=== PATIENT | male | born 1950 | race Caucasian/White ===

== ENCOUNTER 2022-07-25 14:12 | Emergency (ER) | payer MEDICARE, SELFPAY ==
[2022-07-25 15:08] VITALS: BP 185/74; PULSE 69; RESP 16; TEMP 37.2; O2SAT 95; BMI 40.7
--- NOTE | 2022-07-25 15:41 | ED.GENADULT ---
HPI - General Adult General Chief complaint: Extremity Pain/Injury, Lower Stated complaint: Possible Cellulitis both legs Time Seen by Provider: 07/25/22 15:31 History of Present Illness HPI narrative: This 72-year-old male comes in with bilateral lower extremity swelling and erythema with some skin breakdown. This is not a new situation for him but it seems to worsen in the past day or so. He does have diabetes with bilateral neuropathy in his lower extremities along with chronic pedal edema. He is taking a diuretic. He does not report any shortness of breath or chest pain. He does not report any new injury event. He has not had any fevers. Related Data Home Medications Medication Instructions Recorded Confirmed amlodipine 10 mg tablet mg PO DAILY 07/04/22 07/04/22 aspirin 81 mg tablet,delayed mg PO DAILY 07/04/22 07/04/22 release atorvastatin 80 mg tablet mg PO .Bedtime 07/04/22 07/04/22 dabigatran etexilate 150 mg capsule 150 mg PO BID 07/04/22 07/04/22 duloxetine 60 mg capsule,delayed 60 mg PO DAILY 07/04/22 07/04/22 release escitalopram oxalate 20 mg tablet 20 mg PO DAILY 07/04/22 07/04/22 glipizide 5 mg tablet 5 mg PO DAILY 07/04/22 07/04/22 hydrochlorothiazide 12.5 mg tablet mg PO DAILY 07/04/22 07/04/22 lidocaine 5 % topical ointment 1 applic topical .Daily as needed 07/04/22 07/04/22 PRN lisinopril 20 mg tablet 30 mg PO DAILY 07/04/22 07/04/22 magnesium oxide 500 mg capsule mg PO DAILY 07/04/22 07/04/22 metformin 850 mg tablet 850 mg PO BID 07/04/22 07/04/22 metolazone 5 mg tablet mg PO DAILY 07/04/22 07/04/22 multivitamin (Multiple Vitamins 1 tab PO QDAY 07/04/22 07/04/22 tablet) ropinirole 2 mg tablet 2 mg PO .Bedtime 07/04/22 07/04/22 torsemide 20 mg tablet 40 mg PO DAILY 07/04/22 07/04/22 trazodone 150 mg tablet mg PO .Bedtime 07/04/22 07/04/22 Previous Rx's Medication Instructions Recorded tamsulosin 0.4 mg capsule 0.4 mg PO QDAY #30 caps 07/04/22 cephalexin 500 mg capsule 500 mg PO TID 7 days #21 caps 07/25/22 Allergies Allergy/AdvReac Type Severity Reaction Status Date / Time No Known Allergies Allergy Verified 07/04/22 10:56 Review of Systems Status of ROS: Reports: 10 or more systems reviewed and unremarkable except as noted in History and below Narrative: Constitutional: No fevers, no weight gain or loss. Eyes: No discharge. No vision changes. HENT: No congestion, no sore throat, no ear pain. Cardiovascular: No chest pain, no palpitations. Respiratory: No shortness of breath, no wheezes, no cough. Gastrointestinal: No abdominal pain, no vomiting, no diarrhea. Genitourinary: No dysuria, no hematuria. Musculoskeletal: Normal range of motion. Bilateral lower extremity swelling which is worse recently with some erythema that is increased and areas of skin breakdown. Skin: No rashes, no pruritis. Neurological: No dizziness, weakness, sensory change, speech change. Endo/Heme/Allergies: No bruising or bleeding. No polydipsia. Pysch: no suicidality, no anxiety, no insomnia. All other systems reviewed and are negative. [facility] Medical History (Updated 07/25/22 @ 17:17 by Aubrey Noland MD) Acute kidney injury Arthralgia of hip Behavioral change Bladder spasm Fatigue Hypotension Impaired glucose tolerance Pain and swelling of right elbow Squamous cell carcinoma Surgical History (Updated 04/27/22 @ 10:54 by Conrad Myles) History of colectomy History of removal of neck cyst Family History (Updated 04/07/22 @ 13:36 by Stacey Miner) Mother Cancer Father Heart disease Social History (Updated 04/07/22 @ 13:37 by Stacey Miner) Narrative: Does not drink alcohol Does not use illicit drugs Nonsmoker Smoking Status: Never smoker How often do you have a drink containing alcohol: 2-3 times a week AUDIT-C Alcohol total score: 3 Non-prescribed substance use: denies use Exam Narrative: Exam Narrative: Constitutional: Well-developed, well-nourished, no acute distress. HEENT: Normocephalic, atraumatic. Neck: Normal range of motion. Nontender. Supple. Heart: Regular. No murmurs. Normal rate. Intact distal pulses. Lungs: Clear to auscultation. No chest discomfort. No wheezes, rhonchi, or rales. Abdomen: Normal bowel sounds. Nontender. No rebound tenderness. Genitalia: Deferred. Back: No midline tenderness. Normal range of motion. Extremities: Normal range of motion. Bilateral large lower extremity edema with erythema and skin breakdown. Skin: No rash. Warm. No pallor. Neurologic: No altered sensation. No weakness. Alert and oriented. Psychiatric: No suicidality. No anxiety or depression. No insomnia. Nursing notes and vitals signs are reviewed. Const: Vital Signs, click to edit/add: Vital Signs - 24 hr 07/25/22 15:08 07/25/22 16:33 Temperature 98.9 F Pulse Rate [Pulse Oximeter] 69 69 Respiratory Rate 16 20 Blood Pressure [ri ght lower arm] 185/74 H 173/82 H Pulse Oximetry 95 96 Oxygen Delivery Me thod Room Air Room Air Course Vital Signs Vital signs: Initial Vital Signs Temperature 98.9 F 07/25/22 15:08 Temperature Source Temporal Artery Scan 07/25/22 15:08 Pulse Rate 69 07/25/22 15:08 Respiratory Rate 16 07/25/22 15:08 Blood Pressure 185/74 H 07/25/22 15:08 Blood Pressure Mean 111 07/25/22 15:08 Blood Pressure Position Sitting 07/25/22 15:08 Pulse Oximetry 95 07/25/22 15:08 Oxygen Delivery Method 07/25/22 15:08 Vital Signs Temperature 98.9 F 07/25/22 15:08 Pulse Rate 69 07/25/22 15:08 Respiratory Rate 16 07/25/22 15:08 Blood Pressure 185/74 H 07/25/22 15:08 Pulse Oximetry 95 07/25/22 15:08 Oxygen Delivery Method 07/25/22 15:08 Temperature 98.9 F 07/25/22 15:08 Pulse Rate 69 07/25/22 16:33 Respiratory Rate 20 07/25/22 16:33 Blood Pressure 173/82 H 07/25/22 16:33 Pulse Oximetry 96 07/25/22 16:33 Oxygen Delivery Method 07/25/22 16:33 Medical Decision Making MDM Narrative Medical decision making narrative: This patient comes in with his out of concerned that he may have an infection in his lower extremities. He does have large pedal edema which is chronic but seems worse according to them over the past few days. He is taking a diuretic and states that he is urinating frequently. He has not had any fevers. Labs were drawn and results with reassuring findings. He has a normal white count and his lactate is normal also. The patient had taken 4 doses of amoxicillin that were at home. This was out of concern of an infection in his lower extremities. His lab results and actually the exam are not obvious for such infection but he certainly is at risk given the large edema and his diabetic neuropathy. I did prescribe Keflex 3 times daily for 1 week. I advised him to increase his diuretic to 2 tablets daily for a week or so for better diuresis. He also knows that he should keep his legs elevated when sitting. Lab Data Labs: Lab Results 07/25/22 07/25/22 07/25/22 Range/Units 16:01 16:01 16:01 WBC 7.53 (4.50-11.00) K/uL RBC 4.14 L (4.30-5.90) m/uL Hgb 12.3 L (13.5-17.5) gm/dL Hct 37.5 (37.0-53.0) % MCV 91 (80-100) fL MCH 30 (26-34) pg MCHC 33 (32-36) gm/dL RDW Coeff of Ellie 12.2 (11.5-15.5) % Plt Count 203 (140-440) K/uL Neut % (Auto) 60.9 (42.0-72.0) % Lymph % (Auto) 25.5 (20-44) % [place] % (Auto) 9.3 (0.0-11.0) % Eos % (Auto) 3.2 (0.0-7.0) % Baso % (Auto) 0.7 (0.0-3.0) % Neut # (Auto) 4.59 (1.7-7.0) K/uL Lymph # (Auto) 1.92 (0.90-2.90) K/uL [place] # (Auto) 0.70 (0.00-0.90) K/UL Eos # (Auto) 0.24 (0.00-0.50) K/uL Baso # (Auto) 0.05 (0.00-0.30) K/uL Abs Immat Gran (auto) 0.03 (0.00-0.30) K/uL Sodium 136 (135-149) mmol/L Potassium 4.2 (3.6-5.1) mmol/L Chloride 102 (96-114) mmol/L Carbon Dioxide 27 (20-32) mmol/L BUN 19 (7-30) mg/dL Creatinine 1.1 (0.5-1.5) mg/dL Estimated Creat Clear 64.67 Estimated GFR 70 ml/min Glucose 150 H (60-115) mg/dL Lactate (0.5-1.9) mmol/L Calcium 9.4 (8.4-10.6) mg/dL NT-Pro-B Natriuret Pep 181 H Cancelled (0-125) PG/mL 07/25/22 Range/Units 16:01 WBC (4.50-11.00) K/uL RBC (4.30-5.90) m/uL Hgb (13.5-17.5) gm/dL Hct (37.0-53.0) % MCV (80-100) fL MCH (26-34) pg MCHC (32-36) gm/dL RDW Coeff of Ellie (11.5-15.5) % Plt Count (140-440) K/uL Neut % (Auto) (42.0-72.0) % Lymph % (Auto) (20-44) % [place] % (Auto) (0.0-11.0) % Eos % (Auto) (0.0-7.0) % Baso % (Auto) (0.0-3.0) % Neut # (Auto) (1.7-7.0) K/uL Lymph # (Auto) (0.90-2.90) K/uL [place] # (Auto) (0.00-0.90) K/UL Eos # (Auto) (0.00-0.50) K/uL Baso # (Auto) (0.00-0.30) K/uL Abs Immat Gran (auto) (0.00-0.30) K/uL Sodium (135-149) mmol/L Potassium (3.6-5.1) mmol/L Chloride (96-114) mmol/L Carbon Dioxide (20-32) mmol/L BUN (7-30) mg/dL Creatinine (0.5-1.5) mg/dL Estimated Creat Clear Estimated GFR ml/min Glucose (60-115) mg/dL Lactate 1.1 (0.5-1.9) mmol/L Calcium (8.4-10.6) mg/dL NT-Pro-B Natriuret Pep (0-125) PG/mL Discharge Plan Discharge Clinical Impression: Type 2 diabetes mellitus, Peripheral neuropathy, Pedal edema Patient Disposition: Home, Self-Care Condition: Stable Additional Instructions: Take medication as prescribed. Increase diuretic medications to twice daily for 5-7 days. Keep lower extremities elevated when sitting. Follow-up with primary physician. Prescriptions: New cephalexin 500 mg capsule 500 mg PO TID 7 Days Qty: 21 0RF No Action duloxetine 60 mg capsule,delayed release(DR/EC) 60 mg PO DAILY aspirin 81 mg tablet,delayed release (DR/EC) PO DAILY dabigatran etexilate 150 mg capsule 150 mg PO BID hydrochlorothiazide 12.5 mg tablet PO DAILY glipizide 5 mg tablet 5 mg PO DAILY escitalopram oxalate 20 mg tablet 20 mg PO DAILY trazodone 150 mg tablet PO .Bedtime amlodipine 10 mg tablet PO DAILY ropinirole 2 mg tablet 2 mg PO .Bedtime metolazone 5 mg tablet PO DAILY metformin 850 mg tablet 850 mg PO BID atorvastatin 80 mg tablet PO .Bedtime torsemide 20 mg tablet 40 mg PO DAILY magnesium oxide 500 mg capsule PO DAILY lidocaine 5 % ointment 1 applic topical .Daily as needed PRN Rx Instructions: Apply a thin film topically to affected area(s) daily as needed multivitamin [Multiple Vitamins] Tablet 1 tab PO QDAY tamsulosin 0.4 mg capsule 0.4 mg PO QDAY Qty: 30 12RF lisinopril 20 mg tablet 30 mg PO DAILY Follow Up/Referrals: Katharina Christian MD [Primary Care Provider] - Stand Alone Forms: [facility] Info Instructions
--- OUTSIDE RECORDS SUMMARY | 2022-07-25 16:05 | XMS_ITS | Encounter Summary ---
:1950 Author Organization [place] Address [facility] [place] [address] Care Team Providers Name Role Phone Freedom Monge MD Primary Care Provider [phone] Encounter Details Date Type Department Care Team Description 05/11/2016 Telephone [facility] Ethan Chance RN [place] [address] [place] [address] Social History Tobacco Use Types Packs/Day Years Used Date Never Smoker Smokeless Tobacco: Never Used Alcohol Use Standard Drinks/Week Comments No 0.8 (1 standard drink = 0.6 oz pure alco hol) Sex Assigned at Date Recorded Not on file documented as of this encounter Miscellaneous Notes Telephone Encounter - Ethan Chance RN - 05/11/2016 11:26 AM CDT Received message from patient's who is requesting that medical records her be sent to Dr. JR Fang at the [facility], Dept. Of Neurology. Address: [place] [address] [address] Fox. Will forward note to HIM. Feroz documented in this encounter Plan of Treatment Not on filedocumented as of this encounter Visit Diagnoses Not on filedocumented in this encounter Care Teams Family Caseworker Relationship Specialty Start Date End Date Freedom Monge MD PCP - General 05/05/16 documented as of this encounter
--- OUTSIDE RECORDS SUMMARY | 2022-07-25 16:05 | XMS_ITS | Encounter Summary ---
:1950 Author Organization [place] Address [facility] [place] [address] Care Team Providers Name Role Phone Freedom Monge MD Primary Care Provider [phone] Reason for Visit Reason Comments Loop Recorder Implant Check Annual in office check Encounter Details Date Type Department Care Team Description 05/05/2016 Allied Health/Nurse [facility] Loo p Recorder Implant Visit [facility] [place] Check (Annual in off... [address] [place] [address] Social History Tobacco Use Types Packs/Day Years Used Date Never Smoker Smokeless Tobacco: Never Used Alcohol Use Standard Drinks/Week Comments No 0.8 (1 standard drink = 0.6 oz pure alco hol) Sex Assigned at Date Recorded Not on file documented as of this encounter Progress Notes Arelis Barreto RN, RN - 05/05/2016 10:55 AM CDT [employer] Reveal Linq Loop recorder Since last remote (February 01, 2016) Patient has had 1 AF episode lasting 4 minutes, average V rate was at 86 BPM; 3 pauses detected- all occurred during sleep. 2 Tachy episodes logged- however EGM showsoversensing of the T waves and double counting. Heart rate histogram is stable with good variability; there are V beats logged up to 220 BPM (histogram has combined data since March 2014); Patient is seeing MD's at [place], with the confirmation of PAF he is now on warfarin. He will continue to monitor his loop recorder to see frequency and durations of his episodes. Once the battery is depleted will will discontinue monitoring, however patient does not wish to have it removed. Battery status is currently at good. Continue Q 3 month transmissions, we will send [facility] [place] a copy of our findings for their records. PIO De Souza I have reviewed and interpreted the device interrogation. The device is functioning within normal device parameters. I agree with the current findings, assessment and plan. documented in this encounter Plan of Treatment Not on filedocumented as of this encounter Procedures Procedure Name Priority Date/Time Associated Diagnosis Comme nts HC INTERR DEVICE EVAL IN Routine 05/05/2016 History of TIA ( transient PERSON, CARDIAC RHYTHM ischemic attack) and stroke MONITOR Encounter for loop recorder check documented in this encounter Results INTERR DEVICE EVAL IN PERSON, ILR ([id number]) (05/05/2016) Narrative This result has an attachment that is no t available. Regige Jordan MD PROCEDURES documented in this encounter Visit Diagnoses Diagnosis History of TIA (transient ischemic attac k) and stroke - Primary Encounter for loop recorder check documented in this encounter Care Teams Data Management Analyst Relationship Specialty Start Date End Date Freedom Monge MD PCP - General 05/05/16 documented as of this encounter
--- OUTSIDE RECORDS SUMMARY | 2022-07-25 16:05 | XMS_ITS | Encounter Summary ---
:1950 Author Organization [place] Address [address] [place] [address] Care Team Providers Name Role Phone Freedom Monge MD Primary Care Provider [phone] Encounter Details Date Type Department Care Team Description 08/17/2019 Travel Social History Tobacco Use Types Packs/Day Years Used Date Never Smoker 0 Smokeless Tobacco: Never Used Alcohol Use Standard Drinks/Week Comments Yes 0.8 (1 standard drink = 0.6 oz pure alco hol) 3 Rebel's Hard Lemonade/week Alcohol Habits Answer Date Recorded How often do you have a drink containing Not asked alcohol? How many drinks containing alcohol do you Not asked have on a typical day when you are drinking? How often do you have six or more drinks on Not asked one occasion? Comment: 3 Rebel's Hard Lemonade/week 08/17/2019 Sex Assigned at Date Recorded Not on file documented as of this encounter Plan of Treatment Not on filedocumented as of this encounter Visit Diagnoses Not on filedocumented in this encounter Care Teams Business Team Leader Relationship Specialty Start Date End Date Freedom Monge MD PCP - General 05/05/16 documented as of this encounter
--- OUTSIDE RECORDS SUMMARY | 2022-07-25 16:05 | XMS_ITS | Encounter Summary ---
:1950 Author Organization [place] Address [facility] [place] [address] Care Team Providers Name Role Phone Freedom Monge MD Primary Care Provider [phone] Reason for Visit Reason Onset Date Comments Nurse Advice Line 11/03/2016 infection screening Encounter Details Date Type Department Care Team Description 11/03/2016 Telephone [facility] Taya Cormier Nurse Advice Line Nurse Advisors PIO Marin (infection screening) [address] [place] [address] Social History Tobacco Use Types Packs/Day Years Used Date Never Smoker Smokeless Tobacco: Never Used Alcohol Use Standard Drinks/Week Comments No 0.8 (1 standard drink = 0.6 oz pure alco hol) Sex Assigned at Date Recorded Not on file documented as of this encounter Miscellaneous Notes Telephone Encounter - Taya Cormier RN - 11/03/2016 7:19 AM CRUCIBLE FURNACE TENDER Call Type: Triage Call Presenting Problem: was calling for patient and patient bumped his elbow and now has significant swelling to area. wants to make an appointment to see provider this am. Triager advised to call back at 0730 when the clinics open up. Triage Note: Guideline Title: Information Only Call; No Symptom Triage (Adult) Recommended Disposition: Call Provider When Office is Open Original Inclination: Wanted to speak with a nurse Override Disposition: Intended Action: Call PCP/HCP Physician Contacted: No Requesting regular office appointment ? YES Sign(s) or symptom(s) associated with a diagnosed condition or with a new illness ? NO Requesting information about provider, services or community resources ? NO Call back to complete assessment/clarification of information from prior caller to complete triage ? NO Physician Instructions: Care Advice: IBLE FURNACE TENDER documented in this encounter Plan of Treatment Not on filedocumented as of this encounter Visit Diagnoses Not on filedocumented in this encounter Care Teams Early Childhood Special Educator Relationship Specialty Start Date End Date Freedom Monge MD PCP - General 05/05/16 documented as of this encounter
--- OUTSIDE RECORDS SUMMARY | 2022-07-25 16:05 | XMS_ITS | Encounter Summary ---
:1950 Author Organization [facility] Address [address] [place] [address] Care Team Providers Name Role Phone Freedom Monge MD Primary Care Provider Reason for Visit Reason Comments Foot Problems Encounter Details Date Type Department Care Team Description 06/22/2018 Office Visit [facility] [place], Abrasion o f toe, [facility] [place] VERA Christina unspecified [address] laterality, initial [place], [place] [address] encounter (Primary [id number] [place], [place] Dx) [phone] (Wo rk) Social History Tobacco Use Types Packs/Day Years Used Date Never Smoker Smokeless Tobacco: Never Used Tobacco Cessation: Counseling Given: No Alcohol Use Standard Drinks/Week Comments No 0.8 (1 standard drink = 0.6 oz pure alco hol) Sex Assigned at Date Recorded Not on file documented as of this encounter Last Filed Vital Signs Vital Sign Reading Time Taken Comments Blood Pressure - - Pulse - - Temperature - - Respiratory Rate - - Oxygen Saturation - - Inhaled Oxygen Concentration - - Weight 122.5 kg (270 lb) 06/22/2018 10:11 AM CDT Height 185.4 cm (6' 1) 06/22/2018 10:11 AM CDT Body Mass Index 35.62 06/22/2018 10:11 AM CDT documented in this encounter Patient Instructions Patient InstructionsAlma Hendricks - 06/22/2018 10:15 AM CDT Thank you for choosing [facility]! DR[facility] LOCATIONS: MONDAY - Monday - [place] [address] [facility] [address] [address] [place] [address] [place] [address] [phone] MONDAY AM - [place] MONDAY PM - [place] [address] [place] [address] [place] [address] [phone] Monday - [place] SET UP SURGERY: [phone] [address] APPOINTMENTS: [phone] [place] [address] BILLING QUESTIONS: [phone] FAX NUMBER: [phone] Follow Up: 3 wks DIABETES AND YOUR FEET Diabetes can result in several problems in the feet including ulcers (open sores) and amputations. Two of the most important reasons why people develop foot problems when they have diabetes is : 1. Neuropathy (loss of feeling) 2. Vascular disease (loss or decrease of blood flow). Neuropathy is a term used to describe a loss of nerve function. Patients with diabetes are at risk of developing neuropathy if their sugars continue to run high and are above the normal value. One theory for neuropathy is that the extra sugar in the body enters the nerves and is broken down. These by- products build up in the nerve causing it to swell and impairing nerve function. Often times, this can be prevented by controlling your sugars, dieting and exercise. When a person develops neuropathy, they usually begin to feel numbness or tingling in their feet andsometime in their legs. Other symptoms may include painful burning or hot feet, tingling or feeling like insects or ants are crawling on your feet or legs. If the diabetes is sever and the sugars run high for long periods of time, neuropathy can also occur in the hands. Vascular disease is a term used to describe a loss or decrease in circulation (blood flow). There paul problem in getting blood and oxygen to areas that need it. Similar to neuropathy, sugars can buildup in the patterson of the arteries (blood vessels) and cause them to become swollen, thickened and hardened. This decreases the amount of blood that can go to an area that needs it. Though this is common in the legs of diabetic patients, it can also affect other arteries (blood vessels) in the body such as in the heart and eyes. In the legs, vascular disease usually results in cramping. Patients who develop leg cramps after walking the same distance every time (i.e. One block, half a mile, ect.) need to let their doctors know so that their circulation may be checked. Cramps causing severe pain in the feet and/or legs while sleeping and the cramps go away when you stand or hang your legs off the side of the bed, may also be asign of poor blood circulation. Occasional cramping in cold weather or on rare occasions with activity may not be due to poor circulation, but you should inform your doctor. PREVENTION OF THESE DISEASES The madison to prevention is good blood sugar control. Poor blood sugar control is a big reason many of these problems start. Physical activity (exercise) is a very good way to help decrease your blood sugars. Exercise can lower your blood sugar, blood pressure, and cholesterol. It also reduces your risk for heart disease and stroke, relieves stress, and strengthens your heart, muscles and bones. In addition, regular activity helps insulin work better, improves your blood circulation, and keeps your joints flexible. If you're trying to lose weight, a combination of exercise and gallagher food choices can help you reach your target weight and maintain it. PAIN MANAGEMENT 1.Blood Sugar Control - Most important 2. Medications such as: Amytriptylline, duloxetine, gabapentin, lyrica, tramadol 3. Nutritional therapy: Vitamin B6 (100mg daily), Vitamin B12 (75mcg daily), Vitamin D 2000 IU daily), Alpha-Lipoic Acid (600-1800mg daily), Bocruf-X-Hhelaedqd (500-1000mg TID, L-methyl folate (1500mcgdaily) Metformin can block Vitamin B6 and B12 so it is important to supplement FOOT CARE RECOMMENDATIONS 1. Wash your feet with lukewarm water and a mild soap and then dry them thoroughly, especially between the toes. 2. Examine your feet daily looking for cuts, corns, blisters, cracks, ect, especially after wearingnew shoes. Make sure to look between your toes. If you cannot see the bottom of your feet, set a mirror on the floor and hold your foot over it, or ask a spouse, friend or family member to examine yourfeet for you. Contact your doctor immediately if new problems are noted or if sores are not healing. 3. Immediately apply moisturizer to the tops and bottoms of your feet, avoiding areas between the toes. Hand lotion (Intesive Care, Merline, Eucerin, Neutrogena, Curel, ect) is sufficient unless your doctor prescribes a medicated lotion. Apply sunscreen to your feet when going swimming outside. 4. Use clean comfortable shoes, wear white socks (if you have any bleeding or drainage, you will see it on white socks). Socks should not have thick seams or cut off the circulation around the leg. Break in new shoes slowly and rotate with older shoes until broken in. Check the inside of your shoes with your hand to look for areas of irritation or objects that may have fallen into your shoes. 5. Keep slippers by the side of your bed for use during the night. 6. Shoes should be fitted by a professional and should not cause areas of irritation. Check your feet regularly when wearing a new pair of shoes and replace them as needed. 7. Talk to your doctor about proper exercise. Exercise and stretching stimulate blood flow to your feet and maintain proper glucose levels. 8. Monitor your blood glucose level as instructed by your doctor. Notify your doctor immediately ifyour blood sugar is abnormally high or low. 9. Cut your nails straight across, but then gently round any sharp edges with a cardboard nail file.If you have neuropathy, peripheral vascular disease or cannot see that well to trim your own toenails contact [facility] ([phone]) or [facility] ([phone]). THINGS TO AVOID DOING 1. Do not soak your feet if you have an open sore. Use only lukewarm water and always check the temperature with your hand as hot water can easily burn your feet. 2. Never use a hot water bottle or heating pad on your feet. Also do not apply cold compresses to your feet. With decreased sensation, you could burn or freeze your feet. 3. Do not apply any of these to your feet: - Over the counter medicine for corns or warts - Harsh chemicals like boric acid - Do not self-treat corns, cuts, blisters or infections. Always consult your doctor. 4. Do not wear sandals, slippers or walk barefoot, especially on hot sand or concrete or other harsh surfaces. 5. If you smoke, stop!!! Body Mass Index (BMI) Many things can cause foot and ankle problems. Foot structure, activity level, foot mechanics and injuries are common causes of pain. One very important issue that often goes unmentioned, is body weight. Extra weight can cause increased stress on muscles, ligaments, bones and tendons. Sometimes just afew extra pounds is all it takes to put one over her/his threshold. Without reducing that stress, itcan be difficult to alleviate pain. Some people are uncomfortable addressing this issue, but we feelit is important for you to think about it. As Foot & Ankle specialists, our job is addressing the lower extremity problem and possible causes. Regarding extra body weight, we encourage patients to discuss diet and weight management plans with their primary care doctors. It is this team approach that gives you the best opportunity for pain relief and getting you back on your feet. documented in this encounter Progress Notes Sanford Torres DPM - 06/22/2018 10:15 AM CDT Foot & Ankle Surgery June 22, 2018 CC: foot problems I was asked to see Damon Mccall regarding the chief complaint by: self HPI: Pt is a 68 year old male who presents with above complaint. Non healing wounds on his feet x 3-4 weeks. They sent me over. DMII, doesn't take meds or check blood sugar medications. Describes burning sensation, pain 6-7-8-9/10 twice a day. No treatments. ROS: Pos for CC. The patient denies current nausea, vomiting, chills, fevers, belly pain, calf pain,chest pain or SOB. Complete remainder of ROS is otherwise neg. VITALS: Vitals: 06/22/18 1011 Weight: 270 lb (122.5 kg) Height: 6' 1 (1.854 m) PMH: Past Medical History: Diagnosis Date ??? Hypertension ??? Irregular heart beat ??? Neuropathy ??? TIA (transient ischaemic attack) ??? Unspecified cerebral artery occlusion with cerebral infarction SXHX: Past Surgical History: Procedure Laterality Date ??? COLONOSCOPY ??? COLONOSCOPY 10/17/2012 Procedure: COLONOSCOPY; Colonoscopy; Surgeon: Damon Jaimes MD; Location: [facility] ??? GI SURGERY ??? RESECTION ABDOMINAL PERINEAL MEDS: Current Outpatient Prescriptions Medication ??? amLODIPine (NORVASC) 5 MG tablet ??? aspirin 81 MG tablet ??? blood glucose (ACCU-CHEK KRISTI) test strip ??? cyanocobalamin 500 MCG SUBL ??? dabigatran ANTICOAGULANT (PRADAXA ANTICOAGULANT) 150 MG capsule ??? DULoxetine (CYMBALTA) 60 MG EC capsule ??? escitalopram (LEXAPRO) 20 MG tablet ??? Folic Acid-Vit B6-Vit B12 (FOLTABS 800 PO) ??? furosemide (LASIX) 20 MG tablet ??? GABAPENTIN PO ??? HYDROcodone-acetaminophen (NORCO) 7.5-325 MG per tablet ??? lisinopril (PRINIVIL,ZESTRIL) 30 MG tablet ??? MAGNESIUM OXIDE PO ??? ROPINIROLE HCL PO ??? simvastatin (ZOCOR) 20 MG tablet No current facility-administered medications for this visit. ALL: No Known Allergies FMH: Family History Problem Relation Age of Onset ??? Cancer Mother ??? C.A.D. Father ??? Diabetes Sister SocHx: Social History Social History ??? Marital status: Spouse name: N/A ??? Number of children: N/A ??? Years of education: N/A Occupational History ??? Not on file. Social History Main Topics ??? Smoking status: Never Smoker ??? Smokeless tobacco: Never Used ??? Alcohol use No ??? Drug use: No ??? Sexual activity: Yes Partners: Female Other Topics Concern ??? Parent/Sibling W/ Cabg, Mi Or Angioplasty Before 65f 55m? Yes Social History Narrative EXAMINATION: Gen: No apparent distress Neuro: A&Ox3, no deficits Psych: Answering questions appropriately for age and situation with normal affect Head: NCAT Eye: Visual scanning without deficit Ear: Response to auditory stimuli wnl Lung: Non-labored breathing on RA noted Abd: NTND per patient report Lymph: Neg for pitting/non-pitting edema BLE Vasc: Pulses palpable, CFT minimally delayed Neuro: Light touch sensation diminished distally with paresthesias Derm: Superficial dry stable eschars R 2nd and 4th toes and L 2nd, 3rd, 4th toes. No SOI MSK: ROM, strength wnl without limitation, no pain on palpation noted. Calf: Neg for redness, swelling or tenderness Labs: Hemoglobin A1C 7.8 Assessment: 68 year old male with DMII with neuropathy; superficial abrasions toes bilateral Plan: Discussed etiologies, anatomy and options 1. DMII with sensory neuropathy -Regarding the patient's diabetes, we dispensed and discussed proper diabetic foot care. This includes closely monitoring their blood sugars, closely monitoring their blood pressures, and evaluating their feet at least once per day. We also discussed potential problems associated with barefoot/sock amb ulation and soaking their feet. -A1c draw today, see above -I advised he talk with his PCP about a management plan for his DMII. His wounds are unimpressive today but uncontrolled DMII can complicate even the stables of wounds 2. Superficial abrasions bilateral lower extremity toes -daily cares - wash/dry, abx ointment/bandaid until healed -accommodative shoe gear to minimize rubbing on toes Follow up: 3 weeks or sooner with acute issues Patient's medical history was reviewed today Body mass index is 35.62 kg/(m^2). Weight management plan: Patient was referred to their PCP to discuss a diet and exercise plan. Sanford Torres DPM FACFAS FACFAOM Podiatric Foot & Ankle Surgeon [facility] [phone] documented in this encounter Plan of Treatment Not on filedocumented as of this encounter Procedures Procedure Name Priority Date/Time Associated Diagnosis Comme nts HEMOGLOBIN A1C Routine 06/22/2018 10:29 AM Abrasion of toe, Re sults for this CDT unspecified procedure are i n laterality, initial the resu lts encounter section. documented in this encounter Results (ABNORMAL) Hemoglobin A1c (06/22/2018 10:29 AM CDT) P athologist Signature Hemoglobin A1C 7.8 (H) 0 - 5.6 % 06/22/2018 SAWYER 11:10 AM CDT [facility] Comment: Normal <5.7% Prediabetes 5.7-6.4% ??Diab etes 6.5% or higher - adopted from ADA consensus guidelines. Specimen Anatomical Collection Method Collection Time Receive d Time (Source) Location / / Volume Laterality Blood specimen 06/22/2018 10:29 8 (specimen) AM CDT 10:31 AM CDT Sanford Torres DPM LAB - BLOOD ORDERABLES Performing Organization Address City/State/ZIP Code Phon e Number [facility] [address] [place] [address] documented in this encounter Visit Diagnoses Diagnosis Abrasion of toe, unspecified laterality, initial encounter - Primary documented in this encounter Care Teams Public Housing Manager Relationship Specialty Start Date End Date Freedom Monge MD PCP - General 05/05/16 documented as of this encounter
--- OUTSIDE RECORDS SUMMARY | 2022-07-25 16:05 | XMS_ITS | Clinical Summary ---
:1950 Author Organization [facility] Address [address] [place] [address] Care Team Providers Name Role Phone Freedom Monge MD Primary Care Provider [phone] Allergies No known active allergies Medications Medication Sig Dispensed Refills Start Date End Date Status lisinopril Take 20 mg by 0 Activ e (PRINIVIL,ZESTRIL) 30 mouth 2 times MG tablet daily simvastatin (ZOCOR) 20 Take 20 mg by 0 Active MG tablet mouth every morning MAGNESIUM OXIDE PO Take 500 mg by 0 Active mouth every morning ROPINIROLE HCL PO Take 2 mg by mouth 0 Active At Bedtime (Takes 4 x 0.5mg tabs for a total of 2mg at bedtime) aspirin 81 MG Take 1 tablet (81 30 tablet 0 04/13/2014 Active tabletIndications: TIA mg) by mouth daily on medication Stop taking aspirin while on SUBQ lovenox injections. When lovenox is stopped start ababy aspirin PO daily blood glucose Use to test blood 100 strip 2 04/23/2014 Active (ACCU-CHEK KRISTI) test sugars 1 times stripIndications: daily for Syncope and collapse dizziness.. Brand per patient preference and health care plan. cyanocobalamin [address] 2 tablets 60 tablet 5 05/19/2014 Active SUBLIndications: (1,000 mcg) under Vitamin B12 deficiency the tongue daily (non anaemic) amLODIPine (NORVASC) 5 Take 1 tablet (5 90 tablet 2 06/18/2014 Active MG tabletIndications: mg) by mouth daily HTN (hypertension) Folic Acid-Vit B6-Vit Take 1 tablet by 0 Active B12 (FOLTABS 800 PO) mouth every morning HYDROcodone-acetaminop Take 1 tablet by 0 Active hen (NORCO) 7.5-325 MG mouth every per tablet evening GABAPENTIN PO Take 1,200 mg by 0 Active mouth every evening furosemide (LASIX) 20 Take 1 tablet (20 30 tablet 0 02/29/2016 Active MG tabletIndications: mg) by mouth every Bilateral edema of morning lower extremity DULoxetine (CYMBALTA) TAKE 1 CAPSULE BY 0 11/15/2016 Active 60 MG EC capsule MOUTH EVERY EVENING escitalopram (LEXAPRO) Take 20 mg by 0 11/14/2016 Active 20 MG tablet mouth dabigatran Take 150 mg by 0 11/14/2016 Act ángel ANTICOAGULANT (PRADAXA mouth ANTICOAGULANT) 150 MG capsule Active Problems Problem Noted Date Headache around the eyes 02/28/2016 Hyperlipidemia LDL goal <100 05/16/2014 Hypertension 04/28/2014 Health Fdc 04/15/2014 Overview: Status: NA - no longer [facility] patient Towboat Pilot: Radha Montoya RN See Letters for [facility] Emergency Care Plan Date: October 27, 2014 Seizure 04/11/2014 Overview: Diagnosis in progress TIA on medication 03/21/2014 Overview: DR AGUERO Resolved Problems Problem Noted Date Resolved Date Acute bilateral low back pain with left-sided sciatica 02/1304/19/2017 Family History Medical History Relation Comments C.A.D. Father Cancer Mother Diabetes Sister Relation Status Comments Father Mother Sister Social History Tobacco Use Types Packs/Day Years Used Date Never Smoker 0 Smokeless Tobacco: Never Used Tobacco Cessation: Counseling Given: No Alcohol Use Standard Drinks/Week Comments Yes 0.8 [...] Assigned at Date Recorded Not on file Last Filed Vital Signs Vital Sign Reading Time Taken Comments Blood Pressure 174/91 03/27/2020 7:18 PM CDT Pulse 69 03/27/2020 7:18 PM CDT Temperature 36.7 ??C (98.1 ??F) 03/27/2020 5:59 PM CDT Respiratory Rate 17 03/27/2020 5:59 PM CDT Oxygen Saturation 99% 03/27/2020 7:28 PM CDT Inhaled Oxygen Concentration - - Weight 129.3 kg (285 lb) 03/27/2020 5:59 PM CDT Height 185.4 cm (6' 1) 03/27/2020 5:59 PM CDT Body Mass Index 37.6 03/27/2020 5:59 PM CDT Plan of Treatment Health Maintenance Due Date Last Done Comments ADVANCE CARE PLANNING 1950 ANNUAL REVIEW OF HM ORDERS 1950 CT COLONOGRAPHY 1950 FIT-DNA (Cologuard) 1950 FIT 1950 FLEX SIG 1950 COVID-19 Vaccine (#1) 1950 HEPATITIS C SCREENING 1966 DTAP/TDAP/TD IMMUNIZATION 1973 (1 - Tdap) MEDICARE ANNUAL WELLNESS 2013 VISIT FALL RISK ASSESSMENT 04/21/2015 04/21/2014 ZOSTER IMMUNIZATION (2 of 08/06/2018 06/11/2018 2) Pneumococcal Vaccine: 65+ 06/11/2019 06/11/2018, 06/11/2018 Years (2 - PCV) LIPID 02/28/2021 02/29/2016, 03/21/2014 PHQ-2 (once per calendar 10/23/2021 year) INFLUENZA VACCINE (#1) 2022 06/19/2019, 06/19/2019, 09/20/2018, Additional history exists COLONOSCOPY 10/17/2022 10/17/2012, 10/17/2012 COLORECTAL CANCER SCREENING 10/17/2022 AORTIC ANEURYSM SCREENING Completed 05/26/2012 (SYSTEM ASSIGNED) HEPATITIS B IMMUNIZATION Aged Out No long er eligible based on patient 's age to complete this topic IPV IMMUNIZATION Aged Out No longer eligi ble based on patient 's age to complete this topic MENINGITIS IMMUNIZATION Aged Out No longe r eligible based on patient 's age to complete this topic Medical Devices Implanted Type Area Hall Director Device Shelf Model / Identifier Expiration Serial / Date Lot Implantable Loop Recorder Implantable [employer] REVEAL LINQ [id number] / Implanted: 03/25/2014 by Naomie Boyd MD (Quantity not on file) Loop R ecorder [id number] / Insurance Payer Benefit Plan / Subscriber ID Effective Phone Address T ype Group Dates COMMERCIAL GENERIC [id number] 2011-Pre [phone] Indemnity COMMERCIAL [phone] [place] [address] BC BCBS MEDICARE [id number] 2019-Prese [phone] PO LASHAUN X Medicare [place]VANTAGE [id number] [place] [address] [phone] [id number] (Home) [place] [address] [id number] Worker's Employer [phone] [address],INC Compensation 6 (Home) [place] [address] Damon Mccall Medicare Self 1950 [phone] [id number] [address] (Home) [place] none (Work) [place] [id number] Advance Directives For more information, please contact: [phone] Latest Code Status on File Code Status Date Activated Date Inactivated Comments Full Code 02/29/2016 10:26 AM 08/17/2019 2:19 PM DNI 02/28/2016 9:07 PM 02/29/2016 10:26 AM Full Code 04/13/2014 2:56 PM 02/28/2016 9:07 PM Full Code 04/11/2014 5:02 PM 04/13/2014 2:56 PM Full Code 03/27/2014 10:57 AM 04/11/2014 5:02 PM Care Teams Shotgun Shell Loading Machine Operator Relationship Specialty Start Date End Date Freedom Monge MD PCP - General 05/05/16
--- OUTSIDE RECORDS SUMMARY | 2022-07-25 16:05 | XMS_ITS | Encounter Summary ---
:1950 Author Organization [facility] Address [facility] [place] [address] Care Team Providers Name Role Phone Freedom Monge MD Primary Care Provider [phone] Reason for Visit Reason Comments Loop Recorder Implant Check remote Encounter Details Date Type Department Care Team Description 07/06/2017 Allied Health/Nurse [facility] L[facility] p Recorder Implant Visit [facility] [place] Check (remote) [address] [facility] [address] [place] [address] Social History Tobacco Use Types Packs/Day Years Used Date Never Smoker Smokeless Tobacco: Never Used Alcohol Use Standard Drinks/Week Comments No 0.8 (1 standard drink = 0.6 oz pure alco hol) Sex Assigned at Date Recorded Not on file documented as of this encounter Progress Notes Ame Davison RN - 07/06/2017 4:30 PM CDT Med[employer] Reveal Linq Loop Recorder (last remote check was over a year ago: 02/01/2016) Symptom: 0 Tachy: 15 Pause: 7 Ace: 0 AT: 0 AF: 10 Time in AT/AF: 0.0% Heart rate: histogram data unavailable Battery: EOS since 06/13/2017 Careplan: previous notes say pt had device implanted due to CVA/TIA to monitor for AF. AF has been diagnosed and pt is now on warfarin. Notes say pt wanted to keep monitoring ILR until battery runs outto know the frequency of AF, and he does not want the device explanted. Notes: 6 EGMs available for tachy episodes, all show either noise or T wave oversensing (no true tachycardia noted on this check) 3 EGMs available for pause episodes, all show undersensing (no true pauses noted on this check) 9 EGMs available for AF episodes, all show either noise or T wave oversensing (no true AF noted on this check) Called pt with results, and informed him his ILR battery has reached end of life, so we will not be monitoring his loop recorder any more. Pt states understanding. He wants this final report sent to his neurologist at [facility], Dr. Be Loyola. Faxed this report to [phone]. documented in this encounter Plan of Treatment Not on filedocumented as of this encounter Procedures Procedure Name Priority Date/Time Associated Diagnosis Comme nts C ICM/SQ CARDIAC RYTHYM Routine 07/06/2017 10:45 AM Encounter for loop MONITOR REMOTE TECH SERV CDT recorde r check History of TIA (transient ischemic attack) and stroke ZZC INTERROGATION DEVICE Routine 07/06/2017 Encounter for lo op EVAL, SQ CARDIAC RYTHYM recorder check MONITOR SYSTEM History of TIA (transient ischemic attack) and stroke documented in this encounter Results C INTERROGATION DEVICE EVAL, ILR Remote ([id number]) (07/06/2017) Narrative This result has an attachment that is no t available. Austyn Avalos MD PROCEDURES documented in this encounter Visit Diagnoses Diagnosis Encounter for loop recorder check - Prim tatyana History of TIA (transient ischemic attac k) and stroke documented in this encounter Care Teams Network Systems Integrator Relationship Specialty Start Date End Date Freedom Monge MD PCP - General 05/05/16 documented as of this encounter
--- OUTSIDE RECORDS SUMMARY | 2022-07-25 16:05 | XMS_ITS | Encounter Summary ---
:1950 Author Organization [place] Address [facility] [place] [address] Care Team Providers Name Role Phone Sindy Moses MD Primary Care Provider Reason for Visit Reason Onset Date Comments ER F/U 03/01/2016 Inpatient discharge from [facility] on 02/29/2016 Transient Cerebral Ischemia, U nspecified Transient Cerebral Ischemia Type, Bilateral Edema Of L ower Extremity Encounter Details Date Type Department Care Team Description 03/01/2016 Telephone [facility] Bill Thao ER F/U (Inpatient Clinic [place] MD Dewey discharge from [address] on 02/29/2016 [place], [place] Transie nt Cerebral [id number] Ischemia, Unspecified [phone] (Wo rk) Transient Cerebral Ischemia Type, Bilateral Edema Of Lower Extremity ) Social History Tobacco Use Types Packs/Day Years Used Date Never Smoker Smokeless Tobacco: Never Used Alcohol Use Standard Drinks/Week Comments No 0.8 (1 standard drink = 0.6 oz pure alco hol) Sex Assigned at Date Recorded Not on file documented as of this encounter Miscellaneous Notes Telephone Encounter - Radha Montoya RN - 03/02/2016 11:02 AM CDT NOT a [facility] patient any longer Radha Montoya Brim Curler PIO [facility] [phone] Telephone Encounter - Raquel Vail RN - 03/02/2016 8:39 AM CDT Routed to CC per ER protocol Raquel Vail RN, BSN Message handled by Nurse Triage. Telephone Encounter - Sonia Hidalgo - 03/01/2016 2:55 PM CDT Chief Complaint Patient presents with ??? ER F/U Inpatient discharge from [facility] on 02/29/2016 Transient Cerebral Ischemia, Unspecified Transient Cerebral Ischemia Type, Bilateral Edema Of Lower Extremity Sonia Hidalgo/Field Marketing Director documented in this encounter Plan of Treatment Not on filedocumented as of this encounter Visit Diagnoses Not on filedocumented in this encounter Care Teams Cat Hooker Relationship Specialty Start Date End Date Sindy Moses MD PCP - General 02/28/16 05/04/16 [place] [id number] documented as of this encounter
--- OUTSIDE RECORDS SUMMARY | 2022-07-25 16:05 | XMS_ITS | Encounter Summary ---
:1950 Author Organization [facility] Address [facility] [place] [address] Care Team Providers Name Role Phone Freedom Monge MD Primary Care Provider [phone] Reason for Visit Reason Comments Altered Mental Status Encounter Details Date Type Department Care Team Description 08/17/2019 Emergency [facility] nge in [facility] Emergency Dep t STAFF PHYSICAL THERAPY ASSISTANT PREFLIGHT MECHANIC status [address] [facility] EMERGENCY [place]YSICI[place] [address] [address] [facility] [phone] [place], [place] [address] (Wo rk) Social History Tobacco Use Types [...] Sign Reading Time Taken Comments Blood Pressure 170/81 08/17/2019 2:30 PM CDT Pulse 78 08/17/2019 4:00 PM CDT Temperature 36.7 ??C (98 ??F) 08/17/2019 2:25 PM CDT Respiratory Rate 16 08/17/2019 4:19 PM CDT Oxygen Saturation 97% 08/17/2019 3:30 PM CDT Inhaled Oxygen Concentration - - Weight 122.5 kg (270 lb) 08/17/2019 2:33 PM CDT Height - - Body Mass Index 35.62 06/22/2018 10:11 AM CDT documented in this encounter Discharge Instructions AttachmentsThe following attachments cannot be sent through Care Everywhere. Confusion (Faroese)documented in this encounter Medications at Time of Discharge Medication Sig Dispensed Refills Start Date End Date amLODIPine (NORVASC) 5 MG Take 1 tablet (5 mg) 90 tablet 2 06/18/2014 tabletIndications: HTN by mouth daily (hypertension) aspirin 81 MG Take 1 tablet (81 mg) 30 tablet 0 04/13/2014 tabletIndications: TIA on by mouth daily Stop medication taking aspirin while on SUBQ lovenox injections. When lovenox is stopped start ababy aspirin PO daily blood glucose (ACCU-CHEK Use to test blood 100 strip 2 11/2013 KRISTI) test sugars 1 times daily stripIndications: Syncope for dizziness.. Brand and collapse per patient preference and health care plan. cyanocobalamin [address] 2 tablets 60 tablet 5 05/19/20 14 SUBLIndications: Vitamin (1,000 mcg) under the B12 deficiency (non tongue daily anaemic) dabigatran ANTICOAGULANT Take 150 mg by mouth 0 0 11/14/2016 (PRADAXA ANTICOAGULANT) 150 MG capsule DULoxetine (CYMBALTA) 60 TAKE 1 CAPSULE BY 0 10/24 MG EC capsule MOUTH EVERY EVENING escitalopram (LEXAPRO) 20 Take 20 mg by mouth 0 0 11/14/2016 MG tablet Folic Acid-Vit B6-Vit B12 Take 1 tablet by 0 (FOLTABS 800 PO) mouth every morning furosemide (LASIX) 20 MG Take 1 tablet (20 mg) 30 tablet 0 02/29/2016 tabletIndications: by mouth every Bilateral edema of lower morning extremity GABAPENTIN PO Take 1,200 mg by 0 mouth every evening HYDROcodone-acetaminophen Take 1 tablet by 0 (NORCO) 7.5-325 MG per mouth every evening tablet lisinopril Take 20 mg by mouth 2 0 (PRINIVIL,ZESTRIL) 30 MG times daily tablet MAGNESIUM OXIDE PO Take 500 mg by mouth 0 every morning ROPINIROLE HCL PO Take 2 mg by mouth At 0 Bedtime (Takes 4 x 0.5mg tabs for a total of 2mg at bedtime) simvastatin (ZOCOR) 20 MG Take 20 mg by mouth 0 tablet every morning documented as of this encounter ED Notes Katharina Barrios RN - 08/17/2019 2:30 PM CDT Per and daughter pt reported headache on , which is a common signs prior to previous strokes. Also having difficulty lifting right leg yesterday. Pt had increased altered mental status through today. Katharina Barrios RN - 08/17/2019 2:23 PM CDT Pt presents via EMS from home. reports pt was not acting himself around 2200 last night, difficulty finding words and putting his drink in odd places. Hx of multiple strokes. Pt presents with word finding difficulty. ABCs intact. Carolyn Louis RN - 08/17/2019 2:19 PM CDT Bed: ED31 Expected date: Expected time: Means of arrival: Comments: Nia [age] yo M-possible stoke Aidan Marshall APRN CNP - 08/17/2019 2:19 PM CDT History Chief Complaint: Altered Mental Status HPI Damon Mccall is a 69 year old male with a history of hypertension, hyperlipidemia, a-fib, and strokewho presents to the emergency department today for evaluation of altered mental status. 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 She was told by [facility] that he was having several small clots in his brain. states that he has had a steady decline over the past 3-4 days and first complained of a headache 2 days ago. However, he had a severe decline from last night until today. Last night around 2200, hiswife noticed that he was not acting normal. He urinated all over the bathroom floor around 2300. Today, he was walking around the house very confused, placing cups in random places. His daughter noticed he had been dragging his right foot today. At 1100 today, he went to leave the house without shoes on. They deny any vision changes. Per EMS, patient's speech was very garbled. Blood sugar was 112. No recent falls, cough, or cold. Allergies: No known drug allergies Medications: amLODIPine (NORVASC) 5 MG tablet aspirin 81 MG tablet cyanocobalamin 500 MCG SUBL dabigatran ANTICOAGULANT (PRADAXA ANTICOAGULANT) 150 MG capsule DULoxetine (CYMBALTA) 60 MG EC capsule escitalopram (LEXAPRO) 20 MG tablet Folic Acid-Vit B6-Vit B12 (FOLTABS 800 PO) furosemide (LASIX) 20 MG tablet GABAPENTIN PO HYDROcodone-acetaminophen (NORCO) 7.5-325 MG per tablet lisinopril (PRINIVIL,ZESTRIL) 30 MG tablet MAGNESIUM OXIDE PO ROPINIROLE HCL PO simvastatin (ZOCOR) 20 MG tablet Past Medical History: Hypertension Atrial fibrillation Neuropathy TIA Cerebral artery occlusion with cerebral infarction Seizure Hyperlipidemia Headache around the eyes Past Surgical History: GI surgery Resection, abdominal perineal Family History: The patient's family history includes C.A.D. in his father; Cancer in his mother; Diabetes in his sister. Social History: The patient reports that he has never smoked. He has never used smokeless tobacco. He reports current alcohol use of about 0.8 standard drinks of alcohol per week. He reports that he does not use drugs. PCP: Freedom Monge Marital Status: Review of Systems Constitutional: Negative for fever. HENT: Negative for congestion, rhinorrhea and sore throat. Eyes: Negative for visual disturbance. Respiratory: Negative for cough and shortness of breath. Cardiovascular: Negative for chest pain. Gastrointestinal: Negative for abdominal pain, nausea and vomiting. Musculoskeletal: Negative for neck pain. Neurological: Positive for speech difficulty and headaches. Negative for facial asymmetry, weakness and numbness. Psychiatric/Behavioral: Positive for confusion. All other systems reviewed and are negative. Physical Exam Patient Vitals for the past 24 hrs: BP Temp Temp src Pulse Heart Rate Resp SpO2 Weight 08/17/19 1530 -- -- -- -- 73 18 97 % -- 08/17/19 1433 -- -- -- -- -- -- -- 122.5 kg (270 lb) 08/17/19 1430 (!) 170/81 -- -- 74 77 22 95 % -- 08/17/19 1425 (!) 178/95 98 ??F (36.7 ??C) Oral -- 82 16 97 % -- Physical Exam General: Alert, No obvious discomfort, well kept HEENT: Normal Voice, PERRL, EOM normal, oropharynx is normal, Uvula is midline, Conjunctivae and sclerae are normal, No lymphadenopathy Neck: Normal range of motion, No meningismus. There is no midline cervical spine pain/tenderness. Nomass is detected CV: Regular rate and underlying rhythm, Normal Peripheral pulses. No murmurs, rubs or clicks Resp: Lungs are clear, No tachypnea, Non-labored breathing, No wheezing, crackles, or rales GI: Abdomen is soft, there is no rigidity, No distension, No tympani, No rebound tenderness, Non-surgical without peritoneal features MS: No major joint effusions, No asymmetric leg swelling. No calf tenderness Skin: No rash or acute skin lesions noted, Warm, Dry Neuro: National Institutes of [employer] Stroke Scale Exam Interval: Baseline Score Level of consciousness: (0) Alert, keenly responsive LOC questions: (1) Answers one question correctly LOC commands: (0) Performs both tasks correctly Best gaze: (0) Normal Visual: (0) No visual loss Facial palsy: (1) Minor paralysis (flat nasolabial fold, smile asymmetry) Motor arm (left): (0) No drift Motor arm (right): (0) No drift Motor leg (left): (0) No drift Motor leg (right): (0) No drift Limb ataxia: (0) Absent Sensory: (0) Normal- no sensory loss Best language: (0) Normal- no aphasia Dysarthria: (0) Normal Extinction and inattention: (0) No abnormality Total Score: 2 Psych: Awake. Alert. Normal affect. Appropriate interactions. Good eye contact Emergency Department Course ECG: ECG taken at 1433, ECG read at 1434 Sinus rhythm with occasional premature ventricular complexes. Left axis deviation. Left ventricular hypertrophy with QRS widening. Cannot rule out septal infarct, age undetermined. Abnormal ECG Rate 75 bpm. IL interval 182 ms. QRS duration 116 ms. QT/QTc 412/460 ms. P-R-T axes 39 -43 67. Imaging: Radiology findings were communicated with the patient and family who voiced understanding of the findings. MR Brain w/o & w Contrast Preliminary Result IMPRESSION: 1. No evidence of acute ischemia or hemorrhage. 2. Volume loss, chronic small vessel ischemic change, and multiple old infarcts. Results per radiology. XR Chest Port 1 View Final Result IMPRESSION: No acute disease. Results per radiology. Laboratory: Laboratory findings were communicated with the patient and family who voiced understanding of the findings. CBC: WBC 8.4, HGB 14.9, PLT 220 BMP: Glucose 111 (H) o/w WNL (Creatinine 1.10) 1429 - Troponin: <0.015 UA: Negative Interventions: 1447: Dilaudid 0.5mg IV Emergency Department Course: Past medical records, nursing notes, and vitals reviewed. 1419: I performed an exam of the patient and obtained history, as documented above. IV inserted and blood drawn. The patient was sent for a MRI and xray while in the emergency department, findings above. 1558: I rechecked the patient. Findings and plan explained to the Patient and spouse and daughter. Patient discharged home with instructions regarding supportive care, medications, and reasons to return. The importance of close follow-up was reviewed. Impression & Plan Medical Decision Making: Damon Mccall is a 69 year old male who presents with family for evaluation of mental status change and confusion. Family was concerned about stroke as he has had multiple small strokes in the past. He is anticoagulated with dabigatran. He did seem to have some right sided weakness and mild right facial droop on my initial examination. I did obtain an MRI as the symptoms started more than more than 12hours ago. There is no indication for acute process at this time. His laboratory studies are noncontributory and unremarkable. He has a negative troponin and nonacute EKG. TIA is a consideration. Patient's family states that he had been evaluated for dementia in the past and was cleared. However charlie ntia is a consideration at this time. There is no signs of infection. At this point time there is noindication for further evaluation or treatment. I discussed observational admission with family however they are comfortable monitoring at home with close follow-up with her primary care provider. We di scussed the need to follow-up with neurology. Again he is already anticoagulated and there appears to be no need for medication changes. Family were advised of strict return protocols. They will contact their primary care provider on Monday to schedule follow-up. We also discussed neurologic follow-up. At this point time he appears to be safe and appropriate for outpatient management follow-up and isdischarged home. Diagnosis: ICD-10-CM 1. Change in mental status R41.82 Disposition: Discharged. Scribe Disclosure: I, Nadine Carpenter, am serving as a scribe at 3:21 PM on 08/17/2019 to document services personally performed by Aidan Marshall APRN based on my observations and the provider's statements to me. [facility] EMERGENCY DEPARTMENT Aidan Marshall APRN PREFLIGHT MECHANIC 08/17/19 1635 documented in this encounter Plan of Treatment Not on filedocumented as of this encounter Procedures Procedure Name Priority Date/Time Associated Comments Diagnosis ROUTINE UA WITH STAT 08/17/2019 3:25 PM Result s for this MICROSCOPIC REFLEX TO CDT proced ure are in CULTURE the results section. MR BRAIN W/O & W STAT 08/17/2019 3:16 PM Resul ts for this CONTRAST CDT procedure are i n the results section. XR CHEST PORT 1 VIEW STAT 08/17/2019 3:00 PM R esults for this CDT procedure are i n the results section. EKG 12-LEAD, TRACING STAT 08/17/2019 2:33 PM R esults for this ONLY CDT procedure are i n the results section. TROPONIN I STAT 08/17/2019 2:29 PM Results f or this CDT procedure are i n the results section. BASIC METABOLIC PANEL STAT 08/17/2019 2:29 PM Results for this CDT procedure are i n the results section. CBC WITH PLATELETS STAT 08/17/2019 2:29 PM Res ults for this CDT procedure are i n the results section. documented in this encounter Results UA with Microscopic reflex to Culture (08/17/2019 3:25 PM T) [facility] Method Time Signature Color Urine Light Yellow 08/17/2019 [facility] 3:39 PM [facility] Appearance Urine Clear 08/17/2019 [facility] 3:39 PM [facility] Glucose Urine Negative NEG^Negat 08/17/2019 [facility] ángel mg/dL 3:39 PM [facility] Bilirubin Urine Negative NEG^Negat 08/17/2019 [facility] ángel 3:39 PM [facility] Ketones Urine Negative NEG^Negat 08/17/2019 [facility] ángel mg/dL 3:39 PM [facility] Specific [place] 1.014 1.003 - 08/17/2019 [place] Urine 1.035 3:39 PM [facility] Blood Urine Negative NEG^Negat 08/17/2019 [facility] á[place]el 3:39 PM [facility] pH Urine 5.0 5.0 - 7.0 08/17/2019 [facility] pH 3:39 PM [facility] Protein Albumin Negative NEG^Negat 08/17/2019 [facility] Urine ángel mg/dL 3:39 PM [facility] Urobilinogen Normal 0.0 - 2.0 08/17/2019 [facility] mg/dL mg/dL 3:39 PM [facility] Nitrite Urine Negative NEG^Negat 08/17/2019 [facility] ángel 3:39 PM [facility] Leukocyte Negative NEG^Negat 08/17/2019 [place] Esterase Urine ángel 3:39 PM [facility] Source Midstream 08/17/2019 [facility] Urine 3:25 PM [facility] WBC Urine <1 0 - 5 08/17/2019 [facility] /HPF 3:39 PM [facility] RBC Urine <1 0 - 2 08/17/2019 [facility] /HPF 3:39 PM [facility] Specimen (Source) Anatomical Collection Method Collection Time Re ceived Time Location / / Volume Laterality Examination of 08/17/2019 3:25 08/17/2019 3:32 midstream urine PM T [facility] specimen (procedure) Aidan Marshall APRN PREFLIGHT MECHANIC LAB - URINE ORDERABLES Performing Organization Address City/State/ZIP Code Phon e Number M [facility] [address] [place], [place] [address] [facility] [address] [place], [place] [address] [id number] [phone] MR Brain w/o & w Contrast (08/17/2019 3:16 PM CDT) Anatomical Region Laterality Modality Head, SUBRAD MR NEURO, UMP MR NEURO, RAD MR Magnetic Resonance Specimen (Source) Anatomical Location Collection Method / Collectio n Time Received Time / Laterality Volume Impressions 08/17/2019 3:46 PM CDT IMPRESSION: 1. No evidence of acute ischemia or hemo rrhage. 2. Volume loss, chronic small vessel isc hemic change, and multiple old infarcts. ?? HALEIGH DELACRUZ MD Narrative 08/17/2019 3:46 PM CDT MRI BRAIN WITHOUT AND WITH CONTRAST ??08/17/2019 3:16 PM HISTORY: ??Mild right facial droop and r ight-sided weakness, last known normal before 11pm yesterday. TECHNIQUE: ??Multiplanar, multisequence MRI of the brain without and with 10mL Gadavist. COMPARISON: Head CT 02/28/2016, head MRI . FINDINGS: ??The exam is moderately limit ed due to motion artifact. Mild volume loss is present. Old left basal g anglia/centrum semiovale lacunar infarct is present. Old bilatera l cerebellar infarcts are present. Frontoparietal predominant everett ventricular and subcortical T2 FLAIR hyperintensities likely represent chronic small vessel ischemic change. No evidence of acute ischemia, h emorrhage, mass, mass effect, or hydrocephalus. No abnormal diffusion restriction or enhancement is identified. The visualized calvarium, ty mpanic cavities, mastoid cavities and paranasal sinuses are unrem arkable. Procedure Note Haleigh Delacruz MD - 08/17/2019F ormatting of this note might be different from the original. MRI BRAIN WITHOUT AND WITH CONTRAST 07/24 3:16 PM HISTORY: Mild right facial droop and rig ht-sided weakness, last known normal before 11pm yesterday. TECHNIQUE: Multiplanar, multisequence MR I of the brain without and with 10mL Gadavist. COMPARISON: Head CT 02/28/2016, head MRI . FINDINGS: The exam is moderately limited due to motion artifact. Mild volume loss is present. Old left basal g anglia/centrum semiovale lacunar infarct is present. Old bilatera l cerebellar infarcts are present. Frontoparietal predominant everett ventricular and subcortical T2 FLAIR hyperintensities likely represent chronic small vessel ischemic change. No evidence of acute ischemia, h emorrhage, mass, mass effect, or hydrocephalus. No abnormal diffusion restriction or enhancement is identified. The visualized calvarium, ty mpanic cavities, mastoid cavities and paranasal sinuses are unrem arkable. IMPRESSION: 1. No evidence of acute ischemia or hemo rrhage. 2. Volume loss, chronic small vessel isc hemic change, and multiple old infarcts. HALEIGH DELACRUZ MD Aidan Marshall APRN [facility] MRI ORDERABLES XR Chest Port 1 View (08/17/2019 3:00 PM CDT) Anatomical Region Laterality Modality Chest Digital Radiography Specimen (Source) Anatomical Location Collection Method / Collectio n Time Received Time / Laterality Volume Impressions 08/17/2019 3:29 PM CDT IMPRESSION: No acute disease. BOOGIE BRADEN MD Narrative 08/17/2019 3:29 PM CDT CHEST ONE VIEW UPRIGHT 08/17/2019 3:00 PM HISTORY: Mental status change. COMPARISON: April 02, 2014. Procedure Note Bogoie Braden MD - 08/17/2019Fo rmatting of this note might be different from the original. CHEST ONE VIEW UPRIGHT 08/17/2019 3:00 P M HISTORY: Mental status change. COMPARISON: April 02, 2014. IMPRESSION: No acute disease. BOOGIE BRADEN MD Aidan Marshall APRN [facility] DIAGNOSTIC IMAGING ORDE RABLES EKG 12-lead, tracing only (08/17/2019 2:33 PM CDT) [facility] gist Method Time Signature Interpretation ECG Click View RADIOLOGY Image link RESULTS to view waveform and result Specimen (Source) Anatomical Collection Method Collection Time Re ceived Time Location / / Volume Laterality 08/17/2019 2:33 PM CDT Aidan Marshall APRN [facility] ECG ORDERABLES Performing Organization Address City/State/ZIP Code Phon e Number RADIOLOGY RESULTS (ABNORMAL) Basic metabolic panel (08/17/2019 2:29 PM CDT) P athologist Signature Sodium 139 133 - 144 08/17/2019 [place] mmol/L 2:47 PM [facility] Potassium 3.8 3.4 - 5.3 08/17/2019 [facility]/L 2:47 PM [facility] Chloride 103 94 - 109 08/17/2019 [place] mmol/L 2:47 PM [facility] Carbon Dioxide 29 20 - 32 08/17/2019 [place] mmol/L 2:53 PM [facility] Anion Gap 7 3 - 14 08/17/2019 [place] mmol/L 2:53 PM [facility] Glucose 111 (H) 70 - 99 08/17/2019 [place] mg/dL 2:53 PM [facility] Urea Nitrogen 15 7 - 30 08/17/2019 [place] mg/dL 2:53 PM [facility] Creatinine 1.10 0.66 - 08/17/2019 [place] 1.25 mg/dL 2:53 PM [facility] GFR Estimate 67 >60 08/17/2019 [place] mL/min/{1. 2:53 PM [facility] 73_m2} [facility] Comment: Non GFR Calc Starting 10/09/2018, serum creatinine ba sed estimated GFR (eGFR) will be calculated using the Chronic Kidney Dise [facility] Epidemiology Collaboration (CKD-EPI) equation. GFR Estimate If 78 >60 mL/min/{1.73_m2} 08/17/2019 2: [address] [facility] Comment: GFR Calc Starting 10/09/2018, serum creatinine ba sed estimated GFR (eGFR) will be calculated using the Chronic Kidney Dise [facility] Epidemiology Collaboration (CKD-EPI) equation. Calcium 9.4 8.5 - 10.1 mg/dL 08/17/2019 2:53 PM [facility] Specimen Anatomical Collection Method Collection Time Receive d Time (Source) Location / / Volume Laterality Blood specimen 08/17/2019 2:29 PM 019 2:35 (specimen) CDT PM CDT Aidan Marshall STAFF PHYSICAL THERAPY ASSISTANT PREFLIGHT MECHANIC LAB - BLOOD ORDERABLES Performing Organization Address City/State/ZIP Code Phon e Number [facility] [address] [place] [address] [facility] [address] [place], [place] [address], [facility] [phone] CBC (platelets, no diff) (08/17/2019 2:29 PM CDT) athologist Signature WBC 8.4 4.0 - 11.0 08/17/2019 [facility] 10e9/L 2:38 PM [facility] RBC Count 4.89 4.4 - 5.9 08/17/2019 [facility] 10e12/L 2:38 PM [facility] Hemoglobin 14.9 13.3 - 08/17/2019 [facility] 17.7 g/dL 2:38 PM [facility] Hematocrit 44.7 40.0 - 08/17/2019 [facility] 53.0 % 2:38 PM [facility] MCV 91 78 - 100 08/17/2019 [facility] fl 2:38 PM [facility] MCH 30.5 26.5 - 08/17/2019 [facility] 33.0 pg 2:38 PM [facility] MCHC 33.3 31.5 - 08/17/2019 [facility] 36.5 g/dL 2:38 PM [facility] RDW 12.2 10.0 - 08/17/2019 [facility] 15.0 % 2:38 PM [facility] Platelet Count 220 150 - 450 08/17/2019 [facility] 10e9/L 2:38 PM [facility] Specimen Anatomical Collection Method Collection Time Receive d Time (Source) Location / / Volume Laterality Blood specimen 08/17/2019 2:29 PM 2 019 2:35 (specimen) CDT PM CDT Aidan Marshall STAFF PHYSICAL THERAPY ASSISTANT PREFLIGHT MECHANIC LAB - BLOOD ORDERABLES Performing Organization Address City/State/ZIP Code Phon e Number M [place] [address] [place], [place] [address] [facility] [address] [place], [place] [address], [facility] [phone] Troponin I (08/17/2019 2:29 PM CDT) athologist Signature Troponin I ES <0.015 0.000 - 08/17/2019 [place] 0.045 ug/L 2:57 PM CDT [facility] Comment: The 99th percentile for upper reference range is 0.045 ug/L. ??Troponin values in the range of 0.045 - 0.120 ug/L may b e associated with risks of adverse clinical events. Specimen Anatomical Collection Method Collection Time Receive d Time (Source) Location / / Volume Laterality Blood specimen 08/17/2019 2:29 PM 019 2:35 (specimen) CDT PM CDT Aidan Marshall APRN PREFLIGHT MECHANIC LAB - BLOOD ORDERABLES Performing Organization Address City/State/ZIP Code Phon e Number [place] [address] [place], [place] [address] [facility] [address] [place], [place] [address] [facility] [phone] documented in this encounter Visit Diagnoses Diagnosis Change in mental status Altered mental status documented in this encounter Administered Medications Inactive Administered Medications - up to 3 most recent administrations Medication Order MAR Action Action Date Dose Rate Site gadobutrol (GADAVIST) injection 10 Given 08/17/2019 2:56 PM CDT 10 mLs mL 10 mL, Intravenous, ONCE, On 08/17/19 at 1449, For 1 dose HYDROmorphone (PF) (DILAUDID) injection 0.5 Given 08/17/2019 2:47 PM CDT 0.5 mg mg 0.5 mg, Intravenous, ONCE, On 08/17/19 at 1443, For 1 dose, For ordered IV doses 0.1-4 mg give IV Push undiluted. Administer each 2mg over 2-5 minutes. documented in this encounter Active and Recently Administered Medications Times are shown in CDT. Scheduled Medication Order 08/15/2019 08/16/2019 08/17/2019 gadobutrol (GADAVIST) injection 10 mL (COMPLETED) 1456 (Given - Provider: Adam Thomas) 10 mL, Intravenous, ONCE, 08/17/19 at 1449, For 1 dose HYDROmorphone (PF) (DILAUDID) injection 0.5 mg (COMPLETED) 1447 (Given - Provider: Katharina Barrios RN) 0.5 mg, Intravenous, ONCE, 1 dose, Sat 1 at 1443, For ordered IV doses 0.1-4 mg give IV Push undiluted. Administer each 2mg over 2-5 minutes. documented in this encounter Care Teams Process Mold Technician Relationship Specialty Start Date End Date Freedom Monge MD PCP - General 05/05/16 documented as of this encounter
--- OUTSIDE RECORDS SUMMARY | 2022-07-25 16:05 | XMS_ITS | Encounter Summary ---
:1950 Author Organization [place] Address [address] [address] Care Team Providers Name Role Phone Freedom Monge MD Primary Care Provider [phone] Encounter Details Date Type Department Care Team Description 02/13/2017 Therapy Visit [facility] Nathan Velazquez, Acute bilateral low Rehabilitation Services PT back pain with [facility] OF left-sided sciatica [address] [facility]ICINE (Primary Dx) [place] [address] [facility] [id number] [place], [place] [phone] [id number] Social History Tobacco Use Types Packs/Day Years Used Date Never Smoker Smokeless Tobacco: Never Used Alcohol Use Standard Drinks/Week Comments No 0.8 (1 standard drink = 0.6 oz pure alco hol) Sex Assigned at Date Recorded Not on file documented as of this encounter Progress Notes Nathan Velazquez, PT - 02/13/2017 11:30 AM CDT Subjective: Patient is a 66 year old male presenting with rehab back hpi. Pt reports an insidious onset of LBP 6 months ago (08/15/16). Improved on its own, but has had 2 other episodes since then. The most recent episode began about 4 weeks ago after walking. He is continuing to have intermittent LBP and intermittent left buttock pain with walking and standing. Pain subsides if he sits down. He had an MRI that showed intervertebral disc displacement.. Patient reports pain: Lower lumbar spine. Radiates to: Gluteals left. Pain is described as aching and stabbing and is intermittent and reported as 5/10. Associated symptoms: Loss of motion/stiffness. Pain is the same all the time. Symptoms are exacerbated by walking and standing and relieved by rest (sitting). Since onset symptoms are unchanged. Special tests: MRI. General health as reported by patient is fair. Barriers include: None as reported by the patient. Red flags: None as reported by the patient. Objective: Standing Alignment: Lumbar deviations alignment: No shift. Lumbar/SI Evaluation ROM: AROM Lumbar: Flexion: Slight loss, no pain. RFIS and RFIL painfree Ext: Moderate loss, no pain. ZABRINA painfree, REIL produced LBP Side Bend: Left: Moderate loss with LBP Right: Moderate loss with LBP Rotation: Left: Right: Side [place]: Left: Right: Lumbar Myotomes: normal Lumbar DTR's: not assessed Lumbar Dermtomes: not assessed Neural Tension/Mobility: Lumbar: Normal General ROS Assessment/Plan: Patient is a 66 year old male with lumbar complaints. Patient has the following significant findings with corresponding treatment plan. Diagnosis 1: LBP with lumbar DDD Pain - hot/cold therapy, mechanical traction, education and home program Decreased ROM/flexibility - manual therapy, therapeutic exercise and home program Decreased strength - therapeutic exercise, therapeutic activities and home program Therapy Evaluation Codes: 1) History comprised of: Personal factors that impact the plan of care: None. Comorbidity factors that impact the plan of care are: Overweight and Stroke. Medications impacting care: None. 2) Examination of Body Systems comprised of: Body structures and functions that impact the plan of care: Lumbar spine. Activity limitations that impact the plan of care are: Standing and Walking. 3) Clinical presentation characteristics are: Stable/Uncomplicated. 4) Decision-Making Low complexity using standardized patient assessment instrument and/or measureable assessment of functional outcome. Cumulative Therapy Evaluation is: Low complexity. Previous and current functional limitations: (See Goal Flow Sheet for this information) Short term and pari mutuel ticket cashier goals: (See Goal Flow Sheet for this information) Communication ability: Patient appears to be able to clearly communicate and understand verbal and written communication and follow directions correctly. Treatment Explanation - The following has been discussed with the patient: RX ordered/plan of care Anticipated outcomes Possible risks and side effects This patient would benefit from PT intervention to resume normal activities. Rehab potential is good. Frequency: 1 X week, once daily Duration: for 8 weeks Discharge Plan: Achieve all LTG. Independent in home treatment program. Reach maximal therapeutic benefit. Please refer to the daily flowsheet for treatment today, total treatment time and time spent performing 1:1 timed codes. Hyacinth Davidson - 02/13/2017 11:30 AM CDT Subjective: Patient is a 66 year old male presenting with rehab left ankle/foot hpi. Pertinent medical history includes: Overweight, stroke and other (numbness/tingling). Medical allergies: no. Other surgeries include: Orthopedic surgery and heart surgery. Current medications: None asreported by patient. 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 Red flags: Pain at rest/night. Oswestry Score: 43.33 % Objective: System Physical Exam General ROS Assessment/Plan: documented in this encounter Plan of Treatment Not on filedocumented as of this encounter Procedures Procedure Name Priority Date/Time Associated Diagnosis Comme [facility] Z THERAPEUTIC Routine 02/13/2017 1:32 PM Acute bilateral low EXERCISES CDT back pain with left-sided sciatica documented in this encounter Visit Diagnoses Diagnosis Acute bilateral low back pain with left- sided sciatica - Primary documented in this encounter Care Teams Home Health Clinical Liaison Relationship Specialty Start Date End Date Freedom Monge MD PCP - General 05/05/16 documented as of this encounter
--- OUTSIDE RECORDS SUMMARY | 2022-07-25 16:05 | XMS_ITS | Encounter Summary ---
:1950 Author Organization [place] Address [facility] [place] [address] Care Team Providers Name Role Phone Freedom Monge MD Primary Care Provider [phone] Reason for Visit Reason Comments ICD Check Missed Carelink Encounter Details Date Type Department Care Team Description 03/07/2017 Documentation Only [facility] Theodora Qureshi ICD Check (Missed Cardiac Services Carelink) [address] [place] [address] Social History Tobacco Use Types Packs/Day Years Used Date Never Smoker Smokeless Tobacco: Never Used Alcohol Use Standard Drinks/Week Comments No 0.8 (1 standard drink = 0.6 oz pure alco hol) Sex Assigned at Date Recorded Not on file documented as of this encounter Progress Notes Theodora Santizo - 06/21/2017 8:19 AM CDT 06/21/17-Patient inactivated heodora Huffman - 06/07/2017 11:09 AM CDT 06/07/17- sent 3 month letter today Theodora Santizo - 03/07/2017 8:55 AM CDT Patient missed Carelink on 02/23/17. Sent letter 02/24, no response. Sent 1 week letter today documented in this encounter Plan of Treatment Not on filedocumented as of this encounter Visit Diagnoses Not on filedocumented in this encounter Care Teams Consulting Property Manager Relationship Specialty Start Date End Date Freedom Monge MD PCP - General 05/05/16 documented as of this encounter
--- OUTSIDE RECORDS SUMMARY | 2022-07-25 16:05 | XMS_ITS | Encounter Summary ---
:1950 Author Organization [place] Address [address] [place] [id number] Care Team Providers Name Role Phone Freedom Monge MD Primary Care Provider [phone] Encounter Details Date Type Department Care Team Description 03/27/2020 Travel Social History Tobacco Use Types Packs/Day [...] Assigned at Date Recorded Not on file COVID-19 Exposure Response Date Recorded In the last month, have you been in contact with No / Unsure 03/27/2020 5:49 PM CDT someone who was confirmed or suspected to have Coronavirus / COVID-19? documented as of this encounter Plan of Treatment Not on filedocumented as of this encounter Visit Diagnoses Not on filedocumented in this encounter Care Teams Filling Machine Set Up Mechanic Relationship Specialty Start Date End Date Freedom Monge MD PCP - General 05/05/16 documented as of this encounter
--- OUTSIDE RECORDS SUMMARY | 2022-07-25 16:05 | XMS_ITS | Encounter Summary ---
:1950 Author Organization [place] Address [facility] [place] [address] Care Team Providers Name Role Phone Freedom Monge MD Primary Care Provider [phone] Reason for Visit Reason Comments Leg Injury Encounter Details Date Type Department Care Team Description 03/27/2020 Emergency [facility] Adal Johnson MD Laceration of right [place] [facility] lower extremity, [address] initial encounter [place], [place] [address] [facility] [address] [place] [address] [place] [address] (Wo rk) Social History Tobacco Use Types [...] / COVID-19? documented as of this encounter Last Filed [...] Mass Index 37.6 03/27/2020 5:59 PM CDT documented in this encounter Discharge Instructions Discharge InstructionsEleno Johnson MD - 03/27/2020 9:45 PM CDT Discharge Instructions Laceration (Cut) You were seen today for a laceration (cut). Your provider examined your laceration for any problems such a buried foreign body (like glass, a splinter, or gravel), or injury to blood vessels, tendons, and nerves. Your provider may have also rinsed and/or scrubbed your laceration to help prevent an infection. It may not be possible to find all problems with your laceration on the first visit; occasionally foreign bodies or a tendon injury can go undetected. Your laceration may have been closed in one of several ways: No closure: many wounds will heal just fine without closure. Stitches: regular stitches that require removal. [place]: skin thelma are often used in the scalp/head. Wound adhesive (glue): skin glue can be used for certain lacerations and doesn???t require removal. Wound strips (aka Butterfly bandages or steri-strips): these are bandages that help to close a wound. Absorbable stitches: ???dissolving?? stitches that go away on their own and usually don???t requireremoval. A small percentage of wounds will develop an infection regardless of how well the wound is cared for. Antibiotics are generally not indicated to prevent an infection so are only given for a small number of high-risk wounds. Some lacerations are too high risk to close, and are left open to heal becauseclosure can increase the likelihood that an infection will develop. Remember that all lacerations, no matter how expertly repaired, will cause scarring. We consider many factors, techniques, and materials, in our efforts to provide the best possible cosmetic outcome. Generally, every Emergency Department visit should have a follow-up clinic visit with either a primary or a specialty clinic/provider. Please follow-up as instructed by your emergency provider today. Return to the Emergency Department right away if: You have more redness, swelling, pain, drainage (pus), a bad smell, or red streaking from your laceration as these symptoms could indicate an infection. You have a fever of 100.4??F or more. You have bleeding that you cannot stop at home. If your cut starts to bleed, hold pressure on the bleeding area with a clean cloth or put pressure over the bandage. If the bleeding does not stop after using constant pressure for 30 minutes, you should return to the Emergency Department for further treatment. An area past the laceration is cool, pale, or blue compared with the other side, or has a slower return of color when squeezed. Your dressing seems too tight or starts to get uncomfortable or painful. For children, signs of a problem might be irritability or restlessness. You have loss of normal function or use of an area, such as being unable to straighten or bend a finger normally. You have a numb area past the laceration. Return to the Emergency Department or see your regular provider if: The laceration starts to come open. You have something coming out of the cut or a feeling that there is something in the laceration. Your wound will not heal, or keeps breaking open. There can always be glass, wood, dirt or other things in any wound. They will not always show up, even on x-rays. If a wound does not heal, this may bewhy, and it is important to follow- up with your regular provider. Home Care: Take your dressing off in 12-24 hours, or as instructed by your provider, to check your laceration. Remove the dressing sooner if it seems too tight or painful, or if it is getting numb, tingly, or pale past the dressing. Gently wash your laceration 1-2 times daily with clean water and mild soap. It is okay to shower or run clean water over the laceration, but do not let the laceration soak in water (no swimming). If your laceration was closed with wound adhesive or strips: pat it dry and leave it open to the air. For all other repairs: after you wash your laceration, or at least 2 times a day, apply antibiotic ointment (such as Neosporin?? or Bacitracin??) to the laceration, then cover it with a Band-Aid?? or gauze. Keep the laceration clean. Wear gloves or other protective clothing if you are around dirt. Follow-up for removal: If your wound was closed with thelma or regular stitches, they need to be removed according to the instructions and timeline specified by your provider today. If your wound was closed with absorbable (???dissolving?? ) sutures, they should fall out, dissolve,or not be visible in about one week. If they are still visible, then they should be removed according to the instructions and timeline specified by your provider today. Scars: To help minimize scarring: Wear sunscreen over the healed laceration when out in the sun. Massage the area regularly once healed. You may apply Vitamin E to the healed wound. Wait. Scars improve in appearance over months and years. If you were given a prescription for medicine here today, be sure to read all of the information (including the package insert) that comes with your prescription. This will include important information about the medicine, its side effects, and any warnings that you need to know about. The pharmacist who fills the prescription can provide more information and answer questions you may have about the medicine. If you have questions or concerns that the pharmacist cannot address, please call or return to the Emergency Department. Remember that you can always come back to the Emergency Department if you are not able to see your regular provider in the amount of time listed above, if you get any new symptoms, or if there is anything that worries you. documented in this encounter Medications at Time of [...] documented as of this encounter ED Notes Fracisco Kiran RN - 03/27/2020 5:57 PM CDT Tripped and fell onto plywood at 1700 causing several lacerations to L mcgregor. A&O x 4 with VSS onRA. Pt is anticoagulated. Eleno Johnson MD - 03/27/2020 5:49 PM CDT History Chief Complaint: Leg Injury The history is provided by the patient. Damon Mccall is a 69 year old male, with history of seizures, stroke, AFIB amongst others as noted below, currently anticoagulated on Pradaxa, who presents alone for evaluation of several lacerations sustained to the left lower mcgregor after a mechanical fall at 1700. Patient reports he tripped and fell onto a plywood fence, sustaining several lacerations. He states he as able to control bleeding. Here,patient has been able to bear weight/ambulate and denies any dizziness, lightheadedness or other injury. Last tetanus 2018. Allergies: No Known Drug Allergies Medications: Norvasc Aspirin 81 mg Pradaxa Cymbalta Lexapro Lasix Gabapentin Lisinopril Zocor Past Medical History: Hypertension Neuropathy TIA Cerebral artery occlusion Seizure AFIB Stroke Hyperlipidemia Past Surgical History: Colonoscopy x2 GI surgery Resection abdominal perineal Family History: Mother - Cancer Father - CAD Sister - diabetes Social History: The patient was unaccompanied to the ED. Smoking Status: Never Smokeless Tobacco: Never Alcohol Use: Yes Drug Use: No Marital Status: [2] Review of Systems Skin: Positive for wound. Neurological: Negative for dizziness and light-headedness. All other systems reviewed and are negative. Physical Exam Patient Vitals for the past 24 hrs: BP Temp Temp src Pulse Heart Rate Resp SpO2 Height Weight 03/27/201927 -- -- -- -- -- -- 99 % -- -- 03/27/201926 -- -- -- -- -- -- 99 % -- -- 03/27/201925 -- -- -- -- -- -- 99 % -- -- 03/27/201924 -- -- -- -- -- -- 99 % -- -- 03/27/201923 -- -- -- -- -- -- 98 % -- -- 03/27/201918 -- -- -- -- -- -- 97 % -- -- 03/27/201917 (!) 174/91 -- -- 69 -- -- 100 % -- -- 03/27/201909 -- -- -- -- -- -- 99 % -- -- 03/27/201905 (!) -- -- 79 -- -- -- -- -- 03/27/201904 (!) 178 -- -- 79 -- -- 92 % -- -- 03/27/201801 (!) 161/85 -- -- -- -- -- -- -- -- 03/27/20 1759 -- 98.1 ??F (36.7 ??C) Oral 78 78 17 96 % 1.854 m (6' 1) 129.3 kg (285 lb) Physical Exam VS: Reviewed per above HENT: Mucous membranes moist EYES: sclera anicteric CV: Rate as noted, regular rhythm. RESP: Effort normal. Breath sounds are normal bilaterally. GI: no tenderness/rebound/guarding, not distended. NEURO: Alert, moving all extremities but some limitation with left foot dorsiflexion, sensation leftfoot baseline MSK: No deformity of the extremities SKIN: Warm and dry, 6cm laceration to left mcgregor penetrating beneath the skin, possibly through anterior tibialis musculotendinous tissue Emergency Department Course Imaging: Radiology findings were communicated with the patient who voiced understanding of the findings. XR Tibia and Fibula Left: IMPRESSION: There is extensive soft tissue swelling with evidence of a laceration along the distal aspect of the lower extremity. Scattered areas of curvilinear dystrophic soft tissue calcification, chronic in appearance. Atherosclerotic vascular calcifications. No radiopaque foreign body or acute fracture. Reading per radiology. Procedures Narrative: Procedure: Laceration Repair LACERATION: A simple clean 6 cm laceration. LOCATION: Left Mcgregor FUNCTION: Decreased strength with ankle dorsiflexion on the left. ANESTHESIA: 1% Lidocaine w Epi 5 mL PREPARATION: Irrigation with Normal Saline and Shur Clens DEBRIDEMENT: no debridement CLOSURE: Wound was closed with One Layer. Skin closed with 7 x 3.0 Nylon using interrupted sutures. Interventions: 2115 Tylenol 650 mg PO Emergency Department Course: Past medical records, nursing notes, and vitals reviewed. (1919) I performed an exam of the patient as documented above. History obtained from patient. The patient was sent for a XR Tibia and Fibula Left while in the emergency department, results above. (2131) Placed anesthesia, as noted above in laceration repair note in procedures. Performed the above laceration repair. Discussed results, plan of care and patient will be discharged. Findings and plan explained to the Patient. Patient discharged home with instructions regarding supportive care, medications, and reasons to return. The importance of close follow-up was reviewed. I personally reviewed the imaging results with the Patient and answered all related questions prior to discharge. Impression & Plan Medical Decision Making: Patient presents to the ER for evaluation of left anterior mcgregor laceration. On arrival there was no significant vital sign derangement. Exam with evidence of laceration to the left anterior mcgregor as well as limitation with attempted left foot dorsiflexion. XR without foreign body or fracture. Wound wasirrigated copiously and repaired according to the procedure note above. Discussed small but unlikelyrisk of retained foreign body and wound infection. Encouraged suture removal in 10 to 14 days. If ongoing concern about limitations with left foot dorsiflexion, would recommend orthopedic follow-up in the event that he did sustain a significant musculotendinous laceration. Close return precautions were discussed prior to discharge. No symptomology or history to suggest significant blood loss. Diagnosis: ICD-10-CM 1. Laceration of right lower extremity, initial encounter S81.811A Disposition: Discharged to home. Scribe Disclosure: I, Rita Trevino, am serving as a scribe at 7:18 PM on 03/27/2020 to document services personally performed by Eleno Johnson MD based on my observations and the provider's statements to me. 03/27/2020 [facility] EMERGENCY DEPARTMENT Eleno Johnson MD 03/28/20 0009 documented in this encounter Plan of Treatment Not on filedocumented as of this encounter Procedures Procedure Name Priority Date/Time Associated Diagnosis Comme nts XR TIBIA AND FIBULA STAT 03/27/2020 7:42 PM Re sults for this LEFT 2 VIEWS CDT procedure are i n the results section. documented in this encounter Results XR Tibia & Fibula Left 2 Views (03/27/2020 7:42 PM CDT) Anatomical Region Laterality Modality Leg, Knee, Ankle Left Digital Radiography Specimen (Source) Anatomical Collection Method Collection Time Re ceived Time Location / / Volume Laterality 03/27/2020 7:30 PM CDT Impressions 03/27/2020 8:24 PM CDT IMPRESSION: There is extensive soft tissue swelling with evidence of a laceration along the distal aspect of the lower extremity. Scattered areas of curvilinear dystrophic soft tissue calcification, chr onic in appearance. Atherosclerotic vasc ular calcifications. No radiopaque foreign leo dy or acute fracture. Narrative 03/27/2020 8:24 PM CDT EXAM: XR TIBIA and FIBULA LT 2 VW LOCATION: [facility] DATE/TIME: 03/27/2020 7:30 PM INDICATION: Laceration of the mcgregor. COMPARISON: None. Procedure Note Bhargav Mercer MD - 03/27/2020 EXAM: XR TIBIA and FIBULA LT 2 VW LOCATION: [facility] DATE/TIME: 03/27/2020 7:30 PM INDICATION: Laceration of the mcgregor. COMPARISON: None. IMPRESSION: There is extensive soft tiss ue swelling with evidence of a laceration along the distal aspect of the lower extremity. Scattered areas of curvilinear dystrophic soft tissue calcification, chronic in appearance. Atherosclerotic vascular calcifications. No radiopaque foreign leo dy or acute fracture. Eleno Johnson MD IMG DIAGNOSTIC IMAGING ORDER BRICE documented in this encounter Visit Diagnoses Diagnosis Laceration of right lower extremity, ini tial encounter documented in this encounter Administered Medications Inactive Administered Medications - up to 3 most recent administrations Medication Order MAR Action Action Date Dose Rate Site acetaminophen (TYLENOL) tablet 650 Given 03/27/2020 9:16 PM CDT 650 mg mg 650 mg, Oral, ONCE, On Mon03/27/20 at 2100, For 1 dose, Maximum acetaminophen dose from all sources = 75 mg/kg/day not to exceed 4 grams/day. documented in this encounter Active and Recently Administered Medications Times are shown in CDT. Scheduled Medication Order 03/25/2020 03/26/2020 03/27/2020 acetaminophen (TYLENOL) tablet 650 mg (COMPLETED) 2115 (Given - Provider: Alva Hays RN) 650 mg, Oral, ONCE, Mon03/27/20 at 2100, For 1 dose, Maximum acetaminophen dose from all sources = 75 mg/kg/day not to exceed 4 grams/day. documented in this encounter Care Teams Asset Protection Agent Relationship Specialty Start Date End Date Freedom Monge MD PCP - General 05/05/16 documented as of this encounter
--- OUTSIDE RECORDS SUMMARY | 2022-07-25 16:05 | XMS_ITS | Encounter Summary ---
:1950 Author Organization [place] Address [address] [facility] [place] [address] Care Team Providers Name Role Phone Freedom Monge MD Primary Care Provider [phone] Encounter Details Date Type Department Care Team Description 02/21/2017 Therapy Visit [facility] Johana Velazquez, Acute bilateral low Rehabilitation Services PT back pain with [facility] OF left-sided sciatica [address] [facility] [place] [address] [facility] [id number] [place], [place] [phone] [address] Social History Tobacco Use Types Packs/Day Years Used Date Never Smoker Smokeless Tobacco: Never Used Alcohol Use Standard Drinks/Week Comments No 0.8 (1 standard drink = 0.6 oz pure alco hol) Sex Assigned at Date Recorded Not on file documented as of this encounter Progress Notes Johana Velazquez, PT - 02/21/2017 8:50 AM CDT Subjective: HPI Objective: System Physical Exam General ROS Assessment/Plan: DISCHARGE REPORT Progress reporting period is from 02/13/17 to 02/21/17 (2 visits). SUBJECTIVE Subjective changes noted by patient: Damon did not attend further PT following his last visit on 02/21/17. His status at that time was as follows: Subjective: Lost exercise sheets and has not done all ofthe exercises as he forgot some of them. Has had continued intermittent LBP and left hip pain with standing and walking. Overall, no better. Current pain level is NA . Previous pain level was NA . Changes in function: Unknown. Adverse reaction to treatment or activity: None OBJECTIVE Changes noted in objective findings: Patient has failed to return to therapy so current objective findings are unknown. and The objective findings below are from DOS 02/21/17. Objective: No pain with movement in standing. Trial of mech tx . ASSESSMENT/PLAN Updated problem list and treatment plan: Diagnosis 1: LBP STG/LTGs have been met or progress has been made towards goals: Unknown. Assessment of Progress: The patient has not returned to therapy. Current status is unknown. Self Management Plans: Patient has been instructed in a home treatment program. Damon continues to require the following intervention to meet STG and LTG's: PT intervention is no longer required to meet STG/LTG. Recommendations: Discharge from PT. Please refer to the daily flowsheet for treatment today, total treatment time and time spent performing 1:1 timed codes. documented in this encounter Miscellaneous Notes Addendum Note - Johana Velazquez PT - 04/19/2017 5:06 PM CDT Addended by: JOHANA VELAZQUEZ on: 04/19/2017 05:06 PM Modules accepted: Orders documented in this encounter Plan of Treatment Not on filedocumented as of this encounter Procedures Procedure Name Priority Date/Time Associated Diagnosis Comme nts [facility] THERAPEUTIC Routine 02/21/2017 9:26 AM Acute bilateral low EXERCISES CDT back pain with left-sided sciatica [facility] MECHANICAL TRACTION Routine 02/21/2017 9:26 AM Acute bilat eral low THERAPY CDT back pain with left-sided sciatica documented in this encounter Visit Diagnoses Diagnosis Acute bilateral low back pain with left- sided sciatica documented in this encounter Care Teams Plasterer Helper Relationship Specialty Start Date End Date Freedom Monge MD PCP - General 05/05/16 documented as of this encounter
--- OUTSIDE RECORDS SUMMARY | 2022-07-25 16:05 | XMS_ITS | Encounter Summary ---
:1950 Author Organization [place] Address [facility] [place] [address] Care Team Providers Name Role Phone Freedom Monge MD Primary Care Provider [phone] Reason for Visit Reason Comments ICD Check Missed Carelink Encounter Details Date Type Department Care Team Description 08/25/2016 Documentation Only [facility] Theodora Qureshi Check (Missed [facility] [place] Carelink) [address] [facility] [address] [place] [address] Social History Tobacco Use Types Packs/Day Years Used Date Never Smoker Smokeless Tobacco: Never Used Alcohol Use Standard Drinks/Week Comments No 0.8 (1 standard drink = 0.6 oz pure alco hol) Sex Assigned at Date Recorded Not on file documented as of this encounter Progress Notes Theodora Santizo - 12/12/2016 3:52 PM CST 12/12/16- pt inactivated HT PHYSICIAN Theodora Santizo - 11/24/2016 9:53 AM CST 11/24/16- sent 3 month letter HT PHYSICIAN Theodora Santizo - 08/25/2016 1:38 PM CDT Patient missed Carelink transmission on 08/18/16. Sent letter 08/19, no response. Sent 1 week lettertoday documented in this encounter Plan of Treatment Not on filedocumented as of this encounter Visit Diagnoses Not on filedocumented in this encounter Care Teams Food And Beverage Controller Relationship Specialty Start Date End Date Freedom Monge MD PCP - General 05/05/16 documented as of this encounter
[2022-07-25 16:06] LABS: Lactate* 1.1 mmol/L (0.5-1.9)
--- OUTSIDE RECORDS SUMMARY | 2022-07-25 16:06 | XMS_ITS | Encounter Summary ---
:1950 Author Organization [place] Address [address] [facility] [place] [address] Care Team Providers Name Role Phone Abbe Charles MD Primary Care Provider Reason for Visit Reason Onset Date Comments Clinic Care Coordination - Follow-up 04/27/2015 Encounter Details Date Type Department Care Team Description 04/27/2015 Telephone [facility] Raquel Gamino [facility] C are Coordination [facility] Daphnie Bravo RN, RN - Follow-up [address] [facility] [address] [address] [place] [address] [address] [facility] [phone] [place] [address] Social History Tobacco Use Types Packs/Day Years Used Date Never Smoker Smokeless Tobacco: Never Used Alcohol Use Standard Drinks/Week Comments Yes 0.8 (1 standard drink = 0.6 oz pure alco hol) Sex Assigned at Date Recorded Not on file documented as of this encounter Miscellaneous Notes Telephone Encounter - Raquel Gamino, RN, RN - 04/27/2015 10:52 AM CDT Called pt and instructed him to send a full transmission from his [employer] monitor. Due to a new tachy episode since 03/27/15 noted on summary report. He agreed. documented in this encounter Plan of Treatment Not on filedocumented as of this encounter Visit Diagnoses Not on filedocumented in this encounter Care Teams Apartment Maintenance Manager Relationship Specialty Start Date End Date Abbe Charles MD PCP - General Family Practice 07/17/14 02/27/[address] [address] documented as of this encounter
--- OUTSIDE RECORDS SUMMARY | 2022-07-25 16:06 | XMS_ITS | Encounter Summary ---
:1950 Author Organization [place] Address [address] [place] [address] Care Team Providers Name Role Phone Bill Thao MD Primary Care Provider Radha Montoya RN Unavailable Reason for Visit Reason Comments Anticoagulation Encounter Details Date Type Department Care Team Description 07/11/2014 Allied Health/Nurse [facility] Clinic Anticoagulation Visit [address] [address] Social History Tobacco Use Types Packs/Day Years Used Date Never Smoker Smokeless Tobacco: Never Used Alcohol Use Standard Drinks/Week Comments Yes 0.8 (1 standard drink = 0.6 oz pure alco hol) Sex Assigned at Date Recorded Not on file documented as of this encounter Progress Notes Sindy Smith RN - 07/11/2014 8:44 AM CDT ANTICOAGULATION FOLLOW-UP CLINIC VISIT Patient Name: Damon Mccall Date: 07/11/2014 Contact Type: Face to Face SUBJECTIVE: Bleeding Signs/Symptoms: None Thromboembolic Signs/Symptoms: None Medication Changes: TID antibiotic rx'd 07/02, but pt only took 4-5 doses (doesn't remember the name) Dietary Changes: Fewer greens over past 2 weeks Bacterial/Viral Infection: No Missed Coumadin Doses: None Other Concerns: Dental extraction 07/03/14, sporadic antibiotic, 3000mg Tylenol/day d/t shoulder pain, fewer greens all could be reasons for INR of 3.5. Adjusted today's dose x1 only, will resume [facility]. ASSESSMENT/PLAN: See: ANTICOAGULATION [facility] flow sheet. [facility] ANTICOAGULATION CLINIC documented in this encounter Plan of Treatment Not on filedocumented as of this encounter Procedures Procedure Name Priority Date/Time Associated Diagnosis Comme nts INR POINT OF CARE Routine 07/11/2014 termite helper current use o f Results for this anticoagulant therapy proced ure are in the results section . documented in this encounter Results (ABNORMAL) INR point of care (07/11/2014) P athologist Signature INR Point of 3.5 (A) 0.86 - [facility] 1.14 LAB Specimen (Source) Anatomical Location Collection Method / Collectio n Time Received Time / Laterality Volume 07/11/2014 Bill Thao MD LAB - BLOOD ORDERABLES Performing Organization Address City/State/ZIP Code Phon e Number [facility] documented in this encounter Visit Diagnoses Diagnosis nursing home current use of anticoagulant t herapy - Primary documented in this encounter Care Teams Fire Extinguisher Inspector Relationship Specialty Start Date End Date Bill Thao, PCP - General Family Practice 04/14/14 07/16/14 [address] [place] [address] Radha Montoya, PIO Clinic Lead Warehouse Associate Nurse 04/15/14 10/26/14 documented as of this encounter
--- OUTSIDE RECORDS SUMMARY | 2022-07-25 16:06 | XMS_ITS | Encounter Summary ---
:1950 Author Organization [place] Address [facility] [place] [address] Care Team Providers Name Role Phone Abbe Charles MD Primary Care Provider Encounter Details Date Type Department Care Team Description 12/21/2014 Hospital Encounter [facility] Raciel Bernstein fusion of knee, [facility] MD Tushar left [address] [place], [place] ORTHOPEDICS [address] [phone] [address] [place] [address] Social History Tobacco Use Types Packs/Day Years Used Date Never Smoker Smokeless Tobacco: Never Used Alcohol Use Standard Drinks/Week Comments Yes 0.8 (1 standard drink = 0.6 oz pure alco hol) Sex Assigned at Date Recorded Not on file documented as of this encounter Medications at Time of Discharge Medication Sig Dispensed Refills Start Date End Date amLODIPine (NORVASC) 5 MG Take 1 tablet (5 mg) 90 tablet 2 06/18/2014 tabletIndications: HTN by mouth daily (hypertension) aspirin 81 MG Take 1 tablet (81 30 tablet 0 04/13/2014 tabletIndications: TIA on mg) by mouth daily medication Stop taking aspirin while on SUBQ lovenox injections. When lovenox is stopped start ababy aspirin PO daily blood glucose (ACCU-CHEK Use to test blood 100 strip 2 11/2013 KRISTI) test sugars 1 times daily stripIndications: Syncope for dizziness.. and collapse Brand per patient preference and health care plan. cyanocobalamin [address] 2 tablets 60 tablet 5 05/19/20 14 SUBLIndications: Vitamin (1,000 mcg) under B12 deficiency (non the tongue daily anaemic) lisinopril Take 20 mg by mouth 0 (PRINIVIL,ZESTRIL) 30 MG 2 times daily tablet MAGNESIUM OXIDE PO Take 500 mg by mouth 0 every morning ROPINIROLE HCL PO Take 2 mg by mouth 0 At Bedtime (Takes 4 x 0.5mg tabs for a total of 2mg at bedtime) simvastatin (ZOCOR) 20 MG Take 20 mg by mouth 0 tablet every morning folic acid-vit B6-vit B12 Take 1 tablet by 0 02/28/2016 (FOLGARD) 0.8-10-0.115 MG mouth daily TABS HYDROcodone-acetaminophen Take 1-2 tablets by 20 tablet 0 0 12/19/2014 02/28/2016 (NORCO) 5-325 MG per mouth every 4 hours tabletIndications: Pain as needed for in joint involving lower moderate to severe leg, unspecified pain laterality levETIRAcetam 1000 MG Take 1,500 mg by 60 tablet 3 05/02/20 14 02/28/2016 TABSIndications: Seizure mouth 2 times daily (H) Multiple Vitamin Take 1 tablet by 0 (MULTI-VITAMIN) per mouth daily. tablet Pregabalin (LYRICA PO) Take 75 mg by mouth 0 02/28/2016 At Bedtime Riboflavin (VITAMIN B-2 Take 200 mg by mouth 0 06/22/2018 PO) 2 times daily warfarin (COUMADIN) 2.5 Take 1 tablet (2.5 90 tablet 1 /06/201402/28/2016 MG tabletIndications: TIA mg) by mouth daily on medication As directed by INR Clinic. warfarin (COUMADIN) 5 MG Take 1 tablet (5 mg) 90 tablet 1 1 12/01/2013 02/28/2016 tabletIndications: TIA on by mouth daily As medication directed by INR Clinic. documented as of this encounter Plan of Treatment Not on filedocumented as of this encounter Procedures Procedure Name Priority Date/Time Associated Diagnosis Comme nts URIC ACID Routine 12/21/2014 10:07 AM Effusion of knee, Res ults for this INTEGRITY ENGINEER left procedure are i n the results section . documented in this encounter Results Uric acid (12/21/2014 10:07 AM INTEGRITY ENGINEER) P athologist Signature Uric Acid 6.4 3.5 - 7.2 [facility] mg/dL [facility] Comment: Effective 05/21/2014, the reference range for this assay has changed to reflect new instrumentation/methodology. Specimen Anatomical Collection Method Collection Time Receive d Time (Source) Location / / Volume Laterality Blood specimen 12/21/2014 10:07 5 (specimen) AM INTEGRITY ENGINEER 10:23 AM INTEGRITY ENGINEER Dereck Jaime PA-C LAB - BLOOD ORDERABLES Performing Organization Address City/State/ZIP Code Phon e Number [place] [address] [place] [address] [facility] [address] [place] [phone] documented in this encounter Visit Diagnoses Diagnosis Effusion of knee, left documented in this encounter Care Teams Operations/Dispatch Relationship Specialty Start Date End Date Abbe Charles MD PCP - General Family Practice 07/17/14 02/27/[address] [address] documented as of this encounter
--- OUTSIDE RECORDS SUMMARY | 2022-07-25 16:06 | XMS_ITS | Encounter Summary ---
:1950 Author Organization [place] Address [address] [facility] 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 Bill Thao [facility] [place] [address] [place], [place] [address] [address] [place] [address] Phone: [phone] Fax: [phone] Referral ID Status Reason Start Date Expiration Date Visits Requ ested Visits Authorized [id number] Closed 06/20/2014 12/17/2014 1 1 Reason for Visit Reason Comments RECHECK follow up from last office v isit for gout and stroke Encounter Details Date Type Department Care Team Description 06/20/2014 Office Visit [facility] Bill Jessica on medication (Primary Dx); Clinic TaswellJosué Palomo MD Pain in joint involving lower leg, unspe cified laterality; [address] [facility] [address] Other specified disorders of rotator cuf f syndrome of shoulder [place] [address] [phone] Social History Tobacco Use Types Packs/Day Years Used Date Never Smoker Smokeless Tobacco: Never Used Alcohol Use Standard Drinks/Week Comments No 0 (1 standard drink = 0.6 oz pure alcoho l) Sex Assigned at Date Recorded Not on file documented as of this encounter Last Filed Vital Signs Vital Sign Reading Time Taken Comments Blood Pressure 124/66 06/20/2014 9:18 AM CDT Pulse 70 06/20/2014 9:18 AM CDT Temperature 36.7 ??C (98 ??F) 06/20/2014 9:18 AM CDT Respiratory Rate 16 06/20/2014 9:18 AM CDT Oxygen Saturation - - Inhaled Oxygen Concentration - - Weight 123.8 kg (273 lb) 06/20/2014 9:18 AM CDT Height - - Body Mass Index 36.02 04/21/2014 4:17 PM CDT documented in this encounter Progress Notes Bill Thao MD - 06/20/2014 9:19 AM CDT SUBJECTIVE: Damon Mccall is a 64 year old male who presents to clinic today for the following health issues: Follow up from last office visit for gout and stroke. Still having L shoulder pain and fatigue Problem list and histories reviewed & adjusted, as indicated. Additional history: Past Medical History Diagnosis Date ??? Unspecified cerebral artery occlusion with cerebral infarction ??? Hypertension ??? Neuropathy ??? TIA (transient ischaemic attack) Past Surgical History Procedure Laterality Date ??? Gi surgery ??? Resection abdominal perineal ??? Colonoscopy ??? Colonoscopy 10/17/2012 Procedure: COLONOSCOPY; Colonoscopy; Surgeon: Damon Jaimes MD; Location: GI Family History Problem Relation Age of Onset ??? Cancer Mother ??? C.A.D. Father ??? Diabetes Sister History Substance Use Topics ??? Smoking status: Never Smoker ??? Smokeless tobacco: Never Used ??? Alcohol Use: No REVIEW OF SYSTEMS Generally has been still not feeling well until this episode. No problems with vision, hearing, dental or neck pain.Has potential airborne or ingestion allergy No chest pain, palpitations, dyspnea, change in bowel habits, blood in stool or dyspepsia. No rashes, changing moles, weakness, lassitude or back problems. No chronic issues . No dysuria Patient never a smoker. No problems with significant headaches. On exam the vital signs are stable Weight is stable Eyes show meagan No neck masses or thyromegaly.Ear nose and throat shows normal No bruits, murmers, rubs or extrasounds. No cardiomegaly or chest wall tenderness. Lungs clear, no abdominal masses or organomegaly. No CVA tenderness. Skin eval normal No hernias, good range of motion neck, back and extremities. No abnormal skin lesions. Normal genitalia. Good peripheral pulses. No adenopathy. Normal gait and stance. Neck is supple. 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 He's on anticoagulant Plan: ORTHO ANESTHESIOLOGY RESIDENT REFERRAL documented in this encounter Nursing Notes Jessica Marc CMA - 06/20/2014 9:22 AM CDT Chief Complaint Patient presents with ??? RECHECK follow up from last office visit for gout and stroke Initial BP 124/66 Pulse 70 Temp(Src) 98 ??F (36.7 ??C) (Oral) Resp 16 Wt 273 lb (123.832 kg) BMI 36.03 kg/m2 Estimated body mass index is 36.03 kg/(m^2) as calculated from the following: Height as of 04/21/14: 6' 1 (1.854 m). Weight as of this encounter: 273 lb (123.832 kg). BP completed using cuff size: large Jessica Marc CMA documented in this encounter Plan of Treatment Not on filedocumented as of this encounter Visit Diagnoses Diagnosis TIA on medication - Primary Unspecified transient cerebral ischemia Pain in joint involving lower leg, unspe cified laterality Other specified disorders of rotator cuf f syndrome of shoulder and allied disorders documented in this encounter Care Teams Multiskill Operator Relationship Specialty Start Date End Date Bill Thao, PCP - General Family Practice 04/14/14 07/16/14 [address] [place] [address] Radha Montoya, PIO Clinic Professor Of Voice Nurse 04/15/14 10/26/14 documented as of this encounter
--- OUTSIDE RECORDS SUMMARY | 2022-07-25 16:06 | XMS_ITS | Encounter Summary ---
:1950 Author Organization [place] Address [address] [place] [address]. [place] [address] Care Team Providers Name Role Phone Abbe Charles MD Primary Care Provider Encounter Details Date Type Department Care Team Description 12/20/2014 Orders Only [facility] Dereck Ramirez Effusion of knee, left [address] PA-C (Primary Dx) [place] [address] [facility] [phone] ORTHOPEDICS [address] [place], [place] [address] Social History Tobacco Use Types Packs/Day Years Used Date Never Smoker Smokeless Tobacco: Never Used Alcohol Use Standard Drinks/Week Comments Yes 0.8 (1 standard drink = 0.6 oz pure alco hol) Sex Assigned at Date Recorded Not on file documented as of this encounter Plan of Treatment Not on filedocumented as of this encounter Results Uric acid (12/21/2014 10:07 AM FASHION STYLING INTERN) P athologist Signature Uric Acid 6.4 3.5 - 7.2 [facility] mg/dL [facility] Comment: Effective 05/21/2014, the reference range for this assay has changed to reflect new instrumentation/methodology. Specimen Anatomical Collection Method Collection Time Receive d Time (Source) Location / / Volume Laterality Blood specimen 12/21/2014 10:07 5 (specimen) AM FASHION STYLING INTERN 10:23 AM FASHION STYLING INTERN Dereck Jaime PA-C LAB - BLOOD ORDERABLES Performing Organization Address City/State/ZIP Code Phon e Number M [facility] [address] [place], [place] [address] [facility] [address] [place], [place] [address] documented in this encounter Visit Diagnoses Diagnosis Effusion of knee, left - Primary documented in this encounter Care Teams Vice President Residential Solar Sales Relationship Specialty Start Date End Date Abbe Charles MD PCP - General Family Practice 07/17/14 02/27/[address] [address] documented as of this encounter
--- OUTSIDE RECORDS SUMMARY | 2022-07-25 16:06 | XMS_ITS | Encounter Summary ---
:1950 Author Organization [place] Address [facility] [place] [address] Care Team Providers Name Role Phone Abbe Charles MD Primary Care Provider Encounter Details Date Type Department Care Team Description 01/01/2015 Telephone [facility] Nurse Cynthia Hernandez RN [facility] [address] [place] [address] Social History Tobacco Use Types Packs/Day Years Used Date Never Smoker Smokeless Tobacco: Never Used Alcohol Use Standard Drinks/Week Comments Yes 0.8 (1 standard drink = 0.6 oz pure alco hol) Sex Assigned at Date Recorded Not on file documented as of this encounter Miscellaneous Notes Telephone Encounter - Patrizia Hernandez RN - 01/01/2015 7:44 PM CDT Call Type: Triage Call Presenting Problem: calling My has had muscle cramping , his legs, arms and fingers for the past several days. He's been drinking a lot of water and eating bananas. Denies any other sx at this time. Triaged per Muscle pain/relay care. Gave home care advice and to make appt with PCP. Triage Note: Guideline Title: Muscle Pain Recommended Disposition: See Provider within 2 Weeks Original Inclination: Wanted to speak with a nurse Override Disposition: Intended Action: Follow advice given Physician Contacted: No Localized muscle pain AND joint ache or pain ? YES Profound weakness or inability to stand ? NO Muscle pain associated with flu-like symptoms ? NO Muscle pain following heat exposure ? NO History of collagen or connective tissue disorders AND is having a flare ? NO Impairs ability to perform activities of daily living (ADLs) ? NO Severe breathing problems ? NO Muscle pain associated with neck pain ? NO Following suspected spider bite or scorpion sting ? NO Sudden change in mental status ? NO New onset of generalized muscle pain AND recently stopped or decreased oral steroids (prednisone) ? NO Generalized muscle pain AND headache, fatigue, joint pain or rash ? NO Generalized muscle pain AND recent heavy alcohol or substance abuse ? NO Generalized muscle pain and dark, red, or cola-colored urine ? NO Generalized muscle pain, spasm or weakness AND currently on lipid-lowering medication (such as Crestor, Lipitor, Mevacor, Pravachol, Vytorin, Zetia, Zocor, etc.) ? NO New generalized muscle pain AND possible ingestion of poorly processed meat(s) ? NO Muscle aches/pain associated with back pain ? NO Any other cardiac signs/symptoms for more than 5 minutes, now or within last hour. Pain is NOT associated with taking a deep breath or a productive cough, movement, or touch to a localized area on the chest or upper body. ? NO Over 50 years of age with new muscle pain and stiffness around neck, shoulders and hips and not previously evaluated ? NO One or more occurrences of unexplained pain in shoulders, neck, jaw, in one or both arms, stomach or back lasting more than a few minutes that has not been evaluated by a healthcare provider and has risk factors for cardiovascular disease. ? NO Sudden onset of shortness of breath, chest pain and cough with blood tinged sputum ? NO Symptoms began after a change or starting a new prescription or nonprescription medicine or alternative medicine / therapy within last 4 weeks ? NO High to low (but not zero) risk of exposure to Ebola within the past 21 days ? NO Traveled out of country in past 2 months and new onset of unexplained symptom(s) ? NO Physician Instructions: Care Advice: If provider has previously given recommendations for similar pain, follow same if no relief or if symptoms recur, call provider. CAUTIONS Analgesic/Antipyretic Advice - Acetaminophen: Consider acetaminophen as directed on label or by pharmacist/provider for pain or fever PRECAUTIONS: - Use if there is no history of liver disease, alcoholism, or intake of three or more alcohol drinks per day - Only if approved by provider during or when - During , acetaminophen should not be taken more than 3 consecutive days without telling provider - Do not exceed recommended dose or frequency Total water intake includes drinking water, water in beverages, and water contained in food. Fluids make up about 80% of the body's total hydration need. Individual fluid requirement to maintain hydration vary based on physical activity, environmental factors and illness. Limit fluids that contain sugar, caffeine, or alcohol. Urine will be very light yellow color when you drink enough fluids. To relieve discomfort and swelling, apply a cloth-covered cold pack to the area for 20 minutes 4 to 8 times a day for the first 24 to 48 hours. After 24 to 48 hours of cold application, use a cloth-covered heat pack to the area for 20 minutes 3 to 4 times a day. documented in this encounter Plan of Treatment Not on filedocumented as of this encounter Visit Diagnoses Not on filedocumented in this encounter Care Teams Parts Back Counter Man Relationship Specialty Start Date End Date Abbe Charles MD PCP - General Family Practice 07/17/14 02/27/[address] [phone] documented as of this encounter
--- OUTSIDE RECORDS SUMMARY | 2022-07-25 16:06 | XMS_ITS | Encounter Summary ---
:1950 Author Organization [place] Address [address] [place] [address]. [place] [address] Care Team Providers Name Role Phone Abbe Charles MD Primary Care Provider Reason for Visit Reason Comments Leg Pain Encounter Details Date Type Department Care Team Description 12/19/2014 Emergency [facility] Gilda Solis er's cyst of knee, left; [facility] Emergency Dep t MD Adarsh Pain in joint involving lower leg, unspe cified laterality [address] [facility] [place] [address] [address] [employer] [phone] [place] [address] (Wo rk) Social History Tobacco Use Types Packs/Day Years Used Date Never Smoker Smokeless Tobacco: Never Used Alcohol Use Standard Drinks/Week Comments Yes 0.8 (1 standard drink = 0.6 oz pure alco hol) Sex Assigned at Date Recorded Not on file documented as of this encounter Last Filed Vital Signs Vital Sign Reading Time Taken Comments Blood Pressure 168/90 12/19/2014 10:49 PM OIL DISPATCHER Pulse 74 12/19/2014 10:49 PM OIL DISPATCHER Temperature 36.2 ??C (97.2 ??F) 12/19/2014 7:52 PM OIL DISPATCHER Respiratory Rate 18 12/19/2014 10:49 PM OIL DISPATCHER Oxygen Saturation 100% 12/19/2014 10:49 PM OIL DISPATCHER Inhaled Oxygen Concentration - - Weight - - Height - - Body Mass Index - - documented in this encounter Discharge Instructions Discharge InstructionsGilda Solis Renee Altamirano, MD - 12/19/2014 10:41 PM CST Images from the original note were not included. Hood???S Cyst The knee joint is surrounded by a capsule filled with lubricating fluid called synovial fluid. This capsule connects to a small pouch behind the knee, called a bursa. Irritation inside the joint from arthritis or a torn cartilage causes excess synovial fluid to form. This builds pressure inside the joint and the extra fluid flows into the bursa behind the knee.?? This creates a bulge in the back of your knee. This bulge is called a Hood???s cyst. A small Hood???s cyst usually causes no symptoms. A larger cyst can cause knee pain or a feeling ofpressure behind the knee when you try to fully straighten or bend that joint. A Hood???s cyst can leak, causing the fluid to move between the tissues of the lower leg. This results in swelling, pain and redness. Treatment of a Hood???s cyst involves removal of the excess fluid and injection of a cortisone-typemedicine. If excess fluid is a result of a torn cartilage, an operation to repair the cartilage may be the best treatment option. If arthritis is the cause of the excess fluid, and it does not respond to medical treatment, the cyst can be surgically removed. Home Care 1. If you are having knee pain, stay off the affected leg as much as possible until symptoms improve. 2. Make an ice pack (ice cubes in a plastic bag, wrapped in a towel) and apply to the painful area for 20 minutes every 1-2 hours the first day. You may continue to use ice packs 3-4 times a day for the next few days. 3. You may use acetaminophen (Tylenol) or ibuprofen (Motrin, Advil) to control pain, unless another medicine was prescribed. [NOTE: If you have chronic liver or kidney disease or ever had a stomach ulcer or GI bleeding, talk with your doctor before using these medicines.]? 4. If crutches or a walker have been recommended, do not bear full weight on the injured leg until you can do so without pain. Check with your doctor before returning to sports or full work duties. 5. If you were given a Velcro knee brace, you may open the brace to apply ice. Unless told otherwise, you may remove the brace to bathe and sleep. Follow Up with your doctor within 1-2 weeks or as advised by our staff. [NOTE: If x-rays were taken, they will be reviewed by a radiologist. You will be notified of any newfindings that may affect your care.] Return Promptly or contact your doctor if any of the following occur: ?? Toes or foot becomes swollen, cold, blue, numb or tingly ?? Pain or swelling increases ?? Warmth or redness appears over the knee ?? Redness, swelling or pain in the calf or lower leg ?? [phone] [employer]. [address] [place] [address], [place] [address]. All rights reserved. This information is not intended as a substitute for professional medical care. Always follow your healthcare professional's instructions. DISPATCHER documented in this encounter Medications at Time [...] Take 1 tablet (2.5 90 tablet 1 06/201402/28/2016 MG tabletIndications: TIA mg) by mouth daily on medication As directed by INR Clinic. warfarin (COUMADIN) 5 MG Take 1 tablet (5 mg) 90 tablet 1 1 12/01/2013 02/28/2016 tabletIndications: TIA on by mouth daily As medication directed by INR Clinic. documented as of this encounter ED Notes Gilda Solis MD - 12/19/2014 8:48 PM CST History Chief Complaint: Leg Pain HPI Damon Mccall is a 64 year old male with a history of HTN, CVA, and seizure who presents with leg pain. The patient reports suffering a stroke in February of 2014 and ever since my stroke I have had leg andfeet problems. He has chronic bilateral lower extremity burning pain due to neuropathy. He takes lyricaa for this on a scheduled basis and occasional PRN vicodin. He has noted gradual increase in bilateral lower extremity edema over the past several weeks. The principle reason for his visit today is increased pain and swelling behind the left knee. It is painful to stand on the area and to walk. He has noted mild discomfort in this area for the past two months. No trauma. No anterior knee pain or pain at the joint line. Today the patient reports his pain acutely worsened and is accompanied by swelling. He took Tylenol at 5:30 PM with no relief. The patient also states he noticed a rash on his bilateral legs yesterday. He denies a history of blood clots or recent travel. The patient voices no other complaints at this time. Allergies: NKDA Medications: Coumadin Amlodipine Levetiracetam Aspirin Lyrica Magnesium oxide Ropinirole Lisinopril Simvastatin Past Medical History: Hyperlipidemia Seizure CVA HTN Neuropathy TIA Irregular heart beat Past Surgical History: GI surgery Resection abdominal perineal Colonoscopy Family History: Mother - cancer Father - CAD Sister - DM Social History: Marital status: Tobacco use: negative Alcohol use: positive - 1 drink/week Patient presents to the ED with . Review of Systems Musculoskeletal: Positive for leg pain. Skin: Positive for rash. All other systems reviewed and are negative. Physical Exam First Vitals: BP: 182/84 mmHg Pulse: 75 Temp: 97.2 ??F (36.2 ??C) Resp: 20 SpO2: 99 % Physical Exam Gen: alert, well appearing. HEENT: PERRL, oropharynx clear Neck: supple CV: RRR, no murmurs Pulm: breath sounds equal, lungs clear Abd: Soft, nontender Back: no evidence of injury MSK: no deformity, moves all extremities. Left lower extremity fullness behind the knee. No redness or focal tenderness. Area of fullness is non pulsatile. 2+ DP and PT pulses. 1+ ble edema to the knee Skin: Skin over bilateral extremities is very dry with mild dermatitis. No evidence of cellulitis. Neuro: alert, appropriate conversation and interaction Emergency Department Course Imaging: Left Leg Venous US: IMPRESSION: No DVT demonstrated. BOOGIE BRADEN MD Radiographic findings were communicated with the patient and family who voiced understanding of the findings. Laboratory: CBC: WBC 6.6 (WNL) HGB 14.1 (WNL) PLT 199 (WNL) Rest WNL INR: 2.57 (high) ED Course: The patient was roomed. The patient's medical charts were reviewed and I examined the patient. I personally reviewed the laboratory results with the Patient and spouse and answered all related questions prior to discharge. Findings and plan explained to the Patient and spouse. Patient discharged home with instructions regarding supportive care, medications, and reasons to return. The importance of close follow-up was reviewed. The patient was prescribed Bessemer. Impression & Plan Medical Decision Making: This patient presents to the ED for an area of fullness and swelling behind his left knee. Exam and US are consistent with a Hood's cyst. There is no evidence of infection. He is distally neurovascularly intact. There is no evidence of DVT. Laboratory studies show INR to be therapeutic. The patient was quite concerned about his ability to ambulate on this leg. He was offered a walker or cane, however, he declines this. The patient has an orthopedic follow up appointment on Monday and I discussed with him that he could discuss the option for steroid injection versus further evaluation of his knee to see if there is an intraarticular process driving his Hood's cyst formation. At this time there is no evidence of septic arthritis. The patient does not truly have anterior knee pain and no tenderness over the medial and lateral joint line and therefore I doubt an acute traumatic process to the knee. The patient does take Bessemer occasionally for neuropathic pain. He is out of this. I have given dominique prescription for Bessemer. He will follow up with orthopedics this week. The patient mentions that he has had several months of bilateral lower extremity edema. I discussed with him that this should be addressed with his PCP as it is not an emergent complaint. On brief review of his medication list I see that he is on Amlodipine. I discussed with him that this would probably be discontinued first to see if his leg swelling would improve as this is a common complication ofthe Amlodipine. He does not have chest pain, shortness of breath, or orthopnea that would be suggestive of heart failure as the cause of his symptoms. He will be discharged to home with orthopedics primary care follow up. Diagnosis: 1. Hood's cyst of knee, left (727.51) 2. Pain in joint involving lower leg, unspecified laterality (549.46) Disposition: The patient was discharged to home as above. Robyn Rolon, am serving as a scribe on 12/19/2014 at 8:48 PM to personally document services performed by Dr. Solis based on my observations and the provider's statements to me. Gilda Solis MD 12/20/14 0043 DISPATCHER Ana Dalton RN - 12/19/2014 7:54 PM CST Left leg pain and swelling behind knee x 2 month- worse today. Pain is worse with walking on it. ABCintact alert and no distress/ DISPATCHER documented in this encounter Plan of Treatment Not on filedocumented as of this encounter Procedures Procedure Name Priority Date/Time Associated Comments Diagnosis US LOWER EXTREMITY STAT 12/19/2014 9:48 PM Res ults for this VENOUS DUPLEX LEFT OIL DISPATCHER procedure are in the results section. CBC WITH PLATELETS & STAT 12/19/2014 8:20 PM R esults for this DIFFERENTIAL OIL DISPATCHER procedure are i n the results section. INR STAT 12/19/2014 8:20 PM Results f or this OIL DISPATCHER procedure are i n the results section. documented in this encounter Results Leg, left, venous US (12/19/2014 9:48 PM OIL DISPATCHER) Anatomical Region Laterality Modality Vascular, Thigh, Leg Ultrasound Specimen (Source) Anatomical Location Collection Method / Collectio n Time Received Time / Laterality Volume Impressions 12/19/2014 10:27 PM OIL DISPATCHER IMPRESSION: No DVT demonstrated. BOOGIE BRADEN MD Narrative 12/19/2014 10:27 PM OIL DISPATCHER ULTRASOUND VENOUS LOWER EXTREMITY UNILATERAL LEFT ??12/19/2014 9:48 PM HISTORY: Leg pain and swelling. COMPARISON: None. TECHNIQUE: Ultrasound person scale, Color Doppler flow, and spectral Doppler waveform analysis performed. FINDINGS: The left common femoral, super ficial femoral, popliteal and posterior tibial veins are patent and fu lly compressible and demonstrate normal venous Doppler flow. Small Hood's cyst. Joint effusion also noted. Procedure Note Boogie Braden MD - 12/19/2014Fo rmatting of this note might be different from the original. ULTRASOUND VENOUS LOWER EXTREMITY UNILAT ERAL LEFT 12/19/2014 9:48 PM HISTORY: Leg pain and swelling. COMPARISON: None. TECHNIQUE: Ultrasound person scale, Color Doppler flow, and spectral Doppler waveform analysis performed. FINDINGS: The left common femoral, super ficial femoral, popliteal and posterior tibial veins are patent and fu lly compressible and demonstrate normal venous Doppler flow. Small Hood's cyst. Joint effusion also noted. IMPRESSION IMPRESSION: No DVT demonstrated. BOOGIE BRADEN MD Gilda Solis MD IMG US ORDERABLES (ABNORMAL) INR (12/19/2014 8:20 PM OIL DISPATCHER) P athologist Signature INR 2.57 (H) 0.86 - 1.14 [facility] Specimen Anatomical Collection Method Collection Time Receive d Time (Source) Location / / Volume Laterality Blood specimen 12/19/2014 8:20 PM 015 8:37 (specimen) OIL DISPATCHER PM OIL DISPATCHER Gilda Solis MD LAB - BLOOD ORDERABLES Performing Organization Address City/State/ZIP Code Phon e Number [place] [id number] [address] [facility] [address] [place], [place] [address] CBC + differential (12/19/2014 8:20 PM OIL DISPATCHER) Patholo gist Method Time Signature WBC 6.6 4.0 - [facility] 11.0 [facility] 10e9/L [facility] RBC Count 4.65 4.4 - 5.9 [facility] 10e12/L [facility] Hemoglobin 14.1 13.3 - [facility] 17.7 g/dL [facility] Hematocrit 41.8 40.0 - [facility] 53.0 % [facility] MCV 90 78 - 100 [facility] MCH 30.3 26.5 - [facility] 33.0 pg [facility] MCHC 33.7 31.5 - [facility] 36.5 g/dL [facility] RDW 12.2 10.0 - [facility] 15.0 % [facility] Platelet Count 199 150 - 450 [facility] 10e9/[facility] Diff Method Automated [facility] % Neutrophils 51.7 % [facility] % Lymphocytes 33.3 % [facility] % Monocytes 8.3 % [facility] % Eosinophils 4.7 % [facility] % Basophils 1.5 % [facility] % Immature 0.5 % [facility] Granulocytes [facility] Absolute 3.4 1.6 - 8.3 [facility] Neutrophil 10e9/L [facility] Absolute 2.2 0.8 - 5.3 [facility] Lymphocytes 10e9/L [facility] Absolute 0.6 0.0 - 1.3 [facility] Monocytes 10e9/[facility] Absolute 0.3 0.0 - 0.7 [facility] Eosinophils 10e9/[facility] Absolute 0.1 0.0 - 0.2 [facility] Basophils e9/[facility] Abs Immature 0.0 0 - 0.[address] [facility] Granulocytes [address] [place] [address] Specimen Anatomical Collection Method Collection Time Receive d Time (Source) Location / / Volume Laterality Blood specimen 12/19/2014 8:20 PM 015 8:37 (specimen) OIL DISPATCHER PM OIL DISPATCHER Gilda Solis MD LAB - BLOOD ORDERABLES Performing Organization Address City/State/ZIP Code Phon e Number [place] [phone] [address] [facility] [address] [place], [place] [address] documented in this encounter Visit Diagnoses Diagnosis Hood's cyst of knee, left Pain in joint involving lower leg, unspe cified laterality documented in this encounter Care Teams Director Of Extension Work Relationship Specialty Start Date End Date Abbe Charles MD PCP - General Family Practice 07/17/14 02/27/[address] [phone] documented as of this encounter
--- OUTSIDE RECORDS SUMMARY | 2022-07-25 16:06 | XMS_ITS | Encounter Summary ---
:1950 Author Organization [place] Address [facility] [address] Care Team Providers Name Role Phone Abbe Charles MD Primary Care Provider Reason for Visit Reason Comments Loop Recorder Implant Check Encounter Details Date Type Department Care Team Description 05/11/2015 Office Visit [facility] Heart Enco unter for loop Clinic Daphnie recorder check (Primary [address] [place] [address]) [address] [place] [address] Social History Tobacco Use Types Packs/Day Years Used Date Never Smoker Smokeless Tobacco: Never Used Alcohol Use Standard Drinks/Week Comments Yes 0.8 (1 standard drink = 0.6 oz pure alco hol) Sex Assigned at Date Recorded Not on file documented as of this encounter Progress Notes Raquel Gamino, PIO, RN - 06/22/2015 3:14 PM CDT [employer] Linq remote check was sent due to new episodes noted on summary report. He had 1 stored tachy episode due to a ' noisy signal'. One pause due to poor QRS sensing and 5 AF episodes all due to oversensing of the T wave. It was not afib. Called and informed pt and set up next 3 months transmission. MJBrn documented in this encounter Nursing Notes Raquel Gamino, RN, RN - 05/12/2015 8:21 AM CDT [employer] remote check was sent due to new episodes noted on summary report. He had 1 stored tachy episode due to a ' noisy signal'. One pause due to poor QRS sensing and 5 AF episodes all due to oversensing of the T wave. It was not afib. Called and informed pt and set up next 3 months transmission. documented in this encounter Plan of Treatment Not on filedocumented as of this encounter Procedures Procedure Name Priority Date/Time Associated Diagnosis Comme nts C ICM/SQ CARDIAC Routine 05/12/2015 8:12 AM CDT Encounter for loop RYTHYM MONITOR REMOTE recorder check TECH SERV documented in this encounter Visit Diagnoses Diagnosis Encounter for loop recorder check - Prim tatyana documented in this encounter Care Teams Civil Draftsman Relationship Specialty Start Date End Date Abbe Charles MD PCP - General Family Practice 07/17/14 02/27/[address] [phone] documented as of this encounter
--- OUTSIDE RECORDS SUMMARY | 2022-07-25 16:06 | XMS_ITS | Encounter Summary ---
:1950 Author Organization [place] Address [facility] [address] Care Team Providers Name Role Phone Abbe Charles MD Primary Care Provider Reason for Visit Reason Onset Date Comments Appointment 10/08/2015 cancel Encounter Details Date Type Department Care Team Description 10/08/2015 Telephone [facility] Tri Neri R N Appointment (cancel) Clinic [address] [place] [address] Social History Tobacco Use Types Packs/Day Years Used Date Never Smoker Smokeless Tobacco: Never Used Alcohol Use Standard Drinks/Week Comments Yes 0.8 (1 standard drink = 0.6 oz pure alco hol) Sex Assigned at Date Recorded Not on file documented as of this encounter Miscellaneous Notes Telephone Encounter - Tri Neri, RN - 10/08/2015 1:35 PM CST Pt called and LM stating that Juan HAMMOND wanted chip left in pt and needed OV cancelled with Dr Boyd. OV with Dr Boyd was to be cancelled, Pt has a loop recorder. JNelsonRN MAKER HELPER documented in this encounter Plan of Treatment Not on filedocumented as of this encounter Visit Diagnoses Not on filedocumented in this encounter Care Teams Organic Chemistry Professor Relationship Specialty Start Date End Date Abbe Charles MD PCP - General Family Practice 07/17/14 02/27/16 [facility] [address] [place] [phone] documented as of this encounter
--- OUTSIDE RECORDS SUMMARY | 2022-07-25 16:06 | XMS_ITS | Encounter Summary ---
:1950 Author Organization [place] Address [facility] [place] [address] Care Team Providers Name Role Phone Abbe Charles MD Primary Care Provider Reason for Visit Reason Comments Clinic Care Coordination - Follow-up clinic care coord ination RN Care Team Encounter Details Date Type Department Care Team Description 10/27/2014 Care Coordination [facility] Bill Thao Care Care Coordination MD [place] Coordination - [address] [place] [address] Follow-up (clinic [place], [place] [address] ); Care Team [id number] Social History Tobacco Use Types Packs/Day Years Used Date Never Smoker Smokeless Tobacco: Never Used Alcohol Use Standard Drinks/Week Comments Yes 0.8 (1 standard drink = 0.6 oz pure alco hol) Sex Assigned at Date Recorded Not on file documented as of this encounter Progress Notes Radha Montoya, PIO - 10/27/2014 12:29 PM CST Phone call from patient Patient states that he now has a new insurance carrier and will be unable to visit with [facility] He has an INR appt. tomorrow and wishes to cancel this appt. CCRN asked which clinic he would be visiting for his primary care and patient states he is uncertainas his takes care of all of this kind of stuff CCRN stressed the importance of getting in to get his INR checked and asked that he sign paperwork at new clinic to get his records transferred, patient agrees to this. CCRN will send to INR nurses Radha Montoya Process Development Engineer RN [facility] [phone] LITY MAINTENANCE SUPERVISOR documented in this encounter Plan of Treatment Not on filedocumented as of this encounter Visit Diagnoses Diagnosis Health Shelter - Primary notesas part of the Health Shelter [facility] to capture care coordination pl documented in this encounter Care Teams Settlement Agent Relationship Specialty Start Date End Date Abbe Charles MD PCP - General Family Practice 07/17/14 02/27/[address] [address] documented as of this encounter
--- OUTSIDE RECORDS SUMMARY | 2022-07-25 16:06 | XMS_ITS | Encounter Summary ---
:1950 Author Organization [facility] Address [address] [place] [address] Care Team Providers Name Role Phone Bill Thao MD Primary Care Provider [phone] Radha Montoya RN Unavailable Reason for Visit Reason Comments Shoulder Pain left Encounter Details Date Type Department Care Team Description 07/01/2014 Office Visit [facility], Imp ingement syndrome, shoulder, left (Primary Dx); Orthopedic Care Rajendra HAMMOND Left shoulder pain [place] [address] [place] [address] [address] [facility] [address] [place] [address] [phone] (Wo rk) Social History Tobacco Use Types Packs/Day Years Used Date Never Smoker Smokeless Tobacco: Never Used Alcohol Use Standard Drinks/Week Comments Yes 0.8 (1 standard drink = 0.6 oz pure alco hol) Sex Assigned at Date Recorded Not on file documented as of this encounter Last Filed Vital Signs Vital Sign Reading Time Taken Comments Blood Pressure 124/72 07/01/2014 8:45 AM CDT Pulse - - Temperature - - Respiratory Rate - - Oxygen Saturation - - Inhaled Oxygen Concentration - - Weight 123.8 kg (273 lb) 07/01/2014 8:45 AM CDT Height 185.4 cm (6' 1) 07/01/2014 8:45 AM CDT Body Mass Index 36.02 07/01/2014 8:45 AM CDT documented in this encounter Patient Instructions Patient InstructionsNorris Álvarez MD - 07/01/2014 10:17 AM CDT Return to clinic in six weeks if pain persists We will consider another cortisone injection at that point Frequent stretching as shown today documented in this encounter Progress Notes Norris Álvarez MD - 07/01/2014 8:51 AM CDT HISTORY OF PRESENT ILLNESS: Damon Mcacll is a 64 year old male who is seen in consultation at the request of Dr. Thao for left shoulder pain. Present symptoms: Patient suffered a left sided stroke 12 years ago and has had left shoulder pain since. The symptom was more of ill-defined numbness and tingling rather than sharp pain. Patient had another stroke in February 2014. Since this last stroke his left shoulder pain has been worsening. Pain goes into his elbow at times. Sharp pains with certain motions. Denies any injury. Patient has a [employer] Heart Monitor. He has not felt any changes of range of motion of the shoulder otherwise. He does not have any specific neck pain associated with her shoulder pain. He has difficulty of sleeping. Painis worse with elevation movement. He does not have any symptoms on the right side. No imaging studies or particular treatments have been applied for the shoulder. Treatments tried to this point: Prescription Medication as directed: Hydrocodone/Acetaminophen (Vicodin) Topical Treatments: Ice Orthopedic PMH: none Past Medical History Diagnosis Date ??? Unspecified cerebral artery occlusion with cerebral infarction ??? Hypertension ??? Neuropathy ??? TIA (transient ischaemic attack) ??? Irregular heart beat Past Surgical History Procedure Laterality Date ??? Gi surgery ??? Resection abdominal perineal ??? Colonoscopy ??? Colonoscopy 10/17/2012 Procedure: COLONOSCOPY; Colonoscopy; Surgeon: Damon Jaimes MD; Location: GI Family History Problem Relation Age of Onset ??? Cancer Mother ??? C.A.D. Father ??? Diabetes Sister History Social History ??? Marital Status: Spouse Name: N/A Number of Children: N/A ??? Years of Education: N/A Occupational History ??? Not on file. Social History Main Topics ??? Smoking status: Never Smoker ??? Smokeless tobacco: Never Used ??? Alcohol Use: 0.5 oz/week 1 drink(s) per week ??? Drug Use: No ??? Sexual Activity: Partners: Female Other Topics Concern ??? Parent/Sibling W/ Cabg, Mi Or Angioplasty Before 65f 55m? Yes Social History Narrative Current Outpatient Prescriptions Medication Sig Dispense Refill ??? HYDROcodone-acetaminophen (NORCO) 5-325 MG per tablet Take 1 tablet by mouth every 6 hours as needed for moderate to severe pain 60 tablet 1 ??? amLODIPine (NORVASC) 5 MG tablet Take 1 tablet (5 mg) by mouth daily 90 tablet 2 ??? cyanocobalamin [address] 2 tablets (1,000 mcg) under the tongue daily 60 tablet 5 ??? levETIRAcetam 1000 MG TABS Take 1,500 mg by mouth 2 times daily 60 tablet 3 ??? blood glucose (ACCU-CHEK KRISTI) test strip Use to test blood sugars 1 times daily for dizziness.. Brand per patient preference and health care plan. 100 strip 2 ??? aspirin 81 MG tablet Take 1 tablet (81 mg) by mouth daily Stop taking aspirin while on SUBQ lovenox injections. When lovenox is stopped start ababy aspirin PO daily 30 tablet OTC ??? warfarin (COUMADIN) 2.5 MG tablet Take 1 tablet (2.5 mg) by mouth daily Take 10mg po [facility] INR tomorrow 60 tablet 2 ??? ATENOLOL PO Take 100 mg by mouth every morning ??? GABAPENTIN PO Take 600 mg by mouth At Bedtime ??? MAGNESIUM OXIDE PO Take 500 mg by mouth every morning ??? Pregabalin (LYRICA PO) Take 75 mg by mouth At Bedtime ??? ROPINIROLE HCL PO Take 1 mg by mouth At Bedtime (Takes 2 x 0.5mg tabs for a total of 1mg at bedtime) ??? Riboflavin (VITAMIN B-2 PO) Take 200 mg by mouth 2 times daily ??? GABAPENTIN PO Take 300 mg by mouth every morning ??? lisinopril (PRINIVIL,ZESTRIL) 30 MG tablet Take 30 mg by mouth 2 times daily ??? simvastatin (ZOCOR) 20 MG tablet Take 20 mg by mouth At Bedtime. ??? folic acid-vit B6-vit B12 (FOLGARD) 0.8-10-0.115 MG TABS Take 1 tablet by mouth daily ??? Multiple Vitamin (MULTI-VITAMIN) per tablet Take 1 tablet by mouth daily. No Known Allergies REVIEW OF SYSTEMS: CONSTITUTIONAL: NEGATIVE for fever, chills, change in weight INTEGUMENTARY/SKIN: NEGATIVE for worrisome rashes, moles or lesions EYES: NEGATIVE for vision changes or irritation ENT/MOUTH: NEGATIVE for ear, mouth and throat problems RESP: NEGATIVE for significant cough or SOB BREAST: NEGATIVE for masses, tenderness or discharge CV: Arrhythmia GI: NEGATIVE for nausea, abdominal pain, heartburn, or change in bowel habits : Negative MUSCULOSKELETAL: See HPI above NEURO: Paresthesia on the left side of the body ENDOCRINE: NEGATIVE for temperature intolerance, skin/hair changes HEME/ALLERGY/IMMUNE: NEGATIVE for bleeding problems PSYCHIATRIC: NEGATIVE for changes in mood or affect PHYSICAL EXAM: BP 124/72 Ht 6' 1 (1.854 m) Wt 273 lb (123.832 kg) BMI 36.03 kg/m2 Body mass index is 36.03 kg/(m^2). GENERAL APPEARANCE: healthy, alert and no distress SKIN: no suspicious lesions or rashes NEURO: Normal strength and tone, mentation intact and speech normal VASCULAR: Good pulses, and capillary refill LYMPH: no lymphadenopathy PSYCH: mentation appears normal and affect normal/bright MSK: Alert and oriented healthy appearing Male Neck is supple Neck range of motion is full No focal tenderness is noted in the neck A.c. 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 Joint DJD and hypertrophy causing narrowingof the subacromial space There is a bone spur on both sides of a.c. Joint. Clinical situation was thoroughly explained after reviewing x-ray findings. Options were discussed and we felt that cortisone injection at this point would be a reasonable option. Remote possibility of surgery to address a.c. Joint arthropathy and impingement was explained as well. Specific stretching exercises were shown and he was instructed to do these exercises frequently at home to prevent frozen shoulder. With his approval, a combination of 8 mg of dexamethasone and Xylocaine was given into the subacromial space the left shoulder. He tolerated it well. Will check back with him in six weeks if he has continuing problem for consideration of another injection at that time. Imaging Interpretation: Three views of the left shoulder demonstrate well- maintained glenohumeral joint space. A.c. Joint has degenerative changes with a bone spurs on both sides of the joint causing some narrowing of the subacromial space. No acute fractures are noted otherwise. No subluxation or dislocation of the gleno-humeral joint is noted Norris Álvarez MD Department of Orthopedic Surgery Disclaimer: This note consists of symbols derived from keyboarding, dictation and/or voice recognition software. As a result, there may be errors in the script that have gone undetected. Please consider this when interpreting information found in this chart. documented in this encounter Nursing Notes Dacia Ag RN - 07/01/2014 8:47 AM CDT Chief Complaint Patient presents with ??? Shoulder Pain left Initial BP 124/72 Ht 6' 1 (1.854 m) Wt 273 lb (123.832 kg) BMI 36.03 kg/m2 Estimated body mass index is 36.03 kg/(m^2) as calculated from the following: Height as of this encounter: 6' 1 (1.854 m). Weight as of this encounter: 273 lb (123.832 kg). BP completed using cuff size: large documented in this encounter Plan of Treatment Not on filedocumented as of this encounter Procedures Procedure Name Priority Date/Time Associated Diagnosis Comme nts HC DRAIN/INJ MAJOR Routine 07/01/2014 10:11 AM Left shou lder pain JOINT/BURSA W/O US CDT Impingement syndrome, shoulder, left documented in this encounter Visit Diagnoses Diagnosis Impingement syndrome, shoulder, left - P rimary Left shoulder pain Pain in joint, shoulder region documented in this encounter Care Teams Wood Repatcher Relationship Specialty Start Date End Date Bill Thao, PCP - General Family Practice 04/14/14 07/16/14 [address] [place] [address] Radha Montoya, PIO Clinic General Agent Nurse 04/15/14 10/26/14 documented as of this encounter
--- OUTSIDE RECORDS SUMMARY | 2022-07-25 16:06 | XMS_ITS | Encounter Summary ---
:1950 Author Organization [place] Address [facility] [place] [address] Care Team Providers Name Role Phone Abbe Charles MD Primary Care Provider Reason for Visit Reason Comments ICD Check missed carelink Encounter Details Date Type Department Care Team Description 08/25/2015 Documentation Only [facility] Theodora Qureshi Check (missed Heart Clinic Daphnie carelink) [address] [facility] [address] [place] [address] Social History Tobacco Use Types Packs/Day Years Used Date Never Smoker Smokeless Tobacco: Never Used Alcohol Use Standard Drinks/Week Comments Yes 0.8 (1 standard drink = 0.6 oz pure alco hol) Sex Assigned at Date Recorded Not on file documented as of this encounter Progress Notes Theodora Santizo - 08/25/2015 1:10 PM CST Patient missed carelink transmission 08/17/15. Sent letter 08/18, no response. Sent 1 week letter today D AND ADOLESCENT THERAPIST documented in this encounter Plan of Treatment Not on filedocumented as of this encounter Visit Diagnoses Not on filedocumented in this encounter Care Teams Warehouse Lead Relationship Specialty Start Date End Date Abbe Charles MD PCP - General Family Practice 07/17/14 02/27/[address] [address] documented as of this encounter
--- OUTSIDE RECORDS SUMMARY | 2022-07-25 16:06 | XMS_ITS | Encounter Summary ---
:1950 Author Organization [facility] Address [address] [place] [address] Care Team Providers Name Role Phone Bill Thao MD Primary Care Provider Radha Montoya RN Unavailable Reason for Visit Reason Comments Anticoagulation Encounter Details Date Type Department Care Team Description 07/03/2014 Allied Health/Nurse [facility] Clinic Anticoagulation Visit [address] [address] Social History Tobacco Use Types Packs/Day Years Used Date Never Smoker Smokeless Tobacco: Never Used Alcohol Use Standard Drinks/Week Comments Yes 0.8 (1 standard drink = 0.6 oz pure alco hol) Sex Assigned at Date Recorded Not on file documented as of this encounter Progress Notes Bernarda Sampson RN - 07/03/2014 9:45 AM CDT ANTICOAGULATION FOLLOW-UP CLINIC VISIT Patient Name: Damon Mccall Date: 07/03/2014 Contact Type: Face to Face Pt in clinic for INR today with no current issues or concerns. Denies subjective findings below. SUBJECTIVE: Bleeding Signs/Symptoms: None Thromboembolic Signs/Symptoms: None Medication Changes: No Dietary Changes: No Bacterial/Viral Infection: No Missed Coumadin Doses: None Other Concerns: Pt will be having dental work today ASSESSMENT/PLAN: See: ANTICOAGULATION QIC flow sheet. Bernarda Sampson RN documented in this encounter Plan of Treatment Not on filedocumented as of this encounter Procedures Procedure Name Priority Date/Time Associated Diagnosis Comme nts INR POINT OF CARE Routine 07/03/2014 manager long term care current use o f Results for this anticoagulant therapy proced ure are in the results section . documented in this encounter Results (ABNORMAL) INR point of care (07/03/2014) P athologist Signature INR Point of 3.1 (A) 0.86 - [facility] 1.14 LAB Specimen (Source) Anatomical Location Collection Method / Collectio n Time Received Time / Laterality Volume 07/03/2014 Bill Thao MD LAB - BLOOD ORDERABLES Performing Organization Address City/State/ZIP Code Phon e Number [facility] documented in this encounter Visit Diagnoses Diagnosis [facility] current use of anticoagulant t herapy - Primary documented in this encounter Care Teams Telesales Consultant Relationship Specialty Start Date End Date Bill Thao, PCP - General Family Practice 04/14/14 07/16/14 [address] [place] [address] Radha Montoya, PIO Clinic Network Coordinator Nurse 04/15/14 10/26/14 documented as of this encounter
--- OUTSIDE RECORDS SUMMARY | 2022-07-25 16:06 | XMS_ITS | Encounter Summary ---
:1950 Author Organization [place] Address [address] [place] [address] Care Team Providers Name Role Phone Abbe Charles MD Primary Care Provider Reason for Visit Reason Comments Loop Recorder Implant Check Carelink Transmission Encounter Details Date Type Department Care Team Description 10/26/2015 Office Visit [facility] for loop Health Heart recorder check (Primary Care-[place] Dx) [address] [facility] [address] [place] [address] Social History Tobacco Use Types Packs/Day Years Used Date Never Smoker Smokeless Tobacco: Never Used Alcohol Use Standard Drinks/Week Comments Yes 0.8 (1 standard drink = 0.6 oz pure alco hol) Sex Assigned at Date Recorded Not on file documented as of this encounter Progress Notes Liyah Cramer RN - 10/27/2015 12:56 PM CST [employer] Reveal Linq Loop Recorder Carelink Transmission No symptom generated events logged. One automated pause event detected. EGM reviewed and shows undersensing of R-wave. Battery status is OK. HR variability is excellent. Underlying rhythm at time of transmission is NSR. Utility Locator called pt with results of transmission and he has no complaints. Informed of next Carelink scheduled for . PIO Cramer. CTOR DIGITAL documented in this encounter Plan of Treatment Not on filedocumented as of this encounter Procedures Procedure Name Priority Date/Time Associated Diagnosis Comme nts C ICM/SQ CARDIAC RYTHYM Routine 10/27/2015 12:56 PM Encounter for loop MONITOR REMOTE TECH SERV DIRECTOR DIGITAL recorder check ZZC INTERROGATION DEVICE Routine 10/26/2015 Encounter for lo op EVAL, SQ CARDIAC RYTHYM recorder check MONITOR SYSTEM documented in this encounter Results C INTERROGATION DEVICE EVAL, ILR Remote ([id number]) (10/26/2015) Narrative This result has an attachment that is no t available. Christin Rayo MD PROCEDURES documented in this encounter Visit Diagnoses Diagnosis Encounter for loop recorder check - Prim tatyana documented in this encounter Care Teams Rn Clinical Trials Relationship Specialty Start Date End Date Abbe Charles MD PCP - General Family Practice 07/17/14 02/27/[address] [phone] documented as of this encounter
--- OUTSIDE RECORDS SUMMARY | 2022-07-25 16:06 | XMS_ITS | Encounter Summary ---
:1950 Author Organization [place] [facility] Address [address] [place] [address] Care Team Providers Name Role Phone Radha Montoya RN Unavailable Abbe Charles MD Primary Care Provider Reason for Visit Reason Comments Anticoagulation Encounter Details Date Type Department Care Team Description 07/28/2014 Allied Health/Nurse [facility] Clinic Anticoagulation Visit [address] [address] Social History Tobacco Use Types Packs/Day Years Used Date Never Smoker Smokeless Tobacco: Never Used Alcohol Use Standard Drinks/Week Comments Yes 0.8 (1 standard drink = 0.6 oz pure alco hol) Sex Assigned at Date Recorded Not on file documented as of this encounter Progress Notes Sindy Smith RN - 07/28/2014 8:38 AM CDT ANTICOAGULATION FOLLOW-UP CLINIC VISIT Patient Name: Damon Mccall Date: 07/28/2014 Contact Type: Face to Face SUBJECTIVE: Bleeding Signs/Symptoms: None Thromboembolic Signs/Symptoms: None Medication Changes: No Dietary Changes: No Bacterial/Viral Infection: No Missed Coumadin Doses: None Other Concerns: No ASSESSMENT/PLAN: See: ANTICOAGULATION QIC flow sheet. [facility] ANTICOAGULATION CLINIC documented in this encounter Plan of Treatment Not on filedocumented as of this encounter Procedures Procedure Name Priority Date/Time Associated Diagnosis Comme nts INR POINT OF CARE Routine 07/28/2014 biomedical engineering aide current use o f Results for this anticoagulant therapy proced ure are in the results section . documented in this encounter Results (ABNORMAL) INR point of care (07/28/2014) P athologist Signature INR Point of 2.3 (A) 0.86 - [facility] Care 1.14 LAB Specimen (Source) Anatomical Location Collection Method / Collectio n Time Received Time / Laterality Volume 07/28/2014 Abbe Charles MD LAB - BLOOD ORDERABLES Performing Organization Address City/State/ZIP Code Phon e Number [facility] documented in this encounter Visit Diagnoses Diagnosis [facility] current use of anticoagulant t herapy - Primary documented in this encounter Care Teams Lead Ramp Agent Relationship Specialty Start Date End Date Abbe Charles MD PCP - General Family Practice 07/17/14 02/27/[address] [phone] Radha Montoya RN Clinic Wooden Frame Builder Nurse 04/15/14 10/26/14 documented as of this encounter
--- OUTSIDE RECORDS SUMMARY | 2022-07-25 16:06 | XMS_ITS | Encounter Summary ---
:1950 Author Organization [facility] Address [address] [place] [address] Care Team Providers Name Role Phone Bill Thao MD Primary Care Provider Radha Montoya RN Unavailable Encounter Details Date Type Department Care Team Description 07/01/2014 Radiant Appointment [facility] L eft shoulder pain Orthopedic Care Rajendra Baca MD [place] [address] [place] [address], [address] [place] [address] Social History Tobacco Use Types Packs/Day Years [...] Priority Date/Time Associated Diagnosis Comme nts XR SHOULDER LEFT Routine 07/01/2014 9:09 AM Left shoulder pain Results for this G/E 3 VIEWS CDT procedure are i n the results section. documented in this encounter Results XR Shoulder Left G/E 3 Views (07/01/2014 9:09 AM CDT) Anatomical Region Laterality Modality Left Shoulder Left Computed Radiography Specimen (Source) Anatomical Location Collection Method / Collectio n Time Received Time / Laterality Volume Narrative 07/01/2014 10:19 AM CDT Three views of the left shoulder demonstrate well-maintained glenohumeral joint space. A.c. Joint has degenerative changes with a bone spurs on both sides of the joint causing some narrowin g of the subacromial space. No acute fractures are noted otherwise. No subluxation or dislocation of the gleno-humeral joint is noted Norris Álvarez MD IMG DIAGNOSTIC IMAGING ORDER BRICE documented in this encounter Visit Diagnoses Diagnosis Left shoulder pain Pain in joint, shoulder region documented in this encounter Care Teams Youth Development Professional Relationship Specialty Start Date End Date Bill Thao, PCP - General Family Practice 04/14/14 07/16/14 [address] [place] [address] Radha Montoya, PIO Clinic Global Vp Creative + Content Marketing Nurse 04/15/14 10/26/14 documented as of this encounter
--- OUTSIDE RECORDS SUMMARY | 2022-07-25 16:06 | XMS_ITS | Encounter Summary ---
:1950 Author Organization [place] Address [facility] [place] [address] Care Team Providers Name Role Phone Radha Montoya RN Unavailable Abbe Charles MD Primary Care Provider Reason for Visit Reason Comments Anticoagulation Encounter Details Date Type Department Care Team Description 09/30/2014 Allied Health/[facility] Anticoagulation Visit [address] [address] Social History Tobacco Use Types Packs/Day Years Used Date Never Smoker Smokeless Tobacco: Never Used Alcohol Use Standard Drinks/Week Comments Yes 0.8 (1 standard drink = 0.6 oz pure alco hol) Sex Assigned at Date Recorded Not on file documented as of this encounter Progress Notes Sindy Smith RN - 09/30/2014 9:32 AM CST ANTICOAGULATION FOLLOW-UP CLINIC VISIT Patient Name: Damon Mccall Date: 09/30/2014 Contact Type: Face to Face SUBJECTIVE: Bleeding Signs/Symptoms: None Thromboembolic Signs/Symptoms: None Medication Changes: Yes - pt not sure of what med, will notify us Dietary Changes: No Bacterial/Viral Infection: No Missed Coumadin Doses: None Other Concerns: Pt has been busy past 6 weeks, activity may be reason for low INR, or med changes. Pt plans change in PCP. Informed him we cannot monitor INR if he is outside [facility]. He will check and inform us at next visit. ASSESSMENT/PLAN: See: ANTICOAGULATION [facility] flow sheet. [facility] ANTICOAGULATION CLINIC HYSICAL PROSPECTOR documented in this encounter Plan of Treatment Not on filedocumented as of this encounter Procedures Procedure Name Priority Date/Time Associated Diagnosis Comme nts INR POINT OF CARE Routine 09/30/2014 TIA on medicat ion Results for this [facility] current use of pro cedure are in the anticoagulant therapy result s section. 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
--- OUTSIDE RECORDS SUMMARY | 2022-07-25 16:06 | XMS_ITS | Encounter Summary ---
:1950 Author Organization [place] Address [facility] [place] [address] Care Team Providers Name Role Phone Abbe Charles MD Primary Care Provider Reason for Referral - Closed Specialty Diagnoses / Procedures Referred By Contact Refer red To Contact Diagnoses Paroxysmal atrial fibrillation (H) [facility] [address] [facility] [address] [place] [address] Referral ID Status Reason Start Date Expiration Date Visits Requ ested Visits Authorized [id number] Closed 10/05/2015 10/04/2016 1 1 ON [facility]ER Reason for Visit Reason Onset Date Comments Clinic Care Coordination - Follow-up 09/21/2015 Encounter Details Date Type Department Care Team Description 09/21/2015 Telephone [facility] C are Coordination Heart Clinic Daphnie Bravo, RN, RN - Follow-up [address] [facility] [address] [facility] [place] [phone] [address] [facility] [phone] [address] [place] [id number] Social History Tobacco Use Types Packs/Day Years Used Date Never Smoker Smokeless Tobacco: Never Used Alcohol Use Standard Drinks/Week Comments Yes 0.8 (1 standard drink = 0.6 oz pure alco hol) Sex Assigned at Date Recorded Not on file documented as of this encounter Miscellaneous Notes Telephone Encounter - Raquel Gamino, RN, RN - 09/21/2015 4:36 PM CARTON STAPLER calling and requesting that Loop recorder be taken out. They have f/u at the [facility] and they are requesting that loop recorder be taken out. He will fu with Dr Boyd to discuss. ON ST[facility]ER documented in this encounter Plan of Treatment Scheduled Referrals Name Type Priority Associated Diagnoses Order S chedule Follow-Up with Referral Routine Paroxysmal atrial Expected : Manager Membership fibrillation (H) 09/22 (Approximate), Expires: 09/20/2016 documented as of this encounter Visit Diagnoses Diagnosis Paroxysmal atrial fibrillation (H) - Rupinder anand Atrial fibrillation documented in this encounter Care Teams Geospatial Applications Developer Relationship Specialty Start Date End Date Abbe Charles MD PCP - General Family Practice 07/17/14 02/27/[address] [phone] documented as of this encounter
--- OUTSIDE RECORDS SUMMARY | 2022-07-25 16:06 | XMS_ITS | Encounter Summary ---
:1950 Author Organization [place] Address [facility] [place] [address] Care Team Providers Name Role Phone Abbe Charles MD Primary Care Provider Reason for Visit Reason Onset Date Comments Patient Reminder 02/02/2015 Encounter Details Date Type Department Care Team Description 02/02/2015 Telephone [facility] Heart Cullen Santoyo tient Reminder Clinic Daphnie Hinds RN [address] [facility] [address] [place] [address] Social History Tobacco Use Types Packs/Day Years Used Date Never Smoker Smokeless Tobacco: Never Used Alcohol Use Standard Drinks/Week Comments Yes 0.8 (1 standard drink = 0.6 oz pure alco hol) Sex Assigned at Date Recorded Not on file documented as of this encounter Miscellaneous Notes Telephone Encounter - Lizet Santoyo RN - 02/02/2015 9:20 AM CDT Call to pt, message left for him to send a full transmission. He is overdue to send a transmission on his [employer] Loop Recorder (due ). A transmission was received on 01-31-15, showing past episodes prior to last check in . Episode logged on 09-01-2014 as tachycardia; rhythm shows a run of likely AT/PAT tachycardia with morphology similar to SR tracing. SueLanaraceliserNR documented in this encounter Plan of Treatment Not on filedocumented as of this encounter Visit Diagnoses Not on filedocumented in this encounter Care Teams Sewer Builder Relationship Specialty Start Date End Date Abbe Charles MD PCP - General Family Practice 07/17/14 02/27/[address] [phone] documented as of this encounter
--- OUTSIDE RECORDS SUMMARY | 2022-07-25 16:06 | XMS_ITS | Encounter Summary ---
:1950 Author Organization [place] Address [address] [place] [address] Care Team Providers Name Role Phone Abbe Charles MD Primary Care Provider Reason for Visit Reason Onset Date Comments Loop Recorder Implant Check 03/25/2015 manual trans mission for alert received Encounter Details Date Type Department Care Team Description 03/25/2015 Telephone [facility] Arelis Barreto Loop Re jim Implant Heart Clinic Daphnie Maldonado RN, RN Check (manual [address] [facility] HEART transm ission for alert [address] CLINIC received) [place] [address] [address] [facility] [address] [phone] [address] [place], [place] [phone] Social History Tobacco Use Types Packs/Day Years Used Date Never Smoker Smokeless Tobacco: Never Used Alcohol Use Standard Drinks/Week Comments Yes 0.8 (1 standard drink = 0.6 oz pure alco hol) Sex Assigned at Date Recorded Not on file documented as of this encounter Miscellaneous Notes Telephone Encounter - Arelis Barreto, RN, RN - 03/25/2015 2:00 PM CDT Medtronic Reveal Linq - manual transmission Pt sending in a full transmission after we received an alert for A-fib. Episodes stored showed undersensing of QRS - Device would not berry picker full signal QRS when pt was active- in the upper rates QRS diminsihed in size and device did not detect. Episodes reviewed with Dr Bravo. Pt notified. BrittRN documented in this encounter Plan of Treatment Not on filedocumented as of this encounter Visit Diagnoses Not on filedocumented in this encounter Care Teams Reach Truck Operator Relationship Specialty Start Date End Date Abbe Charles MD PCP - General Family Practice 07/17/14 02/27/[address] [phone] documented as of this encounter
--- OUTSIDE RECORDS SUMMARY | 2022-07-25 16:06 | XMS_ITS | Encounter Summary ---
:1950 Author Organization [place] Address [facility] [place] [address] Care Team Providers Name Role Phone Abbe Charles MD Primary Care Provider Reason for Visit Reason Comments Loop Recorder Implant Check alert for A-fib Encounter Details Date Type Department Care Team Description 03/16/2015 Office Visit [facility] Heart Hist ory of stroke (Primary Clinic Daphnie Dx) [address] [facility] [address] [place] [address] Social History Tobacco Use Types Packs/Day Years Used Date Never Smoker Smokeless Tobacco: Never Used Alcohol Use Standard Drinks/Week Comments Yes 0.8 (1 standard drink = 0.6 oz pure alco hol) Sex Assigned at Date Recorded Not on file documented as of this encounter Progress Notes Arelis Barreto RN, RN - 03/26/2015 3:28 PM CDT Medtronic Reveal loop recorder REMOTE ALERT- COURTESY CHECK-NO CHARGE I called and left message requesting pt send a full transmission. 5 days later he called and transmitted. No A-fib found, oversensing detected, Arelis Barreto RN documented in this encounter Plan of Treatment Not on filedocumented as of this encounter Visit Diagnoses Diagnosis History of stroke - Primary Transient ischemic attack (TIA), and cer ebral infarction without residual deficits documented in this encounter Care Teams Furnace Roaster Relationship Specialty Start Date End Date Abbe Charles MD PCP - General Family Practice 07/17/14 02/27/16 [facility] [address] [place] [phone] documented as of this encounter
--- OUTSIDE RECORDS SUMMARY | 2022-07-25 16:06 | XMS_ITS | Encounter Summary ---
:1950 Author Organization [place] Address [address] [place] [address] Care Team Providers Name Role Phone Radha Montoya RN Unavailable Abbe Charles MD Primary Care Provider Reason for Visit Reason Comments Anticoagulation Encounter Details Date Type Department Care Team Description 08/18/2014 Allied Health/Nurse [facility] Clinic Anticoagulation Visit [address] [address] Social History Tobacco Use Types Packs/Day Years Used Date Never Smoker Smokeless Tobacco: Never Used Alcohol Use Standard Drinks/Week Comments Yes 0.8 (1 standard drink = 0.6 oz pure alco hol) Sex Assigned at Date Recorded Not on file documented as of this encounter Progress Notes Layne Salas RN - 08/18/2014 1:04 PM CDT ANTICOAGULATION FOLLOW-UP CLINIC VISIT Patient Name: Damon Mccall Date: 08/18/2014 Contact Type: Face to Face SUBJECTIVE: Bleeding [...] Comme nts INR POINT OF CARE Routine 08/18/2014 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
--- OUTSIDE RECORDS SUMMARY | 2022-07-25 16:06 | XMS_ITS | Encounter Summary ---
:1950 Author Organization [place] Address [address] [facility] [place] [address] Care Team Providers Name Role Phone Abbe Charles MD Primary Care Provider Reason for Visit Reason Comments Loop Recorder Implant Check Encounter Details Date Type Department Care Team Description 07/29/[address] [facility] Heart Hist ory of TIA (transient Clinic Daphnie ischemic attack) and [facility] (Primary Dx) [address] [place] [address] Social History Tobacco Use Types Packs/Day Years Used Date Never Smoker Smokeless Tobacco: Never Used Alcohol Use Standard Drinks/Week Comments Yes 0.8 (1 standard drink = 0.6 oz pure alco hol) Sex Assigned at Date Recorded Not on file documented as of this encounter Progress Notes Raquel Gamino, PIO, RN - 07/29/2015 10:08 AM CDT Courtesy check. Medtronic Carelink remote check from loop recorder due to an episode of afib. It appear SR, rate 70s with T wave oversensing. There is also some undersensing of the QRS making the rrhythm appear more irregular than it is. Will need sensing adj at next check. Called and informed . They are headed out on vacation. He is f/u at [facility] and they have stopped several of his meds. MJBRN documented in this encounter Plan of Treatment Not on filedocumented as of this encounter Visit Diagnoses Diagnosis History of TIA (transient ischemic attac k) and stroke - Primary documented in this encounter Care Teams Storage Facility Rental Clerk Relationship Specialty Start Date End Date Abbe Charles MD PCP - General Family Practice 07/17/14 02/27/[address] [phone] documented as of this encounter
--- OUTSIDE RECORDS SUMMARY | 2022-07-25 16:06 | XMS_ITS | Encounter Summary ---
:1950 Author Organization [facility] Address [address] [place] [address]. [place] [address] Care Team Providers Name Role Phone Sindy Moses MD Primary Care Provider Reason for Visit Reason Comments Eye Problem Numbness Encounter Details Date Type Department Care Team Description 02/28/2016 - [facility] Alyssa Aguiar MD [facility] [address] [place] [address] Bilateral edema of lower extremity (Prim tatyana Dx); 02/29/2016 Maira Hughes, DO [address] [place] [address] Transient cerebral ischemia, unspecified transient cerebral ischemia type; Dept Acute nonintractable headach e, unspecified headache type; [address] Dizziness; [place], [place] Vision change s; [id number] Warfarin anticoagulation [phone] Social History Tobacco Use Types Packs/Day Years Used Date Never Smoker Smokeless Tobacco: Never Used Alcohol Use Standard Drinks/Week Comments No 0.8 (1 standard drink = 0.6 oz pure alco hol) Sex Assigned at Date Recorded Not on file documented as of this encounter Last Filed Vital Signs Vital Sign Reading Time Taken Comments Blood Pressure 148/64 02/29/2016 10:45 AM CDT Pulse 85 02/28/2016 5:27 PM CDT Temperature 36.1 ??C (97 ??F) 02/29/2016 10:45 AM CDT Respiratory Rate 16 02/29/2016 10:45 AM CDT Oxygen Saturation 93% 02/29/2016 10:45 AM CDT Inhaled Oxygen Concentration - - Weight 118.8 kg (261 lb 12.8 oz) 02/28/2016 9:11 PM CDT Height 185.4 cm (6' 1) 02/28/2016 9:11 PM CDT Body Mass Index 34.54 02/28/2016 9:11 PM CDT documented in this encounter Discharge Summaries Maira Garcia DO - 02/29/2016 10:27 AM CDT [facility] Discharge Summary Hospitalist Date of Admission: 02/28/2016 Date of Discharge: 02/29/16 Provider: Maira Garcia DO Date of Service (when I last saw the patient): 02/29/2016 Discharge Diagnoses 1. Vision changes, resolved - TIA vs. Migraine ROJAS 2. Dehydration and DIAMOND - resolved 3. Leg swelling 4. Severe neuropathy 5. Paroxysmal, chronic a fib Other medical issues: Past Medical History Diagnosis Date ??? Unspecified cerebral artery occlusion with cerebral infarction ??? Hypertension ??? Neuropathy (HCC) ??? TIA (transient ischaemic attack) ??? Irregular heart beat History of Present Illness Damon Mccall is an 65 year old male who presented with headache and vision changes for about 50 minutes. Please see the admission history and physical for full details. Hospital Course Damon Mccall was admitted on 02/28/2016. The following problems were addressed during his hospitalization: 1. Headache and vision changes Mr. Mccall has a h/o of chronic, paroxysmal a fib and TIA's and CVA. He presented to the ER after being outside all day. He fell lightheaded when he bent over but did not pass out. He developed a spellsimilar to previous spells. He develops a mild headache and then experienced wavy vision in the right eye. He become very photosensitive and kept his eyes closed. When he opened them, everything was purple out of the left eye. His speech was intact and he had no extremity weakness. His symptoms resolved by the time that he arrived to the ER and have not re-occurred during his OBS stay. He had a CT that did not reveal acute CVA and a CTA that revealed mild-moderate diffuse atherosclerotic disease. He was unable to have an MRI b/c of implanted cardiac chip. His LDL was within desired goal at 55. He had no a fib on tele monitoring overnight. He will continue both asa, warfarin and statin therapy. He will f/u with his PCP within 2 wks. He also follows with Neurology and Cardiology at the [facility] and has a call into his Neurologist at [facility]. 2. Dehydration and pre-renal DIAMOND Creat was slightly elevated on admission and he was clinically dehydrated. He was given 2L of NS over his hospital stay and his creat normalized. He was instructed to hold his po lasix for one additional day and restart on am of 03/02/16. 3. Chronic leg pain and swelling He will continue with his scheduled neurontin, as tolerated. He was encouraged to f/u with his PCP with a preclinical BMP, as above, and discuss continued lasix dosing. Significant Results and Procedures Pending Results Unresulted Labs Ordered in the Past 30 Days of this Admission No orders found for last 60 day(s). Code Status Full Code Primary Care Physician Sindy Moses Physical Exam Temp: 95.5 ??F (35.3 ??C) Temp src: Oral BP: 136/67 mmHg Pulse: 85 Heart Rate: 72 Resp: 18 SpO2: 97 % O2 Device: None (Room air) Filed Vitals: 02/28/16 2111 Weight: 118.752 kg (261 lb 12.8 oz) Vital Signs with Ranges Temp: [95.3 ??F (35.2 ??C)-98.5 ??F (36.9 ??C)] 95.5 ??F (35.3 ??C) Pulse: [64-85] 85 Heart Rate: [58-72] 72 Resp: [18] 18 BP: (103-153)/(54-80) 136/67 mmHg SpO2: [93 %-100 %] 97 % GEN: Alert, oriented x 3, comfortable, NAD, but fatigued HEENT: Normocephalic/atraumatic, PERRL, no scleral icterus, no nasal discharge, mouth moist, CV: Regular rate and rhythm, no murmur to ausc. S1 + S2 noted, no S3 or S4. LUNGS: Clear to auscultation bilaterally. No rales/rhonchi/wheezing auscultated bilaterally. No costal retractions bilaterally. Symmetric chest rise on inhalation noted. ABD: Active bowel sounds, soft, obese, non-tender/non-distended. No rebound/guarding/rigidity. No masses palpated. No obvious HSM to exam. EXT: No edema or cyanosis bilaterally. No joint synovitis noted. No calf- tenderness or asymmetry noted. Discharge Disposition Discharged to home Consultations This Hospital Stay PHARMACY TO DOSE WARFARIN NEUROLOGY IP CONSULT PHYSICAL THERAPY ADULT IP CONSULT PHYSICAL THERAPY ADULT IP CONSULT Time Spent on This Encounter I, Maira Garcia, personally saw the patient today and spent greater than 30 minutes discharging this patient. Discharge Orders Reason for your hospital stay You were admitted to the hospital for mild dehydration. You had symptoms of dizziness and vision changes that could be contributed to a TIA or migraine headache, as well. Follow-up and recommended labs and tests F/u with PCP within 10-14 days for hospital f/u and a preclinical BMP Coumadin dosing - 6mg po daily on 02/29/16, 03/01/16 and then 7.5mg po daily on 03/02/16 and then INR recheck on 03/03/16 with results to PCP for further coumadin dosing. Activity Your activity upon discharge: activity as tolerated Full Code Diet Follow this diet upon discharge: - resume home cardiac diet Discharge Medications Current Discharge Medication List CONTINUE these medications which have CHANGED Details furosemide (LASIX) 20 MG tablet Take 1 tablet (20 mg) by mouth every morning Qty: 30 tablet Comments: Hold am dose 03/01/16 - then resume am 03/02/16. Associated Diagnoses: Bilateral edema of lower extremity CONTINUE these medications which have NOT CHANGED Details Folic Acid-Vit B6-Vit B12 (FOLTABS 800 PO) Take 1 tablet by mouth every morning HYDROcodone-acetaminophen (NORCO) 7.5-325 MG per tablet Take 1 tablet by mouth every evening WARFARIN SODIUM PO Has been taking 6mg or 7.5mg depending on INR -last dose 02/26 6mg VITAMIN D, CHOLECALCIFEROL, PO Take 1,000 Units by mouth daily !! GABAPENTIN PO Take 600 mg by mouth qam and 12 noon !! GABAPENTIN PO Take 1,200 mg by mouth every evening amLODIPine (NORVASC) 5 MG tablet Take 1 tablet (5 mg) by mouth daily Qty: 90 tablet, Refills: 2 Associated Diagnoses: HTN (hypertension) cyanocobalamin [address] 2 tablets (1,000 mcg) under the tongue daily Qty: 60 tablet, Refills: 5 Associated Diagnoses: Vitamin B12 deficiency (non anaemic) aspirin 81 MG tablet Take 1 tablet (81 mg) by mouth daily Stop taking aspirin while on SUBQ lovenox injections. When lovenox is stopped start ababy aspirin PO daily Qty: 30 tablet, Refills: OTC Associated Diagnoses: TIA on medication MAGNESIUM OXIDE PO Take 500 mg by mouth every morning ROPINIROLE HCL PO Take 2 mg by mouth At Bedtime (Takes 4 x 0.5mg tabs for a total of 2mg at bedtime) Riboflavin (VITAMIN B-2 PO) Take 200 mg by mouth 2 times daily lisinopril (PRINIVIL,ZESTRIL) 30 MG tablet Take 20 mg by mouth 2 times daily simvastatin (ZOCOR) 20 MG tablet Take 20 mg by mouth every morning Multiple Vitamin (MULTI-VITAMIN) per tablet Take 1 tablet by mouth daily. blood glucose (ACCU-CHEK KRISTI) test strip Use to test blood sugars 1 times daily for dizziness.. Brand per patient preference and health care plan. Qty: 100 strip, Refills: 2 Associated Diagnoses: Syncope and collapse !! - Potential duplicate medications found. Please discuss with provider. Allergies No Known Allergies Data Recent Labs Lab 02/28/16 1700 WBC 5.9 HGB 13.5 HCT 39.0* MCV 89 PLT 207 Recent Labs Lab 02/29/16 0630 02/28/16 1732 02/28/16 1700 NA 141 -- 137 POTASSIUM 4.3 -- 3.9 CHLORIDE 109 -- 104 CO2 25 -- 24 ANIONGAP 7 -- 9 GLC 90 -- 143* BUN 22 -- 25 CR 1.24 -- 1.33* GFRESTIMATED 58* 47* 53* GFRESTBLACK 70 56* 65 JADEN 8.6 -- 9.2 Recent Labs Lab 02/29/16 0630 CHOL 116 HDL 47 LDL 55 TRIG 71 Results for orders placed or performed during the hospital encounter of 02/28/16 CT Head w/o Contrast Narrative CT OF THE HEAD WITHOUT CONTRAST 02/28/2016 6:26 PM COMPARISON: Head CT 04/11/2014. HISTORY: Episode of slurred speech, drooling, vision changes (resolved). TECHNIQUE: Axial CT images of the head from the skull base to the vertex were acquired without IV contrast. FINDINGS: Chronic left cerebellar infarct again noted. The ventricles and basal cisterns are within normal limits in configuration. There is no midline shift. There are no extra-axial fluid collections. No intracranial hemorrhage, mass or recent infarct. The visualized paranasal sinuses are well-aerated. There is no mastoiditis. There are no fractures of the visualized bones. Impression IMPRESSION: Chronic left cerebellar infarct again noted. Otherwise, normal head CT. No evidence for acute intracranial pathology. TRISTAN RAY MD CT Head Neck Angio w/o & w Contrast Narrative CT ANGIOGRAM OF THE HEAD AND NECK WITHOUT AND WITH CONTRAST 02/28/2016 6:33 PM COMPARISON: CT angiogram 04/11/2014. HISTORY: Evaluate for dissection/thromboembolism, visual disturbance. Lightheadedness. TECHNIQUE: Precontrast localizing scans were followed by CT angiography with an injection of 70 mL [id number] nonionic intravenous contrast material with scans through the head and neck. Images were transferred to a separate 3-D workstation where multiplanar reformations and 3-D images were created. Estimates of carotid stenoses are made relative to the distal internal carotid artery diameters except as noted. FINDINGS: Neck CTA: The common carotid arteries bilaterally are patent without stenosis. There is calcified atherosclerotic plaque at the origins of the internal carotid arteries on both sides that results in mild narrowing (less than 50% luminal diameter stenosis) on both sides. There is severe atherosclerotic narrowing at the origin of the left vertebral artery. The cervical vertebral arteries bilaterally are otherwise patent with no additional areas of stenosis. Head CTA: There is moderate atherosclerotic narrowing of the intradural distal left vertebral artery. The distal right vertebral artery is patent without stenosis. There is calcified atherosclerotic plaque of the intracranial distal internal carotid arteries on both sides that results in mild narrowing of the supraclinoid segment on the left but no significant narrowing on the right. The basilar, bilateral anterior cerebral, bilateral middle cerebral and bilateral posterior cerebral arteries are patent and unremarkable. Impression IMPRESSION: 1. 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 2. Moderate atherosclerotic narrowing of the intradural distal left vertebral artery. 3. Mild atherosclerotic narrowing of the supraclinoid distal left internal carotid artery. 4. Calcified atherosclerotic plaque at the origins of the internal carotid arteries on both sides and of the distal right internal carotid artery that does not result in any stenosis in any of these locations. 5. Otherwise, normal neck and head CT angiogram. TRISTAN RAY MD documented in this encounter Medications at Time [...] B12 deficiency (non the tongue daily anaemic) Folic Acid-Vit B6-Vit B12 Take 1 tablet by 0 (FOLTABS 800 PO) mouth every morning furosemide (LASIX) 20 MG Take 1 tablet (20 30 tablet 0 06/2016 tabletIndications: mg) by mouth every Bilateral edema of lower morning extremity GABAPENTIN PO Take 1,200 mg by 0 mouth every evening HYDROcodone-acetaminophen Take 1 tablet by 0 (NORCO) 7.5-325 MG per mouth every evening tablet lisinopril Take 20 mg by mouth 0 (PRINIVIL,ZESTRIL) 30 MG 2 times daily tablet MAGNESIUM OXIDE PO Take 500 mg by mouth 0 every morning ROPINIROLE HCL PO Take 2 mg by mouth 0 At Bedtime (Takes 4 x 0.5mg tabs for a total of 2mg at bedtime) simvastatin (ZOCOR) 20 MG Take 20 mg by mouth 0 tablet every morning GABAPENTIN PO Take 600 mg by mouth 0 0 06/22/2018 qam and 12 noon Multiple Vitamin Take 1 tablet by 0 (MULTI-VITAMIN) per mouth daily. tablet Riboflavin (VITAMIN B-2 Take 200 mg by mouth 0 06/22/2018 PO) 2 times daily VITAMIN D, Take 1,000 Units by 0 06/22 CHOLECALCIFEROL, PO mouth daily WARFARIN SODIUM PO Has been taking 6mg 0 06/22/2018 or 7.5mg depending on INR -last dose 02/26 6mg documented as of this encounter H&P Notes Mary Alice Albert PA-C - 02/28/2016 8:55 PM CDT [facility] Out[facility] Observation Unit History and Physical Exam Damon Mccall Date of : 1950 Age: [age] year old Date of Admission: 02/28/2016 Primary care provider: Sindy Moses Damon Mccall is a 65 year old male with a PMH significant for atrial fibrillation anticoagulated on coumadin, hx of 2 CVAs in 2002, lower extremity neuropathy, who presented to the Emergency Room with complaints of now resolved vision changes, hypotensive BP reading, lightheadedness, and slurred speech /drooling concerning for TIA vs complex migraine. Work up in the ED reveals: cbc wnl, Cr elevated to1.33 on BMP, INR therapeutic at 2.17, PTT 40, trop neg, CT of head w/o contrast and head/neck CTA with and w/o contrast showing no acute changes from previous imaging. Patient will be registered to Observation for further work-up and evaluation. 1. Concerns for TIA- Patient had episode of vision changes for 45 minutes, including 5 minutes of slurred speech and drooling witnessed by his . The patient's symptoms have resolved at this point aside from slight headache. Will register for observation, monitor on telemetry. Most recent echo bubble study I can find on file was in 2013, which had demonstrated findings suspicious for PFO, and upondiscussion with Dr. Kong it appears unnecessary to repeat this imaging as he is already therapeuticon coumadin. Was considering MRI but patient has an implanted cardiac chip device to monitor his HR and reports he has been told he cannot have an MRI with this in place. PT to evaluate gait, strength,and mobility. Will defer to morning rounder regarding further imaging studies or possible neurology consult. Continue daily aspirin 81 mg. Fasting lipid panel tomorrow AM. 2. DIAMOND secondary to likely dehydration: Patient's lightheadedness and vision changes may be related to dehydration, Cr is elevated to 1.33 and patient reports he did not drink much today. Orthostatic pressures were obtained in ED (see ED provider note), and will continue to collect tomorrow. Will provide IVF bolus this evening and repeat BMP in the AM. 3. Atrial fibrillation: Continue warfarin with pharmacy to dose. 4. HTN: Continue amlodipine 5 mg daily and lisinopril 20 mg daily. 5. HLD: Continue simvastatin 20 mg daily. 6. Neuropathy: Continue gabapentin per home regimen. Plan 1. Registered to Observation 2. Continue telemetry monitoring 3. Continue Aspirin EC 81 mg po daily and coumadin pharmacy to dose daily 4. Neuro Checks Q4, monitor BP, check fasting lipid panel and HgbA1c if appropriate. 5. Consider physical therapy for gait and mobility assessment 8. DVT prophylaxis: pt already on coumadin and aspirin 81 mg daily. Chief Complaint: Possible TIA History of Present Illness: Damon Mccall is a 65 year old male with a PMH of HTN, atrial fibrillation on coumadin and 81 mg aspirin, two CVAs (2002), and lower extremity neuropathy who complains of dysarthric speech, vision changes, and drooling this afternoon, now all resolved. He was working out in the yard all morning and afternoon. Around 4 PM, he started noticing that every time he bent over and stood back up he would feellightheaded and his vision would get blurry. About an hour later, he suddenly started seeing purple spots that he describes looking like stanton covering up 30-35% of his visual field in both eyes. He lowered himself to the floor of the garage when he due to the lightheadedness and vision changes, no r esolution of his symptoms. His came outside to check on him and noted he was drooling and his speech was slurred. She checked his blood pressure which was 93/58. The drooling and speech slurring lasted for about 5 minutes, but the vision changes persisted, so they decided to come to the ER. On the way to the ER, his vision changes completely resolved. The vision changes lasted for approximately 45 minutes total. The patient reports that he has a mild headache behind his eyes with light sensitivity, but otherwise his symptoms have resolved. He denies recent fever, chills, chest pain, nausea, vomiting, abdominal pain, or changes in bowel/bladder function. Denies double vision or full loss of vision, denies previous seizures. The patient mentions that his INR had been subtherapeutic for the past month, most recently checked 3 days ago at 1.8, despite compliance in taking his warfarin and adjustments made by the INR clinic. Of note, the patient has a rather extensive neurologic history, along with a history of atrial fibrillation, and is followed by both neurology and cardiology at the [facility]. His medical records have been requested. In the ED, VSS. CBC wnl, BMP demonstrated Cr 1.33, glucose 143, otherwise wnl. INR was therapeutic at 2.17. PTT 40. Troponin drawn was negative. Head CT demonstrated chronic left cerebellar infarct, noacute changes. Head/Neck CTA, with and without contrast demonstrated moderate atherosclerotic narrowing of the left vertebral artery and mild narrowing of the supraclinoid distal left internal carotid artery, calcified atherosclerotic plaque at the origins of the internal carotid arteries on both sides and of the distal right internal carotid artery with no stenosis, otherwise normal neck/head CT angiogram. Dr. Aguiar spoke with Dr. Magana of neurology who recommended an echocardiogram and perhaps MRI given this clinical scenario. However, upon discussing with patient found out that he has a chip device implanted to monitor his heart rate (not a pacemaker or defibrillator) and that he was instructed to NOT have an MRI done with this device in place. Patient's most recent echocardiogram with bubble study was in 2013, and it showed possibility of PFO. However, he is currently therapeutic on warfarin, so the benefit of getting another echocardiogram to evaluate this would not change what would be done for him. Past Medical History: Past Medical History Diagnosis Date ??? Unspecified cerebral artery occlusion with cerebral infarction ??? Hypertension ??? Neuropathy (HCC) ??? TIA (transient ischaemic attack) ??? Irregular heart beat Past Surgical History: Past Surgical History Procedure Laterality Date ??? Gi surgery ??? Resection abdominal perineal ??? Colonoscopy ??? Colonoscopy 10/17/2012 Procedure: COLONOSCOPY; Colonoscopy; Surgeon: Damon Jaimes MD; Location: GI Social History: History Social History ??? Marital Status: Spouse Name: N/A ??? Number of Children: N/A ??? Years of Education: N/A Occupational History ??? Not on file. Social History Main Topics ??? Smoking status: Never Smoker ??? Smokeless tobacco: Never Used ??? Alcohol Use: No ??? Drug Use: No ??? Sexual Activity: Partners: Female Other Topics Concern ??? Parent/Sibling W/ Cabg, Mi Or Angioplasty Before 65f 55m? Yes Social History Narrative Family History: Family History Problem Relation Age of Onset ??? Cancer Mother ??? C.A.D. Father ??? Diabetes Sister Allergies: No Known Allergies Medications: Prior to Admission medications Medication Sig Last Dose Taking? Auth Provider HYDROcodone-acetaminophen (NORCO) 5-325 MG per tablet Take 1-2 tablets by mouth every 4 hours as needed for moderate to severe pain Gilda Solis MD warfarin (COUMADIN) 2.5 MG tablet Take 1 tablet (2.5 mg) by mouth daily As directed by INR Clinic. Abbe Charles MD warfarin (COUMADIN) 5 MG tablet Take 1 tablet (5 mg) by mouth daily As directed by INR Clinic. Abbe Charles MD amLODIPine (NORVASC) 5 MG tablet Take 1 tablet (5 mg) by mouth daily Tristan Thao MD cyanocobalamin [address] 2 tablets (1,000 mcg) under the tongue daily Tristan Thao MD levETIRAcetam 1000 MG TABS Take 1,500 mg by mouth 2 times daily Tristan Thao MD blood glucose (ACCU-CHEK KRISTI) test strip Use to test blood sugars 1 times daily for dizziness.. Brand per patient preference and health care plan. Tristan Thao MD aspirin 81 MG tablet Take 1 tablet (81 mg) by mouth daily Stop taking aspirin while on SUBQ lovenox injections. When lovenox is stopped start ababy aspirin PO daily Meg Ramos MD MAGNESIUM OXIDE PO Take 500 mg by mouth every morning Unknown, Entered By History Pregabalin (LYRICA PO) Take 75 mg by mouth At Bedtime Unknown, Entered By History ROPINIROLE HCL PO Take 1 mg by mouth At Bedtime (Takes 2 x 0.5mg tabs for a total of 1mg at bedtime)Unknown, Entered By History Riboflavin (VITAMIN B-2 PO) Take 200 mg by mouth 2 times daily Unknown, Entered By History lisinopril (PRINIVIL,ZESTRIL) 30 MG tablet Take 30 mg by mouth 2 times daily Reported, Patient simvastatin (ZOCOR) 20 MG tablet Take 20 mg by mouth At Bedtime. Reported, Patient folic acid-vit B6-vit B12 (FOLGARD) 0.8-10-0.115 MG TABS Take 1 tablet by mouth daily Reported, Patient Multiple Vitamin (MULTI-VITAMIN) per tablet Take 1 tablet by mouth daily. Reported, Patient Review of Systems: A Comprehensive greater than 10 system review of systems was carried out. Pertinent positives and negatives are noted above. Otherwise negative for contributory information. C: NEGATIVE for fever, chills, change in weight E/M: NEGATIVE for ear, mouth and throat problems R: NEGATIVE for significant cough or SOB CV: POSITIVE for history of atrial fibrillation; NEGATIVE for chest pain, palpitations or peripheraledema MUSCULOSKELETAL: NEGATIVE for significant arthralgias or myalgia NEURO: NEGATIVE for weakness, dizziness or paresthesias ROS otherwise negative NEURO ROS: negative except for dizziness, speech problems and paresthesias at the time of his symptoms, now all resolved Physical Exam: Blood pressure 136/76, pulse 85, temperature 98.5 ??F (36.9 ??C), temperature source Oral, resp. rate 18, SpO2 99 %. GENERAL: healthy, alert and no distress SPEECH: Patient's speech is normal. EYES: Eyes grossly normal to inspection HENT: ear canals- normal; TMs- normal; Nose- normal; Mouth- no ulcers, no lesions. Oral Mucosa-normal NECK: no tenderness, no adenopathy, no asymmetry, no masses, no stiffness; thyroid- normal to palpation RESP: lungs clear to auscultation - no rales, no rhonchi, no wheezes CV: Normal S1 & S2, no murmur ABDOMEN: soft, no tenderness, no hepatosplenomegaly, no masses, normal bowel sounds MS: extremities- no gross deformities noted, no peripheral edema SKIN: no suspicious lesions, no rashes NEURO: Normal strength and tone, sensory exam grossly normal, mentation intact, speech normal, gait normal, cranial nerves 2-12 intact GAIT: normal gait Cranial nerves 2 through 12 grossly intact and No facial droop, no lid lag, normal facial features present PSYCH: Alert and oriented times 3; coherent speech, normal rate and volume, able to articulate logical thoughts, able to abstract reason, no tangential thoughts, no hallucinations or delusions. Affect is normal. Data: EKG demonstrates: appears normal, NSR, normal axis, normal intervals, no acute ST/T changes c/w ischemia, unchanged from previous tracings. Results for orders placed or performed during the hospital encounter of 02/28/16 (from the past 48 hour(s)) EKG 12 lead Result Value Ref Range Interpretation ECG Click View Image link to view waveform and result CBC with platelets differential Result Value Ref Range WBC 5.9 4.0 - 11.0 10e9/L RBC Count 4.40 4.4 - 5.9 10e12/L Hemoglobin 13.5 13.3 - 17.7 g/dL Hematocrit 39.0 (L) 40.0 - 53.0 % MCV 89 78 - 100 fl MCH 30.7 26.5 - 33.0 pg MCHC 34.6 31.5 - 36.5 g/dL RDW 12.2 10.0 - 15.0 % Platelet Count 207 150 - 450 10e9/L Diff Method Automated Method % Neutrophils 60.9 % % Lymphocytes 25.5 % % Monocytes 9.3 % % Eosinophils 2.7 % % Basophils 1.4 % % Immature Granulocytes 0.2 % Nucleated RBCs 0 0 /100 Absolute Neutrophil 3.6 1.6 - 8.3 10e9/L Absolute Lymphocytes 1.5 0.8 - 5.3 10e9/L Absolute Monocytes 0.6 0.0 - 1.3 10e9/L Absolute Eosinophils 0.2 0.0 - 0.7 10e9/L Absolute Basophils 0.1 0.0 - 0.2 10e9/L Abs Immature Granulocytes 0.0 0 - 0.4 10e9/L Absolute Nucleated RBC 0.0 Basic metabolic panel Result Value Ref Range Sodium 137 133 - 144 mmol/L Potassium 3.9 3.4 - 5.3 mmol/L Chloride 104 94 - 109 mmol/L Carbon Dioxide 24 20 - 32 mmol/L Anion Gap 9 3 - 14 mmol/L Glucose 143 (H) 70 - 99 mg/dL Urea Nitrogen 25 7 - 30 mg/dL Creatinine 1.33 (H) 0.66 - 1.25 mg/dL GFR Estimate 53 (L) >60 mL/min/1.7m2 GFR Estimate If Black 65 >60 mL/min/1.7m2 Calcium 9.2 8.5 - 10.1 mg/dL INR Result Value Ref Range INR 2.17 (H) 0.86 - 1.14 Partial thromboplastin time Result Value Ref Range PTT 40 (H) 22 - 37 sec Troponin I Result Value Ref Range Troponin I ES 0.000 - 0.045 ug/L <0.015 The 99th percentile for upper reference range is 0.045 ug/L. Troponin values in the range of 0.045 - 0.120 ug/L may be associated with risks of adverse clinical events. Troponin POCT Result Value Ref Range Troponin I 0.01 0.00 - 0.10 ug/L Glucose by meter Result Value Ref Range Glucose 145 (H) 70 - 99 mg/dL Creatinine POCT Result Value Ref Range Creatinine 1.5 (H) 0.66 - 1.25 mg/dL GFR Estimate 47 (L) >60 mL/min/1.7m2 GFR Estimate If Black 56 (L) >60 mL/min/1.7m2 CT Head w/o Contrast Narrative CT OF THE HEAD WITHOUT CONTRAST 02/28/2016 6:26 PM COMPARISON: Head CT 04/11/2014. HISTORY: Episode of slurred speech, drooling, vision changes (resolved). TECHNIQUE: Axial CT images of the head from the skull base to the vertex were acquired without IV contrast. FINDINGS: Chronic left cerebellar infarct again noted. The ventricles and basal cisterns are within normal limits in configuration. There is no midline shift. There are no extra-axial fluid collections. No intracranial hemorrhage, mass or recent infarct. The visualized paranasal sinuses are well-aerated. There is no mastoiditis. There are no fractures of the visualized bones. Impression IMPRESSION: Chronic left cerebellar infarct again noted. Otherwise, normal head CT. No evidence for acute intracranial pathology. CT Head Neck Angio w/o & w Contrast Narrative CT ANGIOGRAM OF THE HEAD AND NECK WITHOUT AND WITH CONTRAST 02/28/2016 6:33 PM COMPARISON: CT angiogram 04/11/2014. HISTORY: Evaluate for dissection/thromboembolism, visual disturbance. Lightheadedness. TECHNIQUE: Precontrast localizing scans were followed by CT angiography with an injection of 70 mL [id number]-370 nonionic intravenous contrast material with scans through the head and neck. Images were transferred to a separate 3-D workstation where multiplanar reformations and 3-D images were created. Estimates of carotid stenoses are made relative to the distal internal carotid artery diameters except as noted. FINDINGS: Neck CTA: The common carotid arteries bilaterally are patent without stenosis. There is calcified atherosclerotic plaque at the origins of the internal carotid arteries on both sides that results in mild narrowing (less than 50% luminal diameter stenosis) on both sides. There is severe atherosclerotic narrowing at the origin of the left vertebral artery. The cervical vertebral arteries bilaterally are otherwise patent with no additional areas of stenosis. Head CTA: There is moderate atherosclerotic narrowing of the intradural distal left vertebral artery. The distal right vertebral artery is patent without stenosis. There is calcified atherosclerotic plaque of the intracranial distal internal carotid arteries on both sides that results in mild narrowing of the supraclinoid segment on the left but no significant narrowing on the right. The basilar, bilateral anterior cerebral, bilateral middle cerebral and bilateral posterior cerebral arteries are patent and unremarkable. Impression IMPRESSION: 1. 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 2. Moderate atherosclerotic narrowing of the intradural distal left vertebral artery. 3. Mild atherosclerotic narrowing of the supraclinoid distal left internal carotid artery. 4. Calcified atherosclerotic plaque at the origins of the internal carotid arteries on both sides and of the distal right internal carotid artery that does not result in any stenosis in any of these locations. 5. Otherwise, normal neck and head CT angiogram. Mary Alice Albert PA-C This patient was discussed with Dr. Kong who agrees with the current plans as outlined above. Associated attestation - Shaneka Adma MD - 04/19/2016 5:14 PM CDT Physician Attestation I, Shaneka Adam, have reviewed and discussed with the advanced practice provider their history, physical and plan for Damon Yoseph Mccall. I did not participate in a shared visit by interviewing or examiningthe patient and this should be billed as an advanced practice provider only visit. Shaneka Adam Date of Service (when I saw the patient): I did not personally see this patient today. documented in this encounter ED Notes Thelma Lawrence RN - 02/29/2016 10:56 AM CDT OBSERVATION patient END time: 1056 Thelma Tanner RN - 02/29/2016 9:33 AM CDT PRIMARY DIAGNOSIS: TIA OUTPATIENT/OBSERVATION GOALS TO BE MET BEFORE DISCHARGE: 1. Diagnostic testing complete & WNL: NA 2. Cleared by neurology wealth management consultant (if involved): NA 3. Patient at neurological baseline: Yes 4. ADLs back to baseline??? Yes 5. Activity and level of assistance: Ambulating independently. 6. Pain status: Pain free. 7. Barriers to discharge noted No A&O X4. Up independent. Denies pain, tingling on lower extremities and vision changes. No slurring of speech noted. Vitals stable.?? Plan to dc home later today Please review provider orders for any additional goals. ? ILT Gina Buck RN - 02/29/2016 4:10 AM CDT PRIMARY DIAGNOSIS: TIA OUTPATIENT/OBSERVATION GOALS TO BE MET BEFORE DISCHARGE: 1. Diagnostic testing complete & WNL: NA 2. Cleared by neurology wealth management consultant (if involved): No, PT consult in am 02/28 3. Patient at neurological baseline: Yes 4. ADLs back to baseline? Yes 5. Activity and level of assistance: Ambulating independently. 6. Pain status: Pain free. 7. Barriers to discharge noted Yes, pending consult. A&O X4. Up independent. Denies pain, tingling on lower extremities and vision changes. No slurring of speech noted. Vitals stable. PT consult in the morning 02/28. Please review provider orders for any additional goals. Gina Costello RN - 02/29/2016 12:20 AM CDT PRIMARY DIAGNOSIS: TIA OUTPATIENT/OBSERVATION GOALS TO BE MET BEFORE DISCHARGE: 1. Diagnostic testing complete & WNL: NA 2. Cleared by neurology wealth management consultant (if involved): No, PT consult in am 02/28 3. Patient at neurological baseline: Yes 4. ADLs back to baseline? Yes 5. Activity and level of assistance: Ambulating independently. 6. Pain status: Pain free. 7. Barriers to discharge noted Yes, pending consult. A&O X4. Up independent. Denies pain but has tingling on both lower extremities. Denies vision changes. No slurring of speech noted. Cr 1.33, IV bolus running. PT consult in the morning 02/28. Please review provider orders for any additional goals. Stacey Gray RN - 02/28/2016 10:48 PM CDT Patient has Reveal LINQ cardiac implant. PA notified. MRI discontinued. Stacey Gray RN - 02/28/2016 9:46 PM CDT OBSERVATION patient IN TIME: 2107 ROOM #226 Living Situation (if not independent, order SW consult): with Facility name: n/a Activity level on admit: Independent Is patient a falls risk? No, Falls armband on? No, Bed alarm turned on? No, Personal alarm in place and turned on? No, Patient registered to observation; given Patient Bill of Rights; given the opportunity to ask questions about observation status and their plan of care. Patient has been oriented to the observation room, bathroom, and call light is in place. counter sales person: (info in demographics) ILT Stacey Gray RN - 02/28/2016 9:30 PM CDT PRIMARY DIAGNOSIS: TIA OUTPATIENT/OBSERVATION GOALS TO BE MET BEFORE DISCHARGE: 1. Diagnostic testing complete & WNL: Echo in AM 2. Cleared by neurology wealth management consultant (if involved): Neuro consult 02/28 3. Patient at neurological baseline: Yes 4. ADLs back to baseline? Yes 5. Activity and level of assistance: Ambulating independently. 6. Pain status: Improved-controlled with oral pain medications. 7. Barriers to discharge noted No A&O x 4. Up independent. Denies vision changes. Continues to have numbness/tingling in LUE, but improved. Complaining of 3/10 headache. PRN Tylenol given. Please review provider orders for any additional goals. Alyssa Aguiar MD - 02/28/2016 4:55 PM CDT History Chief Complaint: Visual Disturbance HPI Damon Mccall is a 65 year old anticoagulated male with a history of TIA who presents with a visual disturbance. The patient reports that he was working out in the yard all morning and afternoon and beginning at 1200 every time he bent over and stood back up he would get a gamino of lightheadedness. He continued working in the yard until about 1 hour ago when he began seeing purple spots in both eyes. He describes the spots as covering 25-30% of his visual field and compares it to looking at a bouquet of [place]. He laid himself down on the ground secondary to associated lightheadedness and when his came outside she noted he was drooling and had slurred speech. This lasted for approximately 5 minutes and she measured his blood pressure as 93/53 at that time. Here, the patient reports that the visual disturbance has resolved but he now as a mild headache behind the right eye. He also notes leftleg throbbing and tingling which is new for him. Damon endorses drinking plenty of fluids lately butnotes intentional decrease in food intake and the loss of 20 pounds over the last 2 weeks. The patient denies syncope, double vision, full loss of vision, weakness, chest pain, shortness of breath, abdominal pain, nausea, vomiting, diarrhea, urinary symptoms, or any other pertinent symptoms. Damon recently had a routine eye exam and no abnormalities were noted at that time. Of note, the patient's INR was last checked 2 days ago and was 1.8 prompting an increased in Coumadin dosage. Cardiac Risk Factors: CAD: Neg Hypertension: Pos Hyperlipidemia: Pos Diabetes: Neg Tobacco use: Neg Gender: M Age: 65 Familial Hx of CAD: Pos Allergies: The patient has no known drug allergies. Medications: Warfarin Amlodipine Cyanocobalamin Keppra Aspirin Magnesium oxide Lyrica Ropinirole Vitamin B2 Lisinopril Zocor Folgard MVI Past Medical History: TIA HTN HLD Seizures Neuropathy Paroxysmal atrial fibrillation Past Surgical History: GI surgery Resection abdominal perineal Family History: CAD, DM, Cancer Social History: Relationship status: Tobacco use: Negative Alcohol use: Negative The patient presents with his . Review of Systems Eyes: Positive for visual disturbance. Respiratory: Negative for shortness of breath. Cardiovascular: Negative for chest pain. Gastrointestinal: Negative for nausea, vomiting, abdominal pain and diarrhea. Genitourinary: Negative for dysuria, urgency, frequency and hematuria. Musculoskeletal: Positive for leg pain. Neurological: Positive for light-headedness and headaches. Negative for syncope. Positive for paresthesias. All other systems reviewed and are negative. Physical Exam First Vitals: BP 123/68 mmHg Pulse 80 Temp(Src) 98.5 ??F (36.9 ??C) (Oral) Resp 18 SpO2 96% Physical Exam General: Elderly female sitting upright Eyes: PERRL, Conjunctive within normal limits, no proptosis, EOMI, peripheral vision intact HENT: No scalp tenderness to palpation, no palpable hematoma. Moist mucous membranes, oropharynx clear. Neck: Nontender to palpation, normal active range of motion. CV: Normal S1S2, no murmur, rub or gallop. Regular rate and rhythm Resp: Clear to auscultation bilaterally, no wheezes, rales or rhonchi. Normal respiratory effort. GI: Abdomen is soft, nontender and nondistended. No palpable masses. No rebound or guarding. MSK: No edema. Nontender. Normal active range of motion. Skin: Warm and dry. No rashes or lesions or ecchymoses on visible skin. Neuro: Alert and oriented. Responds appropriately to all questions and commands. No focal findings appreciated. Normal muscle tone. Rapid movements intact, finger to nose intact. No facial asymmetry. Speech normal. Moves all extremities equally. Sensation intact equally to all dermatomes to bilateral upper and lower extremities. Psych: Normal mood and affect. Pleasant. Emergency Department Course ECG @ 1652 Indication: Screening for cardiac etiology Rate 72 bpm. TX interval 186 ms. QRS duration 116 ms. QT/QTc 482/418 ms. P-R-T axes -49. Notes: Normal sinus rhythm, Left anterior fascicular block, Left ventricular hypertrophy with QRS widening and repolarization abnormality, Cannot rule out Septal infarct (age undetermined), Abnormal ECG. No significant change compared to ECG dated 03/21/14. Time read 1654 Imaging: Radiographic findings were communicated with the patient and family who voiced understanding of the findings. Head CT, without contrast, per radiology: Chronic left cerebellar infarct again noted. Otherwise, normal head CT. No evidence for acute intracranial pathology. Head/Neck CTA, with and without contrast, per radiology: 1. 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 2. Moderate atherosclerotic narrowing of the intradural distal left vertebral artery. 3. Mild atherosclerotic narrowing of the supraclinoid distal left internal carotid artery. 4. Calcified atherosclerotic plaque at the origins of the internal carotid arteries on both sides and of the distal right internal carotid artery that does not result in any stenosis in any of these locations. 5. Otherwise, normal neck and head CT angiogram. Laboratory: CBC: WBC 5.9, HGB 13.5, PLT 207 BMP: Glucose 143 (H), Creatinine 1.33 (H), GFR 53 (L), o/w WNL 1700: INR: 2.17 (H) 1700: PTT: 40 (H) 1700: Troponin I: <0.015 1720: Troponin POCT: 0.01 1722: Glucose by Meter: 145 (H) 1732: Creatinine POCT: Creatinine 1.5 (H), GFR 47 (L) Interventions: 1736: Normal Saline, 500 mL, IV 1801: Normal Saline, 500 mL, IV The patient's symptoms were improved with parenteral fluids. Emergency Department Course: Nursing notes and vitals reviewed. I performed an exam of the patient as documented above. Patient reassessed. Denies any current symptoms aside from a generalized off feeling. 1934: I spoke with Dr. Magana of Neurology. She recommends admission and echocardiogram. 1942: I rechecked the patient. No new concerns. 1950: Discussed the patient with HERON Castro of the hospitalist service who accepts care of thepatient. Disposition: Admit Impression & Plan Medical Decision Making: Damon Mccall is a 65 year old male with a history of TIA and atrial fibrillation on Coumadin who presents to the emergency room with concerns for dizziness, visual changes, and headache. Prior to my evaluation, his had also noted that his speech seemed different than typical and he was drooling when she found him on the floor in the garage. He had lowered himself to the ground, there was no trauma associated with this. He never had any loss of consciousness. Here in the emergency department he is neurologically intact. He complains of a mild headache but no other symptoms including the visual symptoms that have resolved. Multiple etiologies were considered including TIA/CVA, occular or atypical migraine, orthostatic hypotension. The patient has a therapeutic level of INR currently. He was subtherapeutic last week and recently has increased his dosing. There is no evidence of acute bleed on the CT scan. There is no evidence of acute ischemia on CT either. He has atherosclerotic narrowing ofhis vertebral basilar arteries which he has had in the past. I discussed his care with Dr. Magana of neurology who noted the patient would benefit from echocardiogram and perhaps MRI given this clinicalscenario for which would be TIA until excluded otherwise. Patient had no symptoms throughout his stay here in the ED and on reassessment he noted he was feeling fine aside from generalized unwell feeling. There is no indication for thrombolytics given resolutions of symptoms in the setting that seems unlikely to represent ongoing stroke and he is anticoagulated. I discussed the plan with he and family members. They verbalized understanding and agreement. All questions were answered prior to admission. Disposition: The patient is admitted to HERON Castro, of the hospitalist service to a telemetry bed in stablecondition. Diagnosis: ICD-10-CM 1. Transient cerebral ischemia, unspecified transient cerebral ischemia type G45.9 2. Acute nonintractable headache, unspecified headache type R51 3. Dizziness R42 4. Vision changes H53.9 5. Warfarin anticoagulation Z79.01 Elly Rolon, am serving as a scribe on 02/28/2016 at 4:59 PM to personally document services performed by Alyssa Aguiar MD, based on my observations and the provider's statements to me. [facility] EMERGENCY DEPARTMENT Alyssa Aguiar MD 02/28/16 2231 Alva Hays RN - 02/28/2016 4:53 PM CDT Pt c/o bilat eye blurriness that started at 345pm. Pt seeing purple spots. Pt has h/o tia. Pt also c/o left arm numbness/tingling as well. Pt has bilat leg numbness. No chest pain or sob. Pt had an episode of dizziness that started at 1200 after bending over. Pt c/o a headache that comes and goes. documented in this encounter Miscellaneous Notes Pharmacy-Anticoagulation Service - Julia Amezquita [facility] - 02/29/2016 10:50 AM CDT Clinical Pharmacy- Warfarin Discharge Note Anticoagulation Dose History Recent Dosing and Labs Latest Ref Rng 07/11/2014 07/28/2014 08/18/2014 09/30/2014 12/19/2014 02/28/2016 02/29/2016 Warfarin 7.5 mg - - - - - - 7.5 mg - INR 0.86 - 1.14 - - - - 2.57(H) 2.17(H) 2.33(H) INR 0.86 - 1.14 3.5(A) 2.3(A) 2.8(A) 2.0(A) - - - Patient admitted with warfarin as prior to admission med. Discharge plan 6 mg on and . 7.5mgon . INR check on 03/03 Agree with plan . The patient should have an INR checked 03/03. Pharmacy-Anticoagulation Service - Julia Amezquita [facility] - 02/29/2016 9:55 AM CDT Clinical Pharmacy - Warfarin Dosing Consult Pharmacy has been consulted to manage this patient???s warfarin therapy. Indication: Atrial Fibrillation Therapy Goal: INR 2-3 Warfarin Prior to Admission: Yes Warfarin [employer] Regimen: Has been taking 6mg or 7.5mg depending on INR -last dose 02/26 6mg Significant drug interactions: zocor Recent documented change in oral intake/nutrition: Unknown Dose Comments: 7.5mg today INR Date Value Ref Range Status 02/29/2016 2.33* 0.86 - 1.14 Final 02/28/2016 2.17* 0.86 - 1.14 Final Recommend warfarin 6 mg today. (gave 7.5 mg yesterday). Pharmacy will monitor Damon Mccall daily andorder warfarin doses to achieve specified goal. Please contact pharmacy as soon as possible if the warfarin needs to be held for a procedure or if the warfarin goals change. Pharmacy-Admission Medication History - Lizet Singh [facility] - 02/28/2016 9:11 PM CDT Admission medication history interview status for this patient is complete. See [facility] admission navigator for allergy information, prior to admission medications and immunization status. Medication history interview source(s):Patient Medication history resources (including written lists, pill bottles, clinic record):patients list Primary pharmacy:[facility] Justin/Gabriela Changes made to [employer]ER medication list: Added: Lasix, Gabapentin, Vit D Deleted: Gopal Alvarado Changed: Folgard to Foltab,[place] dose,Lisinpril dose from 30mg to 20mg, Ropinirole from 1mg to 2mg, Warfarin dosing Actions taken by pharmacist (provider contacted, etc):None Additional medication history information:None Medication reconciliation/reorder completed by provider prior to medication history? Yes Prior to Admission medications Medication Sig Last Dose Taking? Auth Provider Folic Acid-Vit B6-Vit B12 (FOLTABS 800 PO) Take 1 tablet by mouth every morning 02/28/2016 at Unknown time Yes Unknown, Entered By History HYDROcodone-acetaminophen (NORCO) 7.5-325 MG per tablet Take 1 tablet by mouth every evening Past Week at Unknown time Yes Unknown, Entered By History WARFARIN SODIUM PO Has been taking 6mg or 7.5mg depending on INR -last dose 02/26 6mg 02/27/2016 at 6mg Yes Unknown, Entered By History Furosemide (LASIX PO) Take 20 mg by mouth every morning 02/28/2016 at Unknown time Yes Unknown, Entered By History VITAMIN D, CHOLECALCIFEROL, PO Take 1,000 Units by mouth daily 02/28/2016 at Unknown time Yes Unknown,Entered By History GABAPENTIN PO Take 600 mg by mouth qam and 12 noon 02/28/2016 at 1200 Yes Unknown, Entered By History GABAPENTIN PO Take 1,200 mg by mouth every evening 02/27/2016 at Unknown time Yes Unknown, Entered By History amLODIPine (NORVASC) 5 MG tablet Take 1 tablet (5 mg) by mouth daily 02/28/2016 at Unknown time Yes Tristan Thao MD cyanocobalamin [address] 2 tablets (1,000 mcg) under the tongue daily 02/28/2016 at Unknown time Yes Tristan Thao MD aspirin 81 MG tablet Take 1 tablet (81 mg) by mouth daily Stop taking aspirin while on SUBQ lovenox injections. When lovenox is stopped start ababy aspirin PO daily 02/28/2016 at Unknown time Yes Meg Ramos MD MAGNESIUM OXIDE PO Take 500 mg by mouth every morning 02/28/2016 at am Yes Unknown, Entered By History ROPINIROLE HCL PO Take 2 mg by mouth At Bedtime (Takes 4 x 0.5mg tabs for a total of 2mg at bedtime)02/27/2016 at pm Yes Unknown, Entered By History Riboflavin (VITAMIN B-2 PO) Take 200 mg by mouth 2 times daily 02/28/2016 at am Yes Unknown, Entered By History lisinopril (PRINIVIL,ZESTRIL) 30 MG tablet Take 20 mg by mouth 2 times daily 02/28/2016 at am Yes Reported, Patient simvastatin (ZOCOR) 20 MG tablet Take 20 mg by mouth every morning 02/28/2016 at Unknown time Yes Reported, Patient Multiple Vitamin (MULTI-VITAMIN) per tablet Take 1 tablet by mouth daily. 02/28/2016 at Unknown time Yes Reported, Patient blood glucose (ACCU-CHEK KRISTI) test strip Use to test blood sugars 1 times daily for dizziness.. Brand per patient preference and health care plan. Tristan Thao MD documented in this encounter Plan of Treatment Not on filedocumented as of this encounter Procedures Procedure Name Priority Date/Time Associated Comments Diagnosis INR Routine 02/29/2016 6:30 Transient cerebral Result s for this AM CDT ischemia, procedure are i n unspecified the results transient cerebral section. ischemia type LIPID REFLEX TO DIRECT Routine 02/29/2016 6:30 Transient cereb ral Results for this LDL PANEL AM CDT ischemia, procedure are i n unspecified the results transient cerebral section. ischemia type BASIC METABOLIC PANEL Routine 02/29/2016 6:30 Transient cerebr al Results for this AM CDT ischemia, procedure are i n unspecified the results transient cerebral section. ischemia type CTA HEAD NECK W STAT 02/28/2016 6:33 Results f or this CONTRAST PM CDT procedure are i n the results section. CT HEAD W/O CONTRAST STAT 02/28/2016 6:26 Resu lts for this PM CDT procedure are i n the results section. ISTAT CREATININE POCT Routine 02/28/2016 5:32 Res ults for this PM CDT procedure are i n the results section. GLUCOSE BY METER Routine 02/28/2016 5:22 Results for this PM CDT procedure are i n the results section. TROPONIN POCT Routine 02/28/2016 5:20 Results for this PM CDT procedure are i n the results section. CBC WITH PLATELETS & STAT 02/28/2016 5:00 Resu lts for this DIFFERENTIAL PM CDT procedure are i n the results section. TROPONIN I STAT 02/28/2016 5:00 Results for this PM CDT procedure are i n the results section. INR STAT 02/28/2016 5:00 Results for this PM CDT procedure are i n the results section. PARTIAL THROMBOPLASTIN STAT 02/28/2016 5:00 Re sults for this TIME PM CDT procedure are i n the results section. BASIC METABOLIC PANEL STAT 02/28/2016 5:00 Res ults for this PM CDT procedure are i n the results section. EKG 12-LEAD, TRACING STAT 02/28/2016 4:52 Resu lts for this ONLY PM CDT procedure are i n the results section. documented in this encounter Results (ABNORMAL) INR (02/29/2016 6:30 AM CDT) P athologist Signature INR 2.33 (H) 0.86 - 1.14 [facility] Specimen Anatomical Collection Method Collection Time Receive d Time (Source) Location / / Volume Laterality Blood specimen 02/29/2016 6:30 AM 016 6:51 (specimen) CDT AM CDT Mary Alice Albert PA-C LAB - BLOOD ORDERABLES Performing Organization Address City/[facility]/ZIP [facility] Phon e Number M [facility] [address], [place] [address] [facility] [address] [place], [place] [address] [phone] Lipid panel reflex to direct LDL (02/29/2016 6:30 AM CDT) Analysis Performed At Patho logist Time Signature Cholesterol 116 <200 mg/dL [facility] Triglycerides 71 <150 mg/dL [facility] HDL Cholesterol 47 >39 mg/dL [facility] LDL Cholesterol 55 <100 mg/dL [facility] Comment: Desirable: <100 mg/dl Non HDL Cholesterol 69 <130 mg/dL [facility] Specimen Anatomical Collection Method Collection Time Receive d Time (Source) Location / / Volume Laterality Blood specimen 02/29/2016 6:30 AM 016 6:51 (specimen) CDT AM CDT Mary Alice Albert PA-C LAB - BLOOD ORDERABLES Performing Organization Address City/[facility] Phon e Number M [facility] [address], [place] [address] [facility] [address] [place], [place] [address] [phone] (ABNORMAL) Basic metabolic panel (02/29/2016 6:30 AM CDT) P athologist Signature Sodium 141 133 - 144 [place] mmol/L [facility] Potassium 4.3 3.4 - 5.3 [place] mmol/L [facility] Chloride 109 94 - 109 [place] mmol/L [facility] Carbon Dioxide 25 20 - 32 [place] mmol/L [facility] Anion Gap 7 3 - 14 [place] mmol/L [facility] Glucose 90 70 - 99 [place] mg/dL [facility] Urea Nitrogen 22 7 - 30 [place] mg/dL [facility] Creatinine 1.24 0.66 - [place] 1.25 mg/dL [facility] GFR Estimate 58 (L) >60 [place] mL/min/1.[address] Comment: Non GFR Calc GFR Estimate If Black 70 >60 mL/min/1.7m2 F [facility] Comment: GFR Calc Calcium 8.6 8.5 - 10.1 mg/dL [facility] Specimen Anatomical Collection Method Collection Time Receive d Time (Source) Location / / Volume Laterality Blood specimen 02/29/2016 6:30 AM 016 6:51 (specimen) CDT AM CDT Mary Alice Albert PA-C LAB - BLOOD ORDERABLES Performing Organization Address City/State/ZIP Code Phon e Number M [facility] [address] [place] [address] [facility] [address] [phone] CT Head Neck Angio w/o & w Contrast (02/28/2016 6:33 PM CDT) Anatomical Region Laterality Modality Head, SUBRAD CT NEURO, SUBRAD CT NEURO, UMP CT NEURO Computed Tomography Specimen (Source) Anatomical Location Collection Method / Collectio n Time Received Time / Laterality Volume Impressions 02/28/2016 10:38 PM CDT IMPRESSION: 1. 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 2. Moderate atherosclerotic narrowing of the intradural distal left vertebral artery. 3. Mild atherosclerotic narrowing of the supraclinoid distal left internal carotid artery. 4. Calcified atherosclerotic plaque at t he origins of the internal carotid arteries on both sides and of th e distal right internal carotid artery that does not result in a ny stenosis in any of these locations. 5. Otherwise, normal neck and head CT an giogram. TRISTAN RAY MD Narrative 02/28/2016 10:[address] ANGIOGRAM OF THE HEAD AND NECK WITHOUT AND WITH CONTRAST ??02/28/2016 6:33 PM COMPARISON: CT angiogram 04/11/2014. HISTORY: Evaluate for dissection/thrombo embolism, visual disturbance. Lightheadedness. TECHNIQUE: ??Precontrast localizing scan s were followed by CT angiography with an injection of 70 mL I sovue-370 nonionic intravenous contrast material with scans through the head and neck. ??Images were transferred to a separate 3-D workstatio n where multiplanar reformations and 3-D images were created . ??Estimates of carotid stenoses are made relative to the distal internal carotid artery diameters except as noted. ?? FINDINGS: Neck CTA: The common carotid arteries bi laterally are patent without stenosis. There is calcified atheroscler otic plaque at the origins of the internal carotid arteries on both si beni that results in mild narrowing (less than 50% luminal diamete r stenosis) on both sides. There is severe atherosclerotic narrowin g at the origin of the left vertebral artery. The cervical vertebral arteries bilaterally are otherwise patent with no additional area s of stenosis. Head CTA: There is moderate atherosclero tic narrowing of the intradural distal left vertebral artery. The distal right vertebral artery is patent without stenosis. There is calcified atherosclerotic plaque of the intracranial distal business services intern al carotid arteries on both sides that results in mild narrowing of the supraclinoid segment on the left but no significant narrowing on the right. The basilar, bilateral anterior cerebral, bilateral m iddle cerebral and bilateral posterior cerebral arteries are patent a nd unremarkable. Procedure Note Tristan Ray MD - 02/28/2016Forma tting of this note might be different from the original. CT ANGIOGRAM OF THE HEAD AND NECK WITHOU T AND WITH CONTRAST 02/28/2016 6:33 PM COMPARISON: CT angiogram 04/11/2014. HISTORY: Evaluate for dissection/thrombo embolism, visual disturbance. Lightheadedness. TECHNIQUE: Precontrast localizing scans were followed by CT angiography with an injection of 70 mL I sovue-370 nonionic intravenous contrast material with scans through the head and neck. Images were transferred to a separate 3-D workstatio n where multiplanar reformations and 3-D images were created . Estimates of carotid stenoses are made relative to the distal internal carotid artery diameters except as noted. FINDINGS: Neck CTA: The common carotid arteries bi laterally are patent without stenosis. There is calcified atheroscler otic plaque at the origins of the internal carotid arteries on both si beni that results in mild narrowing (less than 50% luminal diamete r stenosis) on both sides. There is severe atherosclerotic narrowin g at the origin of the left vertebral artery. The cervical vertebral arteries bilaterally are otherwise patent with no additional area s of stenosis. Head CTA: There is moderate atherosclero tic narrowing of the intradural distal left vertebral artery. The distal right vertebral artery is patent without stenosis. There is calcified atherosclerotic plaque of the intracranial distal business services intern al carotid arteries on both sides that results in mild narrowing of the supraclinoid segment on the left but no significant narrowing on the right. The basilar, bilateral anterior cerebral, bilateral m iddle cerebral and bilateral posterior cerebral arteries are patent a nd unremarkable. IMPRESSION: 1. 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 2. Moderate atherosclerotic narrowing of the intradural distal left vertebral artery. 3. Mild atherosclerotic narrowing of the supraclinoid distal left internal carotid artery. 4. Calcified atherosclerotic plaque at t he origins of the internal carotid arteries on both sides and of th e distal right internal carotid artery that does not result in a ny stenosis in any of these locations. 5. Otherwise, normal neck and head CT an giogram. TRISTAN RAY MD Alyssa Aguiar MD IMG CT ORDERABLES CT Head w/o Contrast (02/28/2016 6:26 PM CDT) Anatomical Region Laterality Modality Head, SUBRAD CT NEURO, SUBRAD CT NEURO, [facility] CT NEURO Computed Tomography Specimen (Source) Anatomical Location Collection Method / Collectio n Time Received Time / Laterality Volume Impressions 02/28/2016 10:27 PM CDT IMPRESSION: Chronic left cerebellar infarct again noted. Otherwise, normal head CT. No evidence for acute in tracranial pathology. TRISTAN RAY MD Narrative 02/28/2016 10:[address] OF THE HEAD WITHOUT CONTRAST 02/28/2016 6:26 PM COMPARISON: Head CT 04/11/2014. HISTORY: ??Episode of slurred speech, dr barrett, vision changes (resolved). TECHNIQUE: Axial CT images of the head f rom the skull base to the vertex were acquired without IV contrast . FINDINGS: Chronic left cerebellar infarc t again noted. The ventricles and basal cisterns are within normal marquez its in configuration. There is no midline shift. There are no extra-axi al fluid collections. ? No intracranial hemorrhage, mass or rece nt infarct. The visualized paranasal sinuses are wel l-aerated. There is no mastoiditis. There are no fractures of t he visualized bones. ? Procedure Note Tristan Ray MD - 02/28/2016Forma tting of this note might be different from the original. CT OF THE HEAD WITHOUT CONTRAST 02/28/2016 6:26 PM COMPARISON: Head CT 04/11/2014. HISTORY: Episode of slurred speech, droo ling, vision changes (resolved). TECHNIQUE: Axial CT images of the head f rom the skull base to the vertex were acquired without IV contrast . FINDINGS: Chronic left cerebellar infarc t again noted. The ventricles and basal cisterns are within normal marquez its in configuration. There is no midline shift. There are no extra-axi al fluid collections. No intracranial hemorrhage, mass or rece nt infarct. The visualized paranasal sinuses are wel l-aerated. There is no mastoiditis. There are no fractures of t he visualized bones. IMPRESSION: Chronic left cerebellar infa rct again noted. Otherwise, normal head CT. No evidence for acute in tracranial pathology. TRISTAN RAY MD Alyssa Aguiar MD IMG CT ORDERABLES (ABNORMAL) Creatinine POCT (02/28/2016 5:32 PM CDT) athologist Signature Creatinine 1.5 (H) 0.66 - POINT OF CARE 1.25 mg/dL TEST, HANDHELD METER GFR Estimate 47 (L) >60 POINT OF CARE mL/min/1.7 TEST, m2 HANDHELD METER GFR Estimate If 56 (L) >60 POINT OF CARE Black mL/min/1.7 TEST, m2 HANDHELD METER Specimen Anatomical Collection Method Collection Time Receive d Time (Source) Location / / Volume Laterality 02/28/2016 5:32 PM 6 5:40 CDT PM CDT Alyssa Aguiar MD [facility] POCT Performing Organization Address City/State/ZIP Code Phon e Number FV POINT OF CARE TEST, HANDHELD METER POINT OF CARE TEST, HANDHELD METER (ABNORMAL) Glucose by meter (02/28/2016 5:22 PM CDT) P athologist Signature Glucose 145 (H) 70 - 99 POINT OF CARE mg/dL TEST, GLUCOSE Specimen Anatomical Collection Method Collection Time Receive d Time (Source) Location / / Volume Laterality 02/28/2016 5:22 PM 6 5:25 CDT PM CDT Alyssa Aguiar MD LAB - BEAKER POCT Performing Organization Address City/[facility]/ZIP Code Phon e Number FV POINT OF CARE TEST, GLUCOSE POINT OF CARE TEST, GLUCOSE Troponin POCT (02/28/2016 5:20 PM CDT) P athologist Signature Troponin I 0.01 0.00 - 0.10 POINT OF CARE ug/L TEST, HANDHELD METER Specimen Anatomical Collection Method Collection Time Receive d Time (Source) Location / / Volume Laterality 02/28/2016 5:20 PM 6 5:40 CDT PM CDT Alyssa Aguiar MD LAB - ENTER/EDIT POCT Performing Organization Address [facility]/ZIP Code Phon e Number FV POINT OF CARE TEST, HANDHELD METER POINT OF CARE TEST, HANDHELD METER Troponin I (02/28/2016 5:00 PM CDT) [facility] Time Signature Troponin I ES <0.015 0.000 - [place] The 99th percentile for uppe r reference range is 0.045 ug/L. ??Troponin values in 0.045 [facility] the range of 0.045 - 0.120 ug/L may be associated wit h risks of adverse ug/L HOSPITAL clinical events. Specimen Anatomical Collection Method Collection Time Receive d Time (Source) Location / / Volume Laterality Blood specimen 02/28/2016 5:00 PM 016 5:24 (specimen) CDT PM CDT Alyssa Aguiar MD LAB - BLOOD ORDERABLES Performing Organization Address City/[facility]/ZIP [facility] Phon e Number M [facility] [address], [place] [address] [facility] [address] [place] [address] [phone] (ABNORMAL) Partial thromboplastin time (02/28/2016 5:00 PM CDT) athologist Signature PTT 40 (H) 22 - 37 sec [facility] Specimen Anatomical Collection Method Collection Time Receive d Time (Source) Location / / Volume Laterality Blood specimen 02/28/2016 5:00 PM 016 5:24 (specimen) CDT PM CDT Alyssa Aguiar MD LAB - BLOOD ORDERABLES Performing Organization Address [facility]/ZIP [facility] Phon e Number [facility] [address], [place] [address] [facility] [address] [place], [place] [address], [facility] [phone] (ABNORMAL) INR (02/28/2016 5:00 PM CDT) P athologist Signature INR 2.17 (H) 0.86 - 1.14 [facility] Specimen Anatomical Collection Method Collection Time Receive d Time (Source) Location / / Volume Laterality Blood specimen 02/28/2016 5:00 PM 016 5:24 (specimen) CDT PM CDT Alyssa Aguiar MD LAB - BLOOD ORDERABLES Performing Organization Address City/[facility] [address], [place] [address] [place] [address] [address] [place], [place] [address] [phone] (ABNORMAL) Basic metabolic panel (02/28/2016 5:00 PM CDT) Analysis Performed At Patho logist Time Signature Sodium 137 133 - 144 [place] mmol/L [facility] Potassium 3.9 3.4 - 5.3 [place] mmol/L [facility] Chloride 104 94 - 109 [place] mmol/L [facility] Carbon Dioxide 24 20 - 32 [place] mmol/L [facility] Anion Gap 9 3 - 14 [place] mmol/L [facility] Glucose 143 (H) 70 - 99 [place] mg/dL [facility] Urea Nitrogen 25 7 - 30 [place] mg/dL [facility] Creatinine 1.33 (H) 0.66 - [facility] 1.25 mg/dL [facility] GFR Estimate 53 (L) >60 [place] mL/min/1.7 [facility] m2 [facility] Comment: Non GFR Calc GFR Estimate If Black 65 >60 mL/min/1.7m2 F [facility] Comment: GFR Calc Calcium 9.2 8.5 - 10.1 mg/dL [facility] Specimen Anatomical Collection Method Collection Time Receive d Time (Source) Location / / Volume Laterality Blood specimen 02/28/2016 5:00 PM 016 5:24 (specimen) CDT PM CDT Alyssa Aguiar MD LAB - BLOOD ORDERABLES Performing Organization Address City/State/ZIP Code Phon e Number M [place] [address] [address], [place] [address] HOSPITAL [facility] [address] [phone] (ABNORMAL) CBC with platelets differential (02/28/2016 5:00 PM CDT) [facility] gist Method Time Signature WBC 5.9 4.0 - [place] 11.0 [facility] 10e9/L [facility] RBC Count 4.40 4.4 - 5.9 [place] 10e12/L [facility] Hemoglobin 13.5 13.3 - [place] 17.7 g/dL [facility] Hematocrit 39.0 (L) 40.0 - [place] 53.0 % [facility] MCV 89 78 - 100 [facility] MCH 30.7 26.5 - [place] 33.0 pg [facility] MCHC 34.6 31.5 - [place] 36.5 g/dL [facility] RDW 12.2 10.0 - [place] 15.0 % [facility] Platelet Count 207 150 - 450 [place] 10e9/L [facility] Diff Method Automated [facility] % Neutrophils 60.9 % [facility] % Lymphocytes 25.5 % [facility] % Monocytes 9.3 % [facility] % Eosinophils 2.7 % [facility] % Basophils 1.4 % [facility] % Immature 0.2 % [place] Granulocytes [facility] Nucleated RBCs 0 0 /100 [facility] Absolute 3.6 1.6 - 8.3 [place] Neutrophil 10e9/L [facility] Absolute 1.5 0.8 - 5.3 [place] Lymphocytes 10e9/L [facility] Absolute 0.6 0.0 - 1.3 [place] Monocytes 10e9/L [facility] Absolute 0.2 0.0 - 0.7 [place] Eosinophils 10e9/L [facility] Absolute 0.1 0.0 - 0.2 [place] Basophils 10e9/L [facility] Abs Immature 0.0 0 - 0.4 [place] Granulocytes 10e9/[facility] Absolute 0.0 [place] Nucleated RBC [facility] Specimen Anatomical Collection Method Collection Time Receive d Time (Source) Location / / Volume Laterality Blood specimen 02/28/2016 5:00 PM 016 5:24 (specimen) CDT PM CDT Alyssa Aguiar MD LAB - BLOOD ORDERABLES Performing Organization Address City/State/ZIP [facility] Phon e Number [place] [address] [address] [place] [address] [phone] EKG 12 lead (02/28/2016 4:52 PM CDT) [facility] gist Method Time Signature Interpretation ECG Click View RADIOLOGY Image link RESULTS to view waveform and result Specimen (Source) Anatomical Collection Method Collection Time Re ceived Time Location / / Volume Laterality 02/28/2016 4:52 PM CDT Alyssa Aguiar MD ECG ORDERABLES Performing Organization Address City/[facility] Phon e Number RADIOLOGY RESULTS documented in this encounter Visit Diagnoses Diagnosis Bilateral edema of lower extremity - Rupinder kika Edema Transient cerebral ischemia, unspecified transient cerebral ischemia type Acute nonintractable headache, unspecifi ed headache type Dizziness Dizziness and giddiness Vision changes Unspecified visual disturbance Warfarin anticoagulation Encounter for long-term (current) use of anticoagulants Headache around the eyes Headache documented in this encounter Administered Medications Inactive Administered Medications - up to 3 most recent administrations Medication Order MAR Action Action Date Dose Rate Site 0.9% sodium chloride BOLUS New Bag 02/28/2016 5:36 PM CDT 500 mLs Intravenous, 500 mL, ONCE, On 02/28/16 at 1714, For 1 dose 0.9% sodium chloride BOLUS New Bag 02/28/2016 6:01 PM CDT 500 mLs Intravenous, 500 mL, ONCE, On Mon02/28/16 at 1753, For 1 dose 0.9% sodium chloride BOLUS New Bag 02/28/2016 6:17 PM CDT 80 mLs Intravenous, 1,000 mL, ONCE, On Mon02/28/16 at 1805, For 1 dose 0.9% sodium chloride BOLUS New Bag 02/28/2016 10:32 PM CDT 1,000 mLs 500 mL/hr Intravenous, 1,000 mL, ONCE, at 500 mL/hr, Administer over 2 Hours, On Mon02/28/16 at 2108, For 1 dose, Wide Open unless duration is otherwise specified acetaminophen (TYLENOL) tablet 975 mg Given 02/28/2016 9:22 PM CDT 975 mg 975 mg, Oral, EVERY 6 HOURS PRN, mild pain, Starting on Mon02/28/16 at 2107, Alternate ibuprofen (if ordered) with acetaminophen. Maximum acetaminophen dose from all sources = 75 mg/kg/day not to exceed 4 grams/day. amLODIPine (NORVASC) tablet 5 mg Given 02/29/2016 7:38 AM CDT 5 mg 5 mg, Oral, DAILY, First dose on Mon02/29/16 at 0800 aspirin EC tablet 81 mg Given 02/29/2016 7:38 AM CDT 81 mg 81 mg, Oral, DAILY, First dose on Mon02/29/16 at 0800 cyanocobalamin (vitamin B-12) tablet 1,000 Given 02/28 7:39 AM CDT 1,000 mcg mcg 1,000 mcg, Oral, DAILY, First dose on Mon02/29/16 at 0800 furosemide (LASIX) tablet 20 mg Given 02/29/2016 7:38 AM CDT 20 mg 20 mg, Oral, EVERY MORNING, First dose on Mon02/29/16 at 0800 gabapentin (NEURONTIN) tablet 1,200 mg Given 02/28/2016 10:28 PM CDT 1,200 mg 1,200 mg, Oral, EVERY EVENING, First dose on Mon02/28/16 at 2140 gabapentin (NEURONTIN) tablet 600 mg Given 02/29/2016 7:38 AM CDT 600 mg 600 mg, Oral, 2 TIMES DAILY, First dose (after last modification) on Mon02/29/16 at 0800 iopamidol (ISOVUE-370) 76% solution 500 mL Given 02/28/2016 6:17 PM CDT 70 mLs 500 mL, Intravenous, ONCE, On 02/28/16 at 1805, For 1 dose lisinopril (PRINIVIL,ZESTRIL) tablet 20 mg Given 02/29/2016 7:38 AM CDT 20 mg 20 mg, Oral, 2 TIMES DAILY, First dose on 02/28/16 at 2108 Given 02/28/2016 10:28 PM CDT 20 mg oxyCODONE (ROXICODONE) immediate release Given 02/29/2016 12:51 AM CDT 10 mg tablet 5-10 mg 5-10 mg, Oral, EVERY 3 HOURS PRN, moderate to severe pain, Starting on 02/28/16 at 2107, If age greater than 65 use lower dose for first time use. rOPINIRole (REQUIP) tablet 2 mg Given 02/28/2016 10:27 PM CDT 2 mg 2 mg, Oral, AT BEDTIME, First dose on 02/28/16 at 2200 simvastatin (ZOCOR) tablet 20 mg Given 02/29/2016 7:38 AM CDT 20 mg 20 mg, Oral, EVERY MORNING, First dose on 02/29/16 at 0800 sodium chloride (PF) 0.9% PF flush 3 mL Given 02/28/2016 10:29 PM CDT 3 mLs 3 mL, Intracatheter, EVERY 8 HOURS, First dose on 02/28/16 at 2108, And Q1H PRN, to lock peripheral IV dormant line. warfarin (COUMADIN) tablet 7.5 mg Given 02/28/2016 10:28 PM CDT 7.5 mg 7.5 mg, Oral, ONCE, On 02/28/16 at 2130, For 1 dose documented in this encounter Active and Recently Administered Medications Times are shown in CDT. Scheduled Medication Order 02/27/2016 02/28/2016 02/29/2016 0.9% sodium chloride BOLUS (COMPLETED) 1 736 (New Bag - Provider: Alva Hays, PIO)1801 (Stopped - Provider: Alva Hays RN) Intravenous, 500 mL, ONCE, 02/28/16 at 1714, For 1 dose 0.9% sodium chloride BOLUS (COMPLETED) 1 801 (New Bag - Provider: Alva Hays, RN)2210 (Stopped - Provider: Stacey Gray, RN) Intravenous, 500 mL, ONCE, 02/28/16 at 1753, For 1 dose 0.9% sodium chloride BOLUS (COMPLETED) 1 817 (New Bag - Provider: Sandee Seals - Comment: bulk)1818 (Stopped - Provider: Sandee Seals) Intravenous, 1,000 mL, ONCE, 02/28/16 at 1805, For 1 dose 0.9% sodium chloride BOLUS (COMPLETED) 2 232 (New Bag - Provider: Stacey Gray, RN) 0651 (Stopped - Provider: Gina Salinas RN) Intravenous, 1,000 mL, ONCE, at 500 mL/h r, for 2 Hours, 02/28/16 at 2108, For 1 dose, Wide Open unless duration is otherwise specified amLODIPine (NORVASC) tablet 5 mg (CANCELED) 0738 (Given - Provider: Thelma Lawrence RN) 5 mg, Oral, DAILY, First dose on Mon02/29/16 at 0800 aspirin EC tablet 81 mg (CANCELED) 0738 (Given - Provider: Thelma Lawrence RN) 81 mg, Oral, DAILY, First dose on Mon02/29/16 at 0800 cyanocobalamin (vitamin B-12) tablet 1,000 mcg (CANCELED) 0739 (Given - Provider: Thelma Lawrence RN) 1,000 mcg, Oral, DAILY, First dose on Mon02/29/16 at 0800 furosemide (LASIX) tablet 20 mg (CANCELED) 0738 (Given - Provider: Thelma Lawrence RN) 20 mg, Oral, EVERY MORNING, First dose on Mon02/29/16 at 0800 gabapentin (NEURONTIN) tablet 1,200 mg (CANCELED) 2228 (Given - Provider: Stacey Gray, PIO) 1,200 mg, Oral, EVERY EVENING, First dose on Mon02/28/16 at 2140 gabapentin (NEURONTIN) tablet 600 mg (CANCELED) 0738 (Given - Provider: Thelma Lawrence RN) 600 mg, Oral, 2 TIMES DAILY, First dose on Mon02/29/16 at 0800 iopamidol (ISOVUE-370) 76% solution 500 mL (COMPLETED) 1816 (Given - Provider: Sandee Seals - Comment: bulk) 500 mL, Intravenous, ONCE, 02/28/16 at 1805, For 1 dose lisinopril (PRINIVIL,ZESTRIL) tablet 20 mg (CANCELED) 2227 (Given - Provider: Stacey Gray RN) 07 (Given - Provider: Thelma Lawrence, PIO) 20 mg, Oral, 2 TIMES DAILY, First dose on 02/28/16 at 2108 rOPINIRole (REQUIP) tablet 2 mg (CANCELED) 2226 (Given - Provider: Stacey Gray RN) 2 mg, Oral, AT BEDTIME, First dose on 02/28/16 at 2200 simvastatin (ZOCOR) tablet 20 mg (CANCELED) 737 (Given - Provider: Thelma Lawrence RN) 20 mg, Oral, EVERY MORNING, First dose on Mon02/29/16 at 0800 sodium chloride (PF) 0.9% PF flush 3 mL (CANCELED) 2228 (Given - Provider: Stacey Gray RN) 0555 (Not Given - Provider: Gina Brasher RN - Reason: IV Infusing) 3 mL, Intracatheter, EVERY 8 HOURS, Firs t dose on 02/28/16 at 210, And Q1H PRN, to lock peripheral IV dormant line. warfarin (COUMADIN) tablet 7.5 mg (COMPLETED) 2227 (Given - Provider: Stacey Gray RN) 7.5 mg, Oral, ONCE, 02/28/16 at 2130, For 1 dose PRN Medication Order 02/27/2016 02/28/2016 02/29/2016 acetaminophen (TYLENOL) tablet 975 mg (CANCELED) 2121 (Given - Provider: Stacey Gray RN) 975 mg, Oral, EVERY 6 HOURS PRN, mild pa in, Starting 02/28/16 at 210, Alternate ibuprofen (if ordered) with acetaminophen. Maximum acetaminophen dose from all sources = 75 mg/kg/day not to exceed 4 grams/day. oxyCODONE (ROXICODONE) immediate release tablet 5-10 mg (CANCELE D) 50 (Given - Provider: Adrianna Velázquez LPN) 5-10 mg, Oral, EVERY 3 HOURS PRN, modera te to severe pain, Starting 02/28/16 at 2107, If age greater than 65 use lower dose for first time use. documented in this encounter Care Teams User Interface Engineer Relationship Specialty Start Date End Date Sindy Moses MD PCP - General 02/28/16 05/04/16 [place] [id number] documented as of this encounter
--- OUTSIDE RECORDS SUMMARY | 2022-07-25 16:06 | XMS_ITS | Encounter Summary ---
:1950 Author Organization [place] Address [facility]ly [facility] [place] [address] Care Team Providers Name Role Phone Abbe Charles MD Primary Care Provider Reason for Visit Reason Comments Loop Recorder Implant Check Remote Transmission Encounter Details Date Type Department Care Team Description 02/01/2016 Office Visit [facility] Heart Enco unter for loop Clinic [place] recorder check (Primary [address] [place] [address]) [address] [place] [address] Social History Tobacco Use Types Packs/Day Years Used Date Never Smoker Smokeless Tobacco: Never Used Alcohol Use Standard Drinks/Week Comments Yes 0.8 (1 standard drink = 0.6 oz pure alco hol) Sex Assigned at Date Recorded Not on file documented as of this encounter Progress Notes Ethan Chance RN - 02/03/2016 8:31 AM CDT Medtronic Linq Loop Recorder Remote 28 Pauses and 4 AF episodes detected. Recorded strips show undersensed R waves, AF episodes have been addressed previously (EGM shows regualr rate of 80 BPM with occasional QRS complex undersensed). Nopatient activated episodes detected. Battery is OK. Patient informed of findings. Annual check scheduled. YYanHardeep documented in this encounter Plan of Treatment Not on filedocumented as of this encounter Procedures Procedure Name Priority Date/Time Associated Diagnosis Comme nts C ICM/SQ CARDIAC RYTHYM Routine 02/03/2016 8:30 AM CDT Encount er for loop MONITOR REMOTE TECH recorder check SERV ZZC ICM DEVICE Routine 02/01/2016 Encounter for loop INTERROGAT REMOTE recorder check documented in this encounter Results C ICM DEVICE INTERROGAT REMOTE (47826) (02/01/2016) Narrative This result has an attachment that is no t available. Austyn Avalos MD PROCEDURES documented in this encounter Visit Diagnoses Diagnosis Encounter for loop recorder check - Prim tatyana documented in this encounter Care Teams Last Puller Relationship Specialty Start Date End Date Abbe Charles MD PCP - General Family Practice 07/17/14 02/27/[address] [address] documented as of this encounter
--- OUTSIDE RECORDS SUMMARY | 2022-07-25 16:06 | XMS_ITS | Encounter Summary ---
:1950 Author Organization [place] Address [facility] [place] [address] Care Team Providers Name Role Phone Abbe Charles MD Primary Care Provider Reason for Visit Reason Comments Loop Recorder Implant Check COURTESY CHECK/NO CHARGE/ ALERT Encounter Details Date Type Department Care Team Description 04/07/[address] [facility] Syncope (Primary Dx) [address] [place] [address] Social History Tobacco Use Types Packs/Day Years Used Date Never Smoker Smokeless Tobacco: Never Used Alcohol Use Standard Drinks/Week Comments Yes 0.8 (1 standard drink = 0.6 oz pure alco hol) Sex Assigned at Date Recorded Not on file documented as of this encounter Progress Notes Lizet Santoyo RN - 04/07/2015 3:04 PM CDT COURTESY CHECK/NO CHARGE: Medtronic remote LINQ alert for pause. This tracing shows SR with no nnamdi events or pause noted. Remote transmission scheduled for 05-04-15 as routine. Plan as scheduled. Zohreh documented in this encounter Plan of Treatment Not on filedocumented as of this encounter Procedures Procedure Name Priority Date/Time Associated Diagnosis Comme nts HC INTERR DEVICE EVAL Routine 05/12/2015 Syncope IIMPLANT MONITOR, ICD C ICM/SQ CARDIAC RYTHYM Routine 04/07/2015 3:06 PM CDT Syncope MONITOR REMOTE TECH SERV documented in this encounter Results ICM DEVICE EVAL (05/12/2015) Narrative This result has an attachment that is no t available. Naomie Boyd MD PROCEDURES documented in this encounter Visit Diagnoses Diagnosis Syncope - Primary Syncope and collapse documented in this encounter Care Teams Back Shoe Worker Relationship Specialty Start Date End Date Abbe Charles MD PCP - General Family Practice 07/17/14 02/27/[address] [address] documented as of this encounter
--- OUTSIDE RECORDS SUMMARY | 2022-07-25 16:06 | XMS_ITS | Encounter Summary ---
:1950 Author Organization [place] Address On license of [facility]0 [facility] [place] [address] Care Team Providers Name Role Phone Radha Montoya RN Unavailable Abbe Charles MD Primary Care Provider Reason for Visit Reason Comments Loop Recorder Implant Check Encounter Details Date Type Department Care Team Description 08/04/2014 Office Visit [facility] Heart Enco unter for loop Clinic [place] recorder check (Primary [address] [facility]) [address] [place] [address] Social History Tobacco Use Types Packs/Day Years Used Date Never Smoker Smokeless Tobacco: Never Used Alcohol Use Standard Drinks/Week Comments Yes 0.8 (1 standard drink = 0.6 oz pure alco hol) Sex Assigned at Date Recorded Not on file documented as of this encounter Progress Notes Raquel Gamino, PIO, RN - 08/04/2014 11:22 AM CDT Reveal linq remote loop recorder check. 1 episode stored as AF. It is SR with a 'noisy' signal detected as irregular VS events. It was not afib. No VT/VF/nnamdi or asystole. Rhythm is SR.Called and reviewed results and next f/u in Oct. documented in this encounter Plan of Treatment Not on filedocumented as of this encounter Procedures Procedure Name Priority Date/Time Associated Diagnosis Comme nts C ICM/SQ CARDIAC RYTHYM Routine 08/04/2014 Encounter for loo p recorder MONITOR REMOTE TECH SERV check documented in this encounter Results ICM/ILR REMOTE TECH SERV (08/04/2014) Narrative This result has an attachment that is no t available. Christin Rayo MD PROCEDURES documented in this encounter Visit Diagnoses Diagnosis Encounter for loop recorder check - Prim tatyana documented in this encounter Care Teams Mold Filler Plastic Dolls Relationship Specialty Start Date End Date Abbe Charles MD PCP - General Family Practice 07/17/14 02/27/[address] [phone] Radha Montoya, PIO Clinic Safety Engineer Pressure Vessels Nurse 04/15/14 10/26/14 documented as of this encounter
--- OUTSIDE RECORDS SUMMARY | 2022-07-25 16:07 | XMS_ITS | Encounter Summary ---
:1950 Author Organization [place] Address [address] [place] [address] Care Team Providers Name Role Phone Bill Thao MD Primary Care Provider [phone] Radha Montoya RN Unavailable Reason for Visit Reason Comments Anticoagulation Encounter Details Date Type Department Care Team Description 05/09/2014 Allied Health/Nurse [facility] Clinic Anticoagulation Visit [address] [address] Social History Tobacco Use Types Packs/Day Years Used Date Never Smoker Smokeless Tobacco: Never Used Alcohol Use Standard Drinks/Week Comments No 0 (1 standard drink = 0.6 oz pure alcoho l) Sex Assigned at Date Recorded Not on file documented as of this encounter Progress Notes Layne [place]as RN - 05/09/2014 8:24 AM CDT ANTICOAGULATION FOLLOW-UP CLINIC VISIT Patient Name: Damon Mccall Date: 05/09/2014 Contact Type: Face to Face SUBJECTIVE: Bleeding Signs/Symptoms: None Thromboembolic Signs/Symptoms: None Medication Changes: No Dietary Changes: No, ate at least 3 servings of greens this week. Bacterial/Viral Infection: No Missed Coumadin Doses: None Other Concerns: No ASSESSMENT/PLAN: See: ANTICOAGULATION Q[facility] flow sheet. [facility] ANTICOAGULATION CLINIC documented in this encounter Plan of Treatment Not on filedocumented as of this encounter Procedures Procedure Name Priority Date/Time Associated Diagnosis Comme nts INR POINT OF CARE Routine 05/09/2014 Hand Etcher (Current) Use Of Results for this Anticoagulants procedure are in the results section . documented in this encounter Results (ABNORMAL) INR point of care (05/09/2014) P athologist Signature INR Point of 3.3 (A) 0.86 - [facility] 1.14 LAB Specimen (Source) Anatomical Location Collection Method / Collectio n Time Received Time / Laterality Volume 05/09/2014 Bill Thao MD LAB - BLOOD ORDERABLES Performing Organization Address City/State/ZIP Code Phon e Number [facility] documented in this encounter Visit Diagnoses Diagnosis manager intermediate (current) use of anticoagulant s - Primary Long-term (current) use of anticoagulant s documented in this encounter Care Teams Bitumen Plant Operator Relationship Specialty Start Date End Date Bill Thao, PCP - General Family Practice 04/14/14 07/16/14 [address] [place] [address] Radha Montoya, PIO Clinic Still Pump Operator Nurse 04/15/14 10/26/14 documented as of this encounter
--- OUTSIDE RECORDS SUMMARY | 2022-07-25 16:07 | XMS_ITS | Encounter Summary ---
:1950 Author Organization [place] Address [facility] [place] [address] Care Team Providers Name Role Phone Bill Thao MD Primary Care Provider Radha Montoya RN Unavailable Reason for Visit Reason Comments Clinic Care Coordination - Follow-up clinic care coord ination RN Care Team Encounter Details Date Type Department Care Team Description 06/10/2014 Care Coordination [facility] Bill Thao Care Care Coordination MD [place] Coordination - [address] [place] [address] [facility] Follow-up ([place], [place] [address] ); Care Team [address] Social History Tobacco Use Types Packs/Day Years Used Date Never Smoker Smokeless Tobacco: Never Used Alcohol Use Standard Drinks/Week Comments No 0 (1 standard drink = 0.6 oz pure alcoho l) Sex Assigned at Date Recorded Not on file documented as of this encounter Progress Notes Radha Montoya RN - 06/10/2014 3:25 PM CDT Unable to contact letter mailed to patient on 05/19/14, no return call from patient. He had no care coordination needs at last outreach. No further care coordination at this time, please refer patient in the future if needs arise Radha Montoya Grommet Man PIO [facility] [phone] documented in this encounter Plan of Treatment Not on filedocumented as of this encounter Visit Diagnoses Not on filedocumented in this encounter Care Teams Lead Electrical Engineer Relationship Specialty Start Date End Date Bill Thao, PCP - General Family Practice 04/14/14 07/16/14 [address] [place] [address] Radha Montoya, PIO Clinic Grommet Man Nurse 04/15/14 10/26/14 documented as of this encounter
--- OUTSIDE RECORDS SUMMARY | 2022-07-25 16:07 | XMS_ITS | Encounter Summary ---
:1950 Author Organization [place] Address [address] [place] [address]. [place] [address] Care Team Providers Name Role Phone Bill Thao MD Primary Care Provider [phone] Radha Montoya RN Unavailable Reason for Visit Reason Onset Date Comments Forms 04/28/2014 FMLA forms Encounter Details Date Type Department Care Team Description 04/28/2014 Telephone [facility] Bill Thao Forms (FMLA forms) BurbankJosué Palomo MD [address] [place] [id number] (Wo rk) Social History Tobacco Use Types Packs/Day Years Used Date Never Smoker Smokeless Tobacco: Never Used Alcohol Use Standard Drinks/Week Comments No 0 (1 standard drink = 0.6 oz pure alcoho l) Sex Assigned at Date Recorded Not on file documented as of this encounter Miscellaneous Notes Telephone Encounter - Sonia Hidalgo - 05/05/2014 1:38 PM CDT Placed in mail, copy to abstracting Sonia Hidalgo/Compressor Operator Adjuster Telephone Encounter - Sonia Hidalgo - 04/30/2014 2:30 PM CDT In purple folder at [facility] Sonia Hidalgo/Compressor Operator Adjuster Telephone Encounter - Shaneka Trevino - 04/28/2014 3:21 PM CDT FMLA forms to sign documented in this encounter Plan of Treatment Not on filedocumented as of this encounter Visit Diagnoses Not on filedocumented in this encounter Care Teams Manager Communication Relationship Specialty Start Date End Date Bill Thao, PCP - General Family Practice 04/14/14 07/16/14 [address] [place] [address] Radha Montoya, PIO Clinic Antisubmarine Weapons Officer Nurse 04/15/14 10/26/14 documented as of this encounter
--- OUTSIDE RECORDS SUMMARY | 2022-07-25 16:07 | XMS_ITS | Encounter Summary ---
:1950 Author Organization [place] Address [facility] [place] [address] Care Team Providers Name Role Phone Tristan Weller MD Primary Care Provider [phone] Radha Montoya RN Unavailable Reason for Visit Reason Comments Hospital F/U Encounter Details Date Type Department Care Team Description 04/21/2014 Office Visit [facility] Tristan Weller nonconvulsive epilepsy (H) (Primary Dx); Clinic GirardJosué Palomo MD HTN (hypertension); [address] [place] [address] Vitamin B12 deficiency (non anaemic); [place], [place] Hypogly cemia [phone] Social History Tobacco Use Types Packs/Day Years Used Date Never Smoker Smokeless Tobacco: Never Used Alcohol Use Standard Drinks/Week Comments No 0 (1 standard drink = 0.6 oz pure alcoho l) Sex Assigned at Date Recorded Not on file documented as of this encounter Last Filed Vital Signs Vital Sign Reading Time Taken Comments Blood Pressure 118/66 04/21/2014 4:17 PM CDT Pulse 56 04/21/2014 4:17 PM CDT Temperature 36.4 ??C (97.6 ??F) 04/21/2014 4:17 PM CDT Respiratory Rate 12 04/21/2014 4:17 PM CDT Oxygen Saturation - - Inhaled Oxygen Concentration - - Weight 119.7 kg (264 lb) 04/21/2014 4:17 PM CDT Height 185.4 cm (6' 1) 04/21/2014 4:17 PM CDT Body Mass Index 34.83 04/21/2014 4:17 PM CDT documented in this encounter Progress Notes Tristan Weller MD - 04/21/2014 4:17 PM CDT SUBJECTIVE: Damon Mccall is a 64 year old male who presents to clinic today for the following health issues: Hospital Follow-up Visit: Hospital: [facility] Date of Admission: 04/11/2014 Date of Discharge: 04/13/2014 Reason(s) for Admission: TIA, aphasia Problems taking medications regularly: None Medication changes since discharge: None Problems adhering to non-medication therapy: None Summary of hospitalization: [facility] discharge summary reviewed Diagnostic Tests/Treatments reviewed. Follow up needed: none Other Healthcare Providers Involved in Patient???s Care: None Update since discharge: improved. He's had good days and bad days, his spells are not yet diagnosed. He and his understandably have lots of questions and concerns Post Discharge Medication Reconciliation: discharge medications reconciled, continue medications without change. Plan of care communicated with patient and family Coding guidelines for this visit: Type of Medical Decision Making Ibtd-[id number] Visit within 7 Days of discharge Tmtw-yz-[id number] Visit within 14 days of discharge Moderate Complexity [id number] High Complexity [id number] SUBJECTIVE: CC: Damon Mccall is a 64 year old male who presents for recurrent dizzy/absence spells, seizure vs tia HPI: I went over all of the available studies with them, He's feeling fine today but he needs to notdrive until control is established. I requested a drug level on his keppra. PROBLEM LIST: Patient Active Problem List Diagnosis ??? TIA on medication ??? Seizure ??? Health Custodial PAST MEDICAL HISTORY: Past Medical History Diagnosis Date ??? Unspecified cerebral artery occlusion with cerebral infarction ??? Hypertension ??? Neuropathy ??? TIA (transient ischaemic attack) PAST SURGICAL HISTORY: Past Surgical History Procedure Laterality Date ??? Gi surgery ??? Resection abdominal perineal ??? Colonoscopy ??? Colonoscopy 10/17/2012 Procedure: COLONOSCOPY; Colonoscopy; Surgeon: Damon Jaimes MD; Location: GI CURRENT MEDICATIONS: Current Outpatient Prescriptions Medication Sig Dispense Refill ??? amLODIPine (NORVASC) 5 MG tablet Take 1 tablet (5 mg) by mouth daily 30 tablet 1 ??? cyanocobalamin [address] 2 tablets (1,000 mcg) under the tongue daily 30 tablet 0 ??? aspirin 81 MG tablet Take 1 tablet (81 mg) by mouth daily Stop taking aspirin while on SUBQ lovenox injections. When lovenox is stopped start ababy aspirin PO daily 30 tablet OTC ??? enoxaparin (LOVENOX) 120 MG/0.8ML SOLN Inject 0.8 mLs (120 mg) Subcutaneous every 12 hours 10 Syringe 0 ??? levETIRAcetam 1000 MG TABS Take 1,000 mg by mouth 2 times daily 60 tablet 3 ??? warfarin (COUMADIN) 2.5 MG tablet Take 1 tablet (2.5 mg) by mouth daily Take 10mg po [facility] INR tomorrow 60 tablet 2 ??? INDOMETHACIN PO Take 25 mg by mouth 3 times daily (with meals) ??? ATENOLOL PO Take 100 mg by [...] tablet Take 1 tablet by mouth daily. FAMILY HISTORY: Family History Problem Relation Age of Onset ??? Cancer Mother ??? C.A.D. Father ??? Diabetes Sister HEALTH MAINTENANCE: REVIEW OF OUTSIDE RECORDS: NO REVIEW OF SYSTEMS: C: NEGATIVE for fever, chills E: NEGATIVE for vision changes R: NEGATIVE for significant cough or SOB CV: NEGATIVE for chest pain, palpitations GI: NEGATIVE for nausea, abdominal pain, heartburn, or change in bowel habits : NEGATIVE for frequency, dysuria, or hematuria M: NEGATIVE for significant arthralgias or myalgia N: NEGATIVE for weakness, dizziness or paresthesias or headache NVS:no headache or balance issus INTEG:no moles or new rashes LYMPH:no nodes or night sweats EXAM: BP 118/66 Pulse 56 Temp(Src) 97.6 ??F (36.4 ??C) (Oral) Resp 12 Ht 6' 1 (1.854 m) Wt 264 lb (119.75 kg) BMI 34.84 kg/m2 GENERAL APPEARANCE: healthy, alert and no distress EXAM: GENERAL APPEARANCE: healthy, alert and no distress EYES: EOMI, PERRL HENT: ear canals and TM's normal and nose and mouth without ulcers or lesions RESP: lungs clear to auscultation - no rales, rhonchi or wheezes CV: regular rates and rhythm, normal S1 S2, no S3 or S4 and no murmur, click or rub - ABDOMEN: soft, nontender, no HSM or masses and bowel sounds normal BACK:no tenderness or pain on straight let raise ASSESSMENT/PLAN 1. Generalized nonconvulsive epilepsy 2. HTN (hypertension) 3. Vitamin B12 deficiency (non anaemic) Report drug levels to Damon and to Neurology I have discussed with patient the risks, benefits, medications, treatment options and modalities. I have instructed the patient to call or schedule a follow-up appointment if any problems or failureto improve. documented in this encounter Nursing Notes Loly Roy CMA - 04/21/2014 4:26 PM CDT Chief Complaint Patient presents with ??? Hospital F/U Initial BP 118/66 Pulse 56 Temp(Src) 97.6 ??F (36.4 ??C) (Oral) Resp 12 Ht 6' 1 (1.854 m) Wt 264 lb (119.75 kg) BMI 34.84 kg/m2 Estimated body mass index is 34.84 kg/(m^2) as calculated from the following: Height as of this encounter: 6' 1 (1.854 m). Weight as of this encounter: 264 lb (119.75 kg). BP completed using cuff size: large RA Health Maintenance reviewed. Loly Roy MA documented in this encounter Miscellaneous Notes Addendum Note - Tristan Weller MD - 04/23/2014 5:33 PM CDT Addended by: TRISTAN WELLER on: 04/23/2014 05:33 PM Modules accepted: Orders documented in this encounter Plan of Treatment Not on filedocumented as of this encounter Procedures Procedure Name Priority Date/Time Associated Diagnosis Comme nts LEVETIRACETAM LEVEL Routine 04/21/2014 4:59 PM Generalized Re sults for this CDT nonconvulsive procedure are in epilepsy (H) the results section. documented in this encounter Results Levetiracetam level (04/21/2014 4:59 PM CDT) Analysis Performed At Patho logist Time Signature Levetiracetam 18.7 [facility] Comment: Unit: ug/ml (Note) ?Expected steady state trough concentrations in ?patients receiving rec ommended daily dosages: ?5 - 45 ug/mL. ?Toxic range has not be en established. Analysis performed by [employer] [place] [address] Specimen Anatomical Collection Method Collection Time Receive d Time (Source) Location / / Volume Laterality Blood specimen 04/21/2014 4:59 PM 014 5:00 (specimen) CDT PM CDT Tristan Weller MD LAB - BLOOD ORDERABLES Performing Organization Address City/State/ZIP Code Phon e Number [facility] [address] [place] [address] documented in this encounter Visit Diagnoses Diagnosis Generalized nonconvulsive epilepsy (H) - Primary Generalized nonconvulsive epilepsy witho ut mention of intractable epilepsy HTN (hypertension) Unspecified essential hypertension Vitamin B12 deficiency (non anaemic) Other B-complex deficiencies Hypoglycemia Hypoglycemia, unspecified documented in this encounter Care Teams Gang Head Saw Operator Relationship Specialty Start Date End Date Tristan Weller, PCP - General Family Practice 04/14/14 07/16/14 [address] [place] [address] Radha Montoya, PIO Clinic Drugless Physician Nurse 04/15/14 10/26/14 documented as of this encounter
--- OUTSIDE RECORDS SUMMARY | 2022-07-25 16:07 | XMS_ITS | Encounter Summary ---
:1950 Author Organization [place] Address [address] [place] [address] Care Team Providers Name Role Phone Bill Thao MD Primary Care Provider Radha Montoya RN Unavailable Reason for Visit Reason Comments Anticoagulation Encounter Details Date Type Department Care Team Description 04/21/2014 Allied Health/Nurse [facility] Clinic Anticoagulation Visit [address] [address] Social History Tobacco Use Types Packs/Day Years Used Date Never Smoker Smokeless Tobacco: Never Used Alcohol Use Standard Drinks/Week Comments No 0 (1 standard drink = 0.6 oz pure alcoho l) Sex Assigned at Date Recorded Not on file documented as of this encounter Progress Notes Sindy Smith RN - 04/21/2014 4:16 PM CDT ANTICOAGULATION FOLLOW-UP CLINIC VISIT Patient Name: Damon Mccall Date: 04/21/2014 Contact Type: Face to Face SUBJECTIVE: Bleeding [...] Comme nts INR POINT OF CARE Routine 04/21/2014 terminal manager (current) use of Results for this anticoagulants procedure are in the results section . documented in this encounter Results (ABNORMAL) INR point of care (04/21/2014) P athologist Signature INR Point of 2.5 (A) 0.86 - [facility] Care 1.14 LAB Specimen (Source) Anatomical Location Collection Method / Collectio n Time Received Time / Laterality Volume 04/21/2014 Bill Thao MD LAB - BLOOD ORDERABLES Performing Organization Address City/State/ZIP Code Phon e Number [facility] documented in this encounter Visit Diagnoses Diagnosis halfway (current) use of anticoagulant s - Primary Long-term (current) use of anticoagulant s documented in this encounter Care Teams Typer Relationship Specialty Start Date End Date Bill Thao, PCP - General Family Practice 04/14/14 07/16/14 [address] [place] [address] Radha Montoya, PIO Clinic Logistics Research Engineer Nurse 04/15/14 10/26/14 documented as of this encounter
--- OUTSIDE RECORDS SUMMARY | 2022-07-25 16:07 | XMS_ITS | Encounter Summary ---
:1950 Author Organization [place] Address [address] [place] [address]. [place] [address] Care Team Providers Name Role Phone Bill Thao MD Primary Care Provider Radha Montoya RN Unavailable Reason for Visit Reason Comments Arthritis Encounter Details Date Type Department Care Team Description 05/16/2014 Office Visit [facility] Bill Thao Acute gouty arthritis (Primary Dx); Clinic Chanell Palomo MD Hypertension; [address] [facility] [id number] [place] [address] [place] [address] [id number] Social History Tobacco Use Types Packs/Day Years Used Date Never Smoker Smokeless Tobacco: Never Used Alcohol Use Standard Drinks/Week Comments No 0 (1 standard drink = 0.6 oz pure alcoho l) Sex Assigned at Date Recorded Not on file documented as of this encounter Last Filed Vital Signs Vital Sign Reading Time Taken Comments Blood Pressure 120/76 05/16/2014 9:30 AM CDT Pulse 60 05/16/2014 9:30 AM CDT Temperature 36.4 ??C (97.6 ??F) 05/16/2014 9:30 AM CDT Respiratory Rate 18 05/16/2014 9:30 AM CDT Oxygen Saturation - - Inhaled Oxygen Concentration - - Weight 122 kg (269 lb) 05/16/2014 9:30 AM CDT Height - - Body Mass Index 35.49 04/21/2014 4:17 PM CDT documented in this encounter Progress Notes Bill Thao MD - 05/16/2014 9:24 AM CDT SUBJECTIVE: Damon Mccall is a 64 year old male who presents to clinic today for the following health issues: Gout Duration: x1 week Description Location: big toe - left Joint Swelling: YES Redness: YES Pain intensity: moderate Accompanying signs and symptoms: None History Previous history of gout: YES Trauma to the area: no Precipitating factors: Alcohol usage: Occassional Diuretic use: no Recent illness: YES- stroke the end of February Therapies tried and outcome: None Problem list and histories reviewed & adjusted, as indicated. Additional history: as documented Past Medical History Diagnosis Date ??? Unspecified cerebral artery occlusion with cerebral infarction ??? Hypertension ??? Neuropathy ??? TIA (transient ischaemic attack) Past Surgical History Procedure Laterality Date ??? Gi surgery ??? Resection abdominal perineal ??? Colonoscopy ??? Colonoscopy 10/17/2012 Procedure: COLONOSCOPY; Colonoscopy; Surgeon: Damon Jaimes MD; Location: [facility] Family History Problem Relation Age of Onset ??? Cancer Mother ??? C.A.D. Father ??? Diabetes Sister History Substance Use Topics ??? Smoking status: Never Smoker ??? Smokeless tobacco: Never Used ??? Alcohol Use: No No recent spells, Has had a left foot podagra episode. REVIEW OF SYSTEMS Generally has been finally started feeling well until this episode. No problems with vision, hearing, dental or neck pain.Has has hph airborne or ingestion allergy No chest pain, palpitations, dyspnea, change in bowel habits, blood in stool or dyspepsia. Worked up for spells, tia vs seizures: sees Neurology, No rashes, changing moles, weakness, lassitude or back problems. No chronic issues . No dysuria On exam the vital signs are stable Weight is stable Eyes show meagan No neck masses or thyromegaly.Ear nose and throat shows normal No bruits, murmers, rubs or extrasounds. No cardiomegaly or chest wall tenderness. Lungs clear, no abdominal masses or organomegaly. No CVA tenderness. Skin eval no actinic No hernias, good range of motion neck, back and extremities. No abnormal skin lesions. Normal genitalia. Good peripheral pulses. No adenopathy. Normal gait and stance. Neck is supple. Back exam shows neck range of motion full except for lateral flexion (274.01) Acute gouty arthritis (primary encounter diagnosis) Comment: Plan: predniSONE (DELTASONE) 20 MG tablet mtp 1 gout (401.9) Hypertension Comment: at goal Plan: same meds (435.9) TIA on medication Comment: Plan: Neuro following Patient never a smoker. No problems with significant headaches. documented in this encounter Nursing Notes Janet Stephenson CMA - 05/16/2014 9:32 AM CDT Chief Complaint Patient presents with ??? Arthritis Initial BP 120/76 Pulse 60 Temp(Src) 97.6 ??F (36.4 ??C) (Oral) Resp 18 Wt 269 lb (122.018 kg) BMI 35.5 kg/m2 Estimated body mass index is 35.5 kg/(m^2) as calculated from the following: Height as of 04/21/14: 6' 1 (1.854 m). Weight as of this encounter: 269 lb (122.018 kg).. BP completed using cuff size large - RA. Janet Stephenson, Ruching Machine Operator documented in this encounter Plan of Treatment Not on filedocumented as of this encounter Visit Diagnoses Diagnosis Acute gouty arthritis - Primary Acute gouty arthropathy Hypertension Unspecified essential hypertension TIA on medication Unspecified transient cerebral ischemia documented in this encounter Care Teams School Childcare Attendant Relationship Specialty Start Date End Date Bill Thao, PCP - General Family Practice 04/14/14 07/16/14 [address] [place] [address] Radha Montoya, PIO Clinic Production Maintenance Technician Nurse 04/15/14 10/26/14 documented as of this encounter
--- OUTSIDE RECORDS SUMMARY | 2022-07-25 16:07 | XMS_ITS | Encounter Summary ---
:1950 Author Organization [place] Address [facility] [place] [address] Care Team Providers Name Role Phone Bill Thao MD Primary Care Provider Radha Montoya RN Unavailable Reason for Visit Reason Comments Anticoagulation Encounter Details Date Type Department Care Team Description 04/17/2014 Allied Health/Nurse [facility] Clinic Anticoagulation Visit [address] [address] Social History Tobacco Use Types Packs/Day Years Used Date Never Smoker Smokeless Tobacco: Never Used Alcohol Use Standard Drinks/Week Comments No 0 (1 standard drink = 0.6 oz pure alcoho l) Sex Assigned at Date Recorded Not on file documented as of this encounter Progress Notes Sindy Smith RN - 04/17/2014 3:04 PM CDT ANTICOAGULATION INITIAL CLINIC VISIT Patient Name: Damon Mccall Date: 04/17/2014 Referred by: Bill Thao MD Contact Type: Face to Face SUBJECTIVE: Coumadin education was completed today. Topics covered include: -Introduction to coumadin -Proper Administration -INR Testing -Sign/Symptoms of Bleeding -Signs/Symptoms of Clot Formation or Stroke -Dietary Intake of Vitamin K -Drug Interactions -Anticoagulation Identification (bracelet, necklace or wallet card) -Future Surgery -Effects of Alcohol, Tobacco, and Exercise on Coumadin Coumadin Education Booklet and Coumadin Identification Wallet Card were given to the patient. Bleeding Signs/Symptoms: None Thromboembolic Signs/Symptoms: None Medication Changes: No Dietary Changes: 3 svgs per week Bacterial/Viral Infection: No Missed Coumadin Doses: None Other Concerns: No ASSESSMENT/PLAN: See: ANTICOAGULATION QIC flowsheet. All patient education completed as documented above, patient and present. All questions answered. [facility]INIC documented in this encounter Plan of Treatment Not on filedocumented as of this encounter Procedures Procedure Name Priority Date/Time Associated Diagnosis Comme nts INR POINT OF CARE Routine 04/17/2014 snf (current) use of Results for this anticoagulants procedure are in the results section . 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
--- OUTSIDE RECORDS SUMMARY | 2022-07-25 16:07 | XMS_ITS | Encounter Summary ---
:1950 Author Organization [place] Address [address] [place] [address] Care Team Providers Name Role Phone Bill Thao MD Primary Care Provider Radha Montoya RN Unavailable Reason for Visit Reason Onset Date Comments Pt. Information/instruction 04/17/2014 Encounter Details Date Type Department Care Team Description 04/17/2014 Telephone [facility] Heart Raquel Gamino Pt . Clinic Daphnie Bravo, RN, RN Information/instruction [address] [facility] [address] [place] [address] [address] [facility] [phone] [address] [place] [address] Social History Tobacco Use Types Packs/Day Years Used Date Never Smoker Smokeless Tobacco: Never Used Alcohol Use Standard Drinks/Week Comments No 0 (1 standard drink = 0.6 oz pure alcoho l) Sex Assigned at Date Recorded Not on file documented as of this encounter Miscellaneous Notes Telephone Encounter - Raquel Gamino, RN, RN - 04/17/2014 4:18 PM CDT Called pt and left message asking if he sent transmission from [employer] monitor. We received an reading due to a reported 3 sec pause. It was SR with undersensing, so QRS events were not sensed. It was not a pause. Requested he call back to let us know if he sent the event or if it was automatic. documented in this encounter Plan of Treatment Not on filedocumented as of this encounter Visit Diagnoses Not on filedocumented in this encounter Care Teams Dictating Transcribing Machine Servicer Relationship Specialty Start Date End Date Bill Thao, PCP - General Family Practice 04/14/14 07/16/14 [address] [place] [address] Radha Montoya, PIO Clinic Tube Dispatcher Nurse 04/15/14 10/26/14 documented as of this encounter
--- OUTSIDE RECORDS SUMMARY | 2022-07-25 16:07 | XMS_ITS | Encounter Summary ---
:1950 Author Organization [place] Address [facility] [place] [address] Care Team Providers Name Role Phone Bill Thao MD Primary Care Provider Reason for Referral Specialty Diagnoses / Procedures Referred By Contact [place] [address] [place], [place] [address] Referral ID Status Reason Start Date Expiration Date Visits Requ ested Visits Authorized Scheduling Instructions ANTICOAGULATION CLINIC COLLABORATIVE PRA CTICE AGREEMENT The following represents a collaborative practice agreement among the physicians of the Clinic and staff of the Anticoagulat ion Clinic Service ([facility]) Physicians shall: 1. Refer patients requiring anticoagulat ion to a specialty service staffed by personnel of Pharmacy Services and super vised by Clinic physicians. 2. Respond to questions and referrals fr pharmacy staff regarding delinquent or difficult patients. 3. Inform the [facility] staff when a new patie nt is to be started on the service in a timely manner including the indication f or warfarin therapy and any variation from the protocol. Anticoagulation service staff shall: 1. Conduct an education program for each patient. 2. Assess each patient for their ability to comply with therapy and their understanding of anticoagulation therapy . 3. Order all doses and dose changes base d on a mutually agreed protocol. 4. Schedule patients for follow-up labor atory and consultation visits. 5. Assess each patient's INR and provide appropriate direction. 6. At each visit, assess each patient fo r his or her risk of adverse or sub-therapeutic effects including at freda st the following: Has the patient experienced any bleeding since the last INR Has the patient had any bacterial or vir al infections since the last INR Have any medications been added or cardona ed or stopped since the last INR Has the patient had any symptoms of thro mboemboli since the last INR Has the patient had any dietary changes or changes in eating habits since the last INR Has the patient missed any warfarin/coum martha doses since the last INR Has the patient had a fever since the la st INR Has the patient had unusual diarrhea sin ce the last INR 7. Prepare new prescriptions and authori ze refills for anticoagulants. 8. Serve as a resource to and answer que stions from patients and staff. 9. Identify delinquent patients and init iate appropriate steps to ensure adequate follow-up and monitoring. 10. Refer delinquent patients and other problem situations to a physician for direction. 11. Initiate vitamin K therapy when cate cated. Reason for Visit Reason Onset Date Comments Anticoagulation 04/14/2014 INR referral Encounter Details Date Type Department Care Team Description 04/14/2014 Telephone [facility] Bill Thao Antico agulation ( INR Clinic GreenwoodJosué Palomo MD referral) [address] [place] [phone] [phone] Social History Tobacco Use Types Packs/Day Years Used Date Never Smoker Smokeless Tobacco: Never Used Alcohol Use Standard Drinks/Week Comments No 0 (1 standard drink = 0.6 oz pure alcoho l) Sex Assigned at Date Recorded Not on file documented as of this encounter Miscellaneous Notes Telephone Encounter - Layne Salas RN - 04/14/2014 2:59 PM CDT New insurance and medicare reimbursement rules require that all of our INR patients have an INR Clinic referral order in [facility], and that it be renewed annually. We have entered this initial order for you and your signature is required once you review it. Pleaseroute [place] P [phone] (do not close the encounter). We will then place a healthmaintenance alert on this patient for yearly tracking purposes. Thanks in advance for your help. Sindy Smith, RN Layne Salas, RN [phone] documented in this encounter Plan of Treatment Scheduled Referrals Name Type Priority Associated Diagnoses Order S chedule INR CLINIC REFERRAL Referral Routine TIA on medication Ord ered: 04/14/2014 documented as of this encounter Visit Diagnoses Diagnosis TIA on medication - Primary Unspecified transient cerebral ischemia documented in this encounter Care Teams Log Sawyer Relationship Specialty Start Date End Date Bill Thao MD PCP - General Family Practice 04/14/14 07/16/14 [address] [place] [address] documented as of this encounter
--- OUTSIDE RECORDS SUMMARY | 2022-07-25 16:07 | XMS_ITS | Encounter Summary ---
:1950 Author Organization [place] Address [address] [place] [address]. [place] [address] Care Team Providers Name Role Phone Bill Thao MD Primary Care Provider Radha Montoya RN Unavailable Reason for Visit Reason Comments Hospital F/U stroke sx---needs INR tested and regular scheduling to have this done Encounter Details Date Type Department Care Team Description 04/14/2014 Office Visit [facility] Bill Thao TIA on medication Clinic [place] MD [place] (Primary Dx) [address] [place] [address] [phone] Social History Tobacco Use Types Packs/Day Years Used Date Never Smoker Smokeless Tobacco: Never Used Alcohol Use Standard Drinks/Week Comments No 0 (1 standard drink = 0.6 oz pure alcoho l) Sex Assigned at Date Recorded Not on file documented as of this encounter Last Filed Vital Signs Vital Sign Reading Time Taken Comments Blood Pressure 90/58 04/14/2014 12:11 PM CDT Pulse 69 04/14/2014 12:11 PM CDT Temperature 36.7 ??C (98.1 ??F) 04/14/2014 12:11 PM CDT Respiratory Rate 16 04/14/2014 12:11 PM CDT Oxygen Saturation 96% 04/14/2014 12:11 PM CDT Inhaled Oxygen Concentration - - Weight 118.4 kg (261 lb) 04/14/2014 12:11 PM CDT Height 185.4 cm (6' 1) 04/14/2014 12:11 PM CDT Body Mass Index 34.43 04/14/2014 12:11 PM CDT documented in this encounter Progress Notes Bill Thao MD - 04/14/2014 12:14 PM CDT SUBJECTIVE: Damon Mccall is a 64 year old male who presents to clinic today for the following health issues: Cerebrovascular Follow-up ?? Patient history: Pt states he had stroke 11 yrs ago but was recently admitted for stroke sx ?? Residual symptoms: None, Slurred speech and trouble regulated INR, extreme fatigue ?? Worsened or new symptoms since last visit: feeling more tired than he feels he should be ?? Daily aspirin use: Yes ?? 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 Problems taking medications regularly: ?? Medication side effects: fatigue from seizure medication ?? Diet: regular (no restrictions) History Substance Use Topics ??? Smoking status: Never Smoker ??? Smokeless tobacco: Never Used ??? Alcohol Use: No Problem list and histories reviewed & adjusted, as indicated. Additional history Past Medical History Diagnosis Date ??? Unspecified [...] tobacco: Never Used ??? Alcohol Use: No Current Outpatient Prescriptions Medication ??? aspirin 81 MG tablet ??? enoxaparin (LOVENOX) 120 MG/0.8ML SOLN ??? levETIRAcetam 1000 MG TABS ??? warfarin (COUMADIN) 2.5 MG tablet ??? INDOMETHACIN PO ??? amLODIPine (NORVASC) 5 MG tablet ??? cyanocobalamin 500 MCG SUBL ??? ATENOLOL PO ??? GABAPENTIN PO ??? MAGNESIUM OXIDE PO ??? Pregabalin (LYRICA PO) ??? ROPINIROLE HCL PO ??? Riboflavin (VITAMIN B-2 PO) ??? GABAPENTIN PO ??? lisinopril (PRINIVIL,ZESTRIL) 30 MG tablet ??? simvastatin (ZOCOR) 20 MG tablet ??? folic acid-vit B6-vit B12 (FOLGARD) 0.8-10-0.115 MG TABS ??? Multiple Vitamin (MULTI-VITAMIN) per tablet No current facility-administered medications for this visit. Prior care at [facility] He's seeing [facility] DR. Fox and is newly started on coumadin REVIEW OF SYSTEMS Generally has been back to feeling well until this episode. No problems with vision, hearing, dentalor neck pain.Has hph airborne or ingestion allergy was IN HOSPITAL last week and came out on coumading No chest pain, palpitations, dyspnea, change in bowel habits, blood in stool or dyspepsia. No rashes, changing moles, weakness, lassitude or back problems. No chronic issues . No dysuria Patient never a smoker. No problems with significant headaches. On exam the vital signs are stable Weight is Body mass index is 34.44 kg/(m^2). Eyes show meagan No neck masses or [...] stance. Neck is supple. Back exam shows splinting of lumbar, old ddd issues (435.9) TIA on medication (primary encounter diagnosis) Comment: Plan: will need INR program and Dr. Fox follow up documented in this encounter Nursing Notes Shelly Jacobs RN - 04/14/2014 12:19 PM CDT Chief Complaint Patient presents with ??? Hospital F/U stroke sx---needs INR tested and regular scheduling to have this done Initial BP 90/58 Pulse 69 Temp(Src) 98.1 ??F (36.7 ??C) (Oral) Resp 16 Ht 6' 1 (1.854 m) Wt 261 lb (118.389 kg) BMI 34.44 kg/m2 SpO2 96% Estimated body mass index is 34.44 kg/(m^2) as calculated from the following: Height as of this encounter: 6' 1 (1.854 m). Weight as of this encounter: 261 lb (118.389 kg).. BP completed using cuff size large Health Maintenance Updated with Patient: Yes Tobacco Verified: Yes Payor/Verify RX Benefits/Reconcile Disp Completed if allowed: Yes Family History Updated: Yes Immunizations Up to Date: Yes Mychart Offered: Yes Shelly Jacobs CMA documented in this encounter Plan of Treatment Not on filedocumented as of this encounter Visit Diagnoses Diagnosis TIA on medication - Primary Unspecified transient cerebral ischemia documented in this encounter Care Teams Civil Preparedness Training Officer Relationship Specialty Start Date End Date Bill Thao, PCP - General Family Practice 04/14/14 07/16/14 [address] [place] [address] Radha Montoya, PIO Clinic Top Stitcher Nurse 04/15/14 10/26/14 documented as of this encounter
--- OUTSIDE RECORDS SUMMARY | 2022-07-25 16:07 | XMS_ITS | Encounter Summary ---
:1950 Author Organization [place] Address [facility] [place] [address] Care Team Providers Name Role Phone Bill Thao MD Primary Care Provider Radha Montoya RN Unavailable Reason for Visit Reason Comments Clinic Care Coordination - Follow-up clinic care coord ination RN Care Team Encounter Details Date Type Department Care Team Description 05/09/2014 Care Coordination [facility] Bill Thao Care Care Coordination MD [place] Coordination - [address] [place] [address] [facility] Follow-up ([place], [place] [address] ); Care Team [phone] Social History Tobacco Use Types Packs/Day Years Used Date Never Smoker Smokeless Tobacco: Never Used Alcohol Use Standard Drinks/Week Comments No 0 (1 standard drink = 0.6 oz pure alcoho l) Sex Assigned at Date Recorded Not on file documented as of this encounter Progress Notes Radha Montoya RN - 05/12/2014 10:27 AM CDT Care Coordination Contact Attempt Referral Source: care transitions specialists Clinical Data: see note below Outreach attempted x 2. Left message with . He is out again today. He is feeling well. Plan: Will await call from patient. If no return call by 05/16/14 will send unable to contact letter,patient is stable, no care coordination needs Radha Montoya Home Restoration Service Supervisor POI [facility] [phone] Radha Montoya RN - 05/09/2014 1:04 PM CDT Care Coordination Contact Attempt Referral Source: care transitions specialists Clinical Data: TIA - admitted from 04/11 -04/13 - Patient is not currently home. His states they just returned from a mini 4 day vacation and he did really well. Outreach attempted x 1. Left message with to have patient return call to [facility] when he has a minute. Plan: Will attempt to contact in 1 business days and await response to message. Radha Montoya Home Restoration Service Supervisor PIO [facility] [phone] documented in this encounter Plan of Treatment Not on filedocumented as of this encounter Visit Diagnoses Not on filedocumented in this encounter Care Teams Analysis Specialist Relationship Specialty Start Date End Date Bill Thao, PCP - General Family Practice 04/14/14 07/16/14 [address] [place] [address] Radha Montoya RN Clinic Home Restoration Service Supervisor Nurse 04/15/14 10/26/14 documented as of this encounter
--- OUTSIDE RECORDS SUMMARY | 2022-07-25 16:07 | XMS_ITS | Encounter Summary ---
:1950 Author Organization [place] Address [address] [place] [address]. [place] [address] Care Team Providers Name Role Phone Bill Thao MD Primary Care Provider Radha Montoya RN Unavailable Reason for Visit Reason Onset Date Comments Patient Request 04/23/2014 Accu-chek test strip s Encounter Details Date Type Department Care Team Description 04/23/[address] [facility] Bill Thao t Request Clinic [place] MD [place] (Accu-chek test strips) [address] [place] [address] [phone] (Wo rk) Social History Tobacco Use Types Packs/Day Years Used Date Never Smoker Smokeless Tobacco: Never Used Alcohol Use Standard Drinks/Week Comments No 0 (1 standard drink = 0.6 oz pure alcoho l) Sex Assigned at Date Recorded Not on file documented as of this encounter Miscellaneous Notes Telephone Encounter - Glen Pascual RN - 04/23/2014 4:09 PM CDT Spouse calls. Several years ago pt was monitoring blood glucose so has an Accu- chek meter at home. Radha, critical care cns, spoke with patient today and suggested pt check blood sugar because of dizzy spells late morning/lunchtime. They request Rx for test strips. T'd up. Glen Pascual, RN documented in this encounter Plan of Treatment Not on filedocumented as of this encounter Visit Diagnoses Diagnosis Syncope and collapse - Primary documented in this encounter Care Teams Hotel Dining Room Cashier Relationship Specialty Start Date End Date Bill Thao, PCP - General Family Practice 04/14/14 07/16/14 [address] [place] [address] Radha Montoya, PIO Clinic Butcher Chicken And Fish Nurse 04/15/14 10/26/14 documented as of this encounter
--- OUTSIDE RECORDS SUMMARY | 2022-07-25 16:07 | XMS_ITS | Encounter Summary ---
:1950 Author Organization [place] Address [address] [place] [address] Care Team Providers Name Role Phone Bill Thao MD Primary Care Provider Radha Montoya RN Unavailable Reason for Visit Reason Onset Date Comments Pt. Information/instruction 04/18/2014 reveal linq Encounter Details Date Type Department Care Team Description 04/18/2014 Telephone [facility] Heart Raquel Gamino Pt . Clinic Daphnie Bravo, RN, RN Information/instruction [address] [facility] HEART (revea l linq) [facility] [address] [place] [phone] [address] [facility] [phone] [address] [place], [place] [address] Social History Tobacco Use Types Packs/Day Years Used Date Never Smoker Smokeless Tobacco: Never Used Alcohol Use Standard Drinks/Week Comments No 0 (1 standard drink = 0.6 oz pure alcoho l) Sex Assigned at Date Recorded Not on file documented as of this encounter Miscellaneous Notes Telephone Encounter - Raquel Gamino, RN, RN - 04/18/2014 9:37 AM CDT Reveal Linq carelink monitor check. Alert was triggered due to a 3 sec pause. Rhythm is SR with lossof sensing, not three sec pause. Called pt and he was setting up monitor and that is why this transmission was sent. He had questions about reveal monitoring and they were answered. He has carelink remote check schedule on 07/08/14. documented in this encounter Plan of Treatment Not on filedocumented as of this encounter Visit Diagnoses Not on filedocumented in this encounter Care Teams Population Health Manager Relationship Specialty Start Date End Date Bill Thao, PCP - General Family Practice 04/14/14 07/16/14 [address] [place] [address] Radha Montoya, PIO Clinic Template Reproduction Technician Nurse 04/15/14 10/26/14 documented as of this encounter
--- OUTSIDE RECORDS SUMMARY | 2022-07-25 16:07 | XMS_ITS | Encounter Summary ---
:1950 Author Organization [place] Address [address] [place] [address]. [place] [address] Care Team Providers Name Role Phone Bill Thao MD Primary Care Provider Radha Montoya RN Unavailable Reason for Visit Reason Onset Date Comments Refill Request 05/19/2014 B12 Encounter Details Date Type Department Care Team Description 05/19/2014 Refill [facility] Bill Thao Refill Request (B12) JaffreyJosué Palomo MD [address] [place] [phone] [id number] (Wo rk) Social History Tobacco Use Types Packs/Day Years Used Date Never Smoker Smokeless Tobacco: Never Used Alcohol Use Standard Drinks/Week Comments No 0 (1 standard drink = 0.6 oz pure alcoho l) Sex Assigned at Date Recorded Not on file documented as of this encounter Miscellaneous Notes Telephone Encounter - Raquel Vail RN - 05/19/2014 2:48 PM CDT Last OV: 05/16/14 Routed, ongoing rx ? Raquel Vail RN, BSN Message handled by Nurse Triage. documented in this encounter Plan of Treatment Not on filedocumented as of this encounter Visit Diagnoses Diagnosis Vitamin B12 deficiency (non anaemic) Other B-complex deficiencies documented in this encounter Care Teams Commercial Litigation Attorney Relationship Specialty Start Date End Date Bill Thao, PCP - General Family Practice 04/14/14 07/16/14 [address] [place] [address] Radha Montoya, PIO Clinic Dye Weigher Helper Nurse 04/15/14 10/26/14 documented as of this encounter
--- OUTSIDE RECORDS SUMMARY | 2022-07-25 16:07 | XMS_ITS | Encounter Summary ---
:1950 Author Organization [place] Address [facility] [place] [address] Care Team Providers Name Role Phone Bill Thao MD Primary Care Provider Radha Montoya RN Unavailable Reason for Visit Reason Comments Clinic Care Coordination - Follow-up clinic care coord ination RN Care Team Encounter Details Date Type Department Care Team Description 04/23/2014 Care Coordination [facility] Bill Thao Care Care Coordination MD [place] Coordination - [address] [place] [address] KEL Follow-up ([place], [place] [address] ); Care Team [phone] Social History Tobacco Use Types Packs/Day Years Used Date Never Smoker Smokeless Tobacco: Never Used Alcohol Use Standard Drinks/Week Comments No 0 (1 standard drink = 0.6 oz pure alcoho l) Sex Assigned at Date Recorded Not on file documented as of this encounter Progress Notes Radha Montoya RN - 04/23/2014 3:23 PM CDT Clinic Care Coordination Assessment Identity verified PCP: Bill Thao Referral Source: Care transitions specialists Utilization: Last pcp appt. 04/21/14 f/u appt. With pcp 05/21/14 Health Maintenance Reviewed: Health Maintenance Due Topic Date Due ??? TETANUS IMMUNIZATION (SYSTEM ASSIGNED) 1966 ??? ADVANCE DIRECTIVE PLANNING Q5 YRS (NO INBASKET) 1966 ??? PNEUMOVAX ([place] ASSIGNED) 2013 Current Medical Health Concerns: TIA - admitted from 04/11 -04/13. Patient states he is doing well. Hedoes have about 1 episode a day where he seems to be fuzzy. Usually about noon. He states it does seem to get better with eating. He does not check his blood sugar regularly however he does have a meter at home. He will check his blood sugar next time he is feeling this way. Patient asks about lab that was done to check the seizure medication level and that is not back. Medication Management: Patient states compliance. He states he has no questions regarding medications Checking INR as directed Functional Status: Independent with ADL's and IADL's. Patient lives in [facility], daughter lives in lower level. Railings on stairs. 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 available to assist as needed. NO DME in use Current Behavioral Health Concerns: No concerns noted. Patient is in good spirits and thankful for the call. Psychosocial: Lives with and daughter in house in [place]. No advanced care directives on file. 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 Gaps: Medical Health Resources Given: None today Plan: 1. Patient will f/u with pcp as scheduled 2. Patient will f/u with INR as directed 3. Patient to call CCRN with questions/concerns 4. CCRN will call patient once more in 2 weeks Radha Montoya Drilling Plant Operator PIO [facility] [phone] Radha Montoya RN - 04/23/2014 9:36 AM CDT Care Coordination Contact Attempt Referral Source: care transitions specialists Clinical Data: TIA on admitted from 04/11-04/13 Outreach attempted x 1. Left message on voicemail with call back information and requested return call. Plan: Will attempt to contact in 1 business days and await response to message. Radha Montoya Drilling Plant Operator RN [facility] [phone] documented in this encounter Plan of Treatment Not on filedocumented as of this encounter Visit Diagnoses Not on filedocumented in this encounter Care Teams Lead Software Architect Relationship Specialty Start Date End Date Bill Thao, PCP - General Family Practice 04/14/14 07/16/14 [address] [place] [address] Radha Montoya RN Clinic Drilling Plant Operator Nurse 04/15/14 10/26/14 documented as of this encounter
--- OUTSIDE RECORDS SUMMARY | 2022-07-25 16:07 | XMS_ITS | Encounter Summary ---
:1950 Author Organization [place] Address [address] [place] [address] Care Team Providers Name Role Phone Bill Thao MD Primary Care Provider [phone] Radha Montoya RN Unavailable Reason for Visit Reason Comments Anticoagulation Encounter Details Date Type Department Care Team Description 04/28/2014 Allied Health/Nurse [facility] Clinic Anticoagulation Visit [address] [address] Social History Tobacco Use Types Packs/Day Years Used Date Never Smoker Smokeless Tobacco: Never Used Alcohol Use Standard Drinks/Week Comments No 0 (1 standard drink = 0.6 oz pure alcoho l) Sex Assigned at Date Recorded Not on file documented as of this encounter Progress Notes Layne Salas RN - 04/28/2014 11:06 AM CDT ANTICOAGULATION FOLLOW-UP CLINIC VISIT Patient Name: Damon Mccall Date: 04/28/2014 Contact Type: Face to Face SUBJECTIVE: Bleeding Signs/Symptoms: None Thromboembolic Signs/Symptoms: None Medication Changes: No Dietary Changes: He ate some greens but does not think he got in 3 servings. He will try to get 2 servings in before Monday INR check. Bacterial/Viral Infection: No Missed Coumadin Doses: None Other Concerns: No ASSESSMENT/PLAN: See: ANTICOAGULATION QIC flow sheet. CR ANTICOAGULATION CLINIC documented in this encounter Plan of Treatment Not on filedocumented as of this encounter Procedures Procedure Name Priority Date/Time Associated Diagnosis Comme nts INR POINT OF CARE Routine 04/28/2014 terminal carman (current) use of Results for this anticoagulants procedure are in the results section . documented in this encounter Results (ABNORMAL) INR point of care (04/28/2014) P athologist Signature INR Point of 3.4 (A) 0.86 - [facility] 1.14 LAB Specimen (Source) Anatomical Location Collection Method / Collectio n Time Received Time / Laterality Volume 04/28/2014 Bill Thao MD LAB - BLOOD ORDERABLES Performing Organization Address City/State/ZIP Code Phon e Number [facility] documented in this encounter Visit Diagnoses Diagnosis intermediate (current) use of anticoagulant s - Primary Long-term (current) use of anticoagulant s documented in this encounter Care Teams Land Management Supervisor Relationship Specialty Start Date End Date Bill Thao, PCP - General Family Practice 04/14/14 07/16/14 [address] [place] [address] Radha Montoya, PIO Clinic Professor Of Early Childhood Education Nurse 04/15/14 10/26/14 documented as of this encounter
--- OUTSIDE RECORDS SUMMARY | 2022-07-25 16:07 | XMS_ITS | Encounter Summary ---
:1950 Author Organization [place] Address [address] [place] [address] Care Team Providers Name Role Phone Bill Thao MD Primary Care Provider [phone] Radha Montoya RN Unavailable Reason for Visit Reason Comments Anticoagulation Encounter Details Date Type Department Care Team Description 04/15/2014 Allied Health/Nurse [facility] Clinic Anticoagulation Visit [address] [address] Social History Tobacco Use Types Packs/Day Years Used Date Never Smoker Smokeless Tobacco: Never Used Alcohol Use Standard Drinks/Week Comments No 0 (1 standard drink = 0.6 oz pure alcoho l) Sex Assigned at Date Recorded Not on file documented as of this encounter Progress Notes Sindy Smith RN - 04/15/2014 1:36 PM CDT ANTICOAGULATION FOLLOW-UP CLINIC VISIT Patient Name: Damon Mccall Date: 04/15/2014 Contact Type: Face to Face SUBJECTIVE: Bleeding Signs/Symptoms: None Thromboembolic Signs/Symptoms: None Medication Changes: No Dietary Changes: No Bacterial/Viral Infection: No Missed Coumadin Doses: None Other Concerns: Will DC Lovenox today, start 81mg ASA tomorrow, recheck Thurs and complete intial teaching. ASSESSMENT/PLAN: See: ANTICOAGULATION QIC flow sheet. CR ANTICOAGULATION CLINIC documented in this encounter Plan of Treatment Not on filedocumented as of this encounter Procedures Procedure Name Priority Date/Time Associated Diagnosis Comme nts INR POINT OF CARE Routine 04/15/2014 terminologist (current) use of Results for this anticoagulants procedure are in the results section . documented in this encounter Results (ABNORMAL) INR point of care (04/15/2014) P athologist Signature INR Point of 3.4 (A) 0.86 - [facility] Care 1.14 LAB Specimen (Source) Anatomical Location Collection Method / Collectio n Time Received Time / Laterality Volume 04/15/2014 Bill Thao MD LAB - BLOOD ORDERABLES Performing Organization Address City/State/ZIP Code Phon e Number [facility] documented in this encounter Visit Diagnoses Diagnosis terminologist (current) use of anticoagulant s - Primary Long-term (current) use of anticoagulant s documented in this encounter Care Teams Parking Line Painter Relationship Specialty Start Date End Date Bill Thao, PCP - General Family Practice 04/14/14 07/16/14 [address] [place] [address] Radha Montoya, PIO Clinic Sourcing Manager Nurse 04/15/14 10/26/14 documented as of this encounter
--- OUTSIDE RECORDS SUMMARY | 2022-07-25 16:07 | XMS_ITS | Encounter Summary ---
:1950 Author Organization [place] Address [address] [place] [address] Care Team Providers Name Role Phone Bill Thao MD Primary Care Provider Radha Montoya RN Unavailable Reason for Visit Reason Comments Anticoagulation Encounter Details Date Type Department Care Team Description 05/16/2014 Allied Health/Nurse [facility] Clinic Anticoagulation Visit [address] [address] Social History Tobacco Use Types Packs/Day Years Used Date Never Smoker Smokeless Tobacco: Never Used Alcohol Use Standard Drinks/Week Comments No 0 (1 standard drink = 0.6 oz pure alcoho l) Sex Assigned at Date Recorded Not on file documented as of this encounter Progress Notes Sindy Smith RN - 05/16/2014 8:43 AM CDT ANTICOAGULATION FOLLOW-UP CLINIC VISIT Patient Name: Damon Mccall Date: 05/16/2014 Contact Type: Face to Face SUBJECTIVE: Bleeding Signs/Symptoms: None Thromboembolic Signs/Symptoms: None Medication Changes: No Dietary Changes: 3 svgs for the next 2 weeks Bacterial/Viral Infection: No Missed Coumadin Doses: None Other Concerns: No ASSESSMENT/PLAN: See: ANTICOAGULATION QIC flow sheet. CR ANTICOAGULATION CLINIC documented in this encounter Plan of Treatment Not on filedocumented as of this encounter Procedures Procedure Name Priority Date/Time Associated Diagnosis Comme nts INR POINT OF CARE Routine 05/16/2014 communications professor current use o f Results for this anticoagulant therapy proced ure are in the results section . documented in this encounter Results (ABNORMAL) INR point of care (05/16/2014) P athologist Signature INR Point of 2.9 (A) 0.86 - [facility] Care 1.14 LAB Specimen (Source) Anatomical Location Collection Method / Collectio n Time Received Time / Laterality Volume 05/16/2014 Bill Thao MD LAB - BLOOD ORDERABLES Performing Organization Address City/State/ZIP Code Phon e Number [facility] documented in this encounter Visit Diagnoses Diagnosis custodial current use of anticoagulant t herapy - Primary documented in this encounter Care Teams Securities Clerk Relationship Specialty Start Date End Date Bill Thao, PCP - General Family Practice 04/14/14 07/16/14 [address] [place] [address] Radha Montoya, PIO Clinic Private Tutor Nurse 04/15/14 10/26/14 documented as of this encounter
--- OUTSIDE RECORDS SUMMARY | 2022-07-25 16:07 | XMS_ITS | Encounter Summary ---
:1950 Author Organization [place] Address [facility] [place] [address] Care Team Providers Name Role Phone Bill Thao MD Primary Care Provider [phone] Radha Montoya RN Unavailable Reason for Visit Reason Comments Anticoagulation Encounter Details Date Type Department Care Team Description 04/14/2014 Allied Health/Nurse [facility] Clinic Anticoagulation Visit [address] [address] Social History Tobacco Use Types Packs/Day Years Used Date Never Smoker Smokeless Tobacco: Never Used Alcohol Use Standard Drinks/Week Comments No 0 (1 standard drink = 0.6 oz pure alcoho l) Sex Assigned at Date Recorded Not on file documented as of this encounter Progress Notes Layne Salas RN - 04/14/2014 1:38 PM CDT ANTICOAGULATION INITIAL CLINIC VISIT Patient Name: Damon Mccall Date: 04/14/2014 Referred by: KALANI SZYMANSKI Contact Type: Face to Face SUBJECTIVE: Coumadin education was completed today. Topics covered include: -Proper Administration -INR Testing -Dietary Intake of Vitamin K -Anticoagulation Identification (bracelet, necklace or wallet card) Coumadin Education Booklet and Coumadin Identification Wallet Card were given to the patient. Bleeding Signs/Symptoms: None Thromboembolic Signs/Symptoms: None Medication Changes: Patient started Lovenox 120mg BID on 04/13/14. Discharge instructions state to hold 81mg ASA until Lovenox is discontinued. Patient not a good historian for Warfarin dosing (due to TIA) but looks like he has had combo of 7.5mg and 10mg; however, he was discharged with 2.5mg tablets. Patient thinks he has 10mg tablets at home, we will ask his at INR appt. On 04/17/14. Dietary Changes: No Bacterial/Viral Infection: No Missed Coumadin Doses: None Other Concerns: Patient exhausted, discharged back to home yesterday. Patient established with Dr. Thao today. Patient is accompanied by his daughter today, patient's will be present at next visit so I willhave Sindy finish INR teaching then. ASSESSMENT/PLAN: See: ANTICOAGULATION QIC flowsheet. CR ANTICOAGULATION CLINIC HPI ROS Physical Exam Bill Thao MD - 04/14/2014 12:47 PM CDT SUBJECTIVE: CC: Damon Mccall is a 64 year old male who presents for recurrent tia this weekend HPI: see [facility] discharge summary, He sees Dr. Fox from the stroke service. PROBLEM LIST: Patient Active Problem List Diagnosis ??? TIA on medication ??? Seizure PAST MEDICAL HISTORY: Past Medical History Diagnosis Date ??? Unspecified cerebral artery occlusion with cerebral infarction ??? Hypertension ??? Neuropathy ??? TIA (transient ischaemic attack) Has also see PAST SURGICAL HISTORY: Past Surgical History Procedure Laterality Date ??? Gi surgery ??? Resection abdominal perineal ??? Colonoscopy ??? Colonoscopy 10/17/2012 Procedure: COLONOSCOPY; Colonoscopy; Surgeon: Damon Jaimes MD; Location: GI CURRENT MEDICATIONS: Current Outpatient Prescriptions Medication Sig Dispense Refill ??? aspirin 81 MG tablet Take 1 [...] mg) by mouth daily Take 10mg po gwen martinez INR tomorrow 60 tablet 2 ??? INDOMETHACIN PO Take 25 mg by mouth 3 times daily (with meals) ??? amLODIPine (NORVASC) 5 MG tablet Take 1 tablet (5 mg) by mouth daily 30 tablet 0 ??? cyanocobalamin [address] tablets (1,000 mcg) under the tongue daily 30 tablet 0 ??? ATENOLOL PO Take 100 mg by [...] Sister HEALTH MAINTENANCE: REVIEW OF OUTSIDE RECORDS: YES - Date: discharge meds reconciled without change: question will be how long to take lovenox REVIEW OF SYSTEMS: C: NEGATIVE for fever, chills I: NEGATIVE for worrisome rashes, moles or lesions E: NEGATIVE for vision changes E/M: NEGATIVE for ear, mouth and throat problems R: NEGATIVE for significant cough or SOB CV: NEGATIVE for chest pain, palpitations GI: NEGATIVE for nausea, abdominal pain, heartburn, or change in bowel habits : NEGATIVE for frequency, dysuria, or hematuria M: NEGATIVE for significant arthralgias or myalgia NEURO: gets aphasia when this happens, Stroke vs minor seizure is still being debated NVS:no headache or balance issus INTEG:no moles or new rashes LYMPH:no nodes or night sweats EXAM: There were no vitals taken for this visit. GENERAL APPEARANCE: well nourished EXAM: GENERAL APPEARANCE: healthy, alert and no [...] pain on straight let raise ASSESSMENT/PLAN 1. TIA on medication 2. Seizure On lovenox crossover while he gets conclusively to goal on INR Previous INRs at [facility] and outpatient was at [facility] I have discussed with patient the risks, benefits, medications, treatment options and modalities. I have instructed the patient to call or schedule a follow-up appointment if any problems or failureto improve. documented in this encounter Plan of Treatment Not on filedocumented as of this encounter Procedures Procedure Name Priority Date/Time Associated Diagnosis Comme nts INR POINT OF CARE Routine 04/14/2014 [facility] (current) use of Results for this anticoagulants procedure are in the results section . documented in this encounter Results (ABNORMAL) INR point of care (04/14/2014) P athologist Signature INR Point of 2.2 (A) 0.86 - [facility] Care 1.14 LAB Specimen (Source) Anatomical Location Collection Method / Collectio n Time Received Time / Laterality Volume 04/14/2014 Bill Thao MD LAB - BLOOD ORDERABLES Performing Organization Address City/State/ZIP Code Phon e Number [facility] documented in this encounter Visit Diagnoses Diagnosis TIA on medication - Primary Unspecified transient cerebral ischemia Seizure (H) Other convulsions termite exterminator helper (current) use of anticoagulant s Long-term (current) use of anticoagulant s documented in this encounter Care Teams Beaming Machine Operator Relationship Specialty Start Date End Date Bill Thao, PCP - General Family Practice 04/14/14 07/16/14 [address] [place] [address] Radha Montoya, RN Clinic Data Integrity Consultant Nurse 04/15/14 10/26/14 documented as of this encounter
--- OUTSIDE RECORDS SUMMARY | 2022-07-25 16:07 | XMS_ITS | Encounter Summary ---
:1950 Author Organization [place] Address [address] [place] [address]. [place] [address] Care Team Providers Name Role Phone Tristan Thao MD Primary Care Provider Radha Montoya RN Unavailable Reason for Visit Reason Onset Date Comments Refill Request 06/18/2014 amlodipine Encounter Details Date Type Department Care Team Description 06/18/2014 Refill [facility] Tristan Thao Refill Request Clinic [place] MD [place] (amlodipine) [address] [place] [phone] [id number] (Wo rk) Social History Tobacco Use Types Packs/Day Years Used Date Never Smoker Smokeless Tobacco: Never Used Alcohol Use Standard Drinks/Week Comments No 0 (1 standard drink = 0.6 oz pure alcoho l) Sex Assigned at Date Recorded Not on file documented as of this encounter Miscellaneous Notes Telephone Encounter - Raquel Vail RN - 06/18/2014 2:39 PM CDT ? New for TRISTAN THAO MD , routed Last OV: 05/16/14 for gouty arthritis BP Readings from Last 2 Encounters: 05/16/14 120/76 04/21/14 118/66 CR 1.17 04/12/2014 POTASSIUM 4.7 04/12/2014 Raquel Vogelgesang, RN, BSN Message handled by Nurse Triage. documented in this encounter Plan of Treatment Not on filedocumented as of this encounter Visit Diagnoses Diagnosis HTN (hypertension) Unspecified essential hypertension documented in this encounter Care Teams Disciplinary Hearing Officer Relationship Specialty Start Date End Date Tristan Thao, PCP - General Family Practice 04/14/14 07/16/14 [address] [place] [address] Radha Montoya RN Clinic Perennial House Manager Nurse 04/15/14 10/26/14 documented as of this encounter
--- OUTSIDE RECORDS SUMMARY | 2022-07-25 16:07 | XMS_ITS | Encounter Summary ---
:1950 Author Organization [facility] Address [address] [place] [address] Care Team Providers Name Role Phone Bill Thao MD Primary Care Provider aRdha Montoya RN Unavailable Reason for Visit Reason Comments Anticoagulation Encounter Details Date Type Department Care Team Description 06/13/2014 Allied Health/Nurse [facility] Anticoagulation Visit [address] [address] Social History Tobacco Use Types Packs/Day Years Used Date Never Smoker Smokeless Tobacco: Never Used Alcohol Use Standard Drinks/Week Comments No 0 (1 standard drink = 0.6 oz pure alcoho l) Sex Assigned at Date Recorded Not on file documented as of this encounter Progress Notes Sindy Smith RN - 06/13/2014 8:49 AM CDT ANTICOAGULATION FOLLOW-UP CLINIC VISIT Patient Name: Damon Mccall Date: 06/13/2014 Contact Type: Face to Face SUBJECTIVE: Bleeding [...] Comme nts INR POINT OF CARE Routine 06/13/2014 ferry terminal supervisor current use o f Results for this anticoagulant therapy proced ure are in the results section . documented in this encounter Results (ABNORMAL) INR point of care (06/13/2014) P athologist Signature INR Point of 2.4 (A) 0.86 - [facility] 1.14 LAB Specimen (Source) Anatomical Location Collection Method / Collectio n Time Received Time / Laterality Volume 06/13/2014 Bill Thao MD LAB - BLOOD ORDERABLES Performing Organization Address City/State/ZIP Code Phon e Number [facility] documented in this encounter Visit Diagnoses Diagnosis ferry terminal supervisor current use of anticoagulant t herapy - Primary documented in this encounter Care Teams Hematology Supervisor Relationship Specialty Start Date End Date Bill Thao, PCP - General Family Practice 04/14/14 07/16/14 [address] [place] [address] Radha Montoya, PIO Clinic Tour Guide Nurse 04/15/14 10/26/14 documented as of this encounter
--- OUTSIDE RECORDS SUMMARY | 2022-07-25 16:07 | XMS_ITS | Encounter Summary ---
:1950 Author Organization [facility] Address [address] [place] [address] Care Team Providers Name Role Phone Bill Thao MD Primary Care Provider Radha Montoya RN Unavailable Reason for Visit Reason Comments Anticoagulation Encounter Details Date Type Department Care Team Description 05/02/2014 Allied Health/Nurse [facility] Anticoagulation Visit [address] [address] Social History Tobacco Use Types Packs/Day Years Used Date Never Smoker Smokeless Tobacco: Never Used Alcohol Use Standard Drinks/Week Comments No 0 (1 standard drink = 0.6 oz pure alcoho l) Sex Assigned at Date Recorded Not on file documented as of this encounter Progress Notes Sindy Smith RN - 05/02/2014 10:32 AM CDT ANTICOAGULATION FOLLOW-UP CLINIC VISIT Patient Name: Damon Mccall Date: 05/02/2014 Contact Type: Face to Face SUBJECTIVE: Bleeding Signs/Symptoms: None Thromboembolic Signs/Symptoms: None Medication Changes: No Dietary Changes: No Bacterial/Viral Infection: No Missed Coumadin Doses: None Other Concerns: C/O tiredness - BS seems to fluctuate (neurology nurse recommended pt check his BS).Encouraged pt to eat q2-3hrs, drink adequate water. If no improvement, will check with neurologist whether increase in Levetiracetam could be causing increased fatigue. Looking forward to a few days away in [place]. I increased dose since INR down to 2.3 in just 4 days, anticipates increased activity while in [place], and will try to maintain 3-4 greens/week. ASSESSMENT/PLAN: See: ANTICOAGULATION QIC flow sheet. [facility] ANTICOAGULATION CLINIC documented in this encounter Plan of Treatment Not on filedocumented as of this encounter Procedures Procedure Name Priority Date/Time Associated Diagnosis Comme nts INR POINT OF CARE Routine 05/02/2014 Assisted (Current) Use Of Results for this Anticoagulants procedure are in the results section . documented in this encounter Results (ABNORMAL) INR point of care (05/02/2014) P athologist Signature INR Point of 2.3 (A) 0.86 - [facility] 1.14 LAB Specimen (Source) Anatomical Location Collection Method / Collectio n Time Received Time / Laterality Volume 05/02/2014 Bill Thao MD LAB - BLOOD ORDERABLES Performing Organization Address City/State/ZIP Code Phon e Number [facility] documented in this encounter Visit Diagnoses Diagnosis terminal clerk (current) use of anticoagulant s - Primary Long-term (current) use of anticoagulant s Seizure (H) Other convulsions documented in this encounter Care Teams Auto Mechanics Instructor Relationship Specialty Start Date End Date Bill Thao, PCP - General Family Practice 04/14/14 07/16/14 [address] [place] [address] Radha Montoya, PIO Clinic Machine Sign Writer Nurse 04/15/14 10/26/14 documented as of this encounter
--- OUTSIDE RECORDS SUMMARY | 2022-07-25 16:07 | XMS_ITS | Encounter Summary ---
:1950 Author Organization [facility] Address [address] [place] [address] Care Team Providers Name Role Phone Bill Thao MD Primary Care Provider [phone] Radha Montoya RN Unavailable Reason for Referral Care Coordination - Closed Specialty Diagnoses / Procedures Referred By Contact Refer red To Contact [facility] [address] [place], [place] [address] Referral ID Status Reason Start Date Expiration Date Visits Requ ested Visits Authorized [id number] Closed 04/15/2014 10/12/2014 1 1 Reason for Visit Reason Comments Clinic Care Coordination - Post Hospital clinic care c oordination RN Care Team Encounter Details Date Type Department Care Team Description 04/14/[address] [facility] No Clini c Care Clinic [place] Ref-Primary, Coordination - Post [address] [facility] (clinic care [place], [place] [phone] coordinatio n RN ); [phone] (Fax) Care Team [phone] Social History Tobacco Use Types Packs/Day Years Used Date Never Smoker Smokeless Tobacco: Never Used Alcohol Use Standard Drinks/Week Comments No 0 (1 standard drink = 0.6 oz pure alcoho l) Sex Assigned at Date Recorded Not on file documented as of this encounter Progress Notes Radha Montoya RN - 04/15/2014 11:35 AM CDT Clinic Care Coordination Assessment Outreach to patient. Introduced self as Pocket Cutter and explained Care Coordination role and the concept of Health Custodial. Identity verified. PCP: Bill Thao Referral Source: Care transitions specialists Utilization: First appt. with Dr. Thao 04/14/14 Health Maintenance Reviewed: Health Maintenance Due Topic Date Due ??? TETANUS IMMUNIZATION (SYSTEM ASSIGNED) 1966 ??? ADVANCE DIRECTIVE PLANNING Q5 YRS (NO INBASKET) 1966 ??? PNEUMOVAX ([place] ASSIGNED) 2013 Current Medical Health Concerns: TIA - admitted from 04/11-04/13. Patient established care with Dr. Thao yesterday. He states he is doing well. The biggest thing for him is getting his INR drawn. Medication Management: Patient states compliance. He states he has no questions regarding medications. States lovenox injections are going well. CCRN asked if [facility] pharmacist could call patient to discuss medications and patient declines. Functional Status: Independent with ADL's and IADL's. [facility], daughter lives in lower level. Railings on stairs. 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 available to assist as needed. NO DME in use Current Behavioral Health Concerns: Patient was not really willing to talk much on phone today. Willtry to assess better at next outreach Psychosocial: Lives with and daughter in house in [place]. No advanced care directives on file. 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 Gaps: Medical health Resources Given: CCRN contact information and Emergency Care Plan Plan: 1. Patient to call CCRN with questions/concerns 2. CCRN will mail emergency care plan today and f/u with patient in one week Level 1 Radha Montoya Pocket Cutter PIO [facility] [phone] Radha Montoya RN - 04/14/2014 9:49 AM CDT Patient has not yet established care at [facility] [place] CCRN will monitor and f/u after he has established care Radha Montoya Pocket Cutter RN [facility] [phone] Radha Montoya RN - 04/14/2014 9:48 AM CDT Care Transitions Specialists report received from inpatient staff at [facility] Pt was admitted to [facility] on 04/13 for possible TIA and subtherapeutic INR. He previously saw Dr Charles at [facility] but is switching to Dr Thao. He has a new PMD appt and INR today. He is on lovenox bridging until his INR is therapeutic. Thanks. Clementina Woodson Care Transitions Specialist-RN [facility] [address] [address] [email or web address] documented in this encounter Plan of Treatment Not on filedocumented as of this encounter Visit Diagnoses Diagnosis Health Custodial - Primary notesas part of the Health Custodial wor kflow to capture care coordination pl documented in this encounter Care Teams Vessel Operator Relationship Specialty Start Date End Date Bill Thao, PCP - General Family Practice 04/14/14 07/16/14 [address] [place] [address] Radha Montoya RN Clinic Pocket Cutter Nurse 04/15/14 10/26/14 documented as of this encounter
--- OUTSIDE RECORDS SUMMARY | 2022-07-25 16:07 | XMS_ITS | Encounter Summary ---
:1950 Author Organization [facility] Address [address] [place] [address] Care Team Providers Name Role Phone Bill Thao MD Primary Care Provider Radha Montoya RN Unavailable Reason for Visit Reason Comments Anticoagulation Encounter Details Date Type Department Care Team Description 05/30/2014 Allied Health/Nurse [facility] Clinic Anticoagulation Visit [address] [address] Social History Tobacco Use Types Packs/Day Years Used Date Never Smoker Smokeless Tobacco: Never Used Alcohol Use Standard Drinks/Week Comments No 0 (1 standard drink = 0.6 oz pure alcoho l) Sex Assigned at Date Recorded Not on file documented as of this encounter Progress Notes Sindy Smith RN - 05/30/2014 9:08 AM CDT ANTICOAGULATION FOLLOW-UP CLINIC VISIT Patient Name: Damon Mccall Date: 05/30/2014 Contact Type: Face to Face SUBJECTIVE: Bleeding Signs/Symptoms: None Thromboembolic Signs/Symptoms: None Medication Changes: No Dietary Changes: No Bacterial/Viral Infection: No Missed Coumadin Doses: None Other Concerns: Pt will work on consistency of greens. Will wait 2 weeks before increasing dose. ASSESSMENT/PLAN: See: ANTICOAGULATION QIC flow sheet. ANTICOAGULATION CLINIC documented in this encounter Plan of Treatment Not on filedocumented as of this encounter Procedures Procedure Name Priority Date/Time Associated Diagnosis Comme nts INR POINT OF CARE Routine 05/30/2014 group home current use o f Results for this anticoagulant therapy proced ure are in the results section . documented in this encounter Results (ABNORMAL) INR point of care (05/30/2014) P athologist Signature INR Point of 2.2 (A) 0.86 - [facility] 1.14 LAB Specimen (Source) Anatomical Location Collection Method / Collectio n Time Received Time / Laterality Volume 05/30/2014 Bill Thao MD LAB - BLOOD ORDERABLES Performing Organization Address City/State/ZIP Code Phon e Number [facility] documented in this encounter Visit Diagnoses Diagnosis group home current use of anticoagulant t herapy - Primary documented in this encounter Care Teams Olive Brine Tester Relationship Specialty Start Date End Date Bill Thao, PCP - General Family Practice 04/14/14 07/16/14 [address] [place] [address] Radha Montoya, PIO Clinic Wood Scrap Handler Nurse 04/15/14 10/26/14 documented as of this encounter
--- OUTSIDE RECORDS SUMMARY | 2022-07-25 16:08 | XMS_ITS | Encounter Summary ---
:1950 Author Organization [facility] Address [facility] [place] [address] Care Team Providers Name Role Phone Abbe Charles MD Primary Care Provider Encounter Details Date Type Department Care Team Description 08/13/2013 Hospital Encounter [facility] Saw Gleason , [facility] [address] [facility] [place], [place] NEUROLOGY [address] [address] [facility] [phone] [facility] [address] [place], [place] [address] (Wo rk) Social History Tobacco Use Types Packs/Day Years Used Date Never Smoker Alcohol Use Standard Drinks/Week Comments No 0 (1 standard drink = 0.6 oz pure alcoho l) Sex Assigned at Date Recorded Not on file documented as of this encounter Medications at Time of Discharge Medication Sig Dispensed Refills Start Date End Date lisinopril Take 20 mg by mouth 0 (PRINIVIL,ZESTRIL) 30 MG 2 times daily tablet simvastatin (ZOCOR) 20 MG Take 20 mg by mouth 0 tablet every morning aspirin 325 MG tablet Take 325 mg by 0 03/27/2014 mouth At Bedtime atenolol (TENORMIN) 25 MG Take 25 mg by mouth 0 03/21/2014 tablet daily. ClonAZEPAM (KLONOPIN) 0.5 Take 0.5 mg by 0 03/21/2014 MG tablet mouth 2 times daily as needed. clopidogrel (PLAVIX) 75 Take 75 mg by mouth 0 03/27/2014 MG tablet daily. folic acid-vit B6-vit B12 Take 1 tablet by 0 02/28/2016 (FOLGARD) 0.8-10-0.115 MG mouth daily TABS GABAPENTIN PO Take 300 mg by 0 015 mouth every morning ibuprofen (ADVIL,MOTRIN) Take 1 tablet by 30 tablet 1 10/0603/21/2014 600 MG tablet mouth every 6 hours as needed for pain. Magnesium 250 MG tablet Take 1 tablet by 100 tablet 3 201103/21/2014 mouth 2 times daily. methocarbamol (ROBAXIN) Take 2 tablets by 30 tablet 1 10/0603/21/2014 500 MG tablet mouth 3 times daily as needed. Multiple Vitamin Take 1 tablet by 0 (MULTI-VITAMIN) per mouth daily. tablet Gilbert-3 Fatty Acids Take by mouth. 0 0 03/21/2014 (OMEGA-3 FISH OIL PO) oxycodone-acetaminophen Take 1 tablet by 20 tablet 0 201003/21/2014 (PERCOCET) 5-325 MG per mouth every 6 hours tablet as needed for pain. SIMVASTATIN PO Take by mouth. 0 2013 documented as of this encounter Progress Notes Brenda Non-Provider - 08/14/2013 12:52 PM CDT documented in this encounter Plan of Treatment Not on filedocumented as of this encounter Procedures Procedure Name Priority Date/Time Associated Diagnosis Comme nts IRON AND IRON Routine 08/13/2013 9:52 AM Results for this BINDING CAPACITY CDT procedure a re in the results section. FERRITIN Routine 08/13/2013 9:52 AM Results f or this CDT procedure are i n the results section. documented in this encounter Results Ferritin (08/13/2013 9:52 AM CDT) P athologist Signature Ferritin 113 20 - 300 [facility] ng/mL HOSPITAL LAB Specimen Anatomical Collection Method Collection Time Receive d Time (Source) Location / / Volume Laterality 08/13/2013 9:52 AM 3 CDT 10:01 AM CDT Saw Gleason MD LAB - BLOOD ORDERABLES Performing Organization Address City/State/ZIP Code Phon e Number M [facility] [address] [place], [place] [address] [facility] Iron and iron binding capacity (08/13/2013 9:52 AM CDT) P athologist Signature Iron 71 35 - 180 [place] ug/dL [facility] Iron Binding 295 240 - 430 [place] Cap ug/dL [facility] Iron Saturation 24 15 - 46 % [facility] LAB Specimen Anatomical Collection Method Collection Time Receive d Time (Source) Location / / Volume Laterality 08/13/2013 9:52 AM 3 CDT 10:01 AM CDT Saw Gleason MD LAB - BLOOD ORDERABLES Performing Organization Address City/State/ZIP Code Phon e Number Alyssa [facility] [address] [place], [place] [address] [facility] documented in this encounter Visit Diagnoses Not on filedocumented in this encounter Care Teams Manager Industrial Relationship Specialty Start Date End Date Abbe Charles MD PCP - General 04/01/08 04/13/[address] [place] [address] documented as of this encounter
--- OUTSIDE RECORDS SUMMARY | 2022-07-25 16:08 | XMS_ITS | Encounter Summary ---
:1950 Author Organization [place] Address [facility] [place] [address] Care Team Providers Name Role Phone Abbe Charles MD Primary Care Provider Encounter Details Date Type Department Care Team Description 12/31/2013 [facility] [address] [facility] [place], [place] NEUROLOGY [address] [address] [facility] [phone] [address] (Wo rk) Social History Tobacco [...] by 0 (MULTI-VITAMIN) per mouth daily. tablet [place]-3 Fatty Acids Take by mouth. 0 0 03/21/2014 (OMEGA-3 FISH OIL PO) oxycodone-acetaminophen Take 1 tablet by 20 tablet 0 201003/21/2014 (PERCOCET) 5-325 MG per mouth every 6 hours tablet as needed for pain. SIMVASTATIN PO Take by mouth. 0 2013 documented as of this encounter Progress Notes Julisa Gutierrez-Provider - 01/01/2014 3:54 PM CDT documented in this encounter Plan of Treatment Not on filedocumented as of this encounter Procedures Procedure Name Priority Date/Time Associated Comments Diagnosis PARANEOPLASTIC ANTIBODY Routine 12/31/2013 9:35 AM Results for this CDT procedure are i n the results section. documented in this encounter Results Paraneoplastic antibody (12/31/2013 9:35 AM CDT) Component Value Ref Test Analysis Performed At [facility] Range Method Time Signature PNP Antibody SEE NOTE 01/06/2014 02:31 PM [place] (Note) [facility] Test ? Result ?? Flag ??Unit ?RefValue ------ Paraneoplastic Autoantibody Nicky Schuster Interpretive Comments ?SEE NOTE ?? No informative autoantibodies were detected in this ?? evaluation. However, a negative result does not exclude ?? neurological autoimmunity with or without associated ?? neoplasia. LUNA-1, S ?Negative ? titer ?? <1:240 LUNA-2, S ?Negative ? titer ?? <1:240 LUNA-3, S ?Negative ? titer ?? <1:240 AGNA-1, S ?Negative ? titer ?? <1:240 COTTON STRIPPER-1, S ? Negative ? titer ?? <1:240 COTTON STRIPPER-2, S ? Negative ? titer ?? <1:240 COTTON STRIPPER-Tr, S ?Negative ? titer ?? <1:240 Amphiphysin Ab, S ?Negative ? titer ?? <1:240 CRMP-5-IgG, S ?Negative ? titer ?? -- REFERENCE VALUE -- ?? Negative at <1:240 ?? Titers lower than 1:240 may be ?? detectable by recombinant CRMP-5 ?? western blot analysis. CRMP-5 ?? western blot analysis will be done ?? by request on stored serum. ?? This supplemental testing is ?? recommended in cases of chorea, ?? vision loss, cranial neuropathy ?? and myelopathy. Extramural clients ?? Contact [facility] Inquiry at ?? to add-on CRMP-5-IgG ?? Western Blot, Serum. Intramural ?? Clients, please call the ?? Neuroimmunology Lab at [phone]. Striational (Striated Muscle) ?Negative ? titer ?? <1:60 ?? Ab, S P/Q-Type Calcium Channel Ab ?0.00 ? nmo l/L ??<=0.02 N-Type Calcium Channel Ab ?0.00 ? nm ol/L ??<=0.03 ACh Receptor (Muscle) Binding ?0.00 ? nmol /L ??<=0.02 ?? Ab AChR Ganglionic Neuronal Ab, S ?? 0.00 ? nmol/ L ??<=0.02 Neuronal (V-G) K+ Channel Ab, S ??0.00 ? nmol/ L ??<=0.02 ?? Test Performed by: ?? [facility] ([facility] ?? [address] [place] [address] ?? Asset Manager: Giorgi Brown III, M.D. Specimen Anatomical Collection Method Collection Time Receive d Time (Source) Location / / Volume Laterality 12/31/2013 9:35 AM 4 9:37 CDT AM CDT Radha Milligan MD LAB - BLOOD ORDERABLES Performing Organization Address City/State/ZIP Code Phon e Number M [facility] [address] [place], [place] [address] [facility] documented in this encounter Visit Diagnoses Not on filedocumented in this encounter Care Teams Pharmacy Messenger Relationship Specialty Start Date End Date Abbe Charles MD PCP - General 04/01/08 04/13/14 [facility] [address] [place] [address] documented as of this encounter
--- OUTSIDE RECORDS SUMMARY | 2022-07-25 16:08 | XMS_ITS | Encounter Summary ---
:1950 Author Organization [facility] Address [facility] [place] [address] Care Team Providers Name Role Phone Abbe Charles MD Primary Care Provider Reason for Visit Reason Comments Slurred Speech DC'd 3 weeks ago stroke symp toms TIAs on coumadin, today speech slurred more, poor balance. symptoms started 0600 INR sub theraputic Auth/Cert - Closed Specialty Diagnoses / Procedures Referred By Contact Refer red To Contact Diagnoses Aphasia Seizure [facility] [address] [phone] Phone: Referral ID Status Reason Start Date Expiration Date Visits Requ ested Visits Authorized [id number] Closed 04/11/2014 10/08/2014 1 1 Encounter Details Date Type Department Care Team Description [facility] [address] [place] [address] Aphasia (Primary Dx); 04/13/2014 Encounter Ricardo Young MD [address] [address] TIA on medication; Neuroscience Unit Seizure (H) [address] [phone] Social History Tobacco Use Types Packs/Day Years Used Date Never Smoker Alcohol Use Standard Drinks/Week Comments No 0 (1 standard drink = 0.6 oz pure alcoho l) Sex Assigned at Date Recorded Not on file documented as of this encounter Last Filed Vital Signs Vital Sign Reading Time Taken Comments Blood Pressure 137/66 04/13/2014 3:41 PM CDT Pulse - - Temperature 36.6 ??C (97.9 ??F) 04/13/2014 3:41 PM CDT Respiratory Rate 16 04/13/2014 3:41 PM CDT Oxygen Saturation 97% 04/13/2014 3:41 PM CDT Inhaled Oxygen Concentration - - Weight 116.8 kg (257 lb 8 oz) 04/13/2014 5:52 AM CDT Height 185.4 cm (6' 1) 04/11/2014 1:45 PM CDT Body Mass Index 33.97 04/11/2014 1:45 PM CDT documented in this encounter Discharge Summaries Meg Melgoza MD - 04/13/2014 4:19 PM CDT [facility] Discharge Summary Marlene Mccall Date of : 1950 Age: [age] year old Date of Admission: 04/11/2014 Date of Discharge: 04/13/2014 Admitting Physician: Ricardo Ramos MD Discharge Physician: Meg Melgoza MD Discharging Service: Hospitalist Primary Provider: Abbe Charles Primary Care Physician Discharge Diagnoses/Problem Oriented Hospital Course (Providers): Marlene Mccall was admitted on 04/11/2014 by Ricardo Ramos MD and I would refer you to their history and physical. The following problems were addressed during his hospitalization: Mr. Marlene Mccall is a pleasant 64-year-old gentleman with past medical history significant for hypertension, cerebrovascular accident, transient ischemic attack and grade II left ventricular diastolic dysfunction who presents to [facility] with episodic aphasia and dysarthria and questio nable right sided weakness of possible transient ischemic attack that has failed outpatient management. Further workup will be required to delineate the exact etiology for ongoing symptoms. PLAN: 1. Possible continuing transient ischemic attack versus seizure: CT haed and CT angiogram no acute findings Pt had extensive neurological work up recently On coumadin plus baby aspirin Started on heparin drip for bridging as INR subtherapeutic D/c heaprin drip and start subq lovenox for bridging and coumadin continued. Stop baby aspirin whileon subq lovenox. OK to restart Baby aspirin after subq lovenox is d/c ed Neurology consulted and are following Keppra increased to 1000mg PO BID today Pt had weakly positive PFO on BRISA recently Loop receorder in place. 2. Hypertension. Prior to admission atenolol, lisinopril, amlodipine continued with hold parameters. 3. Dyslipidemia. Prior to admission simvastatin continued. 4. Restless legs. The patient has quite significant restless legs, particularly on the right side. Prior to admission medical regimen is somewhat unorthodox and includes gabapentin and Lyrica and Requip. At present time will defer continuation of gabapentin in favor of continuing Lyrica plus Requip. Will defer to Neurology for further management. 5. Chronic renal insufficiency. The patient's creatinine is a bit elevated at 1.33, but his baselineappears to be 1.2-1.3. Cr normalized with hydration 6. Diastolic dysfunction. Appears euvolemic and compensated. Will continue to monitor for decompensation. Telemetry. 7. CODE STATUS: Full. 8. Deep venous thrombosis prophylaxis with heparin. Dispo; Home today Code Status: Full Code Important Results: See below Pending Results: Unresulted Labs Ordered in the Past 30 Days of this Admission Date and Time Order Name Status Description 03/21/2014 1404 INR AND PTT PANEL In process Discharge Instructions and Follow-Up: Follow-up notes from your care team Follow-up and recommended labs and tests Follow up with primary care provider within 7 days. The following labs/tests are recommended: INR recheck tomorrow on 04/14. Stop subq lovenox injections when INR>2.0. Stop taking baby aspirin while on subq lovenox. When lovenox stops take coumadin and baby aspirin together F/u with in 3-4weeks Discharge Disposition: Discharged to home Discharge Medications: Current Discharge Medication List START taking these medications Details enoxaparin (LOVENOX) 120 MG/0.8ML SOLN Inject 0.8 mLs (120 mg) Subcutaneous every 12 hours Qty: 10 Syringe, Refills: 0 Associated Diagnoses: TIA on medication CONTINUE these medications which have CHANGED Details aspirin 81 MG tablet Take 1 tablet (81 mg) by mouth daily Stop taking aspirin while on SUBQ lovenox injections. When lovenox is stopped start ababy aspirin PO daily Qty: 30 tablet, Refills: OTC Associated Diagnoses: TIA on medication levETIRAcetam 1000 MG TABS Take 1,000 mg by mouth 2 times daily Qty: 60 tablet, Refills: 3 Associated Diagnoses: Seizure warfarin (COUMADIN) 2.5 MG tablet Take 1 tablet (2.5 mg) by mouth daily Take 10mg po tonight and recheck INR tomorrow Qty: 60 tablet, Refills: 2 Associated Diagnoses: TIA on medication CONTINUE these medications which have NOT CHANGED Details INDOMETHACIN PO Take 25 mg by mouth 3 times daily (with meals) amLODIPine (NORVASC) 5 MG tablet Take 1 tablet (5 mg) by mouth daily Qty: 30 tablet, Refills: 0 Associated Diagnoses: HTN (hypertension) cyanocobalamin [address] 2 tablets (1,000 mcg) under the tongue daily Qty: 30 tablet, Refills: 0 Associated Diagnoses: Vitamin B12 deficiency (non anaemic) ATENOLOL PO Take 100 mg by mouth every morning !! GABAPENTIN PO Take 600 mg by mouth At Bedtime MAGNESIUM OXIDE PO Take 500 mg by mouth every morning Pregabalin (LYRICA PO) Take 75 mg by mouth At Bedtime ROPINIROLE HCL PO Take 1 mg by mouth At Bedtime (Takes 2 x 0.5mg tabs for a total of 1mg at bedtime) Riboflavin (VITAMIN B-2 PO) Take 200 mg by mouth 2 times daily !! GABAPENTIN PO Take 300 mg by mouth every morning lisinopril (PRINIVIL,ZESTRIL) 30 MG tablet Take 30 mg by mouth 2 times daily simvastatin (ZOCOR) 20 MG tablet Take 20 mg by mouth At Bedtime. folic acid-vit B6-vit B12 (FOLGARD) 0.8-10-0.115 MG TABS Take 1 tablet by mouth daily Multiple Vitamin (MULTI-VITAMIN) per tablet Take 1 tablet by mouth daily. !! - Potential duplicate medications found. Please discuss with provider. Allergies: No Known Allergies Consultations This Hospital Stay: Consultation during this admission received from neurology Condition and Physical on Discharge: Discharge condition: Stable Vitals: Blood pressure 137/66, temperature 97.9 ??F (36.6 ??C), temperature source Oral, resp. rate 16, height 1.854 m (6' 1), weight 116.8 kg (257 lb 8 oz), SpO2 97 %. Constitutional: Alert and awake. Lungs: clear Cardiovascular: Normal rate and rhythm Abdomen: Soft, NT, ND, BS+ Skin: Warm and dry. No edema Neuro Cranial nerves 2-12 intact. Non focal. Speech normal Discharge Time: Greater than 30 minutes. Image Results From This Hospital Stay (For Non-EPIC Providers): Results for orders placed during the hospital encounter of 04/11/14 CT HEAD W CONTRAST Narrative: CT ANGIOGRAM OF THE HEAD AND NECK WITHOUT AND WITH CONTRAST 04/11/2014, 2:40 PM HISTORY: Previous transient ischemic attacks. Stroke symptoms with slurred speech today. TECHNIQUE: Precontrast localizing scans were followed by CT angiography with an injection of 70 mL Isovue-370 (accession [id number]), 50 mL Isovue-370 (accession [id number]) IV with scans through the head and neck. Images were transferred to a separate 3-D workstation where multiplanar reformations and 3-D images were created. Estimates of carotid stenoses are made relative to the distal internal carotid artery diameters except as noted. Perfusion scans were performed at three levels with injection of an additional 40 mL IV nonionic contrast and 20 mL saline flush. These images were processed on a separate 3-D workstation. COMPARISON: 03/21/2014. CT HEAD FINDINGS: No contrast enhancing lesions. 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 Perfusion scan appears normal except in the old left cerebellar infarct. CT ANGIOGRAM HEAD FINDINGS: Calcified atherosclerotic plaque in the carotid siphons causing at most mild stenosis. No arterial occlusion or intra-arterial thrombus. No aneurysm. No change. Venous circulation is unremarkable. CT ANGIOGRAM NECK FINDINGS: Right carotid artery: Calcified plaque distal common carotid and proximal internal carotid artery. No significant stenosis. Left carotid artery: Calcified plaque distal common carotid and proximal internal carotid artery. No significant stenosis. Vertebral arteries: Calcified atherosclerotic plaque distal left vertebral artery causing moderate stenosis. Moderate stenosis origin of the left vertebral artery caused by calcified atherosclerotic plaque. Other findings: Cervical degenerative changes. Spinal stenosis. Thyromegaly with no focal nodule. Impression: IMPRESSION: Atherosclerotic changes in the carotid bifurcations, carotid siphons and proximal and distal left vertebral artery. Moderate stenosis proximal and distal left vertebral artery. No vascular occlusion or thrombus. I discussed the findings with Dr. Justice Schaeffer at 2:55 p.m. on 04/11/2014. HALEIGH ARNOLD MD CT HEAD W/O CONTRAST Narrative: CT SCAN OF THE HEAD WITHOUT CONTRAST 04/11/2014, 2:39 PM HISTORY: Stroke. Slurred speech. Hypertension and transient ischemic attacks. Recently admitted on 03/21/2014 for acute right-sided weakness, aphasia and transient right eye vision loss. TECHNIQUE: Axial images of the head without IV contrast material. COMPARISON: 04/02/2014. FINDINGS: There is generalized atrophy of the brain. There is low attenuation in the white matter of the cerebral hemispheres consistent with sequelae of small vessel ischemic disease. Old infarct is seen in the left cerebellar hemisphere posteriorly and inferiorly. There is no evidence of intracranial hemorrhage, mass, acute infarct or anomaly. The visualized portions of the sinuses and mastoids appear normal. There is no evidence of trauma. Impression: IMPRESSION: 1. No acute abnormality. 2. Old infarct in the left inferior cerebellar hemisphere, unchanged. 3. Atrophy of the brain. White matter changes consistent with sequelae of small vessel ischemic disease. HALEIGH ARNOLD MD CT HEAD NECK ANGIO W/O & W CONTRAST Narrative: CT ANGIOGRAM OF THE HEAD AND NECK WITHOUT AND WITH CONTRAST 04/11/2014, 2:40 PM HISTORY: Previous transient ischemic attacks. Stroke symptoms with slurred speech today. TECHNIQUE: Precontrast localizing scans were followed by CT angiography with an injection of 70 mL Isovue-370 (accession [id number]), 50 mL Isovue-370 (accession [id number]) IV with scans through the head and neck. Images were transferred to a separate 3-D workstation where multiplanar reformations and 3-D images were created. Estimates of carotid stenoses are made relative to the distal internal carotid artery diameters except as noted. Perfusion scans were performed at three levels with injection of an additional 40 mL IV nonionic contrast and 20 mL saline flush. These images were processed on a separate 3-D workstation. COMPARISON: 03/21/2014. CT HEAD FINDINGS: No contrast enhancing lesions. 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 Perfusion scan appears normal except in the old left cerebellar infarct. CT ANGIOGRAM HEAD FINDINGS: Calcified atherosclerotic plaque in the carotid siphons causing at most mild stenosis. No arterial occlusion or intra-arterial thrombus. No aneurysm. No change. Venous circulation is unremarkable. CT ANGIOGRAM NECK FINDINGS: Right carotid artery: Calcified plaque distal common carotid and proximal internal carotid artery. No significant stenosis. Left carotid artery: Calcified plaque distal common carotid and proximal internal carotid artery. No significant stenosis. Vertebral arteries: Calcified atherosclerotic plaque distal left vertebral artery causing moderate stenosis. Moderate stenosis origin of the left vertebral artery caused by calcified atherosclerotic plaque. Other findings: Cervical degenerative changes. Spinal stenosis. Thyromegaly with no focal nodule. Impression: IMPRESSION: Atherosclerotic changes in the carotid bifurcations, carotid siphons and proximal and distal left vertebral artery. Moderate stenosis proximal and distal left vertebral artery. No vascular occlusion or thrombus. I discussed the findings with Dr. Justice Schaeffer at 2:55 p.m. on 04/11/2014. HALEIGH ARNOLD MD Most Recent Lab Results In [facility] (For Non-[facility] Providers): Most Recent 3 CBC's: Recent Labs Lab Test 04/11/14 1400 04/02/14 18403/27/14 0747 WBC 5.6 5.7 5.3 HGB 14.6 14.7 14.4 MCV 88 90 89 PLT 221 219 190 Most Recent 3 BMP's: Recent Labs Lab Test 04/12/14 0808 04/11/14 1400 04/02/14 1846 NA 138 137 139 POTASSIUM 4.7 4.8 4.3 CHLORIDE 109 103 101 CO2 23 26 26 BUN 23 34* 25 CR 1.17 1.33* 1.23 ANIONGAP 6 8 12 JADEN 8.8 9.5 9.3 GLC 86 86 82 Most Recent 3 Troponin's: Recent Labs Lab Test 04/11/14 1400 04/02/14 1846 03/21/14 1404 TROPI <0.012 <0.012 <0.012 Most Recent 3 INR's: Recent Labs Lab Test 04/13/14 0807 04/11/14 1400 04/02/14 1846 INR 1.58* 1.37* 2.26* Most Recent 2 LFT's: Recent Labs Lab Test 05/26/12 1340 AST 33 ALT 11 ALKPHOS 85 BILITOTAL 0.7 Most Recent Cholesterol Panel: Recent Labs Lab Test 03/21/14 1404 CHOL 117 LDL 56 HDL 38* TRIG 116 Most Recent 6 Bacteria Isolates From Any Culture (See EPIC Reports for Culture Details):No results found for this basename: CULT, in the last 43930 hours Most Recent TSH, T4 and HgbA1c: Recent Labs Lab Test 03/25/14 1125 03/21/14 1404 TSH -- 0.36* T4 -- 1.18 A1C 5.9 -- Meg Melgoza MD documented in this encounter Discharge Instructions Discharge InstructionsJulia Mead RN - 04/13/2014 4:47 PM CDT INR follow-up: call for an appointment for April 14 (Monday am) [facility] [address] [phone] If problems call [address] Technician at [facility] [phone] documented in this encounter Medications at Time of Discharge Medication Sig Dispensed Refills Start Date End Date aspirin 81 MG Take 1 tablet (81 mg) 30 tablet 0 04/13/2014 tabletIndications: TIA by mouth daily Stop on medication taking aspirin while on SUBQ lovenox injections. When lovenox is stopped start ababy aspirin PO daily lisinopril Take 20 mg by mouth 2 0 (PRINIVIL,ZESTRIL) 30 times daily MG tablet MAGNESIUM OXIDE PO Take 500 mg by mouth 0 every morning ROPINIROLE HCL PO Take 2 mg by mouth At 0 Bedtime (Takes 4 x 0.5mg tabs for a total of 2mg at bedtime) simvastatin (ZOCOR) 20 Take 20 mg by mouth 0 MG tablet every morning amLODIPine (NORVASC) 5 Take 1 tablet (5 mg) 30 tablet 0 02/201404/21/2014 MG tabletIndications: by mouth daily HTN (hypertension) ATENOLOL PO Take 100 mg by mouth 0 every morning cyanocobalamin [address] 2 tablets 30 tablet 0 03/27/20 14 04/21/2014 SUBLIndications: (1,000 mcg) under the Vitamin B12 deficiency tongue daily (non anaemic) enoxaparin (LOVENOX) Inject 0.8 mLs (120 10 Syringe 0 201306/20/2014 120 MG/0.8ML mg) Subcutaneous SOLNIndications: TIA on every 12 hours medication folic acid-vit B6-vit Take 1 tablet by 0 02/28/2016 B12 (FOLGARD) mouth daily 0.8-10-0.115 MG TABS GABAPENTIN PO Take 600 mg by mouth 0 0 12/19/2014 At Bedtime GABAPENTIN PO Take 300 mg by mouth 0 0 12/19/2014 every morning INDOMETHACIN Take 25 mg by mouth 3 0 0 05/16/2014 POIndications: Acute times daily (with Gouty Arthritis meals) levETIRAcetam 1000 MG Take 1,000 mg by 60 tablet 3 04/13/20 14 05/02/2014 TABSIndications: mouth 2 times daily Seizure (H) Multiple Vitamin Take 1 tablet by 0 (MULTI-VITAMIN) per mouth daily. tablet Pregabalin (LYRICA PO) Take 75 mg by mouth 0 02/28/2016 At Bedtime Riboflavin (VITAMIN B-2 Take 200 mg by mouth 0 06/22/2018 PO) 2 times daily warfarin (COUMADIN) 2.5 Take 1 tablet (2.5 60 tablet 2 03/2409/30/2014 MG tabletIndications: mg) by mouth daily TIA on medication Take 10mg po tonight and recheck INR tomorrow documented as of this encounter Progress Notes Julia Mead RN - 04/13/2014 4:28 PM CDT Family does not want to go back to original clinic for INR followup. [facility]. They would not make an appointmentfor patient but said for the patient to call the clinic in the am to get one. Patient and updated. Told them if they have problems to call in the am to talk to [address]. Will update dc instructions with [facility] information. ILT Demetrius Ramirez MD - 04/13/2014 11:24 AM CDT Neurology - other than fatigue, he is asymptomatic without further spells. This would be only the second day he is sx free since the end of February. Not sure if the Keppra is the reason for the cessation of his episodes but suspect it is why he feels fatigued. INR only 1.5 today. Plan: 1. Continue Keppra 1000 bid 2. Home when INR therapeutic 3. Follow up in 3-[address] Fox 4. 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 Self-Care Dominant Hand right Usual Activity Tolerance good Current Activity Tolerance moderate Regular Exercise no Activity/Exercise/Self-Care Comment Active around the house and work but little regular exercise (R) Functional Level Prior (R) Ambulation 0-->independent (R) Transferring 0-->independent (R) Toileting 0-->independent (R) Bathing 0-->independent (R) Dressing 0-->independent (R) Eating 0-->independent (R) Communication 0-->understands/communicates without difficulty (R) Swallowing 0-->swallows foods and liquids without difficulty (R) Cognition 0 - no cognition issues reported (R) Fall history within last six months no (R) Which of the above functional risks had a recent onset or change? none General Information Onset of Illness/Injury or Date of Surgery - Date 04/11/14 Referring Physician HERON Owen Patient/Family Goals Statement get back to his regular routine Pertinent History of Current Problem Admitted with dysarthriia, weakness. Looking at TIA vs seizure actvitity. Had similar episode last month. PMH includes neuropathy, HTN, TIA, CVI, GI surgery, restless leg syndrome Precautions/Limitations no known precautions/limitations Cognitive Status Examination Orientation orientation to person, place and time Level of Consciousness alert Follows Commands and Answers Questions 100% of the time Personal Safety and Judgment intact Memory intact Attention No deficits were identified Organization/Problem Solving No deficits were identified Executive Function No deficits were identified Visual Perception Visual Perception No deficits were identified (glasses for reading) Sensory Examination Sensory Comments some sensory loss from stroke 10 years ago, pt at baseline Pain Assessment Patient Currently in Pain No Range of Motion (ROM) ROM Quick Adds No deficits were identified ROM Comment B UEs Strength Manual Muscle Testing Quick Adds No deficits were identified Strength Comments B UEs Hand Strength Hand Strength Comments 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 strength 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 and equal Coordination Upper Extremity Coordination No deficits were identified Transfer Skill: Bed to Chair/Chair to Bed Level of [place]: Bed to Chair independent Transfer Skill: Sit to Stand Level of [place]: Sit/Stand independent Transfer Skill: Toilet Transfer Level of [place]: Toilet independent Lower Body Dressing Level of [place]: Dress Lower Body independent Instrumental Activities of Daily Living (IADL) Previous Responsibilities yardwork;medication management;finances;driving;work Activities of Daily Living Analysis ADL Comments pt appears at or near baseline for ADLS at this time General Therapy Interventions Intervention Comments No further OT needed, pt appears at baseline Clinical Impression Criteria for Skilled Therapeutic Interventions Met evaluation only OT Diagnosis decreased independence in ADLS Therapy Frequency other (see comments) Predicted Duration of Therapy Intervention (days/wks) eval only Anticipated Discharge Disposition home Risks and Benefits of Treatment have been explained. Yes Patient, Family & other staff in agreement with plan of care Yes Total Evaluation Time Total Evaluation Time (Minutes) 15 Lizy Grullon, SOCIAL INSURANCE ANALYST - 04/12/2014 3:47 PM CDT 04/12/14 1500 General Information Onset Date 04/11/14 Start of Care Date 04/12/14 Referring Physician Justice Murphy PA Patient Profile Review See Profile for full history and prior level of function Patient/Family Goals Statement To go home Swallowing Evaluation Bedside swallow evaluation Behaviorial Observations WNL (within normal limits) Mode of current nutrition Oral diet Type of oral diet Regular;Thin liquid Comments Mr. Marlene Mccall is a 64-year-old gentleman with past medical history significant for hypertension, grade II left ventricular diastolic dysfunction, remote CVA in 2001 and recurring TIAs that have failed Plavix and aspirin therapy, who presents to [facility] with recurrent slurred speech, aphasia and cognitive change. Oral Musculature Evaluation Oral Musculature generally intact Structural Abnormalities none present Dentition present and adequate Mucosal Quality good Mandibular Strength and Mobility intact Oral Labial Strength and Mobility WFL Lingual Strength and Mobility WFL Velar Elevation intact Buccal Strength and Mobility intact Volitional Abilities Cough;Throat clear;Swallow Clinical Swallow Eval: Thin Liquid Texture Trial Mode of Presentation, Thin Liquids cup;spoon;self-fed;fed by clinician Volume of Liquid or Food Presented 2 oz Oral Phase of Swallow WFL Pharyngeal Phase of Swallow (coughed x1 with 1/2 tsp from spoon) Diagnostic Statement incoordinated x1 with spooon, however all other trials of thin liquid present with no s/s of aspiration Clinical Swallow Eval: [place] Thick Liquid Texture Trial Mode of Presentation, [place] cup;spoon;self-fed;fed by clinician Volume of [place] Presented 4 tsp Oral Phase, [place] WFL Pharyngeal Phase, [place] intact Diagnostic Statement no overt s/s of aspiration Clinical Swallow Eval: Pudding Thick Liquid Texture Trial Mode of Presentation, [place]ud[place] spoon;self-fed;fed by clinician Volume of Pudding Presented 3 tsp Oral Phase, [place]ud[place] WFL Pharyngeal Phase, [place] intact Diagnostic Statement no s/s of aspiration Clinical Swallow Eval: Semisolid Texture Trial Mode of Presentation, Semisolid spoon;self-fed;fed by clinician Volume of Semisolid Food Presented 4 rosa Oral Phase, Semisolid WFL Pharyngeal Phase, Semisolid intact Diagnostic Statement no s/s of aspiration Clinical Swallow Eval: Solid Food Texture Trial Mode of Presentation, Solid self-fed Volume of Solid Food Presented 1/2 paz cracker Oral Phase, Solid WFL Pharyngeal Phase, Solid intact Diagnostic Statement residue cleared wtih liquid wash, no s/s of aspiration Oral Residue, Solid mid posterior tongue Swallow Compensations Swallow Compensations Alternate viscosity of consistencies;Pacing;Reduce amounts;Multiple swallow Results (verbal cues to decrease rate were successful) General Therapy Interventions Planned Therapy Interventions Dysphagia Treatment Dysphagia treatment Instruction of safe swallow strategies Swallow Eval: Clinical Impressions Skilled Criteria for Therapy Intervention Skilled criteria met. Treatment indicated. Dysphagia Outcome Severity Scale (KRZYSZTOF) Level 6 - KRZYSZTOF Treatment Diagnosis Mild oral pharyngeal dysphagia Diet texture recommendations Regular diet;Thin liquids Recommended Feeding/Eating Techniques alternate between small bites and sips of food/liquid;maintainupright posture during/after eating for 30 mins;no straws;small sips/bites Rehab Potential good, to achieve stated therapy goals Demonstrates Need for Referral to Another Service occupational therapy;physical therapy Therapy Frequency (daily) Predicted Duration of Therapy Intervention (days/wks) 1-2 meal follow up tx sessions Anticipated Discharge Disposition home Risks and Benefits of Treatment have been explained. 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 Patient presents with mildoral pharyngeal dysphagia. Family present. Pt presents with mild to moderate dysarthria. Pt states he has noticed he's been more uncoordinated lately with fine and gross motor tasks. ST educated pt andfamily on the swallow mechanism and the signs and symptoms of swallow incoordination. Pt coughed x1 with 1/2 tsp of water, stating I inhaled the water from the spoon and it went down the wrong pipe. Pt tolerated further trials of thin with a cup- ST instructed small sips and double swallows. No further s/s of aspiration noted with thin liquid. Pt safely tolerated nectar, pudding, semi solids and reg ular solids- no s/s of aspiration noted. ST instructed pt and family to follow safe swallow strategies including: decreasing rate, small bites/sips, alternate liquids and solids, double swallows, and upright for meals. Recommend: Cont regular diet with thin liquids, follow safe swallow strategies and be alerted to any red flags (discussed during the evaluation)during mealtimes, ST return 04/13 for meal follow up. D/C home. Total Evaluation Time Total Evaluation Time (Minutes) 25 Meg Melgoza MD - 04/12/2014 1:58 PM CDT [facility] Hospitalist Progress Note Meg Melgoza MD pager [phone] Interval History: Pt is having EEG. No complaints. No acute events Assessment and Plan: Mr. Marlene Mccall is a pleasant 64-year-old gentleman with past medical history significant for hypertension, cerebrovascular accident, transient ischemic attack and grade II left ventricular diastolic dysfunction who presents to [facility] with continuing signs of possible transient ischemic attack that has failed outpatient management. Further workup will be required to delineate the exact etiology for ongoing symptoms. PLAN: 1. Possible continuing transient ischemic attack versus seizure: Pt had extensive neurological work up recently On coumadin plus baby aspirin Started on heparin drip for bridging as INR subtherapeutic Neurology consulted and are following Keppra increased to 1000mg PO BID today Pt had weakly positive PFO on BRISA recently Loop receorder in place. 2. Hypertension. Prior to admission atenolol, lisinopril, amlodipine continued with hold parameters. 3. Dyslipidemia. Prior to admission simvastatin continued. 4. Restless legs. The patient has quite significant restless legs, particularly on the right side. Prior to admission medical regimen is somewhat unorthodox and includes gabapentin and Lyrica and Requip. At present time will defer continuation of gabapentin in favor of continuing Lyrica plus Requip. Will defer to Neurology for further management. 5. Chronic renal insufficiency. The patient's creatinine is a bit elevated at 1.33, but his baselineappears to be 1.2-1.3. Will gently hydrate overnight. Avoid nephrotoxins. Monitor. 6. Diastolic dysfunction. Appears euvolemic and compensated. Will continue to monitor for decompensation. Telemetry. 7. CODE STATUS: Full. 8. Deep venous thrombosis prophylaxis with heparin. Dispo; when INR therapeutic per Neurology Physical Exam: Blood pressure 114/62, temperature 97.7 ??F (36.5 ??C), temperature source Oral, resp. rate 16, height 1.854 m (6' 1), weight 113.6 kg (250 lb 7.1 oz), SpO2 97 %. Filed Vitals: 04/11/14 1345 04/12/14 0339 Weight: 113.399 kg (250 lb) 113.6 kg (250 lb 7.1 oz) Vital Signs with Ranges Temp: [97.3 ??F (36.3 ??C)-98.4 ??F (36.9 ??C)] 97.7 ??F (36.5 ??C) Heart Rate: [48-56] 54 Resp: [16-18] 16 BP: (98-127)/(44-82) 114/62 mmHg SpO2: [95 %-99 %] 97 % I/O's Last 24 hours I/O last 3 completed shifts: In: 450 [I.V.:450] Out: - Constitutional: Awake, alert, cooperative, no apparent distress Lungs: Clear to auscultation bilaterally, no crackles or wheezing Cardiovascular: Regular rate and rhythm, normal S1 and S2, and no murmur noted Abdomen: Normal bowel sounds, soft, non-distended, non-tender Skin: No rashes, no cyanosis, no edema Other: Medications: ??? levETIRAcetam 1,000 mg Oral BID ??? aspirin EC 81 mg Oral Daily ??? warfarin 10 mg Oral ONCE at 18:00 ??? amLODIPine 5 mg Oral Daily ??? atenolol (TENORMIN) tablet 100 mg 100 mg Oral QAM ??? cyanocobalamin 1,000 mcg Sublingual Daily ??? folic acid-vit B6-vit B12 1 tablet Oral Daily ??? lisinopril 30 mg Oral BID ??? magnesium oxide 400 mg Oral QAM ??? pregabalin (LYRICA) capsule 75 mg 75 mg Oral At Bedtime ??? rOPINIRole (REQUIP) tablet 1 mg 1 mg Oral At Bedtime ??? simvastatin 20 mg Oral At Bedtime ??? sodium chloride (PF) 3 mL Intravenous Q8H PRN Meds: Warfarin Therapy Reminder, acetaminophen, acetaminophen, oxyCODONE, naloxone, No Medication Sleep Aids for this Patient, senna-docusate, polyethylene glycol, ondansetron, ondansetron, LORazepam, Lidocaine, lidocaine 4 %, sodium chloride (PF), - MEDICATION INSTRUCTIONS -, phosphate Data: All new lab and imaging data was reviewed. Recent Labs Lab Test 04/11/14 1400 04/02/14 1846 03/27/14 0747 WBC 5.6 5.7 5.3 HGB 14.6 14.7 14.4 MCV 88 90 89 PLT 221 219 190 INR 1.37* 2.26* 2.09* Recent Labs Lab Test 04/12/14 0808 04/11/14 1400 04/02/14 1846 NA 138 137 139 POTASSIUM 4.7 4.8 4.3 CHLORIDE 109 103 101 CO2 23 26 26 BUN 23 34* 25 CR 1.17 1.33* 1.23 ANIONGAP 6 8 12 JADEN 8.8 9.5 9.3 GLC 86 86 82 Recent Labs Lab Test 04/11/14 1400 04/02/14 1846 03/21/14 1404 TROPI <0.012 <0.012 <0.012 Vannessa Robles, PT - 04/12/2014 1:44 PM CDT 04/12/14 1300 Signing Clinician's Name / Credentials Signing clinician's name / credentials vannessa Robles Functional Gait Assessment Gait Level Surface 3 Change in Gait Speed 3 Gait and Horizontal Head Turns 3 Gait and Pivot Turn 3 Gait with Vertical Head Turns 2 Step Over Obstacle 3 Gait with Narrow Base of Support 2 Gait with Eyes Closed 2 Ambulating Backwards 3 Steps 3 Total Functional Gait Assessment Score Total Score (out of 30) 27 Sandra Green - 04/12/2014 10:32 AM CDT #[id number] EEG performed on cooperative, awake, alert, drwsy, sleeping patient. Photic performed. Ordered by Dr Schaeffer and Dr Ramirez following on weekend. Demetrius Agarwal MD - 04/12/2014 9:59 AM CDT Neurology - patient seen during EEG this morning. Interviewed along with his . CT/CTA from yesterday reviewed as well as his MRI, Echocardiogram, CT/CTA and workup from earlier this month. INR yesterday was only 1.37 upon admission. His sx yesterday were not of dysarthria but more of language difficulty, confusion, and later, lethargy. Agree with Dr. Schaeffer that these are less suggestive of stroke although sub-therapeutic INR generates some suspicion. I am equally suspicious of focal seizure activity as well and doubt migraine. His EEG today is non-specific showing a little bi-temporal theta slowing but no overt seizure activity. Recommendation: 1. will continue heparin and coumadin until his INR is once again therapeutic 2. Continue ASA 81 mg as well 3. Will increase his levetiracetam to 1000 mg bid (had only taken one dose of 500 mg ana laura prior to onset of sx yesterday) 4. Await interrogation of his implanted loop recorder. Raegan Moran RN - 04/11/2014 5:30 PM CDT psychiatric tech called stating that she received 2 orders for an EEG to be performed on patient. One STAT, one Routine. I informed the tech that the EEG could be done routine per 's orders. documented in this encounter H&P Notes Justice Murphy PA - 04/11/2014 4:45 PM CDT Name: MARLENE MCCALL Account: [id number] : 1950 Admitted: [id number] PRIMARY CARE PHYSICIAN: Abbe Charles MD. NEUROLOGIST: Radha Milligan MD and Fracisco Fox MD. CHIEF COMPLAINT: Slurred speech. HISTORY OF PRESENT ILLNESS: Mr. Marlene Mccall is a 64-year-old gentleman with past medical history significant for hypertension, grade II left ventricular diastolic dysfunction, remote CVA in 2001 and recurring TIAs that have failed Plavix and aspirin therapy, who presents to [facility] with recurrent slurred speech, aphasia and cognitive change. The patient was admitted at the end of 01/2014 secondary to right arm weakness, aphasia and transient left vision loss. He was thought to have failed Plavix and aspirin for prevention of TIA and thus transitioned to Coumadin. He unfortunatelyhas continued to have recurrent symptoms almost daily. His reports that he has had only 1 day symptom free since discharge. During the first week following discharge he had some dizziness and slurred speech and thus presented to [facility]. Baby aspirin was added to Coumadin dosing. Unfortunately, the patient has had continued symptoms with almost daily and dizziness, speech change and cognitive loss, and on Monday presented to Dr. Fox's office. The differential was discussed and included seizure versus migraine; however, Dr. Fox continued to feel that this was likely TIA. The patient followed with his primary care provider on Monday for an INR check and this was 1.9 and this patient's Co umadin dose was increased. Unfortunately, despite the increase in Coumadin the patient's INR has remained subtherapeutic and actually is trending down. Today the patient woke up and was noted to have some aphasia, transient left-sided vision loss and right-sided weakness and word finding difficulties.Family reports that the word finding has been progressive and worsening even since discharge. Word finding difficulties include expressive aphasia but also some slowing of cognition and some short-termmemory loss. The patient also notes that he has been profoundly fatigued on an almost daily basis. Due to the continuing symptoms, Dr. Fox placed the patient on Keppra, which was started last night.The patient has had 2 doses; however, this morning he had the symptoms and thus when instructed to present to the ER. In the ER he was evaluated and a basic metabolic panel was within normal limits. Troponin was less than 0.012. INR was 1.37. Creatinine is a bit elevated at 1.32. This appears to be roughly within the patient's baseline. A CT of the head showed an old infarct in the left cerebellum and the CTA showed moderate stenosis of the proximal left vertebral artery. No evidence for new bleed. An MRI was contraindicated as the patient currently has a loop recorder which was placed in early March to try and rule out cardiac etiology for his recurring symptoms. The patient was evaluated by Dr. Scheaffer, who currently continues to maintain differential that is seizure versus migraine. Loading doseof Keppra has been ordered but has not yet been hung. The patient denies any recent shortness of breath or chest pain. He mainly notes the aforementioned fatigue, word finding difficulties, memory loss, dizziness, right-sided weakness, slurred speech and vision change. He has baseline restless legs that are very bothersome but have been present for roughly 11 years and affects mainly his right leg. He denies any recent dysuria, abdominal pain or increase in his restless legs symptoms. PAST MEDICAL HISTORY: 1. Hypertension. 2. TIA that failed Plavix and aspirin therapy. Admitted in the end of 02/2014 and transitioned to Coumadin. Ultimately also had aspirin added due to continuation of symptoms. Follows with Dr. Fox. 3. Cerebellar CVA in 2001 with trace left-sided weakness. Suspected to be cardioembolic as the patient has a known PFO. 4. Dyslipidemia. 5. Grade II left ventricular diastolic dysfunction. Echocardiogram on 03/23/2014 showed an EF of 60%-65% with grade II left ventricular diastolic dysfunction. Wall motion abnormalities were unable to be assessed. The patient had a mildly positive bubble study suggestive of PFO in addition to mild pulmonary arterial hypertension. 6. Restless legs syndrome. The patient is on a fairly atypical regimen of gabapentin, Lyrica and Requip at bedtime. 7. Neuropathy. 8. Chronic renal insufficiency with a baseline creatinine 1.2-1.3. PAST SURGICAL HISTORY: 1. Sigmoid colectomy secondary to diverticulitis. 2. Right neck cyst excision. 3. Implantation of a loop recorder on 03/25/2014. SOCIAL HISTORY: The patient is with several children. He lives at home with his . 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 He is a lifelong nonsmoker and rarely drinks alcohol. FAMILY HISTORY: Sister had a CVA at age 54 and . She was also diabetic. Father had an MA and at 63. Mother had throat cancer and at 63. PRIOR TO ADMISSION MEDICATIONS: 1. Amlodipine 5 mg daily. 2. Aspirin 81 mg daily. 3. Atenolol 100 mg every morning. 4. Cyanocobalamin 1000 mcg daily. 5. Folic acid daily. 6. Gabapentin 300 mg in the morning, 600 mg at bedtime. 7. Indomethacin 25 mg 3 times daily with meals. 8. Keppra 500 mg twice daily. 9. Lisinopril 30 mg twice daily. 10. Magnesium oxide 500 mg every morning. 11. Multivitamin daily. 12. Lyrica 75 mg at bedtime. 13. Vitamin B2 at 200 mg twice daily. 14. Requip 1 mg at bedtime. 15. Zocor 20 mg at bedtime. 16. Coumadin 5 mg every other day interchanging with 7.5 mg. ALLERGIES: No known drug allergies. REVIEW OF SYSTEMS: A 10-point review of systems was undertaken with pertinent positives and negatives as above and otherwise unremarkable. PHYSICAL EXAMINATION: VITAL SIGNS: Blood pressure when 122/67, heart rate 54, respirations 18, SpO2 is 98% on room air, temperature 97.7. GENERAL: Mr. Mccall is a pleasant 64-year-old gentleman who appears in no distress. Somewhat fatigued and somnolent. Interactive and communicative, however. Resting comfortably. Has fairly frequent tremors of his right lower extremity. HEENT: Normocephalic, atraumatic with extraocular muscles intact bilaterally and lids and sclerae are clear. Pupils equal, round, react to light. Under light noted. Dentition poor. NECK: Supple, with no adenopathy. LUNGS: Clear bilaterally with symmetric expansion and no wheeze or crackle. CARDIOVASCULAR: Heart is regular but distant with no appreciated murmur. ABDOMEN: Soft, nontender, nondistended. MUSCULOSKELETAL: Moving extremities x4 with CMS seemingly intact x4. The patient has 5/5 strength inthe bilateral lower extremity flexors and extensors, including the quadriceps, psoas, gastrocnemius,EHL and tibialis anterior. Sensation is intact in lower extremity dermatomes. He does have some bilateral triceps weakness in addition to some trace thenar weakness exam on the left. He has symmetric bulk and tone of the extremities. No rashes or lesions appreciated. NEUROLOGIC: Alert and oriented with cranial nerves II-XII grossly intact and symmetric. No pronator drift. [id number] exam unremarkable. Deep tendon reflexes are 1+ bilaterally in the patellae and biceps. No significant focal change. LABORATORY DATA: Sodium 137, potassium 4.8, chloride 103, bicarbonate 26, BUN 34, creatinine 1.33, GFR 54, glucose 86. Troponin less than 0.012. WBC 5.6, hemoglobin 14.6, platelets 221,000. INR 1.37. IMAGING: CT of the head showing no contrast-enhancing lesion with an old infarct in the inferior left cerebellar hemisphere. CTA of the head and neck showing atherosclerotic change of the carotid bifurcations and proximal and distal left vertebral artery with moderate stenosis of the left vertebral artery, but no vascular occlusion or thrombus. Calcified atherosclerotic plaque was seen in the carotidsiphons causing mild stenosis at most. No aneurysm. ASSESSMENT: Mr. Marlene Mccall is a pleasant 64-year-old gentleman with past medical history significantfor hypertension, cerebrovascular accident, transient ischemic attack and grade II left ventricular diastolic dysfunction who presents to [facility] with continuing signs of possible transient ischemic attack that has failed outpatient management. Further workup will be required to delineate the exact etiology for ongoing symptoms. PLAN: 1. Possible continuing transient ischemic attack. The patient was thought to failed Plavix and aspirin and thus was transitioned to Coumadin and then ultimately to Coumadin plus aspirin. He has continued to have symptoms despite aggressive anticoagulation. Does not appear to have had a vasculitis workup. Also, no formal EEG. Differential does include seizure versus atypical migraine versus ongoing TIA due to subtherapeutic INR versus some sort of undiagnosed vasculitis. Will initiate heparin drip aspatient is subtherapeutic. Neurology consulted. EEG ordered. The patient's signs and symptoms that include progressive cognitive decline and also profound fatigue may suggest some sort of postictal phase. MRI cannot be ordered to assess for stroke as patient currently has a loop recorder to assess forsome sort of cardiac etiology for his recurring stroke-like symptoms. Will defer to Neurology for further management and workup. Please note the patient's Coumadin level has been very labile and patient is having difficulty maintaining a therapeutic INR despite aggressive dosing. Could consider transition to a newer anticoagulant, but will defer to Neurology. 2. Hypertension. Prior to admission atenolol, lisinopril, amlodipine continued with hold parameters. 3. Dyslipidemia. Prior to admission simvastatin continued. 4. Restless legs. The patient has quite significant restless legs, particularly on the right side. Prior to admission medical regimen is somewhat unorthodox and includes gabapentin and Lyrica and Requip. At present time will defer continuation of gabapentin in favor of continuing Lyrica plus Requip. Will defer to Neurology for further management. 5. Chronic renal insufficiency. The patient's creatinine is a bit elevated at 1.33, but his baselineappears to be 1.2-1.3. Will gently hydrate overnight. Avoid nephrotoxins. Monitor. 6. Diastolic dysfunction. Appears euvolemic and compensated. Will continue to monitor for decompensation. Telemetry. 7. CODE STATUS: Full. 8. Deep venous thrombosis prophylaxis with heparin. This case was discussed with Dr. Meg Melgoza of the Hospitalist Service, who agrees with above assessment and plan. MEG MELGOZA MD As dictated by JUSTICE MURPHY MS, PA-C MT: TE Document: [id number] cc: Abbe Charles MD Associated attestation - Meg Melgoza MD - 05/08/2014 7:32 AM CDT I, Meg Melgoza, saw and evaluated Marlene Mccall as part of a shared visit. I have reviewed and discussed with the advanced practice provider their history, physical and plan. I personally reviewed the vital signs, medications, labs and imaging. My [place] history or physical exam findings: . Possible continuing transient ischemic attack versus seizure: Pt had extensive neurological work up recently On coumadin plus baby aspirin Started on heparin drip for bridging as INR subtherapeutic Neurology consu. Possible continuing transient ischemic attack versus seizure: Pt had extensive neurological work up recently On coumadin plus baby aspirin Started on heparin drip for bridging as INR subtherapeutic Neurology consulted and are following Keppra increased to 1000mg PO BID today Pt had weakly positive PFO on BRISA recently Loop receorder in place. HTN Restless legs Hyperlipidemia [place] management decisions made by me: Heparin drip per NEurology EEG NEurology consult No MRI as pt has loop recorder in place Continue PLEXIGLAS FORMER BP meds and statin Patient is seen and examined by me independently from the PA and agree with their assessment and plan as documented. MD Meg JUSTICE MD 05/08/2014 documented in this encounter Procedure Notes Demetrius Ramirez MD - 04/12/2014 12:24 PM CDTAssociated Order(s): EEG ELECTROENCEPHALOGRAM ORDERING PHYSICIAN: Demetrius Ramirez MD EEG #[id number] This is a spontaneous waking and drowsy record on Marlene Mccall, a 64-year-old gentleman referred for evaluation of paroxysmal episodes of language difficulties and confusion. MEDICATIONS at the time of the record include Norvasc, Tenormin, Keppra, aspirin, heparin, Zestril, and Requip The study reveals a fairly well-developed dominant rhythm of 11 Hz alpha activity seen symmetricallyin the posterior regions attenuating with eye opening. Beta activity is seen symmetrically in the frontal region bilaterally. Throughout the entire recording, there is the appearance of excessive bihemi spheric and bitemporal theta slowing of low to moderate voltage. This appears to be perhaps slightlymore prominent on the left than the right, but really there is no clear lateralization or localization. EKG monitoring done throughout the course of the record reflects a regular rhythm. There are occasional premature contractions noted. Photic stimulation is performed and produces some symmetrical driving responses at the upper flash frequencies. No other abnormalities are identified. IMPRESSION: Minimally abnormal waking record because of the appearance of excessive bihemispheric slowing, possibly consistent with drowsiness. No focal or epileptiform activity is noted. DEMETRIUS RAMIREZ MD [place]: [facility] [place] Name: MARLENE MCCALL MRN: [id number] Account: [id number] : 1950 Procedure Date: 04/12/2014 Document: [id number] documented in this encounter Consult Notes Justice Schaeffer MD - 04/11/2014 5:11 PM CDT REFERRING PHYSICIAN: Dr. Patel. REASON FOR CONSULTATION: Code Stroke. HISTORY OF PRESENT ILLNESS: Marlene Mccall is a 64-year-old gentleman who is actually well known to our Neurology Service with recent hospitalizations for intermittent episodes of dysarthria. The patient has had a full workup with no clear evidence of any stroke and has been started on anticoagulation despite no evidence of any cardioembolic source with a loop recorder having been placed. In that setting, he came in again today having awakened with dysarthria. In talking to his family it does not actually sound like dysarthria. He has a hard time processing his thoughts. In that setting, the patient isbeing admitted to the hospital. PAST MEDICAL HISTORY: Hypertension, neuropathy, recent episodes of multiple spells of speech difficulties. SOCIAL HISTORY: Patient is not a tobacco user, he rarely drinks alcohol. FAMILY HISTORY: There is no significant family history of premature cerebrovascular or cardiovascular disease. HOME MEDICATIONS: Please see Epic. They are all accurate. PHYSICAL EXAMINATION: GENERAL: I saw the patient in the emergency room on arrival. VITAL SIGNS: Patient's blood pressure was 115/78, heart rate was 50 and regular, respiratory rate was 16, temperature 97.7. NEUROLOGICAL: The patient had no dysarthria. He had no specific aphasia but when asked to interpret a Proverb he had difficulty, on more complex reasoning tasks he had difficulty. However, he knew the president and the definition of an island. Orientation and attention span were intact. Cranial nervesII-XII are intact. On general motor survey the patient had normal muscle bulk, tone and strength in all 4 extremities. Reflexes were normal bilaterally, symmetric in the upper and lower extremities. Plantar response is flexor bilaterally. Gait examination was not tested due to emergency room status. Coordination testing with [id number] and rapid-alternating movements was normal. Sensation to light touch was normal in all 4 extremities. IMPRESSION: I saw the patient in the setting of code stroke. This is not a code stroke. He does not appear to be having a stroke. I am suspicious that this either represents seizures or a migraine variance. Dr. Fox started Keppra 500 mg yesterday, he. Has only received 1 dose. I have given an additional 750 in the emergency room and continue with 500 b.i.d. Patient will have an EEG and be seen by Dr. Ramirez tomorrow. If no improvement, consideration with treatment with migraine preventive couldbe undertaken. The family is not comfortable with going home and this would be inpatient management. DIAGNOSIS: Possible seizure. JUSTICE SCHAEFFER MD MT: [email or web address] Name: MARLENE MCCALL Account: [id number] : 1950 Consult Date: 04/11/2014 Document: [id number] documented in this encounter ED Notes Gali Mercado RN - 04/11/2014 3:28 PM CDT Critical Care Time (RN) Mins:[id number] Damian Singh RN - 04/11/2014 2:02 PM CDT amee Yoder Jodi, RN, and daughter at bedside. Jose Patel MD - 04/11/2014 2:01 PM CDT History Chief Complaint: Slurred Speech History provided by the patient's . STEPHY Mccall is a 64 year old male with history of HTN and TIAs who presents with slurred speech. The patient was recently admitted on 03/21/14 for acute right sided weakness, aphasia, and transient vision loss in the right eye. The patient has discontinued his Plavix and Aspirin, and was placed on Coumadin and Heparin. On 04/02/14 the patient had a cardiac loop monitoring chip placed, however they have not found dysrhythmia after the initial query. The patient was evaluated on 04/07/[address] Fox and the following day his TIAs started back up again. states she called Dr. Fox's office on 04/09 which resulted in a medication change. is not able recall the medication change. She also no daniel the patient was placed on Keppra last night for possible seizures. At approximately 6 AM this morning the patient woke up with slurred speech. notes the patient was restless all night. She denies any signs of facial asymmetry. Per the patient, he states he felt weak this morning and it felt like my legs would give out on me. Currently here in the ED the patient states he is able to ambulate. He denies light headedness, dizziness, seizures, neck pain, or headache at this time. The patient does endorse numbness which is residual from a previous stroke. The patient voices no other complaints at this time. Allergies: NKDA Medications: Coumadin Aspirin Indomethacin Amlodipine Atenolol Gabapentin Magnesium oxide Cyanocobalamin Lyrica Ropinirole Lisinopril Zocor Past Medical History: Neuropathy HTN TIA Past Surgical History: GI surgery Resection abdominal perineal Colonoscopy Family History: The patient denies a pertinent family history. Social History: Marital status: Tobacco use: negative Alcohol use: negative Patient presents to the ED with . Review of Systems Constitutional: Negative for fever. HENT: Negative for neck pain. Neurological: Positive for speech difficulty and weakness. Negative for dizziness, seizures, facial asymmetry, light-headedness and headaches. Psychiatric/Behavioral: Positive for sleep disturbance. All other systems reviewed and are negative. Physical Exam First Vitals: BP: 114/64 mmHg Heart Rate: 50 Temp: 97.7 ??F (36.5 ??C) Resp: 18 Height: 185.4 cm (6' 1) Weight: 113.399 kg (250 lb) SpO2: 97 % Physical Exam General: Resting on the gurney, mild dysarthria Head: The scalp, face, and head appear normal Eyes: The pupils are equal, round, and reactive to light There is no nystagmus Extraocular muscles are intact No visual field cut noted Conjunctivae and sclerae are normal ENT: The nose is normal Pinnae are normal The oropharynx is normal Uvula is in the midline Neck: Normal range of motion There is no nuchal rigidity noted There is no midline cervical spine pain/tenderness No mass is detected CV: Regular rate and underlying rhythm There is no evidence of Atrial Fibrillation Normal S1 and S2 No S3 or S4 No pathological murmur detected A chip/recorder has been implanted in the left anterior chest Resp: Lungs are clear There is no tachypnea Non-labored breathing No rales No wheezing GI: Abdomen is soft, there is no rigidity No distension No tympani No rebound tenderness Non-surgical without peritoneal features MS: No major joint effusions No asymmetric leg swelling No calf tenderness Skin: No rash or acute skin lesions noted Neuro: NIHSS: LOC: Alert Answers questions correctly Obeys commands correctly Gaze: Normal. No palsy or forced deviation Visual: No visual loss, no hemianopsia Facial: Normal. No obvious facial palsy Motor: No drift, weakness, all four extremities tested Ataxia: No limb ataxia Sensory: Normal Speech: Mild aphasia Mild dysarthria Inattention: No neglect Total: 1 (aphasia may be new, mild lisp is chronic per family) Psych: Awake. Alert. Normal affect. Appropriate interactions. Lymph: No anterior or posterior cervical lymphadenopathy noted Emergency Department Course Imaging: CT Head w/ Contrast: IMPRESSION: Atherosclerotic changes in the carotid bifurcations, carotid siphons and proximal and distal left vertebral artery. Moderate stenosis proximal and distal left vertebral artery. No vascular occlusion or thrombus. I discussed the findings with Dr. Justice Schaeffer at 2:55 p.m. on 04/11/2014. HALEIGH ARNOLD MD CT Head w/o Contrast: IMPRESSION: 1. No acute abnormality. 2. Old infarct in the left inferior cerebellar hemisphere, unchanged. 3. Atrophy of the brain. White matter changes consistent with sequelae of small vessel ischemic disease. HALEIGH ARNOLD MD CT Head Neck Angio w/o & w/ Contrast: IMPRESSION: Atherosclerotic changes in the carotid bifurcations, carotid siphons and proximal and distal left vertebral artery. Moderate stenosis proximal and distal left vertebral artery. No vascular occlusion or thrombus. I discussed the findings with Dr. Justice Schaeffer at 2:55 p.m. on 04/11/2014. HALEIGH ARNOLD MD Radiographic findings were communicated with the patient and family who voiced understanding of the findings. Laboratory: BMP: Cr 1.33 (high) BUN 34 (high) GFR 54 (low) Rest WNL CBC: WBC 5.6 (WNL) HGB 14.6 (WNL) PLT 221 (WNL) Rest WNL INR: 1.37 (high) PTT: 34 (WNL) Troponin: <0.012 (WNL) I personally reviewed the laboratory results with the Patient and spouse and answered all related questions prior to admission. Interventions: NS, 1 L, IV Keppra, 750 mg, IV ED Course: The patient was roomed. The patient was placed on pulse oximetry. Patient was placed on continuous monitoring manager. The patient's medical charts were reviewed and I examined the patient. 2:45 PM - I discussed the case with Dr. Schaeffer, who feels that this may represent aphasia. She discussed the case with Dr. Fox in detail who believes there is a possibility of intermittent seizures.This is why the Keppra was initiated. She requested admission to the hospitalist for further management and suggested intravenous Keppra loading. 3:12 PM - I spoke with the hospitalist, Dr. Melgoza, who has accepted the patient for admission. Findings and plan explained to the Patient and spouse who consents to admission. Discussed the patient with Dr. Melgoza, who will admit the patient for further monitoring, evaluation, and treatment. Impression & Plan Medical Decision Making: This patient is a 64 year old male who presents with mild aphasia/dysarthria. He has a complex history that can be noted in the medical record. The patient presented with 8 hours of symptoms, possibly concerning for a wake up stroke. He underwent acute CT scan protocol. No acute bleed or blockage was noted. Neurology was involved very early. The patient is not a tPA candidate. There has been some concern about the possibility of occult seizures in this patient as well. The patient will be admitted to the hospital for further management for TIA versus atypical migraine versus occult seizures. He will be monitored on the neurology floor. His laboratories do show some evidence of prerenal azotemia and chronic renal insufficiency. His INR is sub therapeutic at this time. His screening troponin is negative. Diagnosis: 1. Possible TIA 2. Aphasia/dysarthria (784.3) Disposition: Admit to Dr. Melgoza with Dr. Schaeffer consulting. Critical Care Time: 45 minutes. Robyn Rolon am serving as a scribe on 04/11/2014 at 2:01 PM to personally document services performed by Dr. Patel based on my observations and the provider's statements to me. Jose Patel MD 04/12/14 0026 documented in this encounter Miscellaneous Notes Plan of Care - Jessica Hall, SOCIAL INSURANCE ANALYST - 04/14/2014 11:21 AM CDT Problem: General Rehab Plan of Care Goal: Speech Language Pathology Goals The patient and/or their sales representative electric service will achieve their patient-specific goals related to the plan of care. The patient-specific goals include: Pt to be seen daily, for 1-2 meal follow up sessions, to achievethe following goals: 1. Pt will safely tolerate regular diet and thin liquids, using safe swallow strategies including decrease rate, small sips/bites, upright for meals, no straws with no s/s of aspiration. 2. Pt and family will verbalize understanding of all safe swallow strategies. Speech Language Therapy Discharge Summary Reason for therapy discharge: Discharged to home with outpatient therapy. Progress towards therapy goal(s): Goals partially met. Barriers to achieving goals: discharge from facility. Pt was tolerating a regular diet with thin liquids at d/c. Therapy recommendation(s): Continued therapy is recommended. Rationale/Recommendations: To improve dysarthria. . Plan of Care - Gabriel Ruiz RN - 04/13/2014 6:31 PM CDT Problem: IP GENERAL POC-ADULT,OB,BEHAVIORAL FVCPM Goal: Individualization/Patient-Specific Goal (Adult,OB,Behavioral The patient and/or their sales representative electric service will achieve their patient-specific goals related to the plan of care. The patient-specific goals include: 1.) pt admitted for asphasia, weakness on 04/11/14 2.) pt (code status TBD), NKDA, fall risk 3.) pain goal: less than 5 4.) Past Medical History: Neuropathy HTN TIA 5.) Past Surgical History: GI surgery Resection abdominal perineal Colonoscopy 6.) Pt lives at home with spouse; plan dc to home Outcome: Adequate for Discharge Date Met: 04/13/14 Pt alert and oriented x4. VSS. Tele SBD with a BBB. Speech a little slurred, neuros otherwise intact. No seizure activity observed. CMS with baseline n/t in l hand and foot. Strength 5/5 x4 extremities. Lung sounds clear. Voiding without difficulty. Ambulating independently. Reviewed lovenox teaching materials and demonstrated injection technique to pt and his spouse. Pt reports that his niece, an MANAGER IMAGING, will be coming to his house 2x a day to administer lovenox. Reviewed written d/c instructions and follow-up appointments with pt and his spouse. D/[facility] home. Pt alert and in good spirits at time of discharge. Goal: Discharge Planning (Adult, OB, Behavioral, Peds) Outcome: Adequate for Discharge Date Met: 04/13/14 Goal: Plan of Care Review (Adult,OB,Behavioral) The patient and/or their sales representative electric service will communicate an understanding of their plan of care. Outcome: Adequate for Discharge Date Met: 04/13/14 Plan of Care - Damian Bernstein RN - 04/13/2014 1:55 PM CDT Problem: IP GENERAL POC-ADULT,OB,BEHAVIORAL FVCPM Goal: Individualization/Patient-Specific Goal (Adult,OB,Behavioral The patient and/or their sales representative electric service will achieve their patient-specific goals related to the plan of care. The patient-specific goals include: 1.) pt admitted for asphasia, weakness on 04/11/14 2.) pt (code status TBD), NKDA, fall risk 3.) pain goal: less than 5 4.) Past Medical History: Neuropathy HTN TIA 5.) Past Surgical History: GI surgery Resection abdominal perineal Colonoscopy 6.) Pt lives at home with spouse; plan dc to home Outcome: Improving Pt A&O x4, VSS except for Ace HR, CMS intact except for LUE and LLE tingling, baseline per patient. Neuros intact except for thick speech, improved, encouraged to slow down when speaking. Tele SBD w/ BBB. No seizure activity noted. Denies pain. Hep drip decreased 10.5 mL/hr. Hep 10A redraw scheduled 1530. INR 1.58. Voiding adequately. No BM. Reg diet. Discharge pending therapeutic INR. Nrsg will continue to monitor Goal: Plan of Care Review (Adult,OB,Behavioral) The patient and/or their sales representative electric service will communicate an understanding of their plan of care. Outcome: Improving Problem: Activity Intolerance (Adult, Obstetrics) Goal: Identify Signs and Symptoms and Related Risk Factors Signs and symptoms and related risk factors are identified upon initiation of Human Response Clinical Practice Guideline (CPG) Outcome: Improving Goal: Activity Intolerance Activity Tolerance Patient will demonstrate the desired outcomes. Outcome: Improving Goal: Activity Intolerance: Effective Energy Conservation Techniques Patient will demonstrate the desired outcomes. Outcome: Improving Problem: Fall/Trauma/Injury Risk (Adult, Obstetrics) Goal: Identify Signs and Symptoms and Related Risk Factors Signs and symptoms and related risk factors are identified upon initiation of Human Response Clinical Practice Guideline (CPG) Outcome: Improving Goal: Fall/Trauma/Injury Risk: Absence of Trauma/Injury/Falls Patient will demonstrate the desired outcomes. Outcome: Improving Problem: Stroke (Ischemic)/Transient Ischemic Attack (TIA) (Adult, Obstetrics) Goal: Prevent/Manage Potential Problems Outcome: No Change Plan of Care - Brianne Wheeler, SOCIAL INSURANCE ANALYST - 04/13/2014 9:34 AM CDT Problem: General Rehab Plan of Care Goal: Speech Language Pathology Goals The patient and/or their sales representative electric service will achieve their patient-specific goals related to the plan of care. The patient-specific goals include: Pt to be seen daily, for 1-2 meal follow up sessions, to achievethe following goals: 1. Pt will safely tolerate regular diet and thin liquids, using safe swallow strategies including decrease rate, small sips/bites, upright for meals, no straws with no s/s of aspiration. 2. Pt and family will verbalize understanding of all safe swallow strategies. Outcome: Improving SOCIAL INSURANCE ANALYST: Pt seen sitting upright in chair following breakfast. Pt reported no difficulty with breakfast and refused further trials as he was full. Throat clears noted following his meal, Pt reported the eggs were dry. Pt was able to report use of slow intake and liquid wash to clear oral and pharyngeal cavity. Education re: small bites and sips, alternating liquids and solids and no straws. Royal of thinliquids from a bottle resulted in no signs or symptoms of aspiration and good vocal quality. Pt reported concern with mild persisting dysarthria and was given recommendations for speech exercise and follow-up with SOCIAL INSURANCE ANALYST as OP if it persists. Recommend: Continue diet of Regular with thin liquids using small bites and sips, alternating liquids and solids and NO STRAWS. Follow up with meal prior to discharge as Pt had complete his meal prior to ST arrival. D/C home with OP for dysarthria if it persists. Plan of Care - Shawn Pham OT - 04/13/2014 8:48 AM CDT Problem: General Rehab Plan of Care Goal: Occupational Therapy Goals The patient and/or their sales representative electric service will achieve their patient-specific goals related to the plan of care. The patient-specific goals include: OT goals: to be met 04/12/2014 1. Pt will transfer to toilet, completing dressing and hygiene cares with SBA using appropriate DME. 2. Pt will transfer to walk-in shower or tub/shower combination with SBA using appropriate DMD. 3. Pt will complete dressing, including gathering clothing, with SBA using appropriate DME. 4. Pt will stand at sink for at least 5 minutes of typical ADL routine with SBA. Frequency: Daily Outcome: Completed Date Met: 04/13/14 OT: Pt seen for evaluation in room. States he is feeling better, needs his morning coffee to wake up. Pt admitted for an episode of dysarthria and weakness, rule out TIA vs stroke. Pt admitted with similar episode about 3 weeks ago. Speaking clearly now with no apparent cognitive issues. Independent in bed mobility, bathroom transfers, and dressing tasks. 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 No further OT needed at this time. Anticipate pt will return home and to usual routine when medically stable. Occupational Therapy Discharge Summary Reason for therapy discharge: All goals and outcomes met, no futher needs identified. Progress towards therapy goal(s): Goals met Therapy recommendation(s): No further therapy is recommended. Plan of Care - Gabriel Ruiz RN - 04/12/2014 10:57 PM CDT Problem: IP GENERAL POC-ADULT,OB,BEHAVIORAL FVCPM Goal: Individualization/Patient-Specific Goal (Adult,OB,Behavioral The patient and/or their sales representative electric service will achieve their patient-specific goals related to the plan of care. The patient-specific goals include: 1.) pt admitted for asphasia, weakness on 04/11/14 2.) pt (code status TBD), NKDA, fall risk 3.) pain goal: less than 5 4.) Past Medical History: Neuropathy HTN TIA 5.) Past Surgical History: GI surgery Resection abdominal perineal Colonoscopy 6.) Pt lives at home with spouse; plan dc to home Outcome: Improving Pt alert and oriented x4. Reports feeling tired all day. VSS. Tele SBD with a BBB. Neuros intact. CMS with baseline n/t in left foot and hand. Strength 5/5 bilateral upper and lower extremities. No seizure activity observed. Pt c/o of discomfort and restless R leg, relieved with prn tylenol and scheduled Requip. Pt ambulating with SBA. IVF and heparin infusing. Hep 10a re-check tomorrow morning. Goal: Discharge Planning (Adult, OB, Behavioral, Peds) Outcome: Improving Goal: Plan of Care Review (Adult,OB,Behavioral) The patient and/or their sales representative electric service will communicate an understanding of their plan of care. Outcome: Improving Problem: Stroke (Ischemic)/Transient Ischemic Attack (TIA) (Adult, Obstetrics) Goal: Prevent/Manage Potential Problems Outcome: Improving Plan of Care - Lizy Grullon, SOCIAL INSURANCE ANALYST - 04/12/2014 3:46 PM CDT Problem: General Rehab Plan of Care Goal: Speech Language Pathology Goals The patient and/or their sales representative electric service will achieve their patient-specific goals related to the plan of care. The patient-specific goals include: Pt to be seen daily, for 1-2 meal follow up sessions, to achievethe following goals: 1. Pt will safely tolerate regular diet and thin liquids, using safe swallow strategies including decrease rate, small sips/bites, upright for meals, no straws with no s/s of aspiration. 2. Pt and family will verbalize understanding of all safe swallow strategies. SOCIAL INSURANCE ANALYST: Pt seen for bedside swallow evaluation. Patient presents with mild oral pharyngeal dysphagia. Family present. Pt presents with mild to moderate dysarthria. Pt states he has noticed he's been more uncoordinated lately with fine and gross motor tasks. ST educated pt and family on the swallow mechanism and the signs and symptoms of swallow incoordination. Pt coughed x1 with 1/2 tsp of water, stating I inhaled the water from the spoon and it went down the wrong pipe. Pt tolerated further trials of thin with a cup- ST instructed small sips and double swallows. No further s/s of aspiration noted with thin liquid. Pt safely tolerated nectar, pudding, semi solids and regular solids- no s/s of aspiration noted. ST instructed pt and family to follow safe swallow strategies including: decreasing rate, small bites/sips, alternate liquids and solids, double swallows, and upright for meals. Recommend: Cont regular diet with thin liquids, follow safe swallow strategies and be alerted to any red flags (d iscussed during the evaluation)during mealtimes, ST return 04/13 for meal follow up. D/C home. Plan of Care - Damian Bernstein, RN - 04/12/2014 2:15 PM CDT Problem: IP GENERAL POC-ADULT,OB,BEHAVIORAL FVCPM Goal: Individualization/Patient-Specific Goal (Adult,OB,Behavioral The patient and/or their sales representative electric service will achieve their patient-specific goals related to the plan of care. The patient-specific goals include: 1.) pt admitted for asphasia, weakness on 04/11/14 2.) pt (code status TBD), NKDA, fall risk 3.) pain goal: less than 5 4.) Past Medical History: Neuropathy HTN TIA 5.) Past Surgical History: GI surgery Resection abdominal perineal Colonoscopy 6.) Pt lives at home with spouse; plan dc to home Outcome: Improving Pt A&O x4, VSS, CMS intact excpet for LUE and LLE tingling, baseline per patient. Neuros intact except for thick speech, stated not at baseline for patient but improved. Tele SBD w/ BBB. Denies pain. Hep drip maintained at 11mL/hr. Hep 10A draw tomorrow AM. Pharmacy dosing Coumadin for this evening. Family at bedside. Voiding adequately. No BM. Reg diet. Nrsg will continue to monitor. Goal: Plan of Care Review (Adult,OB,Behavioral) The patient and/or their sales representative electric service will communicate an understanding of their plan of care. Outcome: Improving Problem: Activity Intolerance (Adult, Obstetrics) Goal: Identify Signs and Symptoms and Related Risk Factors Signs and symptoms and related risk factors are identified upon initiation of Human Response Clinical Practice Guideline (CPG) Outcome: Improving Goal: Activity Intolerance Activity Tolerance Patient will demonstrate the desired outcomes. Outcome: Improving Goal: Activity Intolerance: Effective Energy Conservation Techniques Patient will demonstrate the desired outcomes. Outcome: Improving Problem: Fall/Trauma/Injury Risk (Adult, Obstetrics) Goal: Identify Signs and Symptoms and Related Risk Factors Signs and symptoms and related risk factors are identified upon initiation of Human Response Clinical Practice Guideline (CPG) Outcome: Improving Goal: Fall/Trauma/Injury Risk: Absence of Trauma/Injury/Falls Patient will demonstrate the desired outcomes. Outcome: Improving Problem: Stroke (Ischemic)/Transient Ischemic Attack (TIA) (Adult, Obstetrics) Goal: Prevent/Manage Potential Problems Outcome: No Change Plan of Care - Vannessa Robles, PT - 04/12/2014 2:03 PM CDT Problem: General Rehab Plan of Care Goal: Physical Therapy Goals The patient and/or their sales representative electric service will achieve their patient-specific goals related to the plan of care. The patient-specific goals include: PT: Initial PT assessment completed. Pt. Admitted with increased dysarthria. Medical team working upseizure vs. TIA. Pt. With history of CVA 10 yrs ago with mild higher level balance deficits. Pt. Previously I with all ADLS and IADLS, working, driving. Currently, Pt. Is I with all functional mobility. Scored 27/30 on Functional Gait Assessment which is in the 'normal' category for fall risk. Pt. With mild challenges in balance with head tilts and narrowed base of support, but per pt. Report, deficits are not new or increased. Offered PT services to address balance but pt. Politely declining. PT recommending discharge to home with no further PT services. Pharmacy-Anticoagulation Service - Bonnie Chandler RPH - 04/12/2014 1:54 PM CDT Clinical Pharmacy- Warfarin Dosing Consult Pharmacy has been consulted to manage this patient???s warfarin therapy. Marlene Mccall has been receiving warfarin as an outpatient on the following regimen: 5mg alt w/ 7.5mg The warfarin is indicated for stroke. Patient???s goal INR is: 2-3. Current medications that may interact with warfarin and/or INR: Heparin. Recommend warfarin 10 mg today. Pharmacy will monitor Marlene Mccall daily and order warfarin doses toachieve specified INR goal. Please contact pharmacy as soon as possible if the warfarin needs to be held for a procedure or if the INR goals change. Utilization Review - Ida Murray MD - 04/12/2014 12:49 PM CDT [facility] Utilization Review Admission Status; Secondary Review Determination Admission Date: 04/11/2014 1:49 PM Under the authority of the Utilization Management Committee, the utilization review process indicated a secondary review on the above patient. The review outcome is based on review of the medical records, discussions with staff, and applying clinical experience noted on the date of the review. (X) Inpatient Status Appropriate - This patient's medical care is consistent with medical managementfor inpatient care and reasonable inpatient medical practice. RATIONALE FOR DETERMINATION Mr mccall is a 64 year old male with complex past medical and neurological history, who presented to the ER with dysarthria.He was admitted for possible acute TIA vs CVA. Neurology is consulted and he underwent extensive workup including CT/CTA, MRI of head and echocardiogram. Initial suspicion was for p ossible CVA vs seizure vs migraine. EEG is pending. INR is sub therapeutic, and in light of neurological symptoms, neurology recommends IV heparin drip until INR is therapeutic on coumadin to minimize neuro symptoms. In addition, seizure medications are being modified. Given new onset symptoms with possibility of seizure disorder vs CVA, complex past neurological history, he remains high risk for adverse outcome. Anticipated length of stay is anticipated to exceed > 2 nights, therefore inpatient status is appropriate at this time. The severity of illness, intensity of service provided, expected LOS and risk for adverse outcome make the care complex, high risk and appropriate for hospital admission.The patient requires hospital based medical care which is anticipated to require a stay of 2 or more midnights; according to CMS guid elines the patient should be admitted as inpatient The information on this document is developed by the utilization review team in order for the business office to ensure compliance. This only denotes the appropriateness of proper admission status and does not reflect the quality of care rendered. The definitions of Inpatient Status and Observation Status used in making the determination above are those provided in the CMS Coverage Manual, Chapter 1 and Chapter 6, section 70.4. Sincerely, Ida Murray MD, MS Physician Advisor Utilization Review-[place] Provider Notification - Damian Bernstein RN - 04/12/2014 12:[address] Melgoza to review Neurology note. Inquired about coumadin orders and INR orders. Plan of Care - Raymon Baptiste, PT - 04/12/2014 10:23 AM CDT Problem: General Rehab Plan of Care Goal: Physical Therapy Goals The patient and/or their sales representative electric service will achieve their patient-specific goals related to the plan of care. The patient-specific goals include: PT: Patient having bedside procedure performed. Will reattempt later in pm. Plan of Care - Shawn Pham OT - 04/12/2014 9:27 AM CDT Problem: General Rehab Plan of Care Goal: Occupational Therapy Goals The patient and/or their sales representative electric service will achieve their patient-specific goals related to the plan of care. The patient-specific goals include: OT: Attempted to see for OT ifeoma grace in procedure and not available. Will cancel and try back 04/13/14 Plan of Care - Fariba Mott RN - 04/12/2014 5:31 AM CDT Problem: IP GENERAL POC-ADULT,OB,BEHAVIORAL FVCPM Goal: Plan of Care Review (Adult,OB,Behavioral) The patient and/or their sales representative electric service will communicate an understanding of their plan of care. Outcome: Improving Plan of Care - Fariba Mott RN - 04/12/2014 5:31 AM CDT Problem: IP GENERAL POC-ADULT,OB,BEHAVIORAL FVCPM Goal: Individualization/Patient-Specific Goal (Adult,OB,Behavioral The patient and/or their sales representative electric service will achieve their patient-specific goals related to the plan of care. The patient-specific goals include: 1.) pt admitted for asphasia, weakness on 04/11/14 2.) pt (code status TBD), NKDA, fall risk 3.) pain goal: less than 5 4.) Past Medical History: Neuropathy HTN TIA 5.) Past Surgical History: GI surgery Resection abdominal perineal Colonoscopy 6.) Pt lives at home with spouse; plan dc to home Outcome: Improving A&oX4.VSS.Denied pain.mild slurred speech.on heparin infusion 11 ml/hr hep 10 a recheck in 0800 am.up with one.voided adequately.on regular diet.plan to have EEG this morning. Plan of Care - Raegan Moran RN - 04/11/2014 10:47 PM CDT Problem: IP GENERAL POC-ADULT,OB,BEHAVIORAL FVCPM Goal: Individualization/Patient-Specific Goal (Adult,OB,Behavioral The patient and/or their sales representative electric service will achieve their patient-specific goals related to the plan of care. 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 up with SBA to bathroom, voiding appropriately, BM this shift, tolerating diet well. Will have EEG in am, plan of care still to be determined. Problem: Activity Intolerance (Adult, Obstetrics) Goal: Identify Signs and Symptoms and Related Risk Factors Signs and symptoms and related risk factors are identified upon initiation of Human Response Clinical Practice Guideline (CPG) Outcome: Improving Problem: Fall/Trauma/Injury Risk (Adult, Obstetrics) Goal: Identify Signs and Symptoms and Related Risk Factors Signs and symptoms and related risk factors are identified upon initiation of Human Response Clinical Practice Guideline (CPG) Outcome: Improving Problem: Stroke (Ischemic)/Transient Ischemic Attack (TIA) (Adult, Obstetrics) Goal: Prevent/Manage Potential Problems Outcome: Improving Pharmacy-Admission Medication History - Angel Quintero, [facility] - 04/11/2014 3:43 PM CDT Admission medication history interview status for the 04/11/2014 admission is complete. See [facility] admission navigator for prior to admission medications Medication history source reliability:Good Actions taken by pharmacist (provider contacted, etc):Add new meds Additional medication history information not noted on [facility] med list :Added Keppra 500 & /Warfarin different dose Medication reconciliation/reorder completed by provider prior to medication history? No Time spent in this activity: 15 minutes Prior to Admission medications Medication Sig Last Dose Taking? Auth Provider WARFARIN SODIUM PO Take 5 mg by mouth every other day 04/10/2014 at Unknown time Yes Dummy, Bfp User WARFARIN SODIUM PO Take 7.5 mg by mouth every other day Due Today Yes Dummy, Bfp User LevETIRAcetam (KEPPRA PO) Take 500 mg by mouth 2 times daily 04/11/2014 at Unknown time Yes Dummy, Bfp User INDOMETHACIN PO Take 25 mg by mouth 3 times daily (with meals) 04/11/2014 at Unknown time Yes Reported, Patient aspirin 81 MG tablet Take 1 tablet (81 mg) by mouth daily 04/10/2014 at Unknown time Yes Jose Coon MD amLODIPine (NORVASC) 5 MG tablet Take 1 tablet (5 mg) by mouth daily 04/10/2014 at Unknown time Yes Brandon Alonzo MD cyanocobalamin [address] 2 tablets (1,000 mcg) under the tongue daily 04/11/2014 at Unknown time Yes Brandon Alonzo MD ATENOLOL PO Take 100 mg by mouth every morning 04/11/2014 at Unknown time Yes Dummy, Bfp User GABAPENTIN PO Take 600 mg by mouth At Bedtime 04/10/2014 at Unknown time Yes Dummy, Bfp User MAGNESIUM OXIDE PO Take 500 mg by mouth every morning 04/11/2014 at Unknown time Yes Dummy, Bfp User Pregabalin (LYRICA PO) Take 75 mg by mouth At Bedtime 04/10/2014 at Unknown time Yes Dummy, Bfp User ROPINIROLE HCL PO Take 1 mg by mouth At Bedtime (Takes 2 x 0.5mg tabs for a total of 1mg at bedtime)04/10/2014 at Unknown time Yes Dummy, Bfp User Riboflavin (VITAMIN B-2 PO) Take 200 mg by mouth 2 times daily 04/11/2014 at Unknown time Yes Dummy, Bfp User GABAPENTIN PO Take 300 mg by mouth every morning 04/11/2014 at Unknown time Yes Reported, Patient lisinopril (PRINIVIL,ZESTRIL) 30 MG tablet Take 30 mg by mouth 2 times daily 04/11/2014 at Unknown time Yes Reported, Patient simvastatin (ZOCOR) 20 MG tablet Take 20 mg by mouth At Bedtime. 04/10/2014 at Unknown time Yes Reported, Patient folic acid-vit B6-vit B12 (FOLGARD) 0.8-10-0.115 MG TABS Take 1 tablet by mouth daily 04/11/2014 at Unknown time Yes Reported, Patient Multiple Vitamin (MULTI-VITAMIN) per tablet Take 1 tablet by mouth daily. 04/11/2014 at Unknown time Yes Reported, Patient April 11, 2014 Angel Quintero [facility]. documented in this encounter Plan of Treatment Scheduled Orders Name Type Priority Associated Diagnoses Order S chedule EEG (Seizure) Neurology STAT One Time for 1 Occurrences starting 2013 until 04/11/2014 documented as of this encounter Procedures Procedure Name Priority Date/Time Associated Comments Diagnosis EEG ROUTINE 04/28/2014 3:07 PM Results f or this CDT procedure are i n the results section. HEPARIN 10A LEVEL Timed 04/13/2014 3:03 PM Aphasia Resu lts for this CDT procedure are i n the results section. INR Routine 04/13/2014 8:07 AM Aphasia Results f or this CDT procedure are i n the results section. HEPARIN 10A LEVEL Routine 04/13/2014 8:07 AM Aphasia Resu lts for this CDT procedure are i n the results section. HEPARIN 10A LEVEL Routine 04/12/2014 8:08 AM Aphasia Resu lts for this CDT procedure are i n the results section. BASIC METABOLIC PANEL Routine 04/12/2014 8:08 AM Aphasia Results for this CDT procedure are i n the results section. EEG ROUTINE Routine 04/12/2014 12:06 AM CDT HEPARIN 10A LEVEL Timed 04/12/2014 12:05 Aphasia Result s for this AM CDT procedure are i n the results section. CT HEAD W CONTRAST STAT 04/11/2014 2:56 PM Res ults for this CDT procedure are i n the results section. CTA HEAD NECK W STAT 04/11/2014 2:40 PM Result s for this CONTRAST CDT procedure are i n the results section. CT HEAD W/O CONTRAST STAT 04/11/2014 2:39 PM R esults for this CDT procedure are i n the results section. CBC WITH PLATELETS & STAT 04/11/2014 2:00 PM R esults for this DIFFERENTIAL CDT procedure are i n the results section. TROPONIN I STAT 04/11/2014 2:00 PM Aphasia Results f or this CDT procedure are i n the results section. INR STAT 04/11/2014 2:00 PM Results f or this CDT procedure are i n the results section. PARTIAL THROMBOPLASTIN STAT 04/11/2014 2:00 PM Results for this TIME CDT procedure are i n the results section. BASIC METABOLIC PANEL STAT 04/11/2014 2:00 PM Results for this CDT procedure are i n the results section. EKG 12-LEAD, TRACING STAT 04/11/2014 1:47 PM R esults for this ONLY CDT procedure are i n the results section. documented in this encounter Results EEG (04/28/2014 3:07 PM CDT) Transcriptions Demetrius Ramirez MD - 04/12/2014 12: 24 PM CDT ELECTROENCEPHALOGRAM ORDERING PHYSICIAN: Demetrius Ramirez MD EEG #[id number] This is a spontaneous waking and drowsy record on Marlene Mccall, a 64-year-old gentleman referred for evaluation of paroxysmal episodes of language difficulties and confusion. MEDICATIONS at the time of the record in clude Norvasc, Tenormin, Keppra, aspirin, heparin, Zestril, and Requip The study reveals a fairly well-develope d dominant rhythm of 11 Hz alpha activity seen symmetrically in the posterior regions attenuating with eye opening. Beta activity is seen symmetrically in the frontal region bilaterally. Throughout the entire recor ding, there is the appearance of excessive bihemispheric and bitemporal theta slowing of low to moderate voltage. This appears to be perhaps slightly more prominent on the left than the right, but really there is no c lear lateralization or localization. EKG monitoring done throughout the course of the record reflects a regular rhythm. There are occasional premature contractions noted. Photic stimulation is performed and prod uces some symmetrical driving responses at the upper flash frequencies. No other abnormalities are identified. IMPRESSION: Minimally abnormal waking re cord because of the appearance of excessive bihemispheric slowing, possibly consistent with drowsiness. No focal or epileptiform activity is noted. DEMETRIUS RAMIREZ MD MT: nicole Name: MARLENE MCCALL Account: [id number] : 1950 Procedure Date: 04/12/20 Document: [id number] IMG EEG ORDERABLES Heparin 10a Level (04/13/2014 3:03 PM CDT) athologist Signature Heparin 10A 0.38 IU/mL [facility] LAB Comment: Therapeutic Range: ?? UFH: ?? 0.15-0.35 IU/mL for low ?intensity dosing ?0.30-0.70 IU/mL for high ?intensity dosing ?? LMWH: ??1.00-2.00 IU/mL if 4-6 h ?post daily dosing ?0.60-1.00 IU/mL if 4-6 h ?post twice a day dosin g Specimen Anatomical Collection Method Collection Time Receive d Time (Source) Location / / Volume Laterality Blood specimen 04/13/2014 3:03 PM 014 3:07 (specimen) CDT PM CDT Meg Melgoza MD LAB - BLOOD ORDERABLES Performing Organization Address City/[facility]/ZIP Code Phon e Number M [facility] [address] [place], [place] [address] [place] [address] LAB (ABNORMAL) INR (04/13/2014 8:07 AM CDT) P athologist Signature INR 1.58 (H) 0.86 - 1.14 [facility] LAB Specimen Anatomical Collection Method Collection Time Receive d Time (Source) Location / / Volume Laterality Blood specimen 04/13/2014 8:07 AM 014 8:17 (specimen) CDT AM CDT Meg Melgoza MD LAB - BLOOD ORDERABLES Performing Organization Address [facility] Phon e Number M [facility] [address] [place] [phone] [address] [facility] LAB Heparin 10a Level (04/13/2014 8:07 AM CDT) P athologist Signature Heparin 10A 0.36 IU/mL [facility] LAB Comment: Therapeutic Range: ?? UFH: ?? 0.15-0.35 IU/mL for low ?intensity dosing ?0.30-0.70 IU/mL for high ?intensity dosing ?? LMWH: ??1.00-2.00 IU/mL if 4-6 h ?post daily dosing ?0.60-1.00 IU/mL if 4-6 h ?post twice a day dosin g Specimen Anatomical Collection Method Collection Time Receive d Time (Source) Location / / Volume Laterality Blood specimen 04/13/2014 8:07 AM 014 8:17 (specimen) CDT AM CDT Ricardo Ramos MD LAB - BLOOD ORDERABLES Performing Organization Address City/[facility]/ZIP Code Phon e Number M [facility] [address] [place] [address] [facility] LAB Heparin 10a Level (04/12/2014 8:08 AM CDT) athologist Signature Heparin 10A 0.34 IU/mL [facility] LAB Comment: Therapeutic Range: ?? UFH: ?? 0.15-0.35 IU/mL for low ?intensity dosing ?0.30-0.70 IU/mL for high ?intensity dosing ?? LMWH: ??1.00-2.00 IU/mL if 4-6 h ?post daily dosing ?0.60-1.00 IU/mL if 4-6 h ?post twice a day dosin g Specimen Anatomical Collection Method Collection Time Receive d Time (Source) Location / / Volume Laterality Blood specimen 04/12/2014 8:08 AM 014 8:16 (specimen) CDT AM CDT Ricardo Ramos MD LAB - BLOOD ORDERABLES Performing Organization Address City/State/ZIP Code Phon e Number M [facility] [address] [place] [address] [facility] LAB Basic metabolic panel (04/12/2014 8:08 AM CDT) athologist Signature Sodium 138 133 - 144 [place] mmol/L [facility] LAB Potassium 4.7 3.4 - 5.3 [place] mmol/L [facility] LAB Chloride 109 94 - 109 [place] mmol/L [facility] LAB Carbon Dioxide 23 20 - 32 [place] mmol/L [facility] LAB Anion Gap 6 6 - 17 [place] mmol/L [facility] LAB Glucose 86 60 - 99 [place] mg/dL [facility] LAB Urea Nitrogen 23 7 - 30 [place] mg/dL [facility] LAB Creatinine 1.17 0.66 - [place] 1.25 mg/dL [facility] LAB GFR Estimate 62 >60 [place] mL/min/1.[address] LAB GFR Estimate If 75 >60 [place] Black mL/min/1.[address] LAB Calcium 8.8 8.5 - 10.4 [place] mg/dL [facility] LAB Specimen Anatomical Collection Method Collection Time Receive d Time (Source) Location / / Volume Laterality Blood specimen 04/12/2014 8:08 AM 014 8:18 (specimen) CDT AM CDT Justice SHEL[place] LAB - BLOOD ORDERABLES Performing Organization Address City/State/ZIP Code Phon e Number M [facility] [address] [place] [address] [facility] LAB Heparin 10a Level (04/12/2014 12:05 AM CDT) P athologist Signature Heparin 10A 0.23 IU/mL [facility] LAB Comment: Therapeutic Range: ?? UFH: ?? 0.15-0.35 IU/mL for low ?intensity dosing ?0.30-0.70 IU/mL for high ?intensity dosing ?? LMWH: ??1.00-2.00 IU/mL if 4-6 h ?post daily dosing ?0.60-1.00 IU/mL if 4-6 h ?post twice a day dosin g Specimen Anatomical Collection Method Collection Time Receive d Time (Source) Location / / Volume Laterality Blood specimen 04/12/2014 12:05 4 (specimen) AM CDT 12:11 AM CDT Greg Hurst [facility] LAB - BLOOD ORDERABLES Performing Organization Address City/State/ZIP Code Phon e Number M [facility] [address] [place] [address] [facility] LAB CT Head w Contrast (04/11/2014 2:56 PM CDT) Anatomical Region Laterality Modality Head, NEURO, SUBRAD CT NEURO, SUBRAD CT NEURO, UMP CT Computed Tomography NEURO Specimen (Source) Anatomical Location Collection Method / Collectio n Time Received Time / Laterality Volume Impressions 04/11/2014 3:29 PM CDT IMPRESSION: Atherosclerotic changes in the carotid bifurcations, carotid siphons and proximal and distal left vertebral artery. Moderate stenosis proximal and distal le ft vertebral artery. No vascular occlusion or thrombus. I discussed the findings with Dr. Justice Schaeffer at 2:55 p.m. on 04/11/2014. ?? HALEIGH ARNOLD MD Narrative 04/11/2014 3:[address] ANGIOGRAM OF THE HEAD AND NECK WITHOUT AND WITH CONTRAST 04/11/2014, 2:40 PM HISTORY: Previous transient ischemic att acks. Stroke symptoms with slurred speech today. TECHNIQUE: ??Precontrast localizing scan s were followed by CT angiography with an injection of 70 mL I sovue-370 (accession [id number]), 50 mL Isovue-370 (accession S [id number]) IV with scans through the head and neck. ??Images were transfe rred to a separate 3-D workstation where multiplanar reformatio ns and 3-D images were created. ??Estimates of carotid stenoses are made relative to the distal internal carotid artery diameters except as noted. ??Perfusion scans were performed at three levels wit h injection of an additional 40 mL IV nonionic contrast and 20 mL martina ine flush. ??These images were processed on a separate 3-D workstation. COMPARISON: 03/21/2014. CT HEAD FINDINGS: ??No contrast enhancin g lesions. 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 Per fusion scan appears normal except in the old left cerebellar infarc t. CT ANGIOGRAM HEAD FINDINGS: ??Calcified atherosclerotic plaque in the carotid siphons causing at most mild mac nosis. No arterial occlusion or intra-arterial thrombus. No aneurysm. No change. Venous circulation is unremarkable. CT ANGIOGRAM NECK FINDINGS: Right carotid artery: Calcified plaque d istal common carotid and proximal internal carotid artery. ??No s ignificant stenosis. ?? Left carotid artery: Calcified plaque di stal common carotid and proximal internal carotid artery. ??No s ignificant stenosis. ?? Vertebral arteries: ??Calcified atherosc lerotic plaque distal left vertebral artery causing moderate stenos is. ??Moderate stenosis origin of the left vertebral artery caused by c alcified atherosclerotic plaque. ?? Other findings: Cervical degenerative ch anges. Spinal stenosis. Thyromegaly with no focal nodule. Procedure Note Haleigh Arnold MD - 04/11/2014Formatt ing of this note might be different from the original. CT ANGIOGRAM OF THE HEAD AND NECK WITHOU T AND WITH CONTRAST 04/11/2014, 2:40 PM HISTORY: Previous transient ischemic att acks. Stroke symptoms with slurred speech today. TECHNIQUE: Precontrast localizing scans were followed by CT angiography with an injection of 70 mL I sovue-370 (accession [id number]), 50 mL Isovue-370 (accession S [id number]) IV with scans through the head and neck. Images were transferr ed to a separate 3-D workstation where multiplanar reformatio ns and 3-D images were created. Estimates of carotid stenoses a re made relative to the distal internal carotid artery diameters except as noted. Perfusion scans were performed at three levels wit h injection of an additional 40 mL IV nonionic contrast and 20 mL martina ine flush. These images were processed on a separate 3-D workstation. COMPARISON: 03/21/2014. CT HEAD FINDINGS: No contrast enhancing lesions. 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 Per fusion scan appears normal except in the old left cerebellar infarc t. CT ANGIOGRAM HEAD FINDINGS: Calcified at herosclerotic plaque in the carotid siphons causing at most mild mac nosis. No arterial occlusion or intra-arterial thrombus. No aneurysm. No change. Venous circulation is unremarkable. CT ANGIOGRAM NECK FINDINGS: Right carotid artery: Calcified plaque d istal common carotid and proximal internal carotid artery. No sig nificant stenosis. Left carotid artery: Calcified plaque di stal common carotid and proximal internal carotid artery. No sig nificant stenosis. Vertebral arteries: Calcified atheroscle rotic plaque distal left vertebral artery causing moderate stenos is. Moderate stenosis origin of the left vertebral artery caused by c alcified atherosclerotic plaque. Other findings: Cervical degenerative ch anges. Spinal stenosis. Thyromegaly with no focal nodule. IMPRESSION IMPRESSION: Atherosclerotic changes in t he carotid bifurcations, carotid siphons and proximal and distal left vertebral artery. Moderate stenosis proximal and distal le ft vertebral artery. No vascular occlusion or thrombus. I discussed the findings with Dr. Jsutice Schaeffer at 2:55 p.m. on 04/11/2014. HALEIGH ARNOLD MD Jose Patel MD IMG CT ORDERABLES CT Head Neck Angio w/o & w Contrast (04/11/2014 2:40 PM CDT) Anatomical Region Laterality Modality Head, SUBRAD CT NEURO, SUBRAD CT NEURO, UMP CT NEURO Computed Tomography Specimen (Source) Anatomical Location Collection Method / Collectio n Time Received Time / Laterality Volume Impressions 04/11/2014 3:29 PM CDT IMPRESSION: Atherosclerotic changes in the carotid bifurcations, carotid siphons and proximal and distal left vertebral artery. Moderate stenosis proximal and distal le ft vertebral artery. No vascular occlusion or thrombus. I discussed the findings with Dr. Justice Schaeffer at 2:55 p.m. on 04/11/2014. ?? HALEIGH ARNOLD MD Narrative 04/11/2014 3:[address] ANGIOGRAM OF THE HEAD AND NECK WITHOUT AND WITH CONTRAST 04/11/2014, 2:40 PM HISTORY: Previous transient ischemic att acks. Stroke symptoms with slurred speech today. TECHNIQUE: ??Precontrast localizing scan s were followed by CT angiography with an injection of 70 mL I sovue-370 (accession [id number]), 50 mL Isovue-370 (accession S [id number]) IV with scans through the head and neck. ??Images were transfe rred to a separate 3-D workstation where multiplanar reformatio ns and 3-D images were created. ??Estimates of carotid stenoses are made relative to the distal internal carotid artery diameters except as noted. ??Perfusion scans were performed at three levels wit h injection of an additional 40 mL IV nonionic contrast and 20 mL martina ine flush. ??These images were processed on a separate 3-D workstation. COMPARISON: 03/21/2014. CT HEAD FINDINGS: ??No contrast enhancin g lesions. 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 Per fusion scan appears normal except in the old left cerebellar infarc t. CT ANGIOGRAM HEAD FINDINGS: ??Calcified atherosclerotic plaque in the carotid siphons causing at most mild mac nosis. No arterial occlusion or intra-arterial thrombus. No aneurysm. No change. Venous circulation is unremarkable. CT ANGIOGRAM NECK FINDINGS: Right carotid artery: Calcified plaque d istal common carotid and proximal internal carotid artery. ??No s ignificant stenosis. ?? Left carotid artery: Calcified plaque di stal common carotid and proximal internal carotid artery. ??No s ignificant stenosis. ?? Vertebral arteries: ??Calcified atherosc lerotic plaque distal left vertebral artery causing moderate stenos is. ??Moderate stenosis origin of the left vertebral artery caused by c alcified atherosclerotic plaque. ?? Other findings: Cervical degenerative ch anges. Spinal stenosis. Thyromegaly with no focal nodule. Procedure Note Haleigh Arnold MD - 04/11/2014Formatt ing of this note might be different from the original. CT ANGIOGRAM OF THE HEAD AND NECK WITHOU T AND WITH CONTRAST 04/11/2014, 2:40 PM HISTORY: Previous transient ischemic att acks. Stroke symptoms with slurred speech today. TECHNIQUE: Precontrast localizing scans were followed by CT angiography with an injection of 70 mL I sovue-370 (accession [id number]), 50 mL Isovue-370 (accession S [id number]) IV with scans through the head and neck. Images were transferr ed to a separate 3-D workstation where multiplanar reformatio ns and 3-D images were created. Estimates of carotid stenoses a re made relative to the distal internal carotid artery diameters except as noted. Perfusion scans were performed at three levels wit h injection of an additional 40 mL IV nonionic contrast and 20 mL martina ine flush. These images were processed on a separate 3-D workstation. COMPARISON: 03/21/2014. CT HEAD FINDINGS: No contrast enhancing lesions. 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 Per fusion scan appears normal except in the old left cerebellar infarc t. CT ANGIOGRAM HEAD FINDINGS: Calcified at herosclerotic plaque in the carotid siphons causing at most mild mac nosis. No arterial occlusion or intra-arterial thrombus. No aneurysm. No change. Venous circulation is unremarkable. CT ANGIOGRAM NECK FINDINGS: Right carotid artery: Calcified plaque d istal common carotid and proximal internal carotid artery. No sig nificant stenosis. Left carotid artery: Calcified plaque di stal common carotid and proximal internal carotid artery. No sig nificant stenosis. Vertebral arteries: Calcified atheroscle rotic plaque distal left vertebral artery causing moderate stenos is. Moderate stenosis origin of the left vertebral artery caused by c alcified atherosclerotic plaque. Other findings: Cervical degenerative ch anges. Spinal stenosis. Thyromegaly with no focal nodule. IMPRESSION IMPRESSION: Atherosclerotic changes in t he carotid bifurcations, carotid siphons and proximal and distal left vertebral artery. Moderate stenosis proximal and distal le ft vertebral artery. No vascular occlusion or thrombus. I discussed the findings with Dr. Justice Schaeffer at 2:55 p.m. on 04/11/2014. HALEIGH ARNOLD MD Jose Patel MD IMG CT ORDERABLES CT Head w/o Contrast (04/11/2014 2:39 PM CDT) Anatomical Region Laterality Modality Head, SUBRAD CT NEURO, SUBRAD CT NEURO, P CT NEURO Computed Tomography Specimen (Source) Anatomical Location Collection Method / Collectio n Time Received Time / Laterality Volume Impressions 04/11/2014 3:00 PM CDT IMPRESSION: 1. No acute abnormality. 2. 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 3. ??Atrophy of the brain. ??White matte r changes consistent with sequelae of small vessel ischemic diseas e. HALEIGH ARNOLD MD Narrative 04/11/2014 3:[address] SCAN OF THE HEAD WITHOUT CONTRAST 04/11/2014, 2:39 PM HISTORY: Stroke. Slurred speech. Hyperte nsion and transient ischemic attacks. Recently admitted on 03/21/2014 for acute right-sided weakness, aphasia and transient right ey e vision loss. TECHNIQUE: ??Axial images of the head wi thout IV contrast material. COMPARISON: 04/02/2014. FINDINGS: ??There is generalized atrophy of the brain. ??There is low attenuation in the white matter of the c erebral hemispheres consistent with sequelae of small vessel ischemic d isease. Old infarct is seen in the left cerebellar hemisphere posterior ly and inferiorly. There is no evidence of intracranial hemorrhage, mas s, acute infarct or anomaly. The visualized portions of the sinuses a nd mastoids appear normal. There is no evidence of trauma. Procedure Note Haleigh Arnold MD - 04/11/2014Formatt ing of this note might be different from the original. CT SCAN OF THE HEAD WITHOUT CONTRAST 03/24, 2:39 PM HISTORY: Stroke. Slurred speech. Hyperte nsion and transient ischemic attacks. Recently admitted on 03/21/2014 for acute right-sided weakness, aphasia and transient right ey e vision loss. TECHNIQUE: Axial images of the head with out IV contrast material. COMPARISON: 04/02/2014. FINDINGS: There is generalized atrophy o f the brain. There is low attenuation in the white matter of the c erebral hemispheres consistent with sequelae of small vessel ischemic d isease. Old infarct is seen in the left cerebellar hemisphere posterior ly and inferiorly. There is no evidence of intracranial hemorrhage, mas s, acute infarct or anomaly. The visualized portions of the sinuses a nd mastoids appear normal. There is no evidence of trauma. IMPRESSION IMPRESSION: 1. No acute abnormality. 2. 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 3. Atrophy of the brain. White matter ch anges consistent with sequelae of small vessel ischemic diseas eRegino ARNOLD MD Jose Patel MD IMG CT ORDERABLES Troponin I (04/11/2014 2:00 PM CDT) athologist Signature Troponin I ES <0.012 0.000 [facility] 0.034 ug/L [facility] Specimen Anatomical Collection Method Collection Time Receive d Time (Source) Location / / Volume Laterality 04/11/2014 2:00 PM 4 2:24 CDT PM CDT Jose Patel MD LAB - BLOOD ORDERABLES Performing Organization Address City/[facility]/ZIP Code Phon e Number M [facility] [address] [id number] [facility] Partial thromboplastin time (04/11/2014 2:00 PM CDT) athologist Signature PTT 34 22 - 37 sec [facility] Specimen Anatomical Collection Method Collection Time Receive d Time (Source) Location / / Volume Laterality 04/11/2014 2:00 PM 4 2:24 CDT PM CDT Jose Patel MD LAB - BLOOD ORDERABLES Performing Organization Address City/[facility]/ZIP Code Phon e Number M [facility] [address] [place] [address] [phone] [facility] (ABNORMAL) INR (04/11/2014 2:00 PM CDT) P athologist Signature INR 1.37 (H) 0.86 - 1.14 [facility] Specimen Anatomical Collection Method Collection Time Receive d Time (Source) Location / / Volume Laterality 04/11/2014 2:00 PM 4 2:24 CDT PM CDT Jose Patel MD LAB - BLOOD ORDERABLES Performing Organization Address City/State/ZIP Code Phon e Number M [facility] [address] [place] [address] [facility] CBC with platelets differential (04/11/2014 2:00 PM CDT) Patholo gist Method Time Signature WBC 5.6 4.0 - [place] 11.0 [facility] 10e9/L [facility] RBC Count 4.79 4.4 - 5.9 [place] 10e12/L [facility] Hemoglobin 14.6 13.3 - [place] 17.7 g/dL [facility] Hematocrit 42.3 40.0 - [place] 53.0 % [facility] MCV 88 78 - [address] [place] [address] [facility] MCH 30.5 26.5 - [place] 33.[address] [facility] MCHC 34.5 31.5 - [place] 36.5 g/dL [facility] RDW 12.0 10.0 - [place] 15.0 % [facility] Platelet Count 221 150 - 450 [place] 10e9/L [facility] Diff Method Automated [place] Method [facility] % Neutrophils 51.1 % [facility] % Lymphocytes 32.3 % [facility] % Monocytes 11.2 % [facility] % Eosinophils 3.5 % [facility] % Basophils 1.2 % [facility] % Immature 0.7 % [place] Granulocytes [facility] Absolute 2.9 1.6 - 8.3 [place] Neutrophil 10e9/L [facility] Absolute 1.8 0.8 - 5.3 [place] Lymphocytes 10e9/L [facility] Absolute 0.6 0.0 - 1.3 [place] Monocytes 10e9/L [facility] Absolute 0.2 0.0 - 0.7 [facility] Eosinophils 10e9/L [facility] Absolute 0.1 0.0 - 0.2 [place] Basophils 10e9/L [facility] Abs Immature 0.0 0 - 0.4 [place] Granulocytes 10e9/L [facility] Specimen Anatomical Collection Method Collection Time Receive d Time (Source) Location / / Volume Laterality 04/11/2014 2:00 PM 4 2:24 CDT PM CDT Jose Patel MD LAB - BLOOD ORDERABLES Performing Organization Address City/State/ZIP Code Phon e Number M [facility] [address] [place] [address] [facility] (ABNORMAL) Basic metabolic panel (04/11/2014 2:00 PM CDT) Analysis Performed At Patho logist Time Signature Sodium 137 133 - 144 [place] mmol/L [facility] Potassium 4.8 3.4 - 5.3 [place] mmol/L [facility] Chloride 103 94 - 109 [place] mmol/L [facility] Carbon Dioxide 26 20 - 32 [place] mmol/L [facility] Anion Gap 8 6 - 17 [place] mmol/L [facility] Glucose 86 60 - 99 [place] mg/dL [facility] Urea Nitrogen 34 (H) 7 - 30 [place] mg/dL [facility] Creatinine 1.33 (H) 0.66 - [facility] 1.25 mg/dL [facility] GFR Estimate 54 (L) >60 [place] mL/min/1.[address] LAB GFR Estimate If 65 >60 [place] Black mL/min/1.[address] [facility] Calcium 9.5 8.5 - 10.4 [place] mg/dL [facility] Specimen Anatomical Collection Method Collection Time Receive d Time (Source) Location / / Volume Laterality 04/11/2014 2:00 PM 4 2:24 CDT PM CDT Jose Patel MD LAB - BLOOD ORDERABLES Performing Organization Address City/State/ZIP Code Phon e Number M [facility] [address] [address] [facility] EKG 12 lead (04/11/2014 1:47 PM CDT) [facility] gist Method Time Signature Interpretation ECG Click View RADIOLOGY Image link RESULTS to view waveform and result Specimen (Source) Anatomical Collection Method Collection Time Re ceived Time Location / / Volume Laterality 04/11/2014 1:47 PM CDT Layne Tran MD ECG ORDERABLES Performing Organization Address City/State/ZIP Code Phon e Number RADIOLOGY RESULTS documented in this encounter Visit Diagnoses Diagnosis Aphasia - Primary TIA on medication Unspecified transient cerebral ischemia Seizure (H) Other convulsions documented in this encounter Administered Medications Inactive Administered Medications - up to 3 most recent administrations Medication Order MAR Action Action Date Dose Rate Site 0.9 % sodium chloride IV Rate/Dose Verify 04/13/2014 8:39 AM 1,000 mL s 50 mL/hr solution CDT at 50 mL/hr, Intravenous, CONTINUOUS, Starting on Mon04/11/14 at 1715, Until 04/13/14 at 1459 New Bag 04/13/2014 4:53 AM CDT 1,000 mLs 50 mL/hr Rate/Dose Verify 04/12/2014 7:53 AM CDT 1,000 mLs 50 mL/hr acetaminophen (TYLENOL) tablet 650 mg Given 04/13/2014 4:34 PM CDT 650 mg 650 mg, Oral, EVERY 4 HOURS PRN, mild pain, Starting on Mon04/11/14 at 1702, Alternate ibuprofen (if ordered) with acetaminophen. Not to exceed 4 grams/day. Maximum acetaminophen dose from all sources = 75 mg/kg/day not to exceed 4 grams/day. Given 04/12/2014 7:39 PM CDT 650 mg Given 04/12/2014 3:46 PM CDT 650 mg amLODIPine (NORVASC) tablet 5 mg Given 04/13/2014 8:35 AM CDT 5 mg 5 mg, Oral, DAILY, First dose on 04/12/14 at 0900, Hold for SBP <110 mmHg Given 04/12/2014 8:23 AM CDT 5 mg aspirin EC tablet 81 mg Given 04/13/2014 8:35 AM CDT 81 mg 81 mg, Oral, DAILY, First dose on Mon04/12/14 at 1030, DO NOT CRUSH. Given 04/12/2014 10:40 AM CDT 81 mg cyanocobalamin SL tablet 1,000 mcg Given 04/13/2014 8:33 AM CDT 1,000 mcg 1,000 mcg, Sublingual, DAILY, First dose on 04/12/14 at 0900 Given 04/12/2014 8:25 AM CDT 1,000 mcg enoxaparin (LOVENOX) injection 120 mg Given 04/13/2014 5:23 PM CDT 120 mg 120 mg (rounded from 116.8 mg = 1 mg/kg ? 116.8 kg), Subcutaneous, EVERY 12 HOURS, First dose on Mon04/13/14 at 1700 folic acid-vit B6-vit B12 (FOLGARD) tablet Given 04/13 8:35 AM CDT 1 tablet 1 tablet 1 tablet, Oral, DAILY, First dose on 04/12/14 at 0900 Given 04/12/2014 8:23 AM CDT 1 tablet heparin drip 25,000 units in New Bag 04/11/2014 5:55 PM CDT 12 Units/kg/hr 11 mL/hr 0.45% NaCl 250 mL Intravenous, at 11 mL/hr, CONTINUOUS, Starting on Mon04/11/14 at 1730, NO BOLUSES though out therapy Goal level of: 0.15-0.35 IU/mL Heparin instructions: Start heparin infusion at 1100 units/hr Recheck next heparin 10a(Xa): in 6 hours Heparin dosed per [facility] Protocol. Monitor platelets every three days while on anticoagulation therapy. heparin drip 25,000 Rate/Dose Verify 04/12/2014 7:54 AM 12 Units/kg/h r 11 mL/hr units in 0.45% NaCl 250 CDT mL Intravenous, at 11 mL/hr, CONTINUOUS, Starting on Mon04/12/14 at 0115, NO BOLUSES though out therapy Heparin Xa level: 0.23 Goal level of: 0.15-0.35 IU/mL Heparin instructions: Continue heparin infusion at 1100 units/hr Recheck next heparin 10a(Xa): in 6 hours Heparin dosed per [facility] Protocol. Monitor platelets every three days while on anticoagulation therapy. Rate/Dose Verify 04/12/2014 2:12 AM CDT 12 Units/kg/hr 11 mL/hr heparin drip 25,000 Rate/Dose Verify 04/13/2014 8:39 AM 12 Units/kg/h r 11 mL/hr units in 0.45% NaCl 250 CDT mL Intravenous, at 11 mL/hr, CONTINUOUS, Starting on 04/12/14 at 0900, NO BOLUSES though out therapy Heparin Xa level: 0.34 Goal level of: 0.15-0.35 IU/mL Heparin instructions: Continue heparin infusion at 1100 units/hr Recheck next heparin 10a(Xa): 04/13 with am labs Heparin dosed per [facility] Protocol. Monitor platelets every three days while on anticoagulation therapy. Rate/Dose Verify 04/13/2014 4:54 AM CDT 12 Units/kg/hr 11 mL/hr New Bag 04/12/2014 2:33 PM CDT 12 Units/kg/hr 11 mL/hr heparin drip 25,000 units in New Bag 04/13/2014 9:35 AM 1,050 Units/hr 10.5 mL/hr 0.45% NaCl 250 mL CDT Intravenous, at 10.5 mL/hr, CONTINUOUS, Starting on Mon04/13/14 at 0915, NO BOLUSES though out therapy Heparin Xa level: 0.36 Goal level of: 0.15-0.35 IU/mL Heparin instructions: decrease heparin infusion to 1050 units/hr Recheck next heparin 10a(Xa): 6 hr after rate chg Heparin dosed per [facility] Protocol. Monitor platelets every three days while on anticoagulation therapy. iopamidol (ISOVUE-370) 76% solution 120 mL Given 04/11/2014 2:37 PM CDT 120 mLs 120 mL, Intravenous, ONCE, On Mon04/11/14 at 1430, For 1 dose levETIRAcetam (KEPPRA) 750 mg in New Bag 04/11/2014 4:31 PM CD T 750 mg 400 mL/hr NaCl 0.9% 100 mL IVPB 750 mg, Intravenous, Administer over 15 Minutes, at 400 mL/hr, ONCE, On Mon04/11/14 at 1500, For 1 dose levETIRAcetam (KEPPRA) tablet 1,000 mg Given 04/13/2014 8:35 AM CDT 1,000 mg 1,000 mg, Oral, 2 TIMES DAILY, First dose on Mon04/12/14 at 1015 Given 04/12/2014 9:28 PM CDT 1,000 mg Given 04/12/2014 10:40 AM CDT 1,000 mg lisinopril (PRINIVIL,ZESTRIL) tablet 30 mg Given 04/13/2014 8:33 AM CDT 30 mg 30 mg, Oral, 2 TIMES DAILY, First dose on Mon04/11/14 at 2100 Given 04/12/2014 9:28 PM CDT 30 mg Given 04/12/2014 8:23 AM CDT 30 mg magnesium oxide (MAG-OX) tablet 400 mg Given 04/13/2014 8:33 AM CDT 400 mg 400 mg, Oral, EVERY MORNING, First dose on Mon04/12/14 at 0900 Given 04/12/2014 8:23 AM CDT 400 mg oxyCODONE (ROXICODONE) immediate release Given 04/11/2014 10:13 PM CDT 5 mg tablet 5-10 mg 5-10 mg, Oral, EVERY 3 HOURS PRN, moderate to severe pain, Starting on Mon04/11/14 at 1702 pregabalin (LYRICA) capsule 75 mg Given 04/12/2014 9:28 PM CDT 75 mg 75 mg, Oral, AT BEDTIME, First dose on Mon04/11/14 at 2200 Given 04/11/2014 9:12 PM CDT 75 mg rOPINIRole (REQUIP) tablet 1 mg Given 04/13/2014 4:34 PM CDT 1 mg 1 mg, Oral, AT BEDTIME, First dose on Mon04/11/14 at 2200 Given 04/12/2014 7:38 PM CDT 1 mg Given 04/11/2014 9:12 PM CDT 1 mg simvastatin (ZOCOR) tablet 20 mg Given 04/12/2014 9:28 PM CDT 20 mg 20 mg, Oral, AT BEDTIME, First dose on Mon04/11/14 at 2200 Given 04/11/2014 9:12 PM CDT 20 mg sodium chloride 0.9 % BOLUS New Bag 04/11/2014 2:49 PM CDT 1,000 m Ls 2000 mL/hr 1,000 mL Intravenous, 1,000 mL, ONCE, at 2,000 mL/hr, Administer over 30 Minutes, On Mon04/11/14 at 1430, For 1 dose sodium chloride 0.9 % for CT scan flush dose Given 2:37 PM CDT 100 mLs 100 mL Intravenous, 100 mL, ONCE, On Mon04/11/14 at 1430, For 1 dose, This entry is for use by Radiology to intermittently used as a flush in patients receiving a CT scan. warfarin (COUMADIN) tablet 10 mg Given 04/12/2014 6:08 PM CDT 10 mg 10 mg, Oral, ONCE AT 6PM, On 04/12/14 at 1800, For 1 dose documented in this encounter Active and Recently Administered Medications Times are shown in CDT. Scheduled Medication Order 04/11/2014 04/12/2014 04/13/2014 amLODIPine (NORVASC) tablet 5 mg (CANCELED) 08 (Given - Provider: Damian Bernstein RN) 0835 (Given - Provider: Damian Bernstein, RN) 5 mg, Oral, DAILY, First dose on 04/12/14 at 0900, Hold for S BP <110 mmHg aspirin EC tablet 81 mg (CANCELED) 1040 (Given - Provider: Damian Bernstein RN) 0835 (Given - Provider: Damian Bernstein, RN) 81 mg, Oral, DAILY, First dose on 04/12/14 at 1030, DO NOT CR [facility]. cyanocobalamin SL tablet 1,000 mcg (CANCELED) 0825 (Given - Provider: Damian Bernstein RN) 0833 (Given - Provider: Damian Bernstein RN) 1,000 mcg, Sublingual, DAILY, First dose on 04/12/14 at 0900 enoxaparin (LOVENOX) injection 120 mg 1723 (Given - Provider: Gabriel Ruiz RN) 120 mg (rounded from 116.8 mg = 1 mg/kg ? 116.8 kg), Subcutaneous, EVERY 12 HOURS, First dose on 04/13/14 at 1700 folic acid-vit B6-vit B12 (FOLGARD) tablet 1 tablet (CANCELE D) 0823 (Given - Provider: Damian Bernstein RN) 0835 (Given - Provider: Damian Bernstein, RN) 1 tablet, Oral, DAILY, First dose on 04/12/14 at 0900 iopamidol (ISOVUE-370) 76% solution 120 mL (COMPLETED) 1437 (Given - Provider: Katharina Rai) 120 mL, Intravenous, ONCE, Mon04/11/14 at 1430, For 1 dose levETIRAcetam (KEPPRA) 750 mg in NaCl 0.9% 100 mL IVPB (COMPLETED) 1631 (New Bag - Provider: Abbe Mathur, PIO) 750 mg, Intravenous, for 15 Minutes, ONCE, Mon04/11/14 at 1500, For 1 dose levETIRAcetam (KEPPRA) tablet 1,000 mg 1 040 (Given - Provider: Damian Bernstein RN)2127 (Given - Provider: Gabriel Ruiz, PIO) 0835 (Given - Provider: Damian Bernstein, RN) 1,000 mg, Oral, 2 TIMES DAILY, First dose on Mon04/12/14 at 1015 lisinopril (PRINIVIL,ZESTRIL) tablet 30 mg (CANCELED) 2111 (Given - Provider: Raegan Moran RN) 822 (Given - Provider: Damian Bernstein RN)2127 (Given - Provider: Gabriel Ruiz, PIO) 0833 (Given - Provider: Damian Bernstein, PIO) 30 mg, Oral, 2 TIMES DAILY, First dose on Mon04/11/14 at 2100 magnesium oxide (MAG-OX) tablet 400 mg (CANCELED) 822 (Given - Provider: Damian Bernstein RN) 0833 (Given - Provider: Damian Bernstein, PIO) 400 mg, Oral, EVERY MORNING, First dose on Mon04/12/14 at 0900 pregabalin (LYRICA) capsule 75 mg (CANCELED) 2111 (Giv en - Provider: Raegan Moran, PIO) 2127 (Given - Provider: Gabriel Ruiz, PIO) 75 mg, Oral, AT BEDTIME, First dose on Mon04/11/14 at 2200 rOPINIRole (REQUIP) tablet 1 mg (CANCELED) 2111 (Given - Provider: Raegan Moran, PIO) 1937 (Given - Provider: Gabriel Ruiz RN - Comment: given early at pt's request)2253 (Not Given - Provider: Gabriel Ruiz RN - Reason: Other - Comment: given early at pt's request, see MAR) 163 (Given - Provider: Gabriel Ruiz, PIO) 1 mg, Oral, AT BEDTIME, First dose on Mon04/11/14 at 2200 simvastatin (ZOCOR) tablet 20 mg (CANCELED) 2111 (Give n - Provider: Raegan Moran, PIO) 2127 (Given - Provider: Gabriel Ruiz, PIO) 20 mg, Oral, AT BEDTIME, First dose on Mon04/11/14 at 2200 sodium chloride 0.9 % BOLUS 1,000 mL (COMPLETED) 1449 (New Bag - Provider: Tri Dominguez RN) Intravenous, 1,000 mL, ONCE, at 2,000 mL /hr, for 30 Minutes, Mon04/11/14 at 1430, For 1 dose sodium chloride 0.9 % for CT scan flush dose 100 mL (C OMPLETED) 1437 (Given - Provider: Katharina Rai) Intravenous, 100 mL, ONCE, Mon04/11/14 a t 1430, For 1 dose, This entry is for use by Radiology to intermittently used as a flush in patients receiving a CT scan. warfarin (COUMADIN) tablet 10 mg (COMPLETED) 180 (Given - Provider: Gabriel Ruiz, PIO) 10 mg, Oral, ONCE AT 6PM, 04/12/14 at 1800, For 1 dose Continuous Medication Order 04/11/2014 04/12/2014 04/13/2014 0.9 % sodium chloride IV solution (CANCELED) 1759 (New Bag - Provider: Bernarda Campo, PIO) 0647 (Rate/Dose Verify - Provider: Tiago Mott RN)0753 (Rate/Dose Verify - Provider: Damian Bernstein, RN) 0453 (New Bag - Provider: Fariba Mott RN)0839 (Rate/Dose Verify - Provider: Damian Bernstein, RN) at 50 mL/hr, Intravenous, CONTINUOUS, St arting Mon04/11/14 at 1715, Until 04/13/14 at 1459 heparin drip 25,000 units in 0.45% NaCl 250 mL (CANCEL ED) 1755 (New Bag - Provider: Brenarda Campo, PIO) 11 mL/hr (rounded from 11.196 mL/hr = 12 Units/kg/hr ? 93.3 kg Adjusted weight), Intravenous, at 11 mL/hr, CONTINUOUS, Starting 04/11/14 at 1730, NO BOLUSES though out therapy Goal level of: 0.15-0. 35 IU/mL Heparin instructions: Start hep thanh infusion at 1100 units/hr Recheck next heparin 10a(Xa): in 6 hours Heparin dosed per [facility] Protocol. Monitor platelets every three days while on anticoagulation therapy. heparin drip 25,000 units in 0.45% NaCl 250 mL (CANCELED) 0212 (Rate/Dose Verify - Provider: Fariba Mott RN)0213 (Canceled Entry - Provider: Fariba Mott RN)0754 (Rate/Dose Verify - Provider: Damian Bernstein RN) 11 mL/hr (rounded from 11.196 mL/hr = 12 Units/kg/hr ? 93.3 kg Adjusted weight), Intravenous, at 11 mL/hr, CONTINUOUS, Starting 04/12/14 at 0115, NO BOLUSES though out therapy Heparin Xa level: 0.23 Goal level of: 0.15-0.35 IU/mL Heparin instructions: Continue heparin infusion at 1100 units/hr Recheck next heparin 10a(Xa): in 6 hours Heparin dosed per [facility] Protocol. Monitor platelets every three days while on anticoagulation therapy. heparin drip 25,000 units in 0.45% NaCl 250 mL (CANCELED) 0920 (New Bag - Provider: Damian Bernstein RN)1433 (New Bag - Provider: Damian Bernstein RN) 0454 (Rate/Dose Verify - Provider: Fariba Mott RN)0839 (Rate/Dose Verify - Provider: Damian Bernstein RN) 11 mL/hr (rounded from 11.196 mL/hr = 12 Units/kg/hr ? 93.3 kg Adjusted weight), Intravenous, at 11 mL/hr, CONTINUOUS, Starting 04/12/14 at 0900, NO BOLUSES though out therapy Heparin Xa level: 0.34 Goal level of: 0.15-0.35 IU/mL Heparin instructions: Continue heparin infusion at 1100 units/hr Recheck next heparin 10a(Xa): 04/13 with am labs Heparin dosed per [facility] Protocol. Monitor platelets every three days while on anticoagulation therapy. heparin drip 25,000 units in 0.45% NaCl 250 mL (CANCELED) 0935 (New Bag - Provider: Damian Bernstein, RN) 10.5 mL/hr (1,050 Units/hr), Intravenous , at 10.5 mL/hr, CONTINUOUS, Starting 04/13/14 at 0915, NO BOLUSES though out therapy Heparin Xa level: 0.36 Goal level of: 0.15-0.35 IU/mL Heparin instruction s: decrease heparin infusion to 1050 uni ts/hr Recheck next heparin 10a(Xa): 6 hr after rate chg Heparin dosed per [facility] Protocol. Monitor platelets every three days while on anticoagulation therapy. PRN Medication Order 04/11/2014 04/12/2014 04/13/2014 acetaminophen (TYLENOL) tablet 650 mg (CANCELED) 1710 (Given - Provider: Raegan Moran RN)2112 (Given - Provider: Raegan Moran RN) 1546 (Given - Provider: Damian Bernstein, PIO)1939 (Given - Provider: Gabriel Ruiz, PIO) 1634 (Given - Provider: Gabriel Ruiz RN) 650 mg, Oral, EVERY 4 HOURS PRN, mild pa in, Starting Mon04/11/14 at 1702, Alternate ibuprofen (if ordered) with acetaminophen. Not to exceed 4 grams/day. Maximum acetaminophen dose from all sources = 75 mg/kg/day not to exceed 4 grams/day. oxyCODONE (ROXICODONE) immediate release tablet 5-10 m g (CANCELED) 221 (Given - Provider: Raegan Moran RN) 5-10 mg, Oral, EVERY 3 HOURS PRN, modera te to severe pain, Starting Mon04/11/14 at 1702 documented in this encounter Care Teams Robotics Specialist Relationship Specialty Start Date End Date Abbe Charles MD PCP - General 04/01/08 04/13/14 [facility] [address] [place] [address], [place] [address] documented as of this encounter
--- OUTSIDE RECORDS SUMMARY | 2022-07-25 16:08 | XMS_ITS | Encounter Summary ---
:1950 Author Organization [place] Address [facility] [place] [address] Care Team Providers Name Role Phone Abbe Charles MD Primary Care Provider Encounter Details Date Type Department Care Team Description 01/17/2014 Orders Only [facility] [place], Radha Inflammat ory and toxic neuropathy, unspecified (Primary Dx); [facility] MD Nichole Other late effects of cerebrovascular di sease; [address] [facility] Unspecified visual disturban ce; [place], [place] NEUROLOGY Headache [phone] [phone] [place] [address] Social History Tobacco Use Types Packs/Day Years Used Date Never Smoker Alcohol Use Standard Drinks/Week Comments No 0 (1 standard drink = 0.6 oz pure alcoho l) Sex Assigned at Date Recorded Not on file documented as of this encounter Plan of Treatment Not on filedocumented as of this encounter Visit Diagnoses Diagnosis Inflammatory and toxic neuropathy, 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
--- OUTSIDE RECORDS SUMMARY | 2022-07-25 16:08 | XMS_ITS | Encounter Summary ---
:1950 Author Organization [facility] Address [address] [place] [address]. [place] [address] Care Team Providers Name Role Phone Abbe Charles MD Primary Care Provider Encounter Details Date Type Department Care Team Description 04/02/2014 Emergency [facility] Jose Coon ( [facility][note 3] Emergency Dep gwendolyn Rodriguez MD ischemic attack) [address] [facility]YS[facility]ANS (Primary Dx) [place], [place] [address] [address] [phone] [address] [place], [place] [address] (Wo rk) Social History Tobacco Use Types Packs/Day Years Used Date Never Smoker Alcohol Use Standard Drinks/Week Comments No 0 (1 standard drink = 0.6 oz pure alcoho l) Sex Assigned at Date Recorded Not on file documented as of this encounter Last Filed Vital Signs Vital Sign Reading Time Taken Comments Blood Pressure 138/73 04/02/2014 9:00 PM CDT Pulse - - Temperature - - Respiratory Rate - - Oxygen Saturation 97% 04/02/2014 9:00 PM CDT Inhaled Oxygen Concentration - - Weight - - Height - - Body Mass Index - - documented in this encounter Discharge Instructions Discharge InstructionsPeJose tee MD - 04/02/2014 9:08 PM CDT Home Back SP TIA:Transient Ischemic Attack [image] The spell you had today is called a TIA (mini-stroke). It is caused by a temporary decrease or blockage of blood flow to a part of your brain. A TIA often happens when a blood clot travels to a blood vessel in the brain. The clot reduces or blocks blood flow, resulting in the symptoms you had. After ashort while, the clot dissolves, blood flows again, and the symptoms disappear. Persons with atherosclerosis (hardening of the arteries) or atrial fibrillation (a type of irregular heartbeat) are at higher risk of TIA. TIA causes temporary symptoms similar to a stroke, but lasts less than 24 hours. A full stroke causes symptoms that last more than 24 hours and may be permanent. Once you have had a TIA, you are at risk of having a full stroke. Therefore, be sure to follow up with your doctor for further evaluation. This may include an ultrasound of the arteries in your neck and an evaluation of your heart. If problems are found, your doctor will recommend treatment with medications and/or procedures. Medications to reduce your chance of having another TIA (and stroke) include those that prevent blood clots, such as antiplatelet medicines (aspirin and Plavix) and anticoagulant medicines (warfarin). Home Care: ?? If all of your symptoms have resolved, there is nothing special that you need to do today. Rest at home and avoid exertion for the rest of the day. ?? If your doctor has prescribed antiplatelet medication, take it as directed. Other Ways To Reduce Your Risk Of Stroke Hypertension, diabetes, elevated cholesterol and smoking are risk factors for stroke and heart disease. These can be controlled through medications, diet and lifestyle changes. Taking daily aspirin (orsimilar medications) is a simple but important part of preventing stroke. Follow Up: Call your doctor for an appointment in the next few days for another evaluation. Additional tests may be needed. If you had an x-ray, CT scan, MRI scan, or ECG (electrocardiogram), it will be reviewed by a specialist. You???ll be notified of any new findings that will affect your care. Call 911 Or Emergency Services if any of the following occur: ?? Any of your TIA symptoms return ?? New problems with speech, vision, walking, or weakness or numbeness of the face or on one side ofthe body ?? Severe headache, fainting spell, dizziness or seizure ?? [phone] [facility], [address] [place] [address], [place] [address]. All rights reserved. This information is not intended as a substitute for professional medical care. Always follow your healthcare professional's instructions. documented in this encounter Medications at Time of Discharge Medication Sig Dispensed Refills Start Date End Date lisinopril Take 20 mg by mouth 0 (PRINIVIL,ZESTRIL) 30 MG 2 times daily tablet MAGNESIUM OXIDE PO Take 500 mg by 0 mouth every morning ROPINIROLE HCL PO Take 2 mg by mouth 0 At Bedtime (Takes 4 x 0.5mg tabs for a total of 2mg at bedtime) simvastatin (ZOCOR) 20 MG Take 20 mg by mouth 0 tablet every morning amLODIPine (NORVASC) 5 MG Take 1 tablet (5 30 tablet 0 02/201404/21/2014 tabletIndications: HTN mg) by mouth daily (hypertension) aspirin 81 MG tablet Take 1 tablet (81 30 tablet 0 04/02/20 14 04/13/2014 mg) by mouth daily ATENOLOL PO Take 100 mg by 0 5 mouth every morning cyanocobalamin [address] 2 tablets 30 tablet 0 03/27/20 14 04/21/2014 SUBLIndications: Vitamin (1,000 mcg) under B12 deficiency (non the tongue daily anaemic) folic acid-vit B6-vit B12 Take 1 tablet by 0 02/28/2016 (FOLGARD) 0.8-10-0.115 MG mouth daily TABS GABAPENTIN PO Take 600 mg by 0 015 mouth At Bedtime GABAPENTIN PO Take 300 mg by 0 015 mouth every morning INDOMETHACIN Take 25 mg by mouth 0 POIndications: Acute Gouty 3 times daily (with Arthritis meals) Multiple Vitamin Take 1 tablet by 0 (MULTI-VITAMIN) per tablet mouth daily. Pregabalin (LYRICA PO) Take 75 mg by mouth 0 02/28/2016 At Bedtime Riboflavin (VITAMIN B-2 Take 200 mg by 0 06/22/2018 PO) mouth 2 times daily warfarin (COUMADIN) 10 MG Take 1 tablet (10 30 tablet 0 02/201404/11/2014 tabletIndications: TIA on mg) by mouth daily medication documented as of this encounter ED Notes Jose Coon MD - 04/02/2014 6:50 PM CDT History Chief Complaint: Light Headedness HPI Damon Mccall is a 63 year old male with history of HTN and stroke who presents with light headedness. The patient was recently admitted on 03/21/14 for acute right sided weakness, aphasia, and transientvision loss in the right eye. The patient has discontinued his Plavix and Aspirin, and was placed onCoumadin and Heparin. Yesterday and today the patient reports feeling light headed. 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 The patient has a cardiac monitoring chip in place and they could not identify any dysrhythmia. During his appointment the patient reports feeling light headed every 10-15 seconds, lasting 1-2 seconds in duration. He reports the light headed spells increased on the drive home and around 6 PM the patient had slurred speech per which resolved shortly after. His slurredspeech returned at 6:15 PM and resolved shortly after again. Currently here in the ED the patient does not demonstrate slurred speech or facial asymmetry. He does report a left-sided headache. He denies vision difficulty, chest pain, shortness of breath, vomit, nausea, or fever. Of note, the patient reports he was placed on Indomethacin for gout yesterday. His Coumadin dosage has been decreased to 2.5 mg and his INR ranges from 2.6-3.5. The patient voices no other complaints at this time. Allergies: NKDA Medications: Indomethacin Coumadin Atenolol Gabapentin Lyrica Ropinirole Lisinopril Zocor Past Medical History: Neuropathy HTN Stroke Past Surgical History: GI surgery Resection abdominal perineal Colonoscopy Family History: The patient denies a pertinent family history. Social History: Marital status: Tobacco use: negative Alcohol use: negative Patient presents to the ED with . Review of Systems Constitutional: Negative for fever. Eyes: Negative for visual disturbance. Respiratory: Negative for shortness of breath. Cardiovascular: Negative for chest pain. Gastrointestinal: Negative for nausea and vomiting. Neurological: Positive for speech difficulty, light-headedness and headaches. Negative for facial asymmetry. All other systems reviewed and are negative. Physical Exam First Vitals: Blood pressure: 138/73 Pulse: 54 SpO2: 97% Physical Exam Constitutional: Appears well-developed and well-nourished. Alert. Conversant. Non toxic. HENT: Head: Atraumatic. Nose: Nose normal. Mouth/Throat: Oropharynx is clear and moist. Eyes: Conjunctivae normal. EOM are normal. Pupils are equal, round, and reactive to light. No scleral icterus. Neck: Normal range of motion. Neck supple. No tracheal deviation present. No carotid bruits. Cardiovascular: Normal rate, regular rhythm. Exam reveals no gallop and no friction rub. No murmur heard. Symmetric radial artery pulses Pulmonary/Chest: Effort normal. No stridor. No respiratory distress. No wheezes. No rales. No rhonchi . No tenderness. Abdominal: Soft. Bowel sounds are normal. No distension. No mass. There is no tenderness. There is no rebound and no guarding. Musculoskeletal: Normal range of motion. No edema. No tenderness. No deformity Lymph: No cervical adenopathy. Neurological: Cranial Nerves intact II-XII except I did not formally test gag or visual acuity. EOMI. Strength 5/5 bilaterally in the trapezius, deltoid, biceps, triceps, dye house vat worker, thumb opposition, finger abduction, psoas, quadriceps, hamstring, gastrocnemius, tibialis anterior. Sensation intact to light touch in all 4 extremities (C4-T1 and L4-S1). Finger to nose and coordination are normal. Mental status normal. Attention normal. GCS 15. Memory normal. Speech fluent and normal. Cognition normal.Gait normal. No focal deficits. Skin: Skin is warm and dry. No rash noted. No pallor. Normal capillary refill. Psychiatric: normal mood and affect. Emergency Department Course ECG: @ 1844 Rate 58 bpm. GA interval 192 ms. QRS duration 104 ms. QT/QTc 418/410 ms. P-R-T axes -40. Notes: Sinus bradycardia. Left axis deviation. Minimal voltage criteria for LVH, may be normal variant. Septal infarct, age undetermined. Abnormal ECG. Time read 1848. Imaging: XR Chest 2 Views: IMPRESSION: No evidence for active cardiopulmonary disease. There is a metallic device measuring approximately 4 cm in length projecting in the region of the left chest anterior soft tissues. This could be internal or external. It was not present on chest x-ray dated 10/06/2003. Preliminary read per radiology. 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 There are some minimal nonspecific white matter changes without mass effect. Ventricles and subarachnoid spaces are normal. There is no evidence for intracranial hemorrhage, mass effect, acute infarct, or skull fracture. Preliminary read per radiology. Radiographic findings were communicated with the patient and family who voiced understanding of the findings. Laboratory: Creatinine: 1.2 (WNL) CBC: WBC 5.7 (WNL) HGB 14.7 (WNL) PLT 219 (WNL) Rest WNL BMP: Cr 1.23 (WNL) GFR 59 (low) Rest WNL Troponin: <0.012 (WNL) INR: 2.26 (high) Glucose by meter: 85 (WNL) Interventions: NS, 1 L, IV Aspirin, 81 mg, PO ED Course: The patient was roomed. The patient was placed on pulse oximetry. Oxygen administered via nasal cannula. The patient's medical charts were reviewed and I examined the patient. 8:34 PM - I consulted with Dr. Jones from neurology. 9:03 PM - I spoke with Dr. Greene with stroke neurology at [facility]. Findings and plan explained to the Patient and spouse. Patient discharged home with instructions regarding supportive care, medications, and reasons to return. The importance of close follow-up was reviewed. The patient was prescribed Aspirin. Impression & Plan Medical Decision Making: This is a 63 year old gentleman with a complex medical history and a complex past neurological history. He has a history of stroke and then was admitted about 2 weeks ago at [facility] to the stroke service for recurrent TIAs even though he was already on Aspirin and Plavix. He was ultimately bridged with Heparin and transitioned to Coumadin. He has been therapeutic with his INR since discharge. Despite that, he came in tonight with two brief episodes concerning for recurrent TIAs. Here in the ER he is now neurologically intact and has no sign of any persistent stroke symptoms. CT scan of his head was negative for any acute bleed. INR was therapeutic. The rest of his lab evaluation and chest XR were reassuring. He is clearly not a TPA candidate given that he is already on Coumadin and has resolution of his symptoms. Likewise, I don???t think intra- arterial intervention is warranted either. The real challenge here was to figure out what to do with his anticoagulation since he is having recurrent TIA symptoms even though he is therapeutic on Coumadin. I contacted Dr. Jones from neurology who deferred to the stroke neurologist from [facility]. I spoke with Dr. Greene from stroke neurology and he recommended adding a baby Aspirin to the Coumadin. He doesn???t think that readmission for observation is warranted. He does want the patient to follow up as an outpatient with Dr. Fox in the stroke clinic and he will arrange that appointment with the clinic to call the patient in the morning. I discussed the plan of care with the patient and his and they are in full agreement. They are also eager to be discharged from the ER. Diagnosis: 1. Recurrent TIAs (435.9) Disposition: Discharge to home. I, Robyn Coon, am serving as a scribe on 04/02/2014 at 6:51 PM to personally document services performed by Dr. Coon based on my observations and the provider's statements to me. Jose Coon MD 04/02/14 [id number] Sharla Gomez RN - 04/02/2014 6:42 PM CDT Pt. Comes to ED with lightheadedness starting yesterday and becoming more frequently today. ROJAS on left side. Slurred speech. Pt. Last seen normal 1400 yesterday. Slurred speech started at 1800 tonight. BP 106/72 at home. documented in this encounter Plan of Treatment Not on filedocumented as of this encounter Procedures Procedure Name Priority Date/Time Associated Comments Diagnosis XR CHEST 2 VIEWS STAT 04/02/2014 7:29 PM Resul ts for this CDT procedure are i n the results section. CT HEAD W/O CONTRAST STAT 04/02/2014 7:17 PM R esults for this CDT procedure are i n the results section. ISTAT CREATININE POCT Routine 04/02/2014 6:51 PM Results for this CDT procedure are i n the results section. CBC WITH PLATELETS & STAT 04/02/2014 6:46 PM R esults for this DIFFERENTIAL CDT procedure are i n the results section. TROPONIN I STAT 04/02/2014 6:46 PM Results f or this CDT procedure are i n the results section. INR Routine 04/02/2014 6:46 PM Results f or this CDT procedure are i n the results section. BASIC METABOLIC PANEL STAT 04/02/2014 6:46 PM Results for this CDT procedure are i n the results section. GLUCOSE BY METER Routine 04/02/2014 6:45 PM Resul ts for this CDT procedure are i n the results section. EKG 12-LEAD, TRACING STAT 04/02/2014 6:44 PM R esults for this ONLY CDT procedure are i n the results section. documented in this encounter Results XR Chest 2 Views (04/02/2014 7:29 PM CDT) Anatomical Region Laterality Modality Chest Computed Radiography Specimen (Source) Anatomical Location Collection Method / Collectio n Time Received Time / Laterality Volume Impressions 04/02/2014 9:38 PM CDT IMPRESSION: No evidence for active cardiopulmonary disease. There is a metallic device measuring approximately 4 cm in length projecting in the region of the left chest anterior so ft tissues. This could be internal or external. It was not present on chest x-ray dated 10/06/2003. HORACIO HELTON MD Narrative 04/02/2014 9:38 PM CDT CHEST TWO VIEWS ?? 04/02/2014 7:29 PM HISTORY: Stroke symptoms. Procedure Note Horacio Helton MD - 04/02/2014Form atting of this note might be different from the original. CHEST TWO VIEWS 04/02/2014 7:29 PM HISTORY: Stroke symptoms. IMPRESSION IMPRESSION: No evidence for active cardi opulmonary disease. There is a metallic device measuring approximately 4 cm in length projecting in the region of the left chest anterior so ft tissues. This could be internal or external. It was not present on chest x-ray dated 10/06/2003. HORACIO HELTON MD Jose Coon MD IMG DIAGNOSTIC IMAGING ORDER BRICE CT Head w/o Contrast (04/02/2014 7:17 PM CDT) Anatomical Region Laterality Modality Head, SUBRAD CT NEURO, SUBRAD CT NEURO, UMP CT NEURO Computed Tomography Specimen (Source) Anatomical Location Collection Method / Collectio n Time Received Time / Laterality Volume Impressions 04/02/2014 9:33 PM CDT IMPRESSION: Chronic changes. No evidence for intracranial hemorrhage or any acute process. HORACIO HELTON MD Narrative 04/02/2014 9:[address] HEAD WITHOUT CONTRAST 04/02/2014 7:17 PM HISTORY: Slurred speech. TECHNIQUE: Axial images were obtained th rough the brain without contrast. COMPARISON: 03/21/2014. FINDINGS: There is old left cerebellar i nfarct. There are some minimal nonspecific white matter changes without mass effect. Ventricles and subarachnoid spaces are normal. There is no evidence for intracranial hemorrhage, mass effect, acute infarct, or skull fracture. Procedure Note Horacio Helton MD - 04/02/2014Form atting of this note might be different from the original. CT HEAD WITHOUT CONTRAST 04/02/2014 7:17 PM HISTORY: Slurred speech. TECHNIQUE: Axial images were obtained th rough the brain without contrast. COMPARISON: 03/21/2014. FINDINGS: There is old left cerebellar i nfarct. There are some minimal nonspecific white matter changes without mass effect. Ventricles and subarachnoid spaces are normal. There is no evidence for intracranial hemorrhage, mass effect, acute infarct, or skull fracture. IMPRESSION IMPRESSION: Chronic changes. No evidence for intracranial hemorrhage or any acute process. HORACIO HELTON MD Jose Coon MD IMG CT ORDERABLES Creatinine POCT (04/02/2014 6:51 PM CDT) athologist Signature Creatinine 1.2 0.66 - POINT OF CARE 1.25 mg/dL TEST, HANDHELD METER GFR Estimate 61 >60 POINT OF CARE mL/min/1.7 TEST, HANDHELD m2 METER GFR Estimate If 74 >60 POINT OF CARE Black mL/min/1.7 TEST, HANDHELD m2 METER Specimen Anatomical Collection Method Collection Time Receive d Time (Source) Location / / Volume Laterality 04/02/2014 6:51 PM 4 7:00 CDT PM CDT Jose Coon MD LAB - BEAKER POCT Performing Organization Address City/State/ZIP Code Phon e Number FV POINT OF CARE TEST, HANDHELD METER POINT OF CARE TEST, HANDHELD METER (ABNORMAL) INR (04/02/2014 6:46 PM CDT) P athologist Signature INR 2.26 (H) 0.86 - 1.14 [facility] Specimen Anatomical Collection Method Collection Time Receive d Time (Source) Location / / Volume Laterality 04/02/2014 6:46 PM 4 7:13 CDT PM CDT Jose Coon MD LAB - BLOOD ORDERABLES Performing Organization Address [facility] Phon dheeraj Cervantes [place] [address] [place], [place] [address] [facility] Troponin I (04/02/2014 6:46 PM CDT) athologist Signature Troponin I ES <0.012 0.000 - [facility] 0.034 ug/L [facility] Specimen Anatomical Collection Method Collection Time Receive d Time (Source) Location / / Volume Laterality Blood specimen 04/02/2014 6:46 PM 014 7:13 (specimen) CDT PM CDT Jose Coon MD LAB - BLOOD ORDERABLES Performing Organization Address [facility] dheeraj Cervantes [place] [address] [place], [place] [address] [facility] (ABNORMAL) Basic metabolic panel (04/02/2014 6:46 PM CDT) athologist Signature Sodium 139 133 - 144 [place] mmol/L [facility] Potassium 4.3 3.4 - 5.3 [place] mmol/L [facility] Chloride 101 94 - 109 [place] mmol/L [facility] Carbon Dioxide 26 20 - 32 [place] mmol/L [facility] Anion Gap 12 6 - 17 [place] mmol/L [facility] Glucose 82 60 - 99 [place] mg/dL [facility] Urea Nitrogen 25 7 - 30 [place] mg/dL [facility] Creatinine 1.23 0.66 - [facility] 1.25 mg/dL [facility] GFR Estimate 59 (L) >60 [place] mL/min/1.[address] LAB GFR Estimate If 71 >60 [place] Black mL/min/1.[address] [place] [address] LAB Calcium 9.3 8.5 - 10.4 [place] mg/dL [facility] Specimen Anatomical Collection Method Collection Time Receive d Time (Source) Location / / Volume Laterality Blood specimen 04/02/2014 6:46 PM 014 7:13 (specimen) CDT PM CDT Jose Coon MD LAB - BLOOD ORDERABLES Performing Organization Address City/State/ZIP Code Phon e Billy M [place] [address] [place], [place] [address] [facility] CBC with platelets differential (04/02/2014 6:46 PM CDT) [facility] gist Method Time Signature WBC 5.7 4.0 - [place] 11.0 [employer] 10e9/[facility] RBC Count 4.79 4.4 - 5.9 [place] 10e12/L [facility] Hemoglobin 14.7 13.3 - [place] 17.7 g/dL [facility] Hematocrit 42.9 40.0 - [place] 53.0 % [facility] MCV 90 78 - 100 [place] fl [facility] MCH 30.7 26.5 - [place] 33.0 pg [facility] MCHC 34.3 31.5 - [place] 36.5 g/dL [facility] RDW 12.2 10.0 - [place] 15.0 % [facility] Platelet Count 219 150 - [address]/[facility] Diff Method Automated [facility] % Neutrophils 48.9 % [facility] % Lymphocytes 34.4 % [facility] % Monocytes 12.0 % [facility] % Eosinophils 3.4 % [facility] % Basophils 1.1 % [facility] % Immature 0.2 % [place] Granulocytes [facility] Absolute 2.8 1.6 - 8.3 [place] Neutrophil 10e9/L [facility] Absolute 2.0 0.8 - 5.3 [place] Lymphocytes 10e9/[facility] Absolute 0.7 0.0 - 1.3 [place] Monocytes 10e9/[facility] Absolute 0.2 0.0 - 0.7 [place] Eosinophils 10e9/L [facility] Absolute 0.1 0.0 - 0.2 [place] Basophils 10e9/L [facility] Abs Immature 0.0 0 - 0.4 [place] Granulocytes [facility] Specimen Anatomical Collection Method Collection Time Receive d Time (Source) Location / / Volume Laterality Blood specimen 04/02/2014 6:46 PM 014 7:13 (specimen) CDT PM CDT Jose Coon MD LAB - BLOOD ORDERABLES Performing Organization Address City/State/ZIP Code Phon e Number [facility] [address] [place], [place] [address] [facility] Glucose by meter (04/02/2014 6:45 PM CDT) P athologist Signature Glucose 85 60 - 99 POINT OF CARE mg/dL TEST, GLUCOSE Comment: /RN Notified Specimen Anatomical Collection Method Collection Time Receive d Time (Source) Location / / Volume Laterality 04/02/2014 6:45 PM 4 6:50 CDT PM CDT Jose Coon MD LAB - BEAKER POCT Performing Organization Address City/[facility]/ZIP Code Phon e Number [facility] POINT OF CARE TEST, GLUCOSE POINT OF CARE TEST, GLUCOSE EKG 12 lead (04/02/2014 6:44 PM CDT) Patholo gist Method Time Signature Interpretation ECG Click View RADIOLOGY Image link RESULTS to view waveform and result Specimen (Source) Anatomical Collection Method Collection Time Re ceived Time Location / / Volume Laterality 04/02/2014 6:44 PM CDT Jose Coon MD ECG ORDERABLES Performing Organization Address City/State/ZIP Code Phon e Number RADIOLOGY RESULTS documented in this encounter Visit Diagnoses Diagnosis TIA (transient ischemic attack) - Primar y Unspecified transient cerebral ischemia documented in this encounter Administered Medications Inactive Administered Medications - up to 3 most recent administrations Medication Order MAR Action Action Date Dose Rate Site aspirin chewable tablet 81 mg Given 04/02/2014 9:16 PM CDT 81 mg 81 mg, Oral, ONCE, On Mon04/02/14 at 2115, For 1 dose documented in this encounter Active and Recently Administered Medications Times are shown in CDT. Scheduled Medication Order 03/31/2014 04/01/2014 04/02/2014 aspirin chewable tablet 81 mg (COMPLETED) 2115 (Given - Provider: Sharla Gomez RN) 81 mg, Oral, ONCE, On Mon04/02/14 at 2115, For 1 dose documented in this encounter Care Teams Radio Control Crane Operator Relationship Specialty Start Date End Date Abbe Charles MD PCP - General 04/01/08 04/13/[address] [id number] documented as of this encounter
--- OUTSIDE RECORDS SUMMARY | 2022-07-25 16:08 | XMS_ITS | Encounter Summary ---
:1950 Author Organization [facility] Address [address] [place] [address] Care Team Providers Name Role Phone Abbe Charles MD Primary Care Provider Encounter Details Date Type Department Care Team Description 03/25/2014 Results Only [facility] Austyn Bravo MD Hospital Results [address] [place], [place] [id number] (Wo rk) Social History Tobacco Use Types Packs/Day Years Used Date Never Smoker Alcohol Use Standard Drinks/Week Comments No 0 (1 standard drink = 0.6 oz pure alcoho l) Sex Assigned at Date Recorded Not on file documented as of this encounter Plan of Treatment Not on filedocumented as of this encounter Procedures Procedure Name Priority Date/Time Associated Diagnosis Comme nts H LOOP RECORDER 03/25/2014 4:04 PM Result s for this IMPLANT CDT procedure are i n the results section. documented in this encounter Results EP Loop recorder implant (03/25/2014 4:04 PM CDT) Anatomical Region Laterality Modality Other Specimen (Source) Anatomical Collection Method Collection Time Re ceived Time Location / / Volume Laterality 03/25/2014 4:04 PM CDT Narrative 03/28/2014 3:35 PM CDT MARLENE MCCALL PROCEDURE NOTE NAME OF PROCEDURE PERFORMED: ??Implantat ion of a loop recorder. INDICATION FOR PROCEDURE: ??Mr. Mccall is a 63-year-old white male with a history of recurrent stroke of unknown etiology. ??Loop recorder implantation was recommended for detecti on of atrial fibrillation. PROCEDURE AND RESULTS: ??After the writt en informed consent was obtained, the patient was transported to [facility] in the fasting state. ??The procedure was performed und er local anesthesia and sterile conditions. ??Intravenous Versed and fentanyl were used for conscious sedation. ??A small incision w as made over the left parasternal area, and the loop recorder was inserted with a 45 degree angle subcutaneously. ??The wound was dr essed in a sterile fashion. ?? There was no complication. Naomie Boyd M.D. Procedure Note Naomie Boyd MD - 03/28/2014 [facility]LENE MCCALL PROCEDURE NOTE NAME OF PROCEDURE PERFORMED: Implantatio n of a loop recorder. INDICATION FOR PROCEDURE: Mr. Mccall is a 63-year-old white male with a history of recurrent stroke of unknown etiology. Loop recorder implantation was recommended for detecti on of atrial fibrillation. PROCEDURE AND RESULTS: After the written informed consent was obtained, the patient was transported to [facility] in the fasting state. The procedure was performed under local anesthesia and sterile conditions. Intravenous Versed a nd fentanyl were used for conscious sedation. A small incision was made over the left parasternal area, and the loop recorder was inserted with a 45 degree angle subcutaneously. The wound was dres sed in a sterile fashion. There was no complication. Naomie Boyd M.D. Austyn Avalos MD [facility] documented in this encounter Visit Diagnoses Not on filedocumented in this encounter Care Teams Agency Owner Relationship Specialty Start Date End Date Abbe Charles MD PCP - General 04/01/08 04/13/[address] [id number] documented as of this encounter
--- OUTSIDE RECORDS SUMMARY | 2022-07-25 16:08 | XMS_ITS | Encounter Summary ---
:1950 Author Organization [facility] [place] [address] Care Team Providers Name Role Phone Abbe Charles MD Primary Care Provider Reason for Visit Reason Comments Cerebrovascular Accident pt had acute onset right steve e weakness with expressive aphasia Auth/Cert - Closed Specialty Diagnoses / Procedures Referred By Contact Refer red To Contact Diagnoses Acute ischemic stroke (H) TIA on medication Neuroscience [address] [phone] Phone: Referral ID Status Reason Start Date Expiration Date Visits Requ ested Visits Authorized [id number] Closed 03/22/2014 09/18/2014 1 1 Encounter Details Date Type Department Care Team Description 03/21/2014 - [facility] Jazmin West MD [facility] [address] [place] [id number] TIA on medication (Primary Dx); 03/27/2014 Encounter Stacey Palacios MD [address] [address] Acute ischemic stroke (H); Neuroscience Unit HTN (hypertension); [address] Vitamin B12 deficiency (non anaemic) [address] [id number] Social History Tobacco Use Types Packs/Day Years Used Date Never Smoker Alcohol Use Standard Drinks/Week Comments No 0 (1 standard drink = 0.6 oz pure alcoho l) Sex Assigned at Date Recorded Not on file documented as of this encounter Last Filed Vital Signs Vital Sign Reading Time Taken Comments Blood Pressure 171/85 03/27/2014 11:24 AM CDT Pulse 54 03/26/2014 11:54 PM CDT Temperature 36.6 ??C (97.9 ??F) 03/27/2014 11:24 AM CDT Respiratory Rate 16 03/27/2014 11:24 AM CDT Oxygen Saturation 98% 03/27/2014 11:24 AM CDT Inhaled Oxygen Concentration - - Weight 120 kg (264 lb 8.8 oz) 03/27/2014 5:29 AM CDT Height 185.4 cm (6' 0.99) 03/21/2014 2:00 PM CDT Body Mass Index 34.91 03/21/2014 2:00 PM CDT documented in this encounter Discharge Summaries Brandon Henderson MD - 03/27/2014 11:05 AM CDT DATE OF ADMISSION: 03/21/2014. DATE OF DISCHARGE: 03/27/2014. DISCHARGE DIAGNOSES: 1. Recurrent transient ischemic attacks. 2. Hypertension. 3. Vitamin B12 deficiency. 4. Hyperlipidemia. 5. Restless legs syndrome. 6. Peripheral neuropathy. DISCHARGE MEDICATIONS: 1. Warfarin 10 mg daily. INR goal of 2-3. The patient has been taken off of aspirin, Plavix and warfarin is being substituted for those medications. 2. Amlodipine 5 mg daily. 3. Vitamin B12 1000 mcg daily. 4. Atenolol 50 mg every morning. 5. Gabapentin 600 mg at bedtime. 6. Magnesium oxide 500 mg every morning. 7. Lyrica 75 mg at bedtime. 8. Ropinirole 1 mg at bedtime. 9. Vitamin B2 200 mg twice a day. 10. Gabapentin 300 mg every morning. 11. Lisinopril 30 mg twice a day. 12. Zocor 20 mg at bedtime. 13. Folic acid, vitamin B6 and B12, combination 1 tab daily. 14. Multivitamin 1 tab daily. HOSPITAL COURSE: Marlene Mccall is a 63-year-old gentleman with a previous history of left cerebellar stroke, hypertension, hyperlipidemia who presented on 03/21/2014 with complaints of acute right-sided weakness, aphasia, transient partial vision loss in his left eye. The patient had been on aspirin and Plavix prior to admission. The patient was seen by Neurology Service and recommendation was anticoagulation with heparin and Coumadin and discontinuation of aspirin and Plavix. Cardiology Service was consulted as the patient was bradycardiac and there were some concerns that his symptoms may be due to hypoperfusion. Atenolol was discontinued initially and Cardiology felt that it was not a situation of h ypoperfusion causing his symptoms. They did, however, place and implantable loop recorder which willbe followed further as an outpatient. At this time the patient is in stable condition. Denies any new acute symptoms on discharge day. DISCHARGE EXAM: GENERAL: The patient is awake, alert and oriented x3. LUNGS: Clear to auscultation. CARDIOVASCULAR: Regular rate and rhythm, S1, S2. ABDOMEN: Bowel sounds positive, nontender, nondistended. NEUROLOGIC: Cranial nerves II-XII grossly intact. DISCHARGE INSTRUCTIONS: The patient should follow up with his own primary care physician within 7 days. Follow up with Cardiology Service to review loop recorder as previously planned. INR will be managed in Coumadin Clinic with critical care technician assisting with set up of Coumadin monitoring. TOTAL TIME SPENT: 30 minutes spent on discharge planning and cares. BRANDON HENDERSON MD MT: #[id number] Name: MARLENE MCCALL Account: [id number] : 1950 Admit Date: Discharge Date: Document: [id number] documented in this encounter Discharge Instructions Discharge InstructionsDiana Chaudhari RN - 03/27/2014 12:12 PM CDT Your risk factors for stroke or TIA (transient ischemic attack): Your Risk Factors Your Results Normal Ranges High blood pressure BP Readings from Last 1 Encounters: 03/27/14 171/85 Less than 120/80 Cholesterol Total CHOL 117 03/21/2014 Less than 150 Triglycerides TRIG 116 03/21/2014 Less than 150 LDL LDL 56 03/21/2014 Less than 70 HDL HDL 38 03/21/2014 Greater than 40 (men) Greater than 50 (women) Diabetes Recent Labs Lab 03/25/14 0628 GLC 119* Fasting blood glucose 70-100 Smoking/tobacco use Quit smoking and tobacco Overweight Lose 1-2 pounds a week Lack of exercise 30 minutes moderate activity each day Other risk factors include carotid (neck) artery disease, atrial fibrillation and stress. You may beon new medicine to treat high blood pressure, cholesterol, diabetes or atrial fibrillation. Understanding Stroke Booklet given to patient. Please refer to booklet for further information. Stroke warning signs and symptoms - CALL 911 right away for: - Sudden numbness or weakness in the face, arm or leg (often on one side of the body). - Sudden confusion or trouble understanding what is going on. - Sudden blurred or decreased vision in one or both eyes. - Sudden trouble speaking, loss of balance, dizziness or problems with coordination. - Sudden, severe headache for no reason. - Fainting or seizures. - Symptoms may go away then come back suddenly. documented in this encounter Medications at Time [...] tabletIndications: HTN mg) by mouth daily (hypertension) ATENOLOL PO Take 100 mg by 0 [...] mg by 0 015 mouth every morning Multiple Vitamin Take 1 tablet by 0 (MULTI-VITAMIN) per tablet mouth daily. Pregabalin (LYRICA PO) Take 75 mg by mouth 0 02/28/2016 At Bedtime Riboflavin (VITAMIN B-2 Take 200 mg by 0 06/22/2018 PO) mouth 2 times daily warfarin (COUMADIN) 10 MG Take 1 tablet (10 30 tablet 0 02/201404/11/2014 tabletIndications: TIA on mg) by mouth daily medication documented as of this encounter Progress Notes Theresa Jolly RN - 03/27/2014 2:17 PM CDT Appt for INR check tomorrow was changed from [employer] to the patients Primary clinic-[facility]. Patient has already left hospital, so I called a spoke to him re this change. Fracisco Fox MD - 03/27/2014 8:01 AM CDT [facility] [place] [facility] Daily Note Admission Date:03/21/2014 Assessment and Plan: #1. Recurrent TIAs --Currently on Heparin and Coumadin -----Discharge with therapeutic INR --Failed aspirin/plavix --Severe dilation of left atrium is frequently seen in atrial fibrillation ----Reveal LINQ is in place --Previous cerebellar stroke in 2001 was likely cardioembolic #2. Decreased TSH --normal T4 and T3 - no clear evidence of hyperthyroidism --Pending Vitamin D -- A1C - 02/28 --B12 -borderline low, replace with sublingual form Interval History: No further spells. No weakness, No numbness. No atrial fibrillation on telemetry. Loop recorder is in place Review of Systems: The Review of Systems is negative other than noted in the HPI Medications: Scheduled Meds: ??? cyanocobalamin 1,000 mcg Sublingual Daily ??? lisinopril 30 mg Oral BID ??? atenolol 25 mg Oral QPM ??? atenolol 50 mg Oral QAM ??? sodium chloride (PF) 3 mL Intravenous Q8H ??? gabapentin (NEURONTIN) capsule 300 mg 300 mg Oral QAM ??? gabapentin (NEURONTIN) tablet 600 mg 600 mg Oral At Bedtime ??? magnesium oxide 400 mg Oral QAM ??? pregabalin (LYRICA) capsule 75 mg 75 mg Oral At Bedtime ??? rOPINIRole (REQUIP) tablet 1 mg 1 mg Oral At Bedtime ??? simvastatin 20 mg Oral At Bedtime ??? sodium chloride (PF) 3 mL Intravenous Q8H PRN Meds: sodium chloride (PF), acetaminophen-codeine, naloxone, HOLD MEDICATION, HOLD MEDICATION, HOLD MEDICATION, Warfarin Therapy Reminder, - MEDICATION INSTRUCTIONS -, labetalol, hydrALAZINE, Lidocaine, lidocaine 4 %, sodium chloride (PF), naloxone, senna-docusate, polyethylene glycol, bisacodyl, ondansetron, ondansetron, prochlorperazine, prochlorperazine, prochlorperazine, acetaminophen, acetaminophen Physical Exam: Vitals: Blood pressure 175/90, pulse 54, temperature 97.8 ??F (36.6 ??C), temperature source Oral, resp. rate 16, height 1.854 m (6' 0.99), weight 120 kg (264 lb 8.8 oz), SpO2 98 %. Vital Signs with Ranges: Temp: [97.8 ??F (36.6 ??C)-98.8 ??F (37.1 ??C)] 97.8 ??F (36.6 ??C) Pulse: [54-55] 54 Heart Rate: [51-61] 51 Resp: [16-18] 16 BP: (146-182)/(73-90) 175/90 mmHg SpO2: [95 %-98 %] 98 % General Appearance: No acute distress Neuro: Mental Status Exam: Awake, alert, oriented X3. Speech and language are intact. Mental status is normal Cranial Nerves: Pupils 3 mm, reactive. EOMI. Face sensation is normal. Face is symmetric.Tongue anduvula are midline. Other CN are normal Motor: 5/5 X 4. Tone and bulk are normal Reflexes: Normal DTR.Toes downgoing. Sensory: Normal to PP, LT, vibration and PAU Coordination: Intact ecefcu-zd-[id number] and jsm-pu-ngexaj tests Gait: No significant difficulties Cardiovascular: Regular rate and rhythm, no m/r/g Lungs: Clear to auscultation Abdomen: Soft, not tender, not destended Extremities: No clubbing, no cyanosis, no edema Data: ROUTINE IP LABS (Last 3results) CBC RESULTS: Recent Labs Lab 03/27/14 0747 03/24/14 0700 03/21/14 1952 WBC 5.3 5.0 6.0 RBC 4.76 4.93 4.54 HGB 14.4 14.9 13.8 HCT 42.3 43.7 40.4 PLT 190 197 175 Basic Metabolic Panel: Recent Labs Lab 03/25/14 0628 03/24/14 0700 03/21/14 1404 NA 144 145* 142 POTASSIUM 4.7 4.7 4.5 CHLORIDE 109 106 105 CO2 27 29 28 BUN 13 10 18 CR 1.03 1.04 1.21 GLC 119* 104* 116* JADEN 8.3* 9.2 9.0 INR: Recent Labs Lab 03/26/14 0745 03/25/14 0628 03/24/14 0700 INR 1.72* 1.14 1.01 Lipid Profile: Recent Labs Lab Test 03/21/14 1404 03/28/08 CHOL 117 174@ HDL 38* 53@ LDL 56 97@ TRIG 116 118@ CHOLHDLRATIO 3.1 -- TSH: Recent Labs Lab 03/21/14 1404 TSH 0.36* TTE: Left ventricular systolic function is normal. The visual ejection fraction is estimated at 60-65%. Acontrast injection (Bubble Study) was performed that was mildly positive. The left atrium is severely dilated.Right atrial size is normal.There is no color Doppler evidence of an atrial shunt. A contrast injection (Bubble Study) was performed that was mildly positive.A patent foramen ovale is suspected. LE Doppler Negative bilateral lower extremity venous Doppler IMAGING: All imaging studies were reviewed personally CTA head/neck: 1. Calcified atherosclerotic plaque at the origins of the left vertebral and bilateral internal carotid arteries that does not result in any significant narrowing. Otherwise, normal neck CTA. No changefrom the comparison study. 2. Calcified atherosclerotic plaque of the distal left vertebral artery and distal internal carotid arteries on both sides that result in at least moderate narrowing of the distal left vertebral arteryand mild narrowing of the distal internal carotid arteries on both sides again noted without change.Otherwise, normal [place] CTA. No change from the comparison study. MRI brain: 1. No acute infarcts are identified. 2. Chronic left inferior cervical or infarct. Krzysztof, Nadine Vicente MD - 03/26/2014 1:00 PM CDT [facility] Hospitalist Progress Note Nadine Cool MD, pager: [phone] 03/26/2014 Interval History: Patient is doing ok - he was happy to see his INR is increasing today. He is interested in more education regarding his physical restrictions, dietary restrictions and information regarding new meds again today. He and have been trying to figure out follow up plans. He has no new symptoms, no increased anxiety, no dyspnea. RN: No other events. Assessment and Plan: Marlene Mccall is a 63 year old male with history of left cerebellar stroke, HTN, HLD in 2002 who presented on 03/21/2014 with acute right sided weakness and aphasia, now resolved but now with recurring transient partial loss of vision in the left eye and history of recurring episodes of imbalance and right sided weakness/numbness during the last week. He was on plavix and ASA and head CTA multiple known, unchanged intracranial atherosclerotic plaque moderate narrowing of the distal left vertebral artery and mild narrowing of the distal internal carotid arteries of both sides. Recurrent TIA's on ASA/plavix with multiple intracranial atherosclerotic plaques. MRI without evidence of acute inarct, known chronic left cerebellar infarct. Neurology has recommended replacement of asa/plavix with warfarin. Currently on heparin bridge for INR goal 2-3. Cardiology was consulted for qu estion if hypoperfusion could be contributing to symtpoms, on review of tele EP did not feel this was the etiology. -- Loop recorder in place, procedure tolerated well. Will follow up with cardiology -- Continue heparin bridge and warfarin, INR today remains subtherapeutic. DC when INR at goal. 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 -- Continue Statin. -- Neuro has added additional studies: T3 - normal, Vit D - pending, B12 - low normal. A1c - unremarkable at 5.9 Hyperlipemia CHOL 117, HDL 38, LDL 56 03/21/2014, TRIG 116 03/21/2014 -- continue MOTOR ANALYST simvastatin HTN BP 140-170/70-90s. -- Resumed atenolol and lisinopril BP 140/70 this AM, continue home meds and follow up with PCP if adjustment needed Restless Leg Syndrome -- Continue Requip, lyrica DVT prophy -- On heparin, warfarin Dispo -- pending further recs from neurology will keep inpatient for bridging with heparin until INR >2. Code: Full Physical Exam: Blood pressure 142/96, pulse 55, temperature 98.1 ??F (36.7 ??C), temperature source Oral, resp. rate 16, height 1.854 m (6' 0.99), weight 120.2 kg (264 lb 15.9 oz), SpO2 95 %. Filed Vitals: 03/25/14 0005 03/25/14 0500 03/26/14 0515 Weight: 120.3 kg (265 lb 3.4 oz) 119.8 kg (264 lb 1.8 oz) 120.2 kg (264 lb 15.9 oz) Vital Signs with Ranges Temp: [97.5 ??F (36.4 ??C)-98.2 ??F (36.8 ??C)] 98.1 ??F (36.7 ??C) Pulse: [55] 55 Heart Rate: [56-70] 56 Resp: [16-20] 16 BP: (142-182)/(74-96) 142/96 mmHg SpO2: [93 %-98 %] 95 % I/O's Last 24 hours I/O last 3 completed shifts: In: 1033 [P.O.:480; I.V.:553] Out: - Constitutional: Awake and alert, pleasant and cooperative. No apparent distress Lungs: No increased work of breathing throughout exam. Bilaterally clear to auscultation. Cardiovascular: Regular rhythm, normal rate. S1 S2 without murmur. No JVD. Peripheral perfusion 2+ radial and post tibial arteries bilaterally Abdomen: Bowel sounds present, soft and non-tender. No masses Skin: Warm and dry. L chest dressing c/d/i Neuro: Oriented x3. Mild LUE paresthesia, as per baseline, strength symmetric 5/5 bilateral UE and LE Other: Medications: ??? warfarin 10 mg Oral ONCE at 18:00 ??? cyanocobalamin 1,000 mcg Sublingual Daily ??? lisinopril 30 mg Oral BID ??? atenolol 25 mg Oral QPM ??? atenolol 50 mg Oral QAM ??? sodium chloride (PF) 3 mL Intravenous Q8H ??? gabapentin (NEURONTIN) capsule 300 mg 300 mg Oral QAM ??? gabapentin (NEURONTIN) tablet 600 mg 600 mg Oral At Bedtime ??? magnesium oxide 400 mg Oral QAM ??? pregabalin (LYRICA) capsule 75 mg 75 mg Oral At Bedtime ??? rOPINIRole (REQUIP) tablet 1 mg 1 mg Oral At Bedtime ??? simvastatin 20 mg Oral At Bedtime ??? sodium chloride (PF) 3 mL Intravenous Q8H PRN Meds: sodium chloride (PF), acetaminophen-codeine, naloxone, HOLD MEDICATION, HOLD MEDICATION, HOLD MEDICATION, Warfarin Therapy Reminder, - MEDICATION INSTRUCTIONS -, labetalol, hydrALAZINE, Lidocaine, lidocaine 4 %, sodium chloride (PF), naloxone, senna-docusate, polyethylene glycol, bisacodyl, ondansetron, ondansetron, prochlorperazine, prochlorperazine, prochlorperazine, acetaminophen, acetaminophen Data: All new lab and imaging data was reviewed. Recent Labs Lab Test 03/26/1445 03/25/1462703/24/1469903/21/14195103/21/14 1404 WBC -- -- 5.0 -- 6.0 6.3 HGB -- -- 14.9 -- 13.8 14.0 MCV -- -- 89 -- 89 89 PLT -- -- 197 -- 175 184 INR 1.72* 1.14 1.01 < > -- 0.97 < > = values in this interval not displayed. Recent Labs Lab Test 03/25/1462703/24/1469903/21/14 1404 NA 144 145* 142 POTASSIUM 4.7 4.7 4.5 CHLORIDE 109 106 105 CO2 27 29 28 BUN 13 10 18 CR 1.03 1.04 1.21 ANIONGAP 8 10 9 JADEN 8.3* 9.2 9.0 GLC 119* 104* 116* Recent Labs Lab Test 03/21/14 1404 12/14/11 1159 TROPI <0.012 <0.012 Fracisco Fox MD - 03/26/2014 11:04 AM CDT [facility] [place] [facility] Daily Note Admission Date:03/21/2014 Assessment and Plan: #1. Recurrent TIAs --Currently on Heparin and Coumadin -----Discharge with therapeutic INR --Failed aspirin/plavix --Severe dilation of left atrium is frequently seen in atrial fibrillation ----Reveal LINQ is in place --Previous cerebellar stroke in 2001 was likely cardioembolic #2. Decreased TSH --normal T4 and T3 - no clear evidence of hyperthyroidism --Pending Vitamin D, -- A1C - 02/28, --B12 -borderline low, replace with sublingual form Interval History: No further spells. No weakness, No numbness. No atrial fibrillation on teletetry Loop recorder is inplace Review of Systems: The Review of Systems is negative other than noted in the HPI Medications: Scheduled Meds: ??? warfarin 10 mg Oral ONCE at 18:00 ??? lisinopril 30 mg Oral BID ??? atenolol 25 mg Oral QPM ??? atenolol 50 mg Oral QAM ??? sodium chloride (PF) 3 mL Intravenous Q8H ??? gabapentin (NEURONTIN) capsule 300 mg 300 mg Oral QAM ??? gabapentin (NEURONTIN) tablet 600 mg 600 mg Oral At Bedtime ??? magnesium oxide 400 mg Oral QAM ??? pregabalin (LYRICA) capsule 75 mg 75 mg Oral At Bedtime ??? rOPINIRole (REQUIP) tablet 1 mg 1 mg Oral At Bedtime ??? simvastatin 20 mg Oral At Bedtime ??? sodium chloride (PF) 3 mL Intravenous Q8H PRN Meds: sodium chloride (PF), acetaminophen-codeine, naloxone, HOLD MEDICATION, HOLD MEDICATION, HOLD MEDICATION, Warfarin Therapy Reminder, - MEDICATION INSTRUCTIONS -, labetalol, hydrALAZINE, Lidocaine, lidocaine 4 %, sodium chloride (PF), naloxone, senna-docusate, polyethylene glycol, bisacodyl, ondansetron, ondansetron, prochlorperazine, prochlorperazine, prochlorperazine, acetaminophen, acetaminophen Physical Exam: Vitals: Blood pressure 142/96, pulse 48, temperature 97.8 ??F (36.6 ??C), temperature source Oral, resp. rate 16, height 1.854 m (6' 0.99), weight 120.2 kg (264 lb 15.9 oz), SpO2 96 %. Vital Signs with Ranges: Temp: [97.5 ??F (36.4 ??C)-98.2 ??F (36.8 ??C)] 97.8 ??F (36.6 ??C) Heart Rate: [56-70] 56 Resp: [16-20] 16 BP: (142-182)/(74-97) 142/96 mmHg SpO2: [93 %-98 %] 96 % General Appearance: No acute distress Neuro: Mental Status Exam: Awake, alert, oriented X3. Speech and language are intact. Mental status is normal Cranial Nerves: Pupils 3 mm, reactive. EOMI. Face sensation is normal. Face is symmetric.Tongue anduvula are midline. Other CN are normal Motor: 5/5 X 4. Tone and bulk are normal Reflexes: Normal DTR.Toes downgoing. Sensory: Normal to PP, LT, vibration and PAU Coordination: Intact fxsqxn-ew-rqjd and zsz-tm-hkwyhf tests Gait: No significant difficulties Cardiovascular: Regular rate and rhythm, no m/r/g Lungs: Clear to auscultation Abdomen: Soft, not tender, not destended Extremities: No clubbing, no cyanosis, no edema Data: ROUTINE IP LABS (Last 3results) CBC RESULTS: Recent Labs Lab 03/24/14 0700 03/21/14 1952 03/21/14 1404 WBC 5.0 6.0 6.3 RBC 4.93 4.54 4.62 HGB 14.9 13.8 14.0 HCT 43.7 40.4 41.0 PLT 197 175 184 Basic Metabolic Panel: Recent Labs Lab 03/25/14 0628 03/24/14 0700 03/21/14 1404 NA 144 145* 142 POTASSIUM 4.7 4.7 4.5 CHLORIDE 109 106 105 CO2 27 29 28 BUN 13 10 18 CR 1.03 1.04 1.21 GLC 119* 104* 116* JADEN 8.3* 9.2 9.0 INR: Recent Labs Lab 03/26/14 0745 03/25/14 0628 03/24/14 0700 INR 1.72* 1.14 1.01 Lipid Profile: Recent Labs Lab Test 03/21/14 1404 03/28/08 CHOL 117 174@ HDL 38* 53@ LDL 56 97@ TRIG 116 118@ CHOLHDLRATIO 3.1 -- TSH: Recent Labs Lab 03/21/14 1404 TSH 0.36* TTE: Left ventricular systolic function is normal. The visual ejection fraction is estimated at 60-65%. Acontrast injection (Bubble Study) was performed that was mildly positive. The left atrium is severely dilated.Right atrial size is normal.There is no color Doppler evidence of an atrial shunt. A contrast injection (Bubble Study) was performed that was mildly positive.A patent foramen ovale is suspected. LE Doppler Negative bilateral lower extremity venous Doppler IMAGING: All imaging studies were reviewed personally CTA head/neck: 1. Calcified atherosclerotic plaque at the origins of the left vertebral and bilateral internal carotid arteries that does not result in any significant narrowing. Otherwise, normal neck CTA. No changefrom the comparison study. 2. Calcified atherosclerotic plaque of the distal left vertebral artery and distal internal carotid arteries on both sides that result in at least moderate narrowing of the distal left vertebral arteryand mild narrowing of the distal internal carotid arteries on both sides again noted without change.Otherwise, normal [place] CTA. No change from the comparison study. MRI brain: 1. No acute infarcts are identified. 2. Chronic left inferior cervical or infarct. Naomie Boyd MD - 03/25/2014 4:09 PM CDT Loop recorder implant. No complications. Krzysztof, Nadine Vicente MD - 03/25/2014 1:23 PM CDT [facility] Hospitalist Progress Note Nadine Cool MD, MD pager: [phone] 03/25/2014 Interval History: Patient is doing ok - he met Dr Fox this morning and learned about dietary restrictions and has agreed to loop recorder for med planning in future. He has no new symptoms, no increased anxiety, no dyspnea. RN: No other events. Assessment and Plan: Marlene Mccall is a 63 year old male with history of left cerebellar stroke, HTN, HLD in 2002 who presented on 03/21/2014 with acute right sided weakness and aphasia, now resolved but now with recurring transient partial loss of vision in the left eye and history of recurring episodes of imbalance and right sided weakness/numbness during the last week. He was on plavix and ASA and head CTA multiple known, unchanged intracranial atherosclerotic plaque moderate narrowing of the distal left vertebral artery and mild narrowing of the distal internal carotid arteries of both sides. Recurrent TIA's on ASA/plavix with multiple intracranial atherosclerotic plaques. MRI without evidence of acute inarct, known chronic left cerebellar infarct. Neurology has recommended replacement of asa/plavix with warfarin. Currently on heparin bridge for INR goal 2-3. Cardiology was consulted for qu estion if hypoperfusion could be contributing to symtpoms, on review of tele EP did not feel this was the etiology. -- Awaiting placement of loop recorder, has agreed with plans today. 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 -- Continue Statin. -- Neuro has added additional studies: T3, Vit D, B12. A1c ordered and unremarkable at 5.9 Hyperlipemia CHOL 117, HDL 38, LDL 56 03/21/2014, TRIG 116 03/21/2014 -- continue MOTOR ANALYST simvastatin HTN BP 140-170/70-90s. -- Holding atenolol and lisinopril for permissive HTN in context of recurring sx, last event 03/22. -- Resume meds with holding parameters -- PRN meds ordered for BP 180/110. Restless Leg Syndrome -- Continue Requip, lyrica DVT prophy -- On heparin, warfarin Dispo -- pending further recs from neurology will keep inpatient for bridging with heparin until INR >2. Code: Full Physical Exam: Blood pressure 176/97, pulse 48, temperature 97.7 ??F (36.5 ??C), temperature source Oral, resp. rate 18, height 1.854 m (6' 0.99), weight 119.8 kg (264 lb 1.8 oz), SpO2 98 %. Filed Vitals: 03/24/14 0437 03/25/14 0005 03/25/14 0500 Weight: 119.4 kg (263 lb 3.7 oz) 120.3 kg (265 lb 3.4 oz) 119.8 kg (264 lb 1.8 oz) Vital Signs with Ranges Temp: [97.6 ??F (36.4 ??C)-98.4 ??F (36.9 ??C)] 97.7 ??F (36.5 ??C) Heart Rate: [59-77] 59 Resp: [16-18] 18 BP: (135-176)/(55-97) 176/97 mmHg SpO2: [95 %-98 %] 98 % I/O's Last 24 hours I/O last 3 completed shifts: In: 1480 [P.O.:680; I.V.:800] Out: - Constitutional: Awake and alert, pleasant and cooperative. No apparent distress Lungs: No increased work of breathing throughout exam. Bilaterally clear to auscultation. Cardiovascular: Regular rhythm, normal rate. S1 S2 without murmur. No JVD. Peripheral perfusion 2+ radial and post tibial arteries bilaterally Abdomen: Bowel sounds present, soft and non-tender. No masses Skin: Warm and dry. No new rashes, lesions or abrasions. Neuro: Oriented x3. Mild LUE paresthesia, as per baseline, strength symmetric 5/5 bilateral UE and LE Other: Medications: ??? warfarin 12.5 mg Oral ONCE at 18:00 ??? gabapentin (NEURONTIN) capsule 300 mg 300 mg Oral QAM ??? gabapentin (NEURONTIN) tablet 600 mg 600 mg Oral At Bedtime ??? magnesium oxide 400 mg Oral QAM ??? pregabalin (LYRICA) capsule 75 mg 75 mg Oral At Bedtime ??? rOPINIRole (REQUIP) tablet 1 mg 1 mg Oral At Bedtime ??? simvastatin 20 mg Oral At Bedtime ??? sodium chloride (PF) 3 mL Intravenous Q8H PRN Meds: Warfarin Therapy Reminder, - MEDICATION INSTRUCTIONS -, labetalol, hydrALAZINE, Lidocaine,lidocaine 4 %, sodium chloride (PF), naloxone, senna- docusate, polyethylene glycol, bisacodyl, ondansetron, ondansetron, prochlorperazine, prochlorperazine, prochlorperazine, acetaminophen, acetaminophen Data: All new lab and imaging data was reviewed. Recent Labs Lab Test 03/25/14 0603/24/14 0700 03/23/14 0823 03/21/14195103/21/14 1404 WBC -- 5.0 -- -- 6.0 6.3 HGB -- 14.9 -- -- 13.8 14.0 MCV -- 89 -- -- 89 89 PLT -- 197 -- -- 175 184 INR 1.14 1.01 0.93 < > -- 0.97 < > = values in this interval not displayed. Recent Labs Lab Test 03/25/1462703/24/14 0700 03/21/14 1404 NA 144 145* 142 POTASSIUM 4.7 4.7 4.5 CHLORIDE 109 106 105 CO2 27 29 28 BUN 13 10 18 CR 1.03 1.04 1.21 ANIONGAP 8 10 9 JADEN 8.3* 9.2 9.0 GLC 119* 104* 116* Recent Labs Lab Test 03/21/14 1404 12/14/11 1159 TROPI <0.012 <0.012 Fracisco Fox MD - 03/25/2014 9:06 AM CDT [facility] [place] [facility] Daily Note Admission Date:03/21/2014 Assessment and Plan: #1. Recurrent TIAs --Currently on Heparin and Coumadin --Failed aspirin/plavix --Severe dilation of left atrium is frequently seen in atrial fibrillation ----Will recommend Loop recorder. 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 Mild hyperthyroidism --Increases risk of atrial fibrillation --Will get free T3, Vitamin D, A1C, B12 Interval History: No further spells. No weakness, No numbness. No atrial fibrillation on teletetry Review of Systems: The Review of Systems is negative other than noted in the HPI Medications: Scheduled Meds: ??? warfarin 12.5 mg Oral ONCE at 18:00 ??? gabapentin (NEURONTIN) capsule 300 mg 300 mg Oral QAM ??? gabapentin (NEURONTIN) tablet 600 mg 600 mg Oral At Bedtime ??? magnesium oxide 400 mg Oral QAM ??? pregabalin (LYRICA) capsule 75 mg 75 mg Oral At Bedtime ??? rOPINIRole (REQUIP) tablet 1 mg 1 mg Oral At Bedtime ??? simvastatin 20 mg Oral At Bedtime ??? sodium chloride (PF) 3 mL Intravenous Q8H PRN Meds: Warfarin Therapy Reminder, - MEDICATION INSTRUCTIONS -, labetalol, hydrALAZINE, Lidocaine,lidocaine 4 %, sodium chloride (PF), naloxone, senna- docusate, polyethylene glycol, bisacodyl, ondansetron, ondansetron, prochlorperazine, prochlorperazine, prochlorperazine, acetaminophen, acetaminophen Physical Exam: Vitals: Blood pressure 159/80, pulse 48, temperature 97.8 ??F (36.6 ??C), temperature source Oral, resp. rate 16, height 1.854 m (6' 0.99), weight 119.8 kg (264 lb 1.8 oz), SpO2 97 %. Vital Signs with Ranges: Temp: [97.6 ??F (36.4 ??C)-98.5 ??F (36.9 ??C)] 97.8 ??F (36.6 ??C) Heart Rate: [54-77] 59 Resp: [16-18] 16 BP: (135-159)/(55-86) 159/80 mmHg SpO2: [95 %-98 %] 97 % General Appearance: No acute distress Neuro: Mental Status Exam: Awake, alert, oriented X3. Speech and language are intact. Mental status is normal Cranial Nerves: Pupils 3 mm, reactive. EOMI. Face sensation is normal. Face is symmetric.Tongue anduvula are midline. Other CN are normal Motor: 5/5 X 4. Tone and bulk are normal Reflexes: Normal DTR.Toes downgoing. Sensory: Normal to PP, LT, vibration and PAU Coordination: Intact ippbwy-bf-[id number] and tst-ki-afkzwv tests Gait: No significant difficulties Cardiovascular: Regular rate and rhythm, no m/r/g Lungs: Clear to auscultation Abdomen: Soft, not tender, not destended Extremities: No clubbing, no cyanosis, no edema Data: ROUTINE IP LABS (Last 3results) CBC RESULTS: Recent Labs Lab 03/24/1469903/21/14195103/21/14 1404 WBC 5.0 6.0 6.3 RBC 4.93 4.54 4.62 HGB 14.9 13.8 14.0 HCT 43.7 40.4 41.0 PLT 197 175 184 Basic Metabolic Panel: Recent Labs Lab 03/25/1462703/24/14 0703/21/14 1404 NA 144 145* 142 POTASSIUM 4.7 4.7 4.5 CHLORIDE 109 106 105 CO2 27 29 28 BUN 13 10 18 CR 1.03 1.04 1.21 GLC 119* 104* 116* JADEN 8.3* 9.2 9.0 INR: Recent Labs Lab 03/25/14 0603/24/14 0703/23/14 0823 INR 1.14 1.01 0.93 Lipid Profile: Recent Labs Lab Test 03/21/14 1404 03/28/08 CHOL 117 174@ HDL 38* 53@ LDL 56 97@ TRIG 116 118@ CHOLHDLRATIO 3.1 -- TSH: Recent Labs Lab 03/21/14 1404 TSH 0.36* TTE: Left ventricular systolic function is normal. The visual ejection fraction is estimated at 60-65%. Acontrast injection (Bubble Study) was performed that was mildly positive. The left atrium is severely dilated.Right atrial size is normal.There is no color Doppler evidence of an atrial shunt. A contrast injection (Bubble Study) was performed that was mildly positive.A patent foramen ovale is suspected. LE Doppler Negative bilateral lower extremity venous Doppler IMAGING: All imaging studies were reviewed personally CTA head/neck: 1. Calcified atherosclerotic plaque at the origins of the left vertebral and bilateral internal carotid arteries that does not result in any significant narrowing. Otherwise, normal neck CTA. No changefrom the comparison study. 2. Calcified atherosclerotic plaque of the distal left vertebral artery and distal internal carotid arteries on both sides that result in at least moderate narrowing of the distal left vertebral arteryand mild narrowing of the distal internal carotid arteries on both sides again noted without change.Otherwise, normal [place] CTA. No change from the comparison study. MRI brain: 1. No acute infarcts are identified. 2. Chronic left inferior cervical or infarct. Krzysztof, Nadine Vicente MD - 03/24/2014 11:14 AM CDT [facility] Hospitalist Progress Note Nadine Cool MD, MD pager: [phone] 03/24/2014 Interval History: Patient is doing ok - he reports having an ongoing anxiety sensation described as warmth and ill described chest symptoms not tightness. He spoke at length with pharmacy regarding side effects of warfarin. He has no other concerns at this time, just generally concerned about whats to come. RN: No other events. Assessment and Plan: Marlene Mccall is a 63 year old male with history of left cerebellar stroke, HTN, HLD in 2003 who presents on 03/21/2014 with acute right sided weakness and aphasia, now resolved but now with recurring transient partial loss of vision in the left eye and history of recurring episodes of imbalance and right sided weakness/numbness during the last week. He was on plavix and ASA and head CTA multiple known, unchanged intracranial atherosclerotic plaque moderate narrowing of the distal left vertebral artery and mild narrowing of the distal internal carotid arteries of both sides. Recurrent TIA's on ASA/plavix with multiple intracranial atherosclerotic plaques. MRI without evidence of acute inarct, known chronic left cerebellar infarct. Neurology has recommended replacement of asa/plavix with warfarin. Currently on heparin bridge for INR goal 2-3. Cardiology was consulted for qu estion if hypoperfusion could be contributing to symtpoms, on review of tele EP did not feel this was the etiology. -- Further discussion of a loop recorder as offered by cardiology. As currently being treated with full anticoagulation and is rate controlled on tele thus far will defer loop on discharge. -- Discussed with neurology, will continue heparin bridge for INR goal versus transition to LMWH in future pending continued rise of INR. 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 Hyperlipemia CHOL 117, HDL 38, LDL 56 03/21/2014, TRIG 116 03/21/2014 -- continue MOTOR ANALYST simvastatin HTN -- Holding atenolol and lisinopril for permissive HTN in context of recurring sx. -- PRN meds ordered for BP 200/110. Restless Leg Syndrome -- Continue Requip, lyrica DVT prophy -- On heparin, warfarin Dispo -- pending further recs from neurology will keep inpatient for bridging with heparin until INR >2. Code: Full Physical Exam: Blood pressure 149/80, pulse 48, temperature 98.7 ??F (37.1 ??C), temperature source Oral, resp. rate 18, height 1.854 m (6' 0.99), weight 119.4 kg (263 lb 3.7 oz), SpO2 96 %. Filed Vitals: 03/22/14 0403 03/23/14 0600 03/24/14 0437 Weight: 118.797 kg (261 lb 14.4 oz) 117.8 kg (259 lb 11.2 oz) 119.4 kg (263 lb 3.7 oz) Vital Signs with Ranges Temp: [97.5 ??F (36.4 ??C)-98.7 ??F (37.1 ??C)] 98.7 ??F (37.1 ??C) Heart Rate: [50-68] 56 Resp: [16-18] 18 BP: (149-176)/(73-89) 149/80 mmHg SpO2: [95 %-100 %] 96 % I/O's Last 24 hours I/O last 3 completed shifts: In: 1766 [P.O.:1290; I.V.:476] Out: - Constitutional: Awake and alert, pleasant and cooperative. No apparent distress Lungs: No increased work of breathing throughout exam. Bilaterally clear to auscultation. Cardiovascular: Regular rhythm, normal rate. S1 S2 without murmur. No JVD. Peripheral perfusion 2+ radial and post tibial arteries bilaterally Abdomen: Bowel sounds present, soft and non-tender. No masses Skin: Warm and dry. No new rashes, lesions or abrasions. Neuro: Oriented x3. Mild LUE paresthesia, as per baseline, strength symmetric 5/5 bilateral UE and LE Other: Medications: ??? warfarin 10 mg Oral ONCE at 18:00 ??? gabapentin (NEURONTIN) capsule 300 mg 300 mg Oral QAM ??? gabapentin (NEURONTIN) tablet 600 mg 600 mg Oral At Bedtime ??? magnesium oxide 400 mg Oral QAM ??? pregabalin (LYRICA) capsule 75 mg 75 mg Oral At Bedtime ??? rOPINIRole (REQUIP) tablet 1 mg 1 mg Oral At Bedtime ??? simvastatin 20 mg Oral At Bedtime ??? sodium chloride (PF) 3 mL Intravenous Q8H PRN Meds: Warfarin Therapy Reminder, - MEDICATION INSTRUCTIONS -, labetalol, hydrALAZINE, Lidocaine,lidocaine 4 %, sodium chloride (PF), naloxone, senna- docusate, polyethylene glycol, bisacodyl, ondansetron, ondansetron, prochlorperazine, prochlorperazine, prochlorperazine, acetaminophen, acetaminophen Data: All new lab and imaging data was reviewed. Recent Labs Lab Test 03/24/14 0700 03/23/14 0823 03/22/14 0827 03/21/14 19503/21/14 1404 WBC 5.0 -- -- -- 6.0 6.3 HGB 14.9 -- -- -- 13.8 14.0 MCV 89 -- -- -- 89 89 PLT 197 -- -- -- 175 184 INR 1.01 0.93 0.91 < > -- 0.97 < > = values in this interval not displayed. Recent Labs Lab Test 03/24/14 0700 03/21/14 1404 11/04/13 0920 05/26/12 1340 NA 145* 142 -- 141 POTASSIUM 4.7 4.5 -- 4.1 CHLORIDE 106 105 -- 105 CO2 29 28 -- 25 BUN 10 18 -- 24 CR 1.04 1.21 -- 1.44* ANIONGAP 10 9 -- 11 JADEN 9.2 9.0 -- 8.7 GLC 104* 116* 99 134* Recent Labs Lab Test 03/21/14 1404 12/14/11 1159 TROPI <0.012 <0.012 Demetrius Greene MD - 03/24/2014 10:51 AM CDT Neurology - patient seen, discussed with , chart reviewed. He remains Sx free on both heparin and coumadin though INR still sub- therapeutic. Discussed his TIA sx at length which do have a migraine flavor to them with the hemianoptic field sx followed by a headache. The newer sx of the right sided paresis and aphasia however suggest more stoke as eitiology. Plan - continue to convert to therapeutic coumadin dosing and discharge to OP follow up with our partner, Dr. Milligan when INR >2.0. Conor Ball MD - 03/23/2014 11:56 AM CDT Recurrent CVA/TIA despite being on dual antiplts agents. Pt has chronic sinus nnamdi in the 50's overthe last few years and couple with no significant cerebral vascular stenosis and normal LV function I am very doubtful that cerebral hypoperfusion is mainly from lower cardiac output. No indication forppm. I would consider an implantable loop recorder (REVEAL) if concern for atrial arrhythmias as potential culprit. Rachel Andrea MD - 03/23/2014 9:53 AM CDT [facility] Neurology Progress Note Assessment and Plan: 1. Intermittent TIAs Pt has another spells last night while on heparin. Less severe. Lasted about 15- 20 minutes. Could beatypical migraine but I am am concerned we are missing hypoperfusion to brain and risk of stroke. I question whether the patient's bradycardia could be contributing and have momentary decreased perfusion related to the numerous severe intracranial stenoses. Discussed with Dr Henderson and will ask cardiology to see. I wonder whether an event monitor may be needed as an outpatient. He reports chronic bradycardia issues. I will defer to hospitalist and cards as to whether it will be ok to restart beta eduardo. On heparin until coumadin reaches goal INR 2.0-3.0 Dr Fox to see tomorrow. Attestation: I have reviewed today's vital signs, medications, labs and imaging. Interval History: Further spells last night, less severe than before because no vision problems but pt has lightheadedness and low grade headache. Review of Systems: The 5 point Review of Systems is negative other than noted in the HPI Medications: ??? warfarin 7.5 mg Oral ONCE at 18:00 ??? gabapentin (NEURONTIN) capsule 300 mg 300 mg Oral QAM ??? gabapentin (NEURONTIN) tablet 600 mg 600 mg Oral At Bedtime ??? magnesium oxide 400 mg Oral QAM ??? pregabalin (LYRICA) capsule 75 mg 75 mg Oral At Bedtime ??? rOPINIRole (REQUIP) tablet 1 mg 1 mg Oral At Bedtime ??? simvastatin 20 mg Oral At Bedtime ??? sodium chloride (PF) 3 mL Intravenous Q8H Warfarin Therapy Reminder, - MEDICATION INSTRUCTIONS -, labetalol, hydrALAZINE, Lidocaine, lidocaine4 %, sodium chloride (PF), naloxone, senna-docusate, polyethylene glycol, bisacodyl, ondansetron, ondansetron, prochlorperazine, prochlorperazine, prochlorperazine, acetaminophen, acetaminophen PE BP 152/85 Pulse 48 Temp(Src) 97.8 ??F (36.6 ??C) (Oral) Resp 16 Ht 1.854 m (6' 0.99) Wt 117.8 kg (259 lb 11.2 oz) BMI 34.27 kg/m2 SpO2 97% Gen: awake, alert, NAD Neuro: PERRL, EOMI no nystagmus, face symmetric and tongue is midline. Pt has some mild incoordination in left hand but better than yesterday. Strength in all four extremities is normal. Ext: no edema CV: bradycardia Data: Results for orders placed during the hospital encounter of 03/21/14 (from the past 24 hour(s)) US LOWER EXTREMITY VENOUS DUPLEX BILATERAL Narrative: US LOWER EXTREMITY VENOUS DUPLEX BILATERAL 03/22/2014 2:58 PM HISTORY: Transient ischemic attack. Pain. TECHNIQUE: Bilateral lower extremity venous Doppler. Color and Doppler waveform analysis was performed as part of the exam. FINDINGS: Considering both lower extremities, the common femoral veins, femoral veins, popliteal veins, posterior tibial veins, greater saphenous veins show normal compressibility, augmentation, and flow characteristics. There is no evidence for deep venous thrombosis. Impression: IMPRESSION: Negative bilateral lower extremity venous Doppler. HORACIO SAMANO MD HEPARIN 10A LEVEL Result Value Range Heparin 10A Level 0.25 HEPARIN 10A LEVEL Result Value Range Heparin 10A Level 0.32 INR Result Value Range INR 0.93 0.86 - 1.14 - -Rachel Andrea MD [facility] 03/23/2014 9:59 AM Brandon Henderson MD - 03/23/2014 9:41 AM CDT [facility] Hospitalist Progress Note Brandon Henderson MD, MD 03/23/2014 Interval History: [place] flushed, lightheaded with mild headache last night for approximately 15 minutes. Assessment and Plan: Marlene Mccall is a 63 year old male with history of left cerebellar stroke, HTN, HLD in 2003 who presents on 03/21/2014 with acute right sided weakness and aphasia, now resolved but now with recurring transient partial loss of vision in the left eye and history of recurring episodes of imbalance and right sided weakness/numbness during the last week. He was on plavix and ASA and head CTA multiple known, unchanged intracranial atherosclerotic plaque moderate narrowing of the distal left vertebral artery and mild narrowing of the distal internal carotid arteries of both sides. Recurrent TIA's on ASA/plavix with multiple intracranial atherosclerotic plaques -- MRI without evidence of acute inarct, known chronic left cerebellar infarct -- continue heparin drip and started on coumadin per neurology. Holding further ASA and plavix -- continue simvastatin -- hold home atenolol and lisinopril to preserve cerebral perfusion with permissive htn. -- PT/OT, continue neuro checks. -- TTE: Bubble study mildly postive and suspected PFO (has known hx of PFO -- b/l LE doppler was negative for DVT. Hyperlipemia CHOL 117, HDL 38, LDL 56 03/21/2014, TRIG 116 03/21/2014 -- continue MOTOR ANALYST simvastatin HTN -- Holding atenolol and lisinopril for permissive HTN in context of recurring sx. -- PRN meds ordered for BP 200/110. Restless Leg Syndrome -- Continue Requip, lyrica DVT prophy -- On heparin, warfarin Dispo -- pending further recs from neurology. Physical Exam: Heart Rate: 52, Blood pressure 152/85, pulse 48, temperature 97.8 ??F (36.6 ??C), temperature sourceOral, resp. rate 16, height 1.854 m (6' 0.99), weight 117.8 kg (259 lb 11.2 oz), SpO2 97 %. Filed Vitals: 03/21/14 1400 03/22/14 0403 03/23/14 0600 Weight: 115.667 kg (255 lb) 118.797 kg (261 lb 14.4 oz) 117.8 kg (259 lb 11.2 oz) Vital Signs with Ranges Temp: [97.4 ??F (36.3 ??C)-98.6 ??F (37 ??C)] 97.8 ??F (36.6 ??C) Heart Rate: [50-64] 52 Resp: [16-18] 16 BP: (148-171)/(69-85) 152/85 mmHg SpO2: [95 %-98 %] 97 % I/O's Last 24 hours I/O last 3 completed shifts: In: 2079 [P.O.:1680; I.V.:400] Out: - Constitutional: Alert,awake and NAD Lungs: CTAB, no wheezing Cardiovascular: RRR, no murmurs Abdomen: Soft, NT, ND, normal bowel sounds Ext: Strength symmetrical b/l UE and LE, cranial nerves intact Neuro CNII-XII intact. No focal deficits at this time. Medications: ??? warfarin 7.5 mg Oral ONCE at 18:00 ??? gabapentin (NEURONTIN) capsule 300 mg 300 mg Oral QAM ??? gabapentin (NEURONTIN) tablet 600 mg 600 mg Oral At Bedtime ??? magnesium oxide 400 mg Oral QAM ??? pregabalin (LYRICA) capsule 75 mg 75 mg Oral At Bedtime ??? rOPINIRole (REQUIP) tablet 1 mg 1 mg Oral At Bedtime ??? simvastatin 20 mg Oral At Bedtime ??? sodium chloride (PF) 3 mL Intravenous Q8H PRN Meds: Warfarin Therapy Reminder, - MEDICATION INSTRUCTIONS -, labetalol, hydrALAZINE, Lidocaine,lidocaine 4 %, sodium chloride (PF), naloxone, senna- docusate, polyethylene glycol, bisacodyl, ondansetron, ondansetron, prochlorperazine, prochlorperazine, prochlorperazine, acetaminophen, acetaminophen Data: All new lab and imaging data was reviewed. Recent Labs Lab Test 03/23/14 0823 03/22/14 0827 03/22/14 0428 03/21/14 1952 03/21/14 1404 05/26/12 1340 WBC -- -- -- 6.0 6.3 6.2 HGB -- -- -- 13.8 14.0 14.1 MCV -- -- -- 89 89 90 PLT -- -- -- 175 184 175 INR 0.93 0.91 0.92 -- 0.97 -- Recent Labs Lab Test 03/21/14 1404 11/04/13 0920 05/26/12 1340 12/14/11 1159 NA 142 -- 141 138 POTASSIUM 4.5 -- 4.1 4.3 CHLORIDE 105 -- 105 104 CO2 28 -- 25 29 BUN 18 -- 24 18 CR 1.21 -- 1.44* 1.02 ANIONGAP 9 -- 11 6 JADEN 9.0 -- 8.7 9.3 GLC 116* 99 134* 86 Recent Labs Lab Test 03/21/14 1404 12/14/11 1159 TROPI <0.012 <0.012 Paco Connors MD - 03/22/2014 1:36 PM CDT [facility] Hospitalist Progress Note Paco Connors MD, MD 03/22/2014 Interval History: Denies weakness, Numbness or vision loss at this time. States he has not had symptoms since last evening around 630pm. Denies chest pain, shortness of breath, nausea or vomiting. Assessment and Plan: Marlene Mccall is a 63 year old male with history of left cerebellar stroke, HTN, HLD in 2002 who presents on 03/21/2014 with acute right sided weakness and aphasia, now resolved but now with recurring transient partial loss of vision in the left eye and history of recurring episodes of imbalance and right sided weakness / numbness during the last week. He is on plavix and ASA and head CTA multiple known, unchanged intracranial atherosclerotic plaque moderate narrowing of the distal left vertebral artery and mild narrowing of the distal internal carotid arteries of both sides. Recurrent TIA's on ASA/plavix with multiple intracranial atherosclerotic plaques -- MRI without evidence of acute inarct, known chronic left cerebellar infarct -- continue heparin drip and started on coumadin per neurology, hold further ASA and plavix -- continue simvastatin -- hold home atenolol and lisinopril to preserve cerebral perfusion -- PT/OT, continue neuro checks. -- TTE: Bubble study mildly postive and suspected PFO (has known hx of PFO -- will check b/l LE doppler to r/o DVT Hyperlipemia CHOL 117, HDL 38, LDL 56 03/21/2014, TRIG 116 03/21/2014 -- continue MOTOR ANALYST simvastatin HTN -- Holding atenolol and lisinopril for permissive HTN in context of recurring sx., may resume tomorrow -- PRN meds ordered for BP 200/110. Restless Leg Syndrome -- Continue Requip, lyrica DVT prophy -- On heparin Dispo -- monitor symptoms for another 24 hrs, check dvt and if stable likely d/c tomorrow Physical Exam: Heart Rate: 64, Blood pressure 149/69, pulse 48, temperature 98.5 ??F (36.9 ??C), temperature sourceOral, resp. rate 18, height 1.854 m (6' 0.99), weight 118.797 kg (261 lb 14.4 oz), SpO2 98 %. Filed Vitals: 03/21/14 1400 03/22/14 0403 Weight: 115.667 kg (255 lb) 118.797 kg (261 lb 14.4 oz) Vital Signs with Ranges Temp: [97.5 ??F (36.4 ??C)-98.5 ??F (36.9 ??C)] 98.5 ??F (36.9 ??C) Pulse: [47-59] 48 Heart Rate: [48-64] 64 Resp: [16-20] 18 BP: (118-159)/(51-81) 149/69 mmHg SpO2: [95 %-100 %] 98 % I/O's Last 24 hours I/O last 3 completed shifts: In: 710 [P.O.:240; I.V.:470] Out: - Constitutional: Alert,awake and NAD Lungs: CTAB, no wheezing Cardiovascular: RRR, no murmurs Abdomen: Soft, NT, ND, normal bowel sounds Ext: Strength symmetrical b/l UE and LE, cranial nerves intact Medications: ??? gabapentin (NEURONTIN) capsule 300 mg 300 mg Oral QAM ??? gabapentin (NEURONTIN) tablet 600 mg 600 mg Oral At Bedtime ??? magnesium oxide 400 mg Oral QAM ??? pregabalin (LYRICA) capsule 75 mg 75 mg Oral At Bedtime ??? rOPINIRole (REQUIP) tablet 1 mg 1 mg Oral At Bedtime ??? simvastatin 20 mg Oral At Bedtime ??? sodium chloride (PF) 3 mL Intravenous Q8H PRN Meds: Warfarin Therapy Reminder, - MEDICATION INSTRUCTIONS -, labetalol, hydrALAZINE, Lidocaine,lidocaine 4 %, sodium chloride (PF), naloxone, senna- docusate, polyethylene glycol, bisacodyl, ondansetron, ondansetron, prochlorperazine, prochlorperazine, prochlorperazine, acetaminophen, acetaminophen Data: All new lab and imaging data was reviewed. Recent Labs Lab Test 03/22/14 0827 03/21/14195103/21/14 1404 05/26/12 1340 12/14/11 1159 WBC -- 6.0 6.3 6.2 6.3 HGB -- 13.8 14.0 14.1 14.4 MCV -- 89 89 90 90 PLT -- 175 184 175 183 INR 0.91 -- 0.97 -- 0.97 Recent Labs Lab Test 03/21/14 1404 11/04/13 0920 05/26/12 1340 12/14/11 1159 NA 142 -- 141 138 POTASSIUM 4.5 -- 4.1 4.3 CHLORIDE 105 -- 105 104 CO2 28 -- 25 29 BUN 18 -- 24 18 CR 1.21 -- 1.44* 1.02 ANIONGAP 9 -- 11 6 JADEN 9.0 -- 8.7 9.3 GLC 116* 99 134* 86 Recent Labs Lab Test 03/21/14 1404 12/14/11 1159 TROPI <0.012 <0.012 Carmen Thrasher - 03/22/2014 11:01 AM CDT 03/22/14 1054 General Information Onset Date 03/21/14 Start of Care Date 03/22/14 Referring Physician Stacey Bridges MD Patient Profile Review See Profile for full history and prior level of function Patient/Family Goals Statement To return home. Swallowing Evaluation Bedside swallow evaluation Behaviorial Observations WNL (within normal limits) Mode of current nutrition Oral diet Type of oral diet Regular;Thin liquid Comments complaints of acute onset R side weakness, aphasia, transient L side vision loss.Symptoms now resolved. Possible TIA/CVA. PMH: CVA 2003, HTN, neuropathy. Oral Musculature Evaluation Oral Musculature generally intact Structural Abnormalities none present Dentition present and adequate Mandibular Strength and Mobility intact Oral Labial Strength and Mobility WFL Lingual Strength and Mobility WFL Velar Elevation intact Buccal Strength and Mobility intact Volitional Abilities Cough;Throat clear;Swallow (present and adequate) Clinical Swallow Evaluation Additional Documentation Yes Clinical Swallow Eval: Thin Liquid Texture Trial Mode of Presentation, Thin Liquids cup;straw;self-fed Volume of Liquid or Food Presented 2 sips via cup, 3 sips via straw Oral Phase of Swallow WFL Pharyngeal Phase of Swallow intact Diagnostic Statement PSYCHIATRIC MENTAL HEALTH NURSE: no overt s/sx of aspiration. Clinical Swallow Eval: Pudding Thick Liquid Texture Trial Mode of Presentation, Pudding spoon;self-fed Volume of Pudding Presented 2 spoonfuls Oral Phase, Pudding WFL Pharyngeal Phase, Pudding intact Diagnostic Statement PSYCHIATRIC MENTAL HEALTH NURSE: no overt s/sx of aspiration noted. Clinical Swallow Eval: Semisolid Texture Trial Mode of Presentation, Semisolid spoon;self-fed Volume of Semisolid Food Presented 3 spoonfuls Oral Phase, Semisolid WFL Pharyngeal Phase, Semisolid intact Diagnostic Statement PSYCHIATRIC MENTAL HEALTH NURSE: no overt s/sx of aspiration noted. Clinical Swallow Eval: Solid Food Texture Trial Mode of Presentation, Solid self-fed Volume of Solid Food Presented 1 paz cracker square Oral Phase, Solid WFL Pharyngeal Phase, Solid intact Diagnostic Statement PSYCHIATRIC MENTAL HEALTH NURSE: no overt s/sx of aspiration noted. Swallow Eval: Clinical Impressions Skilled Criteria for Therapy Intervention No problems identified which require skilled intervention Functional Assessment Scale (FAS) 7 Dysphagia Outcome Severity Scale (KRZYSZTOF) Level 7 - KRZYSZTOF Diet texture recommendations Regular diet;Thin liquids Anticipated Discharge Disposition home Risks and Benefits of Treatment have been explained. Yes Patient, family and/or staff in agreement with Plan of Care Yes Clinical Impression Comments PSYCHIATRIC MENTAL HEALTH NURSE: Pt seen for bedside swallow evaluation. Pt presents with normal swallowing function on all consistencies trialed. No s/sx of aspiration noted on any consistency trialed. No PSYCHIATRIC MENTAL HEALTH NURSE services recommended at this time, PSYCHIATRIC MENTAL HEALTH NURSE will sign-off. Recommend home with family at discharge. Total Evaluation Time Total Evaluation Time (Minutes) 10 ILT Carol Stone, PT - 03/22/2014 10:38 AM CDT 03/22/14 1000 Quick Adds Type of Visit Initial PT Evaluation Living Environment (R) Lives With significant other;child([place]), adult (daughter lives in lower level) Living Arrangements house Home Accessibility stairs to enter home;stairs within home Number of Stairs To Enter Home 2 Number of Stairs Within Home 7 Stair Railings At Home present on right side Transportation Available car;family or friend will provide Self-Care Dominant Hand right Usual Activity Tolerance good Current Activity Tolerance good Regular Exercise no Activity/Exercise/Self-Care Comment Pt recently began weight watchers. Active with yard work. (R) Functional Level Prior (R) Ambulation 0-->independent (R) Transferring 0-->independent (R) Toileting 0-->independent (R) Bathing 0-->independent (R) Dressing 0-->independent (R) Eating 0-->independent (R) Communication 0-->understands/communicates without difficulty (R) Swallowing 0-->swallows foods and liquids without difficulty (R) Cognition 0 - no cognition issues reported (R) Fall history within last six months no Prior Functional Level Comment Some baseline LUE weakness and numbness following a CVA in 2002. General Information Onset of Illness/Injury or Date of Surgery - Date 03/21/14 Referring Physician Stacey Bridges MD Patient/Family Goals Statement Go home Pertinent History of Current Problem 63 YOM with complaints of acute onset R side weakness, aphasia,transient L side vision loss.Symptoms now resolved. Possible TIA/CVA. PMH: CVA 2002, HTN, neuropathy. Precautions/Limitations fall precautions Weight-Bearing Status - LUE full weight-bearing Weight-Bearing Status - RUE full weight-bearing Weight-Bearing Status - LLE full weight-bearing Weight-Bearing Status - RLE full weight-bearing General Observations Pleasant and cooperative General Info Comments Activity: up with assist Cognitive Status Examination Orientation orientation to person, place and time Level of Consciousness alert Follows Commands and Answers Questions 100% of the time;able to follow multistep instructions Personal Safety and Judgment intact Memory intact Pain Assessment Patient Currently in Pain No Posture Posture Forward head position Range of Motion (ROM) ROM Comment BLEs WFL Strength Strength Comments BLEs grossly 5/5 throughout Bed Mobility Bed Mobility Comments Independent Transfer Skills Transfer Comments Independent Gait Gait Comments Independent x 300' without a LOB or gait deficits. Up/down 10 stairs with railing and reciprocal pattern modified independent. Balance Balance Comments Good sitting and standing EO/EC, feet together, picking object up off the floor. Sensory Examination Sensory Perception Comments Intact to LT B LEs Coordination Coordination Comments Intact for heel to mcnulty and toe taps. General Therapy Interventions Intervention Comments eval only Clinical Impression Criteria for Skilled Therapeutic Intervention no;evaluation only;no problems identified which require skilled intervention;current level of function same as previous level of function Therapy Frequency` other (see comments) (eval only) Predicted Duration of Therapy Intervention (days/wks) 1 day Anticipated Discharge Disposition home Risk & Benefits of therapy have been explained Yes Patient, Family & other staff in agreement with plan of care Yes Clinical Impression Comments Pt reports he feels back to usual. Total Evaluation Time Total Evaluation Time (Minutes) 15 Rachel Andrea MD - 03/22/2014 10:03 AM CDT [facility] Progress Note Assessment and Plan: 1. Stuttering TIA symptoms The patient has been place don heparin and we will start Coumadin. Not a candidate for Xarelto b/c no documented a. Fib. Goal INR 2.0-3.0 This could represent atypical migraine but with all risk factors I think he needs to be treated as if they are TIAs. Echo is pending to evaluate PFO. MRI brain showed no new stroke but old stroke in cerebellum. Keep in hospital for at least 24 more hours to make sure he is stable. Pt encouraged to stay hydrated. He is fine to continue with weight watchers. DVT prophylaxis: anticoagulated Attestation: I have reviewed today's vital signs, medications, labs and imaging. Interval History: Further visual symptoms last night resolved now no further problems once on heparin. Review of Systems: The 5 point Review of Systems is negative other than noted in the HPI Medications: ??? gabapentin (NEURONTIN) capsule 300 mg 300 mg Oral QAM ??? gabapentin (NEURONTIN) tablet 600 mg 600 mg Oral At Bedtime ??? magnesium oxide 400 mg Oral QAM ??? pregabalin (LYRICA) capsule 75 mg 75 mg Oral At Bedtime ??? rOPINIRole (REQUIP) tablet 1 mg 1 mg Oral At Bedtime ??? simvastatin 20 mg Oral At Bedtime ??? sodium chloride (PF) 3 mL Intravenous Q8H - MEDICATION INSTRUCTIONS -, labetalol, hydrALAZINE, Lidocaine, lidocaine 4 %, sodium chloride (PF),naloxone, senna-docusate, polyethylene glycol, bisacodyl, ondansetron, ondansetron, prochlorperazine, prochlorperazine, prochlorperazine, acetaminophen, acetaminophen PE BP 156/78 Pulse 48 Temp(Src) 97.5 ??F (36.4 ??C) (Oral) Resp 20 Ht 1.854 m (6' 0.99) Wt 118.797 kg (261 lb 14.4 oz) BMI 34.56 kg/m2 SpO2 98% Gen: awake, alert NAD Neuro: no aphasia or dysarthria. Attention and recall intact. CN 2-12 intact, visual rico normal. Moving all four ext with good strength. Left hand tingling consistent with old stroke. Some difficulty with finger to nose with eyes shut in both hands. CV: RRR Chest: CTA B Ext: no edema, SCDs Data: Results for orders placed during the hospital encounter of 03/21/14 (from the past 24 hour(s)) BASIC METABOLIC PANEL Result Value Range Sodium 142 133 - 144 mmol/L Potassium 4.5 3.4 - 5.3 mmol/L Chloride 105 94 - 109 mmol/L Carbon Dioxide 28 20 - 32 mmol/L Anion Gap 9 6 - 17 mmol/L Glucose 116 (*) 60 - 99 mg/dL Urea Nitrogen 18 7 - 30 mg/dL Creatinine 1.21 0.66 - 1.25 mg/dL GFR Estimate 60 (*) >60 mL/min/1.7m2 GFR Estimate If Black 73 >60 mL/min/1.7m2 Calcium 9.0 8.5 - 10.4 mg/dL CBC WITH PLATELETS DIFFERENTIAL Result Value Range WBC 6.3 4.0 - 11.0 10e9/L RBC Count 4.62 4.4 - 5.9 10e12/L Hemoglobin 14.0 13.3 - 17.7 g/dL Hematocrit 41.0 40.0 - 53.0 % MCV 89 78 - 100 fl MCH 30.3 26.5 - 33.0 pg MCHC 34.1 31.5 - 36.5 g/dL RDW 12.2 10.0 - 15.0 % Platelet Count 184 150 - 450 10e9/L Diff Method Automated Method % Neutrophils 61.5 % Lymphocytes 24.1 % Monocytes 10.2 % Eosinophils 2.4 % Basophils 1.3 % Immature Granulocytes 0.5 Absolute Neutrophil 3.9 1.6 - 8.3 10e9/L Absolute Lymphocytes 1.5 0.8 - 5.3 10e9/L Absolute Monoctyes 0.6 0.0 - 1.3 10e9/L Absolute Eosinophils 0.2 0.0 - 0.7 10e9/L Absolute Basophils 0.1 0.0 - 0.2 10e9/L Abs Immature Granulocytes 0.0 0 - 0.4 10e9/L TROPONIN I Result Value Range Troponin I ES <0.012 0.000 - 0.034 ug/L INR Result Value Range INR 0.97 0.86 - 1.14 PARTIAL THROMBOPLASTIN TIME Result Value Range PTT 30 22 - 37 sec LIPID REFLEX TO DIRECT LDL PANEL Result Value Range Cholesterol 117 <200 mg/dL Triglycerides 116 0 - 150 mg/dL HDL Cholesterol 38 (*) >40 mg/dL LDL Cholesterol Calculated 56 0 - 129 mg/dL VLDL-Cholesterol 23 0 - 30 mg/dL Cholesterol/HDL Ratio 3.1 0.0 - 5.0 TSH WITH FREE T4 REFLEX Result Value Range TSH 0.36 (*) 0.4 - 5.0 mU/L T4 FREE Result Value Range T4 Free 1.18 0.70 - 1.85 ng/dL CT HEAD W/O CONTRAST Narrative: CT OF THE HEAD WITHOUT CONTRAST 03/21/2014 2:17 PM COMPARISON: Head CT 01/03/2012 HISTORY: Stroke. TECHNIQUE: [address] images of the head were acquired without IV contrast material. FINDINGS: A chronic left cerebellar infarct is again noted. There is mild diffuse cerebral volume loss. There are subtle patchy areas of decreased density in the cerebral white matter bilaterally that are consistent with sequela of chronic small vessel ischemic disease. The ventricles and basal cisterns are within normal limits in configuration given the degree of cerebral volume loss. There is no midline shift. There are no extra-axial fluid collections. No intracranial hemorrhage, mass or recent infarct. The visualized paranasal sinuses are well-aerated. There is no mastoiditis. There are no fractures of the visualized bones. Impression: IMPRESSION: Chronic left cerebellar infarct again noted. Diffuse cerebral volume loss and cerebral white matter changes consistent with chronic small vessel ischemic disease. No evidence for acute intracranial pathology. BILL RAY MD CT HEAD NECK ANGIO W/O & W CONTRAST Narrative: CT ANGIOGRAM OF THE HEAD AND NECK WITHOUT AND WITH CONTRAST 03/21/2014 2:27 PM COMPARISON: CT angiogram of the head and neck 01/03/2012 HISTORY: Stroke. TECHNIQUE: Precontrast localizing scans were followed by CT angiography with an injection of 120mL [id number]-370 nonionic contrast material IV with scans through the head and neck. Images were transferred to a separate 3-D workstation where multiplanar reformations and 3-D images were created. Estimates of carotid stenoses are made relative to the distal internal carotid artery diameters except as noted. FINDINGS: Neck CTA: The bilateral common carotid arteries remain widely patent. Calcified atherosclerotic plaque at the origins of the internal carotid arteries on both sides again noted resulting in only minimal narrowing of the origins of the cervical internal carotid arteries. The cervical internal carotid arteries bilaterally are otherwise widely patent. Calcified atherosclerotic plaque at the origin of the left vertebral artery again noted. The cervical vertebral arteries bilaterally are patent without stenosis. There is moderate atherosclerotic narrowing of the intradural distal left vertebral artery. The intradural right vertebral artery is patent without stenosis. [place] CTA: Calcified atherosclerotic plaque of the distal internal carotid arteries on both sides again noted resulting in at least mild narrowing bilaterally. The basilar, bilateral anterior cerebral, bilateral middle cerebral and bilateral posterior cervical arteries are patent and unremarkable. Impression: IMPRESSION: 1. Calcified atherosclerotic plaque at the origins of the left vertebral and bilateral internal carotid arteries that does not result in any significant narrowing. Otherwise, normal neck CTA. No change from the comparison study. 2. Calcified atherosclerotic plaque of the distal left vertebral artery and distal internal carotid arteries on both sides that result in at least moderate narrowing of the distal left vertebral artery and mild narrowing of the distal internal carotid arteries on both sides again noted without change. Otherwise, normal [place] CTA. No change from the comparison study. BILL RAY MD CT HEAD W CONTRAST Narrative: CT BRAIN PERFUSION 03/21/2014 2:30 PM COMPARISON: None. HISTORY: Stroke. TECHNIQUE: Time sequential axial CT images of the head were acquired during the administration of intravenous contrast ( ). CTA images of the [place] as well as color perfusion maps of the brain were created from this time sequential axial source data. FINDINGS: Other than altered perfusion at the site of the chronic left cerebellar infarct, there are no focal or regional perfusion defects in the brain. Impression: IMPRESSION: Normal CT perfusion of the brain. BILL RAY MD GLUCOSE BY METER Result Value Range Glucose 87 60 - 99 mg/dL CBC WITH PLATELETS Result Value Range WBC 6.0 4.0 - 11.0 10e9/L RBC Count 4.54 4.4 - 5.9 10e12/L Hemoglobin 13.8 13.3 - 17.7 g/dL Hematocrit 40.4 40.0 - 53.0 % MCV 89 78 - 100 fl MCH 30.4 26.5 - 33.0 pg MCHC 34.2 31.5 - 36.5 g/dL RDW 12.1 10.0 - 15.0 % Platelet Count 175 150 - 450 10e9/L MR BRAIN W/O & W CONTRAST Narrative: MR BRAIN W/O & W CONTRAST 03/21/2014 10:01 PM HISTORY: Acute CVI, TECHNIQUE: Multiplanar, multisequence MRI of the brain without and with 12 mL Gadavist IV contrast material. COMPARISON: CT scan dated 03/21/2014. FINDINGS: There is a chronic infarct in the inferior aspect of the left cerebellum.. There is no evidence of hemorrhage, mass, acute infarct, or anomaly. There are no gadolinium enhancing lesions. The facial structures appear normal. The arteries at the base of the brain and the dural venous sinuses appear patent. Impression: IMPRESSION: 1. No acute infarcts are identified. 2. Chronic left inferior cervical or infarct. HIMA VELEZ MD GLUCOSE BY METER Result Value Range Glucose 138 (*) 60 - 99 mg/dL HEPARIN 10A LEVEL Result Value Range Heparin 10A Level 0.12 HEPARIN 10A LEVEL Result Value Range Heparin 10A Level 0.47 - Rachel Andrea MD [facility] 03/22/2014 10:09 AM - Carol Wilburn, OT - 03/22/2014 8:54 AM CDT 03/22/14 0826 Quick Adds Type of Visit Initial Occupational Therapy Evaluation Living Environment (R) Lives With child([place]), adult;significant other Living Arrangements house Home Accessibility bed and bath are not on the first floor;stairs to enter home;stairs within home Number of Stairs To Enter Home 2 Number of Stairs Within Home 7 Stair Railings At Home present on right side Living Environment Comment pt has a walk in shower Self-Care Dominant Hand right Usual Activity Tolerance good Current Activity Tolerance good (R) Functional Level Prior (R) Ambulation 0-->independent [...] had a recent onset or change? none Prior Functional Level Comment Pt had a stroke 10 years ago which has left him with some L hand numbness however pt has been independent with all ADL's and IADL's General Information Onset of Illness/Injury or Date of Surgery - Date 03/21/[address] Bridges Patient/Family Goals Statement to get a diagnosis and treatment for whatever is going on Pertinent History of Current Problem Pt admitted with several episodes of R UE weakness, vision loss, and aphasia. Pt reports each episode resolves after several hours. CT reveals no new CVI. Pt placedon heparin and to undergo further workup Precautions/Limitations no known precautions/limitations Heart Disease Risk Factors (pt has a PFO, further workup intiated) Cognitive Status Examination Orientation orientation to person, place and time Level of Consciousness alert Follows Commands and Answers Questions 100% of the time Personal Safety and Judgment intact Memory intact Attention No deficits were identified Organization/Problem Solving No deficits were identified Executive Function No deficits were identified Visual Perception Visual Perception No deficits were identified Visual Perception Comments PT wears readers and reports that he has had 2 episodes of L visual fielddeficit, maybe cut however it resolves to no impairment after an hour. Sensory Examination Sensory Comments pt reports L UE sensory loss from previous stroke 10 years ago and no new changes Pain Assessment Patient Currently in Pain No Posture Posture not impaired Range of Motion (ROM) ROM Quick Adds No deficits were identified Strength Manual Muscle Testing Quick Adds No deficits were identified Coordination Upper Extremity Coordination No deficits were identified Mobility Bed Mobility Bed mobility skill: Supine to sit Bed Mobility Skill: Supine to Sit Level of [place]: Supine/Sit independent Transfer Skills Transfer Transfer Safety Analysis Bed/Chair Transfer Skill: Bed to Chair/Chair to Bed Level of [place]: Bed to Chair independent Transfer Skill: Sit to Stand Level of [place]: Sit/Stand independent Toilet Transfer Toilet Transfer Toilet Transfer Skill Transfer Skill: Toilet Transfer Level of [place]: Toilet independent Upper Body Dressing Level of [place]: Dress Upper Body independent Lower Body Dressing Level of [place]: Dress Lower Body independent Instrumental Activities of Daily Living (IADL) Previous Responsibilities yardwork;driving;work Clinical Impression Criteria for Skilled Therapeutic Interventions Met evaluation only Therapy Frequency other (see comments) (1 evaluation only) Anticipated Discharge Disposition home Total Evaluation Time Total Evaluation Time (Minutes) 34 documented in this encounter H&P Notes Stacey Bridges MD - 03/21/2014 6:00 PM CDT History and Physical Marlene Mccall Date of : 1950 Age: [age] year old Date of Admission: 03/21/2014 Primary care provider: Abbe Charles Assessment and Plan: Marlene Mccall is a 63 year old male with history of left cerebellar stroke, HTN, HLD in 2003 who presents on 03/21/2014 with acute right sided weakness and aphasia, now resolved but now with recurring transient partial loss of vision in the left eye and history of recurring episodes of imbalance and right sided weakness / numbness during the last week. He is on plavix and ASA and head CTA multiple known, unchanged intracranial atherosclerotic plaque moderate narrowing of the distal left vertebral artery and mild narrowing of the distal internal carotid arteries of both sides. Recurrent TIA's on ASA/plavix with multiple intracranial atherosclerotic plaques -- Discussed with Dr. Mann initially and Dr. Andrea when he started to have recurring L eye vision loss and plan is to place on heparin gtt without bolus, hold further ASA and plavix -- Lipids controlled on current dose of simvastatin, continue. -- BP not elevated, hold home atenolol and lisinopril to preserve cerebral perfusion -- NS @ 100 cc/h for 2 L -- Speech assessment at bedside negative, advance diet tonight but re-assess before eating if recurring neurologic deficits -- Frequent neuro checks. -- Telemetry -- TTE to evaluate PFO. If positive, get bilateral LE U/S -- PT/OT/Speech Eval -- Inpatient admission due to recurring symptoms. Hyperlipemia CHOL 117 03/21/2014 HDL 38 03/21/2014 LDL 56 03/21/2014 TRIG 116 03/21/2014 CHOLHDLRATIO 3.1 03/21/2014 -- continue [employer]ST simvastatin HTN -- Holding atenolol and lisinopril for permissive HTN in context of recurring sx. -- PRN meds ordered for BP 200/110. Restless Leg Syndrome -- Continue Requip, lyrica DVT prophy -- On heparin Dispo -- Anticipate at least 48 hour stay for evaluation and observation to make sure symptoms don't continue to occur. Chief Complaint: Right sided weakness and aphasia. History of Present Illness: Marlene Mccall is a 63 year old man brought to our hospital via EMS following the sudden onset of right arm weakness, right facial weakness and aphasia at about 12:30 pm. He was working with his daughterin her garden and began to feel overheated and somewhat dizzy. He drove the short distance to his home, and continued not to feel well, therefore waited in the car for a few minutes, where his came out and found him unable to communicate. The right side of his mouth was droopy and he was unable to use the right arm. EMS arrived to the spot and transported patient to our ED, as the patient's symptoms already started to improve. About one week ago (last Monday) and while driving he experienced w eakness, numbness and tingling in the right leg, which resolved spontaneously in a few hours. He hasalso had several other episodes lasting several minutes of unsteadiness on his feet with a sense of right sided weakness, which have occurred in the last week, approximately 6 in all. Since arriving in the hospital he has noted that the vision in his left will become blotchy. It lasted 25 minutes and he didn't tell anyone. While talking to me it happened again. He states he had previous episodes like this a year ago and was told by his neurologist that these are TIA's. Medications were not changedat that time. He has a history of stroke in 2002 causing left hemihypesthesia on Plavix and aspirin since then. Hewas told he had a PFO, but apparently it was not felt necessary to close it. He has had neuropathic pain, so he is in frequent contact with Dr. Milligan, his primary neurologist, who has been monitoring his cerebrovascular disease, as he does have intracranial occlusive disease. Apparently interventionaloptions have been examined and rejected in the past. At presentation, he is afebrile, HR 40-50s, NSR, bp 128/65, O2 98% on RA. BMP unremarkable. Cr 1.21,Lipid panel total cholesterol of 117, HDL 38, LDL 56, TG 116, troponin < 0.012. TSH 0.36. CBC normal. INR 0.97, PTT 30. CTA shows multiple areas of atherosclerotic plaque in the internal carotids and vertebral arteries with moderate narrowing of the distal left vertebral artery and mild narrowing of the distal internal carotid arteries of both sides. CT head shows old left cerebellar infarct without acute intracranial pathology and CT perfusion is negative. Past Medical History: H/o L Cerebellar CVI in 2001 with left hemiparesis -- I do not see the discharge summary. Echo in 2002 showed no source of emboli, atrial septum not adequately interrogated. Patient states a small PFO was found during that hospitalization. HTN Neuropathy Hyperlipidemia H/o recurrent diverticulitis, s/p sigmoid colectomy Restless Legs Past Surgical History: Past Surgical History Procedure Laterality Date ??? S/p sigmoid colectomy with lower anterior anastomosis for diverticulitis ??? Resection abdominal perineal ??? Colonoscopy ??? Colonoscopy 10/17/2012 Procedure: COLONOSCOPY; Colonoscopy; Surgeon: Damon Jaimes MD; Location: GI Social History: History Substance Use Topics ??? Smoking status: Never Smoker ??? Smokeless tobacco: Not on file ??? Alcohol Use: No Family History: No family history on file. Immunizations: There is no immunization history on file for this patient. Allergies: No Known Allergies Medications: Prescription Medications as of 03/21/2014 ATENOLOL PO Take 50 mg by mouth every morning ATENOLOL PO Take 25 mg by mouth At Bedtime GABAPENTIN PO Take 600 mg by mouth At Bedtime MAGNESIUM OXIDE PO Take 500 mg by mouth every morning Pregabalin (LYRICA PO) Take 75 mg by mouth At Bedtime ROPINIROLE HCL PO Take 1 mg by mouth At Bedtime (Takes 2 x 0.5mg tabs for a total of 1mg at bedtime) Riboflavin (VITAMIN B-2 PO) Take 200 mg by mouth 2 times daily GABAPENTIN PO Take 300 mg by mouth every morning lisinopril (PRINIVIL,ZESTRIL) 30 MG tablet Take 30 mg by mouth 2 times daily simvastatin (ZOCOR) 20 MG tablet Take 20 mg by mouth At Bedtime. folic acid-vit B6-vit B12 (FOLGARD) 0.8-10-0.115 MG TABS Take 1 tablet by mouth daily clopidogrel (PLAVIX) 75 MG tablet Take 75 mg by mouth daily. Multiple Vitamin (MULTI-VITAMIN) per tablet Take 1 tablet by mouth daily. aspirin 325 MG tablet Take 325 mg by mouth At Bedtime Review of Systems: The 10 point Review of Systems is negative other than noted in the HPI Physical Exam: Blood pressure 143/72, pulse 47, temperature 98.1 ??F (36.7 ??C), temperature source Oral, resp. rate 18, height 1.854 m (6' 0.99), weight 115.667 kg (255 lb), SpO2 96 %. Constitutional: awake, alert, cooperative, no apparent distress, and appears stated age Eyes: Lids and lashes normal, pupils equal, round and reactive to light, extra ocular muscles intact, sclera clear, conjunctiva normal Fundoscopic exam attempted but very constricted pupils so unable to view optic nerve. Visualized retina and vessels were normal, but very limited. ENT: Normocephalic, without obvious abnormality, atramatic, oral pharynx with moist mucus membranes, tonsils without erythema or exudates . Neck: Supple, symmetrical, trachea midline, no adenopathy, thyroid symmetric, not enlarged and no tenderness, skin normal Lungs: No increased work of breathing, good air exchange, clear to auscultation bilaterally, no crackles or wheezing Cardiovascular: Regular rate and rhythm, normal S1 and S2, no S3 or S4, and no murmur noted. Extremities are warm. No edema. Brisk carotid pulses without bruit. Abdomen: Normal bowel sounds, soft, non-distended, non-tender, no masses palpated, no hepatosplenomegally Musculoskeletal: There is no redness, warmth, or swelling of the joints. Normal build. Neurologic: Awake, alert, oriented to name, place and time. Cranial nerves II-XII intact. Moving a 4 extremities with 5/5 strength with just minimal decrease strength in left proximal UE. Cerebellar finger to nose mild dysmetric on the left (baseline), normal on right. Sensory is intact. Neuropsychiatric: General: normal, calm and normal eye contact Skin: no bruising or bleeding, no redness, warmth, or swelling and no rashes Data: Results for orders placed during the hospital encounter of 03/21/14 CT HEAD W CONTRAST Narrative: CT BRAIN PERFUSION 03/21/2014 2:30 PM COMPARISON: None. HISTORY: Stroke. TECHNIQUE: Time sequential axial CT images of the head were acquired during the administration of intravenous contrast ( ). CTA images of the [place] as well as color perfusion maps of the brain were created from this time sequential axial source data. FINDINGS: Other than altered perfusion at the site of the chronic left cerebellar infarct, there are no focal or regional perfusion defects in the brain. Impression: IMPRESSION: Normal CT perfusion of the brain. BILL RAY MD CT HEAD W/O CONTRAST Narrative: CT OF THE HEAD WITHOUT CONTRAST 03/21/2014 2:17 PM COMPARISON: Head CT 01/03/2012 HISTORY: Stroke. TECHNIQUE: [address] images of the head were acquired without IV contrast material. FINDINGS: A chronic left cerebellar infarct is again noted. There is mild diffuse cerebral volume loss. There are subtle patchy areas of decreased density in the cerebral white matter bilaterally that are consistent with sequela of chronic small vessel ischemic disease. The ventricles and basal cisterns are within normal limits in configuration given the degree of cerebral volume loss. There is no midline shift. There are no extra-axial fluid collections. No intracranial hemorrhage, mass or recent infarct. The visualized paranasal sinuses are well-aerated. There is no mastoiditis. There are no fractures of the visualized bones. Impression: IMPRESSION: Chronic left cerebellar infarct again noted. Diffuse cerebral volume loss and cerebral white matter changes consistent with chronic small vessel ischemic disease. No evidence for acute intracranial pathology. BILL RAY MD CT HEAD NECK ANGIO W/O & W CONTRAST Narrative: CT ANGIOGRAM OF THE HEAD AND NECK WITHOUT AND WITH CONTRAST 03/21/2014 2:27 PM COMPARISON: CT angiogram of the head and neck 01/03/2012 HISTORY: Stroke. TECHNIQUE: Precontrast localizing scans were followed by CT angiography with an injection of 120mL [id number]-370 nonionic contrast material IV with scans through the head and neck. Images were transferred to a separate 3-D workstation where multiplanar reformations and 3-D images were created. Estimates of carotid stenoses are made relative to the distal internal carotid artery diameters except as noted. FINDINGS: Neck CTA: The bilateral common carotid arteries remain widely patent. Calcified atherosclerotic plaque at the origins of the internal carotid arteries on both sides again noted resulting in only minimal narrowing of the origins of the cervical internal carotid arteries. The cervical internal carotid arteries bilaterally are otherwise widely patent. Calcified atherosclerotic plaque at the origin of the left vertebral artery again noted. The cervical vertebral arteries bilaterally are patent without stenosis. There is moderate atherosclerotic narrowing of the intradural distal left vertebral artery. The intradural right vertebral artery is patent without stenosis. [place] CTA: Calcified atherosclerotic plaque of the distal internal carotid arteries on both sides again noted resulting in at least mild narrowing bilaterally. The basilar, bilateral anterior cerebral, bilateral middle cerebral and bilateral posterior cervical arteries are patent and unremarkable. Impression: IMPRESSION: 1. Calcified atherosclerotic plaque at the origins of the left vertebral and bilateral internal carotid arteries that does not result in any significant narrowing. Otherwise, normal neck CTA. No change from the comparison study. 2. Calcified atherosclerotic plaque of the distal left vertebral artery and distal internal carotid arteries on both sides that result in at least moderate narrowing of the distal left vertebral artery and mild narrowing of the distal internal carotid arteries on both sides again noted without change. Otherwise, normal [place] CTA. No change from the comparison study. BILL RAY MD BASIC METABOLIC PANEL Result Value Range Sodium 142 133 - 144 mmol/L Potassium 4.5 3.4 - 5.3 mmol/L Chloride 105 94 - 109 mmol/L Carbon Dioxide 28 20 - 32 mmol/L Anion Gap 9 6 - 17 mmol/L Glucose 116 (*) 60 - 99 mg/dL Urea Nitrogen 18 7 - 30 mg/dL Creatinine 1.21 0.66 - 1.25 mg/dL GFR Estimate 60 (*) >60 mL/min/1.7m2 GFR Estimate If Black 73 >60 mL/min/1.7m2 Calcium 9.0 8.5 - 10.4 mg/dL CBC WITH PLATELETS DIFFERENTIAL Result Value Range WBC 6.3 4.0 - 11.0 10e9/L RBC Count 4.62 4.4 - 5.9 10e12/L Hemoglobin 14.0 13.3 - 17.7 g/dL Hematocrit 41.0 40.0 - 53.0 % MCV 89 78 - 100 fl MCH 30.3 26.5 - 33.0 pg MCHC 34.1 31.5 - 36.5 g/dL RDW 12.2 10.0 - 15.0 % Platelet Count 184 150 - 450 10e9/L Diff Method Automated Method % Neutrophils 61.5 % Lymphocytes 24.1 % Monocytes 10.2 % Eosinophils 2.4 % Basophils 1.3 % Immature Granulocytes 0.5 Absolute Neutrophil 3.9 1.6 - 8.3 10e9/L Absolute Lymphocytes 1.5 0.8 - 5.3 10e9/L Absolute Monoctyes 0.6 0.0 - 1.3 10e9/L Absolute Eosinophils 0.2 0.0 - 0.7 10e9/L Absolute Basophils 0.1 0.0 - 0.2 10e9/L Abs Immature Granulocytes 0.0 0 - 0.4 10e9/L TROPONIN I Result Value Range Troponin I ES <0.012 0.000 - 0.034 ug/L INR Result Value Range INR 0.97 0.86 - 1.14 PARTIAL THROMBOPLASTIN TIME Result Value Range PTT 30 22 - 37 sec GLUCOSE BY METER Result Value Range Glucose 87 60 - 99 mg/dL LIPID REFLEX TO DIRECT LDL PANEL Result Value Range Cholesterol 117 <200 mg/dL Triglycerides 116 0 - 150 mg/dL HDL Cholesterol 38 (*) >40 mg/dL LDL Cholesterol Calculated 56 0 - 129 mg/dL VLDL-Cholesterol 23 0 - 30 mg/dL Cholesterol/HDL Ratio 3.1 0.0 - 5.0 documented in this encounter Consult Notes Conor Ball MD - 03/23/2014 12:07 PM CDT CARDIOLOGY CONSULTATION REASON FOR CONSULTATION: It was my pleasure to see Mr. Marlene Mccall today at the request of the Neurology Service for evaluation of bradycardia as a potential cause for recurrent CVA/TIA. HISTORY OF PRESENT ILLNESS: Mr. Mccall is a 63-year-old gentleman with a history of a CVA that he had 10 years ago, who recently was hospitalized with another episode, and fortunately has recovered almost completely. He presented with right-sided weakness and aphasia. The patient was seen by neurology who recommended continuing with the dual antiplatelet agent. The patient is known to have sinus bradycardia in the 50s over the past couple of years, and apparently without any symptoms such as decreased exercise tolerance or dizziness. He is on low-dose atenolol. Apparently, last night at 8:30 p.m., he was having some neurological changes, and monitor at that time showed a sinus rate of 50-60 beats per minute. At no time was the patient noted to have any significant sinus pauses. The patient is known to have a small PFO and has preserved LV function. He was also found to have nosignificant cerebral vascular disease. The patient otherwise denies chest pain, near-syncope or syncope. PAST MEDICAL HISTORY: 1.CVA, with the most recent one occurring a week ago. 2.Hypertension. CURRENT MEDICATIONS: 1.Simvastatin 20. 2.Warfarin. SOCIAL HISTORY: No tobacco or alcohol use. FAMILY HISTORY: Negative for premature coronary artery disease or arrhythmia. REVIEW OF SYSTEMS: As above; otherwise, 10-point review of systems negative. PHYSICAL EXAMINATION: GENERAL: The patient appeared friendly, healthy, in no acute distress. VITAL SIGNS: Blood pressure today was 120-150/50-80. Heart rate was 50-60. HEENT: Normocephalic, atraumatic. Pupils equal and round. NECK: Supple. LUNGS: Clear. CARDIOVASCULAR: Normal S1 and S2. No S3, no S4. It was regular. ABDOMEN: Mildly obese. EXTREMITIES: Warm, no edema. NEUROLOGIC: The patient was alert and answered questions appropriately. EKG: Demonstrates sinus bradycardia at 52 beats per minute, without any ST changes, and has normal intervals and axis. LABS: Potassium was 4.5. IMPRESSION AND RECOMMENDATIONS: Mr. Mccall is a 63-year-old gentleman with a history of CVA more than 10 years ago, who was recently admitted for another CVA, and had a TIA episode last night. The patient is known to have bradycardia in the 50s for the past couple of years now, and the episode last night did not correspond to any significant bradyarrhythmias. Coupled with normal LV function, and no significant cerebrovascular disease, it is very doubtful that the low cardiac output stemming from his bradycardia is a major contributing factor to his symptoms. There is no indication for a pacemaker. I would agree on holding the atenolol. Nevertheless, I would recommend an implantable loop recorder (Reveal) if the exact cause of recurrent CVAs is unclear, as atrial arrhythmias could be a contributing factor. Please contact us if he wants to proceed with the procedure. I went over the procedure with the patient who seemed to be agreeable, but I will defer this to neurology's decision. CONOR BALL MD MT: [id number] Name: MARLENE MCCALL MRN: [id number] Account: [id number] : 1950 Consult Date: 03/23/2014 Document: [id number] cc: Abbe Charles MD Andrew Mann MD - 03/21/2014 3:11 PM CDT Neurology Consult Note Assessment and Plan: Rapidly improving neurological deficit, TIA vs. PRIND Recent TIA vs. CVI last Monday Previous strokes Known intracranial atherosclerosis Known, reportedly small, PFO The patient's NIHSS score is 1. He had a recent event last Monday, affecting a different territory(right leg), while his previous strokes were on the right (left hemihypesthesia) and in the cerebellum. His current event was left MCA, while the one from last week possibly left ASHLEY. For all this he is not a tPA candidate. The last event happened while he is on both aspirin and Plavix. Recommendations: 1. Admit to monitored bed 2. Continue antiplatelet agents unchanged for now. 3. If evidence of atrial fibrillation I would place on heparin. 4. If he has recurrennt TIAs I would have a low threshold for anticoagulation. 5. Would recommend obtaining a brain MRI with and without contrast (MRA is not needed as the patientalready had a CTA), an ECHO with bubbles, and would continue to monitor the patient with telemetry. 6. terminal makeup operator would consider Aggrenox vs. Warfarin. I spent 60 minutes in the ED providing critical care for this neurologically critically ill and unstable patient, reviewing emergency imaging, assessing patient, discussing case with Drs. West and Cory, discussing impression and recommendations with patient and and son, and evaluating his neurological symptoms repeatedly. History of Present Illness: A 63 year old man brought to our hospital via EMS following the sudden onset of right arm weakness, right facial weakness and aphasia at about 12:30 pm. He reports that prior to that he was at his daughter's home, helping her with gardening and admits feeling overheated and somewhat dizzy. He drove the short distance to his home, and continued not to feel well, therefore waited in the car for a few minutes, where his came out and found him unable to communicate. The right side of his mouth was droopy and he was unable to use the right arm. EMS arrived to the spot and transported patient to ourED, as the patient's symptoms already started to improve. About one week ago (last Monday) and while driving he experienced weakness, numbness and tingling in the right leg, which resolved spontaneously in a few hours. Of note he has a history of stroke causing left hemihypesthesia about ten years ago. At that time he had been transported to [facility] from [facility] on suspicion of ICH, but he did not haveICH. While hospitalized there he had another stroke. He has been maintained on Plavix and aspirin since then. He was told he had a PFO, but apparently it was not felt necessary to close it. He has had neuropathic pain, so he is in frequent contact with Dr. Milligan who has been monitoring his cerebrovascular disease, as he does have intracranial occlusive disease. Apparently interventional options have been examined and rejected in the past. Review of Systems: The 10 point Review of Systems is negative other than noted in the HPI Past Medical History: Past Medical History Diagnosis Date ??? Unspecified cerebral artery occlusion with cerebral infarction ??? Hypertension ??? Neuropathy Past Surgical History: Past Surgical History Procedure Laterality Date ??? Gi surgery ??? Resection abdominal perineal ??? Colonoscopy ??? Colonoscopy 10/17/2012 Procedure: COLONOSCOPY; Colonoscopy; Surgeon: Damon Jaimes MD; Location: GI Medications: Patient's Medications New Prescriptions No medications on file Previous Medications ASPIRIN 325 MG TABLET Take 325 mg by mouth daily. ATENOLOL (TENORMIN) 25 MG TABLET Take 25 mg by mouth daily. CLONAZEPAM (KLONOPIN) 0.5 MG TABLET Take 0.5 mg by mouth 2 times daily as needed. CLOPIDOGREL (PLAVIX) 75 MG TABLET Take 75 mg by mouth daily. FOLIC ACID-VIT B6-VIT B12 (FOLGARD) 0.8-10-0.115 MG TABS Take by mouth daily. GABAPENTIN PO Take 300 mg by mouth. IBUPROFEN (ADVIL,MOTRIN) 600 MG TABLET Take 1 tablet by mouth every 6 hours as needed for pain. LISINOPRIL (PRINIVIL,ZESTRIL) 30 MG TABLET Take 30 mg by mouth daily. MAGNESIUM 250 MG TABLET Take 1 tablet by mouth 2 times daily. METHOCARBAMOL (ROBAXIN) 500 MG TABLET Take 2 tablets by mouth 3 times daily as needed. MULTIPLE VITAMIN (MULTI-VITAMIN) PER TABLET Take 1 tablet by mouth daily. OMEGA-3 FATTY ACIDS (OMEGA-3 FISH OIL PO) Take by mouth. OXYCODONE-ACETAMINOPHEN (PERCOCET) 5-325 MG PER TABLET Take 1 tablet by mouth every 6 hours as needed for pain. SIMVASTATIN (ZOCOR) 20 MG TABLET Take 20 mg by mouth At Bedtime. SIMVASTATIN PO Take by mouth. Modified Medications No medications on file Discontinued Medications No medications on file Allergies: No Known Allergies Family History: No family history on file. His sister had a stroke in her 50's but also had diabetes. There is no family history of hypercoagulability. Social History: History Social History ??? Marital Status: Spouse Name: N/A Number of Children: N/A ??? Years of Education: N/A Occupational History ??? Not on file. Social History Main Topics ??? Smoking status: Never Smoker ??? Smokeless tobacco: Not on file ??? Alcohol Use: No ??? Drug Use: No ??? Sexually Active: Other Topics Concern ??? Not on file Social History Narrative ??? No narrative on file Physical Exam: Vitals were reviewed Blood pressure 146/71, pulse 59, temperature 98 ??F (36.7 ??C), temperature source Oral, resp. rate 20, height 1.854 m (6' 0.99), weight 115.667 kg (255 lb), SpO2 100 %. Wt Readings from Last 4 Encounters: 03/21/14 115.667 kg (255 lb) 10/17/12 113.399 kg (250 lb) 10/17/12 113.399 kg (250 lb) 05/26/12 113.399 kg (250 lb) Temperatures: Current - Temp: 98 ??F (36.7 ??C); Max - Temp Av ??F (36.7 ??C) Min: 98 ??F (36.7??C) Max: 98 ??F (36.7 ??C) Blood pressure range: Systolic (24hrs), Av mmHg, Min:128 mmHg, Max:146 mmHg ; Diastolic (24hrs), Av mmHg, Min:65 mmHg, Max:71 mmHg General appearance: healthy, alert and no distress, appears hydarated, vital signs stable Cardiovascular: NORMAL - regular rate and rhythm without murmur., without extra heart sounds and carotids with briskupstroke/without bruit bilaterally, easily palpated bilaterally Neurologic: Mental Status Exam: Level of Alertness: awake Orientation: normal to person, place, time Memory: normal for age Fund of Knowledge: normal Attention/Concentration: normal Language: normal Cranial Nerves: Visual rico: full; EOM: intact; Pupils: PERRL; Fundi: No papilledema; V, VII: no facial asymmetry to sensory, minimal flattening of the right NLF; tongue, palate: midline; shoulder and neck muscle strength: symmetric. Motor Exam: moves all extremities well and symmetrically. No drifts. Sensory: sensory intact to light touch/pinprick. Coordination: finger/Nose: right: normal; left: Slight terrminal tremor; lkgq-Cekg-Fimp: right: normal; left: normal; rapid Alternating Movements: right: normal; left: normal. Gait: critically il patient - not tested Deep Tendon Reflexes: reflexes are intact and symmetrical; plantar response: Right: flexor; left: flexor. Data: All laboratory and imaging data reviewed by me: Results for orders placed during the hospital encounter of 03/21/14 (from the past 24 hour(s)) BASIC METABOLIC PANEL Result Value Range Sodium 142 133 - 144 mmol/L Potassium 4.5 3.4 - 5.3 mmol/L Chloride 105 94 - 109 mmol/L Carbon Dioxide 28 20 - 32 mmol/L Anion Gap 9 6 - 17 mmol/L Glucose 116 (*) 60 - 99 mg/dL Urea Nitrogen 18 7 - 30 mg/dL Creatinine 1.21 0.66 - 1.25 mg/dL GFR Estimate 60 (*) >60 mL/min/1.7m2 GFR Estimate If Black 73 >60 mL/min/1.7m2 Calcium 9.0 8.5 - 10.4 mg/dL CBC WITH PLATELETS DIFFERENTIAL Result Value Range WBC 6.3 4.0 - 11.0 10e9/L RBC Count 4.62 4.4 - 5.9 10e12/L Hemoglobin 14.0 13.3 - 17.7 g/dL Hematocrit 41.0 40.0 - 53.0 % MCV 89 78 - 100 fl MCH 30.3 26.5 - 33.0 pg MCHC 34.1 31.5 - 36.5 g/dL RDW 12.2 10.0 - 15.0 % Platelet Count 184 150 - 450 10e9/L Diff Method Automated Method % Neutrophils 61.5 % Lymphocytes 24.1 % Monocytes 10.2 % Eosinophils 2.4 % Basophils 1.3 % Immature Granulocytes 0.5 Absolute Neutrophil 3.9 1.6 - 8.3 10e9/L Absolute Lymphocytes 1.5 0.8 - 5.3 10e9/L Absolute Monoctyes 0.6 0.0 - 1.3 10e9/L Absolute Eosinophils 0.2 0.0 - 0.7 10e9/L Absolute Basophils 0.1 0.0 - 0.2 10e9/L Abs Immature Granulocytes 0.0 0 - 0.4 10e9/L TROPONIN I Result Value Range Troponin I ES <0.012 0.000 - 0.034 ug/L INR Result Value Range INR 0.97 0.86 - 1.14 PARTIAL THROMBOPLASTIN TIME Result Value Range PTT 30 22 - [address] HEAD W/O CONTRAST Narrative: CT OF THE HEAD WITHOUT CONTRAST 03/21/2014 2:17 PM COMPARISON: Head CT 01/03/2012 HISTORY: Stroke. TECHNIQUE: [address] images of the head were acquired without IV contrast material. FINDINGS: A chronic left cerebellar infarct is again noted. There is mild diffuse cerebral volume loss. There are subtle patchy areas of decreased density in the cerebral white matter bilaterally that are consistent with sequela of chronic small vessel ischemic disease. The ventricles and basal cisterns are within normal limits in configuration given the degree of cerebral volume loss. There is no midline shift. There are no extra-axial fluid collections. No intracranial hemorrhage, mass or recent infarct. The visualized paranasal sinuses are well-aerated. There is no mastoiditis. There are no fractures of the visualized bones. Impression: IMPRESSION: Chronic left cerebellar infarct again noted. Diffuse cerebral volume loss and cerebral white matter changes consistent with chronic small vessel ischemic disease. No evidence for acute intracranial pathology. CT HEAD NECK ANGIO W/O & W CONTRAST Narrative: CT ANGIOGRAM OF THE HEAD AND NECK WITHOUT AND WITH CONTRAST 03/21/2014 2:27 PM COMPARISON: CT angiogram of the head and neck 01/03/2012 HISTORY: Stroke. TECHNIQUE: Precontrast localizing scans were followed by CT angiography with an injection of 120mL [id number]-[id number] nonionic contrast material IV with scans through the head and neck. Images were transferred to a separate 3-D workstation where multiplanar reformations and 3-D images were created. Estimates of carotid stenoses are made relative to the distal internal carotid artery diameters except as noted. FINDINGS: Neck CTA: The bilateral common carotid arteries remain widely patent. Calcified atherosclerotic plaque at the origins of the internal carotid arteries on both sides again noted resulting in only minimal narrowing of the origins of the cervical internal carotid arteries. The cervical internal carotid arteries bilaterally are otherwise widely patent. Calcified atherosclerotic plaque at the origin of the left vertebral artery again noted. The cervical vertebral arteries bilaterally are patent without stenosis. There is moderate atherosclerotic narrowing of the intradural distal left vertebral artery. The intradural right vertebral artery is patent without stenosis. [place] CTA: Calcified atherosclerotic plaque of the distal internal carotid arteries on both sides again noted resulting in at least mild narrowing bilaterally. The basilar, bilateral anterior cerebral, bilateral middle cerebral and bilateral posterior cervical arteries are patent and unremarkable. Impression: IMPRESSION: 1. Calcified atherosclerotic plaque at the origins of the left vertebral and bilateral internal carotid arteries but does not result in any significant narrowing. Otherwise, normal neck CTA. No change from the comparison study. 2. Calcified atherosclerotic plaque of the distal left vertebral artery and distal internal carotid arteries on both sides that result in at least moderate narrowing of the distal left vertebral artery and mild narrowing of the distal internal carotid arteries on both sides again noted without change. Otherwise, normal [place] CTA. No change from the comparison study. CT HEAD W CONTRAST Narrative: CT BRAIN PERFUSION 03/21/2014 2:30 PM COMPARISON: None. HISTORY: Stroke. TECHNIQUE: Time sequential axial CT images of the head were acquired during the administration of intravenous contrast ( ). CTA images of the [place] as well as color perfusion maps of the brain were created from this time sequential axial source data. FINDINGS: Other than altered perfusion at the site of the chronic left cerebellar infarct, there are no focal or regional perfusion defects in the brain. Impression: IMPRESSION: Normal CT perfusion of the brain. documented in this encounter ED Notes Buddy West MD - 03/21/2014 1:59 PM CDT History Chief Complaint: Slurred Speech HPI Marlene Mccall is a 63 year old male with a history of stroke who presents via EMS for evaluation of slurred speech. The patient reports that he was at work and felt lightheaded around 12 pm this afternoon. He drove home, and around 12:30 his noticed that he had garbled speech. He cites some mild right sided weakness, and intermittent headaches on the left side of his head for several seconds thatresolved. He notes that his symptoms have greatly improved since EMS arrived, but still has some mild symptoms. He reports that he has had intermittent episodes of lightheadedness throughout the week as well. He denies any chest pain, shortness of breath, abdominal pain, visual disturbances, or other symptoms. Allergies: NKDA Medications: Gabapentin Fish oil Simvastatin Magnesium Klonopin Prinivil Tenormin Zocor Multivitamin Aspirin Folgard Plavix Advil Robaxin Percocet Past Medical History: Cerebral artery occlusion with cerebral infarction Hypertension Neuropathy Past Surgical History: GI surgery Perineal abdominal resection Colonoscopy Family Medical History: History reviewed. No pertinent family medical history noted Social History: The patient denies any history of smoking or alcohol use. Review of Systems Constitutional: Negative for fever and chills. Eyes: Negative for visual disturbance. Respiratory: Negative for shortness of breath. Cardiovascular: Negative for chest pain. Gastrointestinal: Negative for nausea, vomiting and abdominal pain. Neurological: Positive for speech difficulty, weakness and headaches. Negative for dizziness and numbness. All other systems reviewed and are negative. Physical Exam First Vitals: BP 128/65 Pulse 59 Resp 20 Ht 1.854 m (6' 0.99) Wt 115.667 kg (255 lb) BMI 33.65 kg/m2 SpO2 100% Physical Exam Constitutional: He is oriented to person, place, and time. He appears well- developed and well-nourished. Slightly fatigued. No significant distress HENT: Head: Atraumatic. Right Ear: External ear normal. Left Ear: External ear normal. Mouth/Throat: Oropharynx is clear and moist. Mild flattening of the right nasal and labial fold Eyes: EOM are normal. Pupils are equal, round, and reactive to light. Neck: Neck supple. No JVD present. Cardiovascular: Normal rate and intact distal pulses. Pulmonary/Chest: Effort normal and breath sounds normal. Abdominal: Soft. Bowel sounds are normal. He exhibits no distension. There is no tenderness. There is no guarding. Musculoskeletal: Normal range of motion. He exhibits no edema or tenderness. Lymphadenopathy: He has no cervical adenopathy. Neurological: He is alert and oriented to person, place, and time. Moves all 4 extremities with 5/5 power. Appears to have very subtle right pronator drift. Sensation intact in all dermatomes Skin: Skin is warm and dry. No rash noted. Psychiatric: He has a normal mood and affect. Emergency Department Course ECG: Indication: Slurred speech Findings: Sinus bradycardia. Left axis deviation. Left ventricular hypertrophy with QRS widening. Cannot rule out septal infarct, age undetermined. Ventricular rate [address] West at 1430 R wave axis: -32 Imaging: CT Head w/ contrast: Other than altered perfusion at the site of the chronic left cerebellar infarct, there are no focal or regional perfusion defects in the brain. Report per radiology CT Head w/o contrast: Chronic left cerebellar infarct again noted. Diffuse cerebral volume loss and cerebral white matter changes consistent with chronic small vessel ischemic disease. No evidence for acute intracranial pathology. Report per radiology CT Head Neck Angio w/ & w/o contrast: 1. Calcified atherosclerotic plaque at the origins of the left vertebral and bilateral internal carotid arteries that does not result in any significant narrowing. Otherwise, normal neck CTA. No changefrom the comparison study. 2. Calcified atherosclerotic plaque of the distal left vertebral artery and distal internal carotid arteries on both sides that result in at least moderate narrowing of the distal left vertebral arteryand mild narrowing of the distal internal carotid arteries on both sides again noted without change.Otherwise, normal [place] CTA. No change from the comparison study. Report per radiology Laboratories: BMP: Glucose 116 high, GFR 60 low, o/w WNL (creatinine 1.21) CBC: WNL (WBC 6.3, HGB 14.0, PLT 184) INR: 0.97 WNL Troponin I: <0.012 WNL PTT: 30 WNL Interventions: Aspirin 325 mg PO Emergency Department Course: 1:55 PM: I performed an exam of the patient as documented above. GCS 15 IV was inserted and blood was drawn. 2:02 PM: Code stroke called. 2:09 PM: Discussed the patient with Dr. Mann, who will come to the emergency department to evaluate the patient. CT Head w/ contrast, CT Head w/o contrast, and CT Head Neck Angio w/ & w/o contrast was obtained. Results as above. Findings discussed with the Patient. I personally reviewed the laboratory results with the Patient and answered all related questions. Findings and plan explained to the Patient and family who consents to admission. Discussed the patient with Dr. Bridges, who will admit the patient to a monitored bed for further monitoring, evaluation,and treatment. Impression & Plan Medical Decision Making: The patient did have some focal neurologic findings. For these reasons, a code stroke was activated.Dr. Mann evaluated the patient emergently. The patient's ECG was benign. He went for emergent CT/CTA of his head and neck. This showed no acute findings. The family then arrived, and relayed how the patient did have some focal right leg weakness a week ago and how his symptoms approximately 2-2.5 hours ago were quite dense, including very thick speech and profound right arm weakness. These symptoms have clearly improved. Secondary to his marked clinical improvement and the fact that he may have had a very small stroke a week ago, he was not considered to be a TPA candidate. This was explainedto the family. At this point the patient was given an aspirin and some fluids. He will be admitted to neuro special care. I spoke with Dr. Stacey Bridges who will admit the patient. Diagnosis: Visit Diagnosis, Associated Orders, and Comments ICD-9-CM 1. Acute ischemic stroke 434.91 subacute I, José Oneil, am serving as a scribe on 03/21/2014 at 2:00 PM to personally document services performed by Dr. West based on my observations and the provider's statements to me. 03/21/2014 EMERGENCY DEPARTMENT Buddy West MD 03/21/14 [id number] Julia Orr - 03/21/2014 1:54 PM CDTBed: ED27
Expected date:
Expected time:
Means of arrival:
Comments:
[facility] 595 to rm 27 eta 25min Stroke symptoms 63 male documented in this encounter Miscellaneous Notes Plan of Care - Diana Chaudhari RN - 03/27/2014 2:39 PM CDT Problem: IP GENERAL POC-ADULT,OB,BEHAVIORAL FVCPM Goal: Individualization/Patient-Specific Goal (Adult,OB,Behavioral The patient and/or their retail wireless sales representative will achieve their patient-specific goals related to the plan of care. The patient-specific goals include: 1)03/21 stroke 2)Not a FR / NKA / Code: TBD 3) Pain goal 03/01 4) Past Medical History: Cerebral artery occlusion with cerebral infarction Hypertension Neuropathy Past Surgical History: GI surgery Perineal abdominal resection Colonoscopy 5) Plans to discharge home with and children Outcome: Adequate for Discharge Date Met: 03/27/14 Goal: Discharge Planning (Adult, OB, Behavioral, Peds) Outcome: Adequate for Discharge Date Met: 03/27/14 Goal: Plan of Care Review (Adult,OB,Behavioral) The patient and/or their retail wireless sales representative will communicate an understanding of their plan of care. Outcome: Adequate for Discharge Date Met: 03/27/14 Problem: Stroke (Ischemic)/Transient Ischemic Attack (TIA) (Adult, Obstetrics) Intervention: Communication Enhancement Strategies RN: pt dc'd to home with to provide private transportation. Verbalized understanding of d/c plan including the information in the 'understanding stroke' book and the warfarin and atenolol handouts, all meds, and followup. Very minimal ataxia noted in LUE during pt's [id number] performed with eyes closed, otherwise no residual noted. Goal: Prevent/Manage Potential Problems Outcome: Adequate for Discharge Date Met: 03/27/14 Plan of Care - Carmen Nieto, PIO - 03/27/2014 6:09 AM CDT Problem: IP GENERAL POC-ADULT,OB,BEHAVIORAL FVCPM Goal: Individualization/Patient-Specific Goal (Adult,OB,Behavioral The patient and/or their retail wireless sales representative will achieve their patient-specific goals related to the plan of care. The patient-specific goals include: 1)03/21 stroke 2)Not a FR / NKA / Code: TBD 3) Pain goal 03/01 4) Past Medical History: Cerebral artery occlusion with cerebral infarction Hypertension Neuropathy Past Surgical History: GI surgery Perineal abdominal resection Colonoscopy 5) Plans to discharge home with and children Outcome: No Change Pt alert and oriented x 4, VSS. Neuros intact. Denies numbness and tingling. Denies pain. Heparing gtt infusing at 13.5 cc/hr, recheck this morning. Regular diet. Voiding without difficulty. Mid chest dressing clean, dry and intact. Tele sinus nnamdi dysrhythmia. Up independently. Plan to discharge to home today if INR therapeutic. Plan of Care - Bernarda Campo RN - 03/26/2014 9:22 PM CDT Problem: IP GENERAL POC-ADULT,OB,BEHAVIORAL FVCPM Goal: Individualization/Patient-Specific Goal (Adult,OB,Behavioral The patient and/or their retail wireless sales representative will achieve their patient-specific goals related to the plan of care. The patient-specific goals include: 1)03/21 stroke 2)Not a FR / NKA / Code: TBD 3) Pain goal 03/01 4) Past Medical History: Cerebral artery occlusion with cerebral infarction Hypertension Neuropathy Past Surgical History: GI surgery Perineal abdominal resection Colonoscopy 5) Plans to discharge home with and children Outcome: No Change Pt alert and oriented. Neuros intact, but does have intermittent baseline LUE ataxia and left side numbness and tingling.Tolerating diet. Up independent in room. Heparin gtt infusing. Dressing mid chest replaced for loop recorder. Tele SD. Possible d/c tomorrow in INR therapeutic. Goal: Plan of Care Review (Adult,OB,Behavioral) The patient and/or their retail wireless sales representative will communicate an understanding of their plan of care. Outcome: No Change Problem: Stroke (Ischemic)/Transient Ischemic Attack (TIA) (Adult, Obstetrics) Goal: Prevent/Manage Potential Problems Outcome: No Change Plan of Care - Lorenza Mason RN - 03/26/2014 12:57 PM CDT Problem: IP GENERAL POC-ADULT,OB,BEHAVIORAL FVCPM Goal: Individualization/Patient-Specific Goal (Adult,OB,Behavioral The patient and/or their retail wireless sales representative will achieve their patient-specific goals related to the plan of care. The patient-specific goals include: 1)03/21 stroke 2)Not a FR / NKA / Code: TBD 3) Pain goal 03/01 4) Past Medical History: Cerebral artery occlusion with cerebral infarction Hypertension Neuropathy Past Surgical History: GI surgery Perineal abdominal resection Colonoscopy 5) Plans to discharge home with and children Outcome: No Change A/O. CMS intact except c/o intermitent LUE/LE numbness and LUE ataxia which is baseline from previous CVA. On heparin gtt at 13.5 units/hr. INR 1.72 today, on coumadin. Up independently. Voiding adequately. Tolerating regular diet. Discharge to home pending therapeutic INR. at bedside. Hospitalist, Neurology, and Cardiology following patient. Goal: Plan of Care Review (Adult,OB,Behavioral) The patient and/or their retail wireless sales representative will communicate an understanding of their plan of care. Outcome: No Change Plan of Care - Cass Yap RN - 03/26/2014 5:26 AM CDT Problem: IP GENERAL POC-ADULT,OB,BEHAVIORAL FVCPM Goal: Individualization/Patient-Specific Goal (Adult,OB,Behavioral The patient and/or their retail wireless sales representative will achieve their patient-specific goals related to the plan of care. The patient-specific goals include: 1)03/21 stroke 2)Not a FR / NKA / Code: TBD 3) Pain goal 03/01 4) Past Medical History: Cerebral artery occlusion with cerebral infarction Hypertension Neuropathy Past Surgical History: GI surgery Perineal abdominal resection Colonoscopy 5) Plans to discharge home with and children Outcome: Improving Neuro's unchanged, LUE ataxia and numbness in RADHA/LLE from prior CVI. Tele SB. Tolerating reg diet. Hep gtt infusing at 13.5 mL/hr. Surgical site from loop encounter [facility]. Vitals stable. Goal to d/c whenINR therapeutic. Plan of Care - Chari Miranda RN - 03/25/2014 10:06 PM CDT Problem: IP GENERAL POC-ADULT,OB,BEHAVIORAL FVCPM Goal: Individualization/Patient-Specific Goal (Adult,OB,Behavioral The patient and/or their retail wireless sales representative will achieve their patient-specific goals related to the plan of care. The patient-specific goals include: 1)03/21 stroke 2)Not a FR / NKA / Code: TBD 3) Pain goal 03/01 4) Past Medical History: Cerebral artery occlusion with cerebral infarction Hypertension Neuropathy Past Surgical History: GI surgery Perineal abdominal resection Colonoscopy 5) Plans to discharge home with and children Outcome: Improving A&O. Baseline LUE ataxia, L. Side numb/ting. Tele SB. Tolerating reg diet after loop recorder. Up with SBA. VSS after cardiac procedure, site CDI, L. Arm immobolized, HOB above 30 degrees. C/o painto BLE, received PRN tylenol w/ adequate relief. HEp 10a level redrawn in am. BP below parameters. Plan of Care - Bernarda Campo, PIO - 03/25/2014 1:57 PM CDT Problem: IP GENERAL POC-ADULT,OB,BEHAVIORAL FVCPM Goal: Individualization/Patient-Specific Goal (Adult,OB,Behavioral The patient and/or their retail wireless sales representative will achieve their patient-specific goals related to the plan of care. The patient-specific goals include: 1)03/21 stroke 2)Not a FR / NKA / Code: TBD 3) Pain goal 5/10 4) Past Medical History: Cerebral artery occlusion with cerebral infarction Hypertension Neuropathy Past Surgical History: GI surgery Perineal abdominal resection Colonoscopy 5) Plans to discharge home with and children Outcome: No Change Pt alert and oriented. Neuros intact except baseline LUE ataxia and left side intermittent numbness and tingling. Denies pain. Independent in room. Heparin gtt running. Tele NSR. Plan for Loop recorderimplantation today and discharge when INR therapeutic. Goal: Plan of Care Review (Adult,OB,Behavioral) The patient and/or their retail wireless sales representative will communicate an understanding of their plan of care. Outcome: No Change Problem: Stroke (Ischemic)/Transient Ischemic Attack (TIA) (Adult, Obstetrics) Goal: Prevent/Manage Potential Problems Outcome: No Change Plan of Care - Cass Yap RN - 03/25/2014 6:23 AM CDT Problem: IP GENERAL POC-ADULT,OB,BEHAVIORAL FVCPM Goal: Individualization/Patient-Specific Goal (Adult,OB,Behavioral The patient and/or their retail wireless sales representative will achieve their patient-specific goals related to the plan of care. The patient-specific goals include: 1)03/21 stroke 2)Not a FR / NKA / Code: TBD 3) Pain goal 5/10 4) Past Medical History: Cerebral artery occlusion with cerebral infarction Hypertension Neuropathy Past Surgical History: GI surgery Perineal abdominal resection Colonoscopy 5) Plans to discharge home with and children Outcome: Improving AOx4, neuros to baseline. Slight LUE ataxia baseline. Denies pain. Up independently in room. Heparininfusing at 1050 units/hour. [id number] in am. Tele SR with BBB. Cont to monitor. Plan of Care - Neeta Stiles RN - 03/24/2014 9:20 PM CDT Problem: IP GENERAL POC-ADULT,OB,BEHAVIORAL FVCPM Goal: Individualization/Patient-Specific Goal (Adult,OB,Behavioral The patient and/or their retail wireless sales representative will achieve their patient-specific goals related to the plan of care. The patient-specific goals include: 1)03/21 stroke 2)Not a FR / NKA / Code: TBD 3) Pain goal 03/01 4) Past Medical History: Cerebral artery occlusion with cerebral infarction Hypertension Neuropathy Past Surgical History: GI surgery Perineal abdominal resection Colonoscopy 5) Plans to discharge home with and children AOx4, neuros to baseline. Slight LUE ataxia from previous CVI. Denies pain. Up independently in room. Heparin infusing at 1050 units/hour. Next 10a in am. Plan to discharge when INR therapeutic, currently 1.01. Plan of Care - Chari Miranda RN - 03/24/2014 4:15 PM CDT Problem: IP GENERAL POC-ADULT,OB,BEHAVIORAL FVCPM Goal: Individualization/Patient-Specific Goal (Adult,OB,Behavioral The patient and/or their retail wireless sales representative will achieve their patient-specific goals related to the plan of care. The patient-specific goals include: 1)03/21 stroke 2)Not a FR / NKA / Code: TBD 3) Pain goal 03/01 4) Past Medical History: Cerebral artery occlusion with cerebral infarction Hypertension Neuropathy Past Surgical History: GI surgery Perineal abdominal resection Colonoscopy 5) Plans to discharge home with and children Outcome: Improving A&O. Neuros intact. VSS. Tele. Reg diet w/ thin liquids. Up indpt, calls appropriately. Denies pain. Heparin Redraw in am. IV Fluids infusing. Plan of Care - Lorenza Mason RN - 03/24/2014 5:08 AM CDT Problem: IP GENERAL POC-ADULT,OB,BEHAVIORAL FVCPM Goal: Individualization/Patient-Specific Goal (Adult,OB,Behavioral The patient and/or their retail wireless sales representative will achieve their patient-specific goals related to the plan of care. The patient-specific goals include: 1)03/21 stroke 2)Not a FR / NKA / Code: TBD 3) Pain goal 510 4) Past Medical History: Cerebral artery occlusion with cerebral infarction Hypertension Neuropathy Past Surgical History: GI surgery Perineal abdominal resection Colonoscopy 5) Plans to discharge home with and children Outcome: No Change A/O x4. VSS except bradycardic at times and hypertensive but within parameters (<200/100). CMS and Neuro intact except baseline LUE ataxia from prior stroke. No c/o of pain overnight. Tolerating Regula diet. Voiding adequately. Regular bowels. Up independently. Heparin gtt infusing at 10.5 units/hr, plan for redraw this AM, on Coumadin, INR subtherapeutic @0.93. Tele SB w/ BBB, 1st degree AVD and PVC. Cardiology, Neurology, and Hospitalist following patient. Plan for possible Reveal loop recorderas outpatient. Goal: Plan of Care Review (Adult,OB,Behavioral) The patient and/or their retail wireless sales representative will communicate an understanding of their plan of care. Outcome: No Change Problem: Fall/Trauma/Injury Risk (Adult, Obstetrics) Goal: Identify Signs and Symptoms and Related Risk Factors Signs and symptoms and related risk factors are identified upon initiation of Human Response Clinical Practice Guideline (CPG) Outcome: No Change Problem: Stroke (Ischemic)/Transient Ischemic Attack (TIA) (Adult, Obstetrics) Goal: Prevent/Manage Potential Problems Outcome: No Change Plan of Care - Qiana Pichardo RN - 03/23/2014 9:46 PM CDT Problem: IP GENERAL POC-ADULT,OB,BEHAVIORAL FVCPM Goal: Individualization/Patient-Specific Goal (Adult,OB,Behavioral The patient and/or their retail wireless sales representative will achieve their patient-specific goals related to the plan of care. The patient-specific goals include: 1)03/21 stroke 2)Not a FR / NKA / Code: TBD 3) Pain goal 03/01 4) Past Medical History: Cerebral artery occlusion with cerebral infarction Hypertension Neuropathy Past Surgical History: GI surgery Perineal abdominal resection Colonoscopy 5) Plans to discharge home with and children Outcome: No Change Patient A&O x 4. VSS. Tele = SR with BBB. Patient c/o 12/30 bilateral foot pain relieved with Tylenol. Patient had another episode of lightheadedness and hot flashes at 1900. MDs notified and IV fluids restarted. Pharmacist did Coumadin teaching tonight. Heparin drip infusing at 1050 units/hr. Tolerating regular diet. Voiding. Will continue to monitor. Problem: Fall/Trauma/Injury Risk (Adult, Obstetrics) Goal: Identify Signs and Symptoms and Related Risk Factors Signs and symptoms and related risk factors are identified upon initiation of Human Response Clinical Practice Guideline (CPG) Outcome: No Change Problem: Stroke (Ischemic)/Transient Ischemic Attack (TIA) (Adult, Obstetrics) Goal: Prevent/Manage Potential Problems Outcome: No Change Provider Notification - Layne Walton RN - 03/23/2014 7:50 PM CDT Talked with Dr. Andrea about patient having another episode similar to the last two nights. Patient c/o a hot flash, flushed, slight right facial droop and difficulty reading words. No fever and VSS. Patient stated I just don't feel right. MD aware and asked nursing to continue to monitor. Neurologist to follow up in the morning. Talked with Dr. Ramos about patient not being on IV fluids and having a hx of extending his previous stroke. MD ordered NS at 50cc/hr since patient has good PO intake. Nursing will continue to monitor. Plan of Care - Bernarda Campo RN - 03/23/2014 1:24 PM CDT Problem: IP GENERAL POC-ADULT,OB,BEHAVIORAL FVCPM Goal: Individualization/Patient-Specific Goal (Adult,OB,Behavioral The patient and/or their retail wireless sales representative will achieve their patient-specific goals related to the plan of care. The patient-specific goals include: 1)03/21 stroke 2)Not a FR / NKA / Code: TBD 3) Pain goal 03/01 4) Past Medical History: Cerebral artery occlusion with cerebral infarction Hypertension Neuropathy Past Surgical History: GI surgery Perineal abdominal resection Colonoscopy 5) Plans to discharge home with and children Outcome: No Change Pt alert and oriented. Neuros intact except baseline LUE ataxia and left side intermittent numbness and tingling. No new changes this shift. Tolerating diet. Independent in room. Tele SBD with 1 degreeAVB. BP elevated but within parameters. Heparin gtt infusing. Goal: Plan of Care Review (Adult,OB,Behavioral) The patient and/or their retail wireless sales representative will communicate an understanding of their plan of care. Outcome: No Change Problem: Stroke (Ischemic)/Transient Ischemic Attack (TIA) (Adult, Obstetrics) Goal: Prevent/Manage Potential Problems Outcome: No Change Plan of Care - Azucena Stiles RN - 03/23/2014 5:23 AM CDT Problem: IP GENERAL POC-ADULT,OB,BEHAVIORAL FVCPM Goal: Individualization/Patient-Specific Goal (Adult,OB,Behavioral The patient and/or their retail wireless sales representative will achieve their patient-specific goals related to the plan of care. The patient-specific goals include: 1)03/21 stroke 2)Not a FR / NKA / Code: TBD 3) Pain goal 03/01 4) Past Medical History: Cerebral artery occlusion with cerebral infarction Hypertension Neuropathy Past Surgical History: GI surgery Perineal abdominal resection Colonoscopy 5) Plans to discharge home with and children Outcome: No Change A&Ox4. LUE ataxia (baseline from previous stroke). Baseline intermittent numbness/tingling on left side. Otherwise neuros intact. No recurrence of symptoms from last evening. Tele SB. Heparin infusing at 10.5ml/hr. Up with SBA/independently. Denied pain. Problem: Stroke (Ischemic)/Transient Ischemic Attack (TIA) (Adult, Obstetrics) Goal: Prevent/Manage Potential Problems Outcome: No Change Plan of Care - Qiana Pichardo RN - 03/22/2014 11:46 PM CDT Problem: IP GENERAL POC-ADULT,OB,BEHAVIORAL FVCPM Goal: Individualization/Patient-Specific Goal (Adult,OB,Behavioral The patient and/or their retail wireless sales representative will achieve their patient-specific goals related to the plan of care. The patient-specific goals include: 1)03/21 stroke 2)Not a FR / NKA / Code: TBD 3) Pain goal 03/01 4) Past Medical History: Cerebral artery occlusion with cerebral infarction Hypertension Neuropathy Past Surgical History: GI surgery Perineal abdominal resection Colonoscopy 5) Plans to discharge home with and children Outcome: No Change Patient A&O x 4. VSS. See previous progress note: at 2039 patient had episode of slight right facial droop, dull headache, dizziness, lightheadedness and hot flashes. Dr. Thompson notified and ordered to continue to monitor patient. Will notify her of any changes t/o night. Patient has baseline numbness/tinging to left hand and is slightly ataxic on left side at baseline. Patient up with standby assist. Will continue to monitor. Problem: Fall/Trauma/Injury Risk (Adult, Obstetrics) Goal: Identify Signs and Symptoms and Related Risk Factors Signs and symptoms and related risk factors are identified upon initiation of Human Response Clinical Practice Guideline (CPG) Outcome: No Change Problem: Stroke (Ischemic)/Transient Ischemic Attack (TIA) (Adult, Obstetrics) Goal: Prevent/Manage Potential Problems Outcome: No Change Provider Notification - Qiana Pichardo RN - 03/22/2014 9:02 PM CDT Patient c/o new hot flashes, headache, lightheadedness, and a slight right facial droop. Paged on-call Neurologist to notify. Waiting for return call. Will monitor. [id number]: Dr. Thompson returned page. Ordered to continue to monitor patient with neuro checks. If neurosymptoms worsen with speech or new or worsening deficits she wants to be notified and will then order CT scan of the head. No other orders at this time. Will continue to monitor. Plan of Care - Bernarda Campo RN - 03/22/2014 6:35 PM CDT Problem: IP GENERAL POC-ADULT,OB,BEHAVIORAL FVCPM Goal: Individualization/Patient-Specific Goal (Adult,OB,Behavioral The patient and/or their retail wireless sales representative will achieve their patient-specific goals related to the plan of care. The patient-specific goals include: 1)03/21 stroke 2)Not a FR / NKA / Code: TBD 3) Pain goal 03/01 4) Past Medical History: Cerebral artery occlusion with cerebral infarction Hypertension Neuropathy Past Surgical History: GI surgery Perineal abdominal resection Colonoscopy 5) Plans to discharge home with and children Outcome: No Change Pt alert and oriented. CMS intact except baseline intermittent numbness and tingling left side. Up with stand by assist to bathroom. Tele NSR. Heparin gtt infusing. Coumadin started tonight. Tylenol given for restless legs. Possible discharge tomorrow. Goal: Plan of Care Review (Adult,OB,Behavioral) The patient and/or their retail wireless sales representative will communicate an understanding of their plan of care. Outcome: No Change Problem: Stroke (Ischemic)/Transient Ischemic Attack (TIA) (Adult, Obstetrics) Goal: Prevent/Manage Potential Problems Outcome: No Change Pharmacy-Anticoagulation Service - Li Pablo RPH - 03/22/2014 3:19 PM CDT Clinical Pharmacy- Warfarin Dosing Consult Pharmacy has been consulted to manage this patient???s warfarin therapy. Patient is new to warfarin therapy. The warfarin is indicated for multiple TIAs. Patient???s goal INR is: 2-3. Current medications that may interact with warfarin and/or INR: none noted. Past Medical History Diagnosis Date ??? Unspecified cerebral artery occlusion with cerebral infarction ??? Hypertension ??? Neuropathy History of bleeding (bleeding ulcers, hematoma): none noted History of blood clots (DVT, PE, hypercoagulable state): multiple TIAs Recommend warfarin 7.5 mg today. Pharmacy will monitor patient daily and order warfarin doses to achieve specified INR goal. Please contact pharmacy as soon as possible if the warfarin needs to be held for a procedure or if the INR goals change. Li Pablo PharmD PGY-1 Geochemistry Teacher March 22, 2014 Utilization Review - Jovanna Presley MD - 03/22/2014 2:47 PM CDT Ingrid Guzman Admission Status; Secondary Review Determination Admission Date: 03/21/2014 1:54 PM Under the authority of the Utilization [...] inpatient care and reasonable inpatient medical practice. () Observation Status Appropriate - This patient does not meet hospital inpatient criteria and is placed in observation status. If this patient's primary payer is Medicare and was admitted as an inpatient, Condition Code 44 should be used and patient status changed to observation. () Admission Status NOT Appropriate - This patient's medical care is not consistent with medical management for Inpatient or Observation Status. () Outpatient Procedure Status Appropriate - Procedure not on Medicare Inpatient list and no complications at the time of this review RATIONALE FOR DETERMINATION Brief clinical presentation, information copied from the chart, abbreviated and edited for relevant content: Marlene Mccall is a 63 year old male with history of left cerebellar stroke, HTN, HLD who presented on03/21/2014 with acute right sided weakness and aphasia, now resolved but now with recurring transient partial loss of vision in the left eye and history of recurring episodes of imbalance and right sided weakness / numbness during the last week. 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 Also PMH of PFO. At presentation, he was afebrile, HR 40-50s, NSR, bp 128/65, O2 98% on RA. BMP unremarkable. Cr 1.21, Lipid panel total cholesterol of 117, HDL 38, LDL 56, TG 116, troponin < 0.012. TSH 0.36. CBC normal. INR 0.97, PTT 30. CTA shows multiple areas of atherosclerotic plaque in the internal carotids and vertebral arteries with moderate narrowing of the distal left vertebral artery and mild narrowing of the distal internal carotid arteries of both sides. CT head shows old left cerebellar infarct without acute intracranial pathology and CT perfusion is negative. Admitted inpatient for likely recurrent TIA's, failing outpatient management with full asprin and plavix, with multiple intracranial atherosclerotic plaques. Started on IV heparin, IVf, speech consult,neuro checks and neurology consult. In addition, per CMS guidelines, the patient will be requiring hospital care for more than 2 midnights, therefore inpatient admission is appropriate. Plan also includes Echo to evaluate prior PFO. Inpatient admission is appropriate. The inpatient certification was signed on 03/[address] Bridges. In summary, the severity of illness, intensity of service provided, expected length of stay and riskfor adverse outcome make the care complex, high risk and appropriate for hospital admission. The information on this document is developed [...] 1 and Chapter 6, section 70.4. Sincerely, Jovanna Presley MD Utilization Review/ Case Management [facility]. Plan of Care - Carmen Thrasher - 03/22/2014 11:03 AM CDT Problem: General Rehab Plan of Care Goal: Speech Language Pathology Goals The patient and/or their retail wireless sales representative will achieve their patient-specific goals related to the plan of care. The patient-specific goals include: Outcome: Completed Date Met: 03/22/14 PSYCHIATRIC MENTAL HEALTH NURSE: Pt seen for bedside swallow evaluation. Pt presents with normal swallowing function at this time. No s/sx of aspiration noted on all consistencies trialed. No PSYCHIATRIC MENTAL HEALTH NURSE services indicated at this time. PSYCHIATRIC MENTAL HEALTH NURSE will sign-off. Recommendations: Regular/thin and discharge home with family. Plan of Care - Carol Stone PT - 03/22/2014 10:41 AM CDT Problem: General Rehab Plan of Care Goal: Occupational Therapy Goals The patient and/or their retail wireless sales representative will achieve their patient-specific goals related to the plan of care. The patient-specific goals include: Outcome: Completed Date Met: 03/22/14 PT: PT orders received, initial eval completed. Patient lives in a split entry home with his SO and daughter who lives on the lower level. Previously independent with all ADLs and mobility without a device, drives. Pt currently demonstrates independence with bed mobility, transfers, gait x 300' without LOB or gait deficits, up/down stairs with railing and reciprocal pattern. Pt reports feeling back to usual. No skilled PT services indicated at this time. Will sign off. Rec home with family at hospital disch. Plan of Care - Carol Stone PT - 03/22/2014 9:41 AM CDT Problem: General Rehab Plan of Care Goal: Physical Therapy Goals The patient and/or their retail wireless sales representative will achieve their patient-specific goals related to the plan of care. The patient-specific goals include: PT: PT orders received, chart reviewed, eval attempted. Pt busy with echo. Plan of Care - Carol Wilburn, OT - 03/22/2014 8:57 AM CDT Problem: General Rehab Plan of Care Goal: Occupational Therapy Goals The patient and/or their retail wireless sales representative will achieve their patient-specific goals related to the plan of care. The patient-specific goals include: OT: Evaluation completed. Pt presented with several episodes of R UE weakness and vision changes, however pt has completely resolved and no impairments noted. Pt is able to complete ambulation, transfers, ADL's and IADL's independently. Pt does have some baseline L UE numbness from previous CVI 10 years ago. No impairments to warrant continued OT services. PT to discharge home with spouse when able. Plan of Care - Lorenza Mason RN - 03/22/2014 5:46 AM CDT Problem: IP GENERAL POC-ADULT,OB,BEHAVIORAL FVCPM Goal: Individualization/Patient-Specific Goal (Adult,OB,Behavioral The patient and/or their retail wireless sales representative will achieve their patient-specific goals related to the plan of care. The patient-specific goals include: 1)03/21 stroke 2)Not a FR / NKA / Code: TBD 3) Pain goal 03/01 4) Past Medical History: Cerebral artery occlusion with cerebral infarction Hypertension Neuropathy Past Surgical History: GI surgery Perineal abdominal resection Colonoscopy 5) Plans to discharge home with and children Outcome: No Change A/O. Neuro intact except intermittent LUE slight weakness, intermittent LUE and LLE n/t, and Lf ataxia which are all baseline for patient since previous stroke in '03. Intermittent BLE pain r/t restless legs, decreased with Tylenol x2 doses. Tolerating Regular diet. Voiding adequately. Regular bowels.Up with SBA. Heparin gtt infusing Rt AC at 12.5 mL/hr. IV 0.9 NS infusing at 100 mL/hr. LF hand PIV SL'd. Plan for echo today. PT, OT, Speech, Hospitalist, and Neurology following patient. Tele SBD andSBD with 1st degree AVB. attentive at bedside. Goal: Plan of Care Review (Adult,OB,Behavioral) The patient and/or their retail wireless sales representative will communicate an understanding of their plan of care. Outcome: No Change Problem: Fall/Trauma/Injury Risk (Adult, Obstetrics) Goal: Identify Signs and Symptoms and Related Risk Factors Signs and symptoms and related risk factors are identified upon initiation of Human Response Clinical Practice Guideline (CPG) Outcome: No Change Problem: Stroke (Ischemic)/Transient Ischemic Attack (TIA) (Adult, Obstetrics) Goal: Prevent/Manage Potential Problems Outcome: No Change Plan of Care - Bernarda Campo, PIO - 03/21/2014 6:30 PM CDT Problem: IP GENERAL POC-ADULT,OB,BEHAVIORAL FVCPM Goal: Individualization/Patient-Specific Goal (Adult,OB,Behavioral The patient and/or their retail wireless sales representative will achieve their patient-specific goals related to the plan of care. The patient-specific goals include: 1)03/21 stroke 2)Not a FR / NKA / Code: TBD 3) Pain goal 03/01 4) Past Medical History: Cerebral artery occlusion with cerebral infarction Hypertension Neuropathy Past Surgical History: GI surgery Perineal abdominal resection Colonoscopy 5) Plans to discharge home with and children Outcome: No Change Pt alert and oriented. Neuros intact except baseline left side ataxia and intermittent numb/tinglingand LUE weakness. All other sx resolved. Tele SB. Denies pain. Passed bedside swallow, on regular diet. Up with stand by assist to bathroom . Slightly unsteady on feet; baseline per patient. 184: WhenMD was assessing patient, patient c/o new vision changes-left field cut noted on assessment, now resolved. Heparin gtt started per MD order. Will continue to monitor patient. Encouraged patient to callRN LIA with any new changes. Goal: Plan of Care Review (Adult,OB,Behavioral) The patient and/or their retail wireless sales representative will communicate an understanding of their plan of care. Outcome: No Change Problem: Stroke (Ischemic)/Transient Ischemic Attack (TIA) (Adult, Obstetrics) Goal: Prevent/Manage Potential Problems Outcome: No Change Pharmacy-Admission Medication History - Ruth Donato - 03/21/2014 4:02 PM CDT Admission medication history interview status for the 03/21/2014 admission is complete. See [facility] admission navigator for prior to admission medications Medication history source reliability:Good Actions taken by pharmacist (provider contacted, etc):Verified Lyrica and lisinopril with [facility] pharmacy. Pt's had all other info. Additional medication history information not noted on MOTOR [employer]ST med list :None Medication reconciliation/reorder completed by provider prior to medication history? No Time spent in this activity: 20 minutes Prior to Admission medications Medication Sig Last Dose Taking? Auth Provider ATENOLOL PO Take 50 mg by mouth every morning 03/21/2014 at am Yes Dummy, Bfp User ATENOLOL PO Take 25 mg by mouth At Bedtime 03/20/2014 at hs Yes Dummy, Bfp User GABAPENTIN PO Take 600 mg by mouth At Bedtime 03/20/2014 at hs Yes Dummy, Bfp User MAGNESIUM OXIDE PO Take 500 mg by mouth every morning 03/21/2014 at am Yes Dummy, Bfp User Pregabalin (LYRICA PO) Take 75 mg by mouth At Bedtime 03/20/2014 at hs Yes Dummy, Bfp User ROPINIROLE HCL PO Take 1 mg by mouth At Bedtime (Takes 2 x 0.5mg tabs for a total of 1mg at bedtime)03/20/2014 at hs Yes Dummy, Bfp User Riboflavin (VITAMIN B-2 PO) Take 200 mg by mouth 2 times daily 03/21/2014 at am x 1 dose Yes Dummy, Bfp User GABAPENTIN PO Take 300 mg by mouth every morning 03/21/2014 at am Yes Reported, Patient lisinopril (PRINIVIL,ZESTRIL) 30 MG tablet Take 30 mg by mouth 2 times daily 03/21/2014 at am x 2 doses Yes Reported, Patient simvastatin (ZOCOR) 20 MG tablet Take 20 mg by mouth At Bedtime. 03/20/2014 at hs Yes Reported, Patient folic acid-vit B6-vit B12 (FOLGARD) 0.8-10-0.115 MG TABS Take 1 tablet by mouth daily 03/21/2014 at am Yes Reported, Patient clopidogrel (PLAVIX) 75 MG tablet Take 75 mg by mouth daily. 03/21/2014 at am Yes Reported, Patient Multiple Vitamin (MULTI-VITAMIN) per tablet Take 1 tablet by mouth daily. 03/21/2014 at am Yes Reported, Patient aspirin 325 MG tablet Take 325 mg by mouth At Bedtime 03/20/2014 at hs Yes Reported, Patient documented in this encounter Plan of Treatment Pending Results Name Type Priority Associated Diagnoses Date/Ti me INR AND PTT PANEL Lab STAT 03/21/2014 2:04 PM CDT Scheduled Orders Name Type Priority Associated Diagnoses Order S chedule Inpatient Electrophysiology Imaging Routine One Time for 1 Adult order Occurrences sta rting 03/25/2014 unti l 03/25/2014 documented as of this encounter Procedures Procedure Name Priority Date/Time Associated Comments Diagnosis INR Routine 03/27/2014 7:47 AM Acute ischemic Results for this CDT stroke (H) procedure are i n the results section. HEPARIN 10A LEVEL Routine 03/27/2014 7:47 AM Acute ischemic Re sults for this CDT stroke (H) procedure are i n the results section. CBC WITH PLATELETS Routine 03/27/2014 7:47 AM Acute ischemic R esults for this CDT stroke (H) procedure are i n the results section. INR Routine 03/26/2014 7:45 AM Acute ischemic Results for this CDT stroke (H) procedure are i n the results section. HEPARIN 10A LEVEL Routine 03/26/2014 7:45 AM Acute ischemic Re sults for this CDT stroke (H) procedure are i n the results section. EP REPORT - HIM SCAN Routine 03/25/2014 4:21 PM CDT HEPARIN 10A LEVEL Timed 03/25/2014 2:55 PM Acute ischemic Re sults for this CDT stroke (H) procedure are i n the results section. VITAMIN D DEFICIENCY Routine 03/25/2014 11:25 Acute ischemic R esults for this SCREENING AM CDT stroke (H) procedure are i n the results section. HEMOGLOBIN A1C Routine 03/25/2014 11:25 Acute ischemic Results for this AM CDT stroke (H) procedure are i n the results section. T3 FREE Routine 03/25/2014 11:25 Acute ischemic Results f or this AM CDT stroke (H) procedure are i n the results section. VITAMIN B12 Routine 03/25/2014 11:25 Acute ischemic Results f or this AM CDT stroke (H) procedure are i n the results section. INR Routine 03/25/2014 6:28 AM Acute ischemic Results for this CDT stroke (H) procedure are i n the results section. HEPARIN 10A LEVEL Routine 03/25/2014 6:28 AM Acute ischemic Re sults for this CDT stroke (H) procedure are i n the results section. BASIC METABOLIC PANEL Routine 03/25/2014 6:28 AM Acute ischemi c Results for this CDT stroke (H) procedure are i n the results section. INR Routine 03/24/2014 7:00 AM Acute ischemic Results for this CDT stroke (H) procedure are i n the results section. HEPARIN 10A LEVEL Routine 03/24/2014 7:00 AM Acute ischemic Re sults for this CDT stroke (H) procedure are i n the results section. BASIC METABOLIC PANEL Routine 03/24/2014 7:00 AM Acute ischemi c Results for this CDT stroke (H) procedure are i n the results section. CBC WITH PLATELETS Routine 03/24/2014 7:00 AM Acute ischemic R esults for this CDT stroke (H) procedure are i n the results section. INR Routine 03/23/2014 8:23 AM Acute ischemic Results for this CDT stroke (H) procedure are i n the results section. HEPARIN 10A LEVEL Routine 03/23/2014 8:23 AM Acute ischemic Re sults for this CDT stroke (H) procedure are i n the results section. HEPARIN 10A LEVEL STAT 03/22/2014 5:45 PM Acute ischemic Re sults for this CDT stroke (H) procedure are i n the results section. US LOWER EXTREMITY Routine 03/22/2014 2:58 PM Res ults for this VENOUS DUPLEX BILATERAL CDT proc edure are in the results section. ECHO BUBBLE COMPLETE Routine 03/22/2014 9:40 AM R esults for this CDT procedure are i n the results section. INR Routine 03/22/2014 8:27 AM Acute ischemic Results for this CDT stroke (H) procedure are i n the results section. HEPARIN 10A LEVEL Timed 03/22/2014 8:27 AM Acute ischemic Re sults for this CDT stroke (H) procedure are i n the results section. INR Timed 03/22/2014 4:28 AM Acute ischemic Results for this CDT stroke (H) procedure are i n the results section. HEPARIN 10A LEVEL Timed 03/22/2014 4:28 AM Acute ischemic Re sults for this CDT stroke (H) procedure are i n the results section. HEPARIN 10A LEVEL Timed 03/22/2014 12:50 Acute ischemic Resu lts for this AM CDT stroke (H) procedure are i n the results section. GLUCOSE BY METER Routine 03/21/2014 11:14 Acute ischemic Resul ts for this PM CDT stroke (H) procedure are i n the results section. MR BRAIN W/O & W Routine 03/21/2014 10:01 Results for this CONTRAST PM CDT procedure are i n the results section. CBC WITH PLATELETS STAT 03/21/2014 7:52 PM Acute ischemic R esults for this CDT stroke (H) procedure are i n the results section. GLUCOSE BY METER Routine 03/21/2014 5:21 PM Acute ischemic Res ults for this CDT stroke (H) procedure are i n the results section. CT HEAD W CONTRAST STAT 03/21/2014 2:30 PM Res ults for this CDT procedure are i n the results section. CTA HEAD NECK W STAT 03/21/2014 2:27 PM Result s for this CONTRAST CDT procedure are i n the results section. CT HEAD W/O CONTRAST STAT 03/21/2014 2:17 PM R esults for this CDT procedure are i n the results section. INR AND PTT PANEL STAT 03/21/2014 2:04 PM CDT CBC WITH PLATELETS & STAT 03/21/2014 2:04 PM R esults for this DIFFERENTIAL CDT procedure are i n the results section. TSH WITH FREE T4 REFLEX Routine 03/21/2014 2:04 PM Acute ische elizabeth Results for this CDT stroke (H) procedure are i n the results section. TROPONIN I STAT 03/21/2014 2:04 PM Results f or this CDT procedure are i n the results section. T4 FREE Routine 03/21/2014 2:04 PM Acute ischemic Results for this CDT stroke (H) procedure are i n the results section. INR STAT 03/21/2014 2:04 PM Results f or this CDT procedure are i n the results section. PARTIAL THROMBOPLASTIN STAT 03/21/2014 2:04 PM Results for this TIME CDT procedure are i n the results section. LIPID REFLEX TO DIRECT Routine 03/21/2014 2:04 PM Acute ischem ic Results for this LDL PANEL CDT stroke (H) procedure are i n the results section. BASIC METABOLIC PANEL STAT 03/21/2014 2:04 PM Results for this CDT procedure are i n the results section. documented in this encounter Results (ABNORMAL) INR (03/27/2014 7:47 AM CDT) athologist Signature INR 2.09 (H) 0.86 - 1.14 [facility] Specimen Anatomical Collection Method Collection Time Receive d Time (Source) Location / / Volume Laterality Blood specimen 03/27/2014 7:47 AM 014 7:55 (specimen) CDT AM CDT Rachel Andrea MD LAB - BLOOD ORDERABLES Performing Organization Address City/State/ZIP Code Phon e Number M [facility] [address] [place] [address] [facility] Heparin Xa (10a) Level (03/27/2014 7:47 AM CDT) athologist Signature Heparin 10A 0.36 IU/mL [facility] Comment: Therapeutic Range: ?? UFH: ?? 0.15-0.35 IU/mL for low ?intensity dosing ?0.30-0.70 IU/mL for high ?intensity dosing ?? LMWH: ??1.00-2.00 IU/mL if 4-6 h ?post daily dosing ?0.60-1.00 IU/mL if 4-6 h ?post twice a day dosin g Specimen Anatomical Collection Method Collection Time Receive d Time (Source) Location / / Volume Laterality Blood specimen 03/27/2014 7:47 AM 7:55 (specimen) CDT AM CDT Stacey Bridges MD LAB - BLOOD ORDERABLES Performing Organization Address City/State/ZIP Code Phon e Number M [facility] [address] [place] [address] [phone] [facility] CBC with platelets (03/27/2014 7:47 AM CDT) P athologist Signature WBC 5.3 4.0 - 11.0 FANCY GAP 10e9/L [facility] RBC Count 4.76 4.4 - 5.9 FANCY GAP 10e12/L [facility] Hemoglobin 14.4 13.3 - FANCY GAP 17.7 g/dL [facility] Hematocrit 42.3 40.0 - FANCY GAP 53.0 % [facility] MCV 89 78 - 100 [facility] MCH 30.3 26.5 - FANCY GAP 33.0 pg [facility] MCHC 34.0 31.5 - FANCY GAP 36.5 g/dL [facility] RDW 12.5 10.0 - FANCY GAP 15.0 % [facility] Platelet Count 190 150 - 450 FANCY GAP 10e9/L [facility] Specimen Anatomical Collection Method Collection Time Receive d Time (Source) Location / / Volume Laterality Blood specimen 03/27/2014 7:47 AM 014 7:55 (specimen) CDT AM CDT Stacey Bridges MD LAB - BLOOD ORDERABLES Performing Organization Address City/State/ZIP Code Phon e Number M [facility] [address] [address] [facility] (ABNORMAL) INR (03/26/2014 7:45 AM CDT) P athologist Signature INR 1.72 (H) 0.86 - 1.14 [facility] Specimen Anatomical Collection Method Collection Time Receive d Time (Source) Location / / Volume Laterality Blood specimen 03/26/2014 7:45 AM 7:47 (specimen) CDT AM CDT Rachel Andrea MD LAB - BLOOD ORDERABLES Performing Organization Address City/[facility] Phon e Number Alyssa [facility] [address] [place] [address] [phone] [facility] Heparin Xa (10a) Level (03/26/2014 7:45 AM CDT) P athologist Signature Heparin 10A 0.30 IU/mL [facility] Comment: Therapeutic Range: ?? UFH: ?? 0.15-0.35 IU/mL for low ?intensity dosing ?0.30-0.70 IU/mL for high ?intensity dosing ?? LMWH: ??1.00-2.00 IU/mL if 4-6 h ?post daily dosing ?0.60-1.00 IU/mL if 4-6 h ?post twice a day dosin g Specimen Anatomical Collection Method Collection Time Receive d Time (Source) Location / / Volume Laterality Blood specimen 03/26/2014 7:45 AM 7:47 (specimen) CDT AM CDT Stacey Bridges MD LAB - BLOOD ORDERABLES Performing Organization Address City/State/ZIP Code Phon e Number M [facility] [address] [address] [facility] EP Report - HIM Scan (03/25/2014 4:21 PM CDT) Anatomical Region Laterality Modality Other Narrative This result has an attachment that is no t available. Naomie Boyd MD CV ELECTROPHYSIOLOGY ORDERAB LES Heparin 10a Level (03/25/2014 2:55 PM CDT) P athologist Signature Heparin 10A 0.31 IU/mL [facility] LAB Comment: Therapeutic Range: ?? UFH: ?? 0.15-0.35 IU/mL for low ?intensity dosing ?0.30-0.70 IU/mL for high ?intensity dosing ?? LMWH: ??1.00-2.00 IU/mL if 4-6 h ?post daily dosing ?0.60-1.00 IU/mL if 4-6 h ?post twice a day dosin g Specimen Anatomical Collection Method Collection Time Receive d Time (Source) Location / / Volume Laterality Blood specimen 03/25/2014 2:55 PM 014 3:01 (specimen) CDT PM CDT Rachel Andrea MD LAB - BLOOD ORDERABLES Performing Organization Address City/State/ZIP Code Phon e Number M [facility] [address] [address] [facility] Hemoglobin A1c (03/25/2014 11:25 AM CDT) P athologist Signature Hemoglobin A1C 5.9 4.3 - 6.0 [facility] LAB Specimen Anatomical Collection Method Collection Time Receive d Time (Source) Location / / Volume Laterality Blood specimen 03/25/2014 11:25 06/03/201 4 (specimen) AM CDT 11:30 AM CDT Fracisco Fox MD LAB - BLOOD ORDERABLES Performing Organization Address City/State/ZIP Code Phon e Number [facility] [address] [place] [address] [facility] Vitamin B12 (03/25/2014 11:25 AM CDT) athologist Signature Vitamin B12 341 >210 pg/mL [facility] Comment: Interp: [phone] = Normal Specimen Anatomical Collection Method Collection Time Receive d Time (Source) Location / / Volume Laterality Blood specimen 03/25/2014 11:25 4 (specimen) AM CDT 11:30 AM CDT Fracisco Fox MD LAB - BLOOD ORDERABLES Performing Organization Address City/[facility]/ZIP Code Phon e Number [address] LABS (ABNORMAL) Vitamin D Deficiency (03/25/2014 11:25 AM CDT) athologist Signature Vitamin D 29 (L) 30 - 75 [facility] Deficiency ug/L [facility] LABS Comment: Season, race, dietary intake, and treatm ent affect the concentration of 29-swozhvx-Nuwdhnb D. Values may decrea se during winter months and increase during summer months. Values less than 30 ug/L may indicate Vitamin D deficiency. Vitamin D determiniation is routinely p erformed by an immunoassay specific for 25 hydroxyvitamin D3. ??If an individua l is on vitamin D2 (ergocalciferol) supplementation, please specify 25 [place] v itamin D2 and D3 level determination by LCMSMS test VITD23. ??For questions, pl ease contact the laboratory at [phone]. Specimen Anatomical Collection Method Collection Time Receive d Time (Source) Location / / Volume Laterality Blood specimen 03/25/2014 11:25 4 (specimen) AM CDT 11:30 AM CDT Fracisco Fox MD LAB - BLOOD ORDERABLES Performing Organization Address City/[facility]/ZIP Code Phon e Number [facility] [address] LABS T3 Free (03/25/2014 11:25 AM CDT) P athologist Signature Free T3 2.8 2.3 - 4.2 [facility] pg/mL [place] [facility] Specimen Anatomical Collection Method Collection Time Receive d Time (Source) Location / / Volume Laterality Blood specimen 03/25/2014 11:25 201 4 (specimen) AM CDT 11:30 AM CDT Fracisco Fox MD LAB - BLOOD ORDERABLES Performing Organization Address City/[facility]/ZIP [facility] Phon e Number [facility] [address] [place] [address] [facility] LABS INR (03/25/2014 6:28 AM CDT) athologist Signature INR 1.14 0.86 - 1.14 [facility] LAB Specimen Anatomical Collection Method Collection Time Receive d Time (Source) Location / / Volume Laterality Blood specimen 03/25/2014 6:28 AM 014 6:49 (specimen) CDT AM CDT Rachel Andrea MD LAB - BLOOD ORDERABLES Performing Organization Address City/[facility] Phon e Number [facility] [address] [place] [address] HOSPITAL [facility] Heparin Xa (10a) Level (03/25/2014 6:28 AM CDT) [facility] gist Method Time Signature Heparin 10A <0.10 IU/mL [facility] Therapeutic Range: [facility] ?? UFH: ?? 0.15-0.35 IU/mL for low HOSPITAL LAB ?intensity dosing ?0.30-0.70 IU/mL for high ?intensity dosing ?? LMWH: ??1.00-2.00 IU/mL if 4-6 h ?post daily dosing ?0.60-1.00 IU/mL if 4-6 h ?post twice a day dosing Specimen Anatomical Collection Method Collection Time Receive d Time (Source) Location / / Volume Laterality Blood specimen 03/25/2014 6:28 AM 014 6:49 (specimen) CDT AM CDT Stacey Bridges MD LAB - BLOOD ORDERABLES Performing Organization Address City/State/ZIP Code Ana Shah [facility] [address] [address] [facility] LAB (ABNORMAL) Basic metabolic panel (03/25/2014 6:28 AM CDT) P athologist Signature Sodium 144 133 - 144 [place] mmol/L [facility] LAB Potassium 4.7 3.4 - 5.3 [place] mmol/L [facility] Chloride 109 94 - 109 [place] mmol/L [facility] Carbon Dioxide 27 20 - 32 [place] mmol/L [facility] Anion Gap 8 6 - 17 [place] mmol/L [facility] Glucose 119 (H) 60 - 99 [place] mg/dL [facility] Urea Nitrogen 13 7 - 30 [place] mg/dL [facility] Creatinine 1.03 0.66 - [facility] 1.25 mg/dL [facility] LAB GFR Estimate 72 >60 [place] mL/min/1.[address] LAB GFR Estimate If 88 >60 [place] Black mL/min/1.[address] LAB Calcium 8.3 (L) 8.5 - 10.4 [place] mg/dL [facility] Specimen Anatomical Collection Method Collection Time Receive d Time (Source) Location / / Volume Laterality Blood specimen 03/25/2014 6:28 AM 014 6:49 (specimen) CDT AM CDT Nadine Cool MD LAB - BLOOD ORDERABLES Performing Organization Address City/[facility]/ZIP Code [facility] dheeraj Shah [facility] [address] [address] [facility] LAB (ABNORMAL) Basic metabolic panel (03/24/2014 7:00 AM CDT) P athologist Signature Sodium 145 (H) 133 - 144 [place] mmol/L [facility] Potassium 4.7 3.4 - 5.3 [place] mmol/L [facility] Chloride 106 94 - 109 [place] mmol/L [facility] Carbon Dioxide 29 20 - 32 [place] mmol/L [facility] Anion Gap 10 6 - 17 [place] mmol/L [facility] Glucose 104 (H) 60 - 99 [place] mg/dL [facility] Urea Nitrogen 10 7 - 30 [place] mg/dL [facility] Creatinine 1.04 0.66 - [facility] 1.25 mg/dL [facility] LAB GFR Estimate 72 >60 [place] mL/min/1.[address] LAB GFR Estimate If 87 >60 [place] Black mL/min/1.[address] LAB Calcium 9.2 8.5 - 10.4 [place] mg/dL [facility] LAB Specimen Anatomical Collection Method Collection Time Receive d Time (Source) Location / / Volume Laterality Blood specimen 03/24/2014 7:00 AM 014 7:09 (specimen) CDT AM CDT Nadine Cool MD LAB - BLOOD ORDERABLES Performing Organization Address City/[facility]/ZIP Code Phon e Number [facility] [address] [place] [address] LAB INR (03/24/2014 7:00 AM CDT) P athologist Signature INR 1.01 0.86 - 1.14 [facility] LAB Specimen Anatomical Collection Method Collection Time Receive d Time (Source) Location / / Volume Laterality Blood specimen 03/24/2014 7:00 AM 014 7:08 (specimen) CDT AM CDT Rachel Andrea MD LAB - BLOOD ORDERABLES Performing Organization Address City/State/ZIP Code Phon e Number M [facility] [address] [place] [address] LAB Heparin Xa (10a) Level (03/24/2014 7:00 AM CDT) P athologist Signature Heparin 10A 0.23 IU/mL [facility] LAB Comment: Therapeutic Range: ?? UFH: ?? 0.15-0.35 IU/mL for low ?intensity dosing ?0.30-0.70 IU/mL for high ?intensity dosing ?? LMWH: ??1.00-2.00 IU/mL if 4-6 h ?post daily dosing ?0.60-1.00 IU/mL if 4-6 h ?post twice a day dosin g Specimen Anatomical Collection Method Collection Time Receive d Time (Source) Location / / Volume Laterality Blood specimen 03/24/2014 7:00 AM 014 7:08 (specimen) CDT AM CDT Stacey Bridges MD LAB - BLOOD ORDERABLES Performing Organization Address City/State/ZIP Code Phon e Number M [facility] [address] [place] [address] [facility] CBC with platelets (03/24/2014 7:00 AM CDT) athologist Signature WBC 5.0 4.0 - 11.0 [place] 10e9/L [facility] RBC Count 4.93 4.4 - 5.9 [place] 10e12/L [facility] LAB Hemoglobin 14.9 13.3 - [place] 17.7 g/dL [facility] Hematocrit 43.7 40.0 - [place] 53.0 % [facility] MCV 89 78 - 100 [facility] LAB MCH 30.2 26.5 - [place] 33.0 pg [facility] MCHC 34.1 31.5 - [place] 36.5 g/dL [facility] RDW 12.1 10.0 - [place] 15.0 % [facility] Platelet Count 197 150 - 450 [place] 10e9/L [facility] LAB Specimen Anatomical Collection Method Collection Time Receive d Time (Source) Location / / Volume Laterality Blood specimen 03/24/2014 7:00 AM 014 7:08 (specimen) CDT AM CDT Stacey Bridges MD LAB - BLOOD ORDERABLES Performing Organization Address City/[facility] Phon e Number Alyssa [facility] [address] [address] [place] [address] LAB INR (03/23/2014 8:23 AM CDT) P athologist Signature INR 0.93 0.86 - 1.14 [facility] Specimen Anatomical Collection Method Collection Time Receive d Time (Source) Location / / Volume Laterality Blood specimen 03/23/2014 8:23 AM 8:25 (specimen) CDT AM CDT Rachel Andrea MD LAB - BLOOD ORDERABLES Performing Organization Address [facility] dheeraj Shah [facility] [address] [place] [address] LAB Heparin Xa (10a) Level (03/23/2014 8:23 AM CDT) P athologist Signature Heparin 10A 0.32 IU/mL [facility] LAB Comment: Therapeutic Range: ?? UFH: ?? 0.15-0.35 IU/mL for low ?intensity dosing ?0.30-0.70 IU/mL for high ?intensity dosing ?? LMWH: ??1.00-2.00 IU/mL if 4-6 h ?post daily dosing ?0.60-1.00 IU/mL if 4-6 h ?post twice a day dosin g Specimen Anatomical Collection Method Collection Time Receive d Time (Source) Location / / Volume Laterality Blood specimen 03/23/2014 8:23 AM 014 8:25 (specimen) CDT AM CDT Stacey Bridges MD LAB - BLOOD ORDERABLES Performing Organization Address City/State/ZIP Code Phon e Number Alyssa [facility] [address] [address] [facility] Heparin 10a Level (03/22/2014 5:45 PM CDT) P athologist Signature Heparin 10A 0.25 IU/mL [facility] LAB Comment: Therapeutic Range: ?? UFH: ?? 0.15-0.35 IU/mL for low ?intensity dosing ?0.30-0.70 IU/mL for high ?intensity dosing ?? LMWH: ??1.00-2.00 IU/mL if 4-6 h ?post daily dosing ?0.60-1.00 IU/mL if 4-6 h ?post twice a day dosin g Specimen Anatomical Collection Method Collection Time Receive d Time (Source) Location / / Volume Laterality Blood specimen 03/22/2014 5:45 PM 014 5:48 (specimen) CDT PM CDT Stacey Bridges MD LAB - BLOOD ORDERABLES Performing Organization Address City/State/ZIP Code Phon e Billy Shah [facility] [address] [address] [facility] US Lower Extremity Venous Duplex Bilateral (03/22/2014 2:58 PM CDT) Anatomical Region Laterality Modality Vascular, Thigh, Leg Ultrasound Specimen (Source) Anatomical Location Collection Method / Collectio n Time Received Time / Laterality Volume Impressions 03/22/2014 3:46 PM CDT IMPRESSION: Negative bilateral lower extremity venous Doppler. HORACIO SAMANO MD Narrative 03/22/2014 3:46 PM CDT US LOWER EXTREMITY VENOUS DUPLEX BILATERAL 03/22/2014 2:58 PM HISTORY: Transient ischemic attack. Pain . TECHNIQUE: Bilateral lower extremity heena ous Doppler. Color and Doppler waveform analysis was performed as part of the exam. FINDINGS: Considering both lower extremi ties, the common femoral veins, femoral veins, popliteal veins, p osterior tibial veins, greater saphenous veins show normal compressibil ity, augmentation, and flow characteristics. There is no evidence fo r deep venous thrombosis. Procedure Note Horacio Samano MD - 03/22/2014Form atting of this note might be different from the original. US LOWER EXTREMITY VENOUS DUPLEX BILATER AL 03/22/2014 2:58 PM HISTORY: Transient ischemic attack. Pain . TECHNIQUE: Bilateral lower extremity heena ous Doppler. Color and Doppler waveform analysis was performed as part of the exam. FINDINGS: Considering both lower extremi ties, the common femoral veins, femoral veins, popliteal veins, p osterior tibial veins, greater saphenous veins show normal compressibil ity, augmentation, and flow characteristics. There is no evidence fo r deep venous thrombosis. IMPRESSION IMPRESSION: Negative bilateral lower ext remity venous Doppler. HORACIO SAMANO MD Paco Connors MD IMG ORDERABLES Echocardiogram with bubble study (03/22/2014 9:40 AM CDT) Anatomical Region Laterality Modality Echocardiography Specimen (Source) Anatomical Collection Method Collection Time Re ceived Time Location / / Volume Laterality 03/22/2014 9:08 AM CDT Narrative 03/22/2014 1:25 PM CDT Interpretation Summary Left ventricular systolic function is no rmal. The visual ejection fraction is estimated at 60-65%. A contrast injectio n (Bubble Study) was performed that was mildly positive. PatientHeight: 72 in PatientWeight: 254 lbs SystolicPressure: 143 mmHg DiastolicPressure: 72 mmHg HeartRate: 52 bpm BSA 2.4 m^2 Left Ventricle The left ventricle is normal in size. There is mild to moderate concentric lef t ventricular hypertrophy. Left ventricular systolic function is no rmal. The visual ejection fraction is estimate d at 60-65%. Grade II left ventricular diastolic dysf unction is noted. E by E prime ratio is between 8 and 15, which is indeterminate for assessment of left ventricular filling pressures. Regional wall motion abnormalities canno t be excluded due to limited visualization. Right Ventricle The right ventricle is normal size. The right ventricular systolic function is normal. Atria The left atrium is severely dilated. Right atrial size is normal. There is no color Doppler evidence of an atrial shunt. A contrast injection (Bubble Study) was performed that was mildly positive. A patent foramen ovale is suspected. Mitral Valve There is mild mitral annular calcificati on. There is physiologic mitral regurgitatio n. Tricuspid Valve There is trace tricuspid regurgitation. The right ventricular systolic pressure is approximated at 35 mmHg plus the right atrial pressure. Right ventricular systolic pressure is e levated, consistent with mild pulmonary hypertension. Aortic Valve The aortic valve is trileaflet. No aortic regurgitation is present. No aortic stenosis is present. Pulmonic Valve The pulmonic valve is not well seen, but is grossly normal. Vessels The aortic root is normal size. Pericardium There is no pericardial effusion. Rhythm The rhythm was normal sinus. Procedure Complete Portable Bubble Echo Adult. MMode 2D Measurements & Calculations IVSd: 1.4 cm LVIDd: 5.3 cm LVIDs: 3.2 cm LVPWd: 1.1 cm FS: 40 % LV mass(C)d: 286 grams Ao root diam: 3.1 cm LA dimension: 4.7 cm asc Aorta: 3.1 cm LA/Ao: 1.5 Doppler Measurements & Calculations MV E point: 77 cm/sec MV A point: 76 cm/sec MV E/A: 1.0 MV dec time: 0.30 sec TR Max irvin: 294 cm/sec TR Max P mmHg Interpreting Physician: ??Martha tejeda MD electronically signed on 03-22-2014 13:25:03 Procedure Note Martha Casarez, DO - 014 Interpretation Summary Left ventricular systolic function is no rmal. The visual ejection fraction is estimated at 60-65%. A contrast injectio n (Bubble Study) was performed that was mildly positive. PatientHeight: 72 in PatientWeight: 254 lbs SystolicPressure: 143 mmHg DiastolicPressure: 72 mmHg HeartRate: 52 bpm BSA 2.4 m^2 Left Ventricle The left ventricle is normal in size. There is mild to moderate concentric lef t ventricular hypertrophy. Left ventricular systolic function is no rmal. The visual ejection fraction is estimate d at 60-65%. Grade II left ventricular diastolic dysf unction is noted. E by E prime ratio is between 8 and 15, which is indeterminate for assessment of left ventricular filling pressures. Regional wall motion abnormalities canno t be excluded due to limited visualization. Right Ventricle The right ventricle is normal size. The right ventricular systolic function is normal. Atria The left atrium is severely dilated. Right atrial size is normal. There is no color Doppler evidence of an atrial shunt. A contrast injection (Bubble Study) was performed that was mildly positive. A patent foramen ovale is suspected. Mitral Valve There is mild mitral annular calcificati on. There is physiologic mitral regurgitatio n. Tricuspid Valve There is trace tricuspid regurgitation. The right ventricular systolic pressure is approximated at 35 mmHg plus the right atrial pressure. Right ventricular systolic pressure is e levated, consistent with mild pulmonary hypertension. Aortic Valve The aortic valve is trileaflet. No aortic regurgitation is present. No aortic stenosis is present. Pulmonic Valve The pulmonic valve is not well seen, but is grossly normal. Vessels The aortic root is normal size. Pericardium There is no pericardial effusion. Rhythm The rhythm was normal sinus. Procedure Complete Portable Bubble Echo Adult. MMode 2D Measurements & Calculations IVSd: 1.4 cm LVIDd: 5.3 cm LVIDs: 3.2 cm LVPWd: 1.1 cm FS: 40 % LV mass(C)d: 286 grams Ao root diam: 3.1 cm LA dimension: 4.7 cm asc Aorta: 3.1 cm LA/Ao: 1.5 Doppler Measurements & Calculations MV E point: 77 cm/sec MV A point: 76 cm/sec MV E/A: 1.0 MV dec time: 0.30 sec TR Max irvin: 294 cm/sec TR Max P mmHg Interpreting Physician: Martha Casarez MD electronically signed on 03-22-2014 13:25:03 Stacey Bridges MD CV ECHO ORDERABLES INR (03/22/2014 8:27 AM CDT) P athologist Signature INR 0.91 0.86 - 1.14 [facility] LAB Specimen Anatomical Collection Method Collection Time Receive d Time (Source) Location / / Volume Laterality 03/22/2014 8:27 AM 4 8:47 CDT AM CDT Stacey Bridges MD LAB - BLOOD ORDERABLES Performing Organization Address City/State/ZIP Code Phon e Number M [facility] [address] [address] [facility] Heparin 10a Level (03/22/2014 8:27 AM CDT) P athologist Signature Heparin 10A 0.47 IU/mL [facility] Comment: Therapeutic Range: ?? UFH: ?? 0.15-0.35 IU/mL for low ?intensity dosing ?0.30-0.70 IU/mL for high ?intensity dosing ?? LMWH: ??1.00-2.00 IU/mL if 4-6 h ?post daily dosing ?0.60-1.00 IU/mL if 4-6 h ?post twice a day dosin g Specimen Anatomical Collection Method Collection Time Receive d Time (Source) Location / / Volume Laterality Blood specimen 03/22/2014 8:27 AM 014 8:47 (specimen) CDT AM CDT Stacey Bridges MD LAB - BLOOD ORDERABLES Performing Organization Address City/State/ZIP Code Phon e Number M [facility] [address] [place] [address] [facility] Heparin 10a Level (03/22/2014 4:28 AM CDT) P athologist Signature Heparin 10A 0.26 IU/mL [facility] LAB Comment: Therapeutic Range: ?? UFH: ?? 0.15-0.35 IU/mL for low ?intensity dosing ?0.30-0.70 IU/mL for high ?intensity dosing ?? LMWH: ??1.00-2.00 IU/mL if 4-6 h ?post daily dosing ?0.60-1.00 IU/mL if 4-6 h ?post twice a day dosin g Specimen Anatomical Collection Method Collection Time Receive d Time (Source) Location / / Volume Laterality Blood specimen 03/22/2014 4:28 AM 014 3:23 (specimen) CDT PM CDT Li Pablo [facility] LAB - BLOOD ORDERABLES Performing Organization Address City/[facility]/ZIP Code Phon e Number M [facility] [address] [address] [facility] INR (03/22/2014 4:28 AM CDT) P athologist Signature INR 0.92 0.86 - 1.14 [facility] LAB Specimen Anatomical Collection Method Collection Time Receive d Time (Source) Location / / Volume Laterality Blood specimen 03/22/2014 4:28 AM 014 3:23 (specimen) CDT PM CDT Li Pablo [facility] LAB - BLOOD ORDERABLES Performing Organization Address City/State/ZIP Code Phon e Number M [facility] [address] [place] [address] [facility] Heparin 10a Level (03/22/2014 12:50 AM CDT) P athologist Signature Heparin 10A 0.12 IU/mL [facility] LAB Comment: Therapeutic Range: ?? UFH: ?? 0.15-0.35 IU/mL for low ?intensity dosing ?0.30-0.70 IU/mL for high ?intensity dosing ?? LMWH: ??1.00-2.00 IU/mL if 4-6 h ?post daily dosing ?0.60-1.00 IU/mL if 4-6 h ?post twice a day dosin g Specimen Anatomical Collection Method Collection Time Receive d Time (Source) Location / / Volume Laterality Blood specimen 03/22/2014 12:50 4 (specimen) AM CDT 12:53 AM CDT Stacey Bridges MD LAB - BLOOD ORDERABLES Performing Organization Address City/State/ZIP Code Phon e Number M [facility] [address], [place] [address] [facility] LAB (ABNORMAL) Glucose by meter (03/21/2014 11:14 PM CDT) P athologist Signature Glucose 138 (H) 60 - 99 POINT OF CARE mg/dL TEST, GLUCOSE Specimen Anatomical Collection Method Collection Time Receive d Time (Source) Location / / Volume Laterality 03/21/2014 11:14 03/21/2014 PM CDT 11:20 PM CDT Stacey Bridges MD LAB - BEAKER POCT Performing Organization Address City/State/ZIP Code Phon e Number [facility] POINT OF CARE TEST, GLUCOSE POINT OF CARE TEST, GLUCOSE MRI Brain w & w/o contrast (03/21/2014 10:01 PM CDT) Anatomical Region Laterality Modality Head, SUBRAD MR NEURO, UMP MR NEURO Magn etic Resonance Specimen (Source) Anatomical Location Collection Method / Collectio n Time Received Time / Laterality Volume Impressions 03/21/2014 10:41 PM CDT IMPRESSION: 1. No acute infarcts are identified. 2. 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 HIMA VELEZ MD Narrative 03/21/2014 10:41 PM CDT MR BRAIN W/O & W CONTRAST ??03/21/2014 10:01 PM HISTORY: ??Acute CVI, TECHNIQUE: Multiplanar, multisequence MR I of the brain without and with 12 mL Gadavist IV contrast material . COMPARISON: CT scan dated 03/21/2014. FINDINGS: ??There is a chronic infarct i n the inferior aspect of the left cerebellum.. ??There is no evidence of hemorrhage, mass, acute infarct, or anomaly. There are no gadoli nium enhancing lesions. ??The facial structures appear normal. ??The a rteries at the base of the brain and the dural venous sinuses appea r patent. ? Procedure Note Randy Velez MD - 03/21/2014For matting of this note might be different from the original. MR BRAIN W/O & W CONTRAST 03/21/2014 10:0 1 PM HISTORY: Acute CVI, TECHNIQUE: Multiplanar, multisequence MR I of the brain without and with 12 mL Gadavist IV contrast material . COMPARISON: CT scan dated 03/21/2014. FINDINGS: There is a chronic infarct in the inferior aspect of the left cerebellum.. There is no evidence o f hemorrhage, mass, acute infarct, or anomaly. There are no gadoli nium enhancing lesions. The facial structures appear normal. The art eries at the base of the brain and the dural venous sinuses appea r patent. IMPRESSION IMPRESSION: 1. No acute infarcts are identified. 2. 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 HIMA VELEZ MD Stacey Bridges MD IMG MRI ORDERABLES CBC with platelets (03/21/2014 7:52 PM CDT) athologist Signature WBC 6.0 4.0 - 11.0 [place] 10e9/L [facility] RBC Count 4.54 4.4 - 5.9 [place] 10e12/L [facility] Hemoglobin 13.8 13.3 - [place] 17.7 g/dL [facility] Hematocrit 40.4 40.0 - [place] 53.0 % [facility] MCV 89 78 - 100 [facility] MCH 30.4 26.5 - [place] 33.0 pg [facility] MCHC 34.2 31.5 - [place] 36.5 g/dL [facility] RDW 12.1 10.0 - [place] 15.0 % [facility] Platelet Count 175 150 - 450 [place] 10e9/L [facility] Specimen Anatomical Collection Method Collection Time Receive d Time (Source) Location / / Volume Laterality Blood specimen 03/21/2014 7:52 PM 014 7:56 (specimen) CDT PM CDT Stacey Bridges MD LAB - BLOOD ORDERABLES Performing Organization Address City/State/ZIP Code Phon e Number M [facility] [address] [place] [address] [facility] Glucose by meter (03/21/2014 5:21 PM CDT) P athologist Signature Glucose 87 60 - 99 POINT OF CARE mg/dL TEST, GLUCOSE Specimen Anatomical Collection Method Collection Time Receive d Time (Source) Location / / Volume Laterality 03/21/2014 5:21 PM 4 5:31 CDT PM CDT Stacey Bridges MD LAB - BEAKER POCT Performing Organization Address City/State/ZIP Code Phon e Number [facility] POINT OF CARE TEST, GLUCOSE POINT OF CARE TEST, GLUCOSE CT Head w Contrast (03/21/2014 2:30 PM CDT) Anatomical Region Laterality Modality Head, NEURO, SUBRAD CT NEURO, SUBRAD CT NEURO, UMP CT Computed Tomography NEURO Specimen (Source) Anatomical Location Collection Method / Collectio n Time Received Time / Laterality Volume Impressions 03/21/2014 3:21 PM CDT IMPRESSION: Normal CT perfusion of the brain. BILL RAY MD Narrative 03/21/2014 3:[address] BRAIN PERFUSION 03/21/2014 2:30 PM COMPARISON: None. HISTORY: Stroke. TECHNIQUE: Time sequential axial CT imag es of the head were acquired during the administration of intravenous contrast ( ?? ). CTA images of the [place] as well as color pe rfusion maps of the brain were created from this time sequential axial source data. FINDINGS: Other than altered perfusion a t the site of the chronic left cerebellar infarct, there are no focal o r regional perfusion defects in the brain. Procedure Note Bill Ray MD - 03/21/2014Forma tting of this note might be different from the original. CT BRAIN PERFUSION 03/21/2014 2:30 PM COMPARISON: None. HISTORY: Stroke. TECHNIQUE: Time sequential axial CT imag es of the head were acquired during the administration of intravenous contrast ( ). CTA images of the [place] as well as color pe rfusion maps of the brain were created from this time sequential axial source data. FINDINGS: Other than altered perfusion a t the site of the chronic left cerebellar infarct, there are no focal o r regional perfusion defects in the brain. IMPRESSION IMPRESSION: Normal CT perfusion of the b rain. BILL RAY MD Buddy West MD IMG CT ORDERABLES CT Head Neck Angio w/o & w Contrast (03/21/2014 2:27 PM CDT) Anatomical Region Laterality Modality Head, SUBRAD CT NEURO, SUBRAD CT NEURO, P CT NEURO Computed Tomography Specimen (Source) Anatomical Location Collection Method / Collectio n Time Received Time / Laterality Volume Impressions 03/21/2014 4:23 PM CDT IMPRESSION: 1. Calcified atherosclerotic plaque at t he origins of the left vertebral and bilateral internal carotid arteries that does not result in any significant narrowing. Otherwise, normal neck CTA. No change from the comparison study. 2. Calcified atherosclerotic plaque of t he distal left vertebral artery and distal internal carotid arter ies on both sides that result in at least moderate narrowing of the di stal left vertebral artery and mild narrowing of the distal internal ca rotid arteries on both sides again noted without change. Otherwise, n ormal [place] CTA. No change from the comparison study. BILL RAY MD Narrative 03/21/2014 4:[address] ANGIOGRAM OF THE HEAD AND NECK WITHOUT AND WITH CONTRAST ??03/21/2014 2:27 PM COMPARISON: CT angiogram of the head and neck 01/03/2012 HISTORY: Stroke. TECHNIQUE: ??Precontrast localizing scan s were followed by CT angiography with an injection of 120mL I sovue-370 nonionic contrast material IV with scans through the head and neck. ??Images were transferred to a separate 3-D workstatio n where multiplanar reformations and 3-D images were created . ??Estimates of carotid stenoses are made relative to the distal internal carotid artery diameters except as noted. ?? FINDINGS: Neck CTA: The bilateral common carotid a rteries remain widely patent. Calcified atherosclerotic plaque at the origins of the internal carotid arteries on both sides again not ed resulting in only minimal narrowing of the origins of the cervical internal carotid arteries. The cervical internal carotid arteries b ilaterally are otherwise widely patent. Calcified atherosclerotic plaque at the origin of the left vertebral artery again noted. The c ervical vertebral arteries bilaterally are patent without stenosis. There is moderate atherosclerotic narrowing of the intradu ral distal left vertebral artery. The intradural right vertebral a rtery is patent without stenosis. [place] CTA: Calcified atherosc lerotic plaque of the distal internal carotid arteries on both sides again noted resulting in at least mild narrowing bilaterally. The ba silar, bilateral anterior cerebral, bilateral middle cerebral and bilateral posterior cervical arteries are patent and unremarkable. Procedure Note Bill Ray MD - 03/21/2014Forma tting of this note might be different from the original. CT ANGIOGRAM OF THE HEAD AND NECK WITHOU T AND WITH CONTRAST 03/21/2014 2:27 PM COMPARISON: CT angiogram of the head and neck 01/03/2012 HISTORY: Stroke. TECHNIQUE: Precontrast localizing scans were followed by CT angiography with an injection of 120mL I sovue-370 nonionic contrast material IV with scans through the head and neck. Images were transferred to a separate 3-D workstatio n where multiplanar reformations and 3-D images were created . Estimates of carotid stenoses are made relative to the distal internal carotid artery diameters except as noted. FINDINGS: Neck CTA: The bilateral common carotid a rteries remain widely patent. Calcified atherosclerotic plaque at the origins of the internal carotid arteries on both sides again not ed resulting in only minimal narrowing of the origins of the cervical internal carotid arteries. The cervical internal carotid arteries b ilaterally are otherwise widely patent. Calcified atherosclerotic plaque at the origin of the left vertebral artery again noted. The c ervical vertebral arteries bilaterally are patent without stenosis. There is moderate atherosclerotic narrowing of the intradu ral distal left vertebral artery. The intradural right vertebral a rtery is patent without stenosis. [place] CTA: Calcified atherosc lerotic plaque of the distal internal carotid arteries on both sides again noted resulting in at least mild narrowing bilaterally. The ba silar, bilateral anterior cerebral, bilateral middle cerebral and bilateral posterior cervical arteries are patent and unremarkable. IMPRESSION IMPRESSION: 1. Calcified atherosclerotic plaque at t he origins of the left vertebral and bilateral internal carotid arteries that does not result in any significant narrowing. Otherwise, normal neck CTA. No change from the comparison study. 2. Calcified atherosclerotic plaque of t he distal left vertebral artery and distal internal carotid arter ies on both sides that result in at least moderate narrowing of the di stal left vertebral artery and mild narrowing of the distal internal ca rotid arteries on both sides again noted without change. Otherwise, n ormal [place] CTA. No change from the comparison study. BILL RAY MD Buddy West MD IMG CT ORDERABLES CT Head w/o Contrast (03/21/2014 2:17 PM CDT) Anatomical Region Laterality Modality Head, SUBRAD CT NEURO, SUBRAD CT NEURO, P CT NEURO Computed Tomography Specimen (Source) Anatomical Location Collection Method / Collectio n Time Received Time / Laterality Volume Impressions 03/21/2014 3:21 PM CDT IMPRESSION: Chronic left cerebellar infarct again noted. Diffuse cerebral volume loss and cerebral white matter changes consistent with chronic small vessel ischemic disease. N o evidence for acute intracranial pathology. ? BILL RAY MD Narrative 03/21/2014 3:[address] OF THE HEAD WITHOUT CONTRAST 03/21/2014 2:17 PM COMPARISON: Head CT 01/03/2012 HISTORY: Stroke. TECHNIQUE: [address] images of the head were acquired without IV contrast material. FINDINGS: A chronic left cerebellar infa rct is again noted. There is mild diffuse cerebral volume loss. There are subtle patchy areas of decreased density in the cerebral white matter bilaterally that are consistent with sequela of chronic small vessel ischemic disease. ? The ventricles and basal cisterns are wi thin normal limits in configuration given the degree of cerebr al volume loss. ??There is no midline shift. There are no extra-axial fluid collections. ? No intracranial hemorrhage, mass or rece nt infarct. The visualized paranasal sinuses are wel l-aerated. There is no mastoiditis. There are no fractures of t he visualized bones. ? Procedure Note Bill Ray MD - 03/21/2014Forma tting of this note might be different from the original. CT OF THE HEAD WITHOUT CONTRAST 4 2:17 PM COMPARISON: Head CT 01/03/2012 HISTORY: Stroke. TECHNIQUE: [address] images of the head were acquired without IV contrast material. FINDINGS: A chronic left cerebellar infa rct is again noted. There is mild diffuse cerebral volume loss. There are subtle patchy areas of decreased density in the cerebral white matter bilaterally that are consistent with sequela of chronic small vessel ischemic disease. The ventricles and basal cisterns are wi thin normal limits in configuration given the degree of cerebr al volume loss. There is no midline shift. There are no extra-axial fluid collections. No intracranial hemorrhage, mass or rece nt infarct. The visualized paranasal sinuses are wel l-aerated. There is no mastoiditis. There are no fractures of t he visualized bones. IMPRESSION IMPRESSION: Chronic left cerebellar infa rct again noted. Diffuse cerebral volume loss and cerebral white matter changes consistent with chronic small vessel ischemic disease. N o evidence for acute intracranial pathology. BILL RAY MD Buddy West MD IMG CT ORDERABLES T4 free (03/21/2014 2:04 PM CDT) athologist Signature T4 Free 1.18 0.70 - 1.85 [place] ng/dL [facility] Specimen Anatomical Collection Method Collection Time Receive d Time (Source) Location / / Volume Laterality 03/21/2014 2:04 PM 4 2:12 CDT PM CDT Buddy West MD LAB - BLOOD ORDERABLES Performing Organization Address City/State/ZIP Code Phon e Number M [facility] [address] [place] [address] [phone] [facility] (ABNORMAL) TSH with free T4 reflex (03/21/2014 2:04 PM CDT) athologist Signature TSH 0.36 (L) 0.4 - 5.0 [place] mU/L [facility] Specimen Anatomical Collection Method Collection Time Receive d Time (Source) Location / / Volume Laterality 03/21/2014 2:04 PM 4 2:12 CDT PM CDT Buddy West MD LAB - BLOOD ORDERABLES Performing Organization Address City/State/ZIP Code Phon e Number M [facility] [address] [place] [address] [facility] (ABNORMAL) Lipid panel reflex to direct LDL (03/21/2014 2:04 PM CDT) athologist Signature Cholesterol 117 <200 mg/dL [facility] Comment: LDL Cholesterol is the primary guide to therapy. The NCEP recommends further evaluation of: patients with cholesterol greater than 200 mg/dL if additional risk facto rs are present, cholesterol greater than 240 mg/dL, triglycerides greater than 1 50 mg/dL, or HDL less than 40 mg/dL. Triglycerides 116 0 - 150 mg/dL [facility] HDL Cholesterol 38 (L) >40 mg/dL [facility] LDL Cholesterol Calculated 56 0 - 129 mg/dL [facility] Comment: LDL Cholesterol is the primary guide to therapy: LDL-cholesterol goal in high risk patients is <100 mg/dL and in very high risk patients is <70 mg/dL. VLDL-Cholesterol 23 0 - 30 mg/dL [facility] Cholesterol/HDL Ratio 3.1 0.0 - 5.0 [facility] Specimen Anatomical Collection Method Collection Time Receive d Time (Source) Location / / Volume Laterality 03/21/2014 2:04 PM 4 2:12 CDT PM CDT Buddy West MD LAB - BLOOD ORDERABLES Performing Organization Address City/[facility]/ZIP Code Phon e Number [facility] [address] [place] [address] [facility] Partial thromboplastin time (03/21/2014 2:04 PM CDT) P athologist Signature PTT 30 22 - 37 sec [facility] Specimen Anatomical Collection Method Collection Time Receive d Time (Source) Location / / Volume Laterality 03/21/2014 2:04 PM 4 2:12 CDT PM CDT Buddy West MD LAB - BLOOD ORDERABLES Performing Organization Address City/[facility]/ZIP Code Phon e Number [facility] [address] [place] [address] [facility] INR (03/21/2014 2:04 PM CDT) P athologist Signature INR 0.97 0.86 - 1.14 [facility] Specimen Anatomical Collection Method Collection Time Receive d Time (Source) Location / / Volume Laterality 03/21/2014 2:04 PM 4 2:12 CDT PM CDT Buddy West MD LAB - BLOOD ORDERABLES Performing Organization Address City/[facility]/ZIP Code Phon e Number M [facility] [address] [place] [address] [phone] [facility] Troponin I (03/21/2014 2:04 PM CDT) P athologist Signature Troponin I ES <0.012 0.000 - [place]AP 0.034 ug/L [facility] Specimen Anatomical Collection Method Collection Time Receive d Time (Source) Location / / Volume Laterality 03/21/2014 2:04 PM 4 2:12 CDT PM CDT Buddy West MD LAB - BLOOD ORDERABLES Performing Organization Address City/State/ZIP Code Phon e Number M [facility] [address] [place] [address] [facility] CBC with platelets differential (03/21/2014 2:04 PM CDT) Patholo gist Method Time Signature WBC 6.3 4.0 - [place]AP 11.0 [facility] 10e9/L [facility] RBC Count 4.62 4.4 - 5.9 [place] 10e12/L [facility] Hemoglobin 14.0 13.3 - [place] 17.7 g/dL [facility] Hematocrit 41.0 40.0 - [place]AP 53.0 % [facility] MCV 89 78 - 100 [place] fl [facility] MCH 30.3 26.5 - [place]AP 33.0 pg [facility] MCHC 34.1 31.5 - [place] 36.5 g/dL [facility] RDW 12.2 10.0 - [place]AP 15.0 % [facility] Platelet Count 184 150 - 450 [place] 10e9/L [facility] Diff Method Automated [place] GAP Method [facility] % Neutrophils 61.5 % [facility] % Lymphocytes 24.1 % [facility] % Monocytes 10.2 % [facility] % Eosinophils 2.4 % [facility] % Basophils 1.3 % [facility] % Immature 0.5 % [place] Granulocytes [facility] Absolute 3.9 1.6 - 8.3 [place] Neutrophil 10e9/L [facility] Absolute 1.5 0.8 - 5.3 [place] Lymphocytes 10e9/L [facility] Absolute 0.6 0.0 - 1.3 [place] Monocytes 10e9/L [facility] Absolute 0.2 0.0 - 0.7 [facility] Eosinophils 10e9/L [facility] Absolute 0.1 0.0 - 0.2 [place] Basophils 10e9/L [facility] Abs Immature 0.0 0 - 0.4 [place] Granulocytes 10e9/L [facility] Specimen Anatomical Collection Method Collection Time Receive d Time (Source) Location / / Volume Laterality 03/21/2014 2:04 PM 4 2:12 CDT PM CDT Buddy West MD LAB - BLOOD ORDERABLES Performing Organization Address City/State/ZIP Code Phon e Number M [facility] [address] [place] [place] [address] [facility] (ABNORMAL) Basic metabolic panel (03/21/2014 2:04 PM CDT) athologist Signature Sodium 142 133 - 144 [place] mmol/L [facility] Potassium 4.5 3.4 - 5.3 [place] mmol/L [facility] Chloride 105 94 - 109 [place] mmol/L [facility] Carbon Dioxide 28 20 - 32 [place] mmol/L [facility] Anion Gap 9 6 - 17 [place] mmol/L [facility] Glucose 116 (H) 60 - 99 [place] mg/dL [facility] Urea Nitrogen 18 7 - 30 [place] mg/dL [facility] Creatinine 1.21 0.66 - [facility] 1.25 mg/dL [facility] GFR Estimate 60 (L) >60 [place] mL/min/1.[address] LAB GFR Estimate If 73 >60 [place] Black mL/min/1.[address] LAB Calcium 9.0 8.5 - 10.4 [place] mg/dL [facility] Specimen Anatomical Collection Method Collection Time Receive d Time (Source) Location / / Volume Laterality 03/21/2014 2:04 PM 4 2:12 CDT PM CDT Buddy West MD LAB - BLOOD ORDERABLES Performing Organization Address City/State/ZIP Code Phon e Number M [facility] [address] [place], [place] [address] [phone] [facility] documented in this encounter Visit Diagnoses Diagnosis TIA on medication - Primary Unspecified transient cerebral ischemia Acute ischemic stroke (H) Unspecified cerebral artery occlusion wi th cerebral infarction HTN (hypertension) Unspecified essential hypertension Vitamin B12 deficiency (non anaemic) Other B-complex deficiencies documented in this encounter Administered Medications Inactive Administered Medications - up to 3 most recent administrations Medication Order MAR Action Action Date Dose Rate Site 0.9 % sodium chloride IV Rate/Dose Verify 03/22/2014 8:59 AM 1,000 mLs 100 mL/hr solution CDT at 100 mL/hr, Intravenous, CONTINUOUS, D/c after 2 liters., Starting on Mon03/21/14 at 1730, Until Mon03/22/14 at 1700 New Bag 03/22/2014 2:32 AM CDT 1,000 mLs 100 mL/hr Rate/Dose Verify 03/21/2014 8:25 PM CDT 1,000 mLs 100 mL/hr 0.9 % sodium chloride IV New Bag 03/26/2014 11:58 PM CDT 1,000 mLs 50 mL/hr solution at 50 mL/hr, Intravenous, CONTINUOUS, Starting on Mon03/23/14 at 1930, Until Mon03/27/14 at 1636 Rate/Dose Verify 03/26/2014 3:46 PM CDT 1,000 mLs 50 mL/hr Rate/Dose Verify 03/26/2014 9:00 AM CDT 1,000 mLs 50 mL/hr acetaminophen (TYLENOL) tablet 650 mg Given 03/26/2014 10:01 PM CDT 650 mg 650 mg, Oral, EVERY 4 HOURS PRN, mild pain, Starting on Mon03/21/14 at 1759, Alternate ibuprofen (if ordered) with acetaminophen. Not to exceed 4 grams/day. Maximum acetaminophen dose from all sources = 75 mg/kg/day not to exceed 4 grams/day. Given 03/25/2014 5:27 PM CDT 650 mg Given 03/25/2014 12:10 AM CDT 650 mg amLODIPine (NORVASC) tablet 5 mg Given 03/27/2014 11:43 AM CDT 5 mg 5 mg, Oral, DAILY, First dose on Mon03/27/14 at 1045, Hold for SBP < 100 aspirin tablet 325 mg Given 03/21/2014 2:53 PM CDT 325 mg 325 mg, Oral, ONCE, On Mon03/21/14 at 1500, For 1 dose atenolol (TENORMIN) tablet 25 mg Given 03/25/2014 8:53 PM CDT 25 mg 25 mg, Oral, EVERY EVENING, First dose on Mon03/25/14 at 2000, For Adults, Hold if HR < 60, SBP < 100 atenolol (TENORMIN) tablet 50 mg Given 03/26/2014 8:05 AM CDT 50 mg 50 mg, Oral, EVERY MORNING, First dose on Mon03/26/14 at 0900, For Adults, Hold if HR < 60, SBP < 100 ceFAZolin (ANCEF) 1 g vial to attach to IVPB New Bag 03/25/2014 3:50 PM CDT 2 g STAT, 2 g, Intravenous, ONCE, On Mon03/25/14 at 1615, For 1 dose, Indications: Perioperative Pharmacoprophylaxis cyanocobalamin SL tablet 1,000 mcg Given 03/27/2014 8:37 AM CDT 1,000 mcg 1,000 mcg, Sublingual, DAILY, First dose on Mon03/26/14 at 1115 Given 03/26/2014 1:28 PM CDT 1,000 mcg fentaNYL (SUBLIMAZE) injection 25-50 mcg Given 03/25/2014 4:01 PM CDT 50 mcg 25-50 mcg, Intravenous, EVERY 2 MIN PRN, severe pain, when verbally ordered by the prescriber during the procedure, Starting on Mon03/25/14 at 1549, Doses can be exceeded under direct oversight of patient by physician., Cardiac Intra-procedure Given 03/25/2014 3:50 PM CDT 50 mcg gabapentin (NEURONTIN) capsule 300 mg Given 03/27/2014 8:37 AM CDT 300 mg 300 mg, Oral, EVERY MORNING, First dose on Mon03/22/14 at 0900 Given 03/26/2014 8:04 AM CDT 300 mg Given 03/25/2014 8:42 AM CDT 300 mg gabapentin (NEURONTIN) tablet 600 mg Given 03/26/2014 9:12 PM CDT 600 mg 600 mg, Oral, AT BEDTIME, First dose on Mon03/21/14 at 2200 Given 03/25/2014 9:25 PM CDT 600 mg Given 03/24/2014 9:06 PM CDT 600 mg gadobutrol (GADAVIST) injection 12 mL Given 03/21/2014 9:45 PM CDT 12 mLs 12 mL, Intravenous, ONCE, On Mon03/21/14 at 2145, For 1 dose, Supplied by, and administered by MRI. heparin drip 25,000 Rate/Dose Verify 03/21/2014 8:25 1,150 Units/hr 1 1.5 mL/hr units in 0.45% NaCl 250 PM CDT mL Intravenous, at 11.5 mL/hr, CONTINUOUS, Starting on Mon03/21/14 at 1915, Obtain baseline Heparin Xa level then start drip Instructions: start drip at 1150 units/hr (no bolus) Obtain next Hep Xa: 6 hours after start of heparin Goal Hep Xa: 0.15-0.35 Platelet counts q 3 days while on heparin New Bag 03/21/2014 7:09 PM CDT 1,150 Units/hr 11.5 mL/hr heparin drip 25,000 Rate/Dose Change 03/22/2014 2:21 1,250 Units/hr 1 2.5 mL/hr units in 0.45% NaCl 250 AM CDT mL Intravenous, at 12.5 mL/hr, CONTINUOUS, Starting on 03/22/14 at 0215, FOR HEPARIN 10A LEVEL OF 0.12, INCREASE DRIP TO 1250 UNITS/HR AND RECHECK IN 6 HRS Goal Hep Xa: 0.15-0.35 Platelet counts q 3 days while on heparin heparin drip 25,000 units in New Bag 03/22/2014 3:25 PM 1,050 Units/hr 10.5 mL/hr 0.45% NaCl 250 mL CDT Intravenous, at 10.5 mL/hr, CONTINUOUS, Starting on Mon03/22/14 at 0915, HEPARIN 10A LEVEL OF 0.47 03/22 830 Decrease rate to 1050 units/hr Recheck Xa in 6 hours Goal Hep Xa: 0.15-0.35 Platelet counts q 3 days while on heparin Rate/Dose Change 03/22/2014 9:19 AM CDT 1,050 Units/hr 10.5 mL/hr heparin drip 25,000 Rate/Dose Verify 03/23/2014 12:34 1,050 Units/hr 10.5 mL/hr units in 0.45% NaCl 250 AM CDT mL Intravenous, at 10.5 mL/hr, CONTINUOUS, Starting on 03/22/14 at 1845, Heparin 10a(Xa) = 0.25 03/22/2014 Goal level of: 0.15-0.35 IU/mL Heparin instructions: Continue rate of 1050 units/hr Recheck next heparin 10a(Xa): in the AM. Heparin dosed per [facility] Protocol. Monitor platelets every three days while on anticoagulation therapy. Rate/Dose Verify 03/22/2014 6:51 PM CDT 1,050 Units/hr 10.5 mL/hr heparin drip 25,000 units in New Bag 03/23/2014 3:11 PM 1,050 Units/hr 10.5 mL/hr 0.45% NaCl 250 mL CDT Intravenous, at 10.5 mL/hr, CONTINUOUS, Starting on Mon03/23/14 at 0915, Heparin 10a(Xa) = 0.32 03/23/2014 Goal level of: 0.15-0.35 IU/mL Heparin instructions: Continue rate of 1050 units/hr Recheck next heparin 10a(Xa): in the AM 03/24/14 Heparin dosed per [facility] Protocol. Monitor platelets every three days while on anticoagulation therapy. Rate/Dose Verify 03/23/2014 9:25 AM CDT 1,050 Units/hr 10.5 mL/hr heparin drip 25,000 Rate/Dose Verify 03/25/2014 7:30 1,050 Units/hr 1 0.5 mL/hr units in 0.45% NaCl 250 AM CDT mL Intravenous, at 10.5 mL/hr, CONTINUOUS, Starting on 03/24/14 at 0815, Heparin 10a(Xa) = 0.23 at 0700 03/24/2014 Goal level of: 0.15-0.35 IU/mL Heparin instructions: Continue rate of 1050 units/hr Recheck next heparin 10a(Xa): in the AM 03/25/14 Heparin dosed per [facility] Protocol. Monitor platelets every three days while on anticoagulation therapy. New Bag 03/24/2014 4:17 PM CDT 1,050 Units/hr 10.5 mL/hr Rate/Dose Verify 03/24/2014 12:39 PM CDT 1,050 Units/hr 10.5 mL/hr heparin drip 25,000 units in New Bag 03/25/2014 2:18 PM 1,350 Units/hr 13.5 mL/hr 0.45% NaCl 250 mL CDT Intravenous, at 13.5 mL/hr, CONTINUOUS, Starting on Mon03/25/14 at 0800, Heparin 10a(Xa) = < 0.1 63 am lab Goal level of: 0.15-0.35 IU/mL Heparin instructions: increase heparin infusion to 1350 units/hr Recheck next heparin 10a(Xa): 6 hr after rate chg Heparin dosed per [facility] Protocol. Monitor platelets every three days while on anticoagulation therapy. New Bag 03/25/2014 8:18 AM CDT 1,350 Units/hr 13.5 mL/hr heparin drip 25,000 Rate/Dose Verify 03/25/2014 7:33 1,350 Units/hr 1 3.5 mL/hr units in 0.45% NaCl 250 PM CDT mL Intravenous, at 13.5 mL/hr, CONTINUOUS, Starting on Mon03/25/14 at 1600, Heparin 10a(Xa) = 0.31 1455 03/25 Goal level of: 0.15-0.35 IU/mL Heparin instructions: Continue heparin infusion at 1350 units/hr Recheck next heparin 10a(Xa): AM 03/26 Heparin dosed per [facility] Protocol. Monitor platelets every three days while on anticoagulation therapy. Rate/Dose Verify 03/25/2014 5:48 PM CDT 1,350 Units/hr 13.5 mL/hr Rate/Dose Verify 03/25/2014 5:47 PM CDT 1,350 Units/hr 13.5 mL/hr heparin drip 25,000 units in New Bag 03/27/2014 5:50 AM 1,350 Units/hr 13.5 mL/hr 0.45% NaCl 250 mL CDT Intravenous, at 13.5 mL/hr, CONTINUOUS, Starting on Mon03/26/14 at 0900, Heparin 10a(Xa) = 0.30 Goal level of: 0.15-0.35 IU/mL Heparin instructions: Continue heparin infusion at 1350 units/hr Recheck next heparin 10a(Xa): AM 03/27 Heparin dosed per [facility] Protocol. Monitor platelets every three days while on anticoagulation therapy. Rate/Dose Verify 03/26/2014 11:58 PM CDT 1,350 Units/hr 13.5 mL/hr Rate/Dose Verify 03/26/2014 3:46 PM CDT 1,350 Units/hr 13.5 mL/hr iopamidol (ISOVUE-370) 76% solution 120 mL Given 03/21/2014 2:15 PM CDT 120 mLs 120 mL, Intravenous, ONCE, On Mon03/21/14 at 1415, For 1 dose lisinopril (PRINIVIL,ZESTRIL) tablet 30 mg Given 03/27/2014 8:37 AM CDT 30 mg 30 mg, Oral, 2 TIMES DAILY, First dose on Mon03/25/14 at 2100, Hold for SBP < 100 Given 03/26/2014 9:12 PM CDT 30 mg Given 03/26/2014 8:04 AM CDT 30 mg magnesium oxide (MAG-OX) tablet 400 mg Given 03/27/2014 8:37 AM CDT 400 mg 400 mg, Oral, EVERY MORNING, First dose on Mon03/22/14 at 0900, Therapeutic interchange for Magnesium oxide 500 mg. Given 03/26/2014 8:04 AM CDT 400 mg Given 03/25/2014 8:42 AM CDT 400 mg midazolam (VERSED) injection 0.5-2 mg Given 03/25/2014 4:02 PM CDT 1 mg 0.5-2 mg, Intravenous, EVERY 2 MIN PRN, sedation, when verbally ordered by the prescriber during the procedure, Starting on Mon03/25/14 at 1549, Doses can be exceeded under direct oversight of patient by physician., Cardiac Intra-procedure Given 03/25/2014 3:50 PM CDT 1 mg pregabalin (LYRICA) capsule 75 mg Given 03/26/2014 9:12 PM CDT 75 mg 75 mg, Oral, AT BEDTIME, First dose on Mon03/21/14 at 2200 Given 03/25/2014 9:24 PM CDT 75 mg Given 03/24/2014 9:06 PM CDT 75 mg rOPINIRole (REQUIP) tablet 1 mg Given 03/26/2014 9:12 PM CDT 1 mg 1 mg, Oral, AT BEDTIME, First dose on Mon03/21/14 at 2200 Given 03/25/2014 9:24 PM CDT 1 mg Given 03/24/2014 9:07 PM CDT 1 mg simvastatin (ZOCOR) tablet 20 mg Given 03/26/2014 9:12 PM CDT 20 mg 20 mg, Oral, AT BEDTIME, First dose on Mon03/21/14 at 2200 Given 03/25/2014 9:24 PM CDT 20 mg Given 03/24/2014 9:06 PM CDT 20 mg sodium chloride (PF) 0.9% PF flush 10 mL Given 03/22/2014 10:42 AM CDT 10 mLs 10 mL, Intravenous, ONCE, On 03/22/14 at 1045, For 1 dose sodium chloride (PF) 0.9% PF flush 10 mL Given 03/22/2014 10:42 AM CDT 10 mLs 10 mL, Intravenous, ONCE, On 03/22/14 at 1045, For 1 dose sodium chloride (PF) 0.9% PF flush 3 mL Given 03/23/2014 8:03 PM CDT 3 mLs 3 mL, Intravenous, EVERY 8 HOURS, First dose on Mon03/21/14 at 1815, And Q1H PRN, to lock peripheral IV dormant line. Given 03/23/2014 12:27 PM CDT 3 mLs Given 03/22/2014 2:23 AM CDT 3 mLs sodium chloride 0.9 % for CT scan flush dose Given 2:28 PM CDT 80 mLs 100 mL Intravenous, 100 mL, ONCE, On Mon03/21/14 at 1415, For 1 dose warfarin (COUMADIN) tablet 10 mg Given 03/24/2014 5:54 PM CDT 10 mg 10 mg, Oral, ONCE AT 6PM, On Mon03/24/14 at 1800, For 1 dose warfarin (COUMADIN) tablet 10 mg Given 03/26/2014 5:18 PM CDT 10 mg 10 mg, Oral, ONCE AT 6PM, On Mon03/26/14 at 1800, For 1 dose warfarin (COUMADIN) tablet 12.5 mg Given 03/25/2014 4:52 PM CDT 12.5 mg 12.5 mg, Oral, ONCE AT 6PM, On Mon03/25/14 at 1800, For 1 dose warfarin (COUMADIN) tablet 7.5 mg Given 03/22/2014 5:55 PM CDT 7.5 mg 7.5 mg, Oral, ONCE AT 6PM, On 03/22/14 at 1800, For 1 dose warfarin (COUMADIN) tablet 7.5 mg Given 03/23/2014 5:53 PM CDT 7.5 mg 7.5 mg, Oral, ONCE AT 6PM, On 03/23/14 at 1800, For 1 dose documented in this encounter Active and Recently Administered Medications Times are shown in CDT. Scheduled Medication Order 03/25/2014 03/26/2014 03/27/2014 amLODIPine (NORVASC) tablet 5 mg 1143 (Given - Provider: Diana Chaudhari, PIO) 5 mg, Oral, DAILY, First dose on Mayi 03/27/14 at 1045, Hold for SB P < 100 atenolol (TENORMIN) tablet 25 mg (CANCELED) 2052 (Give n - Provider: Chari Miranda, PIO) 195 (Not Given - Provider: Bernarda Campo, PIO - Reason: Contraindicated) 25 mg, Oral, EVERY EVENING, First dose o n 03/25/14 at 2000, For Adults, Hold if HR < 60, SBP < 100 atenolol (TENORMIN) tablet 50 mg (CANCELED) 0805 (Given - Provider: Lorenza Mason, PIO) 0837 (Not Given - Provider: Diana calderón, PIO - Reason: Order parameters not met - Comment: HR <60) 50 mg, Oral, EVERY MORNING, First dose o n Mon03/26/14 at 0900, For Adults, Hold if HR < 60, SBP < 100 ceFAZolin (ANCEF) 1 g vial to attach to IVPB (COMPLETE D) 1550 (New Bag - Provider: Lucie Mansfield, PIO) 2 g, Intravenous, ONCE, 03/25/14 at 16 15, For 1 dose, Indications: Surgical Prophylaxis cyanocobalamin SL tablet 1,000 mcg 1328 (Given - Provider: Lorenza Mason, PIO) 0837 (Given - Provider: Diana york, RN) 1,000 mcg, Sublingual, DAILY, First dose on 03/26/14 at 1115 gabapentin (NEURONTIN) capsule 300 mg (CANCELED) 0842 (Given - Provider: Bernarda Campo, PIO) 0804 (Given - Provider: Lorenza Mason RN) 0837 (Given - Provider: Diana Chaudhari, PIO) 300 mg, Oral, EVERY MORNING, First dose on 03/22/14 at 0900 gabapentin (NEURONTIN) tablet 600 mg (CANCELED) 2124 ( Given - Provider: Chari Miranda, PIO) 2111 (Given - Provider: Bernarda Campo, PIO) 600 mg, Oral, AT BEDTIME, First dose on Mon03/21/14 at 2200 lisinopril (PRINIVIL,ZESTRIL) tablet 30 mg (CANCELED) 2051 (Given - Provider: Cahri Miranda RN) 08 (Given - Provider: Lorenza boudreaux RN)2111 (Given - Provider: Bernarda Campo, PIO) 0837 (Given - Provider: Diana Chaudhari, PIO) 30 mg, Oral, 2 TIMES DAILY, First dose o n Mon03/25/14 at 2100, Hold for SBP < 100 magnesium oxide (MAG-OX) tablet 400 mg (CANCELED) 08 (Given - Provider: Bernarda Campo RN) 08 (Given - Provider: Lorenza Mason RN) 0837 (Given - Provider: Diana Chaudhari, PIO) 400 mg, Oral, EVERY MORNING, First dose on 03/22/14 at 0900, Therapeutic interchange for Magnesium oxide 500 mg. pregabalin (LYRICA) capsule 75 mg (CANCELED) 2123 (Giv en - Provider: Chari Miranda RN) 2111 (Given - Provider: Bernarda Campo, PIO) 75 mg, Oral, AT BEDTIME, First dose on Mon03/21/14 at 2200 rOPINIRole (REQUIP) tablet 1 mg (CANCELED) 2123 (Given - Provider: hCari Miranda RN) 2111 (Given - Provider: Bernarda Campo RN) 1 mg, Oral, AT BEDTIME, First dose on Mon03/21/14 at 2200 simvastatin (ZOCOR) tablet 20 mg (CANCELED) 2123 (Give n - Provider: Chari Miranda, PIO) 2112 (Given - Provider: Bernarda Campo, PIO) 20 mg, Oral, AT BEDTIME, First dose on Mon03/21/14 at 2200 warfarin (COUMADIN) tablet 10 mg (COMPLETED) 1718 (Given - Provider: Bernarda Campo, PIO) 10 mg, Oral, ONCE AT 6PM, Mon03/26/14 at 1800, For 1 dose warfarin (COUMADIN) tablet 10 mg 10 mg, Oral, ONCE AT 6PM, Mayi 03/27/14 at 1800, For 1 dose warfarin (COUMADIN) tablet 12.5 mg (COMPLETED) 1652 (G iven - Provider: Chari Miranda, PIO)1800 (Canceled Entry - Provider: Chari Miranda RN) 12.5 mg, Oral, ONCE AT 6PM, Tu03/25/14 at 1800, For 1 dose Continuous Medication Order 03/25/2014 03/26/2014 03/27/2014 0.9 % sodium chloride IV solution (CANCELED) 0818 (Rat e/Dose Verify - Provider: Bernarda Campo, PIO)1419 (Rate/Dose Verify - Provider: Bernarda Campo, PIO) 0440 (New Bag - Provider: Cass Yap, PIO )0900 (Rate/Dose Verify - Provider: Lorenza Mason, PIO)1546 (Rate/Dose Verify - Provider: Bernarda Campo, PIO)2358 (New Bag - Provider: Carmen Nieto, PIO) at 50 mL/hr, Intravenous, CONTINUOUS, [facility] 03/23/14 at 1930, Until Mon03/27/14 at 1636 heparin drip 25,000 units in 0.45% NaCl 250 mL (CANCEL ED) 0730 (Rate/Dose Verify - Provider: Cass Yap RN) 10.5 mL/hr (1,050 Units/hr), Intravenous , at 10.5 mL/hr, CONTINUOUS, Starting 03/24/14 at 0815, Heparin 10a(Xa) = 0.23 at 0700 03/24/2014 Goal level of: 0.15- 0.35 IU/mL Heparin instructions: Continue ra te of 1050 units/hr Recheck next heparin 10a(Xa): in the AM 03/25/14 Heparin dosed per [facility] Protocol. Monitor platelets every three days while on anticoagulation therapy. heparin drip 25,000 units in 0.45% NaCl 250 mL (CANCEL ED) 0818 (New Bag - Provider: Bernarda Campo, PIO)1418 (New Bag - Provider: Bernarda Campo, PIO) 13.5 mL/hr (1,350 Units/hr), Intravenous , at 13.5 mL/hr, CONTINUOUS, Starting Mon03/25/14 at 0800, Heparin 10a(Xa) = < 0.1 03/25 am lab Goal level of: 0.15-0.35 IU/mL Heparin instructions: increase hepa rin infusion to 1350 units/hr Recheck ne xt heparin 10a(Xa): 6 hr after rate chg Heparin dosed per [facility] Protocol. Monitor platelets every three days while on anticoagulation therapy. heparin drip 25,000 units in 0.45% NaCl 250 mL (CANCEL ED) 1726 (Rate/Dose Verify - Provider: Chari Miranda RN)1746 (Rate/Dose Verify - Provider: Chari Miranda RN)1747 (Rate/Dose Verify - Provider: Chari Mrianda RN)1748 (Rate/Dose Verify - Provider: Chari Miranda RN) 13.5 mL/hr (1,350 Units/hr), Intravenous , at 13.5 mL/hr, CONTINUOUS, Starting Mon03/25/14 at 1600, Heparin 10a(Xa) = 0.31 1455 03/25 Goal level of: 0.15-0.35 IU/mL Heparin instructions: Continue heparin in 193 (Rate/Dose Verify - Provider: Chari Miranda RN)193 (Not Given - Provider: Chari Miranda RN - Reason: Other) fusion at 1350 units/hr Recheck next hep thanh 10a(Xa): AM 03/26 Heparin dosed per [facility] Protocol. Monitor platelets every three days while on anticoagulation therapy. heparin drip 25,000 units in 0.45% NaCl 250 mL (CANCELED) 0909 (New Bag - Provider: Lorenza Mason RN)1546 (Rate/Dose Verify - Provider: Bernarda Campo RN)2358 (Rate/Dose Verify - Provider: Carmen Nieto RN) 0550 (New Bag - Provider: Carmen guardado RN)0830 (Stopped - Provider: Diana Chaudhari RN) 13.5 mL/hr (1,350 Units/hr), Intravenous , at 13.5 mL/hr, CONTINUOUS, Starting Mon03/26/14 at 0900, Heparin 10a(Xa) = 0.30 Goal level of: 0.15-0.35 IU/mL Heparin instructions: Continue heparin infusi on at 1350 units/hr Recheck next heparin 10a(Xa): AM 65 Heparin dosed per [facility] Protocol. Monitor platelets every three days while on anticoagulation therapy. PRN Medication Order 03/25/2014 03/26/2014 03/27/2014 acetaminophen (TYLENOL) tablet 650 mg (CANCELED) 0010 (Given - Provider: Cass Yap RN)1727 (Given - Provider: Chari Miranda RN) 2201 (Given - Provider: Bernarda Campo RN) 650 mg, Oral, EVERY 4 HOURS PRN, mild pa in, Starting Mon03/21/14 at 1759, Alternate ibuprofen (if ordered) with acetaminophen. Not to exceed 4 grams/day. Maximum acetaminophen dose from all sources = 75 mg/kg/day not to exceed 4 grams/day. fentaNYL (SUBLIMAZE) injection 25-50 mcg (CANCELED) 15 50 (Given - Provider: Lucie Mansfield RN)1601 (Given - Provider: Lucie Mansfield RN) 25-50 mcg, Intravenous, EVERY 2 MIN PRN, Starting Mon03/25/14 at 1549, severe pain, when verbally ordered by the prescriber during the procedure, Doses can be exceeded under direct oversight of patient by physician., Cardiac Intra-procedure midazolam (VERSED) injection 0.5-2 mg (CANCELED) 1550 (Given - Provider: Lucie Mansfield RN)1602 (Given - Provider: Lucie Mansfield, PIO) 0.5-2 mg, Intravenous, EVERY 2 MIN PRN, Starting Mon03/25/14 at 1549, sedation, when verbally ordered by the prescriber during the procedure, Doses can be exceeded under direct oversight of patient by physician., Cardiac Intra-procedure documented in this encounter Care Teams Medical Reception Relationship Specialty Start Date End Date Abbe Charles MD PCP - General 04/01/08 04/13/[address] [address] documented as of this encounter
--- OUTSIDE RECORDS SUMMARY | 2022-07-25 16:08 | XMS_ITS | Encounter Summary ---
:1950 Author Organization [place] Address [facility] [place] [address] Care Team Providers Name Role Phone Abbe Charles MD Primary Care Provider Encounter Details Date Type Department Care Team Description 11/04/2013 [facility] [address] [facility] [place], [place] NEUROLOGY [id number] [address] [facility] [facility] [phone] [phone] (Wo rk) Social History [...] by 0 (MULTI-VITAMIN) per mouth daily. tablet [place]-3 Fatty Acids Take by mouth. 0 0 03/21/2014 (OMEGA-3 FISH OIL PO) oxycodone-acetaminophen Take 1 tablet by 20 tablet 0 201003/21/2014 (PERCOCET) 5-325 MG per mouth every 6 hours tablet as needed for pain. SIMVASTATIN PO Take by mouth. 0 2013 documented as of this encounter Progress Notes Julisa Gutierrez-Provider - 11/05/2013 12:27 PM CST ET RESEARCH COORDINATOR documented in this encounter Plan of Treatment Not on filedocumented as of this encounter Procedures Procedure Name Priority Date/Time Associated Comments Diagnosis TSH Routine 11/04/2013 9:20 Results for this AM MARKET RESEARCH COORDINATOR procedure are i n the results section. IMMUNOGLOBULINS A G AND Routine 11/04/2013 9:20 R esults for this M AM MARKET RESEARCH COORDINATOR procedure are i n the results section. IMMUNOFIXATION ELP Routine 11/04/2013 9:20 Result s for this AM MARKET RESEARCH COORDINATOR procedure are i n the results section. PROTEIN ELECTROPHORESIS Routine 11/04/2013 9:20 R esults for this AM MARKET RESEARCH COORDINATOR procedure are i n the results section. VITAMIN B12 Routine 11/04/2013 9:20 Results for this AM MARKET RESEARCH COORDINATOR procedure are i n the results section. GLUCOSE Routine 11/04/2013 9:20 Results for this AM MARKET RESEARCH COORDINATOR procedure are i n the results section. documented in this encounter Results Vitamin B12 (11/04/2013 9:20 AM MARKET RESEARCH COORDINATOR) athologist Signature Vitamin B12 425 >210 pg/mL [facility] Comment: Interp: [phone] = Normal Specimen Anatomical Collection Method Collection Time Receive d Time (Source) Location / / Volume Laterality 11/04/2013 9:20 AM 4 9:29 MARKET RESEARCH COORDINATOR AM MARKET RESEARCH COORDINATOR Radha Milligan MD LAB - BLOOD ORDERABLES Performing Organization Address City/[facility]/ZIP Code Phon e Number [facility] [address] [place], [place] [id number] [place] [address] LABS TSH (11/04/2013 9:20 AM MARKET RESEARCH COORDINATOR) athologist Signature TSH 0.43 0.4 - 5.0 [facility] LAB Specimen Anatomical Collection Method Collection Time Receive d Time (Source) Location / / Volume Laterality 11/04/2013 9:20 AM 4 9:29 MARKET RESEARCH COORDINATOR AM MARKET RESEARCH COORDINATOR Radha Milligan MD LAB - BLOOD ORDERABLES Performing Organization Address City/[facility]/ZIP Code Phon e Number [place] [address] [address] [place], [place] [address] [facility] LAB (ABNORMAL) Immunoglobulins A G and M (11/04/2013 9:20 AM MARKET RESEARCH COORDINATOR) athologist Signature IGG 879 695 - 1,620 [facility] mg/dL CAMPUS LABS IGA 237 70 - 380 [facility] mg/dL CAMPUS LABS IGM 26 (L) 60 - 265 [facility] mg/dL CAMPUS LABS Specimen Anatomical Collection Method Collection Time Receive d Time (Source) Location / / Volume Laterality 11/04/2013 9:20 AM 4 9:29 MARKET RESEARCH COORDINATOR AM MARKET RESEARCH COORDINATOR Radha Milligan MD LAB - BLOOD ORDERABLES Performing Organization Address City/[facility]/ZIP Code Phon e Number [facility] [address] [place] [address] [facility] LABS Immunofixation ELP (11/04/2013 9:20 AM MARKET RESEARCH COORDINATOR) Component Value Ref Test Analysis [facility]ist Range Method Time Signature Immunofixation No monoclonal protein seen o n immunofixation. ??Pathological significance [facility] ELP requires clinical correlation. CLEAR Alana Leon M.D., Ph.D. [facility] Specimen Anatomical Collection Method Collection Time Receive d Time (Source) Location / / Volume Laterality 11/04/2013 9:20 AM 4 9:29 MARKET RESEARCH COORDINATOR AM MARKET RESEARCH COORDINATOR Radha Milligan MD LAB - BLOOD ORDERABLES Performing Organization Address City/State/ZIP Code Phon e Number [facility] [address] [place] [address] [facility] LABS Glucose (11/04/2013 9:20 AM MARKET RESEARCH COORDINATOR) P athologist Signature Glucose 99 60 - 99 [facility] mg/dL [facility] LAB Specimen Anatomical Collection Method Collection Time Receive d Time (Source) Location / / Volume Laterality 11/04/2013 9:20 AM 4 9:29 MARKET RESEARCH COORDINATOR AM MARKET RESEARCH COORDINATOR Radha Milligan MD LAB - BLOOD ORDERABLES Performing Organization Address City[facility]/ZIP Code Phon e Number [place] [address] [place], [place] [address] [facility] LAB Protein electrophoresis (11/04/2013 9:20 AM MARKET RESEARCH COORDINATOR) Component Value Ref Test Analysis Performed At Patholo gist Range Method Time Signature Albumin 3.9 3.7 - [facility] Fraction 5.1 g/dL [facility] Alpha 1 0.3 0.2 - [facility] Fraction 0.4 g/dL [facility] Alpha 2 0.7 0.5 - [facility] Fraction 0.9 g/dL [facility] Beta Fraction 0.8 0.6 - [facility] 1.0 g/dL [facility] Gamma 0.8 0.7 - [facility] Fraction 1.6 g/dL [facility] Monoclonal 0.0 0.0 g/dL [facility] Peak [facility] ELP Essentially normal electrophoretic pattern. No monoclonal protein seen. [facility] Interpretatio Pathologic significance req uires clinical correlation. Alana Leon M.D., CLEAR n: Ph.D., Pathologist [facility] Specimen Anatomical Collection Method Collection Time Receive d Time (Source) Location / / Volume Laterality 11/04/2013 9:20 AM 4 9:29 MARKET RESEARCH COORDINATOR AM MARKET RESEARCH COORDINATOR Radha Milligan MD LAB - BLOOD ORDERABLES Performing Organization Address City/State/ZIP Code Phon e Number [facility] [address] [place] [address] [facility] documented in this encounter Visit Diagnoses Not on filedocumented in this encounter Care Teams Micro Paleontologist Relationship Specialty Start Date End Date Abbe Charles MD PCP - General 04/01/08 04/13/[address] [address] documented as of this encounter
--- OUTSIDE RECORDS SUMMARY | 2022-07-25 16:08 | XMS_ITS | Encounter Summary ---
:1950 Author Organization [place] Address Formerly [facility], [facility] [place] [address] Care Team Providers Name Role Phone Abbe Charles MD Primary Care Provider Reason for Visit Reason Comments Foot Pain Encounter Details Date Type Department Care Team Description 10/14/2013 Emergency [facility] [place] Bhargav Lobo of left foot, [facility] Emergency Dep gwendolyn Vanessa MD initial encounter [address] [facility] (Primary Dx) [facility] [id number] [address] [facility] [phone] [place], [place] [address] (Wo rk) Social History Tobacco Use Types Packs/Day Years Used Date Never Smoker Alcohol Use Standard Drinks/Week Comments No 0 (1 standard drink = 0.6 oz pure alcoho l) Sex Assigned at Date Recorded Not on file documented as of this encounter Last Filed Vital Signs Vital Sign Reading Time Taken Comments Blood Pressure 145/67 10/14/2013 10:30 AM STEAM ROOM ATTENDANT Pulse - - Temperature 37.1 ??C (98.7 ??F) 10/14/2013 8:41 AM STEAM ROOM ATTENDANT Respiratory Rate 16 10/14/2013 8:41 AM STEAM ROOM ATTENDANT Oxygen Saturation 94% 10/14/2013 10:30 AM STEAM ROOM ATTENDANT Inhaled Oxygen Concentration - - Weight - - Height - - Body Mass Index - - documented in this encounter Discharge Instructions Discharge InstructionsBhargav Lobo MD - 10/14/2013 10:04 AM STEAM ROOM ATTENDANT Please make an appointment to follow up with your primary care md in 1-2 days if not improving and return to the ED immediately if your symptoms worsen in any way. M ROOM ATTENDANT AttachmentsThe following attachments cannot be sent through Care Everywhere. SPRAIN FOOT (URDU)documented in this encounter Medications at Time of [...] by 0 (MULTI-VITAMIN) per mouth daily. tablet [place]-3 Fatty Acids Take by mouth. 0 0 03/21/2014 (OMEGA-3 FISH OIL PO) oxycodone-acetaminophen Take 1 tablet by 20 tablet 0 201003/21/2014 (PERCOCET) 5-325 MG per mouth every 6 hours tablet as needed for pain. SIMVASTATIN PO Take by mouth. 0 2013 documented as of this encounter ED Notes Mack Plaza RN - 10/14/2013 8:42 AM CST Family at bedside. Mack Ugalde RN - 10/14/2013 8:41 AM CST MD at bedside. Katharina Boyer RN - 10/14/2013 8:39 AM CST Left foot pain, stepped out of the car yesterday and injured foot when he slipped. Bhargav Shane MD - 10/14/2013 8:38 AM CST History Chief Complaint: Foot Pain HPI Damon Mccall is a 63 year old male with a history of stroke and HTN who presents with foot pain. At 5 PM last night the patient states I was getting out of my vehicle, slipped, and my left foot bent back like I was standing on my tip toes and I felt something rip. The patient states the bottom of his left foot hurts worse, rating his pain a 4 but is pain free while sitting in bed. The patient denies ankle pain, hip pain, knee pain, or pain on the side or top of his foot. Of note, the patient states he has been doctoring this left foot, seeing a reprographics technician who has not found anything specificallywrong with the left foot and has been treating the patient for neuropathy since mid August. The patient voices no other complaints or injuries at this time. Allergies: NKDA Medications: Gabapentin Simvastatin Klonopin Lisinopril Atenolol Zocor Plavix ASA Ibuprofen Robaxin Percocet Past Medical History: Stroke HTN Past Surgical History: GI surgery Resection abdominal perineal Colonoscopy Family History: The patient denies a pertinent family history. Social History: Marital status: Tobacco use: negative Alcohol use: negative Patient presents to the ED with . Review of Systems Musculoskeletal: Positive for left foot pain. All other systems reviewed and are negative. Physical Exam First Vitals: Blood pressure: 177/71 Respiration rate: 16 SpO2: 98% Temperature: 98.7 Physical Exam Constitutional: He is oriented to person, place, and time. He appears well- developed and well-nourished. No distress. HENT: Head: Normocephalic and atraumatic. Mouth/Throat: Oropharynx is clear and moist. No oropharyngeal exudate. Eyes: Conjunctivae normal and EOM are normal. Pupils are equal, round, and reactive to light. Right eye exhibits no discharge. Left eye exhibits no discharge. No scleral icterus. Neck: Normal range of motion. Neck supple. No JVD present. No tracheal deviation present. No thyromegaly present. Cardiovascular: Normal rate, regular rhythm and normal heart sounds. No murmur heard. Pulmonary/Chest: Effort normal and breath sounds normal. No stridor. No respiratory distress. He hasno wheezes. He has no rales. He exhibits no tenderness. Abdominal: Soft. Bowel sounds are normal. He exhibits no distension. There is no tenderness. There is no guarding. Musculoskeletal: Normal range of motion. He exhibits no edema and no tenderness. Diffuse L sided weakness greater than R but still 5/5. L plantar foot pain, no anterior or lateral foot pain. Lymphadenopathy: He has no cervical adenopathy. Neurological: He is alert and oriented to person, place, and time. No cranial nerve deficit. He exhibits normal muscle tone. Coordination normal. Skin: Skin is warm and dry. No rash noted. He is not diaphoretic. No erythema. Psychiatric: He has a normal mood and affect. His behavior is normal. Thought content normal. Emergency Department Course Imaging: Foot XR, G/E 3 Views, left: IMPRESSION: Prominent calcaneal spurs. Exam otherwise negative. AILYN CHAVEZ MD Radiographic findings were communicated with the patient and family who voiced understanding of the findings. ED Course: The patient was roomed. The patient was placed on pulse oximetry. The patient's medical charts were reviewed and I examined the patient. 10:58 AM - I rechecked the patient who states he feels great. Findings and plan explained to the Patient and spouse. Patient discharged home, status improved, with instructions regarding supportive care and reasons to return as well as the importance of close follow-up was reviewed. Impression & Plan Medical Decision Making: This is a 63 year old gentleman with neuropathy and acute on chronic left foot pain after a misstep yesterday. XR showed no acute fracture. He has no tenderness of the ankle or foot laterally, but there is tenderness under his foot, consistent with a possible fasciitis or plantar tendon rupture. We tried an ortho shoe but patient did not tolerate this. We then put him in an ortho boot and he had significant relief of pain and was able to ambulate. He will be discharged home and follow up with podiatry. Return to ED immediately with worsening symptoms. At this point I have less concern for Charcot foot, given normal XR. Diagnosis: 1. Foot pain. Disposition: Ortho boot and follow up with podiatry as soon as possible. IRobyn am serving as a scribe on 10/14/2013 at 8:40 AM to personally document servicesperformed by Dr. Lobo based on my observations and the provider's statements to me. Bhargav Lobo MD 10/14/13 1407 M ROOM ATTENDANT documented in this encounter Plan of Treatment Not on filedocumented as of this encounter Procedures Procedure Name Priority Date/Time Associated Diagnosis Comme nts XR FOOT LEFT G/E 3 STAT 10/14/2013 9:11 AM Res ults for this VIEWS STEAM ROOM ATTENDANT procedure are i n the results section. documented in this encounter Results Foot XR, G/E 3 views, left (10/14/2013 9:11 AM STEAM ROOM ATTENDANT) Anatomical Region Laterality Modality Foot, Ankle Left Computed Radiography Specimen (Source) Anatomical Location Collection Method / Collectio n Time Received Time / Laterality Volume Impressions 10/14/2013 9:15 AM STEAM ROOM ATTENDANT IMPRESSION: Prominent calcaneal spurs. Exam otherwise negative. AILYN CHAVEZ MD Narrative 10/14/2013 9:15 AM STEAM ROOM ATTENDANT XR FOOT LT G/E 3 VW 10/14/2013 9:14 AM HISTORY: plantar foot pain, Procedure Note Ailyn Chavez MD - 10/14/2013Formatt ing of this note might be different from the original. XR FOOT LT G/E 3 VW 10/14/2013 9:14 AM HISTORY: plantar foot pain, IMPRESSION IMPRESSION: Prominent calcaneal spurs. E xam otherwise negative. AILYN CHAVEZ MD Bhargav Lobo MD IMG DIAGNOSTIC IMAGING ORDER BRICE documented in this encounter Visit Diagnoses Diagnosis Sprain of left foot, initial encounter - Primary documented in this encounter Care Teams Building Stonecutter Relationship Specialty Start Date End Date Abbe Charles MD PCP - General 04/01/08 04/13/[address] [phone] documented as of this encounter
--- OUTSIDE RECORDS SUMMARY | 2022-07-25 16:08 | XMS_ITS | Encounter Summary ---
:1950 Author Organization [place] Address [facility] [place] [address] Care Team Providers Name Role Phone Abbe Charles MD Primary Care Provider Reason for Visit Reason Comments Loop Recorder Implant Check 7 day post implant Encounter Details Date Type Department Care Team Description 04/02/2014 Office Visit [facility] CVA (cerebral infarction) Clinic [place] (Primary Dx) [address] [facility] [address] [place] [address] Social History Tobacco Use Types Packs/Day Years Used Date Never Smoker Alcohol Use Standard Drinks/Week Comments No 0 (1 standard drink = 0.6 oz pure alcoho l) Sex Assigned at Date Recorded Not on file documented as of this encounter Progress Notes Arelis Barreto RN, RN - 04/02/2014 1:49 PM CDT [employer] Reveal Linq loop recorder 7 days post implant No automatic detected events. Pt pushed symptoms X 3 for dizziness. Rhythm at these times was sinus;Reviewed when to and how to push symptom activated button. Reviewed [employer] patient monitor transmissions. Begin Q 3 month transmissions. Ruth De Souza documented in this encounter Plan of Treatment Not on filedocumented as of this encounter Procedures Procedure Name Priority Date/Time Associated Diagnosis Comme nts HC INTERR DEVICE EVAL Routine 04/02/2014 1:49 PM CDT CVA (cere bral IN PERSON, CARDIAC infarction) RHYTHM MONITOR documented in this encounter Visit Diagnoses Diagnosis CVA (cerebral infarction) - Primary Unspecified cerebral artery occlusion wi th cerebral infarction documented in this encounter Care Teams Professor Of Physical Education Relationship Specialty Start Date End Date Abbe Charles MD PCP - General 04/01/08 04/13/[address] [phone] documented as of this encounter
--- OUTSIDE RECORDS SUMMARY | 2022-07-25 16:09 | XMS_ITS | Encounter Summary ---
:1950 Author Organization [place] Address [address] [place] [address]. [place] [address] Care Team Providers Name Role Phone Unavailable Primary Care Provider Unavailable Encounter Details Date Type Department Care Team Description 08/28/2004 Results Only [facility] [address] [place], [place] [address] (Wo rk) Social History Tobacco Use Types Packs/Day Years Used Date Never Assessed Sex Assigned at Date Recorded Not on file documented as of this encounter Plan of Treatment Not on filedocumented as of this encounter Procedures Procedure Name Priority Date/Time Associated Diagnosis Comme nts CT ABDOMEN W Routine 08/28/2004 11:00 AM Resul ts for this CONTRAST FINISHING POWDER PRESS OPERATOR procedure are i n the results section. documented in this encounter Results CT SCAN OF ABDOMEN CONTRAST (08/28/2004 11:00 AM FINISHING POWDER PRESS OPERATOR) Specimen (Source) Anatomical Collection Method Collection Time Re ceived Time Location / / Volume Laterality 08/28/2004 11:00 AM FINISHING POWDER PRESS OPERATOR Impressions Pacs, Data Conversion - 08/29/2004 2:38 PM FINISHING POWDER PRESS OPERATOR CT ABDOMEN AND PELVIS SCAN ?? REASON FOR EXAM: Followup diverticulitis . ?? PROCEDURE: After oral contrast and durin g bolus IV contrast, the abdomen and pelvis were scanned. ?? FINDINGS: Inflammatory process proximal sigmoid colon with associated perforation, streaky stranding and some air bubbles behind the proximal sigmoid colon where there is a poorly organized small, approximately 3 cm diameter abscess, sca n images 58-60, but the overall appearance looks unchanged from scan dated 08/25/04. ??No free air. ?? IMPRESSION: Diverticulitis pattern with associated perforation and small 3 cm abscess, the appearance looks about the same as the scan of three days ago. Emmanuel Ornelas MD SPECIAL IMAGING STUDIES documented in this encounter Visit Diagnoses Not on filedocumented in this encounter
--- OUTSIDE RECORDS SUMMARY | 2022-07-25 16:09 | XMS_ITS | Encounter Summary ---
:1950 Author Organization [place] Address [facility] [place] [address] Care Team Providers Name Role Phone Unavailable Primary Care Provider Unavailable Encounter Details Date Type Department Care Team Description 06/19/2006 Emergency room Elen Metzger MD EMERGENCY PHYSIC I[facility] [address] [facility] [address] [place] [address] (Wo rk) Social History Tobacco Use Types Packs/Day Years Used Date Never Assessed Sex Assigned at Date Recorded Not on file documented as of this encounter Progress Notes Elen Metzger MD - 07/21/2006 4:52 AM CDT FINAL CHIEF COMPLAINT: Right foot pain. HISTORY OF PRESENT ILLNESS: Marlene Mccall is a 56-year-old gentleman who is otherwise healthy who apparently dropped a box on his right foot 2 days ago. He says it hurt quite a bit afterwards but then hewas able to walk on it okay. Then over the next couple hours it really swelled up and he said he hada lot of pain over the top of the foot with swelling. He says currently when he does not move it, itis really not painful and he says he can walk on it but it hurts a little bit to do so about 6-7/10 and an ache in the dorsum of his foot, right where the box hit. He says he did not hear any cracking or popping and he says right after it happened it hurt for 4-5 seconds, but then he said it did not really hurt at all until it started swelling, denies any other associated symptoms. No distal numbnessor tingling. ALLERGIES: None. CURRENT MEDICATIONS: Plavix, atenolol, Zocor, aspirin, vitamins. PAST MEDICAL HISTORY: Hypertension and heart disease. FAMILY HISTORY: Negative. REVIEW OF SYSTEMS: See HPI, all other systems reviewed are negative. PHYSICAL EXAMINATION: VITAL SIGNS: Blood pressure 144/73, pulse 54, respirations 18, temperature 95 and neck saturation 98% on room air. GENERAL: This is a 56-year-old male who is pleasant to talk to. HEENT: Normocephalic and atraumatic. Mucous membranes are moist. HEART: Regular. LUNGS: Breath sounds are clear. EXTREMITIES: Atraumatic other than the right foot which has a healing abrasion over the top of the foot about mid foot and a little bit laterally in the dorsum. There is quite a bit of swelling of theentire foot, but no obvious [address] of bony tenderness. There is quite a bit of ecchymosis as well. Good distal pulses and good distal neurological sensation. No bony tenderness in the anklenoted. EMERGENCY DEPARTMENT COURSE: X-rays did not reveal any acute abnormalities on this patient and I feel likely he bled quite a bit after this injury due to being on aspirin and Plavix. I will have him ice, rest, elevate the extremity and follow with his family doctor in 2 days if not better. I will also give him a walking boot. DIAGNOSIS: Right foot contusion with ecchymosis. Electronically signed on 07/21/2006 04:51 by ELEN METZGER MD MT: [id number] Name: MARLENE MCCALL MRN: [id number] Account: [id number] : 1950 Visit Date: 06/19/2006 Document: [id number] documented in this encounter Plan of Treatment Not on filedocumented as of this encounter Visit Diagnoses Not on filedocumented in this encounter
--- OUTSIDE RECORDS SUMMARY | 2022-07-25 16:09 | XMS_ITS | Encounter Summary ---
:1950 Author Organization [place] Address Formerly [facility] [place] [address] Care Team Providers Name Role Phone Unavailable Primary Care Provider Unavailable Encounter Details Date Type Department Care Team Description 08/26/2004 Admission [facility] Celestine Brewer, (Field Observer) Clinic [place] MD [address] [place] [address] [facility] [address] [facility] [phone] [place], [place] [address] (Wo rk) Social History Tobacco Use Types Packs/Day Years Used Date Never Assessed Sex Assigned at Date Recorded Not on file documented as of this encounter H&P Notes Celestine Brewer - 08/25/2004 12:00 AM PROFESSOR OF RHETORIC : 46 Marlene Mccall is a 54-year-old male who was seen initially in the emergency room and subsequently admitted to the medical/surgical floor following presentation of left lower abdominal pain yesterday. He denies having had an episode of nausea or vomiting. His abdominal pain is really subtle and minimal. He states that he had similar presentation about a year ago, however did not seek any medical attention. This time he thought that he would come to the emergency room and be evaluated. Following evaluation in the emergency room, the patient was found to have a perforated, albeit well-contained to the lower abdomen (sigmoid diverticulitis perforation). He did not refer to any ROUGH AND TRUEING MACHINE OPERATOR, cardiorespiratory symptoms. Patient does not refer to any known fever or chills. No musculoskeletal symptoms are referred. No cold or heat intolerance is referred. PAST MEDICAL HISTORY: 1. Colonic diverticulitis. 2. Hypertension. 3. 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 MEDICATIONS: 1. Plavix 75 mg daily. 2. Clonazepam 0.5 mg at bedtime. 3. Lisinopril 20 mg b.i.d. 4. Atenolol 50 mg in a.m. and 25 mg at night. 5. Folgard one tablet daily. ALLERGIES: No known drug allergies. SOCIAL, FAMILY HISTORY: Patient is . 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 He denies tobacco smoking. He reports to only occasional consumption of alcohol. REVIEW OF SYSTEMS: As noted above. EXAMINATION: Patient is awake, alert, oriented to time, place and person. He really is not in any acute distress except mild discomfort in the left lower abdomen. Vital signs include blood pressure 136/78, pulse 80, respiratory rate 14, and he is afebrile. HEENT - unremarkable. NECK - supple. There is no thyromegaly. LUNGS - clear. HEART - tones are regular rate and rhythm. There is no cardiac murmur. Carotid upstroke on palpation is normal bilaterally. ABDOMEN - protuberant, however soft with minimal tenderness in the left lower quadrant. Bowel sounds are present. EXTREMITIES - no edema, no calf tenderness. NEUROLOGIC - reveals mild left hemiparesis. Peripheral pulses are full. LABORATORY STUDIES: CBC is within normal limits. Serum chemistries also within normal limits. An abdominal CT scan reveals a well-contained perforated sigmoid diverticulitis. There is no josh abscess formation or involvement of the entire peritoneal cavity, however. IMPRESSION: A well-contained perforated sigmoid diverticulitis. Patient is started on Zosyn 3.375 gram I.V. every [address] Cedillo, the general surgeon, was gracious enough to see the patient. He recommends that the patient be treated cautiously with I.V. antibiotic and patient is kept n.p.o. for the time being. If he does well, then his surgery can be electively doneat a later date. However, the patient is advised that he may need to have the operation done sooner than later, and he expressed an understanding of that. All the above was discussed in detail with the patient and his family, including his and daughter who were present during the interview and physical exam. [id number] CELESTINE BREWER MD MT: Document: [id number] [place], [place] Name: MR#: MARLENE MCCALL [id number] HISTORY AND PHYSCIAL Page 2 of 2 LCN: [id number] DSC: [place], [place] Name: MR#: MARLENE MCCALL [id number] : Admit Date: Account #: 1950 08/25/2004 [id number] Doctor: CELESTINE BREWER MD HISTORY AND PHYSICAL Page 1 of 2 ESSOR OF RHETORIC documented in this encounter Plan of Treatment Not on filedocumented as of this encounter Visit Diagnoses Not on filedocumented in this encounter
--- OUTSIDE RECORDS SUMMARY | 2022-07-25 16:09 | XMS_ITS | Encounter Summary ---
:1950 Author Organization [place] Address [address] [place] [address] Care Team Providers Name Role Phone Abbe Charles MD Primary Care Provider Reason for Visit Auth/Cert - Closed Specialty Diagnoses / Procedures Referred By Contact Refer red To Contact Gastroenterology Diagnoses Screening Endoscopy Procedures COLONOSCOPY [address] [place] [address] Phone: Fax: Referral ID Status Reason Start Date Expiration Date Visits Requ ested Visits Authorized [id number] Closed 1 1 Encounter Details Date Type Department Care Team Description 10/17/2012 Surgery [facility] Endoscopy Damon House MD Colonoscopy [facility] GASTROENTEROLOGY [address] [facility] [address] [place] [address] [place] [address] [phone] (Wo rk) Surgery Details Date/Time Status Location OR Service Patient Class Case Case Trauma Class Type Case? 10/17/12 Posted GI GI B Gastroenterology Outpatient 10:00 AM Panel 1 Procedure LRB Anes Op Region Wound Class Commen ts Colonoscopy N/A Conscious Sedation Rectum II-Clean Contami nated Colonoscopy Surgeon Surgeon Role Service Panel Damon Jaimes MD Primary Gastroenterology 1 Special Needs Ref: Dr Abbe Costa documented in this encounter Social History Tobacco Use Types Packs/Day Years [...] by 0 (MULTI-VITAMIN) per mouth daily. tablet Calvert-3 Fatty Acids Take by mouth. 0 0 03/21/2014 (OMEGA-3 FISH OIL PO) oxycodone-acetaminophen Take 1 tablet by 20 tablet 0 201003/21/2014 (PERCOCET) 5-325 MG per mouth every 6 hours tablet as needed for pain. SIMVASTATIN PO Take by mouth. 0 2013 documented as of this encounter Consult Notes Damon Jaimes MD - 10/17/2012 10:52 AM CST Pre-Endoscopy History and Physical Damon Mccall Date of : 1950 Age: [age] year old Date of Procedure: 10/17/2012 Primary care provider: Abbe Charles Type of Endoscopy: colonoscopy Reason for Procedure: colon cancer screening Type of Anesthesia Anticipated: Moderate (conscious) sedation HPI: Damon is a 62 year old male who will be undergoing the above procedure. A history and physical has been performed. The patient's medications and allergies have been reviewed. The risks and benefits of the procedure and the sedation options and risks were discussed with thepatient. All questions were answered and informed consent was obtained. He denies a personal or family history of anesthesia complications or bleeding disorders. No Known Allergies No current facility-administered medications for this encounter. There is no problem list on file for this patient. Past Medical History Diagnosis Date ??? Unspecified cerebral artery occlusion with cerebral infarction ??? Hypertension Past Surgical History Procedure Date ??? Gi surgery ??? Resection abdominal perineal ??? Colonoscopy History Substance Use Topics ??? Smoking status: Never Smoker ??? Smokeless tobacco: Not on file ??? Alcohol Use: No History reviewed. No pertinent family history. REVIEW OF SYSTEMS: 5 point ROS negative except as noted above in HPI, including Gen., Resp., CV, GI & system review. PHYSICAL EXAM: Resp 18 Ht 1.854 m (6' 1) Wt 113.399 kg (250 lb) BMI 32.98 kg/m2 Estimated Body mass index is32.98 kg/(m^2) as calculated from the following: Height as of this encounter: 6' 1(1.854 m). Weight as of this encounter: 250 lb(113.399 kg). GENERAL APPEARANCE: healthy MENTAL STATUS: alert AIRWAY EXAM: Mallampatti Class I (visualization of the soft palate, fauces, uvula, anterior and posterior pillars) RESP: lungs clear to auscultation - no rales, rhonchi or wheezes CV: regular rates and rhythm DIAGNOSTICS: Not indicated IMPRESSION ASA Class 1 - Healthy patient, no medical problems PLAN: Colonoscopy The above has been forwarded to the consulting provider. Signed Electronically by: Damon Jaimes October 17, 2012 ING MACHINE TENDER DECORATIVE documented in this encounter Plan of Treatment Not on filedocumented as of this encounter Procedures Procedure Name Priority Date/Time Associated Diagnosis Comme nts COLONOSCOPY 10/17/2012 11:07 AM CUTTING MACHINE TENDER DECORATIVE Screening Special Needs Ref: Dr Abbe Costa COLONOSCOPY Routine 10/17/2012 11:02 AM CUTTING MACHINE TENDER DECORATIVE Resu lts for this procedure are in the results section . documented in this encounter Results COLONOSCOPY (10/17/2012 11:02 AM CUTTING MACHINE TENDER DECORATIVE) [facility] Method Time Signature COLONOSCOPY [facility] RAD IOLOGY RESULTS Patient Name: Damon Mccall ?Procedure Date: 10/17/2012 11:02:11 AM ? Date of : 1950 ?Admit Type: Outpatient ? Age: 62 ? Gender: Male ? Attending MD: Damon Snyder MD ? Procedure: ?Colonoscopy Indications: ?Screening for c olorectal malignant neoplasm, ?Established diverticulosis of the colon (history of ?sigmoid resection) Providers: ?Damon Jaimes MD Referring MD: ? Abbe Charles MD Medicines: ?Fentanyl 100 micrograms IV, Midazolam 2 mg IV Complications: ?No immediate complications Procedure: ?Pre-Anesthesia Assessment: ?- Prior to the procedure, a History and Physical ?was performed, and patient medications and ?allergies were reviewed. The patient is competent. ?The risks and benefits of the procedure and the ?sedation options and risks were discussed with the ?patient. All questions were answered and informed ?consent was obtained. Patient identification and ?proposed procedure were verified by the physician ?in the procedure room. Mental Status Examination: ?alert and oriented. Airway Examination: normal ?oropharyngeal airway and neck mobility. Respiratory ?Examination: clear to auscultation. CV Examination: ?normal. Prophylactic Antibiotics: The patient does ?not require prophylactic antibiotics. Prior ?Anticoagulants: The patient has taken no previous ?anticoagulant or antiplatelet agents. ASA Grade ?Assessment: II - A patient with mild systemic ?disease. After reviewing the risks and benefits, ?the patient was deemed in satisfactory condition to ?undergo the procedure. The anesthesia plan was to ?use moderate sedation / analgesia (conscious ?sedation). Immediately prior to administration of ?medications, the patient was re-assessed for ?adequacy to receive sedatives. The heart rate, ?respiratory rate, oxygen saturations, blood ?pressure, adequacy of pulmonary ventilation, and ?response to care were monitored throughout the ?procedure. The physical status of the patient was ?re-assessed after the procedure. ?After obtaining informed consent, the colonoscope ?was passed under direct vision. Throughout the ?procedure, the patient's blood pressure, pulse, and ?oxygen saturations were monitored continuously. The ?Colonoscope was introduced through the anus and ?advanced to the terminal ileum. The colonoscopy was ?performed without difficulty. The patient tolerated ?the procedure well. The quality of the bowel ?preparation was good. ? Findings: ? A few medium-mouthed diverticula were found scatter ed throughout the ? remaining colon. The terminal ileum appeared normal. ? Impression: ? - Diverticulosis entire exa mined colon. ?- The examined portion of the ileum was normal. Recommendation: ? - Repeat colonosc opy in 10 years for screening ?purposes. ? Damon Jaimes M.D. Damon Jaimes MD Signed Date: 10/17/2012 11:34:31 AM Number of Addenda: 0 Note Initiated On: 10/17/2012 11:02:11 AM Scope Withdrawal Time: 0 hours 6 minutes 39 seconds Scope Withdrawal Time: 0 hours 6 minutes 39 seconds Total Procedure Duration: 0 hours 8 minutes 9 seconds Specimen (Source) Anatomical Collection Method Collection Time Re ceived Time Location / / Volume Laterality 10/17/2012 11:02 AM CUTTING MACHINE TENDER DECORATIVE Abbe Charles MD PROCEDURES Performing Organization Address City/State/ZIP Code Phon e Number RADIOLOGY RESULTS documented in this encounter Visit Diagnoses Not on filedocumented in this encounter Administered Medications Inactive Administered Medications - up to 3 most recent administrations Medication Order MAR Action Action Date Dose Rate Site fentaNYL (SUBLIMAZE) injection Given 10/17/2012 11:19 AM CUTTING MACHINE TENDER DECORATIVE 100 mcg PRN, moderate to severe pain, Starting on Mon10/17/12 at 1119, Intra-procedure midazolam (VERSED) injection Given 10/17/2012 11:19 AM CUTTING MACHINE TENDER DECORATIVE 2 mg PRN, anxiety, Starting on Mon10/17/12 at 1119, Intra-procedure sodium chloride (PF) 0.9% PF flush 3 mL Given 10/17/2012 11:19 AM CUTTING MACHINE TENDER DECORATIVE 3 mLs 3 mL, Intravenous, EVERY 1 HOUR PRN, line flush, post meds or blood draw, Starting on Mon10/17/12 at 1112, for peripheral IV flush post IV meds, Pre-procedure documented in this encounter Active and Recently Administered Medications Times are shown in CUTTING MACHINE TENDER DECORATIVE. PRN Medication Order 10/15/2012 10/16/2012 10/17/2012 fentaNYL (SUBLIMAZE) injection (CANCELED) 111 (Given - Provider: Damon Jaimes MD) PRN, Starting Mon10/17/12 at 1119, moderate to severe pain, Int ra-procedure midazolam (VERSED) injection (CANCELED) 111 (Given - Provider: Damon Jaimes MD) PRN, Starting Mon10/17/12 at 1119, anxiety, Intra-procedure sodium chloride (PF) 0.9% PF flush 3 mL (CANCELED) 111 (Given - Provider: Damon Jaimes MD) 3 mL, Intravenous, EVERY 1 HOUR PRN, dilip e flush, post meds or blood draw, Starting Mon10/17/12 at 1112, for peripheral IV flush post IV meds, Pre-procedure documented in this encounter Care Teams Customer Account Representative Relationship Specialty Start Date End Date Abbe Charles MD PCP - General 04/01/08 04/13/14 [facility] [address] [place] [address] documented as of this encounter
--- OUTSIDE RECORDS SUMMARY | 2022-07-25 16:09 | XMS_ITS | Encounter Summary ---
:1950 Author Organization [place] Address [address] [facility] [place] [address] Care Team Providers Name Role Phone Abbe Charles MD Primary Care Provider Reason for Referral - Closed Specialty Diagnoses / Procedures Referred By Contact Refer red To Contact [address] , [address] [facility] [address] [place] [id number] Referral ID Status Reason Start Date Expiration Date Visits Requ ested Visits Authorized [id number] Closed 04/02/2008 10/22/2011 1 1 Encounter Details Date Type Department Care Team Description 04/15/2008 Abstract [facility] [address] , outside referral [facility] [address] [place] [id number] (Wo rk) Social History Tobacco Use Types Packs/Day Years Used Date Never Assessed Sex Assigned at Date Recorded Not on file documented as of this encounter Plan of Treatment Scheduled Referrals Name Type Priority Associated Diagnoses Order S chedeidra CONSULT DIABETIC Referral Routine Ordered: 04/02/2008 EDUCATION documented as of this encounter Visit Diagnoses Diagnosis DIAGNOSIS NOT YET DEFINED - Primary documented in this encounter Care Teams Outreach Team Member Relationship Specialty Start Date End Date Abbe Charles MD PCP - General 04/01/08 04/13/14 [facility] [address] [place] [phone] documented as of this encounter
--- OUTSIDE RECORDS SUMMARY | 2022-07-25 16:09 | XMS_ITS | Encounter Summary ---
:1950 Author Organization [place] Address [facility] [facility] [place] [address] Care Team Providers Name Role Phone Abbe Charles MD Primary Care Provider Reason for Visit Reason Comments Diabetes Education Encounter Details Date Type Department Care Team Description 04/15/2008 [facility] [address] abetes Education Health/Nurse [facility] Francisco J, RD Visit [facility] [address] [place], [place] [address] [address] (Wo rk) Social History Tobacco Use Types Packs/Day Years Used Date Never Assessed Sex Assigned at Date Recorded Not on file documented as of this encounter Last Filed Vital Signs Vital Sign Reading Time Taken Comments Blood Pressure - - Pulse - - Temperature - - Respiratory Rate - - Oxygen Saturation - - Inhaled Oxygen Concentration - - Weight 117.9 kg (260 lb) 04/15/2008 12:30 PM CDT Height 185.4 cm (6' 1) 04/15/2008 12:30 PM CDT Body Mass Index 34.3 04/15/2008 12:30 PM CDT documented in this encounter Progress Notes [address] - 04/15/2008 1:27 PM CDT SUBJECTIVE: Damon Mccall presents today for education related to Pre-diabetes He is accompanied by spouse,Maeve 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 Patient concerns: is concerned about caring for self and overall health--previous stroke-sister diedfrom complications of uncontrolled diabetes LAB RESULTS: Glucose monitoring results: am glucose- 112-140 A1C 6.3@ 03/28/08 HDL 53@ 03/28/08 LDL 97@ 03/28/08 GLC 121@ 03/28/08 VITALS: Ht 6' 1 (1.854 m) Wt 260 lb (117.935 kg) History Tobacco Use Not on file Today's Blood Glucose result is on Compact meter. EXERCISE: no regular exercise program NUTRITION: Patient currently eats 3 meals 1-2 snacks per day and CHO choices- 4-5 BF, 4-5 Lunch, 6- Dinner, 2-3Snack VISIT TYPES: Group Encounters: Individual Encounters: Initial (individual) SOCIO/ECONOMIC HISTORY: Race/Ethnicity: White/ Learning Assessment: No Barriers identified Lives with: spouse Recent family changes/social stressors: none noted Family Medical History: Language(s) spoken at home: Romansh There are no active problems to display for this patient. CURRENT MEDS: No current outpatient prescriptions on file. ROS: Patient experiencing the following diabetes related symptoms: none ASSESSMENT: DIABETES: Control good A1C 6.3@ 03/28/08 HTN: Control good Last BP: Data Unavailable HYPERCHOLESTEROLEMIA: Control good LDL 97@ 03/28/08 PLAN:pyramid guidelines given to eat q 4-5h Initiate daily planned physical activity FOLLOW-UP: Follow up in 2 week(s) Patient-stated goal written and given to patient. Continue SBGM tid Maintain food and activity log and return it for evaluation Schedule group classes documented in this encounter Plan of Treatment Not on filedocumented as of this encounter Visit Diagnoses Diagnosis Impaired fasting glucose - Primary documented in this encounter Care Teams Licensing And Registration Director Relationship Specialty Start Date End Date Abbe Charles MD PCP - General 04/01/08 04/13/14 [facility] [address] [place] [phone] documented as of this encounter
--- OUTSIDE RECORDS SUMMARY | 2022-07-25 16:09 | XMS_ITS | Encounter Summary ---
:1950 Author Organization [place] Address [facility] [place] [address] Care Team Providers Name Role Phone Unavailable Primary Care Provider Unavailable Encounter Details Date Type Department Care Team Description 09/09/2004 Consultation [facility] Horacio Raphael MD [facility] [address] [place] [phone] (Wo rk) Social History Tobacco Use Types Packs/Day Years Used Date Never Assessed Sex Assigned at Date Recorded Not on file documented as of this encounter Consult Notes Horacio Apodaca - 09/09/2004 12:00 AM COOK CHEF : 46 CHIEF COMPLAINT: Postoperative sigmoid colectomy with history of hypertension, hypercholesterolemia, stroke. HISTORY OF PRESENT ILLNESS: The patient is a 54-year-old male who is known to me from an admission about a year ago. His past medical history is summarized below. He had been doing reasonably well until August 25, when he was admitted with a contained perforated sigmoid diverticula. This was treated conservatively without surgery. He did have development of a small abscess. He was discharged on August 29. He followed up with Surgery after their consultation in the hospital. Since the time of his discharge, he has had persistent pain that has been controlled with oral pain medications. He also has been on antibiotic therapy. He decided with his surgeons to go ahead and have elective sigmoid colectomy and reanastomosis which was done without complications today. After surgery, he is doing well with minimal abdominal pain. He has no other complaints. 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 Recent contained perforated sigmoid diverticulitis. He also has hyperhomocystinemia. MEDICATIONS: Aspirin 325 mg daily, Plavix 75 mg daily, atenolol 75 mg daily, lisinopril 20 mg twice a day, clonazepam 0.25 mg daily, Folgard one tablet daily, Zocor 20 mg daily. ALLERGIES: No known drug allergies. FAMILY HISTORY: Noncontributory. 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 He does not use tobacco, only occasional alcohol. REVIEW OF SYSTEMS: Persistent mild to moderate abdominal pain controlled with oral pain medications since discharge about 1-1/2 weeks ago. No nausea, vomiting, fever, chills, chest pain, shortness of breath, stool change, urine change, neurologic changes, or rashes or endocrine symptoms. No musculoskeletal complaints. PHYSICAL EXAMINATION: Blood pressure 151/67, heart rate 91, respiratory rate 16, temperature 97.5, O2 sats 96%. Physical exam, generally - he appears in no distress, sleeping but easily roused. HEENT: Extraocular muscles intact. PUPILS - equally round and reactive to light. POSTERIOR OROPHARYNX is clear. NECK - without lymphadenopathy or masses. CHEST - clear to auscultation with good effort. HEART - regular rate and rhythm without murmur. ABDOMEN - bowel sounds present, nontender, nondistended. EXTREMITIES - no edema. NEUROLOGIC exam - unremarkable. SKIN - unremarkable. LABS: No new labs. ASSESSMENT/PLAN: 1) Status post sigmoid colectomy with reanastomosis for contained perforation with small abscess. Initially treated conservatively without surgery. Postoperative management per Surgery. He is on a BUILDING CONSULTANT for pain control and Pneumo boots for DVT prophylaxis. He has an ileus as expected with an NG tube and is n.p.o. 2) Hypertension. Will resume atenolol and lisinopril per his normal routine once he is able to take pills. Will check a basic metabolic panel in the morning. In the meantime, will use clonidine #2 patch. 2) History of CVA. Resume Plavix and aspirin in the next 1-2 days as able. 3) Hypercholesterolemia. Resume Zocor when able. 4) Hyperhomocystinemia. Resume Folgard when able. Thank you for this consultation. My colleagues will follow this patient with you while he is in the hospital. [id number] _ HORACIO APODACA MD [place]: Document: [id number] [place], [place] Name: MR#: MARLENE MCCALL [id number] CONSULTATION Page 2 of 2 LCN: [id number] DSC: [place], [place] Name: MR#: MARLENE MCCALL [id number] : Consult Date: Account #: 1950 09/09/2004 [id number] Doctor: HORACIO APODACA MD CONSULTATION Page 1 of 2 CHEF documented in this encounter Plan of Treatment Not on filedocumented as of this encounter Visit Diagnoses Not on filedocumented in this encounter
--- OUTSIDE RECORDS SUMMARY | 2022-07-25 16:09 | XMS_ITS | Encounter Summary ---
:1950 Author Organization [place] Address [facility] [place] [address] Care Team Providers Name Role Phone Abbe Charles MD Primary Care Provider Bill Thao MD Primary Care Provider [phone] Radha Montoya RN Unavailable Abbe Charles MD Primary Care Provider Sindy Moses MD Primary Care Provider Freedom Monge MD Primary Care Provider [phone] Encounter Details Date Type Department Care Team Description 10/19/2003 [facility] Scott Berry H/P (Primary Dx) [facility] MD Lencho [address] [place] [address] [address] [place], [place] [address] [phone] Social History Tobacco Use Types Packs/Day Years [...] documented as of this encounter Progress Notes 10/19/2003 11:59 PM JORDAN MAN 00:00 History And Physical-TD ALFRED) [Entered: 00:00 Beck Tender ([facility])] : 48 NOTE: This patient is not an [facility] or [facility] patient and is being admitted to the [facility] Service of Dr. Horacio Hurst et garret. CHIEF COMPLAI NT: Continuing vertigo and gait instability combined with headaches without photophobia and evolving numbness after recent cerebrovascular accident 10/06/03. HISTORY OF PRESENT ILLNESS: Marlene Mccall is a 53-year-old white male with a history of hyperlipidemia and hypertension who on 10/06/03 presented to [facility] with an acute left cerebellar cerebrovascular accident. The reader's at tention is drawn to Dr. Horacio Hurst's discharge summary of 10/08/03 for full details pertaining to that hospitalization. Most relevantly and recently, however, the patient has had progressive diffic ulty since being discharged to home on 10/08/03. On 10/10/03 the patient had a bad headache and went to see Dr. Costa at [facility]. Due to concerns regarding an intracranial bleed , the patient was sent to [facility] where an MRA of the brain was initially suggestive of an intracranial bleed. For this reason the patient was sent to [facility] wh ere it was determined that the patient in fact had not had an intracranial bleed. He was observed at [facility] for 48 hours and released. He had evolving numbness and tingling inv olving the left side of his body over the subsequent days following release and saw Dr. Lebron on 09/23 11/25. He presented again on 10/17/[address] Lebron who at that time placed the patient on Decadron, p resuming that the patient had intracranial edema at that time. The patient today on 10/19/03 became p rogressively weakened and fatigued and had progressive continuing symptoms as delineated above. He wa s unable to walk due to weakness in the left side of his body. He additionally had progressive verti go with attempts at any positional changes. For this reason his family brought him into the Emergenc y Room at [facility], and due to his failure to thrive at home the decision has been ma de to admit the patient for physical therapy and occupational therapy. The patient has no new evolvi ng neurological symptoms. His current neurological symptoms are similar to those as delineated above . They are just somewhat more intense. REVIEW OF SYSTEMS currently reveals the following: General - No fatigue. Cardiac - No chest pain. Pulmonary - No shortness of breath. GI - Slight nausea, no v omiting or diarrhea. - No pyuria or polydipsia. Rheumatologic - No arthralgias or myalgias. Psyc hiatric - No depression or anxiety. Hem/Onc - No fever, chills or night sweats. Neuro - As above. PREVIOUS MEDICAL HISTORY: 1. Hypertension. 2. Approximately two years ago he was noted to have an i rregular heart beat and underwent heart catheterization at [facility] at that time which showed only that one of his coronary vessels was 20% occluded. 3. Hyperlipidemia. 4. Cerebrovascular accid ent as delineated above. ALLERGIES: No known drug allergies. MEDICATIONS: 1. Lipitor 10 mg q.day. 2. Plavix 75 mg q.day. 3. Lisinopril 10 mg q.day. 4. Atenolol 50 mg q.day. 5. Aspirin 81 mg q.da y. 6. Metamucil 1/2 tbsp p.o. q.day. 7. Valium 5 mg p.o. t.i.d. p.r.n. 8. Decadron 4 mg p.o. t.i.d. FAMILY HISTORY: The patient's father of a myocardial infarction at age 62. His mother had th roat cancer. His sister had severe diabetes and of vascular complications at age 54. SOCIAL HI STORY: The patient is a nonsmoker, does not abuse alcohol. 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 He is . One of his daughters works at [facility]. PHYSICAL EXAMINATION: Bl ood pressure is 101/58, pulse 63, respirations 16 and regular, temperature 96.7. HEENT - Oropharynx is within normal limits. NECK - No jugular venous distention, thyromegaly or lymphadenopathy. LUNGS are clear to auscultation bilaterally without rales, wheezes or rhonchi. HEART - Regular rate and r hythm, normal S1/S2, no S3/S4, murmur, gallop or rub. ABDOMEN reveals normoactive bowel sounds, nond istended, nontender. EXTREMITIES are without cyanosis, clubbing or edema. NEURO EXAM reveals decreas ed sensation of the left upper/lower extremity, as well as decreased sensation involving the left nec k to the level of the jaw and in the cranial nerve #5 first branch dermatome on the left. There is d ecreased motor strength to hand computer systems security administrator and to hip flexion-extension on the left. DIAGNOSTICS: White b lood cell count is 18.7, hemoglobin 15.5, hematocrit 45.1, neutrophil count 88%. Basic metabolic car el is within normal limits with the exception of glucose of 209. Liver function tests are within nor mal limits. Electrocardiogram reveals sinus bradycardia with left axis deviation, no acute ST-T wave changes. ASSESSMENT/PLAN: Problem #1. Gait instability with failure to thrive status post cerebrov ascular accident. I do not feel that the patient has an evolving cerebrovascular accident at the [facility] rent time. He is, however, already on aspirin and Plavix. I do not feel that this patient requires further anticoagulation at the current time. I feel that this patient is simply having continuing re sidual deficits from his prior cerebrovascular accident. The patient requires physical therapy and o ccupational therapy. We will have the Customer Engagement Specialist see the patient to arrange for a rehab placement stay. A CT scan of the head has been obtained and is negative. I do not feel that an MRI is again necessary in the patient at this time. We will ask Dr. Enriquez, Neurology, to see the patient again con sultatively to ascertain whether or not she feels that this would be of any further benefit. Problem #2. Hyperglycemia. This is secondary to the patient's Decadron. We will check Accu-Cheks on a q.i.d . basis and provide sliding-scale regular insulin coverage. Problem #3. His elevated white blood cell count is most likely due to demargination from being placed on Decadron recently. The patient has n o clinical signs or symptoms of infection currently. Antibiotics are therefore not felt indicated by myself at the present time. This patient will be cared for while hospitalized by Dr. Horacio Nix. His outpatient care will revert to his primary medical doctor, Dr. Dereck Lebron. [id number] TD BERRY MD MT: Document: [id number] [place], [place] Name: MARLENE MCCALL HISTORY AND PHYSCIAL Page 3 of 3 L CN: [id number] DSC: [place], [place] Name: MR#: : Admit Date: SASHA MCCALL -39 1950 10/19/2003 Doctor: TD BERRY MD HISTORY AND PHYSICAL Page 1 of 3 Electronically filed by Mac Carlos 10/24/2003 8:10 AM documented in this encounter Plan of Treatment Not on filedocumented as of this encounter Visit Diagnoses Diagnosis H/P - Primary documented in this encounter Care Teams Wireless Team Member Relationship Specialty Start Date End Date Abbe Charles MD PCP - General 04/01/08 04/13/[address] [phone] Bill Thao [facility] - General Family Practice 04/14/14 07/16/14 [address] [place] [address] Abbe Charles MD PCP - General Family Practice 07/17/14 02/27/[address] [phone] Sindy Moses MD PCP - General 02/28/16 05/04/16 [facility] [address] [place] [address] Freedom Monge MD PCP - General 05/05/16 Radha Montoya, [facility] Music Mixer Nurse 04/15/14 10/26/14 documented as of this encounter
--- OUTSIDE RECORDS SUMMARY | 2022-07-25 16:09 | XMS_ITS | Encounter Summary ---
:1950 Author Organization [place] Address [address] [place] [address] Care Team Providers Name Role Phone Abbe Charles MD Primary Care Provider Encounter Details Date Type Department Care Team Description 01/02/2012 Orders Only [facility] Rita Whaley Head pains; Imaging Visual disturbance [address] [place] [address] Social History Tobacco Use Types Packs/Day Years Used Date Never Assessed Sex Assigned at Date Recorded Not on file documented as of this encounter Plan of Treatment Not on filedocumented as of this encounter Visit Diagnoses Diagnosis Head pains Headache Visual disturbance Unspecified visual disturbance documented in this encounter Care Teams Sharepoint Architect Relationship Specialty Start Date End Date Abbe Charles MD PCP - General 04/01/08 04/13/[address] [phone] documented as of this encounter
--- OUTSIDE RECORDS SUMMARY | 2022-07-25 16:09 | XMS_ITS | Encounter Summary ---
:1950 Author Organization [place] Address [facility] [place] [address] Care Team Providers Name Role Phone Abbe Charles MD Primary Care Provider Encounter Details Date Type Department Care Team Description 04/15/2008 Abstract [facility] [address] , DIAGNOSIS NOT YET [address] DEFINED [facility] [address] [facility] [place], [place] [phone] (Wo rk) Social History Tobacco Use Types Packs/Day Years Used Date Never Assessed Sex Assigned at Date Recorded Not on file documented as of this encounter Plan of Treatment Pending Results Name Type Priority Associated Diagnoses Date/Ti me GLUCOSE [54943.005] Lab Routine DIAGNOSIS NOT YET DEF INED 03/28/2008 HEMOGLOBIN A1C [81168.001] Lab Routine DIAGNOSIS NOT YET DEFINED 03/28/2008 CHOLESTEROL [53588.000] Lab Routine DIAGNOSIS NOT YET DEFINED 03/28/2008 LDL-CHOLESTEROL [59945.001] Lab Routine DIAGNOSIS NOT YET DEFINED 03/28/2008 HDL CHOLESTEROL [19232.000] Lab Routine DIAGNOSIS NOT YET DEFINED 03/28/2008 TRIGLYCERIDES [18648.000] Lab Routine DIAGNOSIS NOT Y ET DEFINED 03/28/2008 documented as of this encounter Visit Diagnoses Diagnosis DIAGNOSIS NOT YET DEFINED documented in this encounter Care Teams Inside Sales Consultant Relationship Specialty Start Date End Date Abbe Charles MD PCP - General 04/01/08 04/13/[address] [place] [address] documented as of this encounter
--- OUTSIDE RECORDS SUMMARY | 2022-07-25 16:09 | XMS_ITS | Encounter Summary ---
:1950 Author Organization [place] Address [facility]0 [facility] [place] [address] Care Team Providers Name Role Phone Abbe Charles MD Primary Care Provider Reason for Visit Reason Comments Back Pain started 2 months ago lifting at work. Yest lifted a box increase in pain Encounter Details Date Type Department Care Team Description 10/06/2011 Emergency [facility] Otf Arevalo MD Low back pain Emergency Dept [facility] [address] [facility] [address] [place] [address] [place], [place] [phone] (Wo rk) Social History Tobacco Use Types Packs/Day Years Used Date Never Assessed Sex Assigned at Date Recorded Not on file documented as of this encounter Last Filed Vital Signs Vital Sign Reading Time Taken Comments Blood Pressure 178/88 10/06/2011 11:[address] [facility] Pulse 62 10/06/2011 11:[address] [facility] Temperature 36.4 ??C (97.5 ??F) 10/06/2011 11:[address] [facility] Respiratory Rate 16 10/06/2011 11:[address] [facility] Oxygen Saturation 95% 10/06/2011 11:[address] [facility] Inhaled Oxygen Concentration - - Weight - - Height - - Body Mass Index - - documented in this encounter Discharge Instructions Discharge InstructionsOtf Arevalo MD - 10/06/2011 11:[address] [facility] Discharge Instructions Back Pain You were seen today for back pain. Back pain can have many causes, but most will get better without surgery or other specific treatment. Sometimes there is a herniated (???slipped?? ) disc. We don???t usually do MRI scans to look for these right away, since most herniated discs will get better on their own with time. Today, we did not find any evidence that your back pain was caused by a serious condition, such as an infection, fracture, or tumor. However, sometimes symptoms develop over time and cannot be found during an emergency visit, so it is very important that you follow up with your primarydoctor. Return to the Emergency Department if: You develop a fever with your back pain. You have weakness or change in sensation in one or both legs. You lose control of your bowels or bladder, or can???t empty your bladder. Your pain gets much worse. Follow-up with your doctor: Unless your pain has completely gone away, please make an appointment with your doctor within one week. You may need further management of your back pain, such as more pain medication, imaging such asan X-ray or MRI, or physical therapy. What can I do to help myself? Remain active -- People are often afraid that they will hurt their back further or delay recovery by remaining active, but this is one of the best things you can do for your back. In fact, prolonged bed rest is not recommended. Studies have shown that people with low back pain recover faster when they remain active. Movement helps to bring blood flow to the muscles and relieve muscle spasms as well as preventing loss of muscle strength. Heat -- Using a heating pad can help with low back pain during the first few weeks. Do not sleep with a heating pad, as you can be burned. Pain medications -- Take a pain medication such as, acetaminophen (Tylenol??), ibuprofen (Advil??, Nuprin ??) or naproxen (Aleve??). If you have been given a narcotic (such as codeine, hydrocodone, oroxycodone) or a muscle relaxant (such as Flexeril ?? or Soma ??), do not drive for four hours after you have taken it. If the narcotic contains acetaminophen (Tylenol), do not take Tylenol with it. Allnarcotics will cause constipation, so eat a high fiber diet. Remember that you can always come back to the Emergency Department if you are not able to see your regular doctor in the amount of time listed above, if you get any new symptoms, or if there is anything that worries you. [address] DEPART[facility] documented in this encounter Medications at Time [...] times daily as needed. clopidogrel (PLAVIX) 75 MG Take 75 mg by mouth 0 03/27/2014 tablet daily. folic acid-vit B6-vit B12 Take 1 tablet by 0 02/28/2016 (FOLGARD) 0.8-10-0.115 MG mouth daily TABS ibuprofen (ADVIL,MOTRIN) Take 1 tablet by 30 tablet 1 10/0603/21/2014 600 MG tablet mouth every 6 hours as needed for pain. methocarbamol (ROBAXIN) Take 2 tablets by 30 tablet 1 10/0603/21/2014 500 MG tablet mouth 3 times daily as needed. Multiple Vitamin Take 1 tablet by 0 (MULTI-VITAMIN) per tablet mouth daily. oxycodone-acetaminophen Take 1 tablet by 20 tablet 0 201003/21/2014 (PERCOCET) 5-325 MG per mouth every 6 hours tablet as needed for pain. documented as of this encounter ED Notes Gilda Varma - 10/06/2011 11:03 AM CST Patient to xray by cart [address] DEPARTMENT Otf Arevalo MD - 10/06/2011 10:54 AM CST Images from the original note were not included. History Chief Complaint: Back Pain HPI Damon Mccall is a 61 year old male who presents with back pain. The patient reports that yesterday he was lifting something heavy when his back gave out and he ended up on his knees. The patient reports lumbar back pain that does not radiate, more on the right. This pain is worse with movement including turning and bending over. The patient does report a previous incident approximately two months agowhere he hurt his back after lifting but at that time he was not seen or evaluated. The patient has been taking Tylenol without relief of symptoms for his current back pain but did take some muscle relaxer and OxyContin which have seemed to help. The patient denies any trouble using the bathroom, saddle anesthesia, numbness or weakness. The patient was also unable to sleep last night due to the pain. Allergies: No known drug allergies. Medications: Klonopin Prinvil, Zestril Tenormin Zocor Folgard Plavix Aspirin Past Medical History: Pre-diabetes Stroke x2 Past Surgical History: No surgical history reported. Family / Social History: No relevant family history. The patient is and is here with his . Review of Systems Genitourinary: Negative for difficulty urinating. Negative for saddle anesthesia Musculoskeletal: Positive for back pain (low). Neurological: Negative for weakness and numbness. All other systems reviewed and are negative. Physical Exam First Vitals: BP: 162/92 mmHg Heart Rate: 57 Temp: 98 ??F (36.7 ??C) Resp: 16 SpO2: 96 % Physical Exam Constitutional: He is oriented to person, place, and time. He appears well-developed. HENT: Head: Normocephalic and atraumatic. Right Ear: External ear normal. Mouth/Throat: Oropharynx is clear and moist. Eyes: Conjunctivae and EOM are normal. Pupils are equal, round, and reactive to light. Neck: Normal range of motion. Neck supple. No JVD present. Cardiovascular: Normal rate, regular rhythm and normal heart sounds. Pulmonary/Chest: Effort normal and breath sounds normal. Abdominal: Soft. Bowel sounds are normal. He exhibits no distension. No tenderness. He has no rebound. Musculoskeletal: Normal range of motion. Back: Lymphadenopathy: He has no cervical adenopathy. Neurological: He is alert and oriented to person, place, and time. He displays normal reflexes. No cranial nerve deficit. He exhibits normal muscle tone. Coordination normal. Skin: Skin is warm and dry. Psychiatric: He has a normal mood and affect. His behavior is normal. Judgment normal. Emergency Department Course Imaging: XR Lumbar Spine, 2-3 views: Degenerative, arthritic changes to the spine, no pathological fracture. Reading per Dr. Arevalo. Emergency Department Course: I reviewed the patient's medical record. 10:55 AM The patient was seen and examined by myself. I discussed the course of care with the patient including diagnostic studies. He understands and is agreeable to the plan. Rechecked the patient, findings and plan explained to the patient. Patient discharged home, status improved, with instructions regarding supportive care, medications, and reasons to return as well as the importance of close follow-up was reviewed. Impression & Plan Medical Decision Making: The patient presents with low back pain. Examination demonstrates musculoskeletal back pain without any concerns for intra-abdominal pathology or lumbar radiculopathy. We will offer medications for pain. X-ray was performed due to age to rule out pathological fracture or compression fracture. These are negative. Patient will be recommended to follow up in the clinic. Diagnosis: 1. Musculoskeletal low back pain Keely Rolon, dontrell serving as a scribe at 10:55 AM on 10/06/2011 to document services personallyperformed by Dr. Arevalo, based on my observations and the provider's statements to me. Otf Arevalo MD 10/07/[address] DEPARTMENT documented in this encounter Plan of Treatment Not on filedocumented as of this encounter Procedures Procedure Name Priority Date/Time Associated Diagnosis Comme nts XR LUMBAR SPINE 2/3 STAT 10/06/2011 11:19 AM R esults for this VIEWS [address] [facility] procedure are i n the results section. documented in this encounter Results Lumbar spine XR, 2-3 views (10/06/2011 11:[address] DE[facility]) Anatomical Region Laterality Modality T-spine, L-spine, Abdomen/Pelvis Other Specimen (Source) Anatomical Collection Method Collection Time Re ceived Time Location / / Volume Laterality 10/06/2011 11:[address] [facility] Impressions 10/06/2011 12:[address] [facility] LUMBAR SPINE 2-3 VIEW* Oct 06, 2011 11:1 9:00 AM HISTORY: ??eval back pain FINDINGS: Degenerative disc disease at t he L5 level. Mild lumbar curve to the left. Mild degenerative hypertrop hic changes throughout the lumbar spine. No other findings. Otf Arevalo MD IMG DIAGNOSTIC IMAGING ORDER BRICE documented in this encounter Visit Diagnoses Diagnosis Low back pain Lumbago documented in this encounter Care Teams District Wire Chief Relationship Specialty Start Date End Date Abbe Charles MD PCP - General 04/01/08 04/13/[address] [phone] documented as of this encounter
--- OUTSIDE RECORDS SUMMARY | 2022-07-25 16:09 | XMS_ITS | Encounter Summary ---
:1950 Author Organization [place] Address [address] [place] [address] Care Team Providers Name Role Phone Unavailable Primary Care Provider Unavailable Encounter Details Date Type Department Care Team Description 06/19/2006 [facility] [address] [place] [address] (Wo rk) Social History Tobacco Use Types Packs/Day Years Used Date Never Assessed Sex Assigned at Date Recorded Not on file documented as of this encounter Plan of Treatment Not on filedocumented as of this encounter Procedures Procedure Name Priority Date/Time Associated Diagnosis Comme nts HC X-RAY FOOT Routine 06/19/2006 11:09 AM Results for this COMPLETE >=3 VIEWS CDT procedure are in the results section. documented in this encounter Results X-RAY FOOT 3+ VW (06/19/2006 11:09 AM CDT) Specimen (Source) Anatomical Collection Method Collection Time Re ceived Time Location / / Volume Laterality 06/19/2006 11:09 AM CDT Impressions RADIOLOGY RESULTS - 06/21/2006 9:10 AM C DT THREE VIEW RIGHT FOOT ?? CLINICAL HISTORY: ??Injury. ? FINDINGS: ??Negative. Dereck Santiago MD GENERAL IMAGING Performing Organization Address City/State/ZIP Code Phon e Number RADIOLOGY RESULTS documented in this encounter Visit Diagnoses Not on filedocumented in this encounter
--- OUTSIDE RECORDS SUMMARY | 2022-07-25 16:09 | XMS_ITS | Encounter Summary ---
:1950 Author Organization [facility] Address [address] [place] [address] Care Team Providers Name Role Phone Unavailable Primary Care Provider Unavailable Encounter Details Date Type Department Care Team Description 04/06/2006 GI Procedure [facility] Damian Hancock MD None Endoscopy [facility] RETIRED XXX [address] [place] [address] [place] [address] [phone] Social History Tobacco Use Types Packs/Day Years Used Date Never Assessed Sex Assigned at Date Recorded Not on file documented as of this encounter Plan of Treatment Not on filedocumented as of this encounter Procedures Procedure Name Priority Date/Time Associated Diagnosis Comme [facility] UPPER GI ENDOSCOPY Routine 04/06/2006 7:05 AM Res ults for this CDT procedure are i n the results section. documented in this encounter Results UPPER GI ENDOSCOPY (04/06/2006 7:05 AM CDT) Component Value Ref Test Analysis Performed At [facility] Method Time Signature Upper GI Endoscopy RADIOLOGY Endoscopy RESULTS Patient Name: Damon Mccall ?Gender: M ? Procedure Date: 04/06/2006 7: 05 AM ? Date of : 1950 ?Age: 55 ? Admit Type: Outpatient ? Attending MD: Damian Hancock ? Procedure: ?Upper GI endoscopy Indications: ?Dysphagia Providers: ?Damian Hancock MD Referring MD: ?? Abbe Charles MD Medicines: ?Fentanyl 100 mcg IV, Midazolam 2 mg IV, Benzocaine spray Complications: ??No immediate complications Procedure: ?- A History and Physical has been perfo rmed, and patient ?medi cation allergies have been reviewed. The patient The ?risk s and benefits of the procedure and the sedation options ?and risks were discussed with the patient. All questions were ?answered and informed consent was obtained. Patient ?iden tification and proposed procedure were verified prior to ?the procedure by the physician in the procedure room. Mental ?Stat us Examination: normal. Respiratory Examination: clear to ?ausc ultation. CV Examination: normal. ASA Grade Assessment: ?P2 A patient with mild systemic disease. After reviewing the ?risk s and benefits, the patient was deemed in satisfactory ?cond ition to undergo the procedure. The anesthesia plan was ?to u se moderate sedation / analgesia (conscious sedation). ?Imme diately prior to administration of medications, the ?alexandru ent was re-assessed for adequacy to receive sedatives. ?The heart rate, respiratory rate, oxygen saturations, blood ?pres sure, adequacy of pulmonary ventilation, and response to ?care were monitored throughout the procedure. The physical ?stat us of the patient was re-assessed after the procedure. ?Afte r obtaining informed consent, the endoscope was passed ?unde r direct vision. Throughout the procedure, the patient's ?bloo d pressure, pulse, and oxygen saturations were monitored ?cont inuously. The [id number] was introduced through ?the mouth, and advanced to the second part of duodenum. The ?uppe r GI endoscopy was accomplished without difficulty. The ?patient tolerated the procedure well . ? Findings: ? A benign-appearing, i ntrinsic stenosis was found thirty-nine cm from the ? incisors and was traversed. This was succ essfully dilated with a 18 mm ? esophageal balloon di lator. Biopsy with a cold forceps was performed for ? histology. The entire examined stomach and gastroesophageal junction (on ? retroflexion) were normal. The duodenal bulb and 2nd part of the ? duodenum were normal. ? Impression: ? - Benign-a ppearing esophageal stricture. Dilated and biopsied. ?- Normal stomach. ?- Normal duodenal bulb and 2nd part of the duodenum. ?- I suspect some element of cricopharyngeal spasm here. Recommendation: - Discharge patient to home (ambulatory). ?- Pa ferny should telephone endoscopist in 1 week. If still ?having dysphagia then consider cine- esophagram. ?- Return to primary care provider [place] N. ? CPT Code(s): ?68423, Upper gastroint estinal endoscopy including esophagus, ?stomach, and either the duodenum and /or jejunum as ?appr opriate; with balloon dilation of esophagus (less than 30 ?mm diameter) ?4323 9, Upper gastrointestinal endoscopy including esophagus, ?stomach, and either the duodenum and /or jejunum as ?appropriate; with biopsy, single or multiple ICD Code(s): ?530.3, Stricture and Stenosis of Esophagus ?787.2, Dysphagia The codes documented in this report are prelimin tatyana and upon sponsorship coordinator review may be revised to meet current compliance requirements. David Hancock M.D Damian Hancock MD Signed Date: 04/06/2006 7:56 AM Number of Addenda: 0 I was physically present for the entire viewing portion of t he exam. Note generated on 04/06/2006 7:04 AM Upper GI RADIOLOGY Endoscopy RESULTS Specimen (Source) Anatomical Collection Method Collection Time Re ceived Time Location / / Volume Laterality 04/06/2006 7:05 AM CDT Damian Hancock MD PROCEDURES Performing Organization Address City/State/ZIP Code Phon e Number RADIOLOGY RESULTS documented in this encounter Visit Diagnoses Not on filedocumented in this encounter
--- OUTSIDE RECORDS SUMMARY | 2022-07-25 16:09 | XMS_ITS | Encounter Summary ---
:1950 Author Organization [facility] Address [address] [place] [address]. [place] [address] Care Team Providers Name Role Phone Unavailable Primary Care Provider Unavailable Encounter Details Date Type Department Care Team Description 08/27/2004 Consultation [facility] Nick Cedillo MD [facility] [address] [facility] [id number] [place] [phone] Social History Tobacco Use Types Packs/Day Years Used Date Never Assessed Sex Assigned at Date Recorded Not on file documented as of this encounter Consult Notes Nick Cedillo - 08/25/2004 12:00 AM CUTTER [employer]REL DRUM : 46 HISTORY OF PRESENT ILLNESS: This is a 54-year-old gentleman with a medical history significant for strokes apparently one year ago with a prolonged but good recovery and also a couple episodes of diverticulitis in the past including one in which he was told there was an inflammatory mass associated with the colon. He has also been told that he had a hole in his heart and his blood pressure should be kept in the 130/70 range. The exact cause of his stroke was not determined. Patient denies any drug allergies. He does report an irregular heart beat as well as hypertension. He has occasional gastroesophageal reflux and has recently had some constipation, though he began to have frequent loose stools yesterday in fairly large volume. This is now resolved. He reports increased cholesterol. Patient has not been feeling entirely well over the last three weeks, with some vague abdominal discomfort. This, however, has progressed somewhat over the last week or so. It was actually feeling better today than it had for the last couple of days. He was seen yesterday in the office of his primary care physician and CT scan of the abdomen was ordered for this morning. This showed diverticulitis with contained perforation. It was felt the patient should be admitted for IV antibiotic therapy. The patient is feeling slightly more discomfort now than he was earlier this morning. SOCIAL HISTORY: The patient is . His daughter works in the emergency room here at [facility]. He does not smoke. He drinks occasional alcohol. 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 MEDICATIONS: Medication list is reviewed, these include Plavix, clonazepam, Zocor, lisinopril and atenolol as well as folic acid and Levaquin recently. PHYSICAL EXAMINATION: The patient is in no obvious distress. Temperature is 98.8, pulse is 75, respirations 18, blood pressure is 151/83, weight is 116 kg. The LUNGS are clear to auscultation. CARDIOVASCULAR examination shows a regular rate and rhythm. The SKIN shows no evidence of jaundice. The EYES show no evidence of scleral icterus. The ABDOMEN is soft with minimal left lower quadrant pain. There is no palpable mass. LABORATORY DATA: Lab work reveals a white blood cell count of 10.6 with a hemoglobin of 12.8, potassium is 3.9, sodium 140, creatinine is 1. CT scan of the abdomen revealed a phlegmon adjacent to the sigmoid colon with a few bubbles of air within it, suggesting contained perforation. There is no evidence of free intraperitoneal air. ASSESSMENT/PLAN: This is a patient with recurring diverticulitis and in fact, is his second fairly severe episode with associated phlegmon, the first being in June of 2002. He was not admitted to the hospital at that time. At this point, I would like to try to treat with IV antibiotics and try to get this areato calm down but I have strongly recommended to the patient that he consider surgical resection of the region with his recurrent problems. At this point, will follow along for his clinical course and if he is doing well, hopefully he can be discharged to home on oral antibiotics in two to three days. He would then follow-up with me in the office and we would need to consider a barium enema prior to surgery to further delineate the extent of his diverticula. I will follow the patient along with you. Thank you for involving me in his care. [id number]_ NICK CEDILLO MD MT: Document: [id number] [place], [place] Name: MR#: MARLENE BUNN -[id number] CONSULTATION Page 2 of 2 LCN: MS3 DSC: [place], [place] Name: MR#: MARLENE BUNN -[id number] : Consult Date: Account #: 1950 [id number] Doctor: NICK CEDILLO MD CONSULTATION Page 1 of 2 [facility]REL [facility] documented in this encounter Plan of Treatment Not on filedocumented as of this encounter Visit Diagnoses Not on filedocumented in this encounter
--- OUTSIDE RECORDS SUMMARY | 2022-07-25 16:09 | XMS_ITS | Encounter Summary ---
:1950 Author Organization [facility] Address [address] [place] [address]. [place] [address] Care Team Providers Name Role Phone Abbe Charles MD Primary Care Provider Encounter Details Date Type Department Care Team Description 06/24/2008 Results Only [facility] Char Espana NP Hospital Results [address] [id number] (Wo rk) Social History Tobacco Use Types Packs/Day Years Used Date Never Assessed Sex Assigned at Date Recorded Not on file documented as of this encounter Plan of Treatment Not on filedocumented as of this encounter Procedures Procedure Name Priority Date/Time Associated Diagnosis Comme nts [facility] LT X-RAY HAND Routine 06/24/2008 11:57 AM Res ults for this 3+ VW CDT procedure are i n the results section. [facility] LT X-RAY WRIST Routine 06/24/2008 11:57 AM Re sults for this 3+ VW CDT procedure are i n the results section. documented in this encounter Results LT X-RAY WRIST 3+ VW (06/24/2008 11:57 AM CDT) Specimen (Source) Anatomical Collection Method Collection Time Re ceived Time Location / / Volume Laterality 06/24/2008 11:57 AM CDT Impressions RADIOLOGY RESULTS - 06/25/2008 3:04 PM C DT LEFT WRIST, 3 OR MORE VIEWS ?? Jun 24, 11:57 AM HISTORY: Crush injury left wrist and pro ximal metacarpals. IMPRESSION: Three views left wrist. No f racture or dislocation. No significant soft tissue swelling. Char Espana [facility] Performing Organization Address City/State/ZIP Code Phon e Number RADIOLOGY RESULTS LT X-RAY HAND 3+ VW (06/24/2008 11:57 AM CDT) Specimen (Source) Anatomical Collection Method Collection Time Re ceived Time Location / / Volume Laterality 06/24/2008 11:57 AM CDT Impressions RADIOLOGY RESULTS - 06/25/2008 3:04 PM C DT LEFT HAND, 3 OR MORE VIEWS ?? Sep 2, 200 8, 11:57 AM HISTORY: Crush injury to wrist and secon d, third and fourth metacarpals. IMPRESSION: Three views left hand. No fr acture or dislocation. No significant soft tissue swelling. 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 Char Espana [facility] Performing Organization Address City/State/ZIP Code Phon e Number RADIOLOGY RESULTS documented in this encounter Visit Diagnoses Not on filedocumented in this encounter Care Teams [employer] Relationship Specialty Start Date End Date Abbe Charles MD PCP - General 04/01/08 04/13/[address] [id number] documented as of this encounter
--- OUTSIDE RECORDS SUMMARY | 2022-07-25 16:09 | XMS_ITS | Encounter Summary ---
:1950 Author Organization [facility] Address [facility] [place] [address] Care Team Providers Name Role Phone Unavailable Primary Care Provider Unavailable Encounter Details Date Type Department Care Team Description 08/30/2004 Discharge Summary [facility] Gilles Anand ([facility] Bucio MD Hospitalists [facility] [address] [place], [place] [id number] (Wo rk) Social History Tobacco Use Types Packs/Day Years Used Date Never Assessed Sex Assigned at Date Recorded Not on file documented as of this encounter Discharge Summaries Gilles Anand - 08/29/2004 12:00 AM MANAGER CASINO : 46 PRINCIPLE FINAL DIAGNOSES: 1. Perforated diverticulitis. 2. Hypertension. 3. Cerebrovascular accident with mild left hemiparesis. PRINCIPLE PROCEDURES: 1) General surgery consult. 2) Abdominal CT scan x 2. 3) Antibiotic therapy. REASON FOR ADMISSION: Please see dictated history and physical. In brief, Mr. Mccall is a 54-year-old male who was seen in the emergency department on the day of admission complaining of left lower quadrant pain. The patient had a CT scan done in the emergency room which showed a perforated diverticulitis of the sigmoid colon. The patient was admitted to the hospital service for further evaluation and treatment. HOSPITAL COURSE: Perforated sigmoid diverticulitis. On admission, a general surgery consultation was obtained. The patient was treated with intravenous Zosyn during his hospital stay. As the patient appeared nontoxic and actually quite well, given his CT scan and results, a decision was made to pursue conservative therapy. The patient was initially made NPO for the first several days of his hospital stay. He responded well to intravenous Zosyn therapy. He had some mild febrile episodes during his stay. He gradually improved with conservative therapy. The day prior to discharge, a repeat abdominal CT scan was obtained which essentially per the radiologist was unchanged from the previous study obtained on the day of admission. The study did show what appeared to be a 3 cm abscess near the sigmoid colon. These findings were discussed with general surgery. As the patient was clinically well and tolerating food on the day of discharge, a decision was made not to pursue interventional radiology therapy to try to drain the area of the abscess as it was rather small. The patient will be discharged on an additional two weeks of Augmentin therapy to be taken one tablet p.o. b.i.d. The patient will follow up with Dr. Cedillo of general surgery next week for further evaluation. I suspect that if the patient fully recovers from this acute course, he will undergo elective partial colectomy in one to two months with removal of his sigmoid colon to prevent reoccurrence of diverticulitis. DISCHARGE MEDICATIONS: 1) Augmentin one tablet p.o. b.i.d. 2) Vicodin p.r.n. 3) Plavix 75 mg p.o. daily. 4) Clonazepam 0.5 mg at bedtime. 5) Lisinopril 20 mg b.i.d. 6) Atenolol 50 mg in the morning and 25 mg at night. 6) Folgard one tablet daily. DISCHARGE DIET: The patient was instructed to gradually proceed into a regular diet. He should attempt a full liquid for the next one to two days then start to eat more substantial food. DISCHARGE ACTIVITY: As tolerated. [id number] _ GILLES ANAND MD MT: Document: [id number] [place], [place] Name: MR#: MARLENE MCCALL -39 Please refer to the Nursing Discharge Information Sheet for more detailed information regarding diet, physical actvity limitations, medications and other pertinent instructions given to this patient upon discharge. DISCHARGE SUMMARY Page 2 of 2 LCN: MS3 DSC: 08/29/2004 [place], [place] Name: MR#: MARLENE MCCALL -39 : Admit Date: Discharge Date: Account #: 1950 08/25/2004 08/29/2004 [id number] Doctor: GILLES ANAND MD Please refer to the Nursing Discharge Information Sheet for more detailed information regarding diet, physical activity limitations, medications and other pertinent instructions given to this patient upon discharge. DISCHARGE SUMMARY Page 1 of 2 GER CASINO documented in this encounter Plan of Treatment Not on filedocumented as of this encounter Visit Diagnoses Not on filedocumented in this encounter
--- OUTSIDE RECORDS SUMMARY | 2022-07-25 16:09 | XMS_ITS | Encounter Summary ---
:1950 Author Organization [place] Address [facility] [place] [address] Care Team Providers Name Role Phone Abbe Charles MD Primary Care Provider Reason for Visit Reason Comments Eye Problem episodes x2 of spots in visi on, similar to prior CVA Encounter Details Date Type Department Care Team Description [facility] Emergency Dep gwendolyn Chin MD History of stroke [address] [facility] [place], [place] [address] [address] [facility] [place] [phone] [place], [place] [address] (Wo rk) Social History Tobacco Use Types Packs/Day Years Used Date Never Assessed Sex Assigned at Date Recorded Not on file documented as of this encounter Last Filed Vital Signs Vital Sign Reading Time Taken Comments Blood Pressure 160/81 12/14/2011 1:30 PM APPIAN DEVELOPER Pulse 57 12/14/2011 10:11 AM APPIAN DEVELOPER Temperature 36.7 ??C (98 ??F) 12/14/2011 10:11 AM APPIAN DEVELOPER Respiratory Rate 16 12/14/2011 10:11 AM APPIAN DEVELOPER Oxygen Saturation 99% 12/14/2011 2:33 PM APPIAN DEVELOPER Inhaled Oxygen Concentration - - Weight 113.4 kg (250 lb) 12/14/2011 10:11 AM APPIAN DEVELOPER Height - - Body Mass Index 32.98 04/15/2008 12:30 PM CDT documented in this encounter Discharge Instructions Discharge InstructionsOtf Arevalo MD - 12/14/2011 2:14 PM APPIAN DEVELOPER Please follow up with Opthamology and Neurology. Return with speech Disturbance, weakness in arm and leg, or other new symptoms. AN DEVELOPER AttachmentsThe following attachments cannot be sent through Care Everywhere. T.I.A.: TRANSIENT ISCHEMIC ATTACK (CROATIAN)documented in this encounter Medications at Time of [...] by 0 (MULTI-VITAMIN) per mouth daily. tablet oxycodone-acetaminophen Take 1 tablet by 20 tablet 0 201003/21/2014 (PERCOCET) 5-325 MG per mouth every 6 hours tablet as needed for pain. documented as of this encounter ED Notes Micky Waller RN - 12/14/2011 1:01 PM CST Back from MRI AN DEVELOPER Otf Arevalo MD - 12/14/2011 10:46 AM CST History Chief Complaint: Spots in eyes HPI Damon Mccall is a 61 year old male with a history of 2 strokes who presents with spots in eyes. The patient states yesterday (1 pm) and today (7 am) he has had 2 episodes of blurry vision that lasts about 1/2 hour and does not allow him to read, drive or see things fully without tipping his head. Heexplains both times this blurred vision has been associated with a headache. The patient states this happens tho him about once every 6 months but he has had strokes in the past and these symptoms occurred just prior to the strokes so he was concerned. He explains here in the emergency department he has a mild headache. Of note, the patient states yesterday and today when his symptoms of blurred vision and headache occurred he had not eaten anything all day. The patient denies fever, chills, appetite or activity change, congestion, runny nose, sore throat, cough, shortness of breath, chest pain, leg swelling, palpitations, abdominal pain, diarrhea, nausea, vomiting, rash, back pain, dysuria, difficulty urinating, dizziness, lightheadedness, numbness or weakness in extremities or confusion. Allergies: No known allergies Medications: Clonazepam Lisinopril Atenolol Simvastatin Folgard Plavix MVI Aspirin Ibuprofen Robaxin Percocet Past Medical History: Borderline diabetes Hypertension Cerebral artery occlusion with cerebral infarction Past Surgical History: GI surgery Family History: No family history Marital Status: Social History: The patient's is here. Review of Systems Constitutional: Negative for fever, chills, activity change and appetite change. HENT: Negative for congestion, sore throat and rhinorrhea. Eyes: Positive for visual disturbance. Respiratory: Negative for cough and shortness of breath. Cardiovascular: Negative for chest pain, palpitations and leg swelling. Gastrointestinal: Negative for nausea, vomiting, abdominal pain and diarrhea. Genitourinary: Negative for dysuria and difficulty urinating. Musculoskeletal: Negative for back pain. Skin: Negative for rash. Neurological: Positive for headaches. Negative for dizziness, weakness, light- headedness and numbness. Psychiatric/Behavioral: Negative for confusion. All other systems reviewed and are negative. Physical Exam First Vitals: BP: 152/89 mmHg Pulse: 57 Temp: 98 ??F (36.7 ??C) Resp: 16 Weight: 113.399 kg (250 lb) SpO2: 96 % Physical Exam Constitutional: He [...] no rebound. Musculoskeletal: Normal range of motion. Lymphadenopathy: He has no cervical adenopathy. Neurological: He is alert and oriented to person, place, and time. He displays normal reflexes. No cranial nerve deficit. He exhibits normal muscle tone. Coordination normal. Skin: Skin is warm and dry. Psychiatric: He has a normal mood and affect. His behavior is normal. Judgment normal. Emergency Department Course ECG: Rate 52 bpm. NV interval 190. QRS duration 108. QT/QTc 456/424. P-R-T axes 38 - 43 34. Sinus bradycardia. Left axis deviation. Moderate voltage criteria for LVH, may be normal variant. Abnormal ECG. Performed at 1157. Read by Dr. Arevalo at 1203. Imaging: MRI angiogram neck: 1. Carotid bifurcations have no significant stenosis. 2. Approximately 50% stenosis of the origin of the left vertebral artery is suspected, unchanged from 10/07/2003, per radiology. MRI brain: 1. Old infarct left cerebellar hemisphere. 2. Minimal chronic white matter disease and a few scattered old white matter infarcts. 3. No recent infarct, intracranial hemorrhage, or mass, per radiology. Laboratory: CBC: WNL(WBC 6.3, HGB 14.4, Plts 183) BMP: WNL(Creatinine 1.02) INR: 0.97 Troponin: <0.012 Interventions: Sodium chloride 0.9% 60 mL IV (includes bolus + continuous drip) Emergency Department Course: I examined the patient and discussed a plan of care. IV inserted and blood drawn. The patient was placed on oxygen via nasal cannula and continuous cardiac monitoring and pulse oximetry. The patient was sent for the following imaging: MRI angiogram neck and MRI brain. See results above. I spoke with Dr. Gleason of Neurology regarding treatment for the patient. The patient reported feeling improved after the above interventions. Rechecked the patient, findings and plan explained to the patient. Patient discharged home, status improved, with instructions regarding supportive care, medications, and reasons to return as well as the importance of close follow-up was reviewed. Impression & Plan Medical Decision Making: The patient presents with spots in his vision binocularly with symptoms suggestive of his previous stroke. MRI is negative. 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 I recommended followup with Neurology. For now I do not feel admission is identified. Plan: continue Plavix. Start B12 and Magnesium. Followup with Dr. Rahman in clinic. Diagnosis: 1. Intermittent binocular visual changes. 2. History of cerebral vascular infarction. I, Xena Quintero, am serving as a Scribe on 12/14/2011 at 10:46 AM to personally document the services performed by Dr. Arevalo based upon my observations and the provider's statements to me. Kristen De Jesus 12/14/2011 [facility] EMERGENCY DEPARTMENT Otf Arevalo MD 12/20/11 0012 AN DEVELOPER Nettie Quinn RN - 12/14/2011 10:13 AM CST In Triage: ABC's intact. Alert and oriented x 3. Clonazepam Lisinopril Atenolol Simvastatin Foltabs Plavix Multivit ASA AN DEVELOPER documented in this encounter Miscellaneous Notes Initial Assessments - Ra Provider - 02/23/2012 3:48 PM CDT documented in this encounter Plan of Treatment Not on filedocumented as of this encounter Procedures Procedure Name Priority Date/Time Associated Comments Diagnosis MRA NECK (CAROTIDS) STAT 12/14/2011 1:20 PM Re sults for this W/O & W CONTRAST APPIAN DEVELOPER procedure a re in the results section. MR BRAIN W/O & W STAT 12/14/2011 12:46 Results for this CONTRAST PM APPIAN DEVELOPER procedure are i n the results section. CBC WITH PLATELETS & STAT 12/14/2011 11:59 Res ults for this DIFFERENTIAL AM APPIAN DEVELOPER procedure are i n the results section. TROPONIN I STAT 12/14/2011 11:59 Results for this AM APPIAN DEVELOPER procedure are i n the results section. INR STAT 12/14/2011 11:59 Results for this AM APPIAN DEVELOPER procedure are i n the results section. BASIC METABOLIC PANEL STAT 12/14/2011 11:59 Re sults for this AM APPIAN DEVELOPER procedure are i n the results section. EKG 12-LEAD, TRACING STAT 12/14/2011 11:57 Res ults for this ONLY AM APPIAN DEVELOPER procedure are i n the results section. HIM ECG SCAN STAT 12/14/2011 documented in this encounter Results MRI Angiogram neck w & w/o contrast* (12/14/2011 1:20 PM APPIAN DEVELOPER) Anatomical Region Laterality Modality Neck, SUBRAD MR NEURO, P MR NEURO Othe r Specimen (Source) Anatomical Collection Method Collection Time Re ceived Time Location / / Volume Laterality 12/14/2011 1:20 PM APPIAN DEVELOPER Impressions 12/14/2011 2:18 PM APPIAN DEVELOPER MRA CAROTIDS December 14, 2011 1:20:00 P M HISTORY: Headache and blurred vision. TECHNIQUE: 2D [id number] MR angiogra m of the neck without contrast and 3D MR angiogram of the neck with 20 mL gadolinium IV. Estimates of carotid stenoses are made relative to th e distal internal carotid artery diameters except as noted. COMPARISON: MR brain today. MRA 10/07/20 03. FINDINGS: ?? Right carotid: Minimal stenosis of the o rigin of the ICA, less than 20%. Left carotid: Normal. Vertebral and basilar: ??Proximal-most l eft vertebral artery may have a moderate stenosis at its origin as was a lso noted on 10/07/2003. This can be difficult area to image but I bel ieve there is a moderate probably 50% stenosis at the origin. Aortic arch and intrathoracic arteries: Normal. IMPRESSION: 1. Carotid bifurcations have no signific ant stenosis. 2. Approximately 50% stenosis of the ryan gin of the left vertebral artery is suspected, unchanged from 09/22. Otf Areavlo MD [facility] MRI ORDERABLES MRI Brain w & w/o contrast (12/14/2011 12:46 PM APPIAN DEVELOPER) Anatomical Region Laterality Modality Head, SUBRAD MR NEURO, UMP MR NEURO Othe r Specimen (Source) Anatomical Collection Method Collection Time Re ceived Time Location / / Volume Laterality 12/14/2011 12:46 PM APPIAN DEVELOPER Impressions 12/14/2011 12:59 PM APPIAN DEVELOPER MRI BRAIN WITHOUT AND WITH CONTRAST ??Fe b 2011 12:47 PM HISTORY: Headache and blurred vision. COMPARISON: MR brain 10/20/2003. TECHNIQUE: Sagittal T1, axial T2, axial FLAIR, axial GRE, axial diffusion scan, coronal FLAIR, axial pos t Gd enhanced T1 weighted images. 10 mL Gadavist IV. FINDINGS: There is no evidence for recen t infarction. There is a 3.5 cm area of encephalitis in the inferior aspect of the left cerebellar hemisphere due to an old infarct. This w as an infarct that was in its acute phase on the prior MR study of and has matured in the interval as expected. There is mild nons pecific subcortical white matter disease in both hemispheres consi stent with chronic small vessel ischemic change and a few scatter ed old white matter infarcts in both hemispheres. There is no intracr anial hemorrhage or mass. Sinuses are clear. IMPRESSION: 1. Old infarct left cerebellar hemispher e. 2. Minimal chronic white matter disease and a few scattered old white matter infarcts. 3. No recent infarct, intracranial hemor rhage, or mass. Otf Arevalo MD [facility] MRI ORDERABLES Troponin I (12/14/2011 11:59 AM APPIAN DEVELOPER) athologist Signature Troponin I ES <0.012 0.000 - [place] 0.034 ug/L [facility] Specimen Anatomical Collection Method Collection Time Receive d Time (Source) Location / / Volume Laterality Blood specimen 12/14/2011 11:59 2 (specimen) AM APPIAN DEVELOPER 12:07 PM APPIAN DEVELOPER Otf Arevalo MD LAB - BLOOD ORDERABLES Performing Organization Address City/State/ZIP Code Phon e Number [facility] [address] [facility] INR (12/14/2011 11:59 AM APPIAN DEVELOPER) athologist Signature INR 0.97 0.86 - 1.14 [facility] LAB Specimen Anatomical Collection Method Collection Time Receive d Time (Source) Location / / Volume Laterality Blood specimen 12/14/2011 11:59 2 (specimen) AM APPIAN DEVELOPER 12:07 PM APPIAN DEVELOPER Otf Arevalo MD LAB - BLOOD ORDERABLES Performing Organization Address City/[facility]/ZIP Code [address] [facility] Basic metabolic panel (12/14/2011 11:59 AM APPIAN DEVELOPER) athologist Signature Sodium 138 133 - 144 [place] mmol/L [facility] Potassium 4.3 3.4 - 5.3 [place] mmol/L [facility] Chloride 104 94 - 109 [place] mmol/L [facility] Carbon Dioxide 29 20 - 32 [place] mmol/L [facility] Anion Gap 6 6 - 17 [place] mmol/L [facility] Glucose 86 60 - 99 [place] mg/dL [facility] Urea Nitrogen 18 7 - 30 [place] mg/dL [facility] Creatinine 1.02 0.66 - [facility] 1.25 mg/dL [facility] GFR Estimate 74 >60 [place] mL/min/1.[address] LAB GFR Estimate If 89 >60 [place] Black mL/min/1.[address] [place] [address] LAB Calcium 9.3 8.5 - 10.4 [place] mg/dL [facility] Specimen Anatomical Collection Method Collection Time Receive d Time (Source) Location / / Volume Laterality Blood specimen 12/14/2011 11:59 2 (specimen) AM APPIAN DEVELOPER 12:07 PM APPIAN DEVELOPER Otf Arevalo MD LAB - BLOOD ORDERABLES Performing Organization Address City/[facility]/ZIP Code [facility] [address] [place], [place] [address] [facility] (ABNORMAL) CBC with platelets differential (12/14/2011 11:59 AM APPIAN DEVELOPER) [facility] gist Method Time Signature WBC 6.3 4.0 - [place] 11.0 [facility] [address] LAB RBC Count 4.73 4.4 - 5.9 [place] 10e12/L [facility] Hemoglobin 14.4 13.3 - [place] 17.7 g/dL [facility] Hematocrit 42.5 40.0 - [place] 53.0 % [facility] MCV 90 78 - 100 [facility] LAB MCH 30.4 26.5 - [place] 33.0 pg [facility] MCHC 33.9 31.5 - [place] 36.5 g/dL [facility] RDW 12.2 10.0 - [place] 15.0 % [facility] Platelet Count 183 150 - [address] LAB Diff Method Automated [facility] LAB % Neutrophils 53.3 40 - 75 % [facility] % Lymphocytes 31.1 20 - 48 % [facility] LAB % Monocytes 10.4 0 - 12 % [facility] % Eosinophils 3.5 0 - 6 % [facility] % Basophils 1.1 0 - 2 % [facility] % Immature 0.6 (H) 0 - 0.4 % [place] Granulocytes [facility] Absolute 3.4 1.6 - 8.3 [place] Neutrophil 10e9/[facility] LAB Absolute 2.0 0.8 - 5.3 [place] Lymphocytes 10e9[facility] Absolute 0.7 0.0 - 1.3 [place] Monocytes 10e9[facility] Absolute 0.2 0.0 - 0.7 [place] Eosinophils 10e9[facility] Absolute 0.1 0.0 - 0.2 [place] Basophils [address] [place] [address] LAB Abs Immature 0.0 0 - 0.03 [place] Granulocytes [address] [place] [address] LAB Specimen Anatomical Collection Method Collection Time Receive d Time (Source) Location / / Volume Laterality Blood specimen 12/14/2011 11:59 2 (specimen) AM APPIAN DEVELOPER 12:07 PM APPIAN DEVELOPER Otf Arevalo MD LAB - BLOOD ORDERABLES Performing Organization Address City/State/ZIP Code Phon e Number [facility] [address] [place], [place] [address] [facility] LAB EKG 12-lead, tracing only (12/14/2011 11:57 AM APPIAN DEVELOPER) Component Value Ref Range Test Analysis Performed Pathologis t Method Time At Signature Ventricular Rate 52 BPM RADIOLOGY RESULTS Atrial Rate 52 BPM RADIOLOGY RESULTS NV Interval 190 ms RADIOLOGY RESULTS QRS Duration 108 ms RADIOLOGY RESULTS QT 456 ms RADIOLOGY RESULTS QTc 424 ms RADIOLOGY RESULTS P Sixes 38 degrees RADIOLOGY RESULTS R AXIS -43 degrees RADIOLOGY RESULTS T Sixes 34 degrees RADIOLOGY RESULTS Interpretation Sinus bradycardia RADIOLO GY ECG RESULTS Interpretation Left axis RADIOLOGY ECG deviation RESULTS Interpretation Moderate voltage RADIOLOG Y ECG criteria for LVH, RESULTS may be normal variant Interpretation Abnormal ECG RADIOLOGY ECG RESULTS Interpretation Unconfirmed report - interpr etation of this ECG is computer generated - see RADIOLOGY ECG medical record for final interpretation RESULTS Specimen (Source) Anatomical Collection Method Collection Time Re ceived Time Location / / Volume Laterality 12/14/2011 11:57 AM APPIAN DEVELOPER Otf Arevalo MD ECG ORDERABLES Performing Organization Address City/State/ZIP Code Phon e Number RADIOLOGY RESULTS ECG - HIM ECG Scan (12/14/2011) Narrative This result has an attachment that is no t available. Otf Arevalo MD ECG ORDERABLES documented in this encounter Visit Diagnoses Diagnosis Vision disturbance Unspecified visual disturbance History of stroke Transient ischemic attack (TIA), and cer ebral infarction without residual deficits documented in this encounter Administered Medications Inactive Administered Medications - up to 3 most recent administrations Medication Order MAR Action Action Date Dose Rate Site gadobutrol (GADAVIST) 1 mmol/mL Given 12/14/2011 12:15 PM APPIAN DEVELOPER 10 mmol injection 10 mmol 10 mmol (10 mL), Intravenous, ONCE, On Mon12/14/11 at 1215, For 1 dose sodium chloride 0.9 % flush 60 mL Given 12/14/2011 12:15 PM APPIAN DEVELOPER 60 mLs 60 mL, Intravenous, ONCE, On Mon12/14/11 at 1215, For 1 dose documented in this encounter Active and Recently Administered Medications Times are shown in APPIAN DEVELOPER. Scheduled Medication Order 12/12/2011 12/13/2011 12/14/2011 gadobutrol (GADAVIST) 1 mmol/mL injection 10 mmol (COMPLETED) 1215 (Given - Provider: Raquel Land - Comment: 10 ml gadavist) 10 mmol (10 mL), Intravenous, ONCE, On Mon12/14/11 at 1215, For 1 dose sodium chloride 0.9 % flush 60 mL (COMPLETED) 1215 (Given - Provider: Raquel Land) 60 mL, Intravenous, ONCE, On Mon12/14/11 at 1215, For 1 dose documented in this encounter Care Teams Dry Cans Back Tender Relationship Specialty Start Date End Date Abbe Charles MD PCP - General 04/01/08 04/13/[address] [address] documented as of this encounter
--- OUTSIDE RECORDS SUMMARY | 2022-07-25 16:09 | XMS_ITS | Encounter Summary ---
:1950 Author Organization [place] Address [facility] [place] [address] Care Team Providers Name Role Phone Unavailable Primary Care Provider Unavailable Encounter Details Date Type Department Care Team Description 11/19/[address] 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 HOSPITAL COURSE: This is a 54-year-old gentleman who presented early in August with diverticulitis and was found to have contained perforation and abscess. Patient continued to have symptoms on antibiotic therapy and therefore, surgery was recommended. The patient was taken to the operating room on 09/09/2004 and underwent a sigmoid colectomy with low anterior anastomosis. He found at that time to have large inflammatory mass adjacent to an involving sigmoid colon. Postoperatively, he was transferred to the floor. He did develop a fever postoperatively and was continued on antibiotics. The fever did resolve and the patient made gradual progress. The nasogastric tube was removed on postoperative day #4 and the patient was started on a diet. He was then ready for discharge on postoperative day #6. He will follow-up with me in the office. [id number] NICK CEDILLO MD [place]: Document: [id number] [place], [place] Name: MR#: MARLENE MCCALL -[id number] Please refer to the Nursing Discharge Information Sheet for more detailed information regarding diet, physical actvity limitations, medications and other pertinent instructions given to this patient upon discharge. DISCHARGE SUMMARY Page 2 of 1 LCN: MS2 DSC: 09/15/2004 [place], [place] Name: MR#: MARLENE MCCALL -[id number] : Admit Date: Discharge Date: Account #: [id number] 09/09/2004 09/15/2004 [id number] Doctor: NICK CEDILLO MD Please refer to the Nursing Discharge Information Sheet for more detailed information regarding diet, physical activity limitations, medications and other pertinent instructions given to this patient upon discharge. DISCHARGE SUMMARY Page 1 of 1 ON FURNACE OPERATOR HELPER documented in this encounter Plan of Treatment Not on filedocumented as of this encounter Visit Diagnoses Not on filedocumented in this encounter
--- OUTSIDE RECORDS SUMMARY | 2022-07-25 16:09 | XMS_ITS | Encounter Summary ---
:1950 Author Organization [place] Address [facility] [place] [address] Care Team Providers Name Role Phone Abbe Charles MD Primary Care Provider Reason for Visit Reason Comments Fall pt fell about 3 feet from op workdesk. Denies LOC or neck/back pain. C/O LUQ pain with deep breath. Denie s SOB. Encounter Details Date Type Department Care Team Description 05/26/[address] [facility] Nicolas Belle MD [facility] [address] [place], [place] [id number] Contusion of chest [facility] Otf Ortega MD [facility] [address] [place] [address] [address] [place] [address] Social History Tobacco Use Types Packs/Day Years Used Date Never Assessed Sex Assigned at Date Recorded Not on file documented as of this encounter Last Filed Vital Signs Vital Sign Reading Time Taken Comments Blood Pressure 141/94 05/26/2012 3:39 PM CDT Pulse 61 05/26/2012 3:39 PM CDT Temperature 36.8 ??C (98.2 ??F) 05/26/2012 12:53 PM CDT Respiratory Rate 18 05/26/2012 3:39 PM CDT Oxygen Saturation 98% 05/26/2012 3:39 PM CDT Inhaled Oxygen Concentration - - Weight 113.4 kg (250 lb) 05/26/2012 12:53 PM CDT Height 185.4 cm (6' 1) 05/26/2012 12:53 PM CDT Body Mass Index 32.98 05/26/2012 12:53 PM CDT documented in this encounter Discharge Instructions Discharge InstructionsOtf Ortega MD - 05/26/2012 3:37 PM CDT Images from the original note were not included. Home Back SP RU CH CHEST CONTUSION A?contusion?? is a bruise to the skin, muscle or ribs. It may cause pain, tenderness, swelling and a purplish discoloration. Contusions take a few days to a few weeks to heal. HOME CARE: ?? Rest. You should not be doing any heavy lifting or strenuous exertion, or any activity that causes pain. ?? You may use acetaminophen (Tylenol) or ibuprofen (Motrin, Advil) to control pain, unless another pain medicine was prescribed. [ NOTE: If you have chronic liver or kidney disease or ever had a stomach ulcer or GI bleeding, talk with your doctor before using these medicines.] FOLLOW UP with your doctor during the next week or as directed. [NOTE: If an X-ray or EKG (cardiogram) was made, another specialist will review it. You will be notified of any new findings that may affect your care.] GET PROMPT MEDICAL ATTENTION if any of the following occur: ?? Shortness of breath ?? Increasing chest pain with breathing ?? Dizziness, weakness or fainting ?? New or worsening of abdominal pain ?? Fever of 100.4??F (38??C) or higher, or as directed by your healthcare provider ?? [address] [facility], [address] [place] [address], [place] [address]. All rights reserved. This information is not [...] daily TABS HYDROcodone-acetaminophen Take 1-2 tablets by 15 tablet 0 0 05/26/2012 10/05/2012 5-325 MG per tablet mouth every 4 hours as needed for pain. ibuprofen (ADVIL,MOTRIN) Take 1 tablet by 30 [...] documented as of this encounter ED Notes Otf Ortega MD - 05/26/2012 3:[address] chest/abdomen/pelvis demonstrates no acute traumatic findings. Pain is adequately controlled. Patient informed of results, stable for discharge with symptomatic treatment, information on chest wall contusion, and recommendations for periodic deep breathing to prevent atelectasis. Follow-up with primary care clinic as needed. Otf Ortega MD 05/26/12 1388 Carlos Daniels RN - 05/26/2012 3:00 PM CDT Pt back from CT scan; claims that Dilaudid has helped him but didn't stay long. as long as i don't move, i don't have pain. It's not that bad Carlos Daniels RN - 05/26/2012 2:40 PM CDT Pt left for CT via cart; MD aware of pt's crea/gfr levels. Lizet Belle MD - 05/26/2012 1:02 PM CDT History Chief Complaint: Fall HPI Damon Mccall is a 62 year old male on blood thinners who presents after a fall. The patient reports that he was standing 3 feet above the ground, tried to step onto his workbench when it gave way and he fell. He reports landing on the edge of the workbench. He denies head injury, headache, neck pain, or loss of consciousness. He presents with LUQ pain. The patient denies any shortness of breath, or any other physical complaints at this time. Allergies: No Known Drug Allergies. Medications: Clonazepam. Lisinopril. Atenolol. Zocor. Folgard. Plavix. Multivitamin. Ibuprofen. Robaxin. Percocet. Past Medical History: Cerebral artery occlusion with cerebral infarction. Past Surgical History: GI surgery. Family History: The patient denies any relevant family history. Social History: The patient does not comment on alcohol or tobacco use. He is here with his . Review of Systems HENT: Negative for neck pain. Respiratory: Negative for shortness of breath. Gastrointestinal: Positive for abdominal pain (LUQ). Neurological: Negative for headaches. Negative for loss of consciousness. All other systems reviewed and are negative. Physical Exam First Vitals: BP: 128/79 mmHg Pulse: 69 Temp: 98.2 ??F (36.8 ??C) Resp: 20 Height: 185.4 cm (6' 1) Weight: 113.399 kg (250 lb) SpO2: 97 % Physical Exam Constitutional: He appears distressed. Pleasant and cooperative HENT: Head: Normocephalic and atraumatic. Head is without raccoon's eyes and without Vaughn's sign. Right Ear: Tympanic membrane normal. Left Ear: Tympanic membrane normal. Mouth/Throat: Oropharynx is clear and moist. No oropharyngeal exudate, posterior oropharyngeal edemaor posterior oropharyngeal erythema. Eyes: Conjunctivae are normal. Neck: Neck supple. Cardiovascular: Normal rate, regular rhythm and normal heart sounds. Pulmonary/Chest: Effort normal and breath sounds normal. Chest wall stable. No crepitus. Abdominal: Soft. Bowel sounds are normal. He exhibits no distension. There is no splenomegaly or hepatomegaly. There is tenderness in the left upper quadrant. There is no rebound and no guarding. Musculoskeletal: Normal range of motion. Neurological: He is alert. Skin: Skin is warm and dry. Psychiatric: He has a normal mood and affect. Emergency Department Course Imaging: CT- chest/abd/pelvis with IV contrast: pending Laboratory: CBC: WBC 6.2 (wnl) HGB 14.1 (wnl) PLT 175 (wnl) Lymphocytes 17.0 (low) Granulocytes 0.5 (high) o/w WNL BMP: Cr 1.44 (high) Glucose 134 (high) GFR 49 (low) Protein 6.6 (low) o/w WNL UA: clear, yellow urine o/w WNL Interventions: Normal Saline IV bolus, total of 1.0 L IV Dilaudid, 0.4 mg, IV injection ED Course: I reviewed the patient's medical record. A peripheral IV was established. 1:02PM The patient was seen and examined by myself. I discussed the course of care with the patient including laboratory and diagnostic studies. He understands and is agreeable to the plan. 3:15 PM I have signed the patient over to Dr. Otf Ortega who will further evaluate and treat thepatient. Impression & Plan Medical Decision Making: This is a 62 year old male who fell and sustained a direct injury to his left lower ribs. Given the location, I was concerned with the possibility of rib fracture, hemothorax, pneumothorax, injury to the spleen, or injury to the retroperitoneal organs. The patient's creatine is slightly high with a GFR of 49. However, as recently as November his creatine was lower. I discussed with him that I felt wewould get a non-definitive CT without contrast and suggested IV fluid and complete the CT with contrast. The results are currently pending. The patient's pain is well controlled with medication and I am confident that if his CT is unrevealing of any serious injuries he will be able to be discharged home. At this point, I will sign the case out to Dr. Otf Ortega. I have introduced him to the patient and he will review CT results with the patient when they are available and make discharge plans. I, Lorenza Rasheed, am serving as a scribe on 05/26/2012 at 1:02 PM to document services personally performed by Dr. Padilla, based on my observations and the provider's statements to me. Lizet Belle MD 05/26/12 1521 Laura Ramírez - 05/26/2012 12:52 PM CDT Alert and oriented x 3. ABCD intact. documented in this encounter Miscellaneous Notes Initial Assessments - Ra Provider - 05/29/2012 5:39 PM CDT documented in this encounter Plan of Treatment Not on filedocumented as of this encounter Procedures Procedure Name Priority Date/Time Associated Comments Diagnosis CT CHEST ABDOMEN STAT 05/26/2012 2:47 PM Resul ts for this PELVIS W/ CONTRAST CDT procedure are in the results section. ROUTINE UA WITH Routine 05/26/2012 2:30 PM Result s for this MICROSCOPIC CDT procedure are i n the results section. ISTAT CREATININE POCT Routine 05/26/2012 1:46 PM Results for this CDT procedure are i n the results section. CBC WITH PLATELETS & STAT 05/26/2012 1:40 PM R esults for this DIFFERENTIAL CDT procedure are i n the results section. COMPREHENSIVE STAT 05/26/2012 1:40 PM Results for this METABOLIC PANEL CDT procedure ar e in the results section. documented in this encounter Results Chest/abd/pelvis CT- IV contrast only TRAUMA (05/26/2012 2:47 PM CDT) Anatomical Region Laterality Modality Abdomen, Chest, Pelvis, Hip Computed Jamarcus ography Specimen (Source) Anatomical Collection Method Collection Time Re ceived Time Location / / Volume Laterality 05/26/2012 2:47 PM CDT Impressions 05/26/2012 3:[address] CHEST/ABDOMEN/PELVIS W CONTRAST* May 26, 2012 2:47:00 PM HISTORY: Left upper quadrant trauma. His tory of colon resection for diverticulitis. TECHNIQUE: 100 mL ??Isovue-370 IV. COMPARISON: CT scan from 08/28/2004. FINDINGS: Chest CT: Small cyst inferior left thyro id measuring proximal and centimeters in size. No evidence of aortic aneurysm or dissec tion. No evidence of mediastinal or hilar adenopathy. Lungs a re clear. No pleural fluid or evidence of pneumothorax. No definite ri b fracture. Abdomen and pelvis CT: Liver is normal. There is increased density and some peripheral calcification in the reg ion of the neck of the gallbladder which is suspect is related to a gallstone. With a similar finding was seen in 2003 however it is p ossible this could be gallbladder wall calcification. Right up per quadrant ultrasound maybe helpful for further clarification. Splee n and pancreas are normal. No adrenal lesions. There is a prominent le ft extrarenal pelvis that was seen in the prior study may be the resul t of some degree of UPJ obstruction. This is also stable. No ret roperitoneal adenopathy. Bowel and mesentery are normal. There is a sma ll umbilical hernia containing only fat that is larger than seen on the prior study. Left greater than right SI joint degenerative changes . IMPRESSION: 1. No evidence of refracture, pneumothor ax, or pleural fluid. 2. Mild peripheral increased density in the gallbladder near the gallbladder neck that I suspect is due t o a gallstone in this region. This was however seen in 2003 and is pos sible this could be gallbladder wall calcification. Followup right upper quadrant ultrasound would be helpful for further evaluation. 3. 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 No hydronephrosis. This is a stable finding. 4. Small umbilical hernia containing onl y fat that is new or larger since the prior study. Lizet Belle MD IMG CT ORDERABLES (ABNORMAL) Routine UA with microscopic (05/26/2012 2:30 PM CDT) Patholo gist Method Time Signature Color Urine Yellow [facility] Appearance Urine Clear [facility] Glucose Urine Negative NEG mg/dL [facility] Bilirubin Urine Negative NEG [facility] Ketones Urine Negative NEG mg/dL [facility] Specific [place] 1.022 1.003 - [place] Urine 1.035 [facility] Blood Urine Negative NEG [facility] pH Urine 5.5 5.0 - 7.0 [place] pH [facility] Protein Albumin Negative NEG mg/dL [facility] Urobilinogen Normal 0.0 - 2.0 [place] mg/dL mg/dL [facility] Nitrite Urine Negative NEG [facility] Leukocyte Negative NEG [place] Esterase Urine [facility] Source Midstream [facility] WBC Urine 1 0 - 2 [facility] RBC Urine <1 0 - 2 [facility] Mucous Urine Present (A) NEG /LPF [facility] Specimen Anatomical Collection Method Collection Time Receive d Time (Source) Location / / Volume Laterality Urine specimen URINE SPECIMEN 05/26/2012 2:30 PM 05/26 2:37 (specimen) OBTAINED BY CLEAN CDT PM CDT CATCH PROCEDURE / Unknown Lizet Belle MD LAB - URINE ORDERABLES Performing Organization Address City/State/ZIP Code Phon e Number [place] [address] [place], [place] [address] [facility] (ABNORMAL) Creatinine POCT (05/26/2012 1:46 PM CDT) athologist Signature Creatinine 1.5 (H) 0.66 - POINT OF CARE 1.25 mg/dL TEST, HANDHELD METER GFR Estimate 47 (L) >60 POINT OF CARE mL/min/1.7 TEST, m2 HANDHELD METER GFR Estimate If 57 (L) >60 POINT OF CARE Black mL/min/1.7 TEST, m2 HANDHELD METER Specimen Anatomical Collection Method Collection Time Receive d Time (Source) Location / / Volume Laterality 05/26/2012 1:46 PM 2 2:00 CDT PM CDT Lizet Belle MD [facility] POCT Performing Organization Address City/State/ZIP Code Phon e Number [facility] POINT OF CARE TEST, HANDHELD METER POINT OF CARE TEST, HANDHELD METER (ABNORMAL) Comprehensive metabolic panel (05/26/2012 1:40 PM CDT) [facility] Method Time Signature Sodium 141 133 - 144 [place] mmol/L [facility] Potassium 4.1 3.4 - 5.3 [facility] mmol/L [facility] Chloride 105 94 - 109 [place] mmol/L [facility] Carbon Dioxide 25 20 - 32 [facility] mmol/L [facility] Anion Gap 11 6 - 17 [place] mmol/L [facility] Glucose 134 (H) 60 - 99 [place] mg/dL [facility] Urea Nitrogen 24 7 - 30 [place] mg/dL [facility] Creatinine 1.44 (H) 0.66 - [facility] 1.25 mg/dL [facility] GFR Estimate 49 (L) >60 [place] mL/min/1.[address] LAB GFR Estimate If 60 (L) >60 [place] Black mL/min/1.[address] LAB Calcium 8.7 8.5 - 10.4 [place] mg/dL [facility] Bilirubin Total 0.7 0.2 - 1.3 [place] mg/dL [facility] Albumin 3.8 3.3 - 4.9 [place] g/dL [facility] Protein Total 6.6 (L) 6.8 - 8.8 [place] g/dL [facility] Alkaline 85 40 - 150 [place] Phosphatase U/L [facility] ALT 11 0 - 70 U/L [facility] AST 33 0 - 45 U/L [facility] Specimen Anatomical Collection Method Collection Time Receive d Time (Source) Location / / Volume Laterality Blood specimen 05/26/2012 1:40 PM 012 1:46 (specimen) CDT PM CDT Lizet Belle MD LAB - BLOOD ORDERABLES Performing Organization Address City/State/ZIP Code Phon e Number M [facility] [address] [place], [place] [address] [facility] (ABNORMAL) CBC with platelets differential (05/26/2012 1:40 PM CDT) [facility] gist Method Time Signature WBC 6.2 4.0 - [place] 11.0 [facility] 10e9/L [facility] RBC Count 4.49 4.4 - 5.9 [place] 10e12/L [facility] Hemoglobin 14.1 13.3 - [place] 17.7 g/dL [facility] Hematocrit 40.6 40.0 - [place] 53.0 % [facility] MCV 90 78 - 100 [place] fl [facility] MCH 31.4 26.5 - [place] 33.0 pg [facility] MCHC 34.7 31.5 - [place] 36.5 g/dL [facility] RDW 12.5 10.0 - [place] 15.0 % [facility] Platelet Count 175 150 - 450 [place] 10e9/L [facility] Diff Method Automated [facility] % Neutrophils 73.1 40 - 75 % [facility] % Lymphocytes 17.0 (L) 20 - 48 % [facility] % Monocytes 6.5 0 - 12 % [facility] % Eosinophils 1.9 0 - 6 % [facility] % Basophils 1.0 0 - 2 % [facility] % Immature 0.5 (H) 0 - 0.4 % [place] Granulocytes [facility] Absolute 4.5 1.6 - 8.3 [place] Neutrophil 10e9/L [facility] Absolute 1.1 0.8 - 5.3 [place] Lymphocytes 10e9/L [facility] Absolute 0.4 0.0 - 1.3 [place] Monocytes 10e9/L [facility] Absolute 0.1 0.0 - 0.7 [place] Eosinophils 10e9/L [facility] Absolute 0.1 0.0 - 0.[address] LAB Abs Immature 0.0 0 - 0.[address] LAB Specimen Anatomical Collection Method Collection Time Receive d Time (Source) Location / / Volume Laterality Blood specimen 05/26/2012 1:40 PM 012 1:46 (specimen) CDT PM CDT Lizet Belle MD LAB - BLOOD ORDERABLES Performing Organization Address City/State/ZIP Code Phon e Number M [facility] [address] [place], [place] [address] [facility] documented in this encounter Visit Diagnoses Diagnosis Contusion of chest wall documented in this encounter Administered Medications Inactive Administered Medications - up to 3 most recent administrations Medication Order MAR Action Action Date Dose Rate Site 0.9 % sodium chloride IV New Bag 05/26/2012 1:47 PM CDT 1,000 mLs 125 mL/hr solution at 125 mL/hr, Intravenous, CONTINUOUS, Starting on 05/26/12 at 1315, Until 05/26/12 at 1749 HYDROmorphone (DILAUDID) injection 0.4 m g Given 05/26/2012 1:47 PM CDT 0.4 mg 0.4 mg, Intravenous, EVERY 15 MIN PRN, moderate to severe pain, Starting on 05/26/12 at 1307, For 3 doses iopamidol (ISOVUE-370) 76% solution 100 mL Given 05/26/2012 2:43 PM CDT 100 mLs 100 mL, Intravenous, ONCE, On 05/26/12 at 1445, For 1 dose documented in this encounter Active and Recently Administered Medications Times are shown in CDT. Scheduled Medication Order 05/24/2012 05/25/2012 05/26/2012 iopamidol (ISOVUE-370) 76% solution 100 mL (COMPLETED) 1443 (Given - Provider: Vania Morales) 100 mL, Intravenous, ONCE, 05/26/12 at 1445, For 1 dose Continuous Medication Order 05/24/2012 05/25/2012 05/26/2012 0.9 % sodium chloride IV solution (CANCELED) 1347 (New Bag - Provider: Carlos Daniels RN)1549 (Stopped - Provider: Carlos Daniels RN) 1,000 mL, Intravenous, at 125 mL/hr, CONTINUOUS, Starting 05/26/12 at 1315 PRN Medication Order 05/24/2012 05/25/2012 05/26/2012 HYDROmorphone (DILAUDID) injection 0.4 mg (CANCELED) 1347 (Given - Provider: Carlos Daniels RN) 0.4 mg, Intravenous, EVERY 15 MIN PRN, m oderate to severe pain, Starting 05/26/12 at 1307, For 3 doses documented in this encounter Care Teams Electrical Tryout Person Relationship Specialty Start Date End Date Abbe Charles MD PCP - General 04/01/08 04/13/[address] [address] documented as of this encounter
--- OUTSIDE RECORDS SUMMARY | 2022-07-25 16:09 | XMS_ITS | Encounter Summary ---
:1950 Author Organization [facility] Address [address] [place] [address] Care Team Providers Name Role Phone Eneida Charles MD Primary Care Provider Encounter Details Date Type Department Care Team Description 04/06/2006 Historic Results INTERFACED REPORT Emerald [place] [phone] (Wo rk) Social History Tobacco Use Types Packs/Day Years Used Date Never Assessed Sex Assigned at Date Recorded Not on file documented as of this encounter Plan of Treatment Not on filedocumented as of this encounter Procedures Procedure Name Priority Date/Time Associated Diagnosis Comme [facility] HISTOPATHOLOGY Routine 04/06/2006 12:00 AM Result s for this CDT procedure are i n the results section . documented in this encounter Results Histopathology (04/06/2006 12:00 AM CDT) Component Value Ref Test Analysis Performed At [facility] Range Method Time Signature Copath Report CASE: [id number] ^ COPATH Patient Name: MARLENE MCCALL MR#: [id number] Specimen #: [id number] Collected: 04/06/2006 Received: 04/06/2006 Reported: 04/07/2006 16:40 Ordering Phy(s): EMERALD BUTLER Additional Phy(s): ENEIDA CHARLES SPECIMEN(S): Esophageal ring biopsy FINAL DIAGNOSIS: Biopsies of distal esophagus at 39-40 cm - Benign esophageal mucosa and gastric mucosa with chronic inflammation. Electronically signed out by: John K Wogensen, M.D. CLINICAL HISTORY: Dysphagia. GROSS: The specimen, labeled esophageal ring at 39-40 cm biopsies x2, consists of two small biopsy fragments, each 2 mm in greates t dimension. The entire specimen is embedded in one cassette. ??ANA PAULA/kevin MICROSCOPIC: Sections of esophageal ring biopsies at 39-40 cm show benign stratified squamous esophageal mucosa with a squamocolumnar junction an d a few small benign gastric glands at this point. ??There is fairly heavy chronic inflammatory cell infiltration of the stroma surroun ding the glandular structures. ??There is some reactive changes in a few glands, but no distinctive evidence of goblet cell/intestinal metapl jayla seen. ANA PAULA/kevin DT/04-07-06 TESTING LAB LOCATION: [address] ??[id number] COLLECTION SITE: Client: [facility] Location: ENDO (R) Specimen (Source) Anatomical Collection Method Collection Time Re ceived Time Location / / Volume Laterality 04/06/2006 04/07/2006 4:40 PM CDT Emerald Butler MD LAB - COP[facility] SPECIAL DIAG OR DERABLES Performing Organization Address City/State/ZIP Code Phon e Number [place] documented in this encounter Visit Diagnoses Not on filedocumented in this encounter Care Teams Silo Tender Relationship Specialty Start Date End Date Eneida Charles MD PCP - General 04/01/08 04/13/[address] [address] documented as of this encounter
--- OUTSIDE RECORDS SUMMARY | 2022-07-25 16:09 | XMS_ITS | Encounter Summary ---
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 According to his he has been having some episodes of hypertension and she has been treating him with Atenolol at home. He had a headache but it was relieved with Tylenol this morning. However, he told them that he had some persistent weakness over at the rehab and they suggested he come over here. They talked to Dr. Charles and he sent him over here for a CT scan. No other recent falls. He has had no fever, no chills. The headache is pretty much generalized. No neck stiffness with it. ALLERGIES: No known allergies. MEDICATIONS: His medications include Plavix, Folgard, Atenolol, Zocor, lisinopril and aspirin. PAST MEDICAL HISTORY: Cerebrovascular accident times two in September of 2003. 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 SOCIAL HISTORY: Not applicable at this time. FAMILY HISTORY: Not applicable. REVIEW OF SYSTEMS: In general he has been in and out of the hospital several times with recurrent headaches since the cerebrovascular accident. Skin: Negative. Head: See history of present illness. Eyes: Negative. Ears, nose and throat: Negative. Cardiorespiratory: See past medical history of septal defect. Gastrointestinal: Negative. Genitourinary: Negative. Endocrine: Negative. Musculoskeletal: Negative. Neuro/psych: See history of present illness and past medical history. All other systems negative. PHYSICAL EXAMINATION: Blood pressure 127/73, one other time it was 141/73. Pulse 65. Respiratory rate is 18. Temperature is 97.1. Pulse oximetry 97 percent on room air. In general this is an alert, cooperative, very pleasant man complaining of a headache earlier which is now basically gone, very concerned about extension of his cerebrovascular accident or a new cerebrovascular accident. SKIN is warm and dry. He has a tylor complexion. His HEAD is otherwise normocephalic. EYES: PUPILS equal, regular and react normally to light. No complaints of diplopia and there is no nystagmus. MOUTH and THROAT: Normal. TONGUE: Midline. NECK is supple. No JVD. No carotid bruits or thrills. LUNGS: Clear to auscultation. No rales, no rhonchi, no friction rubs, no wheezing. HEART: Regular sinus rhythm. ABDOMEN is soft, nontender to palpation. No guarding, no rebound, no palpable masses. 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 A little residual weakness of the left ARM and left lower LEGfrom the cerebrovascular accident. He has had no aphasia. He has got good function of the facial motor musculature. He has deep tendon reflexes, basically KNEE and ANKLE symmetric, brachioradialis, biceps and triceps fairly quick bilaterally and fairly equal. He might be slightly quicker on the left than the right but it is very difficult to tell. There is some weakness, a little bit of muscle weakness in the left LEG and left ARM. CT scan of the head is no new changes. This was very reassuring for him. DISCHARGE PLAN: Home and rest today. Tylenol p.r.n. headache q.4 hours. See primary medical doctor later this week if headache returns and is not relieved by Tylenol. DIAGNOSIS: Headache (tension headache). Condition is stable. I talked to Dr. Charles. See Dr. Charles as mentioned if headache returns or if not relieved by Tylenol. 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
--- OUTSIDE RECORDS SUMMARY | 2022-07-25 16:09 | XMS_ITS | Encounter Summary ---
:1950 Author Organization [facility] Address [address] [place] [address]. 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 HISTORY OF PRESENT ILLNESS: The patient is a 54-year-old male who presents to the Emergency Department complaining of abdominal pain. He states he was contacted at home and instructed to come to the Emergency Department because he was noted to have evidence of a diverticular perforation. He states that he has been having low abdominal pain for approximately the last two weeks. He was started on Levaquin by his primary doctor yesterday and had a CT scan scheduled for today. He received the results of the CT scan and was told to come to the Emergency Department. He states he has had decreased appetite for the last several weeks. He denies any fever or chills, bloody or black stools, chest pain, shortness of breath, bladder complaints. He denies any vomiting or any other complaints. He states that the pain is not as severe this time as when he was diagnosed in the past with diverticulitis. No other complaints. PAST MEDICAL HISTORY: Hypertension, CVA, diverticulitis. MEDICATIONS: Atenolol, Zocor, Levaquin, Plavix, clonazepam and lisinopril. ALLERGIES: NKDA. SOCIAL HISTORY: Denies alcohol, tobacco or drug use. FAMILY HISTORY: Noncontributory. REVIEW OF SYSTEMS: As noted in the history of present illness. All other systems are negative. PHYSICAL EXAMINATION: The patient is alert, appropriate. Temperature is 97.9, pulse 80, respiratory rate 18, blood pressure 138/62, oxygen saturation 98% on room air. Head examination is normal. Eyes are normal. Ears are normal. Nose is normal. Throat is normal. Neck has no lymphadenopathy. No bruits or masses. Lungs are clear to auscultation bilaterally. Cardiac examination is regular rate and rhythm. No murmurs, gallops or rubs. Abdominal examination has hyperactive bowel sounds. He does have some mid abdominal tenderness to palpation. No guarding or rebound. No masses. Extremities are normal. Skin is warm and dry, no rash. LABORATORY AND DIAGNOSTICS: CT of the abdomen and pelvis with contrast that had been obtained earlier in the morning was positive for perforated sigmoid diverticulitis with extraliminal air and phlegmon but no josh abscess, no evidence of free air elsewhere in the abdomen. CBC showed a white count of 10.6 with 67% neutrophils, 25% lymphocytes. Hemoglobin was 12.8, hematocrit 39.1. Platelet count was normal. CMP was within normal limits. Urinalysis was negative. EMERGENCY DEPARTMENT COURSE: An IV was started. The patient was given a one liter bolus of normal saline over an hour, and Zosyn 3.375 gm IV. The case was discussed with Dr. Cedillo who had reviewed the CT scan of the abdomen. He recommended admission, IV antibiotics. I discussed the case with Dr. Winters who was the hospitalist. He agreed to admit the patient to a medical bed. The patient was discharged from the Emergency Department in stable condition. DIAGNOSIS: Perforated diverticulitis. [id number] _ MANSI DIAZ MD MT: Document: [id number] [place], [place] Name: MR#: MARLENE MCCALL -39 EMERGENCY ROOM ENCOUNTER Page 2 of 2 LCN: MS3 DSC: [place], [place] Name: MR#: MARLENE MCCALL -39 : Admit Date: Account #: 1950 08/25/2004 [id number] Doctor: MANSI DIAZ MD EMERGENCY ROOM ENCOUNTER Page 1 of 2 R BRAKEMAN documented in this encounter Plan of Treatment Not on filedocumented as of this encounter Visit Diagnoses Not on filedocumented in this encounter
--- OUTSIDE RECORDS SUMMARY | 2022-07-25 16:09 | XMS_ITS | Encounter Summary ---
:1950 Author Organization [facility] Address [address] [place] [address]. [place] [address] Care Team Providers Name Role Phone Unavailable Primary Care Provider Unavailable Encounter Details Date Type Department Care Team Description 08/25/2004 Results Only Abbe Charles MD [address] [phone] (Wo rk) Social History Tobacco Use Types Packs/Day Years Used Date Never Assessed Sex Assigned at Date Recorded Not on file documented as of this encounter Plan of Treatment Not on filedocumented as of this encounter Procedures Procedure Name Priority Date/Time Associated Diagnosis Comme nts CT ABDOMEN W Routine 08/25/2004 9:37 AM Result s for this CONTRAST PORT DRIER procedure are i n the results section. documented in this encounter Results CT SCAN OF ABDOMEN CONTRAST (08/25/2004 9:37 AM PORT DRIER) Specimen (Source) Anatomical Collection Method Collection Time Re ceived Time Location / / Volume Laterality 08/25/2004 9:37 AM PORT DRIER Impressions Pacs, Data Conversion - 08/25/2004 1:[address] ABDOMEN AND PELVIS WITH CONTRAST ?? CLINICAL HISTORY: ??Constipation. ??Abdo emanuel pain. ??History of diverticulitis in 2001. ? TECHNIQUE: ??With intravenous and oral c ontrast through the abdomen and pelvis. ? FINDINGS: ??The upper abdominal organs a re normal. ? The sigmoid colon is quite redundant. ?? The upper loop of the sigmoid colon is in the upper mid-pelvis. ??This loop is thick wall and has inflammatory changes in the surrounding fat. ??On images [id number] there is also extraluminal air and phlegmon fo rmation without josh abscess at this time. ??There is also diverticul osis in additional areas of the sigmoid colon. ? Mild degenerative changes of the spine a nd vascular calcifications. ? IMPRESSION: Perforated sigmoid diverticulitis with e xtraluminal air and phlegmon but no josh abscess at this time. ??No evidence for free air elsewhere in the abdomen. ? Results discussed with Dr. Abbe felix Abbe Charles MD SPECIAL IMAGING STUDIES documented in this encounter Visit Diagnoses Not on filedocumented in this encounter
--- OUTSIDE RECORDS SUMMARY | 2022-07-25 16:09 | XMS_ITS | Encounter Summary ---
:1950 Author Organization [facility] Address [address] [place] [address] Care Team Providers Name Role Phone Unavailable Primary Care Provider Unavailable Encounter Details Date Type Department Care Team Description 10/07/2005 Results Only [facility] Gavin Cedillo MD Hospital Results [address] [place], [place] [address] (Wo rk) Social History Tobacco Use Types Packs/Day Years Used Date Never Assessed Sex Assigned at Date Recorded Not on file documented as of this encounter Plan of Treatment Not on filedocumented as of this encounter Procedures Procedure Name Priority Date/Time Associated Comments Diagnosis HC ULTRASOUND Routine 10/07/2005 10:34 AM Results for this BREAST(S) MANAGER LEAN procedure are i n (UNILATERAL OR the results BILATERAL), REAL section. TIME W IMAGE C MAMMOGRAM, BOTH Routine 10/07/2005 10:11 AM Res ults for this BREASTS (DIAG) MANAGER LEAN procedure are in the results section. documented in this encounter Results SONO BREAST (10/07/2005 10:34 AM MANAGER LEAN) Specimen (Source) Anatomical Collection Method Collection Time Re ceived Time Location / / Volume Laterality 10/07/2005 10:34 AM MANAGER LEAN Impressions RADIOLOGY RESULTS - 10/12/2005 12:56 PM MANAGER LEAN DIAGNOSTIC MAMMOGRAM, BILATERAL AND DANIS ST ULTRASOUND, LEFT ??- ?? SYMPTOMATIC ? 10/07/2005 BREAST SYMPTOMS: Lump, left. PREVIOUS MAMMOGRAPHY: ??Baseline. BREAST PARENCHYMA: ??Fatty/ mild densit ies. FINDINGS: ??Bilateral screening mammogra m of this 55-YO male demonstrates some asymmetric retroareola r tissue left breast. ??BB vogt the area overlying the patient's p alpable abnormality and corresponds to this area of parenchymal densities. ??No other suspicious masses, microcalcifications o r areas of architectural distortion are noted. ?? Follow-up ultrasound demonstrates no und erlying cyst, mass or area of posterior acoustic shadowing. ??Findings most likely represent gynecomastia changes. ??Findings were di scussed with the patient at the time of this study. ??Further follow -up of this palpable abnormality should be based on clinical findings. ?? IMPRESSION: CATEGORY 2 Benign findings. TECHNOLOGIST INITIALS: ??PAU Gavin Cedillo MD SPECIAL IMAGING STUDIES Performing Organization Address [facility] Phon e Number RADIOLOGY RESULTS MAMMOGRAM, BOTH BREASTS (DIAG) (10/07/2005 10:11 AM MANAGER LEAN) Specimen (Source) Anatomical Collection Method Collection Time Re ceived Time Location / / Volume Laterality 10/07/2005 10:11 AM MANAGER LEAN Impressions RADIOLOGY RESULTS - 10/12/2005 12:56 PM MANAGER LEAN DIAGNOSTIC MAMMOGRAM, BILATERAL AND DANIS ST ULTRASOUND, LEFT ??- ?? SYMPTOMATIC ? 10/07/2005 BREAST SYMPTOMS: Lump, left. PREVIOUS MAMMOGRAPHY: ??Baseline. BREAST PARENCHYMA: ??Fatty/ mild densit ies. FINDINGS: ??Bilateral screening mammogra m of this 55-YO male demonstrates some asymmetric retroareola r tissue left breast. ??BB vogt the area overlying the patient's p alpable abnormality and corresponds to this area of parenchymal densities. ??No other suspicious masses, microcalcifications o r areas of architectural distortion are noted. ?? Follow-up ultrasound demonstrates no und erlying cyst, mass or area of posterior acoustic shadowing. ??Findings most likely represent gynecomastia changes. ??Findings were di scussed with the patient at the time of this study. ??Further follow -up of this palpable abnormality should be based on clinical findings. ?? IMPRESSION: CATEGORY 2 Benign findings. TECHNOLOGIST INITIALS: ??PAU Gavin Cedillo MD SPECIAL IMAGING STUDIES Performing Organization Address [facility] Code Phon e Number RADIOLOGY RESULTS documented in this encounter Visit Diagnoses Not on filedocumented in this encounter
--- OUTSIDE RECORDS SUMMARY | 2022-07-25 16:09 | XMS_ITS | Encounter Summary ---
:1950 Author Organization [facility] Address [address] [place] [address] Care Team Providers Name Role Phone Abbe Charles MD Primary Care Provider Reason for Visit (Routine) - Closed Specialty Diagnoses / Procedures Referred By Contact Refer red To Contact Radiology Diagnoses CT ANGIO HEAD AND NECK Procedure Notes: Head pains,visual disturbance,CT angio of neck Rh Ct S can Procedures RADIOLOGY [address] [place], [place] [address] Phone: Fax: Referral ID Status Reason Start Date Expiration Date Visits Requ ested Visits Authorized [id number] Closed 01/02/2012 01/01/2013 1 1 Encounter Details Date Type Department Care Team Description 01/03/2012 Hospital Encounter [facility] Radha Milligan pains; [facility] MD Nichole Visual disturbance [address] [facility] [place] [place] NEUROLOGY [phone] [address] [phone] [address] Social History Tobacco Use Types Packs/Day Years [...] for pain. documented as of this encounter Miscellaneous Notes Initial Assessments - Ra Provider - 02/14/2012 3:11 PM CDT documented in this encounter Plan of Treatment Not on filedocumented as of this encounter Procedures Procedure Name Priority Date/Time Associated Diagnosis Comme nts CT HEAD W/O Routine 01/03/2012 2:03 PM Results f or this CONTRAST CDT procedure are i n the results section. CTA HEAD NECK W Routine 01/03/2012 2:03 PM Head pains Results for this CONTRAST CDT Visual disturbance procedure are in the results section. documented in this encounter Results CT Head w/o contrast* (01/03/2012 2:03 PM CDT) Anatomical Region Laterality Modality Head, SUBRAD CT NEURO, SUBRAD CT NEURO, UMP CT NEURO Computed Tomography Specimen (Source) Anatomical Collection Method Collection Time Re ceived Time Location / / Volume Laterality 01/03/2012 2:03 PM CDT Impressions 01/05/2012 8:[address] SCAN OF THE HEAD WITHOUT CONTRAST ?? Jan 03, 2012 2:03:00 PM HISTORY: Visual disturbance. TECHNIQUE: ??5 mm thick axial images of the head without IV contrast material. COMPARISON: CT scan 11/11/2003. MRI 2011. FINDINGS: ??Old infarct is again noted i n the inferior left cerebellar hemisphere. There is no evidence of new infarction. There is mild brain atrophy. There are scattered foci of low attenuation in the periventricular and central white matter of the cerebral hemispheres consistent with sequelae of small vessel ischemic disease, corresponding with findings on the previ ous recent MRI. There is no evidence of intracranial hemorrhage, mas s, acute infarct or anomaly. The visualized portions of the sinuses a nd mastoids appear normal. There is no evidence of trauma. IMPRESSION: ?? 1. No acute abnormality. 2. Old infarct left inferior cerebellar hemisphere. 3. Mild brain atrophy. 4. Mild white matter changes consistent with sequelae of small vessel ischemic disease. ?? 5. No change. Radha Milligan MD [facility] CT ORDERABLES CT Angiogram head neck w & w/o contrast (01/03/2012 2:03 PM CDT) Anatomical Region Laterality Modality Head, SUBRAD CT NEURO, SUBRAD CT NEURO, P CT NEURO Computed Tomography Specimen (Source) Anatomical Collection Method Collection Time Re ceived Time Location / / Volume Laterality 01/03/2012 2:03 PM CDT Impressions 01/05/2012 8:[address] ANGIOGRAM OF THE HEAD AND NECK ??WITH OUT AND WITH CONTRAST ??Jan 03, 2012 2:03:00 PM HISTORY: Episode of headache and visual disturbance. Two previous strokes. TECHNIQUE: ??Precontrast localizing scan s were followed by CT angiography with an injection of 125 ??m L nonionic contrast material IV with scans through the head and neck. ?? Images were transferred to a separate 3-D workstation where multiplan ar reformations and 3-D images were created. ??Estimates of carotid mac noses are made relative to the distal internal carotid artery diameters except as noted. ?? COMPARISON: MR angiogram 12/14/2011. CT HEAD FINDINGS: ??No contrast enhancin g lesions. ??Cerebral blood flow is grossly normal. ??Old infarct left in ferior cerebellar hemisphere. Old infarct left frontal lobe deep white matter. CT ANGIOGRAM HEAD FINDINGS: ??Arteries a re widely patent with no aneurysm, significant stenosis, occlusio n or intraarterial thrombus. Venous circulation is unremarkable. ??Mi ld calcifications of the carotid siphons with less than 50% diame ter stenosis on either side. CT ANGIOGRAM NECK FINDINGS: Right carotid artery: ??No significant s tenosis. ?? Left carotid artery: ??No significant st enosis. ?? Vertebral arteries: ??Calcification left vertebral artery above the foramen magnum causing about 50% diamete r stenosis. No significant stenosis. ??Origins of both vertebral ar teries obscured by beam hardening artifact from scanning through the shoulders. Other findings: None. IMPRESSION: 1. Mild atherosclerotic calcifications i n the carotid siphons and carotid bifurcations as well as in the l eft vertebral artery above the foramen magnum. 2. 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 3. No evidence of aneurysm or vascular o cclusion. Radha Milligan MD IMG CT ORDERABLES documented in this encounter Visit Diagnoses Diagnosis Head pains Headache Visual disturbance Unspecified visual disturbance documented in this encounter Administered Medications Inactive Administered Medications - up to 3 most recent administrations Medication Order MAR Action Action Date Dose Rate Site ioversol (OPTIRAY 350) iv Given 01/03/2012 1:45 PM CDT 125 mLs solution 74% 125 mL 125 mL, Intravenous, ONCE, On 01/03/12 at 1345, For 1 dose sodium chloride 0.9 % flush 125 mL Given 01/03/2012 1:45 PM CDT 30 mLs 125 mL, Intravenous, ONCE, On 01/03/12 at 1345, For 1 dose documented in this encounter Care Teams Cork Wirer Relationship Specialty Start Date End Date Abbe Charles MD PCP - General 04/01/08 04/13/14 [facility] [address] [place] [phone] documented as of this encounter
--- OUTSIDE RECORDS SUMMARY | 2022-07-25 16:09 | XMS_ITS | Encounter Summary ---
:1950 Author Organization [place] Address [facility] [place] [address] Care Team Providers Name Role Phone Unavailable Primary Care Provider Unavailable Encounter Details Date Type Department Care Team Description 09/09/2004 Operative Report [facility] Nick Cedillo, (Trade Economist) Tiogahetal Gomez MD [address] [place] [address] [address] [place], [place] [address] [place], [place] [phone] (Wo rk) Social History Tobacco Use Types Packs/Day Years Used Date Never Assessed Sex Assigned at Date Recorded Not on file documented as of this encounter Miscellaneous Notes Op Note - Nick Cedillo - 09/09/2004 12:00 AM CORPORATE EVENT PLANNER : 46 1st ASS'T: Ranjith Null M.D. 2nd ASS'T: Sarah Solomon RN PRE-OPERATIVE DIAGNOSIS: Diverticulitis with abscess. POST-OPERATIVE DIAGNOSIS: Diverticulitis with abscess. OPERATION: Sigmoid colectomy with low anterior anastomosis. ANESTHESIA: General. ESTIMATED BLOOD LOSS: 500 cc. INDICATIONS FOR OPERATION: This is a 54-year-old gentleman who initially presented in early August with diverticulitis and CT scan revealed contained perforation and abscess. The patient continued to have symptoms on antibiotic therapy and repeat CT scan did not show any significant resolution. It was therefore recommended to the patient that since he was not improving that he undergo sigmoid resection and the possibility of colostomy was brought up to the patient. The procedure along with risks and complications were discussed and the patient agreed to proceed. DETAILS OF THE OPERATION: After informed consent the patient was taken to the Operating Room where he underwent satisfactory induction of general anesthesia. The patient was then placed in the dorsolithotomy position and was sterilely prepped and draped. Incision was made in the midline and dissection was carried down into the abdomen without difficulty. There were noted to be a number of string- like adhesions to the structures in the low abdomen. A large inflammatory mass could be palpated and this was seen to involve the sigmoid colon as well as a loop of the ileum. The ileum was carefully dissected away from the inflammatory mass and the small bowel was packed into the upper abdomen. Placement of the nasogastric tube was confirmed within the stomach and the gallbladder was found to be distended with some adhesions to it, but with no evidence of acute inflammation. This was well away from the operative field and was therefore left in place. At this point a prolonged mobilization was undertaken to bring the sigmoid colon up into the incision. There was a large amount of inflammatory change and this is gradually taken down using blunt dissection as well as the Ligasure device and suture ligatures. The proximal bowel was visualized and this appeared healthy without evidence of inflammation with minimal diverticular disease therefore position was selected on the proximal sigmoid for anastomosis and the 75 mm PATRICIA stapler was fired across the bowel. The mesentery was then taken down using the Ligasure device and ties and this was then carried distally. The position was also selected on the rectum and a window was made in the mesorectum and a 60 mm TA type stapler was fired across. There was a fair amount of inflammation in the posterior aspect of the mesorectum and after the stapler had been fired the staple line was intact with a posterior serosa, appeared to be very thinned out. At this point the sigmoid mesentery was taken down the rest of the way using ties in the Ligasure device. There was a huge amount of inflammation deep resulting in actually the fracture of some of the vessels in that area. These were then oversewn with good control. The specimen was removed and good hemostasis was achieved. At this point the rectum was visualized and an additional 2 cm was resected giving back to good circumferential full thickness bowel wall. The mesorectum was taken down using the Ligasure device and the 62 mm TA stapler was again fired. At this point some additional mobilization was undertaken in the left colon and the proximal staple line was cut out. EEA sizers were inserted into the proximal colon and a 28 mm sizer was found to fit easily. The #2-0 Prolene pursestring suture was placed and the 28 mm EEA stapler was brought onto the field. The Anvil was placed into the proximal bowel and the pursestring suture was tied. The pericolic fat was cleared off carefully and at this point Dr. Null went below and advanced first the sizers and then the stapler up from below and from the very mid portion of the TA staple line there was small amount of leakage of liquid. This area was then oversewn and selected as the site to bring the point of the EEA stapler through. This was performed watching carefully from above and no additional leakage was noted from any other portion of the staple line. Once the stapler had been extended the point was removed and the Anvil attached. The stapler was then closed and fired and the stapler was removed without difficulty. The staple line was grossly intact and Dr. Null insufflated air from below and there was no evidence of leakage from the staple line. A couple of areas laterally were reinforced using #3-0 Vicryl sutures. The anastomosis fell down well under fairly prominent peritoneal fold. There was no tension on the anastomosis. At this point the abdomen was irrigated out using normal saline and antibiotic solution. Seprafilm was placed under the incision as well as the omentum which was also pulled down and the incision was then closed using running looped #0 PDS suture. The subcutaneous tissue was irrigated out and the skin was closed using skin thelma. The patient tolerated the procedure well and was transferred to the Recovery Room in satisfactory condition. Sponge and needle counts were correct at the close of the case. FINDINGS: Massive inflammatory change in the sigmoid mesocolon with tethering of small bowel and the sigmoid colon. Distal and proximal bowel, however, appeared healthy and a prior reanastomosis was performed. [id number] _ NICK CEDILLO MD [place]: Document: [id number] [place], [place] Name: MR#: MARLENE MCCALL -[id number] OPERATIVE REPORT Page 3 of 2 LCN: [id number] DSC: [place], [place] Name: MR#: MARLENE MCCALL [id number] : Procedure Date: Account #: 1950 09/09/2004 [id number] Doctor: NICK CEDILLO MD OPERATIVE REPORT Page 1 of 2 ORATE EVENT PLANNER documented in this encounter Plan of Treatment Not on filedocumented as of this encounter Visit Diagnoses Not on filedocumented in this encounter
--- OUTSIDE RECORDS SUMMARY | 2022-07-25 16:09 | XMS_ITS | Encounter Summary ---
:1950 Author Organization [place] Address [facility] [place] [address] Care Team Providers Name Role Phone Abbe Charles MD Primary Care Provider Encounter Details Date Type Department Care Team Description 09/11/2012 [facility] [address] [facility] [place], [place] NEUROLOGY [address] [address] [facility] [phone] [address] (Wo rk) Social History [...] mg by 0 015 mouth every morning HYDROcodone-acetaminophen Take 1-2 tablets by 15 tablet [...] by 0 (MULTI-VITAMIN) per mouth daily. tablet Cullman-3 Fatty Acids Take by mouth. 0 0 03/21/2014 (OMEGA-3 FISH OIL PO) oxycodone-acetaminophen Take 1 tablet by 20 tablet 0 201003/21/2014 (PERCOCET) 5-325 MG per mouth every 6 hours tablet as needed for pain. SIMVASTATIN PO Take by mouth. 0 2013 documented as of this encounter Progress Notes Abstract, Provider - 09/14/2012 6:54 PM CST STANT PROFESSOR OF RELIGION Abstract, Provider - 09/14/2012 6:54 PM CST STANT PROFESSOR OF RELIGION documented in this encounter Plan of Treatment Not on filedocumented as of this encounter Procedures Procedure Name Priority Date/Time Associated Comments Diagnosis PROTEIN S ANTIGEN FREE Routine 09/11/2012 12:10 R esults for this PM ASSISTANT PROFESSOR OF RELIGION procedure are i n the results section. PROTEIN C CHROMOGENIC Routine 09/11/2012 12:10 Re sults for this PM ASSISTANT PROFESSOR OF RELIGION procedure are i n the results section. LUPUS ANTICOAGULANT Routine 09/11/2012 12:10 Resu lts for this PANEL PM ASSISTANT PROFESSOR OF RELIGION procedure are i n the results section. HOMOCYSTEINE Routine 09/11/2012 12:10 Results for this PM ASSISTANT PROFESSOR OF RELIGION procedure are i n the results section. ERYTHROCYTE Routine 09/11/2012 12:10 Results for this SEDIMENTATION RATE PM ASSISTANT PROFESSOR OF RELIGION procedure are in AUTO the results section. CARDIOLIPIN ANTIBODY Routine 09/11/2012 12:10 Res ults for this IGG AND IGM PM ASSISTANT PROFESSOR OF RELIGION procedure are i n the results section. ANTITHROMBIN III Routine 09/11/2012 12:10 Results for this PM ASSISTANT PROFESSOR OF RELIGION procedure are i n the results section. FACTOR 5 LEIDEN Routine 09/11/2012 12:03 Results for this MUTATION ANALYSIS PM ASSISTANT PROFESSOR OF RELIGION procedure are in the results section. documented in this encounter Results Erythrocyte sedimentation rate auto (09/11/2012 12:10 PM ASSISTANT PROFESSOR OF RELIGION) athologist Signature Sed Rate 8 0 - 20 mm/h [facility] Specimen Anatomical Collection Method Collection Time Receive d Time (Source) Location / / Volume Laterality 09/11/2012 12:10 09/11/2012 PM ASSISTANT PROFESSOR OF RELIGION 12:25 PM ASSISTANT PROFESSOR OF RELIGION Radha Milligan MD LAB - BLOOD ORDERABLES Performing Organization Address City/State/ZIP Code Phon e Number [place] [address], [place] [address] [facility] Protein S free (09/11/2012 12:10 PM ASSISTANT PROFESSOR OF RELIGION) athologist [facility] Protein S Free 96 70 - 135 % [facility] Comment: Analyte Specific Reagents (ASRs) are use d in many laboratory tests necessary for standard medical care and generally do not require FDA approval. ??This test was developed and its performance character istics determined by [facility]. ? ?It has not been cleared or approved by the US Food and Drug Administration. Specimen Anatomical Collection Method Collection Time Receive d Time (Source) Location / / Volume Laterality 09/11/2012 12:10 09/11/2012 PM ASSISTANT PROFESSOR OF RELIGION 12:25 PM ASSISTANT PROFESSOR OF RELIGION Radha Milligan MD LAB - BLOOD ORDERABLES Performing Organization Address City/State/ZIP Code Phon e Number [facility] [address] [place] [address] [facility] Protein C chromogenic (09/11/2012 12:10 PM ASSISTANT PROFESSOR OF RELIGION) athologist Signature Prot C 115 70 - 130 % [facility] Chromogenic [facility] Specimen Anatomical Collection Method Collection Time Receive d Time (Source) Location / / Volume Laterality 09/11/2012 12:10 09/11/2012 PM ASSISTANT PROFESSOR OF RELIGION 12:25 PM ASSISTANT PROFESSOR OF RELIGION Radha Milligan MD LAB - BLOOD ORDERABLES Performing Organization Address City/[facility]/ZIP Code Phon e Number [facility] [address] LABS Lupus panel (09/11/2012 12:10 PM ASSISTANT PROFESSOR OF RELIGION) Component Value Ref Test Analysis Performed At Patholo gist Range Method Time Signature Lupus Result Negative NEG [facility] (Note) [place] COMMENTS: [place] [facility] The INR is normal. APTT is normal. ??1:2 Mix is not indicated. DRVVT Screen is normal. Thrombin time is normal. NEGATIVE TEST; A LUPUS ANTICOAGULANT WAS NOT DETECTED IN THI S SPECIMEN WITHIN THE LIMITS OF THE TESTING REPERTOIRE. If the clinical picture is strongly suggestive of an antipho spholipid syndrome, recommend anticardiolipin and svjp-[id number]-mwafjoapnxfq (IgG and IgM) antibody tests. Jyoti Patton M.D. ??[phone] 09-12-2012. NINR = 0.88 N = 0.86-1.14 ??(No additional charge) NTT = 17.5 N = 13.0-19.0 sec ??(No additional charge) APTT'S: ?? Seconds Reagent = Stago LS Normal ??= 36 Patient ??= 37 1:2 Mix ??= N/A Reference = 31-43 DILUTE JUANPABLO VIPER VENOM TEST: DRVVT Screen Ratio = 0.95 Normal = <1.28 Specimen Anatomical Collection Method Collection Time Receive d Time (Source) Location / / Volume Laterality 09/11/2012 12:10 09/11/2012 PM ASSISTANT PROFESSOR OF RELIGION 12:25 PM ASSISTANT PROFESSOR OF RELIGION Radha Milligan MD LAB - BLOOD ORDERABLES Performing Organization Address City/State/ZIP Code Phon e Number [facility] [address] LABS Homocysteine (09/11/2012 12:10 PM ASSISTANT PROFESSOR OF RELIGION) Analysis Performed At Patho logist Time Signature Homocysteine 10.7 4.0 - 12.0 [facility] umol/L umol/L [facility] Comment: A normal plasma homocysteine level rules out homocystinuria homozygote and defects involving the remethylation of homocysteine. ??The heterozygous state for cystathionine betasynthase (CBS) is best tested by methionine loading. Jose Valentino, Ph.D. Specimen Anatomical Collection Method Collection Time Receive d Time (Source) Location / / Volume Laterality 09/11/2012 12:10 09/11/2012 PM ASSISTANT PROFESSOR OF RELIGION 12:25 PM ASSISTANT PROFESSOR OF RELIGION Radha Milligan MD LAB - BLOOD ORDERABLES Performing Organization Address City/[facility]/ZIP Code Phon e Number [facility] [address] LABS Cardiolipin antibody IgG and IgM (09/11/2012 12:10 PM ASSISTANT PROFESSOR OF RELIGION) [facility] Method Time Signature Cardiolipin IgG <15.0 0 - 15.0 [facility] Interpretation: ??Negative GPL [facility] Cardiolipin IgM <12.5 0 - 12.5 [facility]a Interpretation: ??Negative MPL UNI [facility] LABS Specimen Anatomical Collection Method Collection Time Receive d Time (Source) Location / / Volume Laterality 09/11/2012 12:10 09/11/2012 PM ASSISTANT PROFESSOR OF RELIGION 12:25 PM ASSISTANT PROFESSOR OF RELIGION Radha Milligan MD LAB - BLOOD ORDERABLES Performing Organization Address City/State/ZIP Code Phon e Number [address] LABS Antithrombin III (09/11/2012 12:10 PM ASSISTANT PROFESSOR OF RELIGION) Analysis Performed At [facility] logist Time Signature Antithrombin III 91 83 - 125 % [facility] Chromogenic [facility]S Specimen Anatomical Collection Method Collection Time Receive d Time (Source) Location / / Volume Laterality 09/11/2012 12:10 09/11/2012 PM ASSISTANT PROFESSOR OF RELIGION 12:25 PM ASSISTANT PROFESSOR OF RELIGION Radha Milligan MD LAB - BLOOD ORDERABLES Performing Organization Address City/[facility]/ZIP Code Phon e Number [facility] [address] LABS Factor 5 leiden mutation analysis (09/11/2012 12:03 PM ASSISTANT PROFESSOR OF RELIGION) Component Value Ref Test Analysis Performed At [facility] Range Method Time Signature Copath Report Patient Name: MARLENE MCCALL MR#: [id number] Specimen #: [id number] Collected: 09/11/2012 12:03 Received: 09/11/2012 14:49 Reported: 09/14/2012 16:53 Ordering Phy(s): RADHA MILLIGAN TEST(S) REQUESTED: A: Factor 5 Leiden Mutation by PCR B: DNA Isolation, High purity extraction SPECIMEN DESCRIPTION: Blood METHODOLOGY: ?? The regions of genomic DNA containing the G1 691A Factor 5 gene mutation (Factor V Leiden) and the Factor 2(Prothrombin Z41697P) gene mutation were simultaneously amplified using the polyme rase chain reaction. ??The amplified products were digested with restri ction endonuclease TaqI and products were analyzed by gel electrop horesis. RESULTS: Factor V 1691G>A (Leiden) ??RESULTS: Mutation analyzed: ? 1691G>A Factor V 1691G>A (Leiden) ??Interpretation: ?ABSENT Factor V 1691G>A (Leiden) mutation ??genotype: ?G/G INTERPRETATION: The patient is negative for the Factor V 1691G>A (Leiden) mu tation. This test was developed and its performance determined by [facility] ??[facility]. It has not been cleared or approved by the U.S. Food and Samy g Administration. ??The FDA has determined that such clearance or approval is not necessary. ??Pursuant to the requirements of CLIA'88, this laboratory has established and verified the test's accuracy and precision. ??This test is used for clinical purposes. Electronically Signed Out By: Vickey Rodriguez MD, PhD ??[facility] LOCATION: [address] [id number] COLLECTION SITE: Client: ??[facility] Location: ??[facility] (R) Specimen Anatomical Collection Method Collection Time Receive d Time (Source) Location / / Volume Laterality 09/11/2012 12:03 09/11/2012 2:49 PM ASSISTANT PROFESSOR OF RELIGION PM ASSISTANT PROFESSOR OF RELIGION Radha Milligan MD LAB - GENOMICS Performing Organization Address City/State/ZIP Code Phon e Number [place] documented in this encounter Visit Diagnoses Not on filedocumented in this encounter Care Teams Laborer/Grade Check Relationship Specialty Start Date End Date Abbe Charles MD PCP - General 04/01/08 04/13/[address] [address] documented as of this encounter
--- OUTSIDE RECORDS SUMMARY | 2022-07-25 16:09 | XMS_ITS | Encounter Summary ---
:1950 Author Organization [place] Address [address] [place] [address] Care Team Providers Name Role Phone Abbe Charles MD Primary Care Provider Reason for Visit Auth/Cert - Closed Specialty Diagnoses / Procedures Referred By Contact Refer red To Contact Gastroenterology Diagnoses Screening Rh Endoscopy Procedures COLONOSCOPY [address] [place] [address] Phone: Fax: Referral ID Status Reason Start Date Expiration Date Visits Requ ested Visits Authorized [id number] Closed 1 1 Encounter Details Date Type Department Care Team Description 10/17/2012 Hospital Encounter [facility] Damon Jaimes, Endoscopy Betito HAMMOND [address] [place], [place] GASTROENTEROLOGY [address] 118[address] [facility] [phone] [id number] (Wo rk) Social History Tobacco Use Types Packs/Day Years Used Date Never Smoker Alcohol Use Standard Drinks/Week Comments No 0 (1 standard drink = 0.6 oz pure alcoho l) Sex Assigned at Date Recorded Not on file documented as of this encounter Last Filed Vital Signs Vital Sign Reading Time Taken Comments Blood Pressure 124/70 10/17/2012 12:08 PM FINAL INSPECTOR TRUCK TRAILER Pulse - - Temperature - - Respiratory Rate 12 10/17/2012 12:08 PM FINAL INSPECTOR TRUCK TRAILER Oxygen Saturation 93% 10/17/2012 12:08 PM FINAL INSPECTOR TRUCK TRAILER Inhaled Oxygen Concentration - - Weight 113.4 kg (250 lb) 10/17/2012 10:43 AM FINAL INSPECTOR TRUCK TRAILER Height 185.4 cm (6' 1) 10/17/2012 10:43 AM FINAL INSPECTOR TRUCK TRAILER Body Mass Index 32.98 10/17/2012 10:43 AM FINAL INSPECTOR TRUCK TRAILER documented in this encounter Medications at Time [...] by 0 (MULTI-VITAMIN) per mouth daily. tablet Sunset-3 Fatty Acids Take by mouth. 0 0 [...] Electronically by: Damon Jaimes October 17, 2012 L INSPECTOR TRUCK TRAILER documented in this encounter Plan of Treatment Not on filedocumented as of this encounter Procedures Procedure Name Priority Date/Time Associated Diagnosis Comme nts COLONOSCOPY 10/17/2012 11:07 AM FINAL INSPECTOR TRUCK TRAILER Screening Special Needs Ref: Dr Abbe Costa COLONOSCOPY Routine 10/17/2012 11:02 AM FINAL INSPECTOR TRUCK TRAILER Resu lts for this procedure are in the results section . documented in this encounter Results COLONOSCOPY (10/17/2012 11:02 AM FINAL INSPECTOR TRUCK TRAILER) [facility] Method Time Signature COLONOSCOPY [facility] RAD IOLOGY RESULTS Patient Name: Damon Mccall [...] / / Volume Laterality 10/17/2012 11:02 AM FINAL INSPECTOR TRUCK TRAILER Abbe Charles MD PROCEDURES Performing Organization Address City/State/ZIP Code Phon e Number RADIOLOGY RESULTS documented in this encounter Visit Diagnoses Not on filedocumented in this encounter Active and Recently Administered Medications Times are shown in FINAL INSPECTOR TRUCK TRAILER. PRN Medication Order 10/15/2012 10/16/2012 10/17/2012 fentaNYL (SUBLIMAZE) injection (CANCELED) 1119 (Given - Provider: Damon Jaimes MD) PRN, Starting Mon10/17/12 at 1119, moderate to severe pain, Int ra-procedure midazolam (VERSED) injection (CANCELED) 111 (Given - Provider: Damon Jaimes MD) PRN, Starting Mon10/17/12 at 1119, anxiety, Intra-procedure sodium chloride (PF) 0.9% PF flush 3 mL (CANCELED) 1119 (Given - Provider: Damon Jaimes MD) 3 mL, Intravenous, EVERY 1 HOUR PRN, dilip e flush, post meds or blood draw, Starting Mon10/17/12 at 1112, for peripheral IV flush post IV meds, Pre-procedure documented in this encounter Care Teams Boring Machine Operator Relationship Specialty Start Date End Date Abbe Charles MD PCP - General 04/01/08 04/13/[address] [address] documented as of this encounter
--- OUTSIDE RECORDS SUMMARY | 2022-07-25 16:09 | XMS_ITS | Encounter Summary ---
:1950 Author Organization [place] Address [facility]0 [facility] [place] [address] Care Team Providers Name Role Phone Abbe Charles MD Primary Care Provider Reason for Visit Reason Onset Date Comments Diabetes Education 06/19/2008 Encounter Details Date Type Department Care Team Description 06/19/2008 Telephone [facility] [address], Diabetes Education [facility] [address] HOSP [address] [address] [address] [phone] [place], [place] [phone] (Wo rk) Social History Tobacco Use Types Packs/Day Years Used Date Never Assessed Sex Assigned at Date Recorded Not on file documented as of this encounter Miscellaneous Notes Telephone Encounter - [address] - 06/19/2008 9:25 AM CDT GOOD job! and keep at it--look forward to that food record to see if we can do some problem solving--although it sounds like you aredoing\have done that. and I know those classes will assist as well. Sebastian leaving my position here next week and will have you continue contact with Emerson Pereira [email or web address] Stay healthy Jovanna From: Damon Mccall [[email or web address]] Sent: May 9:14 AM To: Jovanna Amezquita Subject: RE: how are you doing Hi Jovanna: I started off with a bang and I am still working toward my weight loss. I have lost 19 Lbs and feel pretty good, except for about 4 nights a week my feet sting like crazy. My levels in the morning are between 102 and 111. If I eat anything after 8:00 PM it tests around 110 to 127. I never completed that 1st week of 3 readings a day. I will start this Mon. and keep track so I can send it to you. I did not complete those classes but promise to do so in the next few weeks. Thanks for getting back in touch. Damon Mccall [employer] Cell - [phone] Desk - [phone] Fax - [phone] Email - [email or web address] Site [email or web address] Mailing Address - [phone] [place] [address] documented in this encounter Plan of Treatment Not on filedocumented as of this encounter Visit Diagnoses Not on filedocumented in this encounter Care Teams Itinerant Teacher Assistant Relationship Specialty Start Date End Date Abbe Charles MD PCP - General 04/01/08 04/13/[address] [phone] documented as of this encounter
[2022-07-25 16:10] LABS: Basophils Absolute Auto 0.05 K/uL (0.00-0.30); Basophils Percent Auto 0.7 % (0.0-3.0); Eosinophils Absolute Auto 0.24 K/uL (0.00-0.50); Eosinophils Percent Auto 3.2 % (0.0-7.0); Hematocrit 37.5 % (37.0-53.0); Hemoglobin* 12.3 gm/dL (13.5-17.5); Immature Granulocytes Abs Auto 0.03 K/uL (0.00-0.30); Lymphocytes Absolute Auto 1.92 K/uL (0.90-2.90); Lymphocytes Percent Auto 25.5 % (20-44); Mean Corpuscular HGB Conc 33 gm/dL (32-36); Mean Corpuscular Hemoglobin 30 pg (26-34); Mean Corpuscular Volume 91 fL (80-100); Monocytes Percent Auto 9.3 % (0.0-11.0); Neutrophils Absolute Auto 4.59 K/uL (1.7-7.0); Neutrophils Percent Auto 60.9 % (42.0-72.0); Platelet Count* 203 K/uL (140-440); RDW Coefficient of Variation % 12.2 % (11.5-15.5); Red Blood Count 4.14 m/uL (4.30-5.90); White Blood Count* 7.53 K/uL (4.50-11.00)
--- OUTSIDE RECORDS SUMMARY | 2022-07-25 16:10 | XMS_ITS | Encounter Summary ---
:1950 Author Organization [place] Address [facility]0 [facility] [address] Care Team Providers Name Role Phone Abbe Charles MD Primary Care Provider Bill Thao MD Primary Care Provider [phone] Radha Montoya RN Unavailable Abbe Charles MD Primary Care Provider Sindy Moses MD Primary Care Provider Encounter Details Date Type Department Care Team Description 10/08/2003 Historic Results [facility] Heart Unknown, [facility] [address] [place] [address] Social History Tobacco Use Types Packs/Day Years Used Date Never Assessed Sex Assigned at Date Recorded Not on file documented as of this encounter Plan of Treatment Not on filedocumented as of this encounter Procedures Procedure Name Priority Date/Time Associated Diagnosis Comme nts ECHO CARDIAC - HIM SCAN 10/08/2003 12:00 AM GENERATION TECHNOLOGIST - ARCHIVE documented in this encounter Results ECHO CARDIAC - HIM SCAN - ARCHIVE (10/08/2003 12:00 AM GENERATION TECHNOLOGIST) Specimen (Source) Anatomical Location Collection Method / Collectio n Time Received Time / Laterality Volume 10/08/2003 Narrative This result has an attachment that is no t available. Provider Scan CV ECHO ORDERABLES documented in this encounter Visit Diagnoses Not on filedocumented in this encounter Care Teams Wharf Tender Helper Relationship Specialty Start Date End Date Abbe Charles MD PCP - General 04/01/08 04/13/14 [facility] [address] [place] [address], [place] [address] Bill Thao, PCP - General Family Practice 04/14/14 07/16/14 [address] [place] [address] Abbe Charles MD PCP - General Family Practice 07/17/14 02/27/[address] [phone] Sindy Moses MD PCP - General 02/28/16 05/04/16 [facility] [address], [place] [id number] Radha Montoya RN Clinic Appeals Court Associate Justice Nurse 04/15/14 10/26/14 documented as of this encounter
--- OUTSIDE RECORDS SUMMARY | 2022-07-25 16:10 | XMS_ITS | Encounter Summary ---
:1950 Author Organization [place] Address [facility] [place] [address] Care Team Providers Name Role Phone Abbe Charles MD Primary Care Provider Bill Thao MD Primary Care Provider [phone] Radha Montoya RN Unavailable Abbe Charles MD Primary Care Provider Sindy Moses MD Primary Care Provider Encounter Details Date Type Department Care Team Description 11/23/2001 Historic Results [facility] Heart Unknown, [facility] [address] [place] [address] Social History Tobacco Use Types Packs/Day Years Used Date Never Assessed Sex Assigned at Date Recorded Not on file documented as of this encounter Plan of Treatment Not on filedocumented as of this encounter Procedures Procedure Name Priority Date/Time Associated Diagnosis Comme nts ECHO CARDIAC - HIM SCAN 11/23/2001 12:00 AM RESIDENTIAL FEE APPRAISER - ARCHIVE documented in this encounter Results ECHO CARDIAC - HIM SCAN - ARCHIVE (11/23/2001 12:00 AM RESIDENTIAL FEE APPRAISER) Specimen (Source) Anatomical Location Collection Method / Collectio n Time Received Time / Laterality Volume 11/23/2001 Narrative This result has an attachment that is no t available. Provider Scan CV ECHO ORDERABLES documented in this encounter Visit Diagnoses Not on filedocumented in this encounter Care Teams Security Controls Assessor Relationship Specialty Start Date End Date Abbe Charles MD PCP - General 04/01/08 04/13/14 [facility] [address] [place] [address], [place] [address] Bill Thao, PCP - General Family Practice 04/14/14 07/16/14 [address] [place] [address] Abbe Charles MD PCP - General Family Practice 07/17/14 02/27/[address] [phone] Sindy Moses MD PCP - General 02/28/16 05/04/16 [facility] [address], [place] [id number] Radha Montoya RN Clinic Trauma Registrar Nurse 04/15/14 10/26/14 documented as of this encounter
--- OUTSIDE RECORDS SUMMARY | 2022-07-25 16:10 | XMS_ITS | Encounter Summary ---
:1950 Author Organization [place] Address [address] [place] [address]. [place] [address] Care Team Providers Name Role Phone Unavailable Primary Care Provider Unavailable Encounter Details Date Type Department Care Team Description 10/07/2003 Results Only Abbe Charles MD [place] [phone] (Wo rk) Social History Tobacco Use Types Packs/Day Years Used Date Never Assessed Sex Assigned at Date Recorded Not on file documented as of this encounter Plan of Treatment Not on filedocumented as of this encounter Procedures Procedure Name Priority Date/Time Associated Diagnosis Comme [facility] ZC ECHO HEART Rout 10/07/2003 8:22 AM Results for this XTHORACIC,COMPLETE, CERTIFIED NEURODIAGNOSTIC TECHNOLOGIST procedur e are in W/O DOPPLER the results section. documented in this encounter Results ECHO HEART,COMPLETE (10/07/2003 8:22 AM CERTIFIED NEURODIAGNOSTIC TECHNOLOGIST) Specimen (Source) Anatomical Collection Method Collection Time Re ceived Time Location / / Volume Laterality 10/07/2003 8:22 AM CERTIFIED NEURODIAGNOSTIC TECHNOLOGIST Impressions Pacs, Data Conversion - 06/03/2004 12:13 PM CDT Tape #: ??[id number] ?? M-MODE(cm) ? AORTIC VALVE ?MITRAL VALVE ?? LA ? 4.0(<4.0) ? JONATHAN(cm sq.) ? MVA(cm sq.) Ao ? 3.5(<3.7) ?LVOT(cm) ? mean PG(mmHg) LVed ?? 4.4(<5.6) ?max PG(mmHg) ? max PG(mmHg) LVes ?2.5(variable) ? mean PG(mmHg) IVSd ?2.4(<1.2) ? max irvin V1(m/s) ? TRICUSPID VALVE LVPW 2.0(1.2) ?max irvin V2(m/s) ? 23.8TR max irvin(m/s) FS ? 42.1(>25%) ?P1/2t(msec) ? 22.7mmHg+RAP=RVSP EF ?60(55-65%) ECHOCARDIOGRAM ? INDICATIONS: ??stroke. CONCLUSIONS: 1. ?Adequate technical study desp ite the patient's body size. 2. ?Normal sinus rhythm present. ?? 3. ?Left ventricular size is norm al. ??There is moderate concentric left ventricular hypertrophy, with somewhat more prominent degree of hypertrophy involving the intr aventricular septum. ?? However, there is no evidence for IHSS o r dynamic left ventricular outflow obstruction. ?? 4. ?Left ventricular ejection fra ction and regional wall motion are normal. ?? 5. ?Right ventricular systolic fu nction is normal. ?? 6. ?Borderline to mild left atria l enlargement. ?? 7. ?Trileaflet aortic valve with minor sclerotic changes but with good valve opening. ?? 8. ?The mitral leaflets are anato mically normal with trace mitral insufficiency. ?? 9. ?Trace tricuspid insufficiency . ??Estimates of right ventricular pressures are normal. ?? 10. ??Pericardium is normal. ?? 11. ??Atrial septum was not adequately i nterrogated with very poor subcostal imaging. ??However, there is n o suspicion of a significant intracardiac shunt. ?? 12. ??No cardiac source of embolus can b e identified from this study. ?? The echocardiogram is remarkable for sub stantial left ventricular hypertrophy. ADDENDUM BUBBLE STUDY INDICATION: ??Stroke. CONCLUSION: ??Two bubble contrast inject ions were done. ??The initial injection failed to show clear evidence for shunt. ??The second resting injection showed very scant bubb les that show up in the left heart. ??The level of the shunt cannot b e clearly ascertained. ?? IMPRESSION: ??Weakly positive bubble con trast study for right to left shunting. Abbe Charles MD SPECIAL IMAGING STUDIES documented in this encounter Visit Diagnoses Not on filedocumented in this encounter
--- OUTSIDE RECORDS SUMMARY | 2022-07-25 16:11 | XMS_ITS | Clinical Summary ---
:1950 Author Organization [facility] [place] [address] Care Team Providers Name Role Phone Freedom Monge MD Primary Care Provider [phone] Allergies No known active allergies Medications Medication Sig Dispensed Refills Start Date End Date Status folic acid-vit b6-vit Take 1 tablet by 0 04/22/2013 Active b12, 0.8-10-0.115mg, mouth once daily. (FOLTABS 800) tablet aspirin (ECOTRIN) 81 mg Take 81 mg by 0 04/13/2014 Active enteric coated tablet mouth once daily with a meal. furosemide (LASIX) 20 mg Take 40 mg by 0 02/29/2016 Active tablet mouth every morning. PRADAXA 150 mg capsule Take 150 mg by 2 11/14/2016 Active mouth 2 times daily. atorvastatin (LIPITOR) Take 80 mg by 2 10/17/2016 Active 80 mg tablet mouth at bedtime. blood-glucose meter Use to test blood 0 04/23/2014 Active sugars 1 times daily for dizziness.. Brand per patient preference and health care plan. cholecalciferol, Vitamin Take 1-2 tablets 0 Active D3, 5,000 unit tab by mouth daily. tablet Cyanocobalamin 2,500 mcg Take 5,000 mcg by 0 Active tablet mouth daily. HYDROcodone-acetaminophe Take 1 tablet by 0 Active n, 5-325 mg, (NORCO) per mouth every 6 tablet hours if needed for Pain Max of 4 tablets per day. 1 tablet almost every night and day time as needed. albuterol HFA (VENTOLIN Inhale 2 Puffs by 0 Active HFA) 90 mcg/actuation mouth every 4 inhaler hours if needed. hydroCHLOROthiazide 12.5 Take 12.5 mg by 0 Active mg tablet mouth once daily. metFORMIN (GLUCOPHAGE) Take 850 mg by 0 Active 850 mg tablet mouth once daily with a meal. amLODIPine (NORVASC) 10 Take 1 tablet by 30 tablet 0 9 Active mg tabletIndications: mouth once daily. Essential hypertension traZODone (DESYREL) 150 Take 150 mg by 0 Active mg tablet mouth at bedtime. rOPINIRole (REQUIP) 2 mg Take 2 mg by mouth 0 Active tablet every morning. escitalopram oxalate Hold escitalopram 0 10/15/2020 Active (LEXAPRO) 20 mg tablet (Lexapro) while taking the antibiotics Zyvox (linezolid). cephalexin (KEFLEX) 500 0 02/10/2022 Active mg capsule DULoxetine (CYMBALTA) 60 60 mg once daily. 0 Active mg Delayed-release capsule glipiZIDE (GLUCOTROL) 5 Take 5 mg by mouth 0 Active mg tablet 2 times daily before meals. linezolid (ZYVOX) 600 mg Twice A Day 0 Active tablet lisinopriL (PRINIVIL; Daily 0 11/23/2021 Active ZESTRIL) 20 mg tablet Magnesium Oxide 500 mg Daily 0 Active cap metOLazone (ZAROXOLYN) 5 Take 5 mg by mouth 0 2020 Active mg tablet once daily. torsemide (DEMADEX) 20 Take 40 mg by 0 10/04/2021 Active mg tablet mouth once daily. medication order Dx: DM with neuropathy, flat feet, crack ed skin, calluses 1 Each 0 02/15/2022 Active composerIndications: Rx: Triple density custom mo lded accommodative insoles with extra depth shoes Type 2 diabetes mellitus with diabetic neuropathy, unspecified whether chcf insulin use (HC), Cracked skin on feet, Foot callus, Dry skin ammonium lactate 12% Apply generous 385 g 5 02/15/2022 Active (LACHYDRIN) 12 % amount to dry skin creamIndications: Type 2 and calluses on diabetes mellitus with foot as needed diabetic neuropathy, daily unspecified whether long term care pharmacist insulin use (HC), Cracked skin on feet, Foot callus, Dry skin Active Problems Problem Noted Date DIAMOND (acute kidney injury) 08/21/2019 H/O: CVA (cerebrovascular accident) 08/18/2019 Encephalopathy acute 08/18/2019 ACP (advance care planning) 08/18/2019 A-fib 08/18/2019 Hyperopia of both eyes with astigmatism and presbyopia 09/06/2018 MGD (meibomian gland dysfunction) 11/22/2016 Nuclear senile cataract of both eyes 11/22/2016 Drusen of left macula 11/22/2016 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 DYSPNEA 11/21/2001 PALPITATIONS 11/14/2001 LUMBAGO 10/09/2001 PAIN IN JOINT, LOWER LEG 03/27/2001 Headache 01/17/2000 HYPERTENSION, ESSENTIAL NOS 01/17/2000 HTN (hypertension) Severe sepsis Type 2 diabetes mellitus, without long-term current us e of insulin Bacteremia Encounters Date Type Specialty Care Team Description 05/17/2022 Lab Requisition Radha Draper MD from Last 3 Months Immunizations Name Administration Dates Next Due COVID-19 vaccine ([employer] 08/23/2021, 12/08/2020, 30mcg/0.3mL) PF MDV Influenza Virus, Unspecified 06/19/2019 Influenza, IIV4 08/23/2021, 06/19/2019, 09/20/2018, 07/25/2016 Pneumococcal Poly,23-Valent 06/11/2018 (Pneumovax) Pneumococcal conj 13-Valent (Prevnar 06/11/2018 13) Tdap 03/12/2018 Zoster (Shingrix-RZV, recombinant) 06/11/2018 Family History Medical History Relation Name Comments Other Grandchild lazy eye Genetic Other stong family hx of diabetes and coranary artery disease Relation Name Status Comments Grandchild Other Social History Tobacco Use Types Packs/Day Years Used Date Never Smoker 0 Smokeless Tobacco: Never Used Alcohol Use Standard Drinks/Week Comments Not Asked 0 (1 standard drink = 0.6 oz pure alcoho l) Alcoholic Drinks/day: 0 Sex Assigned at Date Recorded Not on file Obstetrics History Last Filed Vital Signs Vital Sign Reading Time Taken Comments Blood Pressure 145/74 02/11/2022 1:45 PM CDT Pulse 64 02/11/2022 1:45 PM CDT Temperature 36.2 ??C (97.1 ??F) 10/15/2020 3:51 PM APPAREL MERCHANDISER Respiratory Rate 20 10/15/2020 3:51 PM APPAREL MERCHANDISER Oxygen Saturation 98% 10/15/2020 3:51 PM APPAREL MERCHANDISER Inhaled Oxygen Concentration - - Weight 138.1 kg (304 lb 6.4 oz) 02/11/2022 1:45 PM CDT Height 185.4 cm (6' 1) 10/10/2020 10:05 AM APPAREL MERCHANDISER Body Mass Index 40.16 10/10/2020 10:05 AM APPAREL MERCHANDISER Plan of Treatment Health Maintenance Due Date Last Done Comments Depression screening for age 12+ 1960 BMI (ht and wt on same day) for 1966 age 18+ Hepatitis C screening for age 0604/09/1966 18-79 Colonoscopy through age 75 1993 Lipids for age 45-75 10/11/2004 10/11/1999 Medicare Wellness for age 65+ 2013 Zoster (shingles) series for age 1008/06/2018 06/11/2018 50+ (2 of 2) COVID-19 vaccine series (4 - 12/21/2021 08/23/2021, 021, Booster for Pfizer series) 11/17/2020 Influenza for age 65+ 06/23/2022 08/23/2021, 06/19/2019, 06/19/2019, Additional history exists Pneumococcal series for age 65+ (2 06/11/2023 06/11/2018, 0 06/11/2018 - PPSV23 or PCV20) Tetanus booster 03/12/2028 03/12/2018 Tdap Completed 03/12/2018 Procedures Procedure Name Priority Date/Time Associated Diagnosis Comme nts LAB TRACKING EVENT Routine 05/17/2022 11:00 AM CDT PATH TISSUE EXAM Routine 05/17/2022 11:00 AM Resu lts for this CDT procedure are i n the results section. from Last 3 Months Results LAB TRACKING EVENT (05/17/2022 11:00 AM CDT) Specimen Anatomical Collection Method Collection Time Receive d Time (Source) Location / / Volume Laterality Other (Other) Client Collect / 05/17/2022 11:00 2021 3:59 Unknown AM CDT PM CDT Radha Draper MD LAB BILL ONLY Performing Organization Address City/State/ZIP Code Phon e Number [facility] [address] [place] [address] LABORATORY-CENTRAL 2000 LABORATORY PATH TISSUE EXAM (05/17/2022 11:00 AM CDT) Component Value Ref Test Analysis Performed At [facility] gist Range Method Time Signature Case Report Pathology Report ?Case: [id number] ? 05/18/2022 [facility] Authorizing Provider: ??Marianne as, Radha A, MD ?? Collected: ? 05/17/2022 1100 ? 3:43 PM CDT HEALTH Ordering Location: ? [facility] ?Received: ?05/17/2022 1621 ? MELONY ALVARADO Pathologist: ? He Corado Jr., ? ENTRAL ? MD ? LABORATORY Specimen: ?Left neck ? Final SKIN, LEFT NECK, RE-EXCISION: 05/18/2022 [facility] Electronically Diagnosis 1. Residual squamous cell carcinoma, free of margins 3:43 PM [facility] signed by 2. Changes of prior biopsy LAB ORATORY-C He Corado Jr, MD LABORATORY on 022 at 3:43 PM Clinical Squamous cell 05/18/2022 [facility] Information carcinoma 3:43 PM [facility] ([id number]) LABORATORY-C ENTRSC LABORATORY Gross A) Received in formalin, lab eled with the patient's name and left neck, is a 6.7 x 2.2 x 1.0 cm un-oriented skin ellipse. There is a 1.4 x 1.1 cm wrinkled lugo-red lesion which is 0.5 cm from the neare 05/18/[address] [facility] [address] peripheral skin edge. The specimen is inked black, is serially sectioned and entirely submitted: 3:43 PM [facility] 1. Tips LABORATORY-C 2-12. Cross-sections, sequentially submitted (lesion in ca ssettes 5-8) [facility] LABORATORY LH 05/17/2022 Microscopic The final diagnosis is based on microscopic examination of appropriate sections of all specimens. 05/18/2022 [facility] Description 3:43 PM [facility] LABORATORY-C ENTRAL LABORATORY Additional 05/18/2022 [facility] Information Interpreted at [facility], Central Laboratory - [address], [place] [address] 3:43 PM [facility] LABORATORY-C ENTRSC LABORATORY Specimen Anatomical Collection Method Collection Time Receive d Time (Source) Location / / Volume Laterality Other (Left 05/17/2022 11:00 05/17/2022 4:21 neck) AM CDT PM CDT Radha Draper MD PATHOLOGY/CYTOLOGY Performing Organization Address City/State/ZIP Code Phon e Number [facility] [address] [place] [address] LABORATORY-CENTRAL 2000 LABORATORY from Last 3 Months Insurance Payer Benefit Plan / Subscriber ID Effective Dates Phone Addre ss Type Group [employer]UE [employer] BL[employer] [id number] 2019-Present [address] MR [place], [place] [id number] Advance Directives Latest Code Status on File Code Status Date Activated Date Inactivated Comments Full Code 10/10/2020 5:18 PM 10/15/2020 7:29 PM Code Status Discussion: Discussed Full Code 08/18/2019 8:27 PM 08/27/2019 6:11 PM Care Teams Principal Solutions Architect Relationship Specialty Start Date End Date Freedom Monge MD PCP - General Family Practice 10/10/20
[2022-07-25 16:15] LABS: Slide Review Reflex No
[2022-07-25 16:32] LABS: Chloride* 102 mmol/L (96-114); Potassium* 4.2 mmol/L (3.6-5.1); Sodium* 136 mmol/L (135-149)
[2022-07-25 16:33] VITALS: BP 173/82; PULSE 69; RESP 20; O2SAT 96
[2022-07-25 16:35] LABS: Blood Urea Nitrogen* 19 mg/dL (7-30); Calcium* 9.4 mg/dL (8.4-10.6); Carbon Dioxide* 27 mmol/L (20-32); Creatinine* 1.1 mg/dL (0.5-1.5); Est. Creatinine Clearance* 64.67; Estimated Glomerular Filt Rate 70 ml/min; Glucose* 150 mg/dL (60-115)
[2022-07-25 16:45] LABS: NT Pro B Type NatriureticPept* 181 PG/mL (0-125)
== END 2022-07-25 17:28 | disposition home or self-care (01) ==
PROVIDERS: Emergency Provider Emergency Medicine Emergency Medical Services; PCP Family Medicine
DX: E11.42 Type 2 diabetes mellitus with diabetic polyneuropathy (principal); Z79.84 Long term (current) use of oral hypoglycemic drugs; R60.9 Edema, unspecified
CPT/HCPCS: 36415; 80048; 83605; 83880; 85025; 99283; 99284